=== PATIENT | female | born 1975 | race African-American/Black ===

== ENCOUNTER 2019-11-19 16:49 | Emergency (ER) | payer SELFPAY ==
--- NOTE | 2019-11-19 17:16 | ER ---
Nurse's Notes [facility] Name: Bala Aguilera Age: 43 yrs Sex: Female : 1975 Arrival Date: 11/19/2019 Time: 16:53 Bed 13 Private MD: Diagnosis: Person with feared health complaint in whom no diagnosis is made Presentation: 11/18 16:54 Chief complaint: EMS states: [facility] sent patient because she has a chest xray that ls4 cannot exclude TB, PT STATES THIS IS NOT NEW AND SHE HAS ALREADY GONE THROUGH ALL OF THE STEPS TO BE CLEARED YEARS AGO. Coronavirus screen: Proceed with normal triage. Patient denies a cough. Patient denies shortness of breath or difficulty breathing. Patient denies measured and/or subjective temperature greater than 100.4F prior to today's visit. Patient denies travel on a cruise ship or to a country the [facility] currently lists as an affected area. Patient denies contact with known and/or suspected case of COVID-19. Ebola Screen: No symptoms or risks identified at this time. Risk Assessment: Do you want to hurt yourself or someone else? Patient reports no desire to harm self or others. Onset of symptoms is unknown. 16:54 Method Of Arrival: EMS: [facility] ls4 16:54 Acuity: MINNIE 4 ls4 16:54 Initial Sepsis Screen: Does the patient meet any 2 criteria? No. Patient's initial ls4 sepsis screen is negative. Does the patient have a suspected source of infection? No. Patient's initial sepsis screen is negative. 16:55 Care prior to arrival: None. Activity prior to arrival: None. ls4 Triage Assessment: 16:55 General: Appears in no apparent distress. Behavior is calm, cooperative. Neuro: No ls4 deficits noted. Cardiovascular: Denies chest pain. Respiratory: Airway via trache Respiratory effort is even, unlabored, Respiratory pattern is regular, Ventilator assessment: Breath sounds are clear Breath sounds are diminished bilaterally. Denies shortness of breath labored breathing, air hunger. GI: No signs and/or symptoms were reported involving the gastrointestinal system. : No signs and/or symptoms were reported regarding the genitourinary system. Derm: Reports PRESSURE ULCER TO SACRUM. Musculoskeletal: Circulation, motion, and sensation intact. Capillary refill < 3 seconds, Range of motion: limited in all extremities. 16:55 Pain: Complains of pain in buttocks Pain currently is 5 out of 10 on a pain scale. ls4 Quality of pain is described as aching, Pain began PRESSURE ULCER. 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 - Social history:: Smoking status: Patient denies any tobacco usage or history of. Screenin:55 Abuse screen: Denies threats or abuse. Denies injuries from another. ls4 16:55 Nutritional screening: No deficits noted. Tuberculosis screening: No symptoms or risk ls4 factors identified. Fall Risk None identified. Assessment: 17:55 Reassessment: Pt. tolerated PO Challenge well. rb1 18:06 Reassessment: Patient and/or family updated on plan of care and expected duration. Pain ls4 level reassessed. Patient is alert, oriented x 3, equal unlabored respirations, skin warm/dry/pink. CALLED [facility] FROM PERSONAL PHONE AFTER SEVERAL ATTEMPTS FROM DESK PHONE. SPOKE TO GALLO. REPORT GIVEN TO GALLO, QUESTIONS ANSWERED. GALLO MADE AWARE THAT. 07 02:19 Reassessment: ATTEMPTED TO CALL [facility] FROM HOSPITAL PHONE, NO ANSWER. CALLED FROM [facility] PERSONAL PHONE WITH NO SUCCESS. UNABLE TO CONFIRM WITH [place] REGARDING TRANSPORT FOR PT. Vital Signs: 11/18 16:55 BP 101 / 64; Pulse 78; Resp 24; Temp 98.0(O); Pulse Ox 96% on R/A; Weight 170.1 kg; ls4 Height 5 ft. 9 in. (175.26 cm); Pain 3/10; 18:00 BP 96 / 54; Pulse 88; Resp 22; Pulse Ox 97% on R/A; Pain 3/10; ls4 19:32 BP 98 / 57; Pulse 84; Resp 20; Pulse Ox 97% on R/A; Pain 0/10; ls4 16:55 Body Mass Index 55.38 (170.10 kg, 175.26 cm) ls4 ED Course: 16:53 Patient arrived in ED. ls4 16:55 No apparent distress. ls4 16:55 Patient has correct armband on for positive identification. Bed in low position. Call ls4 light in reach. Side rails up X 1. shelter monitor on. Pulse ox on. NIBP on. Warm blanket given. Verbal reassurance given. Diet: Patient given juice. Tolerated well. 16:55 No provider procedures requiring assistance completed. Patient did not have IV access ls4 during this emergency room visit. Patient maintains SpO2 saturation greater than 95% on room air. 16:59 Triage completed. ls4 17:00 Lorna Monet [facility]-C [facility]. snw 17:00 Derrick Vieira MD is Attending Physician. snw 17:49 Steph Araujo, DARA is Primary Nurse. ls4 20:43 Arm band placed on right wrist. ls4 Administered Medications: 17:50 Drug: [place] 5 mg-325 mg 1 tabs Route: PO; rb1 18:20 Follow up: Response: No adverse reaction; Marked relief of symptoms ls4 Outcome: 17:15 Discharge ordered by MD. snw 20:08 Patient left the ED. ls4 20:08 Discharged to [facility]. Report called to ZITA PATEL. ls4 11/19 02:21 Condition: stable ls4 Discharge instructions given to EMS. Signatures: Lorna Monet FNP-C HORSE GROOMER-Csnw Charley Spence, RN RN rb1 Steph Araujo RN RN ls4 Corrections: (The following items were deleted from the chart) 11/18 20:47 20:43 Immunization history: Adult Immunizations up to date, Last tetanus immunization: ls4 up to date ls4 20:47 20:45 Social history: Smoking status: Patient denies any tobacco usage or history of. ls4 ls4 21:16 20:08 Reassessment: ls4 ls4 11/19 02:15 0707 18:02 General: Appears in no apparent distress. Behavior is calm, cooperative, ls4ls4 11/19 02:15 0707 18:02 Pain: Pain: ls4 ls4 11/19 02:18 02:17 BP 98 / 57; Pulse 84bpm; Resp 20bpm; Pulse Ox 97% RA; Pain 0/10; ls4 ls4 02:19 0707 20:06 Reassessment: Patient and/or family updated on plan of care and expected ls4 duration. Pain level reassessed. Patient is alert, oriented x 3, equal unlabored respirations, skin warm/dry/pink. CALLED [facility] FROM PERSONAL PHONE AFTER SEVERAL ATTEMPTS FROM DESK PHONE. SPOKE TO GALLO. REPORT GIVEN TO GALLO, QUESTIONS ANSWERED. GALLO MADE AWARE THAT ls4
--- NOTE | 2019-11-19 17:16 | EDPHYS ---
Physician Documentation [facility] Name: Bala Aguilera Age: 43 yrs Sex: Female : 1975 Arrival Date: 11/19/2019 Time: 16:53 Bed 13 Private MD: ED Physician Derrick Vieira HPI: 11/18 17:12 This 43 yrs old Female presents to ER via EMS with complaints of Medical Clearance. snw 17:12 The patient or guardian reports Pt has hx of TB, treated, recheck negative. NH wants snw clearance. Chest x-ray done [facility] shows pulmonary edema, Pt with hx of sleep apnea requiring tracheostomy and CHF, COPD. Onset: The symptoms/episode began/occurred gradually. Associated signs and symptoms: The patient has no apparent associated signs or symptoms. Severity of symptoms: At their worst the symptoms were very mild. The patient has experienced similar episodes in the past. It is unknown whether or not the patient has recently seen a physician. pt is currently without complaint. 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 - Social history:: Smoking status: Patient denies any tobacco usage or history of. ROS: 17:17 Constitutional: Negative for fever, chills, and weight loss, Eyes: Negative for injury, snw pain, redness, and discharge, ENT: Negative for injury, pain, and discharge, Neck: Negative for injury, pain, and swelling, Cardiovascular: Negative for chest pain, palpitations, and edema, Respiratory: Negative for shortness of breath, cough, wheezing, and pleuritic chest pain, Abdomen/GI: Negative for abdominal pain, nausea, vomiting, diarrhea, and constipation. 17:17 : Negative for injury, bleeding, discharge, and swelling, MS/Extremity: Negative for injury and deformity, Skin: Negative for injury, rash, and discoloration, Neuro: Negative for headache, weakness, numbness, tingling, and seizure. 17:17 Back: Positive for decreased range of motion, pain at rest, pain with movement, pressure sore to buttock. Exam: 17:15 Head/Face: Normocephalic, atraumatic. Eyes: Pupils equal round and reactive to light, snw extra-ocular motions intact. Lids and lashes normal. Conjunctiva and sclera are non-icteric and not injected. Cornea within normal limits. Periorbital areas with no swelling, redness, or edema. ENT: Nares patent. No nasal discharge, no septal abnormalities noted. Tympanic membranes are normal and external auditory canals are clear. Oropharynx with no redness, swelling, or masses, exudates, or evidence of obstruction, uvula midline. Mucous membranes moist. Neck: Trachea midline, no thyromegaly or masses palpated, and no cervical lymphadenopathy. Supple, full range of motion without nuchal rigidity, or vertebral point tenderness. No Meningismus. + tracheostomy Chest/axilla: Normal chest wall appearance and motion. Nontender with no deformity. No lesions are appreciated. Cardiovascular: Regular rate and rhythm with a normal S1 and S2. No gallops, murmurs, or rubs. Normal PMI, no JVD. No pulse deficits. Respiratory: Lungs have equal breath sounds bilaterally, clear to auscultation and percussion. No rales, rhonchi or wheezes noted. No increased work of breathing, no retractions or nasal flaring. Abdomen/GI: Soft, non-tender, with normal bowel sounds. No distension or tympany. No guarding or rebound. No evidence of tenderness throughout. Back: No spinal tenderness. No costovertebral tenderness. Full range of motion. MS/ Extremity: Pulses equal, no cyanosis. Neurovascular intact. Full, normal range of motion. Neuro: Awake and alert, GCS 15, oriented to person, place, time, and situation. Cranial nerves II-XII grossly intact. Motor strength 5/5 in all extremities. Sensory grossly intact. Cerebellar exam normal. Psych: Awake, alert, with orientation to person, place and time. Behavior, mood, and affect are within normal limits. 17:15 Constitutional: The patient appears alert, awake, obese. 17:15 Skin: Appearance: normal except for affected area, left hand peeling and tender, pressure sore to buttock per pt report. Vital Signs: 16:55 BP 101 / 64; Pulse 78; Resp 24; Temp 98.0(O); Pulse Ox 96% on R/A; Weight 170.1 kg; ls4 Height 5 ft. 9 in. (175.26 cm); Pain 3/10; 18:00 BP 96 / 54; Pulse 88; Resp 22; Pulse Ox 97% on R/A; Pain 3/10; ls4 19:32 BP 98 / 57; Pulse 84; Resp 20; Pulse Ox 97% on R/A; Pain 0/10; ls4 16:55 Body Mass Index 55.38 (170.10 kg, 175.26 cm) ls4 MDM: 17:15 Patient medically screened. snw 17:17 Data reviewed: vital signs, nurses notes. Data interpreted:. Counseling: I had a snw detailed discussion with the patient and/or guardian regarding: the historical points, exam findings, and any diagnostic results supporting the discharge/admit diagnosis, the need for outpatient follow up, to return to the emergency department if symptoms worsen or persist or if there are any questions or concerns that arise at home. 11/18 17:15 Order name: PO challenge; Complete Time: 17:49 snw Administered Medications: 17:50 Drug: [place] 5 mg-325 mg 1 tabs Route: PO; rb1 18:20 Follow up: Response: No adverse reaction; Marked relief of symptoms ls4 Disposition: 11/19/19 17:15 Discharged to Home. Impression: Person with feared health complaint in whom no diagnosis is made. - Condition is Stable. - Medication Reconciliation Form, Thank You Letter, Antibiotic Education, Prescription Opioid Use form. - Follow up: Emergency Department; When: As needed; Reason: Worsening of condition. Follow up: Private Physician; When: As needed; Reason: Recheck today's complaints, Continuance of care, Re-evaluation by your physician. Addendum: 11/21/2019 21:22 Co-signature as Attending Physician, Derrick Vieira MD Did not see or evaluate patient. p s1 I was available in the ED for consultation. Signature for administrative purposes. . Signatures: Lorna Monet, EMY-C IT LEAD-Csnw Charley Spence, RN RN rb1 Derrick Vieira MD MD ps1 Steph Araujo RN RN ls4 Corrections: (The following items were deleted from the chart) 11/18 19:09 17:15 11/19/2019 17:15 Discharged to Home. Impression: Person with feared health ls4 complaint in whom no diagnosis is made. Condition is Stable. Forms are Medication Reconciliation Form, Thank You Letter, Antibiotic Education, Prescription Opioid Use. Follow up: Emergency Department; When: As needed; Reason: Worsening of condition. Follow up: Private Physician; When: As needed; Reason: Recheck today's complaints, Continuance of care, Re-evaluation by your physician. snw 20:08 19:09 11/19/2019 17:15 Discharged to Home. Impression: Person with feared health ls4 complaint in whom no diagnosis is made. Condition is Stable. Forms are Medication Reconciliation Form, Thank You Letter, Antibiotic Education, Prescription Opioid Use. Follow up: Emergency Department; When: As needed; Reason: Worsening of condition. Follow up: Private Physician; When: As needed; Reason: Recheck today's complaints, Continuance of care, Re-evaluation by your physician. ls4 20:47 20:43 Immunization history: Adult Immunizations up to date, Last tetanus immunization: ls4 up to date ls4 20:47 20:45 Social history: Smoking status: Patient denies any tobacco usage or history of. ls4 ls4
[2019-11-19] MEDS ORDERED: HYDROCODONE/APAP 5/325 MG TAB ONE (17:58)
== END 2019-11-19 20:08 | disposition home or self-care (01) ==
LOC: ER 16:49
DX: Z71.1 Person with feared health complaint in whom no diagnosis is made (principal)
CPT/HCPCS: 99284

== ENCOUNTER 2019-11-19 21:04 | Emergency (ER) | payer SELFPAY ==
--- NOTE | 2019-11-19 22:06 | RAD REPORT ---
EXAM DESCRIPTION: Zeinab Single View11/19/2019 9:55 pm CLINICAL HISTORY: Rule out TB COMPARISON: none FINDINGS: If the film is labeled correctly the patient has dextrocardia. The heart is mildly to moderately enlarged. The upper lobe vessels are prominent indicative of pulmonary venous hypertension. Left hilum is prominent which probably is secondary to confluence of pulmonary vessels. Lymphadenopat hy can also have this appearance. There is no radiographic evidence of active tuberculosis. Endotracheal tube in good position
--- NOTE | 2019-11-19 22:10 | ER ---
Nurse's Notes [facility] Name: Bala Aguilera Age: 43 yrs Sex: Female : 1975 Arrival Date: 11/19/2019 Time: 21:05 Bed 19 Private MD: Diagnosis: Encounter for general adult medical examination;Encounter for general adult medical examination without abnormal findings Presentation: 11/18 21:07 Chief complaint: Patient states: patient brought back by EMS after being discharge. rv Coronavirus screen: Proceed with normal triage. 21:07 Method Of Arrival: EMS: [facility] rv 21:09 Ebola Screen: No symptoms or risks identified at this time. rv 21:11 Note [facility] administration reports that they are unable to take this patient back into sg their facility without having documentation that this patient does not have an active TB infection. 21:51 Initial Sepsis Screen: Does the patient meet any 2 criteria? No. Patient's initial rv sepsis screen is negative. Does the patient have a suspected source of infection? No. Patient's initial sepsis screen is negative. Risk Assessment: Do you want to hurt yourself or someone else? Patient reports no desire to harm self or others. Onset of symptoms is unknown. 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 - Social history:: Smoking status: Patient denies any tobacco usage or history of. Screenin:50 Abuse screen: Denies threats or abuse. Denies injuries from another. Nutritional rv screening: No deficits noted. Tuberculosis screening: No symptoms or risk factors identified. Fall Risk No fall in past 12 months (0 pts). Secondary diagnosis (15 points) impaired mobility, IV access (20 points). Ambulatory Aid- None/Bed Rest/Nurse Assist (0 pts). Gait- Impaired (20 pts.). Mental Status- Overestimates/Forgets Limitations (15 pts.). Total Sanches Fall Scale indicates Low Risk Score (25-44 pts). Fall prevention measures have been instituted. Side Rails Up X 2 Placed close to Nursing Station Frequent Obs/Assesments occuring As available Patient and Family Educated on Fall Prevention Program and strategies. Assessment: 21:51 General: Appears uncomfortable, Behavior is calm, cooperative. Pain: Complains of pain rv in buttocks. Neuro: Level of Consciousness is awake, alert, obeys commands, Oriented to person, place, time, situation. Cardiovascular: Patient's skin is warm and dry. Respiratory: Trachea midline Respiratory effort is even, unlabored, Breath sounds are clear bilaterally. Derm: Skin is intact. 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 AWAITING AMBULANCE. 22:30 Reassessment: Spoke with Obstetrics/Gynecology Nurse at [facility], Theodora Lucas and sg spoke with her about the Xray results. Patient has been cleared to send back to [facility]. [facility] contacted for transfer. Vital Signs: 21:45 BP 111 / 70; Pulse 88; Resp 19; Temp 99.1; Pulse Ox 97% on R/A; rv 23:07 BP 118 / 76; Pulse 86; Resp 18; Temp 98.7; Pulse Ox 97% on R/A; rv ED Course: 21:05 Patient arrived in ED. sg 21:06 Iglesia Zafar RN is Primary Nurse. rv 21:22 Elton Camarena MD is Attending Physician. tw4 21:50 Arm band placed on Patient placed in the treatment room, on a stretcher, Patient rv notified of wait time. 21:51 Triage completed. rv 21:52 Patient has correct armband on for positive identification. equity sales assistant on. Pulse rv ox on. NIBP on. 21:57 CXR XRAY In Process Unspecified. EDMS 22:18 No provider procedures requiring assistance completed. Patient did not have IV access rv during this emergency room visit. Administered Medications: No medications were administered Outcome: 22:09 Discharge ordered by . tw4 23:08 Discharged to home via ambulance. rv 23:08 Condition: good 23:08 Discharge instructions given to patient, EMS, Instructed on discharge instructions, follow up and referral plans. Demonstrated understanding of instructions, follow-up care. 23:08 Patient left the ED. rv Signatures: Dispatcher [employer] EDMS Ky Sigala RN RN Elton Ren MD MD tw4 Andrade, Iglesia, RN RN rv
--- NOTE | 2019-11-19 22:10 | EDPHYS ---
Physician Documentation [facility] Name: Bala Aguilera Age: 43 yrs Sex: Female : 1975 Arrival Date: 11/19/2019 Time: 21:05 Bed 19 Private MD: ED Physician Elton Camarena HPI: 11/18 22:03 This 43 yrs old Black Female presents to ER via EMS with complaints of Medical tw4 Clearance. 22:03 Pt seen here earlier for complaint of possible TB. Pt was evaluated and discharged when tw4 [facility],they refused to readmit the patient. NH stated they needed documentation of a normal CXR. Pt currently has no complaints. The patient has been recently seen at the [facility] Emergency Department, today. 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 - Social history:: Smoking status: Patient denies any tobacco usage or history of. ROS: 22:03 Constitutional: Negative for fever, chills, and weight loss, Eyes: Negative for injury, tw4 pain, redness, and discharge, Cardiovascular: Negative for chest pain, palpitations, and edema, Respiratory: Negative for shortness of breath, cough, wheezing, and pleuritic chest pain, Abdomen/GI: Negative for abdominal pain, nausea, vomiting, diarrhea, and constipation, MS/Extremity: Negative for injury and deformity, Skin: Negative for injury, rash, and discoloration, Neuro: Negative for headache, weakness, numbness, tingling, and seizure. 22:03 Back: Positive for pain at rest, Negative for injury or acute deformity, decreased range of motion. Exam: 22:03 Constitutional: This is a well developed, well nourished patient who is awake, alert, tw4 and in no acute distress. Head/Face: Normocephalic, atraumatic. Chest/axilla: Normal chest wall appearance and motion. Nontender with no deformity. No lesions are appreciated. Cardiovascular: Regular rate and rhythm with a normal S1 and S2. No gallops, murmurs, or rubs. Normal PMI, no JVD. No pulse deficits. Respiratory: Lungs have equal breath sounds bilaterally, clear to auscultation and percussion. No rales, rhonchi or wheezes noted. No increased work of breathing, no retractions or nasal flaring. Abdomen/GI: Soft, non-tender, with normal bowel sounds. No distension or tympany. No guarding or rebound. No evidence of tenderness throughout. Back: No spinal tenderness. No costovertebral tenderness. Full range of motion. MS/ Extremity: Pulses equal, no cyanosis. Neurovascular intact. Full, normal range of motion. Neuro: Awake and alert, GCS 15, oriented to person, place, time, and situation. Cranial nerves II-XII grossly intact. Motor strength 5/5 in all extremities. Sensory grossly intact. Cerebellar exam normal. Normal gait. Vital Signs: 21:45 BP 111 / 70; Pulse 88; Resp 19; Temp 99.1; Pulse Ox 97% on R/A; rv 23:07 BP 118 / 76; Pulse 86; Resp 18; Temp 98.7; Pulse Ox 97% on R/A; rv MDM: 21:22 Patient medically screened. tw4 22:03 Data reviewed: vital signs, nurses notes, radiologic studies, plain films. Data tw4 interpreted: Pulse oximetry: Interpretation: borderline. Plan: O2 by NC applied. Test interpretation: by ED physician or midlevel provider: plain radiologic studies. Counseling: I had a detailed discussion with the patient and/or guardian regarding: the historical points, exam findings, and any diagnostic results supporting the discharge/admit diagnosis. Special discussion: I discussed with the patient/guardian in detail that at this point there is no indication for admission to the hospital. It is understood, however, that if the symptoms persist or worsen the patient needs to return immediately for re-evaluation. ED course: CXR does not show any evidence of TB or other acute changes. Cardiomegaly is present on this CXR. Tracheostomy in place. 11/18 21:23 Order name: CXR XRAY; Complete Time: 22:10 tw4 11/18 22:11 Interpretation: No acute disease. tw4 Administered Medications: No medications were administered Disposition: 11/19/19 22:09 Discharged to Home. Impression: Encounter for general adult medical examination, Encounter for general adult medical examination without abnormal findings. - Condition is Stable. - Discharge Instructions: Medical Screening Exam. - Medication Reconciliation Form, Thank You Letter, Antibiotic Education, Prescription Opioid Use, SBAR form form. - Follow up: Private Physician; When: Upon discharge from the Emergency Department; Reason: Recheck today's complaints, Continuance of care, Re-evaluation by your physician. - Problem is new. - Symptoms are unchanged. Signatures: Dispatcher [employer] EDElton Stiles MD MD tw4 Iglesia Zafar RN RN rv Corrections: (The following items were deleted from the chart) 23:08 22:09 11/19/2019 22:09 Discharged to Home. Impression: Encounter for general adult rv medical examination; Encounter for general adult medical examination without abnormal findings. Condition is Stable. Forms are Medication Reconciliation Form, Thank You Letter, Antibiotic Education, Prescription Opioid Use. Follow up: Private Physician; When: Upon discharge from the Emergency Department; Reason: Recheck today's complaints, Continuance of care, Re-evaluation by your physician. Problem is new. Symptoms are unchanged. tw4
[2019-11-19 23:14] VITALS: O2SAT 97
[2019-11-19 23:15] VITALS: BP 118/76; TEMP 98.7
--- OUTSIDE RECORDS SUMMARY | 2019-11-20 02:41 | XMS REPORT | Continuity of Care Document ---
:1975 Author Organization [facility] t Address [address] [place] [address] Care Team Providers Name Role Phone Ana Maria Bravo MD Attending Clinician Archie HARRIS, G Attending Clinician Pauline HARRIS Attending Clinician Salvador HARRIS, J Attending Clinician Eren HARRIS Attending Clinician Yvonne HARRIS Attending Clinician Mary Blevins MD Attending Clinician Luna Red MD Attending Clinician Christiano Attending Clinician Lila Bailey Attending Clinician Archie HARRIS, G Admitting Clinician Problems This patient has no known problems. Allergies, Adverse Reactions, Alerts This patient has no known allergies or adverse reactions. Medications This patient has no known medications. Procedures This patient has no known procedures. Encounters Start End Encounter Admission Attending Care Care Encounter Source Date/Time Date/Time Type Type Clinicians Facility Department ID 2019-09-20 2019-11-15 [facility] Ana Maria Bravo [id number] 22:02:42 12:10:00 Encounter AlmanzaNando miller Shiraz [id number] [facility] [id number] Jeovany Franco [id number] [facility] 0[address] Jason Victor J Carrete, Alma Erickson Lindsay K 2019-11-06 2019-11-06 Transition Ryanne Alvarado [id number] 00:00:00 00:00:00 of Care Jo Sae [id number] Pe[place] [id number] 2018-12-11 2018-12-11 Patient Ryanne Bailey [id number] 00:00:00 00:00:00 Outreach Chandler Quevedo [id number] Pe[place] [id number] Results This patient has no known results.
--- OUTSIDE RECORDS SUMMARY | 2019-11-20 02:42 | XMS REPORT | Summary of Care ---
:1975 Author Organization [facility] Address [address] [place] [id number] Care Team Providers Name Role Phone [facility] Provider [phone] Reason for Visit Reason Comments Transition Of Care Encounter Details Date Type Department Care Team Description 11/06/2019 Transition of Care [facility] Danny Alvarado Transition Of Care [facility]- [address] [place] [id number] Allergies No Known Allergiesdocumented as of this encounter (statuses as of 11/06/2019) Medications Medication Sig Dispensed Refills Start Date End Date Status aspirin 81 mg Take 1 Tab by 30 Tab 5 02/25/2014 S uspended chewable tablet mouth daily. Additional information ferrous sulfate 325 mg Take 325 mg by mouth 3 0 Suspended (65 mg iron) tablet (three) times daily with meals. docusate 100 mg capsule Take 1 capsule by mouth 30 capsule 0 0 05/31/2016 Suspended daily. Additional information multivitamin tablet Take 1 tablet by mouth daily. 60 tablet 2 05/31/2016 Suspended Additional information enalapril 2.5 mg tablet Take 1 tablet by mouth at 90 tablet 3 05/05/2018 Suspended bedtime. Additional information furosemide 20 mg tablet Take 3 tablets by mouth 90 tablet 3 Suspended every morning and evening. Additional information documented as of this encounter (statuses as of 11/06/2019) Active Problems Problem Noted Date Tachycardia 10/27/2019 Anxiety 10/27/2019 Pulmonary hypertension 10/27/2019 Pickwickian syndrome 10/27/2019 Restrictive airway disease 10/27/2019 Prolonged Q-T interval on ECG 10/27/2019 Cholecystitis 10/09/2019 Hypercapnic respiratory failure 09/21/2019 Acute on chronic respiratory failure with hypercapnia 09/20/2019 Overview: Added automatically from request for chloe hugo [id number] Respiratory failure with hypoxia and hypercapnia 10/05 Metabolic encephalopathy 04/29/2018 Acute respiratory failure with hypercapnia 04/29/2018 Symptomatic anemia 04/28/2018 Cholelithiasis 04/28/2018 Lower abdominal pain 04/28/2018 Acute on chronic diastolic CHF (congestive heart failu re) 04/28/2018 Morbid obesity 05/29/2016 Ventral hernia 05/29/2016 Calculus of gallbladder 10/14/2015 Choledocholithiasis 09/06/2015 Menorrhagia 03/19/2014 Essential hypertension 03/19/2014 Anemia 03/19/2014 documented as of this encounter (statuses as of 11/06/2019) Resolved Problems Problem Noted Date Resolved Date Morbid obesity with body mass index of 50 or higher 05/29/19 17 09/21/2019 Obesity (BMI 54) 10/14/2015 09/21/2019 documented as of this encounter (statuses as of 11/06/2019) Immunizations Name Administration Dates Next Due Influenza Virus Vaccine Quad IM 3+ YRS 03/12/2014 documented as of this encounter Social History Tobacco Use Types Packs/Day Years Used Date Current Some Day Smoker Cigarettes 0.5 22 Star owen: 05/15/1998 Smokeless Tobacco: Never Used Alcohol Use Drinks/Week oz/Week Comments No 0 Standard drinks or equivalent 0.0 occasionally Sex Assigned at Date Recorded Not on file Job Start Date Occupation Industry Not on file Not on file Not on file Travel History Travel Start Travel End No recent travel history available. documented as of this encounter Last Filed Vital Signs Not on filedocumented in this encounter Plan of Treatment Health Maintenance Due Date Last Done Comments PNEUMOCOCCAL 0-64 YEARS COMBINED SERIES (1 of 1 - 11/24/1983 PPSV23) DTaP,Tdap,and Td Vaccines (1 - Tdap) 1988 Depression Screening 1989 PAP SMEAR 03/02/2013 03/02/2010 Breast Cancer Screening (MAMMOGRAM) 2017 INFLUENZA VACCINE (Season Ended) 2020 03/12/2014 documented as of this encounter Implants Implanted Type Area Pharmacy Picking Technician Device Shelf Model / Identifier Expiration Serial / Date Lot Mesh Proceed [id number]) Oval Ethicon #[id number] - S0 MESH N/A: A bdomen Ethicon 10/12/2017 PCDG1 / Implanted: Qty: 1 on 05/29/2016 by Geraldine Landis MD at [facility] 0 / [id number] documented as of this encounter Results Not on filedocumented in this encounter Insurance Payer Benefit Plan / Subscriber ID Effective Phone Address T ype Group Dates MEDICAID MEDICAID PENDING 2019-[address] [place] [address] documented as of this encounter
--- OUTSIDE RECORDS SUMMARY | 2019-11-20 02:42 | XMS REPORT | Continuity of Care Document ---
:1975 Author Organization [facility] Address [address] [place] [address] Phone Care Team Providers Name Role Phone Colinbyron PAC Unavailable Unavailable Allergies, Adverse Reactions, Alerts Substance Reaction Status Criticality No Known Allergies Active No Informatio n Medications Medication Instructions Dosage Effective Dates Status Comment s (start - stop) ProAir HFA 90 inhale 2 puff by - Active [P at Resp = 40 mcg/actuation inhalation route pct;] aerosol inhaler every 4 - 6 hours as needed metoprolol take 0.5 Tablet by 12.5 MG - Active [Pa t Resp = 40 tartrate 25 mg oral route 2 times pc t;] tablet every day furosemide 20 mg TAKE 3 TABLET BY 60 MG - Active [Pat Resp = 40 tablet ORAL ROUTE 2 TIMES pct;] EVERY DAY Combivent Respimat inhale 1 puff by 1 puff - Active [Pat Resp = 40 20 mcg-100 inhalation route 4 pct;] mcg/actuation times every day solution for inhalation benazepril 5 mg TAKE 1 TABLET BY - Active [Pat Resp = 40 tablet ORAL ROUTE EVERY DAY pct; ] Problems Condition Type Effective Dates Clinical Status Comments (start - stop) Chronic diastolic Problem (finding) - Active heart failure Sleep apnea Problem (finding) - Active Procedures Procedure Date No Information Results Test Name Date and Time Measure Units Reference Range Abnormal Flag St atus Comments No Information Advance Directives Directive Yes / No Effective Date File Name No Information Encounters Encounter Practice Location Reason(s) Diagnoses Date Provider Provide rs Description For Visit Copied on Encounter [facility] No Information [facility] [place]. Provider: Wellness, Health & [address] Seamus Carrasco, [address] [place] [address], [place]amus [place], [address], [place] [id number], [place], [place], [address], tel:[phone] [place] [address]909 . [place], [place], tel:[phone]. [id number] tel:[phone] [facility] Chronic diastolic Jul-2 [facility] (congestive) heart Angus. Prov ider: Wellness, Health & failurePulmonary [address] hypertension Seamus Carrasco , [address] [place] NOSObstructive [place] [address], sleep apneaMorbid [facility], Seamus Dia [place], (severe) obesity [address], [place] [id number], due to excess [facility] calories [place], [place], [address], tel:[phone] [place] [id number] . [place], tel:[phone]. [id number] tel:[phone] [facility] TC Major depressive [facility] disorder, [facility]. Provider: Wellness, Health & recurrent, [address] Wellness mildAnxiety Seamus Jaime K, [address], [place] disorder, [place] [address], unspecified [address], Seamus Dia MD, [address], [place] [id number], [place], [place], [address], tel:[phone] [place] [id number] . [place], [place], tel:[phone]. [id number] tel:[phone] [facility] Body mass index Blade- [facility] (BMI) 70 or 201 Angus. Provider: Wellness, Health & greater, [address] Wellness adultChronic Seamus Davidson, [address] [place] diastolic [place] [address], (congestive) heart [address], [place] t [place], failureOther iron [address], [place] [id number], deficiency [facility] anemiasObstructive [place], [place], [place] [address], tel:+ [phone] [place] [id number] apneaPulmonary . [place], [place], hypertension tel:+ [phone] . NOSDepressive [id number] tel:[phone] [facility] Chronic diastolic May- [facility] (congestive) heart Jazmin. Pro vider: Wellness, Health & failure [address] Seamus Davidson, [address], [place] [address], ExpSeamus cuevas MD, [address], [place] [id number], [place], [place], [address], tel:+ [phone] [place] [address] . [place], tel:[phone]. [id number] tel:[phone] [facility] Chronic diastolic September- [facility] (congestive) heart Angus. Prov ider: Wellness, Health & failureObstructive 9 [address] sleep Seamus Davidson, [address] [place] apneaHepatomegaly [place] [address], NOSAnemiaBody mass [place], Phillip Dia MD, index (BMI) 70 or [address], [place] [id number], greater, adult [place], [place], [address], tel:+ [phone] [place] [id number] . [place], [place], tel:+ [phone]. [id number] tel:[phone] Family History Family Member Type Diagnosis Age At Onset Mother Problem (finding) Stroke Maternal grandmother Problem (finding) Cancer, gastric Mother Problem (finding) Congestive heart failure Mother Problem (finding) Coronary artery disease Immunizations Vaccine Date Status Comments No Information Payers Payer name Insurance type Covered constitution party ID Authorization(s ) No Information Social History Type Description Quantity Date Captured Comments Sex Female Smoking Status No Information Vital Signs Date / Height Weight BMI Pulse Blood Temperature Respiratory Body Head BMI Pulse Inhaled Time: Rate Pressure Rate Surface Circumference percenti le Ox Ox Area No Information Chief Complaint And Reason For Visit No Information Reason For Referral Reason For Referral No Information Plan Of Treatment Date Type Action Status Goal Dietary management education, gu idance, and counseling completed Goal Dietary management education, gu idance, and counseling completed Goal Lifestyle education regarding di et completed Referral Ordered: ordered Referrals: Behavioral Health. Ev aluate and treat Referral Ordered: ordered Referrals: [facility]. Evaluate an d treat Referral Ordered: ordered Referrals: Cardiology. Evaluate and treat Referral Ordered: ordered Referrals: Pulmonology. Evaluate and treat History Of Present Illness Encounter Date Complaint History Of Present I llness No Information Functional Status Date Functional Assessment No Information Medications Administered Medication Instructions Dosage Effective Dates (start - stop) Sta tus Comments No Information Instructions Date Instruction Additional Informati on ER precautions givenLow sodium dietShe R elated to Chronic diastolic needs to follow up for labs, but unable (congestive) heart failure to, due to Covid-19 emergencyTake daily weights if possibleCall if symptoms changeSchedule appointment as soon as appointments are available. Continue BP diary Dietary management education, guidance, Related to Morbid (severe) obesity and counseling due to excess calori es Self-Management Goal was discussed Discharge Hb/Hct 7.8/35.1 Related to Oth er iron deficiency anemias Refer to counseling Related to Depressiv e disorder Patient to reapply to CIHCPRefer to Rela owen to Chronic diastolic [facility] CHPLow sodium dietCMP today (conges tive) heart failure Dietary management education, guidance, Related to Body mass index (BMI) and counseling 70 or greater, adult Restart Furosemide 20mg 3 tabs po twice Related to Chronic diastolic dailyRestart EMERSON inhibitor: Benazepril (congestive) heart failure 5mg 1 tab dailyRefer to Cardiology Urged compliance with CPAPRefer to Relat ed to Obstructive sleep apnea pulmonology Will repeat CBCWill determine how much R elated to Anemia iron supplementation is needed or if transfusion needed Giving encouragement to exercise Related to Body mass index (BMI) 70 or greater, adult Lifestyle education regarding diet Relat ed to Body mass index (BMI) 70 or greater, adult Assessments Type Assessment Date No Information Goals Health Concern Goal Type Priority Status Date No Information Medical Equipment Description Device Broad Run Device Identifier Effective Jin es (start - stop) Status No Information Mental Status Date Cognitive Assessment No Information Health Concerns Observation Date No Information Concern Status Date No Information Physical Examination Exam Findings Details No Information
--- OUTSIDE RECORDS SUMMARY | 2019-11-20 03:03 | XMS REPORT | Summary of Care ---
:1975 Author Organization [facility] Address [address] [place] [id number] Care Team Providers Name Role Phone [facility] Primary Care Provider [phone] Reason for Referral (Routine) Status Reason Specialty Diagnoses / Referred By Referred To Procedures Contact Contact Pending Review Diagnoses Acute on chronic respiratory failure with hypoxia and hypercapnia Gillian Red [facility] Procedures Discharge Follow-up: PCP [facility]; 3 Months MD Luna on, [id number], [place] [id number] [place], [place] Phone: [phone] Phone: (Routine) Status Reason Specialty Diagnoses / Referred By Referred To Procedures Contact Contact New Request IM-GASTROENTEROLO Diagnoses Acute on chronic respiratory failure with hypoxia and hypercapnia Teofilo G[facility] Procedures Discharge Follow-Up: Specialty Service IM-GASTROENTEROLOGY; 3 Months Gillian Carrasco MD [address] [place] [address] (Routine) Status Reason Specialty Diagnoses / Referred By Referred To Procedures Contact Contact New Request OB-GYNECOLOGY Diagnoses Acute on chronic respiratory failure with hypoxia and [facility]capnia [facility], Procedures Discharge Follow-Up: Specialty Service OB-GYNECOLOGY; 3 Months Gillian Carrasco MD [address] [place] [address] (Routine) Status Reason Specialty Diagnoses / Referred By Referred To Procedures Contact Contact New Request Diagnostic Diagnoses SOB (shortness of breath) Alma Blevins Radiology Procedures MOD BARIUM SWALLOW, (FRAN Hernandez MD [address] [place] [address] (Routine) Status Reason Specialty Diagnoses / Referred By Referred To Procedures Contact Contact Closed Case Management Procedures Alma Blevins, CONSULT/[place] [address] (Routine) Status Reason Specialty Diagnoses / Referred By Referred To Procedures Contact Contact Pending Review Case Management Procedures Alma Blevins Vicki A, CONSULT/REFERRAL MD DARA HernandezPATROL COMMANDER[address] [place] [address] Phone: Radiology Services (Routine) Status Reason Specialty Diagnoses / Referred By Referred To Procedures Contact Contact New Request Diagnostic Diagnoses SOB (shortness of breath) Alma Blevins Radiology Procedures XR CHEST 1 KODI Hernandez MD [address] [place] [address] Radiology Services (Routine) Status Reason Specialty Diagnoses / Referred By Referred To Procedures Contact Contact New Request Diagnostic Diagnoses SOB (shortness of breath) Al[facility] B[facility]ins Radiology Procedures XR KNEE 3 VW DONAVAN Hernandez MD [address] [place] [address] (Routine) Status Reason Specialty Diagnoses / Referred By Referred To Procedures Contact Contact New Request Diagnostic Diagnoses SOB (shortness of breath) Alma Blevins Radiology Procedures FL BARIUM SWALLOW ESOPHAGUS MD Mary [address] [place] [address] MRI/CAT Scan (Routine) Status Reason Specialty Diagnoses / Referred By Referred To Procedures Contact Contact New Request Diagnostic Diagnoses SOB (shortness of breath) Alma Blevins Radiology Procedures CT CHEST PULMONARY ANGIOGRAM MD Mary [address] [place] [address] (Routine) Status Reason Specialty Diagnoses / Referred By Referred To Procedures Contact Contact New Request Diagnostic Diagnoses SOB (shortness of breath) Alma Blevins Radiology Procedures MOD BARIUM SWALLOW, (MARGE) MD Mary [address] [place] [address] Radiology Services (STAT) Status Reason Specialty Diagnoses / Referred By Referred To Procedures Contact Contact New Request Diagnostic Diagnoses Hypoxia Carrete, Yael, Radiology Procedures XR CHEST 1 VW [address] [place] [address] Radiology Services (Routine) Status Reason Specialty Diagnoses / Referred By Referred To Procedures Contact Contact New Request Diagnostic Diagnoses SOB (shortness of breath) Eren, Radiology Procedures Abdominal 1 View - To confirm Dobhoff / Small-bore (non-styleted) enteral feeding tube placement. MD Valentin [address] [place] [address] Radiology Services (Routine) Status Reason Specialty Diagnoses / Referred By Referred To Procedures Contact Contact New Request Diagnostic Diagnoses Acute respiratory failure with hypercapnia Eren, Radiology Procedures XR KUB MD Valentin [address] [address] Radiology Services (Routine) Status Reason Specialty Diagnoses / Referred By Referred To Procedures Contact Contact New Request Diagnostic Diagnoses Acute on chronic respiratory failure with hypercapnia Eren, Radiology Procedures XR CHEST 1 VW MD Valentin 301 [place] [id number] Radiology Services (JEFF) Status Reason Specialty Diagnoses / Referred By Referred To Procedures Contact Contact New Request Diagnostic Diagnoses SOB (shortness of breath) Pauline, Radiology Procedures XR CHEST 1 VW MD Mustapha [address] [place] [address] Radiology Services (STAT) Status Reason Specialty Diagnoses / Referred By Referred To Procedures Contact Contact New Request Diagnostic Diagnoses SOB (shortness of breath) Pauline, Radiology Procedures XR KUB MD Mustapha [address] [place] [address] Radiology Services (Routine) Status Reason Specialty Diagnoses / Referred By Referred To Procedures Contact Contact New Request Diagnostic Diagnoses Acute respiratory failure with hypercapnia Pauline, Radiology Procedures NM HEPATOBILIARY MD Mustapha [address] [place] [address] Radiology Services (STAT) Status Reason Specialty Diagnoses / Referred By Referred To Procedures Contact Contact New Request Diagnostic Diagnoses SOB (shortness of breath) Franco, Radiology Procedures XR CHEST 1 VW Jeovany Zaidi Jr., MD [address] [place] [address] Radiology Services (JEFF) Status Reason Specialty Diagnoses / Referred By Referred To Procedures Contact Contact New Request Diagnostic Diagnoses SOB (shortness of breath) Salvador, Radiology Procedures US ABDOMEN LIMITED Jeovany Zaidi Jr., MD [address] [place] [address] Radiology Services (JEFF) Status Reason Specialty Diagnoses / Referred By Referred To Procedures Contact Contact New Request Diagnostic Diagnoses SOB (shortness of breath) Hypoxia Acute on chronic congestive heart failure, unspecified heart failure type Respiratory failure, unspecified chronicity, unspecified whether with hypoxia or hypercapnia Respiratory acidosis Main Samuel, Radiology Bilateral leg ed valeria Acute respiratory failure with hypercapnia Lower abdominal pain Acute on chronic respiratory failure with hypercapnia Choledocholithiasis Morbid obesity with BMI of 70 and over, adult Symptomatic anemia Acute on chronic diastolic CHF (congestive heart failure) Metabolic encephalopathy [address] [facility] Procedures Chest 1 [place] [address] Radiology Services (JEFF) Status Reason Specialty Diagnoses / Referred By Referred To Procedures Contact Contact New Request Diagnostic Diagnoses SOB (shortness of breath) Franco, Radiology Procedures XR VELMA Zaidi Jr., MD [address] [place] [address] Radiology Services (Routine) Status Reason Specialty Diagnoses / Referred By Referred To Procedures Contact Contact New Request Diagnostic Diagnoses SOB (shortness of breath) Franco, Radiology Procedures XR VELMA Zaidi Jr., MD [address] [place] [address] Radiology Services (JEFF) Status Reason Specialty Diagnoses / Referred By Referred To Procedures Contact Contact New Request Diagnostic Diagnoses Lower abdominal pain Franco, Radiology Procedures XR VELMA Zaidi Jr., MD [address] [place] [address] (Routine) Status Reason Specialty Diagnoses / Referred By Referred To Procedures Contact Contact New Request Procedures Jeovany Franco Jr., MD DUPLEX UPPER BY 301 [facility] [place] [address] Radiology Services (JEFF) Status Reason Specialty Diagnoses / Referred By Referred To Procedures Contact Contact New Request Diagnostic Diagnoses Acute respiratory failure with hypercapnia Franco, Radiology Procedures XR CHEST 1 KODI Zaidi Jr., MD [address] [place] [address] Radiology Services (JEFF) Status Reason Specialty Diagnoses / Referred By Referred To Procedures Contact Contact New Request Diagnostic Diagnoses Acute respiratory failure with hypercapnia Pauline, Radiology Procedures XR CHEST 1 KODI Luciano MD [address] [place] [address] Radiology Services (STAT) Status Reason Specialty Diagnoses / Referred By Referred To Procedures Contact Contact New Request Diagnostic Diagnoses SOB (shortness of breath) Pauline, Radiology Procedures XR CHEST 1 VW MD Mustapha [address] [place] [address] Radiology Services (STAT) Status Reason Specialty Diagnoses / Referred By Referred To Procedures Contact Contact New Request Diagnostic Diagnoses SOB (shortness of breath) Pauline, Radiology Procedures XR CHEST 1 VW MD Mustapha [address] [place] [address] Radiology Services (JEFF) Status Reason Specialty Diagnoses / Referred By Referred To Procedures Contact Contact New Request Diagnostic Diagnoses SOB (shortness of breath) Archie, Radiology Procedures XR CHEST 1 Nando Tian MD [address] [place] [address] (Routine) Status Reason Specialty Diagnoses / Referred By Referred To Procedures Contact Contact New Request Vascular Surgery Procedures Almanza, BILATERAL VENOUS Nando Tian MD DUPLEX LOWER 301 [facility] EXTREMITY BY [facility] [place] [address] Radiology Services (STAT) Status Reason Specialty Diagnoses / Referred By Referred To Procedures Contact Contact New Request Diagnostic Diagnoses SOB (shortness of breath) Archie, Radiology Procedures XR CHEST 1 Nando Tian MD [address] [place] [address] Radiology Services (Routine) Status Reason Specialty Diagnoses / Referred By Referred To Procedures Contact Contact New Request Diagnostic Diagnoses SOB (shortness of breath) Acute on chronic congestive heart failure, unspecified heart failure type Respiratory failure, unspecified chronicity, unspecified whether with hypoxia or hypercapnia Almanza, Radiology Procedures Abdominal 1 View - To confirm nasogastric tube placement. Nando Tian MD [address] [place] [address] Radiology Services (STAT) Status Reason Specialty Diagnoses / Referred By Referred To Procedures Contact Contact New Request Diagnostic Diagnoses SOB (shortness of breath) Lawrence, Radiology Procedures XR CHEST 1 VW Ana Maria Cornejo MD 301 [facility] [id number] [place] [address] Reason for Visit Reason Comments Shortness of Breath Auth/Cert Status Reason Specialty Diagnoses / Referred By Referred To Procedures Contact Contact Emergency Medicine [facility] [address] [place] [phone] Fax: Encounter Details Date Type Department Care Team Description 09/20/2019 - Hospital Encounter Medicine (NAWAF 10B) Ana Maria Bravo MD [address] [id number] Acute on chronic [facility]/15/2019 2 [facility] [address] [address] respiratory failure [place], [place] Mustapha Carpenter MD [address] [place], [place] [address] with hypercapnia [address] Jeovany Franco Jr., MD [address] [address] [phone] Valentin Jason MD 301 [facility] [id number] [place], [place] [id number] Yael Russell MD [address] [place] [address] Alma Blevins MD 301 [facility] [id number] [place], [place] [phone] Gillian Red MD 301 [facility] [id number] [place], [place] [address] Allergies No Known Allergiesdocumented as of this encounter (statuses as of 11/15/2019) Medications Medication Sig Dispensed Refills Start Date End Date Status multivitamin Take 1 tablet 60 tablet 2 05/31/2016 Ac tive tablet by mouth daily. acetaminophen-cod Take 1 tablet 180 tablet 0 11/14/2019 Active eine 300-30 mg by mouth every tablet 4 (four) hours as needed for Pain (scale 4-6) or Pain (scale 7-10). bacitracin-polymy Apply to 0 11/14/2019 A ctive marj affected b/nystatin/zinc area(s) as oxide ointment needed (Wound 1:1:1 care). (COMPOUNDED) bumetanide 2 mg 1 tablet every 0 11/14/2019 Active tablet morning and evening. clonazePAM 0.5 mg Take 1 tablet 30 tablet 0 11/15/2019 Active tablet by mouth daily. ipratropium-albut Inhale 3 mL 0 11/14/2019 Active sanford 0.5 mg-3 every 6 (six) mg(2.5 mg base)/3 hours. mL nebulizer solution Magnesium Oxide Take 800 mg by 0 11/15/2019 Active 420 mg Tab mouth daily. metoprolol Take 0.5 0 11/14/2019 Active tartrate 25 mg tablets by tablet mouth 2 (two) times daily. pantoprazole 40 Take 1 tablet 0 11/14/2019 Active mg EC tablet by mouth 2 (two) times daily. ramelteon 8 mg Take 1 tablet 0 11/14/2019 Active tablet by mouth at bedtime. sennosides-docusa Take 1 tablet 0 11/14/2019 Active te sodium 8.6-50 through mg per tablet enteral tube 2 (two) times daily. sodium chloride Inhale 4 mL 4 mL 0 11/14/2019 A ctive 7% nebulizer every 6 (six) solution hours. warfarin 2.5 mg Take 5 tablets 0 11/14/2019 Active tablet by mouth every evening. aspirin 81 mg Take 1 Tab by 30 Tab 5 02/25/2014 D iscontinued chewable tablet mouth daily. 0 gabapentin Take 300 mg by 0 Disc ontinued (NEURONTIN) 300 mouth 3 0 (Con dition no mg capsule (three) times longe r warrants) daily. ferrous sulfate Take 325 mg by 0 Discontinued 325 mg (65 mg mouth 3 0 iron) tablet (three) times daily with meals. traMADOL 50 mg Take 1 tablet 45 tablet 0 05/31/2016 Discontinued tablet by mouth every 0 (Cond ition no 6 (six) hours. longe r warrants) docusate 100 mg Take 1 capsule 30 capsule 0 05/31/2016 02 Discontinued capsule by mouth 0 daily. enalapril 2.5 mg Take 1 tablet 90 tablet 3 05/05/2018 11/14/19 2 Discontinued tablet by mouth at 0 bedtime. furosemide 20 mg Take 3 tablets 90 tablet 3 05/05/2018 02 Discontinued tablet by mouth every 0 morning and evening. albuterol 90 Inhale 2 Puffs 8.5 g 3 05/05/2018 D iscontinued mcg/actuation every 6 (six) 0 inhaler hours as needed for Wheezing or Shortness of Breath. albuterol-ipratro Inhale 1 Puff 4 g 8 05/05/2018 02 Discontinued pium 20-100 4 (four) times 0 mcg/actuation daily. 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 Prolonged Q-T interval on ECG 10/27/2019 Cholecystitis 10/09/2019 Hypercapnic respiratory failure 09/21/2019 Acute on chronic respiratory failure with hypercapnia 09/20/2019 Overview: Added automatically from request for chloe hugo [id number] Respiratory failure with hypoxia and hypercapnia 10/05 Metabolic encephalopathy 04/29/2018 Acute respiratory failure with hypercapnia 04/29/2018 Symptomatic anemia 04/28/2018 Cholelithiasis 04/28/2018 Lower abdominal pain 04/28/2018 Acute on chronic diastolic CHF (congestive heart failu re) 04/28/2018 Morbid obesity 05/29/2016 Ventral hernia 05/29/2016 Calculus of gallbladder 10/14/2015 Choledocholithiasis 09/06/2015 Menorrhagia 03/19/2014 Essential hypertension 03/19/2014 Anemia 03/19/2014 documented as of this encounter (statuses as of 11/15/2019) Resolved Problems Problem Noted Date Resolved Date Morbid obesity with body mass index of 50 or higher 05/29/19 17 09/21/2019 Obesity (BMI 54) 10/14/2015 09/21/2019 documented as of this encounter (statuses as of 11/15/2019) Immunizations Name Administration Dates Next Due Influenza [...] Travel End No recent travel history available. COVID-19 Exposure Response Date Recorded In the last month, have you been in contact with No / Unsure 09/20/2019 10:01 PM CDT someone who was confirmed or suspected to have Coronavirus / COVID-19? documented as of this encounter Last Filed Vital Signs Vital Sign Reading Time Taken Comments Blood Pressure 124/74 11/15/2019 8:10 AM CDT Pulse 94 11/15/2019 11:40 AM CDT Temperature 37 C (98.6 F) 11/15/2019 8:10 AM CDT Respiratory Rate 18 11/15/2019 11:40 AM CDT Oxygen Saturation 93% 11/15/2019 11:40 AM CDT Inhaled Oxygen Concentration - - Weight 199.4 kg (439 lb 9.6 oz) 11/08/2019 12:34 PM CDT Height 175.3 cm (5' 9") 11/08/2019 12:34 PM CDT Body Mass Index 64.92 11/08/2019 12:34 PM CDT documented in this encounter Discharge Instructions AttachmentsThe following attachments cannot be sent through Care Everywhere. Warfarin tablets (South African)Warfarin, What to Know When Taking (South African)Blood Thinners (Anticoagulants), Using (South African) [facility] A Patient's Guide to Using Warfarin (Coumadin) (South African)Embolism, Pulmonary (South African)Stroke, Risk Factors for (South African)Stroke, Symptoms (South African)Metoprolol tablets (South African)Care, Tracheostomy (South African)Caring for Your Tracheostomy Tube and Stoma, Discharge Instructions (South African)Tracheostomy Care (South African)Tracheostomy Tube, Adjusting to Your (South African)Tracheostomy Tube, Your: Learning How to Communicate (South African) Tracheostomy Tube, Your, Answers to Common Questions About (South African)Tracheostomy Tube, Your: Tips for Eating (South African)International Normalized Ratio (South African) documented in this encounter Progress Notes Emily Parsons PTA - 11/15/2019 12:50 PM CDTPhysical Therapy Progress Note: Discharge Recommendations: Patient would benefit from continued physical therapy services to address: decline in bed mobility decline in transfers decline in gait and/or balance decreased strength decreased range of motion decreased endurance Challenges to Home Transition: increased risk of falls decreased caregiver availability decreased safety awareness Environmental barriers Equipment recommendations: Bariatricwheelchair, hospital bed and mechanical lift PAIN: -Pain Location: L knee -Pain rating before treatment: 0, does not rate, After treatment: does not rate -Pain Management: Nursing Notified PRECAUTIONS: Weight Bearing Precaution:WBAT General Precautions:PPE used:Gloves and Surgical mask, General, Fall, oxygen:Trach collar Bracing/Cast present or required:N/A S: Patient agreeable to working with PT. O: Patient met Semi reclined in bed. Patient seen for the following: Bed mobility: Rolling: Maximal assist cued patient on body mechanics Transfers: dependent transfer from bed to chair via Vanessa lift Therapeutic exercise: patient educated in Energy conservation, Fall prevention, General strengthening, Positioning, Relaxation/breathing techniques and Safety awareness., instructed patient in the following: ankle pumps,quad sets, glut sets, heel slides, patient/caregiver verbalizes understanding of instructions. After session, patient sitting on [facility] with Vanessa lift sling under and attached to lift and call bellprovided. A: Patient tolerated session fair. Patient progressing toward goals . P: PT will - progress mobility. Total Timed Tx Codes in Minutes: 45 Min Total Treatment Time in Minutes: 45 Min Emily Parsons PTA Pager #: [phone] Supervising PT Beatrice Bansal Bar Chan [facility] - 11/15/2019 6:21 AM CDTPharmacy Note for Warfarin Monitoring Pharmacy to monitor warfarin dosing for patient Vinnie Aguilera, [id number]. Indication: bilateral pulmonary emboli (CTA of the chest on 10/29/19) Goal INR: 2-3 Warfarin dosage prior to admission: none; warfarin initiated this hospitalization on 10/31/19 Most recent INR: 2.7 this morning Current warfarin dosage: 12.5 mg daily at 1700 Date INR Warfarin dose received 11/02/19 1.0 7.5 mg 11/03/19 1.0 10 mg (7.5 mg + 2.5 mg) 11/04/19 1.0 10 mg 11/05/19 1.3 10 mg 11/06/19 1.4 12.5 mg (10 mg + 2.5 mg) 11/07/19 1.7 10 mg 11/08/19 1.7 12.5 mg 11/09/19 1.8 12.5 mg 11/10/19 1.9 12.5 mg 11/11/19 2.0 12.5 mg 11/12/19 1.8 15 mg (12.5 mg + 2.5 mg) 11/13/19 2.0 15 mg (12.5 mg + 2.5 mg) 11/14/19 2.5 12.5 mg 11/15/19 2.7 Assessment and Recommendations: 1. Ms. Aguilera's INR increased from 2.0 two days ago to 2.5 yesterday, but her INR increased less today to 2.7 after having received a total of 15 mg of warfarin each day on 11/12/19 and 11/13/19. Therefore, I would recommend continuing warfarin 12.5 mg daily at 1700 as currently ordered for today, 11/15/19 . 2. If Ms. Aguilera is discharged today, I concur with discharging her on warfarin 12.5 mg daily as is currently prescribed. I will continue to follow the patient while she remains hospitalized at [facility]. Page me with any questions. Bar Marquez (Eddie), Pharm.D., [facility] Pager: [phone] signed by Bar Marquez [facility] at 11/15/2019 6:23 AM Danielle Santillan RN - 11/14/2019 3:55 PM JOSE EDUARDOTCM received phone call from [facility] [phone]- at 1546 stating that equipmenthas not arrived for patient and we will have to deffer discharge for tomorrow 11/14. CM reached out tonurse- Shegory- regarding status. CM rescheduled ambulance for 1100 11/14. Danielle Hanks (Allie) RN-BSN Revenue Accountant [facility] Care Management (not for patient use) Office: [phone] [email or web address] Verenice Barakat, OCCUP THER - 11/14/2019 11:55 AM CDT Physical Therapy Progress Note: Discharge Recommendations: Patient would benefit from continued physical therapy services to address: decline in bed mobility decline in transfers decline in gait and/or balance decreased strength decreased range of motion decreased endurance Challenges to Home Transition: increased risk of falls decreased caregiver availability decreased safety awareness Environmental barriers Equipment recommendations: Bariatric wheelchair, hospital bed and mechanical lift PAIN: -Pain Location: L knee -Pain rating before treatment: does not rate, After treatment: does not rate -Pain Management: Nursing Notified and Repositioning Provided PRECAUTIONS: Weight Bearing Precaution: WBAT General Precautions: PPE used:Gloves and Surgical mask, General, Fall, IV x 1, oxygen: Trach collar Bracing/Cast present or required:N/A S: Patient agreeable to working with PT. Pt reports she needs to use the BSC. O: Patient met Semi reclined in bed. Patient seen for the following: Bed mobility: Reclined to sitting: SBA/Setup Sitting balance Fair+ Scooting to edge of bed: SBA/Setup Repositioned patient to head of bed: Dependent, with use of vanessa sling analyzed pt to utilize bed rails to assist with righting trunk to midline Transfers: Sit to stand: Maximal assist, x 2 using Bariatric RW however patient unable to achieve full erectstance adjusted bed height for ease of standing Sit to stand: Min A x 2 using Bariatric RW Stand to sit: Minimal assist using Bariatric RW Stand pivot transfer: CGA Vanessa lift transfer from recliner to bed: Dependent x 2 Static/dynamic standing balance: Fair Verbal cueing provided for correct hand placement and correct use of AD facilitated assistance to B hips inhibited L knee flexion due to LLE weakness Incorporated pre-gait Patient reports she would rather return to bed due to difficulty with adjusting position and being uncomfortable in recliner Pre-Gait: Weight shifting Forward/backward small steps Facilitated L knee extension to prevent L knee buckling Therapeutic exercise: patient educated in Adaptive equipment , Compensatory techniques/adaptive strategies, Energy conservation, Fall prevention, General strengthening, Positioning, Relaxation/breathing techniques and Safety awareness., instructed patient in the following: ankle pumps, quad sets, glut sets, heel slides,hip abduction/adduction, hip internal/external rotation, straight leg raises, long arc quads, seatedmarching educated pt on the importance of performing BLE exercises incorporated assistance as needed After session, patient Semi reclined in bed and call fields provided. A: Patient tolerated session well. Patient progressing toward goals and exhibits good participation throughout session. P: PT will - progress functional mobility. Total Timed Tx Codes in Minutes: 76 Min Total Treatment Time in Minutes: 76 Min Verenice Barakat PTA Pager # [phone] Supervising PT Pilo Fung Radha Gabriel LMSW - 11/14/2019 11:38 AM CDTCM Pharmaceutical Sales Representative Note Pharmaceutical Sales Representative contacted [facility] (P) [phone] to request status of quote request. Managerinformed patient accepted and will provide manager food safety ELISHA quote via email. CC notified. Radha Stapleton LMSW ACM Pharmaceutical Sales Representative, Care Management O [phone] Sonia [email or web address] F [phone] Thania Sidhu OTA - 11/14/2019 10:03 AM CDTOCCUPATIONAL THERAPY NOTE: Discharge Recommendations: Therapy Needs and Potential:- Patient would benefit from continued skilled occupational therapy services to address:Decline in basic activities of daily living, Decline in instrumental activities of daily living, Decreased strength, Decreased range of motion, Decreased endurance and Caregiver training - Patient demonstrates good potential to improve and meet therapy goals with further skilled occupational therapy services. - Patient appears motivated to improve their B/IADLs and return to their previous level of function. Challenges to Home Transition:- Requires physical assistance for BADLS - Requires physical assistance for IADLS - Increased risk of falls - Environmental barriers Equipment Recommendations:bariatric BSC, WC, Hospital Bed, and Vanessa Lift Precautions: WB: NA General: PPE Utilized: Gloves and Surgical mask, Fall, Morbid obesity and aerosol Bracing: N/A S: Patient agreeable to participate in occupational therapy. PAIN Patient had reports of pain saad knees, but did not rate. O: Patient found semireclining in bed. Patient seen this date for the following: ADL Training SBA for recline to sit using bed rails. increased time needed and cues for improved body mechanics Grooming: Minimal assist UB Dressing: Minimal assist with increased time LB Dressing: Dependent with poor effort Toilet Transfer: CGA. Simulated from edge of bed to bedside recliner using [employer] RW for support Patient educated about fall prevention and safety awareness. GOLDBERG observed and analyzed patient's body mechanics thru out session, especially during transitional movements and standing pivot and offered recommendations to improve techniques to reduce patient's fall risk and increase patient's overall safety and independence during ADLs. Static standing tolerance approx 6-7 minutes with [employer] RW Therapeutic Exercise/Procedure Patient seen for Towel/dowel and General strengthening : Patient performed Shoulder flexion/extension, Shoulder abduction/adduction, Shoulder internal rotation/external rotation, Elbow flexion/extension and Wrist flexion/extension, Patient completed 2 sets of 12 reps, Patient required tactile and/or verbal cueing to perform exercises with correct technique Patient/caregiver returns demonstration x 12 repetitions as follows: Tactile and verbal cues provided for correct technique. Neuromuscular Re-Education Patient sustains dynamic sitting balance x 15 minutes with fluctuating levels of SBA/Setup. Patient performs the following sitting balance activities: Facilitated trunk leaning in all planes to target postural control. Patient left semireclining in bed with call fields in reach. Vanessa lift transfer from bedside chair tobed. A: Patient exhibited Good participation in therapy and responded well to treatment this session. Patient is progressing toward goal(s) 1, 2, 4, 6 and 7. Pain, Poor endurance and morbid obesity remain(s) a limiting factor. P: Daily living activities and Therapeutic exercises to maximize patient's safety and independence with BADLs. ASHLYN Bautista Pager [phone] Supervising OTR: Charlotte Kim Total Timed Treatment Codes: 76 Min Total Treatment Time: 76 Min Bar Chan [facility] - 11/14/2019 7:55 AM CDTPharmacy Note for Warfarin Monitoring Pharmacy to monitor warfarin dosing for patient Vinnie Aguilera, [id number]. Indication: bilateral pulmonary emboli (CTA of the chest on 10/29/19) Goal INR: 2-3 Warfarin dosage prior to admission: none; warfarin initiated this hospitalization on 10/31/19 Most recent INR: 2.5 this morning Current warfarin dosage: 12.5 mg daily at 1700 Date INR Warfarin dose received 11/01/19 1.0 5 mg 11/02/19 1.0 7.5 mg 11/03/19 1.0 10 mg (7.5 mg + 2.5 mg) 11/04/19 1.0 10 mg 11/05/19 1.3 10 mg 11/06/19 1.4 12.5 mg (10 mg + 2.5 mg) 11/07/19 1.7 10 mg 11/08/19 1.7 12.5 mg 11/09/19 1.8 12.5 mg 11/10/19 1.9 12.5 mg 11/11/19 2.0 12.5 mg 11/12/19 1.8 15 mg (12.5 mg + 2.5 mg) 11/13/19 2.0 15 mg (12.5 mg + 2.5 mg) 11/14/19 2.5 Bridging anticoagulation: continuous infusion of heparin (restarted 11/12/19 due to INR of 1.8 on 11/12/19) Assessment and Recommendations: 1. Ms. Aguilera's INR increased from 2.0 yesterday to 2.5 today after receiving a total of 15 mg of warfarin each day the past two days. Therefore, I would recommend continuing warfarin 12.5 mg daily [id number] as currently ordered for today, 11/14/19. 2. Ms. Aguilera's INR has been 2.0 or greater the past two days and is 2.5 today. Therefore, I would recommend discontinuing the continuous infusion of heparin as soon as possible. I will continue to follow the patient. Page me with any questions. Bar "Félix" Jimmy Pharm.D., [facility] Pager: [phone] signed by Bar Marquez [facility] at 11/14/2019 7:57 AM Lisa Florez MD - 11/14/2019 6:28 AM CDT PGY-1 [facility] Team Progress Note Date of Service: 11/14/2019 06:28 Date of Admission: 09/20/2019 Chief Complaint: dyspnea 24-HOUR EVENTS: No acute events overnight. SUBJECTIVE: Patient seen and examined at bedside. Patient reports anxiety overnight, with nervousness and sweats. She also reports her trach collar is too tight and is bothering her. Otherwise, no acute complaints. ROS: negative for cp, sob. Positive for headache, tingling/numbness on left hand and left leg. PHYSICAL EXAM: Vitals: 11/14/19 0033 11/14/19 0034 11/14/19 0045 11/14/19 0408 BP: 124/73 138/79 BP Location: Right leg Patient Position: Sitting Supine Pulse: 97 97 98 99 Resp: Temp: 37.1 C (98.8 F) 35.6 C (96.1 F) TempSrc: Oral Oral SpO2: 93% 93% 94% 99% Weight: Height: Gen: alert and oriented x 4; no apparent distress Pulm: CTA b/l; tracheostomy in place with minimal secretions; no swelling, bleeding/drainage, or erythema around trach Cardio: RRR, S1, S2 normal, no murmurs Extremities: mild BLE edema LABS/IMAGING - reviewed, pertinent results as below: INR 2.0 > 2.5 PTT 78 ASSESSMENT/PLAN: Vinnie Aguilera is a 43 year old female who was admitted to the hospital with: Bilateral PE Calcified nodules in R atrium x2 Patient on warfarin bridge, at target INR of 2-3, pharmacy following. Consider outpatient hypercoagulability work-up given patient's family history. - warfarin 12.5mg QD - will d/c heparin drip - following pharm recs on warfarin dosing - INR daily Acute on chronic hypercapnic and hypoxic respiratory failure 2/2 acute HFpEF exacerbation and untreated ETIENNE/OHS, s/p tracheostomy placement Morbid obesity PFTs w/ restrictive pattern HFpEF HTN HLD Prolonged QTc - continue bumex, metoprolol - EKG QD - wean O2 as tolerated - pulmonary clearance: hypersal Q6H, duonebs Q6H, vest therapy TID, suctioning PRN - RT providing trach education and oxygen wean Anxiety Insomnia THC use disorder - clonazepam 0.5mg QD - ramelteon 8mg QHS Sacral pressure ulcers - MVI - antibiotic ointment DUKE GERD Menorrhagia Patient reports intermittent vaginal bleeding, in small amounts. Her Hb is at baseline, consistentlyin the 9s. Nuclear Instructor is following. As per their recs, patient bleeding is expected due to heparin drip andis not at risk for acute blood loss due to mild intermittent bleeding. No intervention will be done at this time. - Nuclear Instructor recs appreciated - f/u coding specialist clinic for Depo shot in 3 months until IUD placement, Pap smear Discharge planning needs: - casebook for EGD - protonix BID Disposition Anticipated Discharge Date : 1-2 days Barriers to Discharge: Awaiting placement to SNF Lisa Gonzalez M.D. Department of Internal Medicine PGY-1, [facility] Team Doctor's Number: [id number] Pager: [phone] END OF DAILY PROGRESS NOTE Hospital Course: Vinnie Aguilera is a 43 y/o female with PMH significant for morbid obesity, ETIENNE/OHS (noncompliants with BiPAP), severe pHTN, PFTs w/ restrictive pattern (2013), chronic hypoxic respiratory failure(3-4L intermittent home O2), HFpEF, HTN, DUKE, menorrhagia, and tobacco and THC use, who was admittedto the MICU for acute on chronic hypoxic and hypercapnic respiratory failure requiring intubation. In the MICU, she was aggressively diuresed for her acute on chronic HFpEF and completed a course of empiric antibiotics (vanc/meropenem, de- escalated to Unasyn) for aspiration PNA. Despite these interventions, she failed SBT x2 and required tracheostomy placement by ENT on 10/04/19. GI was consulted forpersistent fevers and RUQ u/s with possible dilation of common bile duct. GI thought patient's fevers were less likely from biliary source given patient's normal LFTs and HIDA scan was negative for acute cholecystitis/biliary obstruction. ID was consulted for sputum cultures positive for Citrobacter ko seri. ID suspected patient's fevers were 2/2 hypersensitivity reaction 2/2 beta lactams, so antibiotics were discontinued and patient's fevers resolved. Patient's tracheostomy was downsized on 10/22/19and she was transferred to the floor once she was tolerating trach trials. Upon transfer to the floor, patient was persistently tachycardic so CT PE was performed and showed bilateral PEs and RA masses(later characterized as an Eustachian valve on SHAD), and she was subsequently started on heparin drip. Patient was bridged from heparin to warfarin. She is now on warfarin 12.5 mg qd and within INR target goal. She is pending dispo placement prior to discharge. Associated attestation - Gillian Red MD - 11/14/2019 10:02 PM CDTI personally examined the patient on 11/14/[address] Gonzalez's resident note with the following addition(s): patient with significant anxiety, will add paroxetine for her anxiety and repeat EKG in a few days . I actively participated in the decision-making process. Please see the resident's note for additional details. Gillian Red MD 11/14/2019 10:02 PM Lisa Gonzalez MD - 11/13/2019 7:59 AM CDT PGY-1 [facility] Team Progress Note Date of Service: 11/13/2019 07:59 Date of Admission: 09/20/2019 Chief Complaint: dyspnea 24-HOUR EVENTS: No acute events overnight. SUBJECTIVE: Patient seen and examined at bedside. Pt complains of some SOB overnight and a headache that startedat 3 am, mildly improved with Tylenol. As per RT, she had moved her trach collar and had a plugged. She was satting in the 80s, and after suction she's satting back in the 90s. ROS + for headache, pruritis, - for cp, fever, chills, n/v/d PHYSICAL EXAM: Vitals: 11/12/19 2320 11/13/19 0006 11/13/19 0312 11/13/19 0731 BP: 105/70 138/82 BP Location: Right arm Right leg Patient Position: Pulse: 99 95 96 106 Resp: 18 18 18 Temp: 36.3 C (97.3 F) 36.7 C (98 F) TempSrc: Oral Oral SpO2: 95% 96% 97% 90% Weight: Height: Gen: alert and oriented x 4; no apparent distress, receiving breathing treatments Pulm: CTA b/l; tracheostomy in place with minimal secretions; no swelling, bleeding/drainage, or erythema around trach Cardio: RRR, S1, S2 normal, no murmurs Extremities: mild BLE edema LABS/IMAGING - reviewed, pertinent results as below: INR 1.8 > 2.0 today PTT 65 ASSESSMENT/PLAN: Vinnie Aguilera is a 43 year old female who was admitted to the hospital with: Bilateral PE Calcified nodules in R atrium x2 Patient on warfarin bridge, at target INR of 2-3, pharmacy following. Consider outpatient hypercoagulability work-up given patient's family history. - warfarin 12.5mg QD + 2.5 mg one time dose today - started on heparin drip - following pharm recs on warfarin dosing - INR daily Acute on chronic hypercapnic and hypoxic respiratory failure 2/2 acute HFpEF exacerbation and untreated ETIENNE/OHS, s/p tracheostomy placement Morbid obesity PFTs w/ restrictive pattern HFpEF HTN HLD Prolonged QTc - continue bumex, metoprolol - EKG QD - wean O2 as tolerated - pulmonary clearance: hypersal Q6H, duonebs Q6H, vest therapy TID, suctioning PRN - RT providing trach education and oxygen wean Anxiety Insomnia THC use disorder - clonazepam 0.5mg QD - ramelteon 8mg QHS Sacral pressure ulcers - MVI - antibiotic ointment DUKE GERD Menorrhagia Discharge planning needs: - casebook for EGD - coding specialist clinic f/u for Depo shot [id number] until IUD placement, Pap smear - protonix BID Disposition Anticipated Discharge Date : 1-2 days Barriers to Discharge: Awaiting placement to [facility] Lisa Gonzalez M.D. Department of Internal Medicine PGY-1, Adebayo Team Doctor's Number: [id number] Pager: [phone] END OF DAILY PROGRESS NOTE Hospital Course: Vinnie Aguilera is a 43 y/o female with PMH significant for morbid obesity, ETIENNE/OHS (noncompliants with BiPAP), severe pHTN, PFTs w/ restrictive pattern (2013), chronic hypoxic respiratory failure(3-4L intermittent home O2), HFpEF, HTN, DUKE, menorrhagia, and tobacco and THC use, who was admittedto the MICU for acute on chronic hypoxic and hypercapnic respiratory failure requiring intubation. In the MICU, she was aggressively diuresed for her acute on chronic HFpEF and completed a course of empiric antibiotics (vanc/meropenem, de- escalated to Unasyn) for aspiration PNA. Despite these interventions, she failed SBT x2 and required tracheostomy placement by ENT on 10/04/19. GI was consulted forpersistent fevers and RUQ u/s with possible dilation of common bile duct. GI thought patient's fevers were less likely from biliary source given patient's normal LFTs and HIDA scan was negative for acute cholecystitis/biliary obstruction. ID was consulted for sputum cultures positive for Citrobacter ko seri. ID suspected patient's fevers were 2/2 hypersensitivity reaction 2/2 beta lactams, so antibiotics were discontinued and patient's fevers resolved. Patient's tracheostomy was downsized on 10/22/19and she was transferred to the floor once she was tolerating trach trials. Upon transfer to the floor, patient was persistently tachycardic so CT PE was performed and showed bilateral PEs and RA masses(later characterized as an Eustachian valve on SHAD), and she was subsequently started on heparin drip. Patient was bridged from heparin to warfarin. She is now on warfarin 12.5 mg qd and within INR target goal. She is pending dispo placement prior to discharge. Associated attestation - Gillian Red MD - 11/14/2019 6:39 AM CDTI personally examined the patient on 11/13/[address] gonzalez's resident note with the following addition(s): patient reports persistent vaginal bleeding today, will have machine shop helper reevaluate her. I actively participated in the decision-making process. Please see the resident's note for additional details. Gillian Red MD 11/14/2019 6:39 AM Bar Marquez, [facility] - 11/13/2019 5:43 AM CDTPharmacy Note for Warfarin Monitoring Pharmacy to monitor warfarin dosing for patient Vinnie Aguilera, [id number]. Indication: bilateral pulmonary emboli (CTA of the chest on 10/29/19) Goal INR: 2-3 Warfarin dosage prior to admission: none; warfarin initiated this hospitalization on 10/31/19 Most recent INR: 2.0 this morning Current warfarin dosage: 12.5 mg daily at 1700 Date INR Warfarin dose received 10/31/19 1.0 5 mg 11/01/19 1.0 5 mg 11/02/19 1.0 7.5 mg 11/03/19 1.0 10 mg (7.5 mg + 2.5 mg) 11/04/19 1.0 10 mg 11/05/19 1.3 10 mg 11/06/19 1.4 12.5 mg (10 mg + 2.5 mg) 11/07/19 1.7 10 mg 11/08/19 1.7 12.5 mg 11/09/19 1.8 12.5 mg 11/10/19 1.9 12.5 mg 11/11/19 2.0 12.5 mg 11/12/19 1.8 15 mg (12.5 mg + 2.5 mg) 11/13/19 2.0 Bridging anticoagulation: continuous infusion of heparin (restarted 11/12/19 due to INR of 1.8 on 11/12/19) Assessment and Recommendations: 1. Ms. Aguilera's INR increased from 1.8 yesterday to 2.0 today after receiving an extra 2.5-mg dose of warfarin yesterday. Her INR had decreased from 2.0 two days ago on 11/11/19 to 1.8 yesterday after her heparin drip was discontinued on 11/11/19. Therefore, I would recommend entering an order for warfarin 2.5 mg ONCE at 1700 today, 11/13/19, in addition to the already scheduled 12.5-mg dose of warfarin for today, for a total of 15 mg of warfarin at 1700 today, 11/13/19, to increase the likelihood Ms. Aguilera's INR remains 2.0 or greater when the heparin drip is discontinued this time. 2. Please continue to check Ms. Aguilera's INR daily. I will continue to follow the patient. Page me with any questions. Bar Marquez (Eddie), Pharm.D., [facility] Pager: [phone] signed by Bar Marquez [facility] at 11/13/2019 5:46 AM Danielle Santillan RN - 11/12/2019 10:30 AM CDTCM sent out mass referral for [facility] for the following- ? [facility] ? [place] ? [place] ? [facility] ? [place] [facility] [place] ? [facility] ? [facility] ? [place] ? [place] ? [place] [facility] [address] ? [place] ? [facility] ? [place] [place] ? [facility] [place] ? [place] ? [address]- denied ? [facility]- denied ? [facility]- admissions on hold ? [facility]- reviewing o Update 11/11 1045- requested covid testing Danielle Hanks (Allie) RN-BSN Revenue Accountant [facility] Care Management (not for patient use) Office: [phone] [email or web address] Beatrice Newman PT - 11/12/2019 8:26 AM CDTPhysical Therapy Note: PT adding new goals: 4. Pt will be modified independent with wheelchair mobility and management. Beatrice Bansal, PT, DPT Pager [phone] Lisa Gonzalez MD - 11/12/2019 7:10 AM CDT PGY-1 Adebayo Team Progress Note Date of Service: 11/12/2019 07:10 Date of Admission: 09/20/2019 Chief Complaint: dyspnea 24-HOUR EVENTS: No acute events overnight. SUBJECTIVE: Patient seen and examined at bedside. She has no complaints and states she is feeling well and "ready to get started" in regards to walking and managing her trach. She denies any SOB, chest pain, fevers, chills, n/v/d. ROS as above. PHYSICAL EXAM: Vitals: 11/11/19 2337 11/11/19 2340 11/11/19 2350 11/12/19 0402 BP: 121/87 114/78 BP Location: Left arm Patient Position: Sitting Sitting Pulse: 97 93 97 96 Resp: Temp: 37.1 C (98.8 F) 37.2 C (98.9 F) TempSrc: Oral Oral SpO2: 92% 91% 94% 96% Weight: Height: General: alert and oriented x 4; no apparent distress Lungs: clear to auscultation bilaterally; tracheostomy in place with minimal secretions; no swelling, bleeding/drainage, or erythema around trach Cardio: S1, S2 normal; no murmurs, rubs or gallops, regular rate and rhythm Abdomen: soft; non-tender; non-distended; normoactive bowel sounds Extremities: minimal BLE edema LABS/IMAGING - reviewed, pertinent results as below: INR 1.8 ASSESSMENT/PLAN: Vinnie Aguilera is a 43 year old female who was admitted to the hospital with: Bilateral PE Calcified nodules in R atrium x2 Patient on warfarin bridge, at target INR of 2-3, pharmacy following. Consider outpatient hypercoagulability work-up given patient's family history. - warfarin 12.5mg QD + 2.5 mg one time dose today - following pharm recs on warfarin dosing - INR daily Acute on chronic hypercapnic and hypoxic respiratory failure 2/2 acute HFpEF exacerbation and untreated ETIENNE/OHS, s/p tracheostomy placement Morbid obesity PFTs w/ restrictive pattern HFpEF HTN HLD Prolonged QTc - continue bumex, metoprolol - EKG QD - wean O2 as tolerated - pulmonary clearance: hypersal Q6H, duonebs Q6H, vest therapy TID, suctioning PRN - RT providing trach education and oxygen wean Anxiety Insomnia THC use disorder - clonazepam 0.5mg QD - ramelteon 8mg QHS Sacral pressure ulcers - MVI - antibiotic ointment DUKE GERD Menorrhagia Discharge planning needs: - casebook for EGD - coding specialist clinic f/u for Depo shot [id number] until IUD placement, Pap smear - protonix BID Disposition Anticipated Discharge Date : 1-2 days Barriers to Discharge: Awaiting placement to SNF Lisa Gonzalez M.D. Department of Internal Medicine PGY-1, [facility] Team Doctor's Number: [id number] Pager: [phone] END OF DAILY PROGRESS NOTE Hospital Course: Vinnie Aguilera is a 43 y/o female with PMH significant for morbid obesity, ETIENNE/OHS (noncompliants with BiPAP), severe pHTN, PFTs w/ restrictive pattern (2013), chronic hypoxic respiratory failure(3-4L intermittent home O2), HFpEF, HTN, DUKE, menorrhagia, and tobacco and THC use, who was admittedto the MICU for acute on chronic hypoxic and hypercapnic respiratory failure requiring intubation. In the MICU, she was aggressively diuresed for her acute on chronic HFpEF and completed a course of empiric antibiotics (vanc/meropenem, de- escalated to Unasyn) for aspiration PNA. Despite these interventions, she failed SBT x2 and required tracheostomy placement by ENT on 10/04/19. GI was consulted forpersistent fevers and RUQ u/s with possible dilation of common bile duct. GI thought patient's fevers were less likely from biliary source given patient's normal LFTs and HIDA scan was negative for acute cholecystitis/biliary obstruction. ID was consulted for sputum cultures positive for Citrobacter ko seri. ID suspected patient's fevers were 2/2 hypersensitivity reaction 2/2 beta lactams, so antibiotics were discontinued and patient's fevers resolved. Patient's tracheostomy was downsized on 10/22/19and she was transferred to the floor once she was tolerating trach trials. Upon transfer to the floor, patient was persistently tachycardic so CT PE was performed and showed bilateral PEs and RA masses(later characterized as an Eustachian valve on SHAD), and she was subsequently started on heparin drip. Patient was bridged from heparin to warfarin. She is now on warfarin 12.5 mg qd and within INR target goal. She is pending dispo placement prior to discharge. Associated attestation - Gillian Red MD - 11/12/2019 8:27 PM CDTI personally examined the patient on 11/12/[address] Gonzalez's resident note with the following addition(s): working on [facility] for SNF, will need to update pictures of her wounds . I actively participated in the decision-making process. Please see the resident's note for additional details. Gillian Red MD 11/12/2019 8:27 PM Bar Marquez [facility] - 11/12/2019 6:02 AM CDTPharmacy Note for Warfarin Monitoring Pharmacy to monitor warfarin dosing for patient Vinnie Aguilera, [id number]. Indication: bilateral pulmonary emboli (CTA of the chest on 10/29/19) Goal INR: 2-3 Warfarin dosage prior to admission: none; warfarin initiated this hospitalization on 10/31/19 Most recent INR: 1.8 this morning Current warfarin dosage: 12.5 mg daily at 1700 Date INR Warfarin dose received 10/31/19 1.0 5 mg 11/01/19 1.0 5 mg 11/02/19 1.0 7.5 mg 11/03/19 1.0 10 mg (7.5 mg + 2.5 mg) 11/04/19 1.0 10 mg 11/05/19 1.3 10 mg 11/06/19 1.4 12.5 mg (10 mg + 2.5 mg) 11/07/19 1.7 10 mg 11/08/19 1.7 12.5 mg 11/09/19 1.8 12.5 mg 11/10/19 1.9 12.5 mg 11/11/19 2.0 12.5 mg 11/12/19 1.8 Assessment and Recommendations: 1. After Ms. Aguilera's INR had steadily increased daily for the past several days, her INR decreased from 2.0 yesterday to 1.8 today. Therefore, I would recommend entering an order for warfarin 2.5 mg ONCE at 1700 today, 11/12/19, in addition to the already scheduled 12.5-mg dose of warfarin for today,for a total of 15 mg of warfarin at 1700 today, 11/12/19. 2. Ms. Aguilera's bilateral pulmonary emboli were diagnosed two weeks ago. Now that her INR is 1.8 today, I would consider restarting a continuous infusion of heparin. If heparin is restarted today, I would recommend an initial infusion rate of 2300 units/hour since Ms. Aguilera's aPTT was consistently in the therapeutic range on 2300 units of heparin per hour previously. I will continue to follow the patient. Page me with any questions. Bar Marquez (Eddie), Pharm.D., [facility] Pager: [phone] signed by Bar Marquez [facility] at 11/12/2019 6:04 AM Danielle Santillan RN - 11/11/2019 4:50 PM CDTCM was contacted by Dr. Red regarding discharge plans for patient. Dr. Red was wanting LOAfor SNF placement since patient is requiring a large amount of help with transferring and now patient is concerned with lack of support at home. 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 ISABEL submitted ELISHA to management and ELISHA SNF referrals sent to the following- Melissa Carmichael ([address] [place] [id number], , ) - reviewing [facility]- no [facility]- no response [facility] no response [facility] ([address], [place] [address] ) - admissions on [facility] ([address] [place] [address], , F: [phone]) reviewing Danielle Sparks (Allie)ger, RN-BSN Revenue Accountant [facility] Care Management (not for patient use) Office: [phone] [email or web address] Verenice Barakat PTA - 11/11/2019 10:39 AM CDT Physical Therapy Progress Note: Discharge Recommendations: Patient would benefit from continued physical therapy services to address: decline in bed mobility decline in transfers decline in gait and/or balance decreased strength decreased range of motion decreased endurance Challenges to Home Transition: increased risk of falls decreased caregiver availability decreased safety awareness Environmental barriers Equipment recommendations: Bariatric wheelchair, hospital bed and mechanical lift PAIN: denies pain PRECAUTIONS: Weight Bearing Precaution: WBAT General Precautions: PPE used:Gloves and Surgical mask, General, Fall, IV x 1, oxygen: Trach collar Bracing/Cast present or required:N/A S: Patient agreeable to working with PT. Pt reports she needs to use the [facility]. O: Patient met Semi reclined in bed. Patient seen for the following: Bed mobility: Rolling: Maximal assist, with use of bed rails facilitated flexing opposite knee to assist with rolling Transfers: vanessa lift transfer bed <-> BSC x 2 person assist incorporated B hip flexion to assist with securing leg pieces onto lift Therapeutic exercise: patient educated in Adaptive equipment , Compensatory techniques/adaptive strategies, Energy conservation, Fall prevention, General strengthening, Positioning, Relaxation/breathing techniques and Safety awareness., instructed patient in the following: ankle pumps, quad sets, glut sets, heel slides,hip abduction/adduction, hip internal/external rotation, straight leg raises educated pt on the importance of performing BLE exercises After session, patient Semi reclined in bed and call fields provided. A: Patient tolerated session fair. Patient progressing toward goals slowly. P: PT will - progress functional mobility. Total Timed Tx Codes in Minutes: 69 Min Total Treatment Time in Minutes: 69 Min Verenice Barakat PTA Pager # [phone] Supervising PT Beatrice Bansal Thania Sidhu OTA - 11/11/2019 10:07 AM CDTOCCUPATIONAL THERAPY NOTE: Discharge Recommendations: Therapy Needs and Potential:- Patient would benefit from continued skilled occupational therapy services to address:Decline in basic activities of daily living, Decline in instrumental activities of daily living, Decreased strength, Decreased range of motion, Decreased endurance and Caregiver training - Patient demonstrates good potential to improve and meet therapy goals with further skilled occupational therapy services. - Patient appears motivated to improve their B/IADLs and return to their previous level of function. Challenges to Home Transition:- Requires physical assistance for BADLS - Requires physical assistance for IADLS - Increased risk of falls - Environmental barriers Equipment Recommendations:bariatric BSC, WC, Hospital Bed, and Vanessa Lift Precautions: WB: NA General: PPE Utilized: Gloves and Surgical mask, Fall, Morbid obesity and aerosol trach Bracing: N/A S: Patient agreeable to participate in occupational therapy. patient stated that she needed to sit on BSC for BM. PAIN Patient denied pain this session. O: Patient found semireclining in bed. Patient seen this date for the following: ADL Training Patient is maximal assist for all transitional movements due to her size. Patient is able to rollfrom side to side, however, max assist to roll torso due to obesity Grooming: SBA/Setup UB Dressing: Moderate assist sohail to morbid obesity and difficulty maneuvering in bed Toilet Transfer: Dependent using vanessa lift Toileting Hygiene: Dependent. Patient educated about fall prevention and safety awareness. GOLDBERG observed and analyzed patient's body mechanics thru out session, especially during transitional movements and ADL mobility and offered recommendations to improve techniques to reduce patient's fall risk and increase patient's overall safety during ADLs. Therapeutic Exercise/Procedure Patient seen for Towel/dowel: Patient performed Shoulder flexion/extension, Shoulder abduction/adduction, Elbow flexion/extension and Wrist flexion/extension, Patient completed 2 sets of 10 reps, Patient required tactile and/or verbal cueing to perform exercises with correct technique Patient/caregiver returns demonstration x 10 repetitions as follows: Tactile and verbal cues provided for correct technique. Neuromuscular Re-Education Patient sustains dynamic sitting balance x 15 minutes with fluctuating levels of CGA. Patient performs the following sitting balance activities: Facilitated trunk leaning in all planes to target postural control. To assist with toilet hygiene Patient left semireclining in bed with call fields in reach. all needs met and resting comfortably. A: Patient exhibited Fair participation in therapy and responded well to treatment this session. Patient is progressing toward goal(s) 1, 2, 4, 5, 6 and 7. Poor endurance, Poor motivation and morbid obesity remain(s) a limiting factor. P: Daily living activities, Therapeutic exercises and Neuromuscular Re-Education to maximize patient's safety and independence with BADLs. ASHLYN Bautista Pager [phone] Supervising OTR: Charlotte Kim Total Timed Treatment Codes: 69 Min Total Treatment Time: 69 Min Lisa Florez MD - 11/11/2019 7:07 AM CDT PGY-1 A[facility] Team Progress Note Date of Service: 11/11/2019 07:07 Date of Admission: 09/20/2019 Chief Complaint: dyspnea 24-HOUR EVENTS: No acute events overnight. SUBJECTIVE: Patient seen and examined at bedside. This morning, patient states she had some shortness of breath around 3 am, but resolved with O2 treatments. She complaints of numbness/tingling of her left index and middle fingers, which she attributes to her carpal tunnel. Otherwise, ROS was negative and patienthas no complaints. PHYSICAL EXAM: Vitals: 11/10/19 2358 11/10/19 2359 11/11/19 0009 11/11/19 0400 BP: 122/71 BP Location: Patient Position: Pulse: 97 92 90 89 Resp: 18 18 18 18 Temp: 37 C (98.6 F) TempSrc: Oral SpO2: 99% 99% 97% 98% Weight: Height: General: alert and oriented x 4; no apparent distress Lungs: clear to auscultation bilaterally; tracheostomy in place with minimal secretions; no swelling, bleeding/drainage, or erythema around tracheosotmy Cardio: S1, S2 normal; no murmurs, rubs or gallops, regular rate and rhythm Abdomen: soft; non-tender; non-distended; normoactive bowel sounds Extremities: no BLE edema LABS/IMAGING - reviewed, pertinent results as below: INR 2.0 ASSESSMENT/PLAN: Vinnie Aguilera is a 43 year old female who was admitted to the hospital with: Bilateral PE Calcified nodules in R atrium x2 Patient on warfarin bridge, at target INR of 2-3, pharmacy following. Consider outpatient hypercoagulability work-up given patient's family history. - warfarin 12.5mg QD - INR daily Acute on chronic hypercapnic and hypoxic respiratory failure 2/2 acute HFpEF exacerbation and untreated ETIENNE/OHS, s/p tracheostomy placement Morbid obesity PFTs w/ restrictive pattern HFpEF HTN HLD Prolonged QTc - continue bumex, metoprolol - EKG QD - wean O2 as tolerated - pulmonary clearance: hypersal Q6H, duonebs Q6H, vest therapy TID, suctioning PRN - spoke with RT, they will provide trach suction education and will begin to wean trach O2 requirements Anxiety Insomnia THC use disorder - clonazepam 0.5mg QD (will attempt to wean off) - ramelteon 8mg QHS Sacral pressure ulcers - MVI - antibiotic ointment DUKE GERD Menorrhagia Discharge planning needs: - casebook for EGD - coding specialist clinic f/u for Depo shot [id number] until IUD placement, Pap smear - protonix BID Disposition Anticipated Discharge Date : 1-2 days Barriers to Discharge: patient placement Lisa Gonzalez M.D. Department of Internal Medicine PGY-1, [facility]o Team Doctor's Number: [id number] Pager: [phone] END OF DAILY PROGRESS NOTE Hospital Course: Vinnie Aguilera is a 43 y/o female with PMH significant for morbid obesity, ETIENNE/OHS (noncompliants with BiPAP), severe pHTN, PFTs w/ restrictive pattern (2013), chronic hypoxic respiratory failure(3-4L intermittent home O2), HFpEF, HTN, DUKE, menorrhagia, and tobacco and THC use, who was admittedto the MICU for acute on chronic hypoxic and hypercapnic respiratory failure requiring intubation. In the MICU, she was aggressively diuresed for her acute on chronic HFpEF and completed a course of empiric antibiotics (vanc/meropenem, de- escalated to Unasyn) for aspiration PNA. Despite these interventions, she failed SBT x2 and required tracheostomy placement by ENT on 10/04/19. GI was consulted forpersistent fevers and RUQ u/s with possible dilation of common bile duct. GI thought patient's fevers were less likely from biliary source given patient's normal LFTs and HIDA scan was negative for acute cholecystitis/biliary obstruction. ID was consulted for sputum cultures positive for Citrobacter ko seri. ID suspected patient's fevers were 2/2 hypersensitivity reaction 2/2 beta lactams, so antibiotics were discontinued and patient's fevers resolved. Patient's tracheostomy was downsized on 10/22/19and she was transferred to the floor once she was tolerating trach trials. Upon transfer to the floor, patient was persistently tachycardic so CT PE was performed and showed bilateral PEs and RA masses(later characterized as an Eustachian valve on SHAD), and she was subsequently started on heparin drip. Patient was bridged from heparin to warfarin. She is now on warfarin 12.5 mg qd and within INR target goal. She is pending dispo placement prior to discharge. Associated attestation - Gillian Red MD - 11/11/2019 4:03 PM CDTI personally examined the patient on 11/11/[address] Gonzalez's resident note with the following addition(s): working with CM on safe discharge plan . I actively participated in the decision-making process. Please see the resident's note for additional details. Gillian Red MD 11/11/2019 4:03 PM Bar Marquez RPH - 11/11/2019 6:47 AM CDTPharmacy Note for Warfarin Monitoring Pharmacy to monitor warfarin dosing for patient Vinnie Green Baugh, [id number]. Indication: bilateral pulmonary emboli (CTA of the chest on 10/29/19) Goal INR: 2-3 Warfarin dosage prior to admission: none; warfarin initiated this hospitalization on 10/31/19 Most recent INR: 2.0 this morning Current warfarin dosage: 12.5 mg daily at 1700 Date INR Warfarin dose received 10/31/19 1.0 5 mg 11/01/19 1.0 5 mg 11/02/19 1.0 7.5 mg 11/03/19 1.0 10 mg (7.5 mg + 2.5 mg) 11/04/19 1.0 10 mg 11/05/19 1.3 10 mg 11/06/19 1.4 12.5 mg (10 mg + 2.5 mg) 11/07/19 1.7 10 mg 11/08/19 1.7 12.5 mg 11/09/19 1.8 12.5 mg 11/10/19 1.9 12.5 mg 11/11/19 2.0 Bridging anticoagulation: continuous infusion of heparin (initiated on 10/29/19) Assessment and Recommendations: 1. Ms. Aguilera's INR was 1.9 yesterday and is 2.0 today. I would recommend continuing warfarin 12.5 mg daily at 1700 as currently ordered for today, 11/11/19. 2. Please continue to check Ms. Aguilera's INR daily. I will continue to follow the patient. Page me with any questions. Bar Marquez (Eddie), Pharm.D., [facility] Pager: [phone] signed by Bar Marquez [facility] at 11/11/2019 6:48 AM JOSE EDUARDOTBrenda Romero DO - 11/10/2019 8:06 AM CDT PGY-1 [facility] Team Progress Note Date of Service: 11/10/2019 08:07 Date of Admission: 09/20/2019 Chief Complaint: dyspnea 24-HOUR EVENTS: No acute events overnight. SUBJECTIVE: Patient resting comfortably in bed, was able to get out of bed and into the recliner for a few hoursyesterday, denies any acute symptoms. PHYSICAL EXAM: Vitals: 11/09/196 11/10/19 0052 11/10/19 0112 11/10/19 0739 BP: (!) 149/83 (!) 142/74 (!) 140/89 BP Location: Right leg Right leg Patient Position: Sitting Pulse: 78 104 Resp: 18 18 20 18 Temp: 37 C (98.6 F) 37 C (98.6 F) 36.7 C (98.1 F) TempSrc: Oral Oral Skin SpO2: 95% 97% Weight: Height: General: alert and oriented x 4 (person, place, date/time and situation); no apparent distress Lungs: clear to auscultation bilaterally; tracheostomy in place with minimal secretions; no swelling, bleeding/drainage, or erythema around tracheosotmy Cardio: S1, S2 normal; no murmurs, rubs or gallops, regular rate and rhythm Abdomen: soft; non-tender; non-distended; normoactive bowel sounds Extremities: no BLE edema LABS/IMAGING - reviewed, pertinent results as below: INR 1.9 ASSESSMENT/PLAN: Vinnie Aguilera is a 43 year old female who was admitted to the hospital with: Bilateral PE Calcified nodules in R atrium x2 Bridging from heparin gtt to warfarin, with goal INR 2-3, pharmacy following. Consider outpatient hypercoagulability work-up given patient's family history. - heparin gtt - warfarin 12.5mg QD Acute on chronic hypercapnic and hypoxic respiratory failure 2/2 acute HFpEF exacerbation and untreated ETIENNE/OHS, s/p tracheostomy placement Morbid obesity PFTs w/ restrictive pattern HFpEF HTN HLD Prolonged QTc - continue bumex, metoprolol - EKG QD - wean O2 as tolerated - pulmonary clearance: hypersal Q6H, duonebs Q6H, vest therapy TID, suctioning PRN - RT to provide education on tracheostomy care Anxiety Insomnia THC use disorder - clonazepam 0.5mg BID - ramelteon 8mg QHS Sacral pressure ulcers - MVI - antibiotic ointment DUKE GERD Menorrhagia Discharge planning needs: - casebook for EGD - coding specialist clinic f/u for Depo shot [id number] until IUD placement, Pap smear - protonix BID Disposition Anticipated Discharge Date : 2-3 days Barriers to Discharge: therapeutic INR levels, patient placement Brenda Romero DO Internal Medicine, PGY1 [facility] Team Pager# [phone] END OF DAILY PROGRESS NOTE Hospital Course: Vinnie Aguilera is a 43 y/o female with PMH significant for morbid obesity, ETIENNE/OHS (noncompliants with BiPAP), severe pHTN, PFTs w/ restrictive pattern (2013), chronic hypoxic respiratory failure(3-4L intermittent home O2), HFpEF, HTN, DUKE, menorrhagia, and tobacco and THC use, who was admittedto the MICU for acute on chronic hypoxic and hypercapnic respiratory failure requiring intubation. In the MICU, she was aggressively diuresed for her acute on chronic HFpEF and completed a course of empiric antibiotics (vanc/meropenem, de- escalated to Unasyn) for aspiration PNA. Despite these interventions, she failed SBT x2 and required tracheostomy placement by ENT on 10/04/19. GI was consulted forpersistent fevers and RUQ u/s with possible dilation of common bile duct. GI thought patient's fevers were less likely from biliary source given patient's normal LFTs and HIDA scan was negative for acute cholecystitis/biliary obstruction. ID was consulted for sputum cultures positive for Citrobacter ko seri. ID suspected patient's fevers were 2/2 hypersensitivity reaction 2/2 beta lactams, so antibiotics were discontinued and patient's fevers resolved. Patient's tracheostomy was downsized on 10/22/19and she was transferred to the floor once she was tolerating trach trials. Upon transfer to the floor, patient was persistently tachycardic so CT PE was performed and showed bilateral PEs and RA masses(later characterized as an Eustachian valve on SHAD), and she was subsequently started on heparin drip. Patient was bridged from heparin to warfarin. Associated attestation - Gillian Red MD - 11/11/2019 9:22 AM CDTI personally examined the patient on 11/10/[address] Romero's resident note with the following addition(s): I will d/w case management today about discharge plans. I actively participated in the decision-making process. Please see the resident's note for additional details. Gillian Red MD 11/11/2019 9:22 AM Bar Marquez RPH - 11/10/2019 7:37 AM CDTPharmacy Note for Warfarin Monitoring Pharmacy to monitor warfarin dosing for patient Vinnie Aguilera, [id number]. Indication: bilateral pulmonary emboli (CTA of the chest on 10/29/19) Goal INR: 2-3 Warfarin dosage prior to admission: none; warfarin initiated this hospitalization on 10/31/19 Most recent INR: 1.9 this morning Current warfarin dosage: 12.5 mg daily at 1700 Date INR Warfarin dose received 10/31/19 1.0 5 mg 11/01/19 1.0 5 mg 11/02/19 1.0 7.5 mg 11/03/19 1.0 10 mg (7.5 mg + 2.5 mg) 11/04/19 1.0 10 mg 11/05/19 1.3 10 mg 11/06/19 1.4 12.5 mg (10 mg + 2.5 mg) 11/07/19 1.7 10 mg 11/08/19 1.7 12.5 mg 11/09/19 1.8 12.5 mg 11/10/19 1.9 Bridging anticoagulation: continuous infusion of heparin (initiated on 10/29/19) Assessment and Recommendations: 1. Ms. Aguilera's INR increased from 1.8 yesterday to 1.9 today after receiving warfarin 12.5 mg dailythe past two days. Therefore, I would recommend continuing warfarin 12.5 mg daily at 1700 as currently ordered for today, 11/10/19. 2. Please continue to check Ms. Aguilera's INR daily. I will continue to follow the patient. Page me with any questions. Bar Marquez (Eddie), Pharm.D., [facility] Pager: [phone] signed by Bar Marquez [facility] at 11/10/2019 7:38 AM Flakito Stahl MD - 11/09/2019 8:23 AM CDT Adebayo Team Progress Note Date of Service: 11/09/2019 08:23 Date of Admission: 09/20/2019 Chief Complaint: dyspnea 24-HOUR EVENTS: - no acute events overnight SUBJECTIVE: Still complains of the abundance of secretions as well as back pain. PHYSICAL EXAM: Vitals: 11/09/19 0402 11/09/19 0701 11/09/19 0709 11/09/19 0727 BP: (!) 145/70 129/71 BP Location: Right leg Patient Position: Supine Pulse: 79 79 79 103 Resp: 18 16 16 18 Temp: 37 C (98.6 F) 36.3 C (97.4 F) TempSrc: Oral Oral SpO2: 98% 98% 97% 90% Weight: Height: General: alert and oriented x 4 (person, place, date/time and situation); no significant distress Lungs: upper airway transmitted sounds over anterior lung hirsch, tracheostomy in place with secretions out of trach. Cardio: S1, S2 normal; no murmurs, rubs or gallops, regular rate and rhythm Abdomen: soft; non-tender; obese; normoactive bowel sounds Extremities: no clubbing, cyanosis, or edema. LABS/IMAGING - reviewed, pertinent results as below: lNR 1.8 ASSESSMENT/PLAN Vinnie Aguilera is a 43 year old female who was admitted to the hospital with: Bilateral pulmonary emboli Calcified nodules in R atrium x2 CT PE significant for bilateral pulmonary emboli and possible thrombi in right ventricle, patient started on heparin drip and bridging to warfarin. TTE showed 2 mobile masses that appeared calcified. Masses further characterized by SHAD to be Eustachian valves. - On heparin drip, coumadin started with goal 2-3 - EKG QAM - Consider hypercoagulability panel OP given + FHx Chest Pain, resolved Has no further episodes of chest pain. Troponin negative, EKG remain unchanged. - Heparin Drip and Coumadin 12.5 HTN Anxiety Insomnia - Clonazepam to 0.5 BID - continue with Ramelteon - Metoprolol 12.5mg bid Sacral pressure ulcers POA Sedentary patient 2/2 morbid obesity. Wound care following. - Polymixin zinc compound DUKE GERD Menoorrhagia Normal barium swallow, GI signed off, to follow-up in GI clinic in 4-6 weeks and needs casebook request for endoscopy. Consulted Nuclear Instructor to assist with Metrorrhagia. Will need f/u OP with IUD, Pap smear. - PPI BID - Progesterone depot given. Acute on Chronic Hypercapnic Hypoxic Respiratory Failure 2/2 Acute HFpEF Exacerbation and Untreated ETIENNE/OHS s/p tracheostomy (10/03)- on 3-4L O2 at home Toxic Metabolic Encephalopathy 2/2 Profound Hypercapnia Severe Pulmonary HTN Pickwickian Syndrome Morbid Obesity PFTs w/ Restrictive Pattern, not COPD (2013) - Suction Q4H and PRN, PCT TID - c/w Hypersal TID - c/w Duonebs Q6h - c/w mucomyst - Regular diet with thin liquids Anxiety Insomnia THC Use Disorder Tobacco Use Disorder - d/c paxil - klonipin 0.5 mg BID - avoid antipsychotics as patient does have prolonged QTc - PT/OT Acute on Chronic Diastolic HF HLD Prolonged QTc - c/w Bumex PO mg Q12 H - Strict I/O - avoid QTc prolonging agents - c/w ASA daily Morbid Obesity Hirsutism Pressure Ulcers, POA - SSI Q6H - Wound care notified Disposition Anticipated Discharge Date : 7+ days Barriers to Discharge: patient placement Flakito Gallo MD PGY-1 Neurology Pager number [phone] END OF DAILY PROGRESS NOTE Hospital Course: Vinnie Aguilera is a 43 year old morbidly obese female withOSA (noncompliant with BiPAP), severe pHTN,PFTs w/restrictive pattern (2013),chronic hypoxicrespiratory failure(on home3-4L O2 intermittently),Pickwickian syndrome, HTN, CHFpEF (TTE 09/23/19), chronic DUKE, menorrhagia, and tobacco/THC use disorderwho presented with acute on chronic hypercapnic and hypoxic RF. ABGs were significant for increasing acidosis which improved once intubated in the MICU. DVT ruled out on doppler and patient had intermediate wells score, thus CT PE not obtained. Patient was diuresed aggressively in the setting of acute on chronic HFpEF. Fevers developed 36-48 hours after intubation and patient was initially started on vanc + merrem for aspiration PNA, which was then de-escalated to Unasyn. Infectious workup negative and procal WNL. CBT trial failed twice. As patient could not be weaned off vent despite aggressive diuresis and completion of abx, tracheostomy tube was placed by ENT on 10/04/19. Fevers persisted, so GI was consulted as RUQ US demonstrated possible dilation of CBD. GI suggested fever less likely related to biliary source given normal LFTs. HIDA also negative for acute cholecystit is/biliary obstruction. Patient continued to spike fevers, sputum grew citrobacter koseri and ID wasconsulted. ID suspect fevers 2/2 hypersensitivity reaction likely to beta lactams. Abx discontinued and patient remained afebrile thereafter. Patient weaned off pressors and currently on minimal sedation. Tolerating trach trials throughout the day/night and saturating well. Family care conference held, plans to d/c home with 24/ care from family members vs lyudmila placement. Patient then tolerated downsizing of trach to 6-0 shiley On TTF, patient was constantly tachycardic and anxious. CT PE showed b/l PEs, so was started on heparin drip with Coumadin bridging. Of note, The CT also showed RA masses that were later characterized as a Eustachian valve. GI consulted for severe GERD on MBS, recommended outpatient endoscopy in 4-6 weeks from discharge asbarium swallow study was normal. Consulted Nuclear Instructor for Menorrhagia, Progesterone depot given. F/u OP Placement and funding remain a barrier to discharge Associated attestation - Gillian Red MD - 11/11/2019 9:19 AM CDTI personally examined the patient on 11/09/[address] Gallo's resident note with the following addition(s): will work on d/c planning this week . I actively participated in the decision-making process. Please see the resident's note for additional details. Gillian Red MD 11/11/2019 9:19 AM Bar Marquez RP - 11/09/2019 6:32 AM CDTPharmacy Note for Warfarin Monitoring Pharmacy to monitor warfarin dosing for patient Vinnie Green Willy, [id number]. Indication: bilateral pulmonary emboli (CTA of the chest on 10/29/19) Goal INR: 2-3 Warfarin dosage prior to admission: none; warfarin initiated this hospitalization on 10/31/19 Most recent INR: 1.8 this morning Current warfarin dosage: 12.5 mg daily at 1700 Date INR Warfarin dose received 10/31/19 1.0 5 mg 11/01/19 1.0 5 mg 11/02/19 1.0 7.5 mg 11/03/19 1.0 10 mg (7.5 mg + 2.5 mg) 11/04/19 1.0 10 mg 11/05/19 1.3 10 mg 11/06/19 1.4 12.5 mg (10 mg + 2.5 mg) 11/07/19 1.7 10 mg 11/08/19 1.7 12.5 mg 11/09/19 1.8 Bridging anticoagulation: continuous infusion of heparin (initiated on 10/29/19) Assessment and Recommendations: 1. Ms. Aguilera's INR increased slightly from 1.7 yesterday to 1.8 today. However, since her warfarindosage was just increased yesterday, I would recommend continuing warfarin 12.5 mg daily at 1700 as currently ordered for today, 11/09/19. 2. Please continue to check Ms. Aguilera's INR daily. I will continue to follow the patient this weekend. Page me with any questions. Bar Marquez (Eddie), Pharm.D., [facility] Pager: [phone] signed by Bar Marquez RPH at 11/09/2019 6:34 AM Thania Bautista OTA - 11/08/2019 3:31 PM CDTOCCUPATIONAL THERAPY NOTE: Discharge Recommendations: Therapy Needs and Potential:- Patient would benefit from continued skilled occupational therapy services to address:Decline in basic activities of daily living, Decline in instrumental activities of daily living, Decreased strength, Decreased range of motion, Decreased endurance and Caregiver training - Patient demonstrates good potential to improve and meet therapy goals with further skilled occupational therapy services. - Patient appears motivated to improve their B/IADLs and return to their previous level of function. Challenges to Home Transition:- Requires physical assistance for BADLS - Requires physical assistance for IADLS - Increased risk of falls - Environmental barriers Equipment Recommendations:bariatric BSC, WC, Hospital Bed, and Vanessa Lift Precautions: WB: NA General: PPE Utilized: Gloves and Surgical mask, Fall, Morbid obesity and aerosol trach Bracing: N/A S: Patient agreeable to participate in occupational therapy. However, patient did state that she just returned from having a procedure done PAIN Patient denied pain, just reported weakness and fatigue. O: Patient found semireclining in bed. Patient seen this date for the following: ADL Training Patient demo'es decreased motivation to strive for independence with BADLs. Grooming: SBA/Setup with full set up UB Dressing: Moderate assist. Patient has difficulty moving UB to complete thorough UB dressing due to morbid obesity. Patient educated about fall prevention and safety awareness. GOLDBERG observed and analyzed patient's body mechanics thru out session, especially during transitional movements and offered recommendations to improve techniques to reduce patient's fall risk and increase patient's overall safety and independence during ADLs. Therapeutic Exercise/Procedure Patient seen for Towel/dowel and General strengthening : Patient performed Shoulder flexion/extension, Shoulder abduction/adduction, Elbow flexion/extension and Wrist flexion/extension, Patient completed 3 sets of 10 reps, Patient required tactile and/or verbal cueing to perform exercises with correct technique Patient/caregiver returns demonstration x 10 repetitions as follows: Tactile and verbal cues provided for correct technique. Patient left semireclining in bed with call fields in reach. resting comfortably with all needs met. A: Patient exhibited Fair participation in therapy and responded fairly to treatment this session. Patient is progressing toward goal(s) 2, 4, 6 and 7. Poor endurance, Poor motivation and morbid obesity remain(s) a limiting factor. P: Daily living activities and Therapeutic exercises to maximize patient's safety and independence with BADLs. ASHLYN Bautista Pager [phone] Supervising OTR: Charlotte Kim Total Timed Treatment Codes: 45 Min Total Treatment Time: 45 Min Flakito Stahl MD - 11/08/2019 1:34 PM CDT Adebayo Team Progress Note Date of Service: 11/08/2019 13:34 Date of Admission: 09/20/2019 Chief Complaint: dyspnea 24-HOUR EVENTS: - no acute events overnight SUBJECTIVE: Endorsed some improvement in Anxiety after dose adjustment. Worried about wound care. PHYSICAL EXAM: Vitals: 11/08/19 1144 11/08/19 1154 11/08/19 1155 11/08/19 1234 BP: BP Location: Patient Position: Pulse: 85 85 86 Resp: 16 16 16 Temp: TempSrc: SpO2: 98% 98% 98% Weight: 199.4 kg (439 lb 9.6 oz) Height: 1.753 m (5' 9") General: alert and oriented x 4 (person, place, date/time and situation); no significant distress Lungs: upper airway transmitted sounds over anterior lung hirsch, tracheostomy in place Cardio: S1, S2 normal; no murmurs, rubs or gallops, regular rate and rhythm Abdomen: soft; non-tender; obese; normoactive bowel sounds Extremities: no clubbing, cyanosis, or edema. LABS/IMAGING - reviewed, pertinent results as below: lNR 1.7 ASSESSMENT/PLAN Vinnie Aguilera is a 43 year old female who was admitted to the hospital with: Bilateral pulmonary emboli Calcified nodules in R atrium x2 CT PE significant for bilateral pulmonary emboli and possible thrombi in right ventricle, patient started on heparin drip and bridging to warfarin. TTE showed 2 mobile masses that appeared calcified. No intervention needed at this time as patient is already receiving anticoagulation. Cards asked to evaluate patient again given new findings. - SHAD to further characterize RA masses - Cards recs after SHAD - On heparin drip, coumadin started with goal 2-3 - EKG QAM - Consider hypercoagulability panel OP given + FHx Chest Pain, resolved Has no further episodes of chest pain. Troponin negative, EKG remain unchanged. - Heparin Drip and Coumadin 12.5 HTN Anxiety Insomnia - Clonazepam to 0.5 BID - continue with Ramelteon - Metoprolol 12.5mg bid DUKE GERD Menoorrhagia Normal barium swallow, GI signed off, to follow-up in GI clinic in 4-6 weeks and needs casebook request for endoscopy. Consulted Nuclear Instructor to assist with Metrorrhagia. Will need f/u OP with IUD, Pap smear. - PPI BID - Progesterone depot given. Acute on Chronic Hypercapnic Hypoxic Respiratory Failure 2/2 Acute HFpEF Exacerbation and Untreated ETIENNE/OHS s/p tracheostomy (10/03)- on 3-4L O2 at home Toxic Metabolic Encephalopathy 2/2 Profound Hypercapnia Severe Pulmonary HTN Pickwickian Syndrome Morbid Obesity PFTs w/ Restrictive Pattern, not COPD (2013) - Suction Q4H and PRN, PCT TID - c/w Hypersal TID - c/w Duonebs Q6h - c/w mucomyst - f/u speech recs: remain NPO with NGT,free H2O protocol PRN for QOL - Regular diet with thin liquids Anxiety Insomnia THC Use Disorder Tobacco Use Disorder - d/c paxil - klonipin 0.5 mg BID - avoid antipsychotics as patient does have prolonged QTc - PT/OT Acute on Chronic Diastolic HF HLD Prolonged QTc - c/w Bumex PO mg Q12 H - Strict I/O - avoid QTc prolonging agents - c/w ASA daily Morbid Obesity Hirsutism Pressure Ulcers, POA - SSI Q6H - Wound care notified Disposition Anticipated Discharge Date : 7+ days Barriers to Discharge: patient placement Flakito Gallo MD PGY-1 Neurology Pager number [phone] END OF DAILY PROGRESS NOTE Hospital Course: Vinnie Aguilera is a 43 year old morbidly obese female withOSA (noncompliant with BiPAP), severe pHTN,PFTs w/restrictive pattern (2013),chronic hypoxicrespiratory failure(on home3-4L O2 intermittently),Pickwickian syndrome, HTN, CHFpEF (TTE 09/23/19), chronic DUKE, menorrhagia, and tobacco/THC use disorderwho presented with acute on chronic hypercapnic and hypoxic RF. ABGs were significant for increasing acidosis which improved once intubated in the MICU. DVT ruled out on doppler and patient had intermediate wells score, thus CT PE not obtained. Patient was diuresed aggressively in the setting of acute on chronic HFpEF. Fevers developed 36-48 hours after intubation and patient was initially started on vanc + merrem for aspiration PNA, which was then de-escalated to Unasyn. Infectious workup negative and procal WNL. CBT trial failed twice. As patient could not be weaned off vent despite aggressive diuresis and completion of abx, tracheostomy tube was placed by ENT on 10/04/19. Fevers persisted, so GI was consulted as RUQ US demonstrated possible dilation of CBD. GI suggested fever less likely related to biliary source given normal LFTs. HIDA also negative for acute cholecystit is/biliary obstruction. Patient continued to spike fevers, sputum grew citrobacter koseri and ID wasconsulted. ID suspect fevers 2/2 hypersensitivity reaction likely to beta lactams. Abx discontinued and patient remained afebrile thereafter. Patient weaned off pressors and currently on minimal sedation. Tolerating trach trials throughout the day/night and saturating well. Family care conference held, plans to d/c home with 24/7 care from family members vs lyudmila placement. Patient then tolerated downsizing of trach to 6-0 shiley. Had severe anxiety on TTF, likely related to trach collar and Precedex Withdrawal. Improved on Clonazepam and will add Ramelteon. Added Metoprolol. D/c pepcid and addedpantoprazole. Remains in sinus tachy, CTPE showed scattered b/l PEs and possible RA thrombus seen onTTE, cards re engaged to assist with that. Started on heparin drip and coumadin for INR of 2-3. SHAD ordered to further characterize RA masses, with cards following. GI consulted for severe GERD on MBS, recommended outpatient endoscopy in 4-6 weeks from discharge asbarium swallow study was normal. Consulted Nuclear Instructor for Menorrhagia, Progesterone depot given. F/u OP Placement and funding remain a barrier to discharge Associated attestation - Alma Blevins MD - 11/08/2019 8:25 PM CDTI personally examined the patient on 11/08/[address] Gallo's resident note as written. Patient feeling better with slight increase in clonazepam. Unable to use SSRI given prolonged QTc. SHAD today without RA mass, rather prominent eustachian valve. Needs assistance OOB to chair. Continue with wound care and PT/OT. I actively participated in the decision-making process. Please see the resident's note for additional details. Kira June, ERIKA - 11/08/2019 10:[address] [facility] LANGUAGE PATHOLOGY Daily Progress Note - 11/08/2019 [id number] Vinnie Aguilera : 1975 Age: [age] year old Sex: female SUBJECTIVE: Patient asleep upon arrival, roused to verbal stimuli. Agreeable to therapy. Pt reports adequate toleration of advanced po diet. SITE PROJECT MANAGER provided 2 rounds of tracheal suctioning with return of moderate amount of secretions. OBJECTIVE: Vinnie Aguilera was seen for 1 SITE PROJECT MANAGER treatment session/s on this date. Treatment was provided due to dysphagia and dysphonia. Patientis a 43 year old female admittedfor management of acute on chronic hypercapnic and hypoxic respiratory failure. PMH significant forOSA, severe pHTN, PFTs w/ restrictive pattern (2013), chronic hypoxic RD (on 3-4L O2 intermittently), Pickwickian syndrome, HTN, CHFpEF, chronic Fe deficiency anemia, menorrhagia, tobacco abuse disorder, THC use disorder, and morbid obesity. Patient urgently intubated on 09/21/19 and unable to wean from vent despite aggressive diuresis and completion of antibiotics. ENT placed 8-0 XL Shiley on 10/04/19.Downsized to a 6-0 cufflessShiley on 10/22/19. MBS (11/07/19) Impressions: mild oropharyngeal dysphagia - overall safe/functional swallow; flash penetration with thin and nectar thick liquid; trace pharyngeal residue; esophageal retention MBS (10/28/19) Impressions: moderate-severe pharyngeal dysphagia; silent aspiration of thin liquid (PAS 8); intermittent flash penetration of nectar thick liquid; mild-moderate pharyngeal residue; significant esophageal retention with retrograde flow through the PES into the pharynx FEES (10/22/19) Impressions: severe pharyngeal dysphagia; intermittently silent aspiration of secretions, ice chips, and nectar thick liquids (PAS 7-8); deep penetration (PAS 5) and possible aspiration of puree (PAS 5, ?7-8); mild- moderate diffuse pharyngeal residue; suspected reflux Progress on short term goals was as follows: Swallowing: - Patient will tolerate the safest, least restricted po diet texture without overt s/sx of aspiration or other negative effects on medical condition: Patient observed with po trials of thin liquids via cup/straw and chewable solids. Observed with adequate acceptance/containment and timely A-P oral bolus transport subjectively. No overt s/sx of aspiration across consistencies. WBC is WNL. Temp (24hrs), Av.8 C (98.3 F), Min:36.4 C (97.6 F), Max:37.1 C (98.7 F). (goal met) ASSESSMENT: Vinnie Aguilera has met the above goal, continuing to present with mild oropharyngeal dysphagiathough with overall safe swallow function per most recent MBS on 11/06 during which no aspiration visualized. No overt s/sx of aspiration observed during today's session and patient reports adequate toleration of advanced diet. Although patient without current chest imaging, she is otherwise w/o signs of developing respiratory-related infection (i.e. WBC stable, afebrile). Based on these observations,patient appears safe to continue current po diet with adherence to universal swallow precautions. She continues to tolerate speaking valve without significant changes in baseline monitors or complaintsor s/sx of distress, discomfort, or dyspnea. No further acute SITE PROJECT MANAGER services appear indicated at this time. PLAN: 1. Recommend patient continue a regular-textured diet with thin liquids and swallow precautions: sitfully upright/chair, small single sips/bites, alternate sips/bites and remain upright for 30 minutesafter meals 2. Recommend elevated head of bed and frequent, thorough oral hygiene care. 3. No further acute SITE PROJECT MANAGER services indicated at this time, so service is signing off. Please re-consult if indicated. Thank you. Kira June M.S. [facility]-SITE PROJECT MANAGER Speech-Language Pathologist Office: [phone] Pager: [phone] signed by Kira June SLP at 11/08/2019 11:02 AM Sabina Franco LMSW - 11/08/2019 10:26 AM CDTSocial Worker Note SHEET SEWER met with patient this morning to provide an update. Sabina Kaplan LMSW Automobile Racer Care Management-Sheet Metal Apprentice (Not for Patient use) Oracio Toribio MBBS - 11/08/2019 8:30 AM CDT Brief ER Cardiology Note 11/08/2019 08:30 1:06 AM HPI: Vinnie Aguilera is a 43 year old female with PMHx of ETIENNE not on CPAP, severe pulmonary HTNby RHC, COPD, Pickwickian syndrome, morbidly obesity, HTN, HFpEF who presents with SOB. Etiologies of Hypoxic Respiratory failure was thought to be 2/2 HFpEF, ETIENNE, PE and she is s/p tracheostomy. She was found to have bilateral PE and Echo showed 2 calcified masses in the Right atrium. She was startedon coumadin by the primary team. Echo showed possible mobile echogenic mass (2.8cm x1.9cm) in rightatrium, which is slightly increased in size compared with the previous study. They recommended SHAD and or cardiac MRI Physical Examination: Temp: [36.6 C (97.8 F)-37.1 C (98.7 F)] Pulse: [86-96] Resp: [16-20] BP: (130-141)/(61-76) MAP (mmHg): [79-98] Intake/Output Summary (Last 24 hours) at 11/08/2019 0830 Last data filed at 11/08/2019 0400 Gross per 24 hour Intake 522 ml Output 2000 ml Net -1478 ml Cardio: right JVD, RRR, no murmurs appreciated Lungs: fine crackles diffusely, minimal air entry Extremities: BLE edema TTE: 10/05/2018 normal EF, normal diastolic, normal wall motion, normal RV Cardiac Cath: 02/26/2014 RHC severe pulmonary HTN Assessment/Plan: Vinnie Aguilera is a 43 year old female admitted with: 1. Bilateral PE 2. Mobile masses in the RA 3. Severe pulmonary HTN 4. ETIENNE not on CPAP 5. HTN 6. Acute on chronic microcytic anemia, in the past was diagnosed with iron deficiency Recommendations: Patient is currently on heparin gtt and coumadin for PE Recommend SHAD for further characterization of the RA masses. Difficult to ascertain the characterization of the mass due to limited resolution of echo. Further recommendations will be made after SHAD Currently patient is on Bumex tablet 2 mg bid for HFpEF Associated attestation - Candido Carbone MD - 11/08/2019 6:51 PM CDTI personally examined the patient on 11/08/[address] Narayanan's note as written. I actively participated in the decision-making process. Bar Marquez RPH - 11/08/2019 5:52 AM CDTPharmacy Note for Warfarin Monitoring Pharmacy to monitor warfarin dosing for patient Vinnie Aguilera, [id number]. Indications: bilateral pulmonary emboli and possible right ventricular thrombi (CTA of the chest on 10/29/19); possible right atrial thrombi (TTE on 11/01/19) Goal INR: 2-3 Warfarin dosage prior to admission: none; warfarin initiated this hospitalization on 10/31/19 Most recent INR: 1.7 this morning Current warfarin dosage: 10 mg daily at 1700 Date INR Warfarin dose received 10/31/19 1.0 5 mg 11/01/19 1.0 5 mg 11/02/19 1.0 7.5 mg 11/03/19 1.0 10 mg (7.5 mg + 2.5 mg) 11/04/19 1.0 10 mg 11/05/19 1.3 10 mg 11/06/19 1.4 12.5 mg (10 mg + 2.5 mg) 11/07/19 1.7 10 mg 11/08/19 1.7 Bridging anticoagulation: continuous infusion of heparin (initiated on 10/29/19) Assessment and Recommendations: 1. Ms. Aguilera's INR increased from 1.4 two days ago on 11/06/19 to 1.7 yesterday after receiving a total of 12.5 mg of warfarin two days ago, but her INR remains 1.7 today after receiving 10 mg of warfarin yesterday. Therefore, I would recommend changing warfarin from 10 mg daily at 1700 as currently ordered to 12.5 mg daily at 1700 beginning today, 11/08/19. 2. Please continue to check Ms. Aguilera's INR daily. I will continue to follow the patient this weekend. Page me with any questions. Bar Marquez (Eddie), Pharm.D., [facility] Pager: [phone] signed by Bar Marquez [facility] at 11/08/2019 5:54 AM Jazmin Nguyen PTA - 11/07/2019 5:03 PM CDTPTA Progress Note: Patient seen for skilled services this date. Detailed note to follow within 24 hours. Therapy Needs and Potential: Patient would benefit from continued physical therapy services to address: decline in bed mobility decline in transfers decline in gait and/or balance decreased strength decreased range of motion decreased endurance Challenges to Home Transition: increased risk of falls decreased caregiver availability decreased safety awareness Environmental barriers Equipment recommendations: Bariatric wheelchair, hospital bed and mechanical lift Jazmin Mir PTA Pager # [phone] Supervising PT Beatrice Bansal Jazmin Nguyen PTA - 11/07/2019 5:03 PM CDT Physical Therapy Progress Note: Discharge Recommendations: Therapy Needs and Potential: Patient would benefit from continued physical therapy services to address: decline in bed mobility decline in transfers decline in gait and/or balance decreased strength decreased range of motion decreased endurance Challenges to Home Transition: increased risk of falls decreased caregiver availability decreased safety awareness Equipment recommendations: Bariatric wheelchair, hospital bed and mechanical lift PAIN: -Pain Location: L knee -Pain rating before treatment: 0, After treatment: 5 -Pain Management: Nursing Notified PRECAUTIONS: Weight Bearing Precaution:WBAT General Precautions:PPE used:Gloves and Surgical mask, General, Fall, oxygen:Trach collar Bracing/Cast present or required:N/A S: Patient agreeable to working with PT. O: Patient met semi reclined on stretcher. Patient seen for the following: Bed mobility: Rolling: Maximal assist x 2 cued patient on body mechanics Transfers: Dependent stretcher to bed transfer towards L side dependent transfer from bed to chair to bed via Vanessa lift Attempted Sit <-> stand from/onto bariatric recliner: Maximal Assist X 2 persons and using grab bars in restroom Verbal cueing provided for correct hand placement and use of AD Patient unable to clear buttocks off chair Neuromuscular re-education: Incorporated isometric BUE and BLE contractions while attempting to clear buttocks from seat X 10reps with 5 second holds each X 2 trials patient able to return demo correctly and slowly present improved dynamic movements with repetition and verbal assurance Therapeutic exercise: patient educated in Energy conservation, Fall prevention, General strengthening, Positioning, Relaxation/breathing techniques and Safety awareness., instructed patient in the following: ankle pumps,quad sets, glut sets, heel slides, patient/caregiver verbalizes understanding of instructions. After session, patient Semi reclined in bed and call fields provided. A: Patient tolerated session fair. Unable to progress towards goals due to deconditioning and patient's body habitus. Patient will continue to benefit from skilled services to address decline in Bed mobility, decline in tranfers, decline in gait and overall deconditioning. P: PT will - progress mobility. Total Timed Tx Codes in Minutes: 85 Min Total Treatment Time in Minutes: 85 Min Jazmin Mir PTA Pager # [phone] Supervising PT Beatrice Bansal Kira June, ERIKA - 11/07/2019 3:20 PM CDT Modified Barium Swallow Speech-Language Pathology Services Vinnie Aguilera : 1975 Age: [age] year old Sex: female SANTAMARIA: 11/07/2019 Time In/Out: [id number] Referring Physician: Felicity Date of Referral: 11/07/19 Medical Diagnosis: oropharyngeal dysphagia; feeding difficulty Reason for Referral: r/o aspiration; objectively re-evaluate the oropharyngeal swallow with imaging SUBJECTIVE: Patient alert/awake upon arrival with speaking valve donned. Agreeable to study with SITE PROJECT MANAGER. OBJECTIVE: Vinnie Aguilera was seen for modified barium swallow study (MBS). Patientis a 43 year old female admittedfor management of acute on chronic hypercapnic and hypoxic respiratory failure. PMH significant forOSA, severe pHTN, PFTs w/ restrictive pattern (2013), chronic hypoxic RD (on3-4L O2 intermittently), Pickwickian syndrome, HTN, CHFpEF, chronic Fe deficiency anemia, menorrhagia, tobacco abuse disorder, THC use disorder, and morbid obesity. Patient urgently intubated on 09/21/19and unable to wean from vent despite aggressive diuresis and completion of antibiotics. ENT placed 8-0 XL Shiley on 10/04/19.Downsized to a 6-0 cuffless Shiley on 10/22/19. Pertinent Imaging: Abdominal 1 View - To Confirm Dobhoff / Small-bore (non-styleted) Enteral Feeding Tube Placement. Result Date: 10/19/2019 FINDINGS/IMPRESSION: The Dobbhoff tube terminates below the diaphragm in the distal stomach/first portion of the duodenum. The visualized bowel gas pattern is normal. Bilateral basilar consolidative opacities, right greater than left. Cardiomegaly. Preliminary Report Dictated by Resident: Seferino Mayo I, Marjan Ly MD., have reviewed this study and agree with the above report. Fl Barium Swallow Esophagus Result Date: 10/30/2019 Normal barium swallow. Preliminary Report Dictated by Resident: Bolivar Colunga I reviewed this study and agree. Franklyn Abad MD., have reviewed this study and agree with the above report. Nm Hepatobiliary Result Date: 10/10/2019 No evidence for acute cholecystitis or biliary obstruction. Suspected diverticulum at the second portion of the duodenum. Preliminary Report Dictated by Resident: Lele Lawton I, Karl Wan MD., have reviewed this study and agree with the above report. Xr Chest 1 Vw Result Date: 10/24/2019 Findings and Impression: Patient rotation exaggerates cardiomediastinal silhouette. Heart remains markedly enlarged. There is persistent interstitial abnormality consistent with edema. Tracheostomy appliance projects over the upper left chest (not over the midline-probably related to patient rotation). Central airways are not well seen. Recommend repeating the radiograph into AP to better characterize position of the tracheostomy appliance. No acute osseous abnormality. Widening of the acromiohumeral interval on the right, similar prior. Dictating tube courses along the midline into the left upperquadrant and out of [id number]. Xr Chest 1 Vw Result Date: 10/17/2019 FINDINGS/IMPRESSION: A tracheostomy tube terminates 3.1 cm above the nelson. The nasogastric tube terminates outside the field of view. The lungs are underexpanded and there is marked central vascular congestion. Mild interstitial edema is also noted. There is retrocardiac opacification which may be a combination of atelectasis and pleural fluid however underexpansion the lungs and overlying soft tissue limits evaluation. Underlying infection is not excluded.. Bilateral small pleural effusions are seen. No pneumothorax is seen. The heart is moderately enlarged. A left-sided 6th rib fracture is noted with osseous remodeling. Preliminary Report Dictated by Resident: Margaux Golden I, Jose Clements MD., have reviewed this study and agree with the above report. Mod Barium Swallow, (cookPollGround) Result Date: 10/29/2019 Aspiration of thin liquids with reflux and minimal residual in the piriform sinuses. Please refer tothe speech pathologist's report for further details. Preliminary Report Dictated by Resident: Bolivar Colunga I reviewed this study and agree. I, Franklyn Lozano MD., have reviewed this study and agree with the above report. Xr Kub Result Date: 10/18/2019 Impression: The NG tube tip and sidehole are in the stomach. Enlarged liver. Xr Kub Result Date: 10/09/2019 1. Enteric tube terminates in the distal stomach. Ct Chest Pulmonary Angiogram Result Date: 10/29/2019 1. Bilateral pulmonary emboli in the distal subsegmental lower lobes as described above with straightening of the interventricular septum suggestive of right heart strain. 2. Severe cardiomegaly withimage findings consistent with mild pulmonary edema and congestive heart failure. 3. Pulmonary trunk dilation, consistent with pulmonary artery hypertension. 4. Right atrial and right ventricular enlargement with straightening of the interventricular septum suggestive of right heart strain. Heterogeneous appearance of the right atrium. The areas of low attenuation are concerning for additional filling defects within the right atrium versus suboptimal opacification of the chamber, including right atrial appendage. A few suspicious areas of thrombi are also present in the dilated right ventricle. The above findings were communicated to and acknowledged by Dr. Gallo with the [facility] team at 15:47 on 10/29/2019. Consider echocardiography or repeat more optimal CTA for evaluation of the right atrium and right ventricle for presence of thrombi. Preliminary Report Dictated by Resident: Matilda Brower I, Marjan Ly MD., have reviewed this study and agree with the above report. Xr Knee 3 Vw Left Result Date: 10/31/2019 No acute osseous abnormality. Mild to moderate knee osteoarthrosis. Preliminary Report Dictated by Resident: Neto Lee I, Elodia Aden MD., have reviewed this study and agree with the above report. Previous SITE PROJECT MANAGER Services/Swallow History: Patient has been seen for dysphagia management since 10/17 with completion of FEES on 10/21 and MBS on 10/27 (both detailed below). Therapeutic intervention with swallow exercises initiated. Patient has also been seen for speaking valve which she is now independent with. MBS (10/28/19) Impressions: moderate-severe pharyngeal dysphagia; silent aspiration of thin liquid (PAS 8); intermittent flash penetration of nectar thick liquid; mild-moderate pharyngeal residue; significant esophageal retention with retrograde flow through the PES into the pharynx FEES (10/22/19) Impressions:severe pharyngeal dysphagia; intermittently silent aspiration ofsecretions,ice chips, and nectar thick liquids (PAS 7-8); deep penetration(PAS 5)and possible aspiration of puree (PAS 5, ?7-8); mild- moderate diffuse pharyngeal residue; suspected reflux Past Medical History: Diagnosis Date Anemia CHF (congestive heart failure) Diastolic heart failure ( EF = 50-55%, NYHA Class III, Stage C HTN (hypertension) Menorrhagia ETIENNE (obstructive sleep apnea) not on CPAP Past Surgical History: Procedure Laterality Date LYMPH NODE BIOPSY 2013 RIGHT HEART CATHETERIZATION 2013 TRACHEOSTOMY N/A 10/04/2019 Surgeon: Main Samuel MD; [facility] VENTRAL HERNIORRHAPHY N/A 05/29/2016 Surgeon: Geraldine Landis; Location: [facility] General Behavior: Alert and Cooperative Hearing: Within Functional Limits for speech Oral Mechanism: Structure: dentate, some missing teeth and dry oral mucosa Function: no facial droop/weakness, no subjective trismus, symmetric labial spread and pucker, lingual protrusion midline with equal lateralization,unable to visualizepalatal retraction, + dysphonia(tracheostomy), no dysarthria Respiratory Status: aerosolized trach collar: 10L/min, 30% FiO2 Orientation/Cognition: - Patient oriented to: person, place, time and situation - Response type: verbal - If verbal, describe speech: clear - Follows 1-step commands: Yes EVALUATION: Patient presented with barium in thin liquids, nectar-thick liquids, puree and chewable solid consistencies viewed under fluoroscopy in the lateral plane with Dr. Jordan from radiology. COMPONENTS AND SCORES ORAL IMPAIRMENT Component 1-Lip Closure: 0= No labial escape Component 2-Tongue Control During Bolus Hold: 0= Cohesive bolus between tongue to palatal seal Component 3-Bolus Preparation/Mastication: 0= Timely & efficient chewing and mashing Component 4-Bolus Transport/Lingual Motion: 0= Brisk tongue action Component 5-Oral Residue: 0= Complete oral clearance Component 6-Initiation of Pharyngeal Swallow: 1= Bolus head in valleculae, 2= Bolus head at posterior laryngeal surface of epiglottis, and 3= Bolus head in pyriforms PHARYNGEAL IMPAIRMENT Component 7-Soft Palate Elevation: 0= No bolus between soft palate (SP)/pharyngeal wall (PW) Component 8-Laryngeal Elevation: 0= Complete superior movement of thyroid cartilage with complete approximation of arytenoids to epiglottic petiole Component 9-Anterior Hyoid Excursion: 1= Partial anterior movement Component 10-Epiglottic Movement: 0= Complete inversion Component 11-Laryngeal Vestibular Closure-Height Swallow: 0=Complete; no air/contrast in laryngeal vestibule Component 12-Pharyngeal Stripping Wave: 0= Present - complete Component 13-Pharyngeal Contraction (A/P view only): NA Component 14-Pharyngoesophageal Segment Openin= Complete distension and complete duration; no obstruction of flow Component 15-Tongue Base (TB) Retraction: 1= Trace column of contrast or air between TB and PW Component 16-Pharyngeal Residue: 1= Trace residue within or on pharyngeal structures and LOCATION B:Valleculae ESOPHAGEAL IMPAIRMENT Component 17-Esophageal Clearance Upright Position: 1= Esophageal retention PENETRATION/ASPIRATION thin liquid: Penetration occurred: intermittent, flash and during the swallow. Aspiration did notoccur: N/A PAS: 2-enters the airway, remains above vocal folds and is ejected nectar thick liquid: Penetration occurred: intermittent and flash. Aspiration did not occur: N/APAS: 2-enters the airway, remains above vocal folds and is ejected puree: Penetration did not occur: N/A. Aspiration did not occur: N/A PAS: 1- material does not enter airway chewable solids: Penetration did not occur: N/A. Aspiration did not occur: N/A PAS: 1-material does not enter airway Penetration/Aspiration Scale Legend: 1-material does not enter airway 2-enters the airway, remains above vocal folds and is ejected 3-enters the airway, remains above vocal cords and is not ejected 4-enters the airway, contacts the vocal folds and is ejected 5-enters the airway, contacts the vocal folds and is not ejected 6-enters the airway, passes below the vocal folds and is ejected into the larynx or out of the airway 7-enters the airway, passes below the vocal folds and is not ejected from the trachea despite effort 8-enters the airway, passes below the vocal folds and no effort is made to eject FACILITATIVE TECHNIQUES ATTEMPTED: bolus modification and mode of presentation Due to technical error, no images saved to PACS. However, radiologist and SITE PROJECT MANAGER in agreement with findings. Patient/Family Education: Discussed findings of evaluation, recommendations and SITE PROJECT MANAGER plan of care. Patient/Family Goal: safe po intake ASSESSMENT: Vinnie Aguilera presents with very mild oropharyngeal dysphagia with mild impairments in airwayprotection s/p tracheostomy, though swallow is safe and functional overall. Of note, patient with speaking valve in place for today's study. Oral phase largely intact with no anterior spillage or oral residue observed. Swallow initiation observed to vary between the posterior surface of the epiglottisand the pyriforms with thin and nectar thick liquids which resulted in intermittent flash penetration (PAS 2). No other penetration/aspiration observed. She was noted with trace pharyngeal residue in the vallecula d/t mildly reduced BOT retraction, though this did not negatively impact airway protection. Patient demonstrates improvement in esophageal reflux as no retrograde flow observed in limited lateral view, though some esophageal retention appreciated below the level of the PES. Overall, patient demonstrates significant improvement in swallow function. She may still benefit from further esophageal work-up with EGD and/or manometry, though agree with GI for completion in OP setting as indicated. Based on these findings, patient is safe for advancement of diet with continued adherence to universal swallow precautions. Recommend at least one follow-up session with SITE PROJECT MANAGER to assessdiet toleration and provide additional recommendations as indicated. Impressions: mild oropharyngeal dysphagia - overall safe/functional swallow; flash penetration with thin and nectar thick liquid; trace pharyngeal residue; esophageal retention Prognosis is favorable for safe po intake and meeting nutrition/hydration needs by mouth with adherence to swallow precautions due to above findings. PLAN: 1. Recommend patient advance a regular-textured diet with thin liquids and swallow precautions: sit fully upright/chair, small single sips/bites, alternate sips/bites and remain upright for 30 minutes after meals 2. Recommend elevated head of bed and frequent, thorough oral hygiene care. 3. Recommend SITE PROJECT MANAGER therapy 2-5x/wk for 15-45 min/session to address the following goals: Swallowing: - Patient will tolerate the safest, least restricted po diet texture without overt s/sx of aspiration or other negative effects on medical condition: 4. Patient could benefit from further esophageal work-up with EGD and/or manometry per GI discretion. Kira June M.S. [facility]-SITE PROJECT MANAGER Speech-Language Pathologist Office: [phone] Pager: [phone] Sabina Kaplan, CARLITOS - 11/07/2019 3:06 PM CDT Sheet Metal Apprentice Note Received Quote from Ariana as follows: Tanks - $20/Purchase per Tank - Liter flow on the order is 12LPM meaning one Tank will only last her46 minutes and pt will need plenty of Tanks Regulator (Required for Tanks, only one is needed) - $30 Purchase Home Concentrator - $300/Monthly Rental (this is for 2 concentrators since that is what she would need for her liter flow) Delivery Fee - $75 Pending update from team on ability to wean patient. Patient currently at 10L. Per CC note the following agencies provided the following information: -[facility]- can only supply up to 10L- sent request again to provide quote for 10L -[facility]- can only supply up to 6L -[facility]- no 02 -[facility]- no ELISHA, need card on file - [facility]- do not supply the needed L of oxygen -[facility]- do not supply 02 Below is previous quotes received by ICU CC for HH and DME: [facility] denied [facility] denied [facility] STAFF RELIEF 125 for RN, 150 for PT/OT [facility] 149 for all therapies but can negociate ABSOLUTE KHEIR $95 per nursing visit and then $100 for each PT and OT visit SIGMA No Response [facility]: Purchase Only HD DAC $225 HD RW $225 24" WC $495 26" WC $799 Seat Belt $15 Suction Machine $490 Bariatric HB $2550 Rental Only Bariatric HB $599 1st month $299 2nd month A credit card on file is required Patient exceeds the weight capacity for our manual vanessa lift, we do not do any type of trach collarequipment or supplies If any questions please follow up with our office [phone] [facility] 24 inch Bariatric wheelchair with elevate leg rest : $375 Bariatric Hospital bed: $1600 Bariatric Electric Vanessa Lift: $2000 ( it only comes in electric ) Bariatric Commode: $125 Bariatric Walker with wheels: $125 We will need 3 to 5 business days to have everything available for delivery. Unfortunately, we cannot help this patient with any respiratory or trach needs. [employer]: Wheelchair accessories included in barber for WC Wheelchair 799 (rental barber?) WC elevated leg rest 99$ Hospital Bed 2199 plus 399 delivery fee [facility] Medical Supply Purchase only No Hospital Beds Available Bipap - Starting at $1299 Auto PAP - Starting at $799 Bariatric Wheelchair - 599$ Heavy Duty Vanessa Lift and Swing, up to 600 lbs - $6995 Drop Arm Commode - 399$ Suction Machine - 449$ [employer] Trilogy rental 900 per month with 2 months upfront [employer] Trilogy denied as rental is 1200 per month [facility] New Purchase 1200 Bipap Patient to go for MBS today and will need to follow up with the results. As of 11/04 therapy continues to recommend a wheelchair, bariatric [facility] hospital bed, and mechanical lift. SHEET SEWER placed call to Shira with [employer] to get an update on IHC application and medicaid applications. SHEET SEWER left a requesting call back. Sabina Kaplan LMSW Automobile Racer Care Management-Sheet Metal Apprentice (Not for Patient use) Flakito Stahl MD - 11/07/2019 1:35 PM CDT A[facility] Team Progress Note Date of Service: 11/07/2019 13:35 Date of Admission: 09/20/2019 Chief Complaint: dyspnea 24-HOUR EVENTS: - no acute events overnight SUBJECTIVE: Patient in low spirit this AM. Complains of increased anxiety. PHYSICAL EXAM: Vitals: 11/07/19 1244 11/07/19 1254 11/07/19 1255 11/07/19 1304 BP: BP Location: Patient Position: Pulse: 92 92 92 93 Resp: 16 16 16 16 Temp: TempSrc: SpO2: 93% 94% 94% 95% Weight: Height: General: alert and oriented x 4 (person, place, date/time and situation); no significant distress Lungs: upper airway transmitted sounds over anterior lung hirsch, tracheostomy in place Cardio: S1, S2 normal; no murmurs, rubs or gallops, regular rate and rhythm Abdomen: soft; non-tender; obese; normoactive bowel sounds Extremities: no clubbing, cyanosis, or edema. LABS/IMAGING - reviewed, pertinent results as below: lNR 1.7 ASSESSMENT/PLAN Vinnie Aguilera is a 43 year old female who was admitted to the hospital with: Bilateral pulmonary emboli Calcified nodules in R atrium x2 CT PE significant for bilateral pulmonary emboli and possible thrombi in right ventricle, patient started on heparin drip and bridging to warfarin. TTE showed 2 mobile masses that appeared calcified. No intervention needed at this time as patient is already receiving anticoagulation. Cards asked to evaluate patient again given new findings. - Follow up on cards recs - On heparin drip, coumadin started with goal 2-3 - EKG QAM - Per GI, no inpatient scope - Consider hypercoagulability panel OP given + FHx Chest Pain, resolved Has no further episodes of chest pain. Troponin negative, EKG remain unchanged. - Heparin Drip and Coumadin 10 HTN Anxiety Insomnia - Will titrate back up the Clonazepam to 0.5 BID - continue with Ramelteon - Metoprolol 12.5mg bid DUKE GERD Menoorrhagia Normal barium swallow, GI signed off, to follow-up in GI clinic in 4-6 weeks and needs casebook request for endoscopy. Consulted Nuclear Instructor to assist with Metrorrhagia. Will need f/u OP with IUD, Pap smear. - PPI BID - Progesterone depot given. Acute on Chronic Hypercapnic Hypoxic Respiratory Failure 2/2 Acute HFpEF Exacerbation and Untreated ETIENNE/OHS s/p tracheostomy (10/03)- on 3-4L O2 at home Toxic Metabolic Encephalopathy 2/2 Profound Hypercapnia Severe Pulmonary HTN Pickwickian Syndrome Morbid Obesity PFTs w/ Restrictive Pattern, not COPD (2013) - Suction Q4H and PRN, PCT TID - c/w Hypersal TID - c/w Duonebs Q6h - c/w mucomyst - f/u speech recs: remain NPO with NGT,free H2O protocol PRN for QOL - Advanced diet to regular with nectars. Repeat MBS today to reevaluate Anxiety Insomnia THC Use Disorder Tobacco Use Disorder - d/c paxil - klonipin 0.5 mg BID - avoid antipsychotics as patient does have prolonged QTc - PT/OT Acute on Chronic Diastolic HF HLD Prolonged QTc - c/w Bumex PO mg Q12 H - Strict I/O - avoid QTc prolonging agents - c/w ASA daily Morbid Obesity Hirsutism Pressure Ulcers, POA - SSI Q6H - Wound care notified Disposition Anticipated Discharge Date : 7+ days Barriers to Discharge: patient placement Flakito Gallo MD PGY-1 Neurology Pager number [phone] END OF DAILY PROGRESS NOTE Hospital Course: Vinnie Aguilera is a 43 year old morbidly obese female withOSA (noncompliant with BiPAP), severe pHTN,PFTs w/restrictive pattern (2013),chronic hypoxicrespiratory failure(on home3-4L O2 intermittently),Pickwickian syndrome, HTN, CHFpEF (TTE 09/23/19), chronic DUKE, menorrhagia, and tobacco/THC use disorderwho presented with acute on chronic hypercapnic and hypoxic RF. ABGs were significant for increasing acidosis which improved once intubated in the MICU. DVT ruled out on doppler and patient had intermediate wells score, thus CT PE not obtained. Patient was diuresed aggressively in the setting of acute on chronic HFpEF. Fevers developed 36-48 hours after intubation and patient was initially started on vanc + merrem for aspiration PNA, which was then de-escalated to Unasyn. Infectious workup negative and procal WNL. CBT trial failed twice. As patient could not be weaned off vent despite aggressive diuresis and completion of abx, tracheostomy tube was placed by ENT on 10/04/19. Fevers persisted, so GI was consulted as RUQ US demonstrated possible dilation of CBD. GI suggested fever less likely related to biliary source given normal LFTs. HIDA also negative for acute cholecystit is/biliary obstruction. Patient continued to spike fevers, sputum grew citrobacter koseri and ID wasconsulted. ID suspect fevers 2/2 hypersensitivity reaction likely to beta lactams. Abx discontinued and patient remained afebrile thereafter. Patient weaned off pressors and currently on minimal sedation. Tolerating trach trials throughout the day/night and saturating well. Family care conference held, plans to d/c home with 24/7 care from family members vs lyudmila placement. Patient then tolerated downsizing of trach to 6-0 shiley. Had severe anxiety on TTF, likely related to trach collar and Precedex Withdrawal. Improved on Clonazepam and will add Ramelteon. Added Metoprolol. D/c pepcid and addedpantoprazole. Remains in sinus tachy, CTPE showed scattered b/l PEs and possible RA thrombus seen onTTE, cards re engaged to assist with that. Started on heparin drip and coumadin for INR of 2-3. GI consulted for severe GERD on MBS, recommended outpatient endoscopy in 4-6 weeks from discharge asbarium swallow study was normal. Consulted Nuclear Instructor for Menorrhagia, Progesterone depot given. F/u OP Placement and funding remain a barrier to discharge Associated attestation - Alma Blevins MD - 11/07/2019 10:10 PM CDTI personally examined the patient on 11/07/[address] Gallo's resident note with the following addition(s): patient with depression/anxiety and unable to use SSRI therapy given prolonged QTc interval (was >500 ms and when stopped along with tramadol had decreased below 500 ms). For now will continue with BZD therapy. Focused echo with possible large mobile echogenic mass, at 2.8cm x1.9 cm in size that warrants further evaluation. Will reconsult with cardiology, who was previouslyinvolved in her care earlier in her hospitalization. Continue with UFH and VKA for PE. I actively participated in the decision-making process. Please see the resident's note for additional details. Kira June SLP - 11/07/2019 12:17 PM CDTSpeech-Language Pathology 11/07/2019 MBS scheduled for 1400. Patient must transport via stretcher for completion of study. RN notified. Will f/u with patient in radiology for completion of study. Kira June M.S. [facility]-SITE PROJECT MANAGER Speech-Language Pathologist Office: [phone] Pager: [phone] Bar Chan [facility] - 11/07/2019 11:09 AM CDTPharmacy Note for Warfarin Monitoring Pharmacy to monitor warfarin dosing for patient Vinnie Aguilera, [id number]. Indications: bilateral pulmonary emboli and possible right ventricular thrombi (CTA of the chest on 10/29/19); possible right atrial thrombi (TTE on 11/01/19) Goal INR: 2-3 Warfarin dosage prior to admission: none; warfarin initiated this hospitalization on 10/31/19 Most recent INR: 1.7 this morning Current warfarin dosage: 10 mg daily at 1700 Date INR Warfarin dose received 10/31/19 1.0 5 mg 11/01/19 1.0 5 mg 11/02/19 1.0 7.5 mg 11/03/19 1.0 10 mg (7.5 mg + 2.5 mg) 11/04/19 1.0 10 mg 11/05/19 1.3 10 mg 11/06/19 1.4 12.5 mg (10 mg + 2.5 mg) 11/07/19 1.7 Bridging anticoagulation: continuous infusion of heparin (initiated on 10/29/19) Assessment and Recommendations: 1. Ms. Aguilera's INR increased from 1.4 yesterday to 1.7 today after receiving an extra 2.5-mg dose of warfarin yesterday. Therefore, I would recommend continuing warfarin 10 mg daily at 1700 as currently ordered for today, 11/07/19. 2. Please continue to check Ms. Aguilera's INR daily. I will continue to follow the patient. Page me with any questions. Bar Marquez (Eddie) Pharm.D., [facility] Pager: [phone] signed by Bar Marquez [facility] at 11/07/2019 11:11 AM Danielle Santillan RN - 11/06/2019 4:37 PM CDTCM reached out to the following companies for ELISHA for humidified oxygen via trach collar @11LPM -[facility]- can only supply up to 10L -[facility]- can only supply up to 6L -[facility]- no 02 -[employer]- no ELISHA, need card on file - [facility]- do not supply the needed L of oxygen -[facility]- do not supply 02 -[facility]- sent ref, awaiting Danielle Vargasie" DARA Hanks-BSN Revenue Accountant [facility] Care Management (not for patient use) Office: [phone] [email or web address] Dustin Tyler Roberts, - 11/06/2019 7:44 AM CDT Adebayo Team Progress Note Date of Service: 11/06/2019 07:44 Date of Admission: 09/20/2019 Chief Complaint: dyspnea 24-HOUR EVENTS: - no acute events overnight SUBJECTIVE: Patient reports having a panic attack last night around 0400, felt that her trach was choking her. Otherwise has no new complaints. PHYSICAL EXAM: Vitals: 11/06/19 0432 11/06/19 0715 11/06/19 0725 11/06/19 0726 BP: BP Location: Patient Position: Pulse: 80 103 103 106 Resp: 18 16 16 16 Temp: TempSrc: SpO2: 98% 98% 98% 99% Weight: Height: General: alert and oriented x 4 (person, place, date/time and situation); no significant distress Lungs: upper airway transmitted sounds over anterior lung hirsch, tracheostomy in place Cardio: S1, S2 normal; no murmurs, rubs or gallops, regular rate and rhythm Abdomen: soft; non-tender; obese; normoactive bowel sounds Extremities: no clubbing, cyanosis, or edema. LABS/IMAGING - reviewed, pertinent results as below: lNR 1.4 ASSESSMENT/PLAN Vinnie Aguilera is a 43 year old female who was admitted to the hospital with: Bilateral pulmonary emboli Calcified nodules in R atrium x2 CT PE significant for bilateral pulmonary emboli and possible thrombi in right ventricle, patient started on heparin drip and bridging to warfarin. TTE showed 2 mobile masses that appeared calcified. No intervention needed at this time as patient is already receiving anticoagulation. - On heparin drip, coumadin started with goal 2-3 - EKG QAM - Per GI, no inpatient scope - Consider hypercoagulability panel OP given + FHx Chest Pain, resolved Has no further episodes of chest pain. Troponin negative, EKG remain unchanged. - Heparin Drip and Coumadin bumped to 10 + 2.5mg today HTN Anxiety Insomnia - continue with Clonazepam and Ramelteon - Metoprolol 12.5mg bid DUKE GERD Menoorrhagia Normal barium swallow, GI signed off, to follow-up in GI clinic in 4-6 weeks and needs casebook request for endoscopy. Consulted Nuclear Instructor to assist with Metrorrhagia. Will need f/u OP with IUD, Pap smear. - PPI BID - Progesterone depot given. Acute on Chronic Hypercapnic Hypoxic Respiratory Failure 2/2 Acute HFpEF Exacerbation and Untreated ETIENNE/OHS s/p tracheostomy (10/03)- on 3-4L O2 at home Toxic Metabolic Encephalopathy 2/2 Profound Hypercapnia Severe Pulmonary HTN Pickwickian Syndrome Morbid Obesity PFTs w/ Restrictive Pattern, not COPD (2013) - Suction Q4H and PRN, PCT TID - c/w Hypersal TID - c/w Duonebs Q6h - c/w mucomyst - f/u speech recs: remain NPO with NGT,free H2O protocol PRN for QOL - Mechanical soft diet with swallow precautions Anxiety Insomnia THC Use Disorder Tobacco Use Disorder - d/c paxil - klonipin 0.5 mg BID - avoid antipsychotics as patient does have prolonged QTc - PT/OT Acute on Chronic Diastolic HF HLD Prolonged QTc - c/w Bumex PO mg Q12 H - Strict I/O - avoid QTc prolonging agents - c/w ASA daily Morbid Obesity Hirsutism Pressure Ulcers, POA - SSI Q6H - Wound care notified Disposition Anticipated Discharge Date : 7+ days Barriers to Discharge: patient placement Tyler Marquez, DO PGY-2 [facility] [phone] ID #[id number] END OF DAILY PROGRESS NOTE Hospital Course: Vinnie Aguilera is a 43 year old morbidly obese female withOSA (noncompliant with BiPAP), severe pHTN,PFTs w/restrictive pattern (2013),chronic hypoxicrespiratory failure(on home3-4L O2 intermittently),Pickwickian syndrome, HTN, CHFpEF (TTE 09/23/19), chronic DUKE, menorrhagia, and tobacco/THC use disorderwho presented with acute on chronic hypercapnic and hypoxic RF. ABGs were significant for increasing acidosis which improved once intubated in the MICU. DVT ruled out on doppler and patient had intermediate wells score, thus CT PE not obtained. Patient was diuresed aggressively in the setting of acute on chronic HFpEF. Fevers developed 36-48 hours after intubation and patient was initially started on vanc + merrem for aspiration PNA, which was then de-escalated to Unasyn. Infectious workup negative and procal WNL. CBT trial failed twice. As patient could not be weaned off vent despite aggressive diuresis and completion of abx, tracheostomy tube was placed by ENT on 10/04/19. Fevers persisted, so GI was consulted as RUQ US demonstrated possible dilation of CBD. GI suggested fever less likely related to biliary source given normal LFTs. HIDA also negative for acute cholecystit is/biliary obstruction. Patient continued to spike fevers, sputum grew citrobacter koseri and ID wasconsulted. ID suspect fevers 2/2 hypersensitivity reaction likely to beta lactams. Abx discontinued and patient remained afebrile thereafter. Patient weaned off pressors and currently on minimal sedation. Tolerating trach trials throughout the day/night and saturating well. Family care conference held, plans to d/c home with 24/7 care from family members vs lyudmila placement. Patient then tolerated downsizing of trach to 6-0 shiley. Had severe anxiety on TTF, likely related to trach collar and Precedex Withdrawal. Improved on Clonazepam and will add Ramelteon. Added Metoprolol. D/c pepcid and addedpantoprazole. Remains in sinus tachy, CTPE showed scattered b/l PEs and possible RA thrombus. Started on heparin drip and will initiate coumadin for INR of 2-3. GI consulted for severe GERD on MBS, recommended outpatient endoscopy in 4-6 weeks from discharge asbarium swallow study was normal. Consulted Nuclear Instructor for Menorrhagia, Progesterone depot given. F/u OP Placement and funding remain a barrier to discharge Associated attestation - Alma Blevins MD - 11/06/2019 1:43 PM CDTI personally examined the patient on 11/06/[address] Marquez's resident note with the following addition(s): persistent stage II pressure ulcers, grossly unchanged from picture noted in mediadated 10/10/19. Will discuss with wound care nurse to re-evaluate. Additionally, TTE commented on at least tow mobile masses in the right atrium. Cardiology had previously seen the patient earlier inhospitalization - will ask them to re-evaluate and discuss further evaluation (SHAD if indicated) andtreatment discussion. Continue with UFH and VKA - not yet at therapeutic range. I actively participated in the decision- making process. Please see the resident's note for additional details. Bar Marquez, [facility] - 11/06/2019 6:02 AM CDTPharmacy Note for Warfarin Monitoring Pharmacy to monitor warfarin dosing for patient Vinnie Aguilera, [id number]. Indications: bilateral pulmonary emboli and possible right ventricular thrombi (CTA of the chest on 10/29/19); possible right atrial thrombi (TTE on 11/01/19) Goal INR: 2-3 Warfarin dosage prior to admission: none; warfarin initiated this hospitalization on 10/31/19 Most recent INR: 1.4 this morning Current warfarin dosage: 10 mg daily at 1700 Date INR Warfarin dose received 10/31/19 1.0 5 mg 11/01/19 1.0 5 mg 11/02/19 1.0 7.5 mg 11/03/19 1.0 10 mg (7.5 mg + 2.5 mg) 11/04/19 1.0 10 mg 11/05/19 1.3 10 mg 11/06/19 1.4 Bridging anticoagulation: continuous infusion of heparin (initiated on 10/29/19) Assessment and Recommendations: 1. Ms. Crespos INR only increased from 1.3 yesterday to 1.4 today despite receiving 10 mg of warfarin each day the past three days. Ms. Crespos hemoglobin is stable at 9.6 today. Therefore, I would recommend entering an order for warfarin 2.5 mg ONCE at 1700 today, 11/06/19, in addition to the alread y scheduled 10-mg dose of warfarin for today, for a total of 12.5 mg of warfarin at 1700 today, 11/06/19. 2. Please continue to check Ms. Aguilera's INR daily. I will continue to follow the patient. Page me with any questions. Bar Reese" Jimmy, Pharm.D., [facility] Pager: [phone] signed by Bar Marquez [facility] at 11/06/2019 6:04 AM Kira Jaimes, SITE PROJECT MANAGER - 11/05/2019 4:42 PM CDPEUNC [facility] Daily Progress Note - 11/05/2019 [id number] Vinnie Aguilera : 1975 Age: [age] year old Sex: female SUBJECTIVE: Patient alert/awake, agreeable to participate. She reports that has been thickening her liquids though she does not enjoy it. Per MD, patient requesting to eat chips. Patient reports she was able to tolerate regular-textured solids (i.e. [employer]) that her family brought her. OBJECTIVE: Vinnie Aguilera was seen for 1 SITE PROJECT MANAGER treatment session/s on this date. Treatment was provided due to dysphagia and dysphonia. Patientis a 43 year old female admittedfor management of acute on chronic hypercapnic and hypoxic respiratory failure. PMH significant forOSA, severe pHTN, PFTs w/ restrictive pattern (2013), chronic hypoxic RD (on 3-4L O2 intermittently), Pickwickian syndrome, HTN, CHFpEF, chronic Fe deficiency anemia, menorrhagia, tobacco abuse disorder, THC use disorder, and morbid obesity. Patient urgently intubated on 09/21/19 and unable to wean from vent despite aggressive diuresis and completion of antibiotics. ENT placed 8-0 XL Shiley on 10/04/19.Downsized to a 6-0 cufflessShiley on 10/22/19. MBS (10/28/19) Impressions: moderate-severe pharyngeal dysphagia; silent aspiration of thin liquid (PAS 8); intermittent flash penetration of nectar thick liquid; mild-moderate pharyngeal residue; significant esophageal retention with retrograde flow through the PES into the pharynx FEES (10/22/19) Impressions: severe pharyngeal dysphagia; intermittently silent aspiration of secretions, ice chips, and nectar thick liquids (PAS 7-8); deep penetration (PAS 5) and possible aspiration of puree (PAS 5, ?7-8); mild- moderate diffuse pharyngeal residue; suspected reflux Progress on short term goals was as follows: Swallowing: - Patient will tolerate the safest, least restricted po diet texture without overt s/sx of aspiration or other negative effects on medical condition: Patient accepted sips of nectar-thick water and bites of regular solids with no coughing/choking, throat clearing, or overt change (i.e wet/gurgled) in vocal quality observed. Most recent CXR on 10/31 showed "no focal infiltration to suggest pneumonia". Temp (24hrs), Av.7 C (98 F), Min:35.8 C (96.5 F), Max:37.2 C (98.9 F). No current WBC. (progressing, continue goal) - Patient will demonstrate adherence to swallowing precautions while eating a meal/snack with minimal cues 80% of the time: (goal met 11/01/19) - Patient will complete base of tongue, strap muscle, and airway protection exercises with minimal cues 80% of the time: Patient completed base of tongue, strap muscle, and airway protection exercises accurately with min-mod cues, 5x each. She was instructed to complete exercises 3x per day, 10x each and verbalized understanding (progressing, continue goal) Voice: - Patient will tolerate speaking valve placement and achieve functional voicing without significant change in baseline monitors for 30+ minutes: (goal met 11/04/19) - Patient will independently place and remove speaking valve: (goal met 11/04/19) - Patient will independently state 3 safety precautions for use of the speaking valve: (goal met 11/04/19) ASSESSMENT: Vinnie Aguilera demonstrated progress on the above listed dysphagia goals, presenting with a moderate-severe pharyngeal dysphagia in the setting of compromised respiratory status s/p tracheostomy with impairments in both airway protection and pharyngeal efficiency. MBS on 10/27 showed silent aspiration of thin liquid and mild-moderate pharyngeal residue as well as significant reflux. Patient appears to be tolerating PO diet as recommended with no overt s/sx of aspiration observed this date, though aspiration cannot be confirmed nor ruled out at bedside. Most recent chest imaging showed no "infiltrate to suggest pneumonia" and patient is afebrile. Patient participated well with dysphagia exercises and is agreeable to recommended regimen. As patient tolerating po intake of regular-textured solids without observed/reported s/sx of aspiration, she appears grossly safe to advance diet with continued adherence to liquid modifications and swallow precautions. Patient continues to tolerate speaking valve without significant changes in baseline monitors or complaints or s/sx of distress, discomfort, or dyspnea. Patient would benefit from continued SITE PROJECT MANAGER services while in-house for management of dysphagia. PLAN: 1. Recommend patient advance to a regular-textured diet and continue with nectar-thick liquids and swallow precautions: sit fully upright/chair, small single sips/bites, alternate sips/bites, remain upright for 30 minutes after meals and swallow 2-3x per bite/sip - To thicken liquids, add 1 pk of ThickenUp Clear to every 4 oz of liquids. - Thickener will not come up on meal tray. Please order from [employer] if not stored in Hands on unit. - Note: pre-packaged tea from kitchen is a 6 oz cup and requires 1.5 pks of thickener. 2. Recommend elevated head of bed and frequent, thorough oral hygiene care due to risk for aspiration. 4. Recommend patient be closely monitored for s/sx of aspiration or signs of a developing respiratory infection (i.e. Throat clearing/coughing with po, wet/gurgled voice, fever spikes 30-60 mins after meals, increased chest congestion, leukocytosis, etc.). If observed or suspected, recommend patient be made NPO until re-assessed by SITE PROJECT MANAGER. 5. Recommend SITE PROJECT MANAGER therapy 2-5x/wk for 15-45 min/session to address the above goals and for repeat imaging to potentially upgrade patient to thin liquids in the coming days. If patient discharges to LTACit can also be completed there. Kira June M.S. [facility]-SITE PROJECT MANAGER Speech-Language Pathologist Office: [phone] Pager: [phone] Lili Conrad LBSW - 11/05/2019 4:19 PM CDTPatient Manager Monitoring Note: Assisted patient with completing the Casebook application. Emailed copy of application and some supporting documents to Casebook Coordinator on this day. Patient is aware of the remaining documents that are still needed by the Casebook Coordinator and how to get them to the CC. Will provide additional assistance as needed. Lili Smith M.Ed., [facility] Patient Manager Monitoring [facility] [phone] Emily Merrill PTA - 11/05/2019 2:53 PM CDTPhysical Therapy Progress Note: Discharge Recommendations: Therapy Needs and Potential: Patient would benefit from continued physical therapy services to address: decline in bed mobility decline in transfers decline in gait and/or balance decreased strength decreased range of motion decreased endurance Challenges to Home Transition: increased risk of falls decreased caregiver availability decreased safety awareness Equipment recommendations: wheelchair, hospital bed and mechanical lift PAIN: -Pain Location: L knee -Pain rating before treatment: 0, After treatment: 5 -Pain Management: Nursing Notified PRECAUTIONS: Weight Bearing Precaution:WBAT General Precautions:PPE used:Gloves and Surgical mask, General, Fall, oxygen:Trach collar Bracing/Cast present or required:N/A S: Patient agreeable to working with PT. O: Patient met Semi reclined in bed. Patient seen for the following: Bed mobility: Rolling: Maximal assist cued patient on body mechanics Transfers: dependent transfer from bed to chair via Vanessa lift Therapeutic exercise: patient educated in Energy conservation, Fall prevention, General strengthening, Positioning, Relaxation/breathing techniques and Safety awareness., instructed patient in the following: ankle pumps,quad sets, glut sets, heel slides, patient/caregiver verbalizes understanding of instructions. After session, patient Up in chair with Vanessa sling beneath and call fields provided. A: Patient tolerated session fair. Patient progressing toward goals . P: PT will - progress mobility. Total Timed Tx Codes in Minutes: 60 Min Total Treatment Time in Minutes: 60 Min Emily Parsons PTA Pager #: [phone] Supervising PT Beatrice Bansal Thania Bautista OTA - 11/05/2019 1:51 PM CDTOCCUPATIONAL THERAPY NOTE: Discharge Recommendations: Therapy Needs and Potential:- Patient would benefit from continued skilled occupational therapy services to address: Decline in basic activities of daily living, Decline in instrumental activities of daily living, Decreased strength, Decreased range of motion, Decreased endurance and Caregiver training - Patient demonstrates good potential to improve and meet therapy goals with further skilled occupational therapy services. - Patient appears motivated to improve their B/IADLs and return to their previous level of function. Challenges to Home Transition:- Requires physical assistance for BADLS - Requires physical assistance for IADLS - Increased risk of falls - Environmental barriers Equipment Recommendations:bariatric BSC, WC, Hospital Bed, and Vanessa Lift Precautions: WB: NA General: PPE Utilized: Gloves and Surgical mask, Fall, Morbid obesity and aerosol trach Bracing: N/A S: Patient agreeable to participate in occupational therapy. patient is awake and alert and eager toget out of bed into chair. Patient seen in conjunction with OCCUP THER due to the amount of assistance patient requires. PAIN Patient did not rate pain, however did state that her left knee hurts at times. O: Patient found semireclining in bed. pt requesting to get out of bed and into bedside chair. Patient seen this date for the following: ADL Training rolling L >< R mod-max assist to get vanessa sling placed under her for transfer Feeding: modified independent with all items within reach Grooming: SBA/Setup limited L shoulder flex UB Dressing: Maximal assist. Patient with decreased dynamic sitting balance Patient educated about the following adaptive equipment: hospital bed , Long handled red hat engineer, Mechanical lift. Patient stated that she needs to be up and walking before she can return home. Patient stated that she must be able to ambulate into and out of her bathroom. Patient educated about fall prevention and safety awareness. GOLDBERG observed and analyzed patient's body mechanics thru out session, especially during transitional movements and ADL mobility and offered recommendations to improve techniques to reduce patient's fall risk and increase patient's overall safety and independence during ADLs. Therapeutic Exercise/Procedure Patient seen for Towel/dowel and General strengthening : Patient performed Shoulder flexion/extension, Shoulder abduction/adduction, Elbow flexion/extension and Wrist flexion/extension, Patient completed 2 sets of 12 reps, Patient required tactile and/or verbal cueing to perform exercises with correct technique Patient/caregiver returns demonstration x 12 repetitions as follows: Tactile and verbal cues provided for correct technique. Patient left sitting upright in bedside chair with call fields in reach. resting comfortably with all needs met. A: Patient exhibited Fair participation in therapy and responded well to treatment this session. Patient is progressing toward goal(s) 2, 4, 6 and 7. Pain, Poor endurance and morbid obesity remain(s) alimiting factor. P: Daily living activities and Therapeutic exercises to maximize patient's safety and independence with BADLs. ASHLYN Bautitsa Pager [phone] Supervising OTR: Charlotte Kim Total Timed Treatment Codes: 60 Min Total Treatment Time: 60 Min Flakito Stahl MD - 11/05/2019 8:38 AM CDT PGY-1 [facility] Team Progress Note Date of Service: 11/05/2019 08:38 Date of Admission: 09/20/2019 Chief Complaint: dyspnea 24-HOUR EVENTS: NAEON SUBJECTIVE: No new complaints. In NAD. PHYSICAL EXAM: Vitals: 11/05/19 0045 11/05/19 0313 11/05/19 0718 11/05/19 0831 BP: 118/76 118/80 117/81 BP Location: Right arm Patient Position: Pulse: 92 87 88 91 Resp: 18 18 18 18 Temp: 36.9 C (98.4 F) 37.2 C (98.9 F) 36.4 C (97.6 F) TempSrc: Oral Oral Oral SpO2: 96% 91% 94% 91% Weight: Height: General: alert and oriented x 4 (person, place, date/time and situation); no significant distress Lungs: upper airway transmitted sounds over anterior lung hirsch, tracheostomy in place with white secretions Cardio: S1, S2 normal; no murmurs, rubs or gallops, regular rate and rhythm Abdomen: soft; non-tender; obese; normoactive bowel sounds Extremities: no clubbing, cyanosis, or edema. Left wrist ulceration noted LABS/IMAGING - reviewed, pertinent results as below: lNR 1.3 QRS: 498 ASSESSMENT/PLAN Vinnie Aguilera is a 43 year old female who was admitted to the hospital with: Bilateral pulmonary emboli Suspicious areas of thrombi in right ventricle CT PE significant for bilateral pulmonary emboli and possible thrombi in right ventricle, patient started on heparin drip yesterday, will eventually need bridge to warfarin. Obtaining TTE for further characterization of cardiac thrombi. - On heparin drip, coumadin started with goal 2-3 - EKG QAM - Per GI, no inpatient scope - Consider hypercoagulability panel OP given + FHx Chest Pain: Patient with possible RA thrombus, multiple PEs. Complained of chest discomfort, squeezing in nature. EKG with sinus rhythm, QRS 110ms. - F/u troponins - F/u TTE - Heparin Drip and Coumadin bumped to 10 HTN Anxiety Insomnia - continue with Clonazepam and Ramelteon - Metoprolol 25 DUKE GERD Menoorrhagia Normal barium swallow, GI signed off, to follow-up in GI clinic in 4-6 weeks and needs casebook request for endoscopy. Consulted Nuclear Instructor to assist with Metrorrhagia. Will need f/u OP with IUD, Pap smear. - PPI BID - Progesterone depot given. Acute on Chronic Hypercapnic Hypoxic Respiratory Failure 2/2 Acute HFpEF Exacerbation and Untreated ETIENNE/OHS s/p tracheostomy (10/03)- on 3-4L O2 at home Toxic Metabolic Encephalopathy 2/2 Profound Hypercapnia Severe Pulmonary HTN Pickwickian Syndrome Morbid Obesity PFTs w/ Restrictive Pattern, not COPD (2013) - Suction Q4H and PRN, PCT TID - c/w Hypersal TID - c/w Duonebs Q6h - c/w mucomyst - f/u speech recs: remain NPO with NGT,free H2O protocol PRN for QOL - Mechanical soft diet with swallow precautions Anxiety Insomnia THC Use Disorder Tobacco Use Disorder - d/c paxil - klonipin 0.5 mg BID - avoid antipsychotics as patient does have prolonged QTc - PT/OT Acute on Chronic Diastolic HF HLD Prolonged QTc - c/w Bumex PO mg Q12 H - Strict I/O - avoid QTc prolonging agents - c/w ASA daily Morbid Obesity Hirsutism Pressure Ulcers, POA - SSI Q6H - Wound care notified Disposition Anticipated Discharge Date : 7+ days Barriers to Discharge: patient placement Flakito Gallo MD PGY-1 Neurology Pager number [phone] END OF DAILY PROGRESS NOTE Hospital Course: Vinnie Aguilera is a 43 year old morbidly obese female withOSA (noncompliant with BiPAP), severe pHTN,PFTs w/restrictive pattern (2013),chronic hypoxicrespiratory failure(on home3-4L O2 intermittently),Pickwickian syndrome, HTN, CHFpEF (TTE 09/23/19), chronic DUKE, menorrhagia, and tobacco/THC use disorderwho presented with acute on chronic hypercapnic and hypoxic RF. ABGs were significant for increasing acidosis which improved once intubated in the MICU. DVT ruled out on doppler and patient had intermediate wells score, thus CT PE not obtained. Patient was diuresed aggressively in the setting of acute on chronic HFpEF. Fevers developed 36-48 hours after intubation and patient was initially started on vanc + merrem for aspiration PNA, which was then de-escalated to Unasyn. Infectious workup negative and procal WNL. CBT trial failed twice. As patient could not be weaned off vent despite aggressive diuresis and completion of abx, tracheostomy tube was placed by ENT on 10/04/19. Fevers persisted, so GI was consulted as RUQ US demonstrated possible dilation of CBD. GI suggested fever less likely related to biliary source given normal LFTs. HIDA also negative for acute cholecystit is/biliary obstruction. Patient continued to spike fevers, sputum grew citrobacter koseri and ID wasconsulted. ID suspect fevers 2/2 hypersensitivity reaction likely to beta lactams. Abx discontinued and patient remained afebrile thereafter. Patient weaned off pressors and currently on minimal sedation. Tolerating trach trials throughout the day/night and saturating well. Family care conference held, plans to d/c home with 24/7 care from family members vs lyudmila placement. Patient then tolerated downsizing of trach to 6-0 shiley. Had severe anxiety on TTF, likely related to trach collar and Precedex Withdrawal. Improved on Clonazepam and will add Ramelteon. Added Metoprolol. D/c pepcid and addedpantoprazole. Remains in sinus tachy, CTPE showed scattered b/l PEs and possible RA thrombus. Started on heparin drip and will initiate coumadin for INR of 2-3. GI consulted for severe GERD on MBS, recommended outpatient endoscopy in 4-6 weeks from discharge asbarium swallow study was normal. Consulted Nuclear Instructor for Menorrhagia, Progesterone depot given. F/u OP Placement and funding remain a barrier to discharge Associated attestation - Alma Blevins MD - 11/05/2019 1:51 PM CDTI personally examined the patient on 11/05/[address] Gallo's resident note with the following addition(s): continue with UFH gtt and VKA for new VTE while monitoring Hgb given menorrhagia. Will need to stay in the hospital until becomes therapeutic and will benefit from LTAC... Given unfunded status, will discuss future placement options with career services officer. I actively participated in the decision-making process. Please see the resident's note for additional details. Bar Marquez [facility] - 11/05/2019 6:20 AM CDTPharmacy Note for Warfarin Monitoring Pharmacy to monitor warfarin dosing for patient Vinnie Aguilera, [id number]. Indications: bilateral pulmonary emboli and possible right ventricular thrombi (CTA of the chest on 10/29/19) Goal INR: 2-3 Warfarin dosage prior to admission: none; warfarin initiated this hospitalization on 10/31/19 Most recent INR: 1.3 this morning Current warfarin dosage: 10 mg daily at 1700 Date INR Warfarin dose received 10/31/19 1.0 5 mg 11/01/19 1.0 5 mg 11/02/19 1.0 7.5 mg 11/03/19 1.0 10 mg (7.5 mg + 2.5 mg) 11/04/19 1.0 10 mg 11/05/19 1.3 Bridging anticoagulation: continuous infusion of heparin (initiated on 10/29/19) Assessment and Recommendations: 1. Ms. Aguilera's INR increased from 1.0 yesterday to 1.3 today, an appropriate increase in INR from one day to the next after receiving 10 mg of warfarin each day the past two days. Therefore, I would recommend continuing warfarin 10 mg daily at 1700 as currently ordered for today, 11/05/19. 2. Please continue to check Ms. Aguilera's INR daily. I will continue to follow the patient. Page me with any questions. Bar Marquez (Eddie), Pharm.D., [facility] Pager: [phone] signed by Bar Marquez RPH at 11/05/2019 6:22 AM Veronika Almanza, SITE PROJECT MANAGER - 11/04/2019 1:[address] [facility] LANGUAGE PATHOLOGY Daily Progress Note - 11/04/2019 [id number] Vinnie Aguilera : 1975 Age: [age] year old Sex: female SUBJECTIVE: Patient alert/awake, agreeable to participate. She reports that has been thickening her liquids though she does not enjoy it. OBJECTIVE: Vinnie Aguilera was seen for 1 SITE PROJECT MANAGER treatment session/s on this date. Treatment was provided due to dysphagia and dysphonia. Patientis a 43 year old female admittedfor management of acute on chronic hypercapnic and hypoxic respiratory failure. PMH significant forOSA, severe pHTN, PFTs w/ restrictive pattern (2013), chronic hypoxic RD (on 3-4L O2 intermittently), Pickwickian syndrome, HTN, CHFpEF, chronic Fe deficiency anemia, menorrhagia, tobacco abuse disorder, THC use disorder, and morbid obesity. Patient urgently intubated on 09/21/19 and unable to wean from vent despite aggressive diuresis and completion of antibiotics. ENT placed 8-0 XL Shiley on 10/04/19.Downsized to a 6-0 cufflessShiley on 10/22/19. MBS (10/28/19) Impressions: moderate-severe pharyngeal dysphagia; silent aspiration of thin liquid (PAS 8); intermittent flash penetration of nectar thick liquid; mild-moderate pharyngeal residue; significant esophageal retention with retrograde flow through the PES into the pharynx FEES (10/22/19) Impressions: severe pharyngeal dysphagia; intermittently silent aspiration of secretions, ice chips, and nectar thick liquids (PAS 7-8); deep penetration (PAS 5) and possible aspiration of puree (PAS 5, ?7-8); mild- moderate diffuse pharyngeal residue; suspected reflux Progress on short term goals was as follows: Swallowing: - Patient will tolerate the safest, least restricted po diet texture without overt s/sx of aspiration or other negative effects on medical condition: Patient accepted sips of nectar-thick water and bites of soft solids with no coughing/choking, throat clearing, or overt change (i.e wet/gurgled) in vocal quality observed. Most recent CXR on 10/31 showed "no focal infiltration to suggest pneumonia". Temp (48hrs), Av.9 C (98.4 F), Min:36.6 C (97.9 F), Max:37.1 C (98.7 F). - Leukocytosis (progressing, continue goal) - Patient will demonstrate adherence to swallowing precautions while eating a meal/snack with minimal cues 80% of the time: (goal met 11/01/19) - Patient will complete base of tongue, strap muscle, and airway protection exercises with minimal cues 80% of the time: Patient completed base of tongue, strap muscle, and airway protection exercises accurately with min-mod cues, 5x each. She was instructed to complete exercises 3x per day, 10x each and verbalized understanding (progressing, continue goal) Voice: - Patient will tolerate speaking valve placement and achieve functional voicing without significant change in baseline monitors for 30+ minutes: Patient tolerated speaking valve for entire session without change in baseline monitors or complaints or s/sx of distress, discomfort, or dyspnea. She was able to achieve clearer and stronger phonation with speaking valve (goal re-initiated today and met) - Patient will independently place and remove speaking valve: Patient placed and removed speaking valve without apparent difficulty though required verbal reminder/min cue to use two hands (goal re-initiated today and met) - Patient will independently state 3 safety precautions for use of the speaking valve: (goal met 11/01/19) ASSESSMENT: Vinnie Aguilera demonstrated progress on the above listed dysphagia goals, presenting with a moderate-severe pharyngeal dysphagia in the setting of compromised respiratory status s/p tracheostomy with impairments in both airway protection and pharyngeal efficiency. MBS on 10/27 showed silent aspiration of thin liquid and mild-moderate pharyngeal residue as well as significant reflux. Patient appears to be tolerating PO diet as recommended with no overt s/sx of aspiration observed this date, though aspiration cannot be confirmed nor ruled out at bedside. Most recent chest imaging showed no "infiltrate to suggest pneumonia" and patient is afebrile with no leukocytosis. Patient participated well with dysphagia exercises and is agreeable to recommended regimen. Patient met the above listed voice goals, presenting with dysphonia in the setting of recent tracheostomy. Patient tolerated speaking valve without significant changes in baseline monitors or complaints or s/sx of distress, discomfort, or dyspnea. She was able to don/doff speaking valve and demonstrates good understanding of all recommended precautions. Patient would benefit from continued SITE PROJECT MANAGER services while in-house for management of dysphagia. PLAN: 1. Recommend patient continue a mechanical soft-textured diet with nectar-thick liquids and swallow precautions: sit fully upright/chair, small single sips/bites, alternate sips/bites, remain upright for 30 minutes after meals and swallow 2-3x per bite/sip - To thicken liquids, add 1 pk of ThickenUp Clear to every 4 oz of liquids. - Thickener will not come up on meal tray. Please order from [employer] if not stored in [employer] on unit. - Note: pre-packaged tea from kitchen is a 6 oz cup and requires 1.5 pks of thickener. 2. Recommend elevated head of bed and frequent, thorough oral hygiene care due to risk for aspiration. 4. Recommend patient be closely monitored for s/sx of aspiration or signs of a developing respiratory infection (i.e. Throat clearing/coughing with po, wet/gurgled voice, fever spikes 30-60 mins after meals, increased chest congestion, leukocytosis, etc.). If observed or suspected, recommend patient be made NPO until re-assessed by SITE PROJECT MANAGER. 5. Recommend SITE PROJECT MANAGER therapy 2-5x/wk for 15-45 min/session to address the above goals and for repeat imaging to potentially upgrade patient to thin liquids next week. If patient discharges to LTAC it can also be completed there. Veronika Huber MS, [facility]-SITE PROJECT MANAGER Speech Language Pathology Pager: [phone] Office Number: [phone] signed by Veronika Huber, SITE PROJECT MANAGER at 11/04/2019 2:04 PM Flakito Stahl MD - 11/04/2019 8:25 AM CDT PGY-1 Adebayo Team Progress Note Date of Service: 11/04/2019 08:25 Date of Admission: 09/20/2019 Chief Complaint: dyspnea 24-HOUR EVENTS: NAEON SUBJECTIVE: Complained of heavy periods with cramping. Otherwise, no acute issues PHYSICAL EXAM: Vitals: 11/04/19 0424 11/04/19 0628 11/04/19 0638 11/04/19 0818 BP: 126/79 123/81 BP Location: Left arm Patient Position: Sitting Sitting Pulse: 88 90 97 83 Resp: 19 22 20 20 Temp: 37.1 C (98.7 F) 36.6 C (97.9 F) TempSrc: Oral Oral SpO2: 96% 94% 96% 99% Weight: Height: General: alert and oriented x 4 (person, place, date/time and situation); no significant distress Lungs: upper airway transmitted sounds over anterior lung hirsch, tracheostomy in place with white secretions Cardio: S1, S2 normal; no murmurs, rubs or gallops, regular rate and rhythm Abdomen: soft; non-tender; obese; normoactive bowel sounds Extremities: no clubbing, cyanosis, or edema. Left wrist ulceration noted LABS/IMAGING - reviewed, pertinent results as below: Mag 1.6, repleted Troponin negative lNR 1 TTE: A two-dimensional transthoracic echocardiogram with M-mode and Doppler was performed. The study was technically limited. Limited image quality. Left ventricular systolic function is normal. Ejection Fraction = 55-60%.Dilated RV. Flattened septum is consistent with RV pressure/volume overload. Right ventricular systolic pressure is elevated at >60mmHg.There is severe pulmonary hypertension. ASSESSMENT/PLAN Vinnie Aguilera is a 43 year old female who was admitted to the hospital with: Bilateral pulmonary emboli Suspicious areas of thrombi in right ventricle CT PE significant for bilateral pulmonary emboli and possible thrombi in right ventricle, patient started on heparin drip yesterday, will eventually need bridge to warfarin. Obtaining TTE for further characterization of cardiac thrombi, may need SHAD. - heparin gtt - EKG QAM - Per GI, no inpatient scope - On heparin drip, coumadin started with goal 2-3 - Consider hypercoagulability panel OP given + FHx Chest Pain: Patient with possible RA thrombus, multiple PEs. Complained of chest discomfort, squeezing in nature. EKG with sinus rhythm, QRS 110ms. - F/u troponins - F/u TTE - Heparin Drip and Coumadin bumped to 10 HTN Anxiety Insomnia - continue with Clonazepam and Ramelteon - Metoprolol 25 - d/c fluoxetine DUKE GERD Normal barium swallow, GI signed off, to follow-up in GI clinic in 4-6 weeks and needs casebook request for endoscopy. - PPI BID Acute on Chronic Hypercapnic Hypoxic Respiratory Failure 2/2 Acute HFpEF Exacerbation and Untreated ETIENNE/OHS s/p tracheostomy (10/03)- on 3-4L O2 at home Toxic Metabolic Encephalopathy 2/2 Profound Hypercapnia Severe Pulmonary HTN Pickwickian Syndrome Morbid Obesity PFTs w/ Restrictive Pattern, not COPD (2013) - Suction Q4H and PRN, PCT TID - c/w Hypersal TID - c/w Duonebs Q6h - c/w mucomyst - f/u speech recs: remain NPO with NGT,free H2O protocol PRN for QOL - Mechanical soft diet with swallow precautions Anxiety Insomnia THC Use Disorder Tobacco Use Disorder - d/c paxil - klonipin 0.5 mg BID - avoid antipsychotics as patient does have prolonged QTc - PT/OT Acute on Chronic Diastolic HF HLD Prolonged QTc - c/w Bumex PO mg Q12 H - Strict I/O - avoid QTc prolonging agents - c/w ASA daily Morbid Obesity Hirsutism Pressure Ulcers, POA - SSI Q6H - Wound care notified Disposition Anticipated Discharge Date : 7+ days Barriers to Discharge: patient placement Flakito Gallo MD PGY-1 Neurology Pager number [phone] END OF DAILY PROGRESS NOTE Hospital Course: Vinnie Aguilera is a 43 year old morbidly obese female withOSA (noncompliant with BiPAP), severe pHTN,PFTs w/restrictive pattern (2013),chronic hypoxicrespiratory failure(on home3-4L O2 intermittently),Pickwickian syndrome, HTN, CHFpEF (TTE 09/23/19), chronic DUKE, menorrhagia, and tobacco/THC use disorderwho presented with acute on chronic hypercapnic and hypoxic RF. ABGs were significant for increasing acidosis which improved once intubated in the MICU. DVT ruled out on doppler and patient had intermediate wells score, thus CT PE not obtained. Patient was diuresed aggressively in the setting of acute on chronic HFpEF. Fevers developed 36-48 hours after intubation and patient was initially started on vanc + merrem for aspiration PNA, which was then de-escalated to Unasyn. Infectious workup negative and procal WNL. CBT trial failed twice. As patient could not be weaned off vent despite aggressive diuresis and completion of abx, tracheostomy tube was placed by ENT on 10/04/19. Fevers persisted, so GI was consulted as RUQ US demonstrated possible dilation of CBD. GI suggested fever less likely related to biliary source given normal LFTs. HIDA also negative for acute cholecystit is/biliary obstruction. Patient continued to spike fevers, sputum grew citrobacter koseri and ID wasconsulted. ID suspect fevers 2/2 hypersensitivity reaction likely to beta lactams. Abx discontinued and patient remained afebrile thereafter. Patient weaned off pressors and currently on minimal sedation. Tolerating trach trials throughout the day/night and saturating well. Family care conference held, plans to d/c home with 24/7 care from family members vs lyudmila placement. Patient then tolerated downsizing of trach to 6-0 shiley. Had severe anxiety on TTF, likely related to trach collar and Precedex Withdrawal. Improved on Clonazepam and will add Ramelteon. Added Metoprolol. D/c pepcid and addedpantoprazole. Remains in sinus tachy, CTPE showed scattered b/l PEs and possible RA thrombus. Started on heparin drip and will initiate coumadin for INR of 2-3. GI consulted for severe GERD on MBS, recommended outpatient endoscopy in 4-6 weeks from discharge asbarium swallow study was normal. Placement and funding remain a barrier to discharge Associated attestation - Alma Blevins MD - 11/04/2019 3:02 PM CDTI personally examined the patient on 11/04/[address] Gallo's resident note with the following addition(s): patient with a new problem of menorrhagia requiring blood transfusions in the past. She reports she was offered a hysterectomy by gynecology for treatment. Further complicates thisis her need for AC given acute PE. Will continue with UFH and warfarin, monitor h/h, and consult gynecology to assess and help treat menorrhagia in the setting of thrombosis. I actively participated in the decision-making process. Please see the resident's note for additional details. Bar Marquez RP - 11/04/2019 7:27 AM CDTPharmacy Note for Warfarin Monitoring Pharmacy to monitor warfarin dosing for patient Vinnie Aguilera, [id number]. Indications: bilateral pulmonary emboli and possible right ventricular thrombi (CTA of the chest on 10/29/19) Goal INR: 2-3 Warfarin dosage prior to admission: none; warfarin initiated this hospitalization on 10/31/19 Most recent INR: 1.0 this morning Current warfarin dosage: 7.5 mg daily at 1700 Date INR Warfarin dose received 10/31/19 1.0 5 mg 11/01/19 1.0 5 mg 11/02/19 1.0 7.5 mg 11/03/19 1.0 10 mg (7.5 mg + 2.5 mg) 11/04/19 1.0 Bridging anticoagulation: continuous infusion of heparin (initiated on 10/29/19) Assessment and Recommendations: 1. Ms. Aguilera's INR remains 1.0 today despite receiving an extra 2.5 mg of warfarin yesterday. Therefore, I would recommend increasing warfarin from 7.5 mg daily at 1700 as currently ordered to 10 mg daily at 1700 beginning today, 11/04/19. 2. Please continue to check Ms. Aguilera's INR daily. I will continue to follow the patient. Page me with any questions. Bar Marquez (Eddie), Pharm.D., [facility] Pager: [phone] signed by Bar Marquez [facility] at 11/04/2019 7:29 AM Flakito Stahl MD - 11/03/2019 8:19 AM CDT PGY-1 Adebayo Team Progress Note Date of Service: 11/03/2019 08:19 Date of Admission: 09/20/2019 Chief Complaint: dyspnea 24-HOUR EVENTS: NAEON SUBJECTIVE: Beverly well, had a BM yesterday. Improved breathing. Had some headache that responded to T3s PHYSICAL EXAM: Vitals: 11/03/19 0445 11/03/19 0635 11/03/19 0645 11/03/19 0710 BP: 116/71 122/75 BP Location: Right arm Right arm Patient Position: Sitting Sitting Pulse: 97 100 103 93 Resp: Temp: 37.1 C (98.7 F) 36.8 C (98.2 F) TempSrc: Oral Oral SpO2: 96% 98% 96% 92% Weight: Height: General: alert and oriented x 4 (person, place, date/time and situation); no significant distress Lungs: upper airway transmitted sounds over anterior lung hirsch, tracheostomy in place with white secretions Cardio: S1, S2 normal; no murmurs, rubs or gallops, regular rate and rhythm Abdomen: soft; non-tender; obese; normoactive bowel sounds Extremities: no clubbing, cyanosis, or edema. Left wrist ulceration noted LABS/IMAGING - reviewed, pertinent results as below: Mag 1.6, repleted Troponin negative lNR 1 TTE: A two-dimensional transthoracic echocardiogram with M-mode and Doppler was performed. The study was technically limited. Limited image quality. Left ventricular systolic function is normal. Ejection Fraction = 55-60%.Dilated RV. Flattened septum is consistent with RV pressure/volume overload. Right ventricular systolic pressure is elevated at >60mmHg.There is severe pulmonary hypertension. ASSESSMENT/PLAN Vinnie Aguilera is a 43 year old female who was admitted to the hospital with: Bilateral pulmonary emboli Suspicious areas of thrombi in right ventricle CT PE significant for bilateral pulmonary emboli and possible thrombi in right ventricle, patient started on heparin drip yesterday, will eventually need bridge to warfarin. Obtaining TTE for further characterization of cardiac thrombi, may need SHAD. - TTE pending - heparin gtt - EKG QAM - Per GI, no inpatient scope, will consider starting coumadin - Consider hypercoagulability panel given + FHx Chest Pain: Patient with possible RA thrombus, multiple PEs. Complained of chest discomfort, squeezing in nature. EKG with sinus rhythm, QRS 110ms. - F/u troponins - F/u TTE - Heparin Drip and Coumadin bumped to 7.5 HTN Anxiety Insomnia - continue with Clonazepam and Ramelteon - Metoprolol 25 - d/c fluoxetine DUKE GERD Normal barium swallow, GI signed off, to follow-up in GI clinic in 4-6 weeks and needs casebook request for endoscopy. - PPI BID Acute on Chronic Hypercapnic Hypoxic Respiratory Failure 2/2 Acute HFpEF Exacerbation and Untreated ETIENNE/OHS s/p tracheostomy (10/03)- on 3-4L O2 at home Toxic Metabolic Encephalopathy 2/2 Profound Hypercapnia Severe Pulmonary HTN Pickwickian Syndrome Morbid Obesity PFTs w/ Restrictive Pattern, not COPD (2013) - Suction Q4H and PRN, PCT TID - c/w Hypersal TID - c/w Duonebs Q6h - c/w mucomyst - f/u speech recs: remain NPO with NGT,free H2O protocol PRN for QOL - Mechanical soft diet with swallow precautions Anxiety Insomnia THC Use Disorder Tobacco Use Disorder - d/c paxil - klonipin 0.5 mg BID - avoid antipsychotics as patient does have prolonged QTc - PT/OT Acute on Chronic Diastolic HF HLD Prolonged QTc - c/w Bumex PO mg Q12 H - Strict I/O - avoid QTc prolonging agents - c/w ASA daily Morbid Obesity Hirsutism Pressure Ulcers, POA - SSI Q6H - Wound care notified Disposition Anticipated Discharge Date : 7+ days Barriers to Discharge: patient placement Flakito Gallo MD PGY-1 Neurology Pager number [phone] END OF DAILY PROGRESS NOTE Hospital Course: Vinnie Aguilera is a 43 year old morbidly obese female withOSA (noncompliant with BiPAP), severe pHTN,PFTs w/restrictive pattern (2013),chronic hypoxicrespiratory failure(on home3-4L O2 intermittently),Pickwickian syndrome, HTN, CHFpEF (TTE 09/23/19), chronic DUKE, menorrhagia, and tobacco/THC use disorderwho presented with acute on chronic hypercapnic and hypoxic RF. ABGs were significant for increasing acidosis which improved once intubated in the MICU. DVT ruled out on doppler and patient had intermediate wells score, thus CT PE not obtained. Patient was diuresed aggressively in the setting of acute on chronic HFpEF. Fevers developed 36-48 hours after intubation and patient was initially started on vanc + merrem for aspiration PNA, which was then de-escalated to Unasyn. Infectious workup negative and procal WNL. CBT trial failed twice. As patient could not be weaned off vent despite aggressive diuresis and completion of abx, tracheostomy tube was placed by ENT on 10/04/19. Fevers persisted, so GI was consulted as RUQ US demonstrated possible dilation of CBD. GI suggested fever less likely related to biliary source given normal LFTs. HIDA also negative for acute cholecystit is/biliary obstruction. Patient continued to spike fevers, sputum grew citrobacter koseri and ID wasconsulted. ID suspect fevers 2/2 hypersensitivity reaction likely to beta lactams. Abx discontinued and patient remained afebrile thereafter. Patient weaned off pressors and currently on minimal sedation. Tolerating trach trials throughout the day/night and saturating well. Family care conference held, plans to d/c home with / care from family members vs lyudmila placement. Patient then tolerated downsizing of trach to 6-0 shiley. Had severe anxiety on TTF, likely related to trach collar and Precedex Withdrawal. Improved on Clonazepam and will add Ramelteon. Added Metoprolol. D/c pepcid and addedpantoprazole. Remains in sinus tachy, CTPE showed scattered b/l PEs and possible RA thrombus. Started on heparin drip and will initiate coumadin for INR of 2-3. GI consulted for severe GERD on MBS, recommended outpatient endoscopy in 4-6 weeks from discharge asbarium swallow study was normal. Placement and funding remain a barrier to discharge Associated attestation - Alma Blevins MD - 11/03/2019 3:20 PM CDTI personally examined the patient on 11/03/[address] Gallo's resident note as written. I actively participated in the decision-making process. Please see the resident's note for additional details.Bar Marquez [facility] - 11/03/2019 7:13 AM CDTPharmacy Note for Warfarin Monitoring Pharmacy to monitor warfarin dosing for patient Vinnie Fontenottrey Aguilera, [id number]. Indications: bilateral pulmonary emboli and possible right ventricular thrombi (CTA of the chest on 10/29/19) Goal INR: 2-3 Warfarin dosage prior to admission: none; warfarin initiated this hospitalization on 10/31/19 Most recent INR: 1.0 this morning Current warfarin dosage: 7.5 mg daily at 1700 Date INR Warfarin dose received 10/31/19 1.0 5 mg 11/01/19 1.0 5 mg 11/02/19 1.0 7.5 mg 11/03/19 1.0 Bridging anticoagulation: continuous infusion of heparin (initiated on 10/29/19) Assessment and Recommendations: 1. Ms. Crespos INR remains 1.0 today after receiving warfarin for the past three days. Although Ms. Crespos warfarin dosage was just increased to 7.5 mg daily yesterday, I would recommend entering [facility] for warfarin 2.5 mg ONCE at 1700 today, 11/03/19, in addition to the already scheduled 7.5-mg dose of warfarin for today, for a total of 10 mg of warfarin at 1700 today, 11/03/19. 2. Please continue to check Ms. Santana INR daily. I will continue to follow the patient. Page me with any questions. Bar Marquez (Eddie), Pharm.D., [facility] Pager: [phone] signed by Bar Marquez [facility] at 11/03/2019 7:15 AM Flakito Stahl MD - 11/02/2019 8:28 AM CDT PGY-1 Adebayo Team Progress Note Date of Service: 11/02/2019 08:28 Date of Admission: 09/20/2019 Chief Complaint: dyspnea 24-HOUR EVENTS: NAEON SUBJECTIVE: Feels well. Looks more alert. Denies any major issue PHYSICAL EXAM: Vitals: 11/02/19 0256 11/02/19 0653 11/02/19 0710 11/02/19 0747 BP: 116/81 131/86 BP Location: Right arm Patient Position: Supine Pulse: 89 95 96 106 Resp: Temp: 37.1 C (98.8 F) 36.6 C (97.8 F) TempSrc: Oral Oral SpO2: 96% 96% 98% 93% Weight: Height: General: alert and oriented x 4 (person, place, date/time and situation); no significant distress Lungs: upper airway transmitted sounds over anterior lung hirsch, tracheostomy in place with white secretions Cardio: S1, S2 normal; no murmurs, rubs or gallops, regular rate and rhythm Abdomen: soft; non-tender; obese; normoactive bowel sounds Extremities: no clubbing, cyanosis, or edema. Left wrist ulceration noted LABS/IMAGING - reviewed, pertinent results as below: Mag 1.6, repleted Troponin negative lNR 1 TTE: A two-dimensional transthoracic echocardiogram with M-mode and Doppler was performed. The study was technically limited. Limited image quality. Left ventricular systolic function is normal. Ejection Fraction = 55-60%.Dilated RV. Flattened septum is consistent with RV pressure/volume overload. Right ventricular systolic pressure is elevated at >60mmHg.There is severe pulmonary hypertension. ASSESSMENT/PLAN Vinnie Aguilera is a 43 year old female who was admitted to the hospital with: Bilateral pulmonary emboli Suspicious areas of thrombi in right ventricle CT PE significant for bilateral pulmonary emboli and possible thrombi in right ventricle, patient started on heparin drip yesterday, will eventually need bridge to warfarin. Obtaining TTE for further characterization of cardiac thrombi, may need SHAD. - TTE pending - heparin gtt - EKG QAM - Per GI, no inpatient scope, will consider starting coumadin - Consider hypercoagulability panel given + FHx Chest Pain: Patient with possible RA thrombus, multiple PEs. Complained of chest discomfort, squeezing in nature. EKG with sinus rhythm, QRS 110ms. - F/u troponins - F/u TTE - Heparin Drip and Coumadin bumped to 7.5 HTN Anxiety Insomnia - continue with Clonazepam and Ramelteon - Metoprolol 25 - d/c fluoxetine DUKE GERD Normal barium swallow, GI signed off, to follow-up in GI clinic in 4-6 weeks and needs casebook request for endoscopy. - PPI BID Acute on Chronic Hypercapnic Hypoxic Respiratory Failure 2/2 Acute HFpEF Exacerbation and Untreated ETIENNE/OHS s/p tracheostomy (10/03)- on 3-4L O2 at home Toxic Metabolic Encephalopathy 2/2 Profound Hypercapnia Severe Pulmonary HTN Pickwickian Syndrome Morbid Obesity PFTs w/ Restrictive Pattern, not COPD (2013) - Suction Q4H and PRN, PCT TID - c/w Hypersal TID - c/w Duonebs Q6h - c/w mucomyst - f/u speech recs: remain NPO with NGT,free H2O protocol PRN for QOL - Mechanical soft diet with swallow precautions Anxiety Insomnia THC Use Disorder Tobacco Use Disorder - d/c paxil - klonipin 0.5 mg BID - avoid antipsychotics as patient does have prolonged QTc - PT/OT Acute on Chronic Diastolic HF HLD Prolonged QTc - c/w Bumex PO mg Q12 H - Strict I/O - avoid QTc prolonging agents - c/w ASA daily Morbid Obesity Hirsutism Pressure Ulcers, POA - SSI Q6H - Wound care notified Disposition Anticipated Discharge Date : 7+ days Barriers to Discharge: patient placement Flakito Gallo MD PGY-1 Neurology Pager number [phone] END OF DAILY PROGRESS NOTE Hospital Course: Vinnie Aguilera is a 43 year old morbidly obese female withOSA (noncompliant with BiPAP), severe pHTN,PFTs w/restrictive pattern (2013),chronic hypoxicrespiratory failure(on home3-4L O2 intermittently),Pickwickian syndrome, HTN, CHFpEF (TTE 09/23/19), chronic DUKE, menorrhagia, and tobacco/THC use disorderwho presented with acute on chronic hypercapnic and hypoxic RF. ABGs were significant for increasing acidosis which improved once intubated in the MICU. DVT ruled out on doppler and patient had intermediate wells score, thus CT PE not obtained. Patient was diuresed aggressively in the setting of acute on chronic HFpEF. Fevers developed 36-48 hours after intubation and patient was initially started on vanc + merrem for aspiration PNA, which was then de-escalated to Unasyn. Infectious workup negative and procal WNL. CBT trial failed twice. As patient could not be weaned off vent despite aggressive diuresis and completion of abx, tracheostomy tube was placed by ENT on 10/04/19. Fevers persisted, so GI was consulted as RUQ US demonstrated possible dilation of CBD. GI suggested fever less likely related to biliary source given normal LFTs. HIDA also negative for acute cholecystit is/biliary obstruction. Patient continued to spike fevers, sputum grew citrobacter koseri and ID wasconsulted. ID suspect fevers 2/2 hypersensitivity reaction likely to beta lactams. Abx discontinued and patient remained afebrile thereafter. Patient weaned off pressors and currently on minimal sedation. Tolerating trach trials throughout the day/night and saturating well. Family care conference held, plans to d/c home with 24/7 care from family members vs lyudmila placement. Patient then tolerated downsizing of trach to 6-0 shiley. Had severe anxiety on TTF, likely related to trach collar and Precedex Withdrawal. Improved on Clonazepam and will add Ramelteon. Added Metoprolol. D/c pepcid and addedpantoprazole. Remains in sinus tachy, CTPE showed scattered b/l PEs and possible RA thrombus. Started on heparin drip and will initiate coumadin for INR of 2-3. GI consulted for severe GERD on MBS, recommended outpatient endoscopy in 4-6 weeks from discharge asbarium swallow study was normal. Placement and funding remain a barrier to discharge Associated attestation - Alma Blevins MD - 11/03/2019 3:20 PM CDTI personally examined the patient on 11/02/[address] Gallo's resident note as written. I actively participated in the decision-making process. Please see the resident's note for additional details.Bar Marquez [facility] - 11/02/2019 5:12 AM CDTPharmacy Note for Warfarin Monitoring Pharmacy to monitor warfarin dosing for patient Vinnie Aguilera, [id number]. Indications: bilateral pulmonary emboli and possible right ventricular thrombi (CTA of the chest on 10/29/19) Goal INR: 2-3 Warfarin dosage prior to admission: none; warfarin initiated this hospitalization on 10/31/19 Most recent INR: 1.0 this morning Current warfarin dosage: 5 mg daily at 1700 Date INR Warfarin dose received 10/31/19 1.0 5 mg 11/01/19 1.0 5 mg 11/02/19 1.0 Bridging anticoagulation: continuous infusion of heparin (initiated on 10/29/19) Assessment and Recommendations: 1. Ms. Aguilera's INR remains 1.0 today after receiving warfarin 5 mg daily the past two days. Therefore, I would recommend increasing warfarin from 5 mg daily at 1700 as currently ordered to 7.5 mg daily at 1700 beginning today, 11/02/19. 2. Please continue to check Ms. Aguilera's INR daily. I will continue to follow the patient this weekend. Page me with any questions. Bar Marquez Pharm.D. (Eddie), [facility] Pager: [phone] signed by Bar Marquez RPH at 11/02/2019 5:14 AM Bar Chan RPH - 11/01/2019 5:25 PM CDTPharmacy Note for Warfarin Monitoring Pharmacy to monitor warfarin dosing for patient Vinnie Aguilera, [id number]. Indications: bilateral pulmonary emboli and possible right ventricular thrombi (CTA of the chest on 10/29/19) Goal INR: 2-3 Warfarin dosage prior to admission: none; warfarin initiated this hospitalization on 10/31/19 Most recent INR: 1.0 this morning Current warfarin dosage: 5 mg daily at 1700 Date INR Warfarin dose received 10/31/19 1.0 5 mg 11/01/19 1.0 Bridging anticoagulation: continuous infusion of heparin (initiated on 10/29/19) Assessment and Plan: 1. Ms. Aguilera's baseline INR is 1.0, and she received her first dose of warfarin yesterday, 10/31/19. I concur with continuing warfarin 5 mg daily at 1700 as currently ordered for today, 11/01/19. 2. Please continue to check Ms. Aguilera's INR daily. I will continue to follow the patient this weekend. Page me with any questions. Bar Marquez Pharm.D. (Eddie), [facility] Pager: [phone] Jazmin Nguyen PTA - 11/01/2019 3:58 PM CDT Physical Therapy Progress Note: Discharge Recommendations: Therapy Needs and Potential: Patient would benefit from continued physical therapy services to address: decline in bed mobility decline in transfers decline in gait and/or balance decreased strength decreased range of motion decreased endurance Challenges to Home Transition: increased risk of falls decreased caregiver availability decreased safety awareness Equipment recommendations: wheelchair, hospital bed and mechanical lift PAIN: -Pain Location: buttocks -Pain rating before treatment: does not rate, After treatment: does not rate -Pain Management: Nursing Notified, Repositioning Provided and Patient denies need for pain meds PRECAUTIONS: Weight Bearing Precaution:WBAT General Precautions:PPE used:Gloves and Surgical mask, General, Fall, oxygen:Trach collar Bracing/Cast present or required:N/A S: Patient agreeable to working with PT. RN entering stating patient is to be moved to 1021 soon for ceiling vanessa lift use. O: Patient met Semi reclined in bed. Patient seen for the following: Bed mobility: Rolling: moderate assist for turning towards L side and Maximal Assist for turning to R side Reclined to sitting: Moderate Assist X 2 persons for trunk righting and L hip management Sitting balance Good Scooting to edge of bed: Maximal Assist progressing to Moderate assist Sit to supine: Maximal assist X 2 Repositioned patient to head of bed: Dependent assessed patient for dizziness, patient denies modeled proper scooting technique prior to transfer attempts Transfers: Lateral scooting transfer: unable to complete fully towards R side from bed to bariatric WC due to patient's fear of falling and not trusting her BLE's despite encouragement and education from therapist Dependent bed <-> BWC via free standing vanessa lift X 2 trials and X 2 persons Verbal cueing provided for correct hand placement and correct use of AD implemented mannual lowering technique as vanessa lift once again malfunctioned while tranfering patient Wheelchair: patient able to propel standard wheelchair x 60 feet X 2 trials on level surface with BLE's and Min <-> Moderate Assist provided patient with comprehensive wheelchair parts/mgmt training via verbal/visual demo prior to use stressing the importance of compliance to help reduce risk of LOB, fall, or injury patient initially presenting B heel digs vs reciprocal maneuver Cues for reciprocal motion provided for increased BLE strength and increased fluidity in movement patient intermittently returning demo correctly and able to verbalize understanding Patient requires multiple rest breaks throughout task Therapeutic exercise: patient educated in Compensatory techniques/adaptive strategies, Deep breathing, Fall prevention,General strengthening, Positioning, Relaxation/breathing techniques and Safety awareness., instructed patient in the following: ankle pumps, quad sets, glut sets, long arc quads, seated marching, patient/caregiver instructed to perform HEP 4 times per day, 50 repetitions., patient/caregiver verbalizesunderstanding of instructions. analyzed patient's ROM when performing tasks with cues for increased isometric contraction at endrange provided After session, patient Semi reclined in bed and call fields provided. A: Patient tolerated session fairly well however fatigues quickly. Patient progressing toward goals #1, #2. P: PT will - progress functional mobility per POC. Total Timed Tx Codes in Minutes: 74 Min Total Treatment Time in Minutes: 74 Min Jazmin Mir PTA Pager # [phone] Supervising PT Beatrice Bansal Danielle Santillan RN - 11/01/2019 2:18 PM CDTCM called [facility] Patient Placement regarding placement. Dr. Cates said 5 SNF's have denied referral but there are 2 SNF's pending placement. Danielle Hanks RN (Allie)-BSN Revenue Accountant [facility] Care Management (not for patient use) Office: [phone] [email or web address] Romi Carlos SLP - 11/01/2019 12:23 PM CDTSPEUNC [facility] Daily Progress Note - 11/01/2019 [id number] Vinnie Aguilera : 1975 Age: [age] year old Sex: female SUBJECTIVE: Patient alert/awake upon arrival, agreeable to working with SITE PROJECT MANAGER. Patient states that she has not been doing dysphagia exercises and has been using 1/2 thickener to no thickener OBJECTIVE: Vinnie Aguilera was seen for 1 SITE PROJECT MANAGER treatment session/s on this date. Treatment was provided due to dysphagia and dysphonia. Patientis a 43 year old female admittedfor management of acute on chronic hypercapnic and hypoxic respiratory failure. PMH significant forOSA, severe pHTN, PFTs w/ restrictive pattern (2013), chronic hypoxic RD (on 3-4L O2 intermittently), Pickwickian syndrome, HTN, CHFpEF, chronic Fe deficiency anemia, menorrhagia, tobacco abuse disorder, THC use disorder, and morbid obesity. Patient urgently intubated on 09/21/19 and unable to wean from vent despite aggressive diuresis and completion of antibiotics. ENT placed 8-0 XL Shiley on 10/04/19.Downsized to a 6-0 cufflessShiley on 10/22/19. MBS (10/28/19) Impressions: moderate-severe pharyngeal dysphagia; silent aspiration of thin liquid (PAS 8); intermittent flash penetration of nectar thick liquid; mild-moderate pharyngeal residue; significant esophageal retention with retrograde flow through the PES into the pharynx FEES (10/22/19) Impressions: severe pharyngeal dysphagia; intermittently silent aspiration of secretions, ice chips, and nectar thick liquids (PAS 7-8); deep penetration (PAS 5) and possible aspiration of puree (PAS 5, ?7-8); mild- moderate diffuse pharyngeal residue; suspected reflux Progress on short term goals was as follows: Swallowing: - Patient will tolerate the safest, least restricted po diet texture without overt s/sx of aspiration or other negative effects on medical condition: Patient observed with trials of nectar thick liquid. . She demonstrated an adequate oral phase subjectively and no overt s/sx of aspiration observed. Pt without signs of developing respiratory infection:Chest Xray 11/01/2019 show the lungs poorly expanded with vascular crowding but no focal infiltratesto suggest pneumonia. Patient re-educated on swallow results with silent aspiration of thin liquids. (continue goal) - Patient will demonstrate adherence to swallowing precautions while eating a meal/snack with minimal cues 80% of the time: Reviewed swallow precautions with patient, specifically swallowing several times per bite/sips. Patient verbalized understanding and able to demonstrate independently. (goal met) - Patient will complete base of tongue, strap muscle, and airway protection exercises with minimal cues 80% of the time: Patient states she is aware of her exercises and defers doing them with family in the room. (continue goal) Voice: - Patient will tolerate speaking valve placement and achieve functional voicing without significant change in baseline monitors for 30+ minutes. Patient reports she has been wearing the speaking valve as needed to communicate with family/staff and during po intake. Pt independently placed PMV. Patient tolerated speaking valve for entire sessionwithout change in baseline monitors or complaints or s/sx of distress, discomfort, or dyspnea. She was able to achieve clearer and stronger phonation with speaking valve. -goal Met. - Patient will independently place and remove speaking valve. Patient placed and removed PMV using both hands independently. (goal met) - Patient will independently state 3 safety precautions for use of the speaking valve. Patient independently recalled that speaking valve is not to be worn when asleep, should be word when eating/drinking, and able to describe when suctioning is indicated with speaking valve use. Reviewed other precautions including removing at any sign of respiratory distress, and cleaning 1x/day. (goal met) ASSESSMENT: Vinnie Aguilera continues to present with a moderate-severe pharyngeal dysphagia in the settingof compromised respiratory status s/p tracheostomy with impairments in both airway protection and pharyngeal efficiency. MBS on 10/27 showed silent aspiration of thin liquid and mild-moderate pharyngealresidue as well as significant reflux. No overt s/sx of aspiration observed this date, though aspiration cannot be confirmed nor ruled out at bedside. CT xray on this date shows vascular crowding but no concerns for pneumonia. Patient re-educated on the importance of completing dysphagia exercises to improve swallow function - patient verbalized understanding. Based on todays assessment, she appears safe to continue po diet with strict adherence to texture modifications and swallow precautions. She could benefit from monitoring for overt s/sx of aspiration or worsened respiratory status. During today's session, patient demonstrated toleration of speaking valve without significant changes in baseline monitors or complaints or s/sx of distress, discomfort, or dyspnea. Patient was able todone/doff speaking valve and demonstrate understanding of speaking valve precautions independently. SITE PROJECT MANAGER will continue to follow while in-house for dysphagia. PLAN: 1. Recommend patient continue a mechanical soft-textured diet with nectar-thick liquids and swallow precautions: sit fully upright/chair, small single sips/bites, alternate sips/bites, remain upright for 30 minutes after meals and swallow 2-3x per bite/sip - To thicken liquids, add 1 pk of ThickenUp Clear to every 4 oz of liquids. - Thickener will not come up on meal tray. Please order from materials management if not stored in Hands on unit. - Note: pre-packaged tea from kitchen is a 6 oz cup and requires 1.5 pks of thickener. 2. Recommend elevated head of bed and frequent, thorough oral hygiene care due to risk for aspiration. 4. Recommend patient be closely monitored for s/sx of aspiration or signs of a developing respiratory infection (i.e. Throat clearing/coughing with po, wet/gurgled voice, fever spikes 30-60 mins after meals, increased chest congestion, leukocytosis, etc.). If observed or suspected, recommend patient be made NPO until re-assessed by SITE PROJECT MANAGER. 5. Recommend SITE PROJECT MANAGER therapy 2-5x/wk for 15-45 min/session to address the above goals and for repeat imaging to potentially upgrade patient to thin liquids next week. If patient discharges to LTAC it can also be completed there. Romi Coffey M.S., [facility]-SITE PROJECT MANAGER Speech Language Pathologist Pager: [phone] Office:[phone] Flakito Stahl MD - 11/01/2019 8:30 AM CDT PGY-1 Adebayo Team Progress Note Date of Service: 11/01/2019 08:30 Date of Admission: 09/20/2019 Chief Complaint: dyspnea 24-HOUR EVENTS: Had some chest pain around 5 AM. SUBJECTIVE: Complained of squeezing type chest discomfort around 5 AM. EKG unremarkable. PHYSICAL EXAM: Vitals: 11/01/19 0122 11/01/19 0135 11/01/19 0400 11/01/19 0658 BP: 120/79 BP Location: Right arm Patient Position: Supine Pulse: 84 84 89 88 Resp: 16 18 16 Temp: 36.7 C (98 F) TempSrc: Oral SpO2: 96% 97% 98% 97% Weight: Height: General: alert and oriented x 4 (person, place, date/time and situation); no significant distress Lungs: upper airway transmitted sounds over anterior lung hirsch, tracheostomy in place with white secretions Cardio: S1, S2 normal; no murmurs, rubs or gallops, regular rate and rhythm Abdomen: soft; non-tender; obese; normoactive bowel sounds Extremities: no clubbing, cyanosis, or edema LABS/IMAGING - reviewed, pertinent results as below: Reviewed ASSESSMENT/PLAN Vinnie Aguilera is a 43 year old female who was admitted to the hospital with: Bilateral pulmonary emboli Suspicious areas of thrombi in right ventricle CT PE significant for bilateral pulmonary emboli and possible thrombi in right ventricle, patient started on heparin drip yesterday, will eventually need bridge to warfarin. Obtaining TTE for further characterization of cardiac thrombi, may need SHAD. - TTE pending - heparin gtt - EKG QAM - Per GI, no inpatient scope, will consider starting coumadin - Consider hypercoagulability panel given + FHx Chest Pain: Patient with possible RA thrombus, multiple PEs. Complained of chest discomfort, squeezing in nature. EKG with sinus rhythm, QRS 110ms. - F/u troponins - F/u TTE HTN Anxiety Insomnia - continue with Clonazepam and Ramelteon - Metoprolol 25 DUKE GERD Normal barium swallow, GI signed off, to follow-up in GI clinic in 4-6 weeks and needs casebook request for endoscopy. - PPI BID - Follow up on AUGUSTO, SCL 70 Acute on Chronic Hypercapnic Hypoxic Respiratory Failure 2/2 Acute HFpEF Exacerbation and Untreated ETIENNE/OHS s/p tracheostomy (10/03)- on 3-4L O2 at home Toxic Metabolic Encephalopathy 2/2 Profound Hypercapnia Severe Pulmonary HTN Pickwickian Syndrome Morbid Obesity PFTs w/ Restrictive Pattern, not COPD (2013) - Suction Q4H and PRN, PCT TID - c/w Hypersal TID - c/w Duonebs Q6h - c/w mucomyst - f/u speech recs: remain NPO with NGT,free H2O protocol PRN for QOL - Mechanical soft diet with swallow precautions Anxiety Insomnia THC Use Disorder Tobacco Use Disorder - d/c paxil - increased fluoxetine to 20 mg QD, klonipin 0.5 mg TID - avoid antipsychotics as patient does have prolonged QTc - PT/OT Acute on Chronic Diastolic HF HLD Prolonged QTc - c/w Bumex PO mg Q12 H - Strict I/O - avoid QTc prolonging agents - c/w ASA daily Morbid Obesity Hirsutism - SSI Q6H Disposition Anticipated Discharge Date : 7+ days Barriers to Discharge: patient placement Flakito Gallo MD PGY-1 Neurology Pager number [phone] END OF DAILY PROGRESS NOTE Hospital Course: Vinnie Aguilera is a 43 year old morbidly obese female withOSA (noncompliant with BiPAP), severe pHTN,PFTs w/restrictive pattern (2013),chronic hypoxicrespiratory failure(on home3-4L O2 intermittently),Pickwickian syndrome, HTN, CHFpEF (TTE 09/23/19), chronic DUKE, menorrhagia, and tobacco/THC use disorderwho presented with acute on chronic hypercapnic and hypoxic RF. ABGs were significant for increasing acidosis which improved once intubated in the MICU. DVT ruled out on doppler and patient had intermediate wells score, thus CT PE not obtained. Patient was diuresed aggressively in the setting of acute on chronic HFpEF. Fevers developed 36-48 hours after intubation and patient was initially started on vanc + merrem for aspiration PNA, which was then de-escalated to Unasyn. Infectious workup negative and procal WNL. CBT trial failed twice. As patient could not be weaned off vent despite aggressive diuresis and completion of abx, tracheostomy tube was placed by ENT on 10/04/19. Fevers persisted, so GI was consulted as RUQ US demonstrated possible dilation of CBD. GI suggested fever less likely related to biliary source given normal LFTs. HIDA also negative for acute cholecystit is/biliary obstruction. Patient continued to spike fevers, sputum grew citrobacter koseri and ID wasconsulted. ID suspect fevers 2/2 hypersensitivity reaction likely to beta lactams. Abx discontinued and patient remained afebrile thereafter. Patient weaned off pressors and currently on minimal sedation. Tolerating trach trials throughout the day/night and saturating well. Family care conference held, plans to d/c home with 24/7 care from family members vs lyudmila placement. Patient then tolerated downsizing of trach to 6-0 shiley. Had severe anxiety on TTF, likely related to trach collar and Precedex Withdrawal. Improved on Clonazepam and will add Ramelteon. Added Metoprolol. D/c pepcid and addedpantoprazole. Remains in sinus tachy, CTPE showed scattered b/l PEs and possible RA thrombus. Started on heparin drip and will initiate coumadin for INR of 2-3. GI consulted for severe GERD on MBS, recommended outpatient endoscopy in 4-6 weeks from discharge asbarium swallow study was normal. Placement and funding remain a barrier to discharge Associated attestation - Alma Blevins MD - 11/01/2019 2:23 PM CDTI personally examined the patient on 11/01/[address] Gallo's resident note with the following addition(s): isolated episode of chest pain that resolved associated with normal troponin andECG with prolonged QTc. Will d/c tramadol and prozac as both of these medications may be contributing. Continue with heparin gtt for PE, awaiting TTE, check electrolytes . I actively participated inthe decision-making process. Please see the resident's note for additional details. Jazmin Mir, OCCUP THER - 10/31/2019 5:18 PM CDT Physical Therapy Progress Note: Discharge Recommendations: Therapy Needs and Potential: Patient would benefit from continued physical therapy services to address: decline in bed mobility decline in transfers decline in gait and/or balance decreased strength decreased range of motion decreased endurance Challenges to Home Transition: increased risk of falls decreased caregiver availability decreased safety awareness Equipment recommendations: wheelchair, hospital bed and mechanical lift PAIN: -Pain Location: L knee and sacral wounds -Pain rating before treatment: 0, After treatment: 5 -Pain Management: Nursing Notified Precautions: Weight Bearing Precaution:WBAT General Precautions:PPE used:Gloves and Surgical mask, General, Fall, oxygen:Trach collar Bracing/Cast present or required:N/A S: Patient agreeable to working with PT. Patient voicing frustration over not being able to walk and move around. Patient reports therapists are the only ones getting her out of bed via free standinghoyer lift. O: Patient met semi reclined in bed with 2 blankets under her and purewick collection container overflowing with puddle of urine noted on the floor. Patient now in bariatric bed with OHT which limits vanessa capability especially if she is moved to room with a proper ceiling unit as the free standing lifts have begun to malfunction when used during session. Patient seen for the following: Bed mobility: Rolling: Moderate Assist for trunk management and Maximal Assist for hip/BLE management Repositioned patient to head of bed: Dependent cued patient on proper rolling technique Transfers: dependent bed to bariatric WC then back to bed as vanessa lift began to malfunction Therapeutic exercise: patient educated in Compensatory techniques/adaptive strategies, Edema management, Fall prevention, General strengthening, Positioning, Relaxation/breathing techniques and Safety awareness., instructed patient in the following: ankle pumps, quad sets, glut sets, heel slides, hip abduction/adduction, hip internal/external rotation, straight leg raises, one leg bridging Right, patient/caregiver instructed to perform HEP 4 times per day, 20 repetitions., patient/caregiver demonstrates understanding of instructions. After session, patient Semi reclined in bed and call fields provided. A: Patient tolerated session fair. Unable to progress patient's mobility this date as she is NOT in the proper room with a ceiling vanessa lift. Patient unable to stand from EOB due to safety concerns vs standing from bariatric WC and or Bariatric recliner. P: PT will - attempt to progress functional mobility IF patient is moved to proper room with ceilinghoyer lift and OHT is removed from bed. Total Timed Tx Codes in Minutes: 68 Min Total Treatment Time in Minutes: 68 Min Jazmin Mir PTA Pager # [phone] Supervising PT Beatrice Bansal Kira June SITE PROJECT MANAGER - 10/31/2019 2:33 PM [facility] Daily Progress Note - 10/31/2019 [id number] Vinnie Aguilera : 1975 Age: [age] year old Sex: female SUBJECTIVE: Patient alert/awake upon arrival, agreeable to working with SITE PROJECT MANAGER. Patient states that she has not been doing dysphagia exercises and wants to get off thickened liquids. OBJECTIVE: Vinnie Aguilera was seen for 1 SITE PROJECT MANAGER treatment session/s on this date. Treatment was provided due to dysphagia and dysphonia. Patientis a 43 year old female admittedfor management of acute on chronic hypercapnic and hypoxic respiratory failure. PMH significant forOSA, severe pHTN, PFTs w/ restrictive pattern (2013), chronic hypoxic RD (on 3-4L O2 intermittently), Pickwickian syndrome, HTN, CHFpEF, chronic Fe deficiency anemia, menorrhagia, tobacco abuse disorder, THC use disorder, and morbid obesity. Patient urgently intubated on 09/21/19 and unable to wean from vent despite aggressive diuresis and completion of antibiotics. ENT placed 8-0 XL Shiley on 10/04/19.Downsized to a 6-0 cufflessShiley on 10/22/19. MBS (10/28/19) Impressions: moderate-severe pharyngeal dysphagia; silent aspiration of thin liquid (PAS 8); intermittent flash penetration of nectar thick liquid; mild-moderate pharyngeal residue; significant esophageal retention with retrograde flow through the PES into the pharynx FEES (10/22/19) Impressions: severe pharyngeal dysphagia; intermittently silent aspiration of secretions, ice chips, and nectar thick liquids (PAS 7-8); deep penetration (PAS 5) and possible aspiration of puree (PAS 5, ?7-8); mild- moderate diffuse pharyngeal residue; suspected reflux Progress on short term goals was as follows: Swallowing: - Patient will tolerate the safest, least restricted po diet texture without overt s/sx of aspiration or other negative effects on medical condition: Patient observed with trials of nectar thick liquid and chewable solids. She demonstrated an adequate oral phase subjectively and no overt s/sx of aspiration observed. Pt without signs of developing respiratory infection: afebrile Temp (48hrs), Av.8 C (98.2 F), Min:36.2 C (97.1 F), Max:37.2 C (99 F); no leukocytosis. CT chest showed groundglass opacities greatest in the RLL. (continuegoal) - Patient will demonstrate adherence to swallowing precautions while eating a meal/snack with minimal cues 80% of the time: Reviewed swallow precautions with patient, specifically swallowing several times per bite/sips. Patient verbalized understanding and able to demonstrate independently. (goal met) - Patient will complete base of tongue, strap muscle, and airway protection exercises with minimal cues 80% of the time: Discussed with patient the importance of continuing to complete swallowing exercises. Patient verbalized understanding and demonstrated how to complete each exercise. Introduced airway protection exercise of pitch glides and provided model. Patient demonstrated completion of pitch glide independently. Reviewed recommended exercise regimen of 10 reps per exercise 3x/day. (continue goal) Voice: - Patient will tolerate speaking valve placement and achieve functional voicing without significant change in baseline monitors for 30+ minutes. Patient reports she has been wearing the speaking valve as needed to communicate with family/staff and during po intake. PMV placed. Patient tolerated speaking valve for entire session without change in baseline monitors or complaints or s/sx of distress, discomfort, or dyspnea. She was able to achieve clearer and stronger phonation with speaking valve, though her vocal quality was noted to be mildlyhoarse/breathy. (progressing, continue goal) - Patient will independently place and remove speaking valve. Patient placed and removed PMV using both hands independently. (goal met) - Patient will independently state 3 safety precautions for use of the speaking valve. Patient independently recalled that speaking valve is not to be worn when asleep, should be word when eating/drinking, and able to describe when suctioning is indicated with speaking valve use. Reviewed other precautions including removing at any sign of respiratory distress, and cleaning 1x/day. (goal met) ASSESSMENT: Vinnie Aguilera continues to present with a moderate-severe pharyngeal dysphagia in the settingof compromised respiratory status s/p tracheostomy with impairments in both airway protection and pharyngeal efficiency. MBS on 10/27 showed silent aspiration of thin liquid and mild-moderate pharyngealresidue as well as significant reflux. No overt s/sx of aspiration observed this date, though aspiration cannot be confirmed nor ruled out at bedside. CT chest on 10/27 did show groundglass opacities greatest in the RLL which is possibly concerning for aspiration-related infection. However, she is otherwise without symptoms of infection (i.e. no leukocytosis, afebrile). Discussed importance of completing dysphagia exercises to improve swallow function - patient verbalized understanding. Based on these observations, she appears safe to continue po diet with strict adherence to texture modifications and swallow precautions. She could benefit from monitoring for overt s/sx of aspiration or worsened res piratory status. During today's session, patient demonstrated toleration of speaking valve without significant changes in baseline monitors or complaints or s/sx of distress, discomfort, or dyspnea. Patient was able todone/doff speaking valve and demonstrate understanding of speaking valve precautions independently. SITE PROJECT MANAGER will continue to follow while in-house for dysphagia and dysphonia. PLAN: 1. Recommend patient continue a mechanical soft-textured diet with nectar-thick liquids and swallow precautions: sit fully upright/chair, small single sips/bites, alternate sips/bites, remain upright for 30 minutes after meals and swallow 2-3x per bite/sip - To thicken liquids, add 1 pk of ThickenUp Clear to every 4 oz of liquids. - Thickener will not come up on meal tray. Please order from materials management if not stored in [employer] on unit. - Note: pre-packaged tea from kitchen is a 6 oz cup and requires 1.5 pks of thickener. 2. Recommend continued investigation/management of esophageal dysphagia/reflux per GI. 3. Recommend elevated head of bed and frequent, thorough oral hygiene care due to risk for aspiration. 4. Recommend patient be closely monitored for s/sx of aspiration or signs of a developing respiratory infection (i.e. Throat clearing/coughing with po, wet/gurgled voice, fever spikes 30-60 mins after meals, increased chest congestion, leukocytosis, etc.). If observed or suspected, recommend patient be made NPO until re-assessed by SITE PROJECT MANAGER. 5. Recommend SITE PROJECT MANAGER therapy 2-5x/wk for 15-45 min/session to address the above goals. Kira June M.S. [facility]-SITE PROJECT MANAGER Speech-Language Pathologist Office: [phone] Pager: [phone]' arialuisa Olea RD - 10/31/2019 12:58 PM CDT Medical Nutrition Therapy- Progress Note: Malnutrition Assessment: Nutritional Diagnosis: None SGA Rating: Well-Nourished, Normal History of Present Illness Patient admitted due to dyspnea and acute on chronic hypercapnic and hypoxic respiratory failure dueto HF exacerbation. Patient intubated upon arrival. Shortly after intubation and sedation with propofol, patient became hypotensive requiring peripheral levophed to maintain MAP >60. Patient is also11 pack per year smoker also with marijuana use. Patient also with uncompensated respiratory acidosis, severe pulmonary hypertension, and toxic metabolic encephalopathy. NG tube placed 09/20/19. Patient also with iron deficiency. Patient also with chronic volume overload and aspiration pneumonia. Patient with toxic metabolic encephalopathy due to profound hypercapnia. Patient now with trach and no longer requiring vent. Patient now moved to the floor and no oral diet. GI and Nutrition Related Findings: Symptoms: N/A Difficulty: N/A GI tract alteration: N/A Alternative means of nutrition: N/A General: N/A Lab and Medical Test Results: NA Date Value 10/31/2019 134 mmol/L (L) 03/19/2014 138 MMOL/L K Date Value 10/31/2019 4.0 mmol/L 03/19/2014 4.2 MMOL/L CALCIUM Date Value 10/31/2019 8.9 mg/dL 03/19/2014 9.2 MG/DL GLUCOSE Date Value 10/31/2019 101 mg/dL 03/19/2014 88 MG/DL Weight History: Wt Readings from Last 20 Encounters: 10/15/19 199.4 kg (439 lb 9.6 oz) 10/06/18 225.4 kg (496 lb 14.7 oz) 05/01/18 218 kg (480 lb 9.6 oz) 06/14/16 183.7 kg (405 lb) 05/29/16 186 kg (410 lb) 10/14/15 165.9 kg (365 lb 11.2 oz) 09/07/15 165.6 kg (365 lb) 03/19/14 173.3 kg (382 lb) 03/12/14 172.8 kg (380 lb 14.4 oz) Inflammatory Markers: N/A Current Dietary Order(s): Beneprotein - Amount: Other-See Comments (3 packets); Administration Instructions: Bolus, dissolve in 50 mL water and administer via feeding or gastric tube Jevity 1.2 Cassandra (1.2 kcal/mL, protein 18.5% of kcal) Cardiac (2 gm Sodium, Low Fat, Low Cholesterol) Diet; Texture: Mechanical Soft.; Thickened Liquids Modifiers: [place] (Please send thickener to floor) Nutrition & Diet History: RD attempted to speak with patient 2x today in room but patient was being seen by PT. Per nursing flowsheet, unable to fully assess adequacy of patient's energy intake at meals. Per nurse, patient is eating well at meals with no issues. RD will sign off on the patient at this time. Please do not hesitate to consult for additional needs. Thank you. Estimated Daily Nutritional Needs: MSJ (w/o activity factor): 2723 kcal/day = 14 kcal/kg MSJ x 1.2: 3268 kcal/day = 16 kcal/kg Protein: 21% of kcal need/day = >165 g/day = 0.7 g/kg current wt = >2.5 g/kg IBW Fluid: <2000 mL/day or per MD; adjust per acute needs (heart failure) Nutrition Diagnosis: Inadequate oral intake related to recent intubation as evidenced by need for TF.-resolved Obesity related to excess energy intake as evidenced by BMI 64.89 kg/m2. Nutrition Plan of Care: Intervention(s): 1. Continue with current diet, Cardiac-Mechanical Soft with Thickened Liquids 2. If patient with poor po intake at meals, recommend ensure enlive TID 3. Please allow snacks between meals as needed Goal(s): 1. Patient will be able to meet 100% of nutrient needs via meals/snacks/supplements. 2. Patient will be able to eat >50-75% of all meals. D/C Planning: Continue with current recommendations. Nutrition Monitoring and Evaluation: A registered dietitian will f/u as indicated to report nutrition related information and to revise the recommended nutrition intervention(s); please call with questions or concerns, thank-you. Marialuisa Olea MS, RD, LD Clinical Dietitian RD Office: [phone] Flakito Gallo MD - 10/31/2019 7:38 AM CDT PGY-1 [facility] Team Progress Note Date of Service: 10/31/2019 07:38 Date of Admission: 09/20/2019 Chief Complaint: dyspnea 24-HOUR EVENTS: No acute events overnight SUBJECTIVE: Complained of knee pain. Breathing remains the same. Denies chest pain, worsening dyspnea. PHYSICAL EXAM: Vitals: 10/30/19 2351 10/31/19 0001 10/31/19 0046 10/31/19 0442 BP: 108/71 118/77 BP Location: Right arm Patient Position: Sitting Sitting Pulse: 88 88 90 93 Resp: Temp: 37 C (98.6 F) 36.9 C (98.5 F) TempSrc: Oral Oral SpO2: 95% 100% 94% 98% Weight: General: alert and oriented x 4 (person, place, date/time and situation); no significant distress Lungs: upper airway transmitted sounds over anterior lung hirsch, tracheostomy in place with white secretions Cardio: S1, S2 normal; no murmurs, rubs or gallops, regular rate and rhythm Abdomen: soft; non-tender; obese; normoactive bowel sounds Extremities: no clubbing, cyanosis, or edema LABS/IMAGING - reviewed, pertinent results as below: Reviewed ASSESSMENT/PLAN Vinnie Aguilera is a 43 year old female who was admitted to the hospital with: Bilateral pulmonary emboli Suspicious areas of thrombi in right ventricle CT PE significant for bilateral pulmonary emboli and possible thrombi in right ventricle, patient started on heparin drip yesterday, will eventually need bridge to warfarin. Obtaining TTE for further characterization of cardiac thrombi, may need SHAD. - TTE pending - heparin gtt - EKG QAM - Per GI, no inpatient scope, will consider starting coumadin - Consider hypercoagulability panel given + FHx HTN Anxiety Insomnia - continue with Clonazepam and Ramelteon - Metoprolol 25 DUKE GERD Normal barium swallow, GI signed off, to follow-up in GI clinic in 4-6 weeks and needs casebook request for endoscopy. - PPI BID - Follow up on AUGUSTO, SCL 70 Acute on Chronic Hypercapnic Hypoxic Respiratory Failure 2/2 Acute HFpEF Exacerbation and Untreated ETIENNE/OHS s/p tracheostomy (10/03)- on 3-4L O2 at home Toxic Metabolic Encephalopathy 2/2 Profound Hypercapnia Severe Pulmonary HTN Pickwickian Syndrome Morbid Obesity PFTs w/ Restrictive Pattern, not COPD (2013) - Suction Q4H and PRN, PCT TID - c/w Hypersal TID - c/w Duonebs Q6h - c/w mucomyst - f/u speech recs: remain NPO with NGT,free H2O protocol PRN for QOL - Mechanical soft diet with swallow precautions Anxiety Insomnia THC Use Disorder Tobacco Use Disorder - d/c paxil - increased fluoxetine to 20 mg QD, klonipin 0.5 mg TID - avoid antipsychotics as patient does have prolonged QTc - PT/OT Acute on Chronic Diastolic HF HLD Prolonged QTc - c/w Bumex PO mg Q12 H - Strict I/O - avoid QTc prolonging agents - c/w ASA daily Morbid Obesity Hirsutism - SSI Q6H Disposition Anticipated Discharge Date : 7+ days Barriers to Discharge: patient placement Flakito Gallo MD PGY-1 Neurology Pager number [phone] END OF DAILY PROGRESS NOTE Hospital Course: Vinnie Aguilera is a 43 year old morbidly obese female withOSA (noncompliant with BiPAP), severe pHTN,PFTs w/restrictive pattern (2013),chronic hypoxicrespiratory failure(on home3-4L O2 intermittently),Pickwickian syndrome, HTN, CHFpEF (TTE 09/23/19), chronic DUKE, menorrhagia, and tobacco/THC use disorderwho presented with acute on chronic hypercapnic and hypoxic RF. ABGs were significant for increasing acidosis which improved once intubated in the MICU. DVT ruled out on doppler and patient had intermediate wells score, thus CT PE not obtained. Patient was diuresed aggressively in the setting of acute on chronic HFpEF. Fevers developed 36-48 hours after intubation and patient was initially started on vanc + merrem for aspiration PNA, which was then de-escalated to Unasyn. Infectious workup negative and procal WNL. CBT trial failed twice. As patient could not be weaned off vent despite aggressive diuresis and completion of abx, tracheostomy tube was placed by ENT on 10/04/19. Fevers persisted, so GI was consulted as RUQ US demonstrated possible dilation of CBD. GI suggested fever less likely related to biliary source given normal LFTs. HIDA also negative for acute cholecystit is/biliary obstruction. Patient continued to spike fevers, sputum grew citrobacter koseri and ID wasconsulted. ID suspect fevers 2/2 hypersensitivity reaction likely to beta lactams. Abx discontinued and patient remained afebrile thereafter. Patient weaned off pressors and currently on minimal sedation. Tolerating trach trials throughout the day/night and saturating well. Family care conference held, plans to d/c home with 24/7 care from family members vs lyudmila placement. Patient then tolerated downsizing of trach to 6-0 shiley. Had severe anxiety on TTF, likely related to trach collar and Precedex Withdrawal. Improved on Clonazepam and will add Ramelteon. Added Metoprolol. D/c pepcid and addedpantoprazole. Remains in sinus tachy, CTPE showed scattered b/l PEs and possible RA thrombus. Started on heparin drip and will initiate coumadin for INR of 2-3. GI consulted for severe GERD on MBS, recommended outpatient endoscopy in 4-6 weeks from discharge asbarium swallow study was normal. Placement and funding remain a barrier to discharge Associated attestation - Alma Blevins MD - 11/01/2019 2:24 PM CDTI personally examined the patient on 10/31/[address] Gallo's resident note as written. I actively participated in the decision-making process. Please see the resident's note for additional details. Brenda Romero DO - 10/30/2019 5:16 PM CDT PGY-1 [facility] Team Progress Note Date of Service: 10/30/2019 17:16 Date of Admission: 09/20/2019 Chief Complaint: dyspnea 24-HOUR EVENTS: No acute events overnight SUBJECTIVE: Patient resting comfortably, continues to tolerate PO intake, has multiple questions about dischargeplanning. PHYSICAL EXAM: Vitals: 10/30/19 1202 10/30/19 1220 10/30/19 1222 10/30/19 1516 BP: 116/81 117/85 BP Location: Right arm Right arm Patient Position: Supine Sitting Pulse: 87 98 Resp: 18 Temp: 36.7 C (98.1 F) 36.7 C (98 F) TempSrc: Oral Oral SpO2: 90% 95% 95% 93% Weight: General: alert and oriented x 4 (person, place, date/time and situation); no significant distress Lungs: upper airway transmitted sounds over anterior lung hirsch, tracheostomy in place with white secretions Cardio: S1, S2 normal; no murmurs, rubs or gallops, regular rate and rhythm Abdomen: soft; non-tender; obese; normoactive bowel sounds Extremities: no clubbing, cyanosis, or edema LABS/IMAGING - reviewed, pertinent results as below: CT PE: 1. Bilateral pulmonary emboli in the distal subsegmental lower lobes as described above with straightening of the interventricular septum suggestive of right heart strain. 2. Severe cardiomegaly with image findings consistent with mild pulmonary edema and congestive heart failure. 3. Pulmonary trunk dilation, consistent with pulmonary artery hypertension. 4. Right atrial and right ventricular enlargement with straightening of the interventricular septum suggestive of right heart strain. Heterogeneous appearance of the right atrium. The areas of low attenuation are concerning for additional filling defects within the right atrium versus suboptimal opacification of the chamber, including right atrial appendage. A few suspicious areas of thrombi are also present in the dilated right ventricle. The above findings were communicated to and acknowledged by Dr. Gallo with the [facility] team at 15:47 on 10/29/2019. Consider echocardiography or repeat more optimal CTA for evaluation of the right atrium and right ventricle for presence of thrombi. Barium swallow: normal ASSESSMENT/PLAN Vinnie Aguilera is a 43 year old female who was admitted to the hospital with: Bilateral pulmonary emboli Suspicious areas of thrombi in right ventricle CT PE significant for bilateral pulmonary emboli and possible thrombi in right ventricle, patient started on heparin drip yesterday, will eventually need bridge to warfarin. Obtaining TTE for further characterization of cardiac thrombi, may need SHAD. - TTE - heparin gtt - EKG QAM HTN Anxiety Insomnia - continue with Clonazepam and Ramelteon - Metoprolol 25 DUKE GERD Normal barium swallow, GI signed off, to follow-up in GI clinic in 4-6 weeks and needs casebook request for endoscopy. - PPI BID - Follow up on AUGUSTO, SCL 70 Acute on Chronic Hypercapnic Hypoxic Respiratory Failure 2/2 Acute HFpEF Exacerbation and Untreated ETIENNE/OHS s/p tracheostomy (10/03)- on 3-4L O2 at home Toxic Metabolic Encephalopathy 2/2 Profound Hypercapnia Severe Pulmonary HTN Pickwickian Syndrome Morbid Obesity PFTs w/ Restrictive Pattern, not COPD (2013) - Suction Q4H and PRN, PCT TID - c/w Hypersal TID - c/w Duonebs Q6h - c/w mucomyst - f/u speech recs: remain NPO with NGT,free H2O protocol PRN for QOL - Mechanical soft diet with swallow precautions Anxiety Insomnia THC Use Disorder Tobacco Use Disorder - d/c paxil - increased fluoxetine to 20 mg QD, klonipin 0.5 mg TID - avoid antipsychotics as patient does have prolonged QTc - PT/OT Acute on Chronic Diastolic HF HLD Prolonged QTc - c/w Bumex PO mg Q12 H - Strict I/O - avoid QTc prolonging agents - c/w ASA daily Morbid Obesity Hirsutism - SSI Q6H Disposition Anticipated Discharge Date : 7+ days Barriers to Discharge: patient placement Brenda Romero, Internal Medicine, PGY1 [facility] Team Pager# [phone] END OF DAILY PROGRESS NOTE Hospital Course: Vinnie Aguilera is a 43 year old morbidly obese female withOSA (noncompliant with BiPAP), severe pHTN,PFTs w/restrictive pattern (2013),chronic hypoxicrespiratory failure(on home3-4L O2 intermittently),Pickwickian syndrome, HTN, CHFpEF (TTE 09/23/19), chronic DUKE, menorrhagia, and tobacco/THC use disorderwho presented with acute on chronic hypercapnic and hypoxic RF. ABGs were significant for increasing acidosis which improved once intubated in the MICU. DVT ruled out on doppler and patient had intermediate wells score, thus CT PE not obtained. Patient was diuresed aggressively in the setting of acute on chronic HFpEF. Fevers developed 36-48 hours after intubation and patient was initially started on vanc + merrem for aspiration PNA, which was then de-escalated to Unasyn. Infectious workup negative and procal WNL. CBT trial failed twice. As patient could not be weaned off vent despite aggressive diuresis and completion of abx, tracheostomy tube was placed by ENT on 10/04/19. Fevers persisted, so GI was consulted as RUQ US demonstrated possible dilation of CBD. GI suggested fever less likely related to biliary source given normal LFTs. HIDA also negative for acute cholecystit is/biliary obstruction. Patient continued to spike fevers, sputum grew citrobacter koseri and ID wasconsulted. ID suspect fevers 2/2 hypersensitivity reaction likely to beta lactams. Abx discontinued and patient remained afebrile thereafter. Patient weaned off pressors and currently on minimal sedation. Tolerating trach trials throughout the day/night and saturating well. Family care conference held, plans to d/c home with 24/7 care from family members vs lyudmila placement. Patient then tolerated downsizing of trach to 6-0 shiley. Had severe anxiety on TTF, likely related to trach collar and Precedex Withdrawal. Improved on Clonazepam and will add Ramelteon. Added Metoprolol. D/c pepcid and addedpantoprazole. Remains in sinus tachy, will add CTPE. GI consulted for severe GERD on MBS, recommended outpatient endoscopy in 4-6 weeks from discharge as barium swallow study was normal. Placement and funding remain a barrier to discharge Associated attestation - Alma Blevins MD - 10/30/2019 7:40 PM CDTI personally examined the patient on 10/30/[address] Romero's resident note as written.Further history obtained by patient reveals hypercoaguable disorder in family members, with brother having multiple DVTs and protein C deficiency. Continue with heparin gtt for now and anticipate initiation of warfarin soon for INR goal 2-3 once ensure no procedures are needed. I actively participated in the decision-making process. Please see the resident's note for additional details. Danielle Hanks RN - 10/30/2019 3:59 PM CDTCare Management Continued Stay Assessment LOS Day: 39 Estimated /Planned Discharge Date: Re-eden Fiore female 43 year old Date CM/SW last Face to Face completed with patient/family: 10/29 Funding source: Payor: MEDICAID PENDING / Plan: MEDICAID PENDING / Product Type: Pending / PCP:[facility] Patient/Family/MPOA/Caregiver Engaged with Transitional Care Plan: yes Patient/Family/MPOA/Caregiver concurs with proposed discharge plan: yes Name, Relationship to Patient and contact number of individual acting on behalf of the patient: patient Cousin NADIYA AGUILERA [phone] Chief Complaint/Admitting Dx:RESP FAILURE Hospital Problems: Acute on chronic respiratory failure with hypercapnia Essential hypertension Morbid obesity Hypercapnic respiratory failure Cholecystitis Tachycardia Anxiety Pulmonary hypertension Pickwickian syndrome Restrictive airway disease Prolonged Q-T interval on ECG Summary of hospital course: Vinnie Aguilera is a 43 year old morbidly obese female withOSA (noncompliant with BiPAP), severe pHTN,PFTs w/restrictive pattern (2013),chronic hypoxicrespiratory failure(on home3-4L O2 intermittently),Pickwickian syndrome, HTN, CHFpEF (TTE 09/23/19), chronic DUKE, menorrhagia, and tobacco/THC use disorderwho presented with acute on chronic hypercapnic and hypoxic RF. ABGs were significant for increasing acidosis which improved once intubated in the MICU. DVT ruled out on doppler and patient had intermediate wells score, thus CT PE not obtained. Patient was diuresed aggressively in the setting of acute on chronic HFpEF. Fevers developed 36-48 hours after intubation and patient was initially started on vanc + merrem for aspiration PNA, which was then de-escalated to Unasyn. Infectious workup negative and procal WNL. CBT trial failed twice. As patientcould not be weaned off vent despite aggressive diuresis and completion of abx, tracheostomy tube was placed by ENT on 10/04/19. Fevers persisted, so GI was consulted as RUQ US demonstrated possible dilation of CBD. GI suggested fever less likely related to biliary source given normal LFTs. HIDA also negative for acute cholecystitis/biliary obstruction. Patient continued to spike fevers, sputum grew citrobacter koseri and ID was consulted. ID suspect fevers 2/2 hypersensitivity reaction likely to beta lactams. Abx discontinued and patient remained afebrile thereafter. Patient weaned off pressors andcurrently on minimal sedation. Tolerating trach trials throughout the day/night and saturating well.Family care conference held, plans to d/c home with 24/7 care from family members vs lyudmila placement. Patient then tolerated downsizing of trach to 6-0 shiley. Had severe anxiety on TTF, likely related to trach collar and Precedex Withdrawal. Improved on Clonazepam and will add Ramelteon. Added Metoprolol. D/c pepcid and added pantoprazole. Remains in sinus tachy, will add CTPE. GI consulted for severe GERD on MBS Placement and funding remain a barrier to discharge CM/SW Interventions/Resources provided: [facility]ISSES, Initial DC planning. Per spouse She reported patient resides in the home with spouse, cousin, mother and brother. 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 Pt received a paycheck in the month of September. Pt uses o2 concentrator with baseline of 3-4 liters. Prior to admission patient was independent. Pt does not have a PCP and uses local ER for medical care. Per spouse, patient only takes a diuretic which is affordable. Spouse requested SW to call back a later time as she was heading into work.Referred to [facility] and [facility] resources were provided and rx coupon card. 09/26 -spouse, Ac Garcia at [phone] patient will have 05/12 when ready to discharge home 10/02 - discussed home discharge until SSDI/LTC/Medicaid funding could get approved, discussed followup with Patient matters to get funding application started 10/07 - [facility] pending weaning vent for patient to be able to sign for SSDI application(to see if patient would be eligible) as well as [facility] Indigent Application 10/13 - confirmed previous home oxygen set up was a purchase from [facility], SW spoke with PM following up unfunded assistance 10/16 - family meeting with CM/SW, patient, spouse, and md in patient room, agreed to plan of recoveryas much as possible to go home with family support, may need lyudmila for DME/HH pending amount of recovery 10/21 - patient request Cousin Nadiya become her contact and mouths to me that she does not have a spouse as well as doesn't want Ac to be her emergency contact, changed in demographics 10/24- CM assisted in completing screening for medicaid/ssdi, referral to [facility] patient placement made 10/29- CM updated from [facility] patient placement on 2 possible SNF's, awaiting update. CM/SW Interventions/Resources still needed: safe discharge placement Anticipated Discharge Destination: [facility] ([facility]NF) If DC to home, who will support patient: patient states brother would help and cousin Nadiya. Patientis dependent on ambulation and can not currently tolerate standing up. Anticipated DME needs: - Suction Q4H and PRN - c/w Hypersal TID - c/w Duonebs Q6h - c/w mucomyst - plans to downsize trach to 6-0uncuffed shiley -f/uspeechrecs:remain NPO with NGT pending completion of FEES when trach downsized, free [id number] PRN for QOL - c/w Bumex IV 2 mg Q12 H PT/OT to rehabilitate patient to baseline as much as possible Referrals sent: yes If no, why/when will referral be sent:: Has patient been accepted: pending Revised plan if not accepted: seek different placement avenues, see if possible for patient to rehabilitate enough for a safe discharge home. What is the clinical care happening right now that must be done in the hospital and only the hospital: current PE- TTE and repeat echo. If positive then SHAD the following day. Warfarin medical management. Danielle Hanks RN (Allie)-BSN Revenue Accountant [facility] Care Management (not for patient use) Office: [phone] [email or web address] Kam Hodgson MD - 10/30/2019 1:20 PM CDTBrief GI Note: Patient seen and examined, tolerated breakfast well. Barium esophagram normal. Patient can follow upin GI clinic to assess reflux symptoms determine timing/indication of endoscopy. -BID PPI -Elevation of head of bed during meals and 2 hours after -Small frequent meals, low residue diet -GI clinic follow up 4-6 weeks after discharge (Bipin) submit casebook GI to sign off at this time. Please call fellow concrete floor installer with questions or concerns Kam Voss MD PGY 4 Gastroenterology [id number] Danielle Hanks RN - 10/30/2019 10:43 AM CDTCM spoke to [facility]- Dr. Cates ph ([phone]) fx ([phone]) regarding update on search for placement. Dr. Cates stated that 2 SNF's have denied referral but she has 2 SNF's that may be able to take in patient. Both SNFs are reviewing case. ([facility]). ISABEL updated Dr. Cates that patient could DC 10/31 if facility could take on medical management of warfarin. If not, patient to DC next week. Dr. Cates requested updated clinicals to be sent, CM sent clinicals shortly after phone call. Dr cates to update later today. Danielle Hanks RN (Allie)-BSN Revenue Accountant [facility] Care Management (not for patient use) Office: [phone] [email or web address] Kam Hodgson MD - 10/29/2019 6:56 PM CDT Gastroenterology Progress Note Date of Service: 10/29/2019 18:56 Chief Complaint: shortness of breath 24-HOUR EVENTS/SUBJECTIVE: Called back to evaluate due to concern from primary team for esophageal dysphagia. Patient has been tolerating oral feeds since cleared by speech yesterday. She did have sensation of food taking awhileto get past level of trach and occasionally coughs when swallowing but otherwise no issues. No chest pain, she did have heartburn and bloating sensation with tube feeds which she does not have currently. No emesis. No prior history of dysphagia. No melena or hematochezia. PHYSICAL EXAM: Vitals: 10/29/19 0803 10/29/19 1142 10/29/19 1158 10/29/19 1709 BP: 113/80 130/85 128/85 BP Location: Left arm Right arm Right arm Patient Position: Supine Supine Supine Pulse: 102 104 101 100 Resp: 19 18 18 18 Temp: 36.8 C (98.3 F) 35.9 C (96.7 F) 36.2 C (97.1 F) TempSrc: Oral Oral Oral SpO2: 96% 93% 95% 95% Weight: Intake/Output Summary (Last 24 hours) at 10/29/2019 1856 Last data filed at 10/29/2019 0657 Gross per 24 hour Intake Output 1000 ml Net -1000 ml General: comfortable appearing, alert and responding to questions appropriately, coughing frequently HEENT: MMM Cardio: regular rate Resp: tachypneic GI: obese abdomen, soft, non-tender, non-distended Extremities: warm extremities LABS/IMAGING - reviewed ASSESSMENT/PLAN Vinnie Aguilera is a 43 year old female with PMH ETIENNE, severe pHTN, PFTs w/restrictive pattern (2013), chronic hypoxic RF (on 3-4L O2 intermittently), Pickwickian syndrome, HTN, CHFpEF (TTE 09/2018), admitted for hypoxic respiratory failure s/p prolonged intubation with trach for whom GI consulted for: GERD Oropharyngeal dysphagia Patient with evidence of oropharyngeal dysphagia on MBS and on history. No suggestion of esophageal dysphagia. Patient does have some GERD symptoms which are reasonably controlled with BID PPI. Can perform reasonable risk stratification for obstructing lesions, evaluate for esophageal dysmotility with barium esophagram. No indication for inpatient endoscopy at this time. -Barium Esophagram -Continue BID PPI -Small frequent meals, low residue diet when initiating solids. Patient seen and examined with Dr. He. GI to continue to follow. Please call fellow concrete floor installer with questions or concerns Kam Voss MD PGY 4 Gastroenterology [id number] Associated attestation - Carson He MD - 10/29/2019 10:30 PM CDTI examined the patient on 10/29/2019 and actively participated in the decision- making process. I agree with Dr. Voss's note as written. Please see the note for further details. Emily Parsons, VIRGINIE - 10/29/2019 3:09 PM CDTPhysical Therapy Progress Note: Discharge Recommendations: Therapy Needs and Potential: Patient would benefit from continued physical therapy services to address: decline in bed mobility decline in transfers decline in gait and/or balance decreased strength decreased range of motion decreased endurance Challenges to Home Transition: increased risk of falls decreased caregiver availability decreased safety awareness Equipment recommendations: wheelchair, hospital bed and mechanical lift PAIN: -Pain Location: L knee -Pain rating before treatment: 0, After treatment: 5 -Pain Management: Nursing Notified PRECAUTIONS: Weight Bearing Precaution:WBAT General Precautions:PPE used:Gloves and Surgical mask, General, Fall, oxygen:Trach collar Bracing/Cast present or required:N/A S: Patient agreeable to working with PT. O: Patient met Semi reclined in bed. Patient seen for the following: Bed mobility: Rolling: Maximal assist x 2 cued patient on body mechanics Transfers: dependent transfer from bed to chair to bed via Vanessa lift Sit <-> stand from/onto bariatric recliner: Maximal Assist X 4 persons and using Bariatric RW Verbal cueing provided for correct hand placement and use of AD Patient unable to clear buttock off chair Therapeutic exercise: patient educated in Energy conservation, Fall prevention, General strengthening, Positioning, Relaxation/breathing techniques and Safety awareness., instructed patient in the following: ankle pumps,quad sets, glut sets, heel slides, patient/caregiver verbalizes understanding of instructions. After session, patient Semi reclined in bed and call fields provided. A: Patient tolerated session fair. Patient progressing toward goals . P: PT will - progress mobility. Total Timed Tx Codes in Minutes: 58 Min Total Treatment Time in Minutes: 58 Min Emily Parsons PTA Pager #: [phone] Supervising PT Beatrice Bansal Kira June, SITE PROJECT MANAGER - 10/29/2019 2:09 PM [facility] LANG[facility] Daily Progress Note - 10/29/2019 [id number] Vinnie Aguilera : 1975 Age: [age] year old Sex: female SUBJECTIVE: Patient alert/awake upon arrival, agreeable to working with SITE PROJECT MANAGER. She reports feeling anxious about her situation but wants to try and improve. OBJECTIVE: Vinnie Aguilera was seen for 1 SITE PROJECT MANAGER treatment session/s on this date. Treatment was provided due to dysphagia and dysphonia. Patientis a 43 year old female admittedfor management of acute on chronic hypercapnic and hypoxic respiratory failure. PMH significant forOSA, severe pHTN, PFTs w/ restrictive pattern (2013), chronic hypoxic RD (on 3-4L O2 intermittently), Pickwickian syndrome, HTN, CHFpEF, chronic Fe deficiency anemia, menorrhagia, tobacco abuse disorder, THC use disorder, and morbid obesity. Patient urgently intubated on 09/21/19 and unable to wean from vent despite aggressive diuresis and completion of antibiotics. ENT placed 8-0 XL Shiley on 10/04/19.Downsized to a 6-0 cufflessShiley on 10/22/19. MBS (10/28/19) Impressions: moderate-severe pharyngeal dysphagia; silent aspiration of thin liquid (PAS 8); intermittent flash penetration of nectar thick liquid; mild-moderate pharyngeal residue; significant esophageal retention with retrograde flow through the PES into the pharynx FEES (10/22/19) Impressions: severe pharyngeal dysphagia; intermittently silent aspiration of secretions, ice chips, and nectar thick liquids (PAS 7-8); deep penetration (PAS 5) and possible aspiration of puree (PAS 5, ?7-8); mild- moderate diffuse pharyngeal residue; suspected reflux Progress on short term goals was as follows: Swallowing: - Patient will tolerate the safest, least restricted po diet texture without overt s/sx of aspiration or other negative effects on medical condition: Patient observed with trials of nectar thick liquid and chewable solids. She demonstrated an adequate oral phase subjectively and no overt s/sx of aspiration observed. Pt without signs of developing respiratory infection: afebrile since initiating po diet Temp (24hrs), Av.4 C (97.6 F), Min:35.9 C (96.7 F), Max:36.8 C (98.3 F), no leukocytosis. No current chest imaging. (continue goal) - Patient will demonstrate adherence to swallowing precautions while eating a meal/snack with minimal cues 80% of the time: Reviewed swallow precautions with patient, specifically swallowing several times per bite/sips. Patient verbalized understanding and able to demonstrate independently. (progressing, continue goal) - Patient will complete base of tongue, strap muscle, and airway protection exercises with minimal cues 80% of the time: Goal not directly addressed this date. Discussed with patient the importance of continuing to complete swallowing exercises. Patient verbalized understanding and recalled how to complete each exercise.(continue goal) Voice: - Patient will tolerate speaking valve placement and achieve functional voicing without significant change in baseline monitors for 30+ minutes. Patient reports she has been wearing the speaking valve as needed to communicate with family/staff. PMV placed. Patient tolerated speaking valve for entire session without change in baseline monitors or complaints or s/sx of distress, discomfort, or dyspnea. She was able to achieve clearer and stronger phonation with speaking valve, though her vocal quality was noted to be mildly hoarse/breathy. (progressing, continue goal) - Patient will independently place and remove speaking valve. After brief review of how to utilize both hands to don/doff PMV, patient able to place and remove PMV independently. Will continue goal to ensure generalization. (progressing, continue goal) - Patient will independently state 3 safety precautions for use of the speaking valve. Patient recalled that speaking valve is not to be worn when asleep and that she should be suctioned prior to donning PMV as needed. Reviewed other precautions including removing at any sign of respiratory distress, cleaning 1x/day, and wearing the speaking valve during po intake. Patient verbalized understanding and able to teach back 3/3 precautions. (progressing, continue goal) ASSESSMENT: Vinnie Aguilera continues to present with a moderate-severe pharyngeal dysphagia in the settingof compromised respiratory status s/p tracheostomy with impairments in both airway protection and pharyngeal efficiency. MBS on 10/27 showed silent aspiration of thin liquid and mild-moderate pharyngealresidue as well as significant reflux. Patient appears to be tolerating a po diet without observed/reported s/sx of aspiration or signs of developing respiratory infection (i.e. WBC stable, afebril since initiating po), though aspiration cannot be ruled out nor confirmed at the bedside. Education provided re: use and importance of swallow precautions. Based on these observations, she appears safe to continue po diet with strict adherence to texture modifications and swallow precautions. During today's session, patient demonstrated toleration of speaking valve without significant changes in baseline monitors or complaints or s/sx of distress, discomfort, or dyspnea. Patient was able todone/doff speaking valve with verbal and visual cues and she demonstrated improved understanding of s peaking valve precautions. Will continue to address these in therapy. Will continue to follow whilein-house for dysphagia and dysphonia. PLAN: 1. Recommend patient continue a mechanical soft-textured diet with nectar-thick liquids and swallow precautions: sit fully upright/chair, small single sips/bites, alternate sips/bites, remain upright for 30 minutes after meals and swallow 2-3x per bite/sip - To thicken liquids, add 1 pk of ThickenUp Clear to every 4 oz of liquids. - Thickener will not come up on meal tray. Please order from materials management if not stored in [employer] on unit. - Note: pre-packaged tea from kitchen is a 6 oz cup and requires 1.5 pks of thickener. 2. Recommend further esophageal work-up with barium swallow/esophagram and possibly GI consult for further evaluation with EGD/manometry. 3. Recommend elevated head of bed and frequent, thorough oral hygiene care due to risk for aspiration. 4. Recommend patient be closely monitored for s/sx of aspiration or signs of a developing respiratory infection (i.e. Throat clearing/coughing with po, wet/gurgled voice, fever spikes 30-60 mins after meals, increased chest congestion, leukocytosis, etc.). If observed or suspected, recommend patient be made NPO until re-assessed by SITE PROJECT MANAGER. 5. Recommend SITE PROJECT MANAGER therapy 2-5x/wk for 15-45 min/session to address the above goals. Kira June M.S. [facility]-SITE PROJECT MANAGER Speech-Language Pathologist Office: [phone] Pager: [phone]' Charlotte Burton, OT - 10/29/2019 1:15 PM CDTI was present and participated throughout the session and agree with the documentation as written bythe student therapist on the encounter dated 10/29/2019. Halima Kim,OTR [phone] OCCUPATIONAL THERAPY NOTE: Discharge Recommendations: Therapy Needs and Potential:- Patient would benefit from continued skilled occupational therapy services to address: Decline in basic activities of daily living, Decline in instrumental activities of daily living, Decreased strength, Decreased range of motion, Decreased endurance and Caregiver training - Patient demonstrates good potential to improve and meet therapy goals with further skilled occupational therapy services. - Patient appears motivated to improve their B/IADLs and return to their previous level of function. Challenges to Home Transition:- Requires physical assistance for BADLS - Requires physical assistance for IADLS - Increased risk of falls - Environmental barriers Equipment Recommendations:bariatric BSC, WC, Hospital Bed, and Vanessa Lift Precautions: Weight bearing status: WBAT SAAD LE General: PPE Utilized: Gloves and Surgical mask, Fall, Morbid Obesity and Aerosol Trach Bracing: N/A S: Patient agreeable to participate in occupational therapy. Patient wanted to get out of bed today. PAIN Pre-treatment: 0/10 pain. Post-treatment: 5/10 pain at Left knee. Repositioning Provided. O: Patient found semireclining in bed. Patient seen this date for the following: Performed treatment session with Emily Parsons PT and Tammy, Infection Control Rn ADL Training HOB lowered; Patient in supine Rolled with MAX A x2 with draw sheet from right -> left to place vanessa sling under. Patient required Max A on both sides to maintain position. Dependent transfer to bariatric bedside chair with use of vanessa lift. Patient sat upright on bariatric bedside chair to increase postural control. ? Patient sustains static sitting balance x 10 minutes with fluctuating levels of Modified independent in recliner. Grooming: Maximal assist. Patient required assistance to use suction on trach to get saliva and film from opening. Patient performed sit to stand transfer x 1 with Max A x4 and bariatric rollingwalker with a sheet used to facilitate a sling under her glutes to assist with sit to stand. ? First attempt was unable due to inability to sustain weight through bilateral LE. Patient educated on body mechanics and techniques to facilitate LE muscles to perform stand. Patient reported pain on R knee that was too great to attempt another trial of sit to stand. Patient verbally educated to perform chest expansion with use of green theraband throughout the day to increase her UE strength to assistance with future sit to stand transfer to incorporate her UE to push off solid surface. Dependent transfer back to bed due to having to go take a CT scan. Feeding: Setup/SBA while semireclining Patient left semireclining in bed with call fields in reach. Nursing present. A: Patient exhibited Fair+ participation in therapy and responded well to treatment this session. Pain, Poor endurance and Persistent weakness remain(s) a limiting factor. Patient continues to presentwith Decreased independence with ADL, Impaired postural control, Decreased functional ROM and Decreased strength/endurance for functional activity and will benefit from continued OT services to addressabove areas and improve functional status. P: Functional motor treatment, Patient/Caregivier Education, Equipment recommendations, Daily livingactivities, Therapeutic exercises and Neuromuscular Re-Education CHET Hernandez Total Timed Treatment Codes: 60 Min Total Treatment Time: 60 Min Flakito Stahl MD - 10/29/2019 11:46 AM CDT PGY-1 Adebayo Team Progress Note Date of Service: 10/29/2019 11:46 Date of Admission: 09/20/2019 Chief Complaint: dyspnea 24-HOUR EVENTS: - Passed swallow eval SUBJECTIVE: Tolerated feeds, would like to work more with PT. PHYSICAL EXAM: Vitals: 10/29/19 0704 10/29/19 0712 10/29/19 0803 10/29/19 1142 BP: 113/80 130/85 BP Location: Left arm Right arm Patient Position: Supine Supine Pulse: 103 105 102 104 Resp: Temp: 36.8 C (98.3 F) 35.9 C (96.7 F) TempSrc: Oral Oral SpO2: 95% 97% 96% 93% Weight: General: alert and oriented x 4 (person, place, date/time and situation); no significant distress Lungs: upper airway transmitted sounds over anterior lung hirsch, tracheostomy in place with white secretions Cardio: S1, S2 normal; no murmurs, rubs or gallops, regular rate and rhythm Abdomen: soft; non-tender; obese; normoactive bowel sounds Extremities: no clubbing, cyanosis, or edema LABS/IMAGING - reviewed, pertinent results as below: Reviewed BMP NA Date Value 10/29/2019 133 mmol/L (L) 03/19/2014 138 MMOL/L K Date Value 10/29/2019 3.9 mmol/L 03/19/2014 4.2 MMOL/L CALCIUM Date Value 10/29/2019 8.9 mg/dL 03/19/2014 9.2 MG/DL CL Date Value 10/29/2019 86 mmol/L (L) 03/19/2014 106 MMOL/L BUN Date Value 10/29/2019 19 mg/dL 03/19/2014 21 MG/DL CREATININE Date Value 10/29/2019 0.47 mg/dL (L) 03/19/2014 1.25 MG/DL (H) GLUCOSE Date Value 10/29/2019 106 mg/dL 03/19/2014 88 MG/DL CO2 TOTAL Date Value 10/29/2019 40 mmol/L (H) 03/19/2014 25 MMOL/L Repeat EKG: QTc 449, HR 104 ASSESSMENT/PLAN Vinnie Aguilera is a 43 year old female who was admitted to the hospital with: Tachycardia HTN Anxiety Improving anxiety, will wean Clonazepam as tolerated. Patient is moderate risk,will obtain CTPE. - continue with Clonazepam and Ramelteon - Monitor respiratory status - QAM EKG to monitor QTc - CT PE to rule out PE - Metoprolol 25 DUKE GERD MBS showed significant reflux, and patient has a Hx of DUKE. Consulted to GI to evaluate esophagitis. - GI consulted, appreciate recs - barium swallow ordered - Follow up on AUGUSTO, SCL 70 Acute on Chronic Hypercapnic Hypoxic Respiratory Failure 2/2 Acute HFpEF Exacerbation and Untreated ETIENNE/OHS s/p tracheostomy (10/03)- on 3-4L O2 at home Toxic Metabolic Encephalopathy 2/2 Profound Hypercapnia Severe Pulmonary HTN Pickwickian Syndrome Morbid Obesity PFTs w/ Restrictive Pattern, not COPD (2013) - Suction Q4H and PRN, PCT TID - c/w Hypersal TID - c/w Duonebs Q6h - c/w mucomyst - f/u speech recs: remain NPO with NGT,free H2O protocol PRN for QOL - Mechanical soft diet with swallow precautions Anxiety Insomnia THC Use Disorder Tobacco Use Disorder - d/c paxil - increased fluoxetine to 20 mg QD, klonipin 0.5 mg TID - avoid antipsychotics as patient does have prolonged QTc - PT/OT Acute on Chronic Diastolic HF HTN HLD Prolonged QTc - c/w Bumex PO mg Q12 H - Strict I/O - avoid QTc prolonging agents - c/w ASA daily Morbid Obesity Hirsutism - SSI Q6H Disposition Anticipated Discharge Date : 7+ days Barriers to Discharge: patient placement Flakito Gallo MD PGY-1 Neurology Pager number [phone] END OF DAILY PROGRESS NOTE Hospital Course: Vinnie Aguilera is a 43 year old morbidly obese female withOSA (noncompliant with BiPAP), severe pHTN,PFTs w/restrictive pattern (2013),chronic hypoxicrespiratory failure(on home3-4L O2 intermittently),Pickwickian syndrome, HTN, CHFpEF (TTE 09/23/19), chronic DUKE, menorrhagia, and tobacco/THC use disorderwho presented with acute on chronic hypercapnic and hypoxic RF. ABGs were significant for increasing acidosis which improved once intubated in the MICU. DVT ruled out on doppler and patient had intermediate wells score, thus CT PE not obtained. Patient was diuresed aggressively in the setting of acute on chronic HFpEF. Fevers developed 36-48 hours after intubation and patient was initially started on vanc + merrem for aspiration PNA, which was then de-escalated to Unasyn. Infectious workup negative and procal WNL. CBT trial failed twice. As patient could not be weaned off vent despite aggressive diuresis and completion of abx, tracheostomy tube was placed by ENT on 10/04/19. Fevers persisted, so GI was consulted as RUQ US demonstrated possible dilation of CBD. GI suggested fever less likely related to biliary source given normal LFTs. HIDA also negative for acute cholecystit is/biliary obstruction. Patient continued to spike fevers, sputum grew citrobacter koseri and ID wasconsulted. ID suspect fevers 2/2 hypersensitivity reaction likely to beta lactams. Abx discontinued and patient remained afebrile thereafter. Patient weaned off pressors and currently on minimal sedation. Tolerating trach trials throughout the day/night and saturating well. Family care conference held, plans to d/c home with 24/7 care from family members vs lyudmila placement. Patient then tolerated downsizing of trach to 6-0 shiley. Had severe anxiety on TTF, likely related to trach collar and Precedex Withdrawal. Improved on Clonazepam and will add Ramelteon. Added Metoprolol. D/c pepcid and addedpantoprazole. Remains in sinus tachy, will add CTPE. GI consulted for severe GERD on MBS Placement and funding remain a barrier to discharge Associated attestation - Alma Blevins MD - 10/29/2019 3:26 PM CDTI personally examined the patient on 10/29/[address] Gallo's resident note as written. I actively participated in the decision-making process. Please see the resident's note for additional details. Alma Blevins MD 10/29/2019 3:26 PM Kira Juen, SITE PROJECT MANAGER - 10/28/2019 4:49 PM CDT Modified Barium Swallow Speech-Language Pathology Services Vinnie Aguilera : 1975 Age: [age] year old Sex: female SANTAMARIA: 10/28/2019 Time In/Out: [id number] Referring Physician: Jimmy Date of Referral: 10/28/19 Medical Diagnosis: oropharyngeal dysphagia; feeding difficulty Reason for Referral: r/o aspiration; objectively evaluate the oropharyngeal swallow with imaging SUBJECTIVE: Patient alert/awake upon arrival and agreeable to study with SITE PROJECT MANAGER. OBJECTIVE: Vinnie Aguilera was seen for modified barium swallow study (MBS). Patientis a 43 year old female admittedfor management of acute on chronic hypercapnic and hypoxic respiratory failure. PMH significant forOSA, severe pHTN, PFTs w/ restrictive pattern (2013), chronic hypoxic RD (on3-4L O2 intermittently), Pickwickian syndrome, HTN, CHFpEF, chronic Fe deficiency anemia, menorrhagia, tobacco abuse disorder, THC use disorder, and morbid obesity. Patient urgently intubated on 09/21/19and unable to wean from vent despite aggressive diuresis and completion of antibiotics. ENT placed 8-0 XL Shiley on 10/04/19.Downsized to a 6-0 cuffless Shiley on 10/22/19. FEES (10/22/19) Impressions:severe pharyngeal dysphagia; intermittently silent aspiration ofsecretions,ice chips, and nectar thick liquids (PAS 7-8); deep penetration(PAS 5)and possible aspiration of puree (PAS 5, ?7-8); mild- moderate diffuse pharyngeal residue; suspected reflux Pertinent Imaging: Abdominal 1 View - To Confirm Dobhoff / Small-bore (non-styleted) Enteral Feeding Tube Placement. Result Date: 10/19/2019 FINDINGS/IMPRESSION: The Dobbhoff tube terminates below the diaphragm in the distal stomach/first portion of the duodenum. The visualized bowel gas pattern is normal. Bilateral basilar consolidative opacities, right greater than left. Cardiomegaly. Preliminary Report Dictated by Resident: Seferino Mayo I, Marjan Ly MD., have reviewed this study and agree with the above report. Nm Hepatobiliary Result Date: 10/10/2019 No evidence for acute cholecystitis or biliary obstruction. Suspected diverticulum at the second portion of the duodenum. Preliminary Report Dictated by Resident: Lele Lawton I, Karl Wan MD., have reviewed this study and agree with the above report. Xr Chest 1 Vw Result Date: 10/24/2019 Findings and Impression: Patient rotation exaggerates cardiomediastinal silhouette. Heart remains markedly enlarged. There is persistent interstitial abnormality consistent with edema. Tracheostomy appliance projects over the upper left chest (not over the midline-probably related to patient rotation). Central airways are not well seen. Recommend repeating the radiograph into AP to better characterize position of the tracheostomy appliance. No acute osseous abnormality. Widening of the acromiohumeral interval on the right, similar prior. Dictating tube courses along the midline into the left upperquadrant and out of [id number]. Xr Chest 1 Vw Result Date: 10/17/2019 FINDINGS/IMPRESSION: A tracheostomy tube terminates 3.1 cm above the nelson. The nasogastric tube terminates outside the field of view. The lungs are underexpanded and there is marked central vascular congestion. Mild interstitial edema is also noted. There is retrocardiac opacification which may be a combination of atelectasis and pleural fluid however underexpansion the lungs and overlying soft tissue limits evaluation. Underlying infection is not excluded.. Bilateral small pleural effusions are seen. No pneumothorax is seen. The heart is moderately enlarged. A left-sided 6th rib fracture is noted with osseous remodeling. Preliminary Report Dictated by Resident: Margaux Golden I, Jose Clements MD., have reviewed this study and agree with the above report. Xr Chest 1 Vw Result Date: 10/07/2019 Moderate pulmonary edema with small bilateral pleural effusions. Given the patient's history of fever, an underlying infectious process is not excluded. Chest 1 View Result Date: 10/04/2019 Interval worsening of diffuse bilateral reticulonodular and confluent opacities suggesting pulmonaryalveolar and interstitial edema, infection/aspiration is also possible. Bilateral pleural effusions.Preliminary Report Dictated by Resident: Marija Lopes I, Marjan Ly MD., have reviewed this study and agree with the above report. Xr Chest 1 Vw Result Date: 09/30/2019 Mild interval improvement in pulmonary interstitial edema. Stable cardiomegaly. Preliminary Report Dictated by Resident: Marija Lopes I, Kalyani Brown MD., have reviewed this study and agree with the above report. Us Abdomen Limited Result Date: 10/06/2019 Hydropic gallbladder with cholelithiasis and without pericholecystic fluid, wall thickening, or sonographic Infante's sign which makes acute cholecystitis less likely. Additionally, the common bile duct is dilated measuring up to 8 mm in diameter, which raises concern for choledocholithiasis. An MRI of the abdomen with MRCP would be useful for further evaluation. Additionally, the aforementioned MRI of the abdomen could also provide further evaluation for potential acute cholecystitis. If clinical concern for acute cholecystitis is of immediate clinical concern, a HIDA scan would provide a more specific examination for acute cholecystitis. Preliminary Report Dictated by Resident: Ortiz Ramirez I,Sky Jacobs MD., have reviewed this study and agree with the above report. Xr Kub Result Date: 10/18/2019 Impression: The NG tube tip and sidehole are in the stomach. Enlarged liver. Xr Kub Result Date: 10/09/2019 1. Enteric tube terminates in the distal stomach. Xr Kub Result Date: 10/02/2019 Enteric tube with tip in the gastric body. Preliminary Report Dictated by Resident: Blue Machado I,Karl Wan MD., have reviewed this study and agree with the above report. Xr Kub Result Date: 10/02/2019 The NG tube is likely within the proximal stomach and its sidehole at the level of GE junction. Further advancement is recommended. Preliminary Report Dictated by Resident: Neto Lee I, Jose Clements MD., have reviewed this study and agree with the above report. Previous SITE PROJECT MANAGER Services/Swallow History: Patient seen for FEES on 10/22/19 which revealed severe pharyngeal dysphagia c/b aspiration of secretions, ice chips, nectar thick liquids as well as deep penetration and possible aspiration of puree. She was also noted with suspected reflux at that time. Patient has since been seen for dysphagia therapy with initiation of swallowing exercises. Past Medical History: Diagnosis Date Anemia CHF (congestive heart failure) Diastolic heart failure ( EF = 50-55%, NYHA Class III, Stage C HTN (hypertension) Menorrhagia ETIENNE (obstructive sleep apnea) not on CPAP Past Surgical History: Procedure Laterality Date LYMPH NODE BIOPSY 2013 RIGHT HEART CATHETERIZATION 2013 TRACHEOSTOMY N/A 10/04/2019 Surgeon: Main Samuel MD; Location: [facility] VENTRAL HERNIORRHAPHY N/A 05/29/2016 Surgeon: Geraldine Landis; Location: [facility] General Behavior: Alert and Cooperative Hearing: Within Functional Limits for speech Oral Mechanism: Structure: dentate, some missing teeth and dry oral mucosa Function: no facial droop/weakness, no subjective trismus, symmetric labial spread and pucker, lingual protrusion midline with equal lateralization,unable to visualizepalatal retraction, + dysphonia(tracheostomy), no dysarthria Respiratory Status: aerosolized trach collar: 8L/min, 30% FiO2 Orientation/Cognition: - Patient oriented to: person, place, time and situation - Response type: verbal - If verbal, describe speech: clear (with PMV) - Follows 1-step commands: Yes EVALUATION: Patient presented with barium in thin liquids, nectar-thick liquids, puree and chewable solid consistencies viewed under fluoroscopy in the lateral plane with Dr. Colunga from radiology. COMPONENTS AND SCORES ORAL IMPAIRMENT Component 1-Lip Closure: 0= No labial escape Component 2-Tongue Control During Bolus Hold: 0= Cohesive bolus between tongue to palatal seal Component 3-Bolus Preparation/Mastication: 0= Timely & efficient chewing and mashing Component 4-Bolus Transport/Lingual Motion: 0= Brisk tongue action Component 5-Oral Residue: 0= Complete oral clearance Component 6-Initiation of Pharyngeal Swallow: 1= Bolus head in valleculae and 3= Bolus head in pyriforms PHARYNGEAL IMPAIRMENT Component 7-Soft Palate Elevation: 0= No bolus between soft palate (SP)/pharyngeal wall (PW) Component 8-Laryngeal Elevation: 1= Partial superior movement of thyroid cartilage/partial approximation of arytenoids to epiglottic petiole Component 9-Anterior Hyoid Excursion: 1= Partial anterior movement Component 10-Epiglottic Movement: 1= Partial inversion Component 11-Laryngeal Vestibular Closure-Height Swallow: 1= Incomplete; narrow column air/contrast in laryngeal vestibule Component 12-Pharyngeal Stripping Wave: 0= Present - complete Component 13-Pharyngeal Contraction (A/P view only): NA Component 14-Pharyngoesophageal Segment Openin= Partial distension/partial duration;partial obstruction of flow Component 15-Tongue Base (TB) Retraction: 0= No contrast between TB and posterior pharyngeal wall (PW) Component 16-Pharyngeal Residue: 2= Collection of residue within or on pharyngeal structures and LOCATION E: Pyriform Sinuses/Atop the PES ESOPHAGEAL IMPAIRMENT Component 17-Esophageal Clearance Upright Position: 3= Esophageal retention with retrograde flow through PES PENETRATION/ASPIRATION thin liquid: Penetration occurred: after the swallow. Aspiration occurred: after the swallow PAS: 8-enters the airway, passes below the vocal folds and no effort is made to eject nectar thick liquid: Penetration occurred: intermittent, flash, during the swallow and trace amount. Aspiration did not occur: N/A PAS: 2-enters the airway, remains above vocal folds and is ejected puree: Penetration did not occur: N/A. Aspiration did not occur: N/A PAS: 1- material does not enter airway chewable solids: Penetration did not occur: N/A. Aspiration did not occur: N/A PAS: 1-material does not enter airway Penetration/Aspiration Scale Legend: 1-material does not enter airway 2-enters the airway, remains above vocal folds and is ejected 3-enters the airway, remains above vocal cords and is not ejected 4-enters the airway, contacts the vocal folds and is ejected 5-enters the airway, contacts the vocal folds and is not ejected 6-enters the airway, passes below the vocal folds and is ejected into the larynx or out of the airway 7-enters the airway, passes below the vocal folds and is not ejected from the trachea despite effort 8-enters the airway, passes below the vocal folds and no effort is made to eject FACILITATIVE TECHNIQUES ATTEMPTED: bolus modification, supraglottic swallow, mode of presentation, effortful swallow, and chin tuck Images/loops available for review in PACS. Patient/Family Education: Reviewed MBS loops/images. Discussed findings of evaluation, recommendations and SITE PROJECT MANAGER plan of care. Patient/Family Goal: safe po intake ASSESSMENT: Vinnie Aguilera presents with improved swallow function, though still with moderate-severe oropharyngeal dysphagia in the setting of compromised respiratory status s/p tracheostomy with impairments in both airway protection and pharyngeal efficiency. Of note, patient with speaking valve in place for today's study. Patient's oral phase largely intact with no anterior spillage or oral residue observed. Swallow initiation appreciated at the level of the pyriforms with thin liquid and the level of the vallecula with other trialed consistencies. She was observed with poor hyolaryngeal excursion with subsequently reduced distention and duration of PES opening which resulted in residue in the pyriforms/atop the PES. Due to combination of these impairments and suspected posterior glottic gap, patient observed with silent aspiration of thin liquid along the posterior surface of the trachea (PAS 8; even with small/tsp size bolus). The tight breath hold in a supragaglottic strategy did not prevent the bolus from entering the airway during the swallow, however an immediate throat clear/re-swallow didhelp reduce though not completely eliminate aspiration. She demonstrated improved airway protection with nectar thick liquids, though she still had intermittent flash penetration with large/sequential sips dt incomplete laryngeal vestibular closure during the swallow (PAS 2). Patient observed with significant esophageal retention with retrograde flow through the PES with all tested consistencies, requiring multiple swallows and additional time to clear majority of material. The etiology of the patient's dysphagia is likely multifactorial. One component is her inadequate airway protection secondary to incomplete glottic closure s/p tracheostomy and prolonged intubation. However, another major component appears to be pressure issues stemming from esophageal dysfunction which is likely exacerbating her oropharyngeal deficits. While she continues to be at risk for aspiration, she is safe to initiate a po diet with strict adherence to texture modifications and swallow precautions. Recommend further esophageal work-up with esophagram/barium swallow and possibly GI consult for further evaluation with EGD/manometry. She could benefit from continued SITE PROJECT MANAGER services while in-house for dysphagia management. Impressions: moderate-severe pharyngeal dysphagia; silent aspiration of thin liquid (PAS 8); intermittent flash penetration of nectar thick liquid; mild- moderate pharyngeal residue; significant esophageal retention with retrograde flow through the PES into the pharynx Prognosis is fair for safe po intake with adherence to texture modifications and adherence to swallow precautions due to above findings. PLAN: 1. Recommend patient initiate a mechanical soft-textured diet with nectar-thick liquids and swallow precautions: sit fully upright/chair, small single sips/bites, alternate sips/bites, remain upright for 30 minutes after meals and swallow 2-3x per bite/sip 2. Recommend further esophageal work-up with barium swallow/esophagram and possibly GI consult for further evaluation with EGD/manometry. 3. Recommend elevated head of bed and frequent, thorough oral hygiene care due to risk for aspiration. 4. Recommend patient be closely monitored for s/sx of aspiration or signs of a developing respiratory infection (i.e. Throat clearing/coughing with po, wet/gurgled voice, fever spikes 30-60 mins after meals, increased chest congestion, leukocytosis, etc.). If observed or suspected, recommend patient be made NPO until re-assessed by SITE PROJECT MANAGER. 2. Recommend SITE PROJECT MANAGER therapy 2-5x/wk for 15-45 min/session to address the following goals: Swallowing: - Patient will tolerate the safest, least restricted po diet texture without overt s/sx of aspiration or other negative effects on medical condition: - Patient will demonstrate adherence to swallowing precautions while eating a meal/snack with minimal cues 80% of the time: - Patient will complete base of tongue, strap muscle, and airway protection exercises with minimal cues 80% of the time: Kira June M.S. [facility]-SITE PROJECT MANAGER Speech-Language Pathologist Office: [phone] Pager: [phone] Kira June SLP - 10/28/2019 12:37 PM CDTSpeech-Language Pathology 10/28/2019 Per discussion with patient and team, MBS may be difficult to complete d/t body habitus and machine limitations. However, completion of MBS is ideal given limited visualization into airway with FEES and possible/suspected esophageal component. Therefore, will attempt to complete MBS which is currentlyscheduled this date at 1515. Discussed with RN that [facility] will need [facility] to [facility]. If unable to complete MBS, recommend team place order for FEES (newspeech consult with "FEES" in comments) that would likely be completed tomorrow AM. Thanks. Kira June M.S. [facility]-SITE PROJECT MANAGER Speech-Language Pathologist Office: [phone] Pager: [phone] Flakito Gallo MD - 10/28/2019 6:59 AM CDT PGY-1 Adeb[facility] Team Progress Note Date of Service: 10/28/2019 06:59 Date of Admission: 09/20/2019 Chief Complaint: dyspnea 24-HOUR EVENTS: - NAEON SUBJECTIVE: Anxious about swallow study. In NAD. PHYSICAL EXAM: Vitals: 10/27/19 2358 10/28/19 0013 10/28/19 0350 10/28/19 0654 BP: 110/73 BP Location: Right arm Pulse: 94 89 89 98 Resp: Temp: 36.9 C (98.5 F) TempSrc: Oral SpO2: 95% 96% 98% 98% Weight: General: alert and oriented x 4 (person, place, date/time and situation); no significant distress Lungs: upper airway transmitted sounds over anterior lung hirsch, tracheostomy in place with white secretions Cardio: S1, S2 normal; no murmurs, rubs or gallops, regular rate and rhythm Abdomen: soft; non-tender; obese; normoactive bowel sounds Extremities: no clubbing, cyanosis, or edema LABS/IMAGING - reviewed, pertinent results as below: Reviewed BMP NA Date Value 10/27/2019 137 mmol/L 03/19/2014 138 MMOL/L K Date Value 10/27/2019 3.8 mmol/L 03/19/2014 4.2 MMOL/L CALCIUM Date Value 10/27/2019 8.7 mg/dL 03/19/2014 9.2 MG/DL CL Date Value 10/27/2019 91 mmol/L (L) 03/19/2014 106 MMOL/L BUN Date Value 10/27/2019 15 mg/dL 03/19/2014 21 MG/DL CREATININE Date Value 10/27/2019 0.42 mg/dL (L) 03/19/2014 1.25 MG/DL (H) GLUCOSE Date Value 10/27/2019 115 mg/dL (H) 03/19/2014 88 MG/DL CO2 TOTAL Date Value 10/27/2019 39 mmol/L (H) 03/19/2014 25 MMOL/L Repeat EKG: QTc 449, HR 104 ASSESSMENT/PLAN Vinnie Aguilera is a 43 year old female who was admitted to the hospital with: Tachycardia HTN Patient noted to have tachycardia and hypertension since transfer out of the ICU, etiology unclear because her medication regimen had not changed during the transfer, maybe 2/2 anxiety most likely due to trach placement and Precedex withdrawal. Currently on Clonazepam 1 TID and ramelteon 8 qhs. - continue with Clonazepam and Ramelteon - Monitor respiratory status - Repeat EKG - D/c pepcid for QTc prolongation - Added Metoprolol 25 Acute on Chronic Hypercapnic Hypoxic Respiratory Failure 2/2 Acute HFpEF Exacerbation and Untreated ETIENNE/OHS s/p tracheostomy (10/03)- on 3-4L O2 at home Toxic Metabolic Encephalopathy 2/2 Profound Hypercapnia Severe Pulmonary HTN Pickwickian Syndrome Morbid Obesity PFTs w/ Restrictive Pattern, not COPD (2013) - Suction Q4H and PRN - c/w Hypersal TID - c/w Duonebs Q6h - c/w mucomyst - f/u speech recs: remain NPO with NGT,free H2O protocol PRN for QOL - MBS Monday, if unable to to obtain, FEES tomorrow Anxiety Insomnia THC Use Disorder Tobacco Use Disorder - d/c paxil - increased fluoxetine to 20 mg QD, klonipin 1.5mg TID - avoid antipsychotics as patient does have prolonged QTc - PT/OT Acute on Chronic Diastolic HF HTN HLD Prolonged QTc - c/w Bumex IV 2 mg Q12 H - Strict I/O - avoid QTc prolonging agents - c/w ASA daily Morbid Obesity Hirsutism - SSI Q6H Disposition Anticipated Discharge Date : 3-4 days Barriers to Discharge: patient placement Flakito Gallo MD PGY-1 Neurology Pager number [phone] END OF DAILY PROGRESS NOTE Hospital Course: Vinnie Aguilera is a 43 year old morbidly obese female withOSA (noncompliant with BiPAP), severe pHTN,PFTs w/restrictive pattern (2013),chronic hypoxicrespiratory failure(on home3-4L O2 intermittently),Pickwickian syndrome, HTN, CHFpEF (TTE 09/23/19), chronic DUKE, menorrhagia, and tobacco/THC use disorderwho presented with acute on chronic hypercapnic and hypoxic RF. ABGs were significant for increasing acidosis which improved once intubated in the MICU. DVT ruled out on doppler and patient had intermediate wells score, thus CT PE not obtained. Patient was diuresed aggressively in the setting of acute on chronic HFpEF. Fevers developed 36-48 hours after intubation and patient was initially started on vanc + merrem for aspiration PNA, which was then de-escalated to Unasyn. Infectious workup negative and procal WNL. CBT trial failed twice. As patient could not be weaned off vent despite aggressive diuresis and completion of abx, tracheostomy tube was placed by ENT on 10/04/19. Fevers persisted, so GI was consulted as RUQ US demonstrated possible dilation of CBD. GI suggested fever less likely related to biliary source given normal LFTs. HIDA also negative for acute cholecystit is/biliary obstruction. Patient continued to spike fevers, sputum grew citrobacter koseri and ID wasconsulted. ID suspect fevers 2/2 hypersensitivity reaction likely to beta lactams. Abx discontinued and patient remained afebrile thereafter. Patient weaned off pressors and currently on minimal sedation. Tolerating trach trials throughout the day/night and saturating well. Family care conference held, plans to d/c home with 24/ care from family members vs lyudmila placement. Patient then tolerated downsizing of trach to 6-0 shiley. Had severe anxiety on TTF, likely related to trach collar and Precedex Withdrawal. Improved on Clonazepam and will add Ramelteon. Added Metoprolol 12.5. D/c pepcid and added pantoprazole. Placement and funding remain a barrier to discharge Associated attestation - Alma Blevins MD - 10/28/2019 3:53 PM CDTI personally examined the patient on 10/28/[address] Gallo's resident note with the following addition(s): Patient moderate risk for PE in light of tachycardia and immobilization given recent illness and morbid obesity. Although she has been maintained on pharmacologic DVT prophylaxis,the efficacy given her obesity Body mass index is 64.92 kg/m is likely impaired. Furthermore, hersevere pulmonary HTN is new on TTE from last year evaluation. She has other explanations for her symptoms including untreated ETIENNE and has had negative doppler for DVT, but no formal evaluation for PE, which may be prudent given her prolonged hospitalization and current cardiopulmonary symptoms. Plan today is to assess dysphagia today. After procedure, will slowly decrease BZD from tid to bid. Check anti-Xa levels in ensure adequate pharmacologic DVT proph and if low will increase LMWH to biddosing. Will evaluate for PE given indications as discussed above. I actively participated in the decision-making process. Please see the resident's note for additional details. Alma Blevins MD 10/28/2019 3:02 PM Flakito Gallo MD - 10/27/2019 7:21 AM CDT PGY-1 [facility] Team Progress Note Date of Service: 10/27/2019 07:21 Date of Admission: 09/20/2019 Chief Complaint: dyspnea 24-HOUR EVENTS: - NAEON SUBJECTIVE: Patient complains of thirst. Denies any chest pain, worsening dyspnea. Also complains of leakage of tracheostomy secretions PHYSICAL EXAM: Vitals: 10/26/19 2358 10/27/19 0008 10/27/19 0201 10/27/19 0350 BP: (!) 136/92 137/89 BP Location: Right arm Right arm Pulse: 99 101 103 78 Resp: 18 20 22 18 Temp: 37 C (98.6 F) 37 C (98.6 F) TempSrc: Oral Oral SpO2: 97% 98% 93% 98% Weight: General: alert and oriented x 4 (person, place, date/time and situation); no significant distress Lungs: upper airway transmitted sounds over anterior lung hirsch, tracheostomy in place with white secretions Cardio: S1, S2 normal; no murmurs, rubs or gallops, regular rate and rhythm Abdomen: soft; non-tender; obese; normoactive bowel sounds Extremities: no clubbing, cyanosis, or edema LABS/IMAGING - reviewed, pertinent results as below: Reviewed BMP NA Date Value 10/27/2019 137 mmol/L 03/19/2014 138 MMOL/L K Date Value 10/27/2019 3.8 mmol/L 03/19/2014 4.2 MMOL/L CALCIUM Date Value 10/27/2019 8.7 mg/dL 03/19/2014 9.2 MG/DL CL Date Value 10/27/2019 91 mmol/L (L) 03/19/2014 106 MMOL/L BUN Date Value 10/27/2019 15 mg/dL 03/19/2014 21 MG/DL CREATININE Date Value 10/27/2019 0.42 mg/dL (L) 03/19/2014 1.25 MG/DL (H) GLUCOSE Date Value 10/27/2019 115 mg/dL (H) 03/19/2014 88 MG/DL CO2 TOTAL Date Value 10/27/2019 39 mmol/L (H) 03/19/2014 25 MMOL/L Repeat EKG: QTc 449, HR 104 ASSESSMENT/PLAN Vinnie Aguilera is a 43 year old female who was admitted to the hospital with: Tachycardia HTN Patient noted to have tachycardia and hypertension since transfer out of the ICU, etiology unclear because her medication regimen had not changed during the transfer, maybe 2/2 anxiety most likely due to trach placement and Precedex withdrawal. Currently on Clonazepam 1 TID and ramelteon 8 qhs. - continue with Clonazepam and Ramelteon - Monitor respiratory status - Repeat EKG - D/c pepcid for QTc prolongation - Start Metoprolol 12.5 Acute on Chronic Hypercapnic Hypoxic Respiratory Failure 2/2 Acute HFpEF Exacerbation and Untreated ETIENNE/OHS s/p tracheostomy (10/03)- on 3-4L O2 at home Toxic Metabolic Encephalopathy 2/2 Profound Hypercapnia Severe Pulmonary HTN Pickwickian Syndrome Morbid Obesity PFTs w/ Restrictive Pattern, not COPD (2013) - Suction Q4H and PRN - c/w Hypersal TID - c/w Duonebs Q6h - c/w mucomyst - f/u speech recs: remain NPO with NGT,free H2O protocol PRN for QOL - MBS Monday Anxiety Insomnia THC Use Disorder Tobacco Use Disorder - d/c paxil - start fluoxetine 10mg QD, klonipin 1.5mg TID - avoid antipsychotics as patient does have prolonged QTc - PT/OT Acute on Chronic Diastolic HF HTN HLD Prolonged QTc - c/w Bumex IV 2 mg Q12 H - Strict I/O - avoid QTc prolonging agents - c/w ASA daily Morbid Obesity Hirsutism - SSI Q6H Disposition Anticipated Discharge Date : 3-4 days Barriers to Discharge: patient placement Flakito Gallo MD PGY-1 Neurology Pager number [phone] END OF DAILY PROGRESS NOTE Hospital Course: Vinnie Aguilera is a 43 year old morbidly obese female withOSA (noncompliant with BiPAP), severe pHTN,PFTs w/restrictive pattern (2013),chronic hypoxicrespiratory failure(on home3-4L O2 intermittently),Pickwickian syndrome, HTN, CHFpEF (TTE 09/23/19), chronic DUKE, menorrhagia, and tobacco/THC use disorderwho presented with acute on chronic hypercapnic and hypoxic RF. ABGs were significant for increasing acidosis which improved once intubated in the MICU. DVT ruled out on doppler and patient had intermediate wells score, thus CT PE not obtained. Patient was diuresed aggressively in the setting of acute on chronic HFpEF. Fevers developed 36-48 hours after intubation and patient was initially started on vanc + merrem for aspiration PNA, which was then de-escalated to Unasyn. Infectious workup negative and procal WNL. CBT trial failed twice. As patient could not be weaned off vent despite aggressive diuresis and completion of abx, tracheostomy tube was placed by ENT on 10/04/19. Fevers persisted, so GI was consulted as RUQ US demonstrated possible dilation of CBD. GI suggested fever less likely related to biliary source given normal LFTs. HIDA also negative for acute cholecystit is/biliary obstruction. Patient continued to spike fevers, sputum grew citrobacter koseri and ID wasconsulted. ID suspect fevers 2/2 hypersensitivity reaction likely to beta lactams. Abx discontinued and patient remained afebrile thereafter. Patient weaned off pressors and currently on minimal sedation. Tolerating trach trials throughout the day/night and saturating well. Family care conference held, plans to d/c home with 24/7 care from family members vs lyudmila placement. Patient then tolerated downsizing of trach to 6-0 shiley. Had severe anxiety on TTF, likely related to trach collar and Precedex Withdrawal. Improved on Clonazepam and will add Ramelteon. Added Metoprolol 12.5. D/c pepcid and added pantoprazole. Placement and funding remain a barrier to discharge Associated attestation - Alma Blevins MD - 10/28/2019 6:39 AM CDTI personally examined the patient on 10/27/[address] Gallo's resident note with the following addition(s): patient's blood pressure under better control with addition of metoprolol and will increase to 25 mg bid. Additionally, she reports significant depression and anxiety. Started on prozac 10 mg and given improvement in QTc will increase to 20 mg daily. Plan for MBS tomorrow. I actively participated in the decision-making process. Please see the resident's note for additional details. Rachel Friedman - 10/26/2019 10:00 AM CDTThis patient was in the hospital during an [facility] EMR downtime on October 26, 2019. Documentation pertaining to this encounter may be located with the associated scanned documents. Flakito Stahl MD - 10/26/2019 8:58 AM CDT PGY-1 [facility] Team Progress Note Date of Service: 10/26/2019 08:58 Date of Admission: 09/20/2019 Chief Complaint: dyspnea 24-HOUR EVENTS: - NAEON SUBJECTIVE: Less anxious today. In NAD. Would like to start eating food. PHYSICAL EXAM: Vitals: 10/26/19 0325 10/26/19 0735 10/26/19 0749 10/26/19 0811 BP: (!) 143/76 123/78 BP Location: Right arm Patient Position: Pulse: 113 105 100 105 Resp: 20 18 20 21 Temp: 37 C (98.6 F) 36.6 C (97.9 F) TempSrc: Oral Oral SpO2: 98% 93% 95% 97% Weight: General: alert and oriented x 4 (person, place, date/time and situation); no significant distress Lungs: clear to auscultation to anterior hirsch bilaterally, tracheostomy in place with copious non-bloody white secretions Cardio: S1, S2 normal; no murmurs, rubs or gallops, regular rate and rhythm Abdomen: soft; non-tender; obese; normoactive bowel sounds Extremities: no clubbing, cyanosis, or edema LABS/IMAGING - reviewed, pertinent results as below: ASSESSMENT/PLAN Vinnie Aguilera is a 43 year old female who was admitted to the hospital with: Tachycardia HTN Patient noted to have tachycardia and hypertension since transfer out of the ICU, etiology unclear because her medication regimen had not changed during the transfer, maybe 2/2 anxiety most likely due to trach placement and Precedex withdrawal. Currently on Clonazepam 1 TID and ramelteon 8 qhs. - continue with Clonazepam and Ramelteon - Monitor respiratory status - Repeat EKG - D/c pepcid for QTc prolongation - Start Metoprolol 12.5 Acute on Chronic Hypercapnic Hypoxic Respiratory Failure 2/2 Acute HFpEF Exacerbation and Untreated ETIENNE/OHS s/p tracheostomy (10/03)- on 3-4L O2 at home Toxic Metabolic Encephalopathy 2/2 Profound Hypercapnia Severe Pulmonary HTN Pickwickian Syndrome Morbid Obesity PFTs w/ Restrictive Pattern, not COPD (2013) - Suction Q4H and PRN - c/w Hypersal TID - c/w Duonebs Q6h - c/w mucomyst - f/u speech recs: remain NPO with NGT,free H2O protocol PRN for QOL - MBS Monday Anxiety Insomnia THC Use Disorder Tobacco Use Disorder - d/c paxil - start fluoxetine 10mg QD, klonipin 1.5mg TID - avoid antipsychotics as patient does have prolonged QTc - PT/OT Acute on Chronic Diastolic HF HTN HLD Prolonged QTc - c/w Bumex IV 2 mg Q12 H - Strict I/O - avoid QTc prolonging agents - c/w ASA daily Morbid Obesity Hirsutism - SSI Q6H Disposition Anticipated Discharge Date : 3-4 days Barriers to Discharge: patient placement Flakito Gallo MD PGY-1 Neurology Pager number [phone] END OF DAILY PROGRESS NOTE Hospital Course: Vinnie Aguilera is a 43 year old morbidly obese female withOSA (noncompliant with BiPAP), severe pHTN,PFTs w/restrictive pattern (2013),chronic hypoxicrespiratory failure(on home3-4L O2 intermittently),Pickwickian syndrome, HTN, CHFpEF (TTE 09/23/19), chronic DUKE, menorrhagia, and tobacco/THC use disorderwho presented with acute on chronic hypercapnic and hypoxic RF. ABGs were significant for increasing acidosis which improved once intubated in the MICU. DVT ruled out on doppler and patient had intermediate wells score, thus CT PE not obtained. Patient was diuresed aggressively in the setting of acute on chronic HFpEF. Fevers developed 36-48 hours after intubation and patient was initially started on vanc + merrem for aspiration PNA, which was then de-escalated to Unasyn. Infectious workup negative and procal WNL. CBT trial failed twice. As patient could not be weaned off vent despite aggressive diuresis and completion of abx, tracheostomy tube was placed by ENT on 10/04/19. Fevers persisted, so GI was consulted as RUQ US demonstrated possible dilation of CBD. GI suggested fever less likely related to biliary source given normal LFTs. HIDA also negative for acute cholecystit is/biliary obstruction. Patient continued to spike fevers, sputum grew citrobacter koseri and ID wasconsulted. ID suspect fevers 2/2 hypersensitivity reaction likely to beta lactams. Abx discontinued and patient remained afebrile thereafter. Patient weaned off pressors and currently on minimal sedation. Tolerating trach trials throughout the day/night and saturating well. Family care conference held, plans to d/c home with 24/7 care from family members vs lyudmila placement. Patient then tolerated downsizing of trach to 6-0 shiley. Had severe anxiety on TTF, likely related to trach collar and Precedex Withdrawal. Improved on Clonazepam and will add Ramelteon. Added Metoprolol 12.5. D/c pepcid and added pantoprazole. Placement and funding remain a barrier to discharge Associated attestation - Alma Blevins MD - 10/27/2019 7:48 AM CDTI personally examined the patient on 10/26/[address] Gallo's resident note as written. I actively participated in the decision-making process. Please see the resident's note for additional details. Jazmin Mir, OCCUP THER - 10/25/2019 5:08 PM CDT Physical Therapy Progress Note: Discharge Recommendations: Therapy Needs and Potential: Patient would benefit from continued physical therapy services to address: decline in bed mobility decline in transfers decline in gait and/or balance decreased strength decreased range of motion decreased endurance Challenges to Home Transition: increased risk of falls decreased caregiver availability decreased safety awareness Equipment recommendations: wheelchair, hospital bed and mechanical lift PAIN: -Pain Location: sacrum -Pain rating before treatment: does not rate, After treatment: does not rate -Pain Management: Nursing Notified, Repositioning Provided and Patient denies need for pain meds PRECAUTIONS: Weight Bearing Precaution:WBAT General Precautions:PPE used:Gloves and Surgical mask, General, Fall, NG tube, oxygen:Trach collar Bracing/Cast present or required:N/A S: Patient agreeable to working with PT. Patient continues to report not being able to sleep at night. O:Patient met slouched in bed with no sheets in between her buttocks and mattress upon arrival yet again with all sheets bunched up around her torso and no purewick in place. Bariatric chair present upon arrival. Patient seen for the following: Bed mobility: Rolling: Max A X 2 L <-> R Repositioned patient to head of bed: Dependent Cues for proper rolling technique provided throughout Transfers: dependent bed to recliner transfer via free standing vanessa lift performed X 4 persons for patientsafety Sit <-> stand from/onto bariatric recliner: Maximal Assist X 4 persons and using Bariatric RW Patient able to transition into fully erect posture upon second attempt facilitated BLE extension via maximal assist from therapist with hands placed at quads Patient able to tolerate static standing X ~15-18 seconds before needing to sit back down due to fatigue and instability Verbal cueing provided for correct hand placement and use of AD assessed patient to be able to tolerate unsupported trunk sitting while in bariatric recliner [id number] minutes with Mod I Therapeutic exercise: patient educated in Compensatory techniques/adaptive strategies, Deep breathing, Energy conservation, Fall prevention, General strengthening and Safety awareness., instructed patient in the following: ankle pumps, quad sets, glut sets, long arc quads, seated marching, patient/caregiver instructed to perform HEP 4 times per day, 2 X 10 repetitions., patient/caregiver demonstrates understanding of instructions. implemented AAROM when needed After session, patient up in bariatric recliner with vanessa sling still in place and call fields provided. A: Patient tolerated session well. Patient progressing toward goals #2. P: PT will - progress functional mobility per POC. Total Timed Tx Codes in Minutes: 70 Min Total Treatment Time in Minutes: 70 Min Jazmin Mir PTA Pager # [phone] Supervising PT Beatrice Bansal Jazmin Nguyen PTA - 10/25/2019 5:07 PM CDTPTA Progress Note: Patient seen for skilled services this date. Detailed note to follow within 24 hours. Therapy Needs and Potential: Patient would benefit from continued physical therapy services to address:decline in bed mobility decline in transfers decline in gait and/or balance decreased strength decreased range of motion decreased endurance Challenges to Home Transition: increased risk of falls decreased caregiver availability decreased safety awareness Equipment recommendations: wheelchair, hospital bed and mechanical lift Jazmin Mir PTA Pager # [phone] Supervising PT Beatrice Bansal Flakito Stahl MD - 10/25/2019 2:51 PM CDT PGY-1 [facility] Team Progress Note Date of Service: 10/25/2019 14:51 Date of Admission: 09/20/2019 Chief Complaint: dyspnea 24-HOUR EVENTS: - NAEON SUBJECTIVE: Appeared less anxious today, still endorses some anxiety. Main complaint today was acid reflux aftertube feeds PHYSICAL EXAM: Vitals: 10/25/19 1131 10/25/19 1157 10/25/19 1207 10/25/19 1300 BP: (!) 132/93 BP Location: Patient Position: Pulse: 131 134 133 Resp: 22 22 22 Temp: 36.1 C (97 F) TempSrc: Tympanic SpO2: 92% 91% 93% Weight: General: alert and oriented x 4 (person, place, date/time and situation); no significant distress Lungs: clear to auscultation to anterior hirsch bilaterally, tracheostomy in place with copious non-bloody white secretions Cardio: S1, S2 normal; no murmurs, rubs or gallops, regular rate and rhythm Abdomen: soft; non-tender; obese; normoactive bowel sounds Extremities: no clubbing, cyanosis, or edema LABS/IMAGING - reviewed, pertinent results as below: ASSESSMENT/PLAN Vinnie Aguilera is a 43 year old female who was admitted to the hospital with: Tachycardia HTN Patient noted to have tachycardia and hypertension since transfer out of the ICU, etiology unclear because her medication regimen had not changed during the transfer, maybe 2/2 anxiety most likely due to trach placement and Precedex withdrawal. Currently on Clonazepam 1 TID and ramelteon 8 qhs. - continue with Clonazepam and Ramelteon - Monitor respiratory status Acute on Chronic Hypercapnic Hypoxic Respiratory Failure 2/2 Acute HFpEF Exacerbation and Untreated ETIENNE/OHS s/p tracheostomy (10/03)- on 3-4L O2 at home Toxic Metabolic Encephalopathy 2/2 Profound Hypercapnia Severe Pulmonary HTN Pickwickian Syndrome Morbid Obesity PFTs w/ Restrictive Pattern, not COPD (2013) - Suction Q4H and PRN - c/w Hypersal TID - c/w Duonebs Q6h - c/w mucomyst - f/u speech recs: remain NPO with NGT,free H2O protocol PRN for QOL - MBS Monday Anxiety Insomnia THC Use Disorder Tobacco Use Disorder - d/c paxil - start fluoxetine 10mg QD, klonipin 1.5mg TID - avoid antipsychotics as patient does have prolonged QTc - PT/OT Acute on Chronic Diastolic HF HTN HLD Prolonged QTc - c/w Bumex IV 2 mg Q12 H - Strict I/O - avoid QTc prolonging agents - c/w ASA daily Morbid Obesity Hirsutism - SSI Q6H Disposition Anticipated Discharge Date : 3-4 days Barriers to Discharge: patient placement Flakito Gallo MD PGY-1 Neurology Pager number [phone] END OF DAILY PROGRESS NOTE Hospital Course: Vinnie Aguilera is a 43 year old morbidly obese female withOSA (noncompliant with BiPAP), severe pHTN,PFTs w/restrictive pattern (2013),chronic hypoxicrespiratory failure(on home3-4L O2 intermittently),Pickwickian syndrome, HTN, CHFpEF (TTE 09/23/19), chronic DUKE, menorrhagia, and tobacco/THC use disorderwho presented with acute on chronic hypercapnic and hypoxic RF. ABGs were significant for increasing acidosis which improved once intubated in the MICU. DVT ruled out on doppler and patient had intermediate wells score, thus CT PE not obtained. Patient was diuresed aggressively in the setting of acute on chronic HFpEF. Fevers developed 36-48 hours after intubation and patient was initially started on vanc + merrem for aspiration PNA, which was then de-escalated to Unasyn. Infectious workup negative and procal WNL. CBT trial failed twice. As patient could not be weaned off vent despite aggressive diuresis and completion of abx, tracheostomy tube was placed by ENT on 10/04/19. Fevers persisted, so GI was consulted as RUQ US demonstrated possible dilation of CBD. GI suggested fever less likely related to biliary source given normal LFTs. HIDA also negative for acute cholecystit is/biliary obstruction. Patient continued to spike fevers, sputum grew citrobacter koseri and ID wasconsulted. ID suspect fevers 2/2 hypersensitivity reaction likely to beta lactams. Abx discontinued and patient remained afebrile thereafter. Patient weaned off pressors and currently on minimal sedation. Tolerating trach trials throughout the day/night and saturating well. Family care conference held, plans to d/c home with 24/7 care from family members vs lyudmila placement. Patient then tolerated downsizing of trach to 6-0 shiley. Had severe anxiety on TTF, likely related to trach collar and Precedex Withdrawal. Improved on Clonazepam and will add Ramelteon. Placement and funding remain a barrierto discharge Associated attestation - Yael Russell MD - 10/25/2019 7:14 PM CDTI personally examined the patient on 10/25/[address] Gallo's resident note as written. I actively participated in the decision-making process. Please see the resident's note for additional details. Yael Russell MD Hydrology Technician Department of Internal Medicine O: C: F: Charlotte Kim, OT - 10/25/2019 1:55 PM CDTI was present and participated throughout the session and agree with the documentation as written bythe student therapist on the encounter dated 10/25/2019. Halima Kim,OTR [phone] OCCUPATIONAL THERAPY NOTE: Discharge Recommendations: Therapy Needs and Potential:- Patient would benefit from continued skilled occupational therapy services to address: Decline in basic activities of daily living, Decline in instrumental activities of daily living, Decreased strength, Decreased range of motion, Decreased endurance and Decreased postural control - Patient demonstrates good potential to improve and meet therapy goals with further skilled occupational therapy services. - Patient appears motivated to improve their B/IADLs and return to their previous level of function. Challenges to Home Transition:- Requires physical assistance for BADLS - Requires physical assistance for IADLS - Decreased safety awareness/judgement - Increased risk of falls - Environmental barriers Equipment Recommendations:bariatric BSC, WC, Hospital bed, and Vanessa lift Precautions: Weight bearing status: WBAT SAAD LE General: PPE Utilized: Gloves and Surgical mask, Fall,aerosolTrach andmorbid obesity Bracing: N/A S: Patient agreeable to participate in occupational therapy. Patient mentioned she was nervous on standing; however, thankful to be in the bariatric bedside chair today. PAIN Pre-treatment: 7/10 pain at buttocks. Post-treatment: 7/10 pain at buttocks. Repositioning Provided with [employer] in bariatric bedside chair. O: Patient found semireclining in bed. Vital signs stable . Patient seen this date for the following: Performed treatment with PT: Jazmin Mir and Tech: Juan J Alvarado ADL Training/Neuromuscular Re-education HOB lowered; Patient in supine Rolled with MAX A x2 with draw sheet from right -> left to place vanessa sling under. Patient required Max A on both sides to maintain position. Dependent transfer to bariatric bedside chair with use of vanessa lift. Patient sat upright on bariatric bedside chair to increase postural control. Patient sustains static sitting balance x 25-30 minutes with fluctuating levels of Modified independent in recliner but not against the back of chair. Grooming: Maximal assist. Patient required assistance to use suction on trach to get saliva and film from opening. Patient performed sit to stand transfer x2 with Max A x4 and bariatric rollingwalker with a sheetused to facilitate a sling under her glutes to assist with sit to stand. First attempt was unable due to inability to sustain weight through bilateral LE Second attempt patient able to stand >15 seconds with Max A x4 and facilitation at quads. Patient educated on body mechanics and techniques to facilitate LE muscles to perform stand. Patient verbally educated to perform AROM shoulder flexion throughout weekend while seated upright in bedside chair. Patient left reclining in bedside chair with call fields in reach. Vital signs stable and nursing notified.Nursing instructed to use Vanessa for back to bed. Sling positioned under patient. A: Patient exhibited Good participation in therapy and responded well to treatment this session. Patient is progressing toward goal(s) 6 and 7. Poor endurance remain(s) a limiting factor. Patient continues to present with Decreased independence with ADL, Impaired postural control, Decreased functional ROM, Decreased strength/endurance for functional activity and Impaired safety awareness and will benefit from continued OT services to address above areas and improve functional status. P: Functional motor treatment, Patient/Caregivier Education, Equipment recommendations, Daily livingactivities, Therapeutic exercises and Neuromuscular Re-Education Continue OOB ADL activity. Kendy Vicente OTS Total Timed Treatment Codes: 70 Min Total Treatment Time: 70 Min Danielle Santillan RN - 10/25/2019 12:34 PM CDTCM contacted CARLITOSHeidi PikeShira about current screening for medicaid. CM left voicemail stating patient is able to talk with speaking valve now and to complete screening in house. CM forwarded clinical information to [facility] for possible medicaid pending bed upon completion of screening. Patient states she has $0/monthly income and is open to placement if we are able to find somewhere for her to go. UPDATE- CM was on speaker phone with Vera and patient to complete screening. Danielle Hanks RN (Allie)-BSN Revenue Accountant [facility] Care Management (not for patient use) Office: [phone] [email or web address] Cristobal Smith RN - 10/25/2019 11:56 AM CDT [facility] denied [facility] denied [facility] STAFF RELIEF 125 for RN, 150 for PT/OT [facility] 149 for all therapies but can negociate ABSOLUTE KHEIR $95 per nursing visit and then $100 for each PT and OT visit SIGMA No Response [facility]: Purchase Only HD DAC $225 HD RW $225 24" WC $495 26" WC $799 Seat Belt $15 Suction Machine $490 Bariatric HB $2550 Rental Only Bariatric HB $599 1st month $299 2nd month A credit card on file is required Patient exceeds the weight capacity for our manual vanessa lift, we do not do any type of trach collarequipment or supplies If any questions please follow up with our office [phone] [employer] 24 inch Bariatric wheelchair with elevate leg rest : $375 Bariatric Hospital bed: $1600 Bariatric Electric Vanessa Lift: $2000 ( it only comes in electric ) Bariatric Commode: $125 Bariatric Walker with wheels: $125 We will need 3 to 5 business days to have everything available for delivery. Unfortunately, we cannot help this patient with any respiratory or trach needs. [employer]: Wheelchair accessories included in barber for WC Wheelchair 799 (rental barber?) WC elevated leg rest 99$ Hospital Bed 2199 plus 399 delivery fee Medical [employer] [facility] Medical Supply Purchase only No Hospital Beds Available Bipap - Starting at $1299 Auto PAP - Starting at $799 Bariatric Wheelchair - 599$ Heavy Duty Vanessa Lift and Swing, up to 600 lbs - $6995 Drop Arm Commode - 399$ Suction Machine - 449$ [employer] Tr[employer] rental 900 per month with 2 months upfront [employer] Tr[employer] denied as rental is 1200 per month [employer] Purchase 1200 Bipap Charlotte Burton OT - 10/25/2019 10:52 AM CDT10/25/2019 1052 OCCUPATIONAL THERAPY NOTE: Attempted to see patient in AM for OOB training however bariatric recliner not found in room after being ordered yesterday afternoon and after requesting one the previous date when patient transitionedfrom ICU to general floor. Per OCCUP THER note, she called again this am for appropriate bariatric recliner. Patient can NOT be placed in current recliner due to weight limit and due to significant weakness.In addition standing not feasible from bariatric bed height, without platform under her feet. Therapist plan to Vanessa patient to bariatric chair, then stand/attempt stand from chair to BSC to increase safety of all involved due to patient's morbid obesity and weakness. Will check back later for OT as time permits. Halima Kim, OTR [phone] signed by Charlotte Kim OT at 10/25/2019 10:58 AM Jazmin Nguyen PTA - 10/25/2019 10:07 AM CDTPTA NOTE: Attempted to see patient in AM for OOB training however bariatric recliner not found in room after being ordered yesterday afternoon. Patient can NOT be placed in current recliner due to weight limit. Therapist called for bariatric recliner at 10:07 am this date and told one would be paged out. Will check back later for PT as time permits. Will notify Supervising PT with patient current status. Jazmin Mir PTA Pager#: [phone] Supervising PT Beatrice Bansal Elise Campos, SITE PROJECT MANAGER - 10/25/2019 9:30 AM CDTSPEECH LANGUAGE PATHOLOGY Daily Progress Note - 10/23/2019 [id number] Vinnie Aguilera : 1975 Age: [age] year old Sex: female SUBJECTIVE: RN reports patient has been tolerating placement of PMSV for brief amounts of time (~3-5 min). MDs in patient room upon SITE PROJECT MANAGER arrival, patient observed to be wearing PMSV. Patient alert/awake upon arrival, agreeable to working with SITE PROJECT MANAGER. She reports she is eager to eat. OBJECTIVE: Vinnie Aguilera was seen for 1 SITE PROJECT MANAGER treatment session/s on this date. Treatment was provided due to dysphagia and dysphonia. Patientis a 43 year old female admittedfor management of acute on chronic hypercapnic and hypoxic respiratory failure. PMH significant forOSA, severe pHTN, PFTs w/ restrictive pattern (2013), chronic hypoxic RD (on 3-4L O2 intermittently), Pickwickian syndrome, HTN, CHFpEF, chronic Fe deficiency anemia, menorrhagia, tobacco abuse disorder, THC use disorder, and morbid obesity. Patient urgently intubated on 09/21/19 and unable to wean from vent despite aggressive diuresis and completion of antibiotics. ENT placed 8-0 XL Shiley on 10/04/19.Downsized to a 6-0 cufflessShiley on 10/22/19. FEES (10/22/19) Impressions: severe pharyngeal dysphagia; intermittently silent aspiration of secretions, ice chips, and nectar thick liquids (PAS 7-8); deep penetration (PAS 5) and possible aspiration of puree (PAS 5, ?7-8); mild- moderate diffuse pharyngeal residue; suspected reflux Progress on short term goals was as follows: Swallowing: - Patient will verbalize importance of and demonstrate compliance to strict oral hygiene care with minimal cues: Discussed importance of stringent oral hygiene care in an effort to reduce the risk of incurring aspiration-related infection. Pt verbalized understanding, stated no one has assisted w/ oral care yet this AM. SITE PROJECT MANAGER provided patient with a toothbrush, toothpaste and mouthwash. Pt was able to complete oral hygiene care with min supports. (progressing, continue goal) - Patient will complete base of tongue, strap muscle, and airway protection exercises with minimal cues 80% of the time: Pt independently recalled the Kelly and supraglottic swallow exercises introduced/taught during previous SITE PROJECT MANAGER session. SITE PROJECT MANAGER reviewed effortful swallow. Pt independently completed 10 reps of each exercise.SITE PROJECT MANAGER continued to encourage patient to complete 10 reps of these exercises at least 4x/day. Patient v erbalized understanding of information and motivation to complete these independently as she wishes to eat. (progressing, continue goal) - Patient will tolerate therapeutic po trials of ice chips using swallow precautions with SITE PROJECT MANAGER in therapy only without negative effects on medical condition. After oral hygiene care and with speaking valve donned, patient presented with ~10 ice chips to consume in conjunction with dysphagia exercises. No overt throat clearing or coughing exhibited; patient's vocal quality noted to be intermittently wet at baseline so difficulty to assess. WBC WNL. Pt afebrile Temp (72hrs), Av.6 C (97.9 F), Min:36 C (96.8 F), Max:37.2 C (98.9 F). (continuegoal) Voice: - Patient will tolerate speaking valve placement and achieve functional voicing without significant change in baseline monitors for 30+ minutes. Pt wearing PMSV upon clinician arrival. O2 90. Wet/gurgled vocal quality. SITE PROJECT MANAGER doffed PMSV and instructed patient to try to expectorate secretions. Patient was able to produce productive coughs, expectorating copious thick yellow tinged secretions through trach which were suctioned w/ Ernstkauer by SITE PROJECT MANAGER. PMSV donned. Pt tolerated speaking valve for ~15 minutes. O2 sats 95-96 throughout wear. Patient without or s/sx of distress, discomfort, or dyspnea while wearing PMSV. She continues to achieve clearer and stronger phonation with speaking valve, though her vocal quality was noted to be mildly hoarse/breathy and intermittently wet. Deep tracheal suctioning provided after PMSV doffed, w/ return of minimal secretions. (progressing, continue goal) - Patient will independently place and remove speaking valve: Goal not directly addressed this date.(continue goal) - Patient will independently state 3 safety precautions for use of the speaking valve. Patient recalled that speaking valve is not to be worn when asleep. Reviewed other precautions including removing at any sign of respiratory distress, suctioning before PMV placement, cleaning 3x/day, and how to place/remove valve. Patient verbalized understanding and able to teach back 3/4 precautions. (progressing, continue goal) ASSESSMENT: Vinnie Aguilera continues to present with a severe pharyngeal dysphagia as a result of general deconditioning and compromised respiratory status s/p tracheostomy in the setting of prolonged hospitalization with impairments in both airway protection and pharyngeal efficiency. FEES on 10/21 showed aspiration of secretions, ice chips, and nectar thick liquids. Patient has exhibited good participationin dysphagia therapy with demonstration and report of adequate carryover w/ recommendations re: therapeutic exercises. Patient remains at high risk for aspiration at this time. Recommend she remain NPOwith continued use of short-term DINA (DHT in place). Will plan to continue dysphagia therapy with con sideration of repeat instrumental assessment early next week (Monday, Monday). Patient continues totolerate placement of speaking valve w/o significant changes in baseline monitors or complaints or s/sx of distress, discomfort, or dyspnea. However, patient will require at least intermittent supervision d/t her copious secretions which was discussed with RN. She was noted to be able to expectorate/manage these realtively better this date w/o need for deep tracheal suctioning. Plan to continue education re: speaking valve precautions and how to place/remove PMV in therapy. Will continue to follow while in-house. PLAN: 1. Recommend patient remain NPO and continue with alternative means of nutrition/hydration (DHT in place). 2. Recommend elevated head of bed and frequent, thorough oral hygiene care due to high risk for aspiration and likelihood that patient is aspirating her secretions. 3. Recommend patient wear speaking valvewith at least intermittent supervisionto achieve voicingwith the following precautions: - Suctioning must be completed prior to PMV placement - Remove at any sign of respiratory distress or discomfort - Do not wear when sleeping - Clean 2x/day with warm water and hand soap or more with increased secretions - Secure trach baseplate with one hand while donning/doffing the speaking valve with the other hand 4. Recommend SITE PROJECT MANAGER therapy 2-5x/wk for 15-45 min/session while in-house to address the above goals. 5. Patient will eventually benefit from a repeat instrumental swallow study as clinically indicated. Elise Byers M.S. [facility]-SITE PROJECT MANAGER Speech Language Pathologist Pager #: [phone] Office #: [phone] Veronika Almanza SLP - 10/24/2019 2:40 PM CDTSpeech-Language Pathology 10/24/2019 1440 SITE PROJECT MANAGER attempted to see patient for dysphagia/dysphonia treatment this afternoon however patient just beginning session with PT/OT at the time. Will return to see patient later today or tomorrow as time permits. Veronika Huber MS, [facility]-SITE PROJECT MANAGER Speech Language Pathology Pager: [phone] Office Number: [phone] signed by Veronika Huber SLP at 10/24/2019 2:50 PM Brenda Wong DO - 10/24/2019 2:39 PM CDT PGY-1 [facility] Team Progress Note Date of Service: 10/24/2019 14:39 Date of Admission: 09/20/2019 Chief Complaint: dyspnea 24-HOUR EVENTS: - transferred from MICU to [facility] Team SUBJECTIVE: Patient is very anxious, states she has not been able to sleep in several days. She also describes significant pain in her buttocks from her positioning in bed. PHYSICAL EXAM: Vitals: 10/24/19 1247 10/24/19 1253 10/24/19 1357 10/24/19 1415 BP: (!) 144/99 BP Location: Right arm Patient Position: Supine Pulse: 120 118 118 122 Resp: 18 20 20 Temp: 36 C (96.8 F) TempSrc: Oral SpO2: (!) 85% 90% 90% 93% Weight: General: alert and oriented x 4 (person, place, date/time and situation); no significant distress Lungs: clear to auscultation bilaterally, tracheostomy in place with copious non-bloody secretions Cardio: S1, S2 normal; no murmurs, rubs or gallops, regular rate and rhythm Abdomen: soft; non-tender; obese; normoactive bowel sounds Extremities: no clubbing, cyanosis, or edema LABS/IMAGING - reviewed, pertinent results as below: ASSESSMENT/PLAN Vinnie Aguilera is a 43 year old female who was admitted to the hospital with: Tachycardia HTN Patient noted to have tachycardia and hypertension since transfer out of the ICU, etiology unclear because her medication regimen had not changed during the transfer, maybe 2/2 anxiety as patient is expressing desire to go back to the ICU because she was more comfortable there. - EKG - telemetry x24hr Acute on Chronic Hypercapnic Hypoxic Respiratory Failure 2/2 Acute HFpEF Exacerbation and Untreated ETIENNE/OHS s/p tracheostomy (10/03)- on 3-4L O2 at home Toxic Metabolic Encephalopathy 2/2 Profound Hypercapnia Severe Pulmonary HTN Pickwickian Syndrome Morbid Obesity PFTs w/ Restrictive Pattern, not COPD (2013) - Suction Q4H and PRN - c/w Hypersal TID - c/w Duonebs Q6h - c/w mucomyst - f/u speech recs: remain NPO with NGT,free H2O protocol PRN for QOL Anxiety Insomnia THC Use Disorder Tobacco Use Disorder - d/c paxil - start fluoxetine 10mg QD, klonipin 1.5mg TID - avoid antipsychotics as patient does have prolonged QTc - PT/OT Acute on Chronic Diastolic HF HTN HLD Prolonged QTc - c/w Bumex IV 2 mg Q12 H - Strict I/O - avoid QTc prolonging agents - c/w ASA daily Morbid Obesity Hirsutism - SSI Q6H Disposition Anticipated Discharge Date : 3-4 days Barriers to Discharge: patient placement Brenda Romero DO Internal Medicine, PGY1 [facility] Team Pager# [phone] END OF DAILY PROGRESS NOTE Hospital Course: Vinnie Aguilera is a 43 year old morbidly obese female withOSA (noncompliant with BiPAP), severe pHTN,PFTs w/restrictive pattern (2013),chronic hypoxicrespiratory failure(on home3-4L O2 intermittently),Pickwickian syndrome, HTN, CHFpEF (TTE 09/23/19), chronic DUKE, menorrhagia, and tobacco/THC use disorderwho presented with acute on chronic hypercapnic and hypoxic RF. ABGs were significant for increasing acidosis which improved once intubated in the MICU. DVT ruled out on doppler and patient had intermediate wells score, thus CT PE not obtained. Patient was diuresed aggressively in the setting of acute on chronic HFpEF. Fevers developed 36-48 hours after intubation and patient was initially started on vanc + merrem for aspiration PNA, which was then de-escalated to Unasyn. Infectious workup negative and procal WNL. CBT trial failed twice. As patient could not be weaned off vent despite aggressive diuresis and completion of abx, tracheostomy tube was placed by ENT on 10/04/19. Fevers persisted, so GI was consulted as RUQ US demonstrated possible dilation of CBD. GI suggested fever less likely related to biliary source given normal LFTs. HIDA also negative for acute cholecystit is/biliary obstruction. Patient continued to spike fevers, sputum grew citrobacter koseri and ID wasconsulted. ID suspect fevers 2/2 hypersensitivity reaction likely to beta lactams. Abx discontinued and patient remained afebrile thereafter. Patient weaned off pressors and currently on minimal sedation. Tolerating trach trials throughout the day/night and saturating well. Family care conference held, plans to d/c home with 24/7 care from family members vs lyudmila placement. Patient then tolerated downsizing of trach to 6-0 shiley. Associated attestation - Yael Russell MD - 10/25/2019 12:32 AM CDTI personally examined the patient on 10/24/[address] Romero's resident note with the following addition(s): Pt with primary complaint of anxiety since transfer to the floor. Noted to be uncomfortable, with tachycardia and hypertension. This may related be withdrawal from sedation since patient was on Precedex for a prolonged period of time. Will treat with benzodiazepines and wean as pierre erated. I actively participated in the decision-making process. Please see the resident's note foradditional details. Yael Russell MD Hydrology Technician Department of Internal Medicine O: C: F: Marialuisa Olea RD - 10/24/2019 2:37 PM CDT Medical Nutrition Therapy- Progress Note: Malnutrition Assessment: Nutritional Diagnosis: None SGA Rating: Well-Nourished, Normal History of Present Illness Patient admitted due to dyspnea and acute on chronic hypercapnic and hypoxic respiratory failure dueto HF exacerbation. Patient intubated upon arrival. Shortly after intubation and sedation with propofol, patient became hypotensive requiring peripheral levophed to maintain MAP >60. Patient is also11 pack per year smoker also with marijuana use. Patient also with uncompensated respiratory acidosis, severe pulmonary hypertension, and toxic metabolic encephalopathy. NG tube placed 09/20/19. Patient also with iron deficiency. Patient also with chronic volume overload and aspiration pneumonia. Patient with toxic metabolic encephalopathy due to profound hypercapnia. Patient now with trach and no longer requiring vent. Patient now moved to the floor. GI and Nutrition Related Findings: Symptoms: N/A Difficulty: N/A GI tract alteration: N/A Alternative means of nutrition: DHT General: N/A Lab and Medical Test Results: NA Date Value 10/23/2019 134 mmol/L (L) 03/19/2014 138 MMOL/L K Date Value 10/23/2019 4.1 mmol/L 03/19/2014 4.2 MMOL/L CALCIUM Date Value 10/23/2019 8.8 mg/dL 03/19/2014 9.2 MG/DL GLUCOSE Date Value 10/23/2019 123 mg/dL (H) 03/19/2014 88 MG/DL Weight History: Wt Readings from Last 20 Encounters: 10/15/19 199.4 kg (439 lb 9.6 oz) 10/06/18 225.4 kg (496 lb 14.7 oz) 05/01/18 218 kg (480 lb 9.6 oz) 06/14/16 183.7 kg (405 lb) 05/29/16 186 kg (410 lb) 10/14/15 165.9 kg (365 lb 11.2 oz) 09/07/15 165.6 kg (365 lb) 03/19/14 173.3 kg (382 lb) 03/12/14 172.8 kg (380 lb 14.4 oz) Inflammatory Markers: Increased Heart Rate, Hyperglycemia Current Dietary Order(s): NPO Except Meds Diet. Nurse to ask primary team when feeding may resume. Beneprotein - Amount: Other-See Comments (3 packets); Administration Instructions: Bolus, dissolve in 50 mL water and administer via feeding or gastric tube Jevity 1.2 Cassandra (1.2 kcal/mL, protein 18.5% of kcal) EMR documented food allergies/intolerance/cultural preferences: will confirm at later visit Nutrition & Diet History: Spoke with patient's nurse today. Per nurse, patient with no complaints of diarrhea and tolerating TF well with no issues. Patient's tube feed was advanced to goal today with no issues as well. RN did note that she recently stopped patient's feeds to give her a chance to lay down for a little while. RN reports that patient with no bowel movement today but had one yesterday. Continue with current bowel regimen including miralax and senokot. RD will continue to follow. Estimated Daily Nutritional Needs: MSJ (w/o activity factor): 2723 kcal/day = 14 kcal/kg MSJ x 1.2: 3268 kcal/day = 16 kcal/kg Protein: 21% of kcal need/day = >165 g/day = 0.7 g/kg current wt = >2.5 g/kg IBW Fluid: <2000 mL/day or per MD; adjust per acute needs (heart failure) Nutrition Diagnosis: Inadequate oral intake related to recent intubation as evidenced by need for TF.-resolving Nutrition Plan of Care: Intervention(s): 1. Continue TF with Jevity 1.2at 90ml/hr goal rate x 24 hours- 2160ml total volume -TF will provide 2592kcal, 120gm protein, 1743ml free water -TF+ Beneprotein will provide 2817 kcal, 174 gm protein 2. Recommend a minimum of 30 ml water flush every 4 hours to help prevent tube occlusions -no additional flushes needed, TF meets needs 3. Add 3 packets beneprotein TID to help meet protein needs -50 ml flush before and after (900 ml fluid total) -54 gm protein + 225 kcal 4. Continue with current bowel regimen-adjust as needed Goal(s): 1. Patient will be able to meet 100% of protein, calorie, and fluid needs via TF. D/C Planning: Continue with current recommendations. Nutrition Monitoring and Evaluation: A registered dietitian will f/u as indicated to report nutrition related information and to revise the recommended nutrition intervention(s); please call with questions or concerns, thank-you. Marialuisa Olea MS, RD, LD Clinical Dietitian RD Office: [phone] Jazmin Mir PTA - 10/24/2019 2:10 PM CDT Physical Therapy Progress Note: Discharge Recommendations: Therapy Needs and Potential: Patient would benefit from continued physical therapy services to address:decline in bed mobility decline in transfers decline in gait and/or balance decreased strength decreased range of motion decreased endurance Challenges to Home Transition: increased risk of falls decreased caregiver availability decreased safety awareness Equipment recommendations: wheelchair, hospital bed and mechanical lift PAIN: -Pain Location: sacrum -Pain rating before treatment: does not rate, After treatment: does not rate -Pain Management: Nursing Notified, Repositioning Provided and Patient denies need for pain meds PRECAUTIONS: Weight Bearing Precaution:WBAT General Precautions:PPE used:Gloves and Surgical mask, General, Fall, NG tube, oxygen:Trach collar Bracing/Cast present or required:N/A S: Patient agreeable to working with PT. Patient slightly more agitated and frustrated today voicing increased want to get into the recliner and out of the bed however unable to transfer as bariatric recliner not available at this time. Patient reports not being able to sleep for 2 days now and is asking for increased medication to allow her to rest. RN notified. O: Patient met slouched in bed with no sheets in between her buttocks and mattress upon arrival withall sheets and soiled vanessa sling bunched up around her torso. Patient seen for the following: Bed mobility: Rolling: L <-> R with Maximal Assist towards each side Reclined to sitting: Maximal Assist X 2 for trunk and BLE management Scooting to edge of bed: Maximal Assist X 2-3 due to lack of draw sheet Sit to supine: Maximal Assist X 3 persons for trunk and BLE management for safety Repositioned patient to head of bed: Dependent assessed patient for dizziness, patient denies introduced 4" box for BLE positioning as well as to promote increased anterior trunk lean as patient presents with increased tendency for posterior and R lateral trunk lean Cued patient on obtaining and maintaining midline throughout task Patient able to tolerate sitting EOB for >30 minutes total with fluctuating assistance levels from CGA <-> Supervision Analyzed patient's sitting balance to also fluctuate from fair- <-> fair+ with decreased posture noted as fatigue increases Transfers: attempted sit -> stand from elevated bed with 4" box under patien'ts feet using of bariatric RW with Max A X 4 persons however patient only able to clear buttocks partially X 2 instances Static/dynamic standing balance: unable at this time Verbal cueing provided for correct hand placement and correct use of AD implemented forward and slightly upward gaze when attempting to stand to increase line of sight and buttocks clearance cued patient on paced, deep breathing as her O2 saturation began to decrease down to 90% upon exertion with slow rebound to 92% with rest Therapeutic exercise: patient educated in Compensatory techniques/adaptive strategies, Deep breathing, Fall prevention,General strengthening, Positioning and Safety awareness., instructed patient in the following: anklepumps, quad sets, glut sets, long arc quads, patient/caregiver instructed to perform HEP 4 times per day, 10-15 repetitions., patient/caregiver verbalizes understanding of instructions. upgraded reps from 10 to 15 for increased strength and mobility After session, patient Supine, with O2 saturation steadily reading 88%. RN notified of O2 saturation and alejandra contact RT and call fields provided. A: Patient tolerated session fairly well. Patient progressing toward goals #1, #2, however is unableto come into complete standing position due to decreased BLE strength. P: PT will attempt to transfer via vanessa lift to bariatric recliner for patient comfort if available. Total Timed Tx Codes in Minutes: 86 Min Total Treatment Time in Minutes: 86 Min Jazmin Mir PTA Pager # [phone] Supervising PT Beatrice Bansal Charlotte Burton, OT - 10/24/2019 2:10 PM CDTI was present and participated throughout the session and agree with the documentation as written bythe student therapist on the encounter dated 10/24/2019. Halima Kim,OTR [phone] OCCUPATIONAL THERAPY NOTE: Discharge Recommendations: Therapy Needs and Potential:- Patient would benefit from continued skilled occupational therapy services to address: Decline in basic activities of daily living, Decline in instrumental activities of daily living, Decreased strength, Decreased range of motion and Decreased endurance - Patient demonstrates good potential to improve and meet therapy goals with further skilled occupational therapy services. - Patient appears motivated to improve their B/IADLs and return to their previous level of function. Challenges to Home Transition:- Requires physical assistance for BADLS - Requires physical assistance for IADLS - Increased risk of falls - Environmental barriers Equipment Recommendations:bariatric BSC, WC, Hospital bed, and Vanessa lift Precautions: Weight bearing status: WBAT SAAD LE General: PPE Utilized: Gloves and Surgical mask and Fall, aerosolTrach andmorbid obesity Bracing: N/A S: Patient agreeable to participate in occupational therapy. Patient requested to sit in bedside chair; however, a bariatric chair was not available in room. OT ordered bariatric BSC, bedside chair andGeomat. PAIN Patient denies any pain this date. O: Patient found semireclining in bed. Nursing present and Vital signs stable . Patient seen this date for the following: Saw patient in conjunction with PT - Refer to Jazmin Mir PT progress note ADL Training/Neuromuscular Re-education HOB elevated; Supine to sit: Max x 2-3; Scoot to EOB: Max x2 Performed ADL activity at EOB Grooming: SBA/Setup. Patient performed fash washing and brushing teeth while seated EOB. Patient attempted transfer from sit to stand x 5 with bariatric RW and Max x 4. Foot plate placedto have elevated surface due to bed height. Patient educated on hand placement and body mechanics before transfer Patient unable to sustain weight through Bilateral LE. Patient required rest breaks in between each trial from sit to stand. Patient Transferred EOB to supine Max x4 Patient dependent x 4 with bed mobility and scooting up with bed in reverse trendelenburg. Nursing notified on position and vitals at end of session. Patient left semireclining in bed with call fields in reach. Vital signs stable and Nursing notified.. A: Patient exhibited Good participation in therapy and responded well to treatment this session. Poor endurance and Persistent weakness remain(s) a limiting factor. Patient continues to present with Decreased independence with ADL, Impaired postural control, Decreased functional ROM and Decreased stre ngth/endurance for functional activity and will benefit from continued OT services to address above areas and improve functional status. P: Functional motor treatment, Patient/Caregivier Education, Equipment recommendations, Daily livingactivities, Therapeutic exercises and Neuromuscular Re-Education CHET Hernandez Total Timed Treatment Codes: 86 Min Total Treatment Time: 86 Min Eric Conner MD - 10/23/2019 8:27 PM CDT LAURIE TEAM PGY-3 Progress/acceptance Note Date of Service: 10/23/2019 20:27 Chief Complaint: : Acute on Chronic Hypercapnic Hypoxic Respiratory Failure 2/2 Untreated ETIENNE/OHS and Acute on Chronic HFpEF 24-HOUR EVENTS: Transferred form ICU SUBJECTIVE: Patient reports that she has anxiety and that the ng feeling is making her sick. PHYSICAL EXAM: Temp: [36.5 C (97.7 F)-36.9 C (98.4 F)] Heart Rate (monitor): [67-117] Pulse: [59-119] Resp: [8-22] BP: (116-159)/(69-100) MAP (mmHg): [82-120] Intake/Output Summary (Last 24 hours) at 10/23/20192026 Last data filed at 10/23/2019 0800 Gross per 24 hour Intake 70 ml Output 1650 ml Net -1580 ml General: no apparent distress HEENT: trach and NGT on place, sweaty Lungs: distant breath sounds Cardio: rrr Abdomen: obese Extremities: no clubbing, cyanosis, or edema; LABS/IMAGING - reviewed, pertinent results as below: Recent Labs 10/12/19 0508 10/13/19 0211 10/14/19 0539 10/18/19 0537 10/20/19 0608 WBC 5.15 5.32 5.85 5.49 5.52 HGB 7.3* 7.6* 7.9* 8.1* 8.6* HCT 29.4* 30.5* 31.3* 31.7* 32.5* MCV 85.5 85.2 86.7 90.8 87.4 PLT 319 317 322 248 238 Recent Labs 10/14/19 0539 10/15/19 0526 10/18/19 0800 10/21/19 0530 10/23/19 0518 NA 146* 144 144 138 134* K 3.9 3.7 3.2* 4.3 4.1 CA 9.1 8.9 6.8* 8.9 8.8 CL 109* 105 112* 100 94* BUN 23 22 21 19 14 CREAT 0.72 0.63 0.33* 0.45* 0.37* GLU 135* 160* 115* 135* 123* TCO2 34* 32* 31 36* 38* MG 2.0 1.9 1.7 2.1 1.7 Recent Labs 09/30/19 0317 10/06/19 0349 10/08/19 0507 10/09/19 0400 10/10/19 0223 ALB 3.1* 3.0* 3.0* 3.0* 2.8* TPRO 7.5 7.2 7.5 7.5 7.2 BILIT 1.0 0.8 0.8 0.8 0.9 BILIUNCON 0.6 0.2 0.2 0.4 0.2 BILICONJ 0.0 0.0 0.0 0.0 0.0 ALT 11 12 14 16 14 AST 51* 72* 59* 49* 43* ALKPHOS 46 51 49 53 51 Recent Labs 09/20/19 2222 PTINR 1.3 PTPAT 14.3* APTTPAT 27 ASSESSMENT/PLAN Vinnie Aguilera is a 43 year old female admitted to the hospital with: Acute on Chronic Hypercapnic Hypoxic Respiratory Failure 2/2 Acute HFpEF Exacerbation and Untreated ETIENNE/OHS s/p tracheostomy (10/03)- on 3-4L O2 at home Severe Pulmonary HTN Pickwickian Syndrome Morbid Obesity PFTs w/ Restrictive Pattern, not COPD (2013) Tobacco Use Disorder Pt completed abx course for aspiration PNA. Was unable to be weaned off vent and had tracheostomy byENT on 10/04/19. Patient has been tolerating trach trials throughout the day with success. Family/Social work/manager supportbiofuels product manager 10/17/19 to discuss plans of care. Goal to find charitable funding and accepting facility or to stabilize patient enough to go home with community support. - c/w trach - ABG PRN - Suction Q4H and PRN - c/w Hypersal TID - c/w Duonebs Q6h - c/w mucomyst - Trach downsized to 6-0 uncuffed shiley - f/u speech recs: remain NPO with NGT, free H2O protocol PRN for QOL Toxic Metabolic Encephalopathy 2/2 Profound Hypercapnia THC Use Disorder Anxiety Patient obtunded upon arrival to MICU 2/2 Mikey >160 and was intubated. Originally required increased sedation for agitation, now on minimal sedation. Her mentation has improved and she is now alert and responds by mouthing, writing, and use of letter board. - avoid sedating medications - avoid antipsychotics as patient does have prolonged QTc - c/w paxil 20mg, - PT/OT Acute on Chronic Diastolic HF HTN HLD Prolonged QTc Difficult to quantify diffuse LE edema up to thighs b/l. TTE 09/23/19 EF 55-60%, RVSP significantly elevated and RV moderately dilated. Did not comment on diastolic function, study was technically difficult. MAPs >60 off pressors. Has net negative of 13L and lost ~50 lbs since admission. - c/w Bumex IV 2 mg Q12 H - Strict I/O - avoid QTc prolonging agents - c/w ASA daily Elevated AST Hepatic steatosis Constipation - resolved RUQ U/S demonstrating possible dilation of CBD. GI consulted; suggest fevers are less likely from biliary source given normal LFTs, limit PPI use as known association with drug fever, and HIDA scan negative for acute cholecystitis/biliary obstruction. - bowel regimen with miralax and senokot Uncompensated Respiratory Acidosis- resolved JOSELUIS and Hypernatremia 2/2 Diuresis - resolved Hypokalemia - resolved - Monitor BMP qMWF - Replete electrolytes as needed - c/w Bumex as above Aspiration Pneumonia s/p Abx Initially on vanc/freida and later de-escalated to unasyn, completed course of abx on 10/01. CXR s/p trach with interval worsening of b/l opacities concerning for interstitial edema vs infection/aspiration. Sputum culture grew citrobacter koseri. ID consulted; suggest no active infection and fevers likely 2/2 drug reaction. Antibiotics d/c'd and patient remains afebrile. - Monitor fevers - If patient has significant fever (>103F), repeat blood cx x2, UA/Ucx, sputum cx Morbid Obesity Hirsutism Stable. Latest Hgb A1c 5.3. - SSI Q6H PAIN: Controlled Tylenol Prophylaxis: DVT- heparin Stress Ulcer: pantoprazole Code Status: addressed: full Disposition Anticipated Discharge Date : +2 Barriers to Discharge: social work to find funding for patient to go to a facility or to go home with community support Eric Barakat MD, PhD PGY-3 Internal Medicine Doctor# [id number] Page: [phone] END OF DAILY PROGRESS NOTE HOSPITAL COURSE Vinnie Aguilera is a 43 year old morbidly obese female withOSA (noncompliant with BiPAP), severe pHTN,PFTs w/restrictive pattern (2013),chronic hypoxic respiratory failure (on home 3-4L O2 in termittently),Pickwickian syndrome, HTN, CHFpEF (TTE 09/23/19), chronic DUKE, menorrhagia, and tobacco/THC use disorderwho presented with acute on chronic hypercapnic and hypoxic RF. ABGs were significant for increasing acidosis which improved once intubated in the MICU. DVT ruled out on doppler andpatient had intermediate wells score, thus CT PE not obtained. Patient was diuresed aggressively in the setting of acute on chronic HFpEF. Fevers developed 36-48 hours after intubation and patient was initially started on vanc + merrem for aspiration PNA, which was then de-escalated to Unasyn. Infectious workup negative and procal WNL. CBT trial failed twice. As patient could not be weaned off vent despite aggressive diuresis and completion of abx, tracheostomy tube was placed by ENT on 10/04/19. Fevers persisted, so GI was consulted as RUQ US demonstrated possible dilation of CBD. GI suggested fever less likely related to biliary source given normal LFTs. HIDA also negative for acute cholecystitis/ biliary obstruction. Patient continued to spike fevers, sputum grew citrobacter koseri and ID was consulted. ID suspect fevers 2/2 hypersensitivity reaction likely to beta lactams. Abx discontinued andpatient remained afebrile thereafter. Patient weaned off pressors and currently on minimal sedation. Tolerating trach trials throughout the day/night and saturating well. Family care conference held, plans to d/c home with 24/7 care from family members vs lyudmila placement. Patient then tolerated downsizing of trach to 6-0 shiley. Per Speech patient to remain NPO, continue feeds to DHT, and continue SITE PROJECT MANAGER therapy. Patient stable for TTF. CURRENT MEDICATIONS - reviewed. Current Facility-Administered Medications Medication Dose Route Frequency Last Rate Last Dose LORazepam (ATIVAN) 2 mg/mL concentrated solution 0.25 mg 0.25 mg Enteral Q6HPRN melatonin (MELATIN) tablet 9 mg 9 mg Oral QHS [START ON 10/24/2019] paroxetine (PAXIL) 10 mg/5 mL suspension 20 mg 20 mg Enteral DAILY acetylcysteine (MUCOMYST) 200 mg/mL (20 %) solution 800 mg 4 mL Endotracheal Tube TID 800 mg at 10/23/19 1201 sodium chloride 7% (HYPER-OREN) nebulizer solution 4 mL 4 mL Inhalation Q6H 4 mL at 10/23/192025 zinc oxide 20 % ointment Topical PRN traMADol (ULTRAM) tablet 50 mg 50 mg Oral Q8HPRN 50 mg at 10/23/19 1226 famotidine (PEPCID) 40 mg/5 mL (8 mg/mL) suspension 40 mg 40 mg Enteral Q24H 40 mg at 10/23/19 0729 acetaminophen (TYLENOL) 160 mg/5 mL liquid 650 mg 650 mg Enteral Q6HPRN 650 mg at 10/23/19 0201 bumetanide (BUMEX) injection 2 mg 2 mg Slow IV Push Q12H 2 mg at 10/23/19 0729 enoxaparin (LOVENOX) injection 40 mg 40 mg Subcutaneous Q24H 40 mg at 10/23/19 0729 Polyethylene Glycol 3350 (MIRALAX) powder 17 g 17 g Enteral BID Stopped at 10/21/19 0800 sennosides-docusate sodium (SENOKOT S) 8.6-50 mg per tablet 1 tablet 1 tablet Enteral BID Stopped at 10/21/19 0800 ipratropium-albuterol (DUONEB) 0.5 mg-3 mg(2.5 mg base)/3 mL nebulizer solution 3 mL 3 mL Inhalation Q6H 3 mL at 10/23/192015 aspirin chewable tablet 81 mg 81 mg Oral DAILY 81 mg at 10/23/19 0729 dextrose 10% (D10W) bolus infusion 100 mL 100 mL IV Infusion PRN - SEE INSTRUCTIONS 100 mL at09/21/19 1100 glucagon (GLUCAGEN DIAGNOSTIC KIT) injection 1 mg 1 mg Intramuscular PRN Sliding Scale Insulin - Aspart (NOVOLOG) + Fsbg Testing Subcutaneous Q6H Stopped at Jazmin Mir, OCCUP THER - 10/23/2019 5:04 PM CDT Physical Therapy Progress Note: Discharge Recommendations: Therapy Needs and Potential: Patient would benefit from continued physical therapy services to address: decline in bed mobility decline in transfers decline in gait and/or balance decreased strength decreased range of motion decreased endurance Challenges to Home Transition: increased risk of falls decreased caregiver availability decreased safety awareness Equipment recommendations: wheelchair, hospital bed and mechanical lift PAIN: denies pain PRECAUTIONS: Weight Bearing Precaution: WBAT General Precautions: PPE used:Gloves and Surgical mask, General, Fall, NG tube, oxygen: Trach collar Bracing/Cast present or required:N/A S: Patient agreeable to working with PT. Patient voicing frustration over being "so tired" after EOB activity. O: Patient met Semi reclined in bed. Patient seen in conjunction with Halima Kim OT due to medical complexity. Patient seen for the following: Patient's Vitals during session as follows: Semi reclined prior to session: BP: 139/91 mmHg (105), HR: 98 bpm, O2: 92% Sitting EOB: BP: 136/92 mmHg (104), HR: 105 bpm, O2: 93% Sitting EOB after 18 minutes: 135/94 mmHg (103), HR: 120 bpm, O2: 89% Semi reclined after 26 minutes at EOB: 129/70 mmHg (90), HR: 111 bpm, O2: 90% Bed mobility: Rolling: L <-> R with Maximal Assist towards each side Reclined to sitting: Maximal Assist X 2 for trunk and BLE management Scooting to edge of bed: Maximal Assist X 2 via draw sheet Sit to supine: Maximal Assist X 3 persons for trunk and BLE management for safety Repositioned patient to head of bed: Dependent assessed patient for dizziness, patient denies incorporated lateral trunk leans towards both L and R side with increased assistance required forreturning to midline when leaning towards L side vs R introduced bariatric step stool for BLE positioning as well as to promote increased anterior trunk lean as patient presents with increased tendency for posterior and R lateral trunk lean Cued patient on obtaining and maintaining midline throughout task Patient able to tolerate sitting EOB X 26 minutes with fluctuating assistance levels from Moderate Assist <-> SBA Analyzed patient's sitting balance to also fluctuate from fair- <-> fair+ with decreased posture noted as fatigue increases Therapeutic exercise: patient educated in Compensatory techniques/adaptive strategies, Deep breathing, Energy conservation, Fall prevention, General strengthening, Joint protection, Positioning, Relaxation/breathing techniques and Safety awareness., instructed patient in the following: ankle pumps, glut sets, long arc quads, seated marching, patient/caregiver instructed to perform HEP 4 times per day, 10 repetitions., patient/caregiver demonstrates understanding of instructions. implemented AAROM for LLE during L hip flexion After session, patient supine with bed transitioned into semi chair position and call fields provided. A: Patient tolerated session fairly well . Patient progressing toward goals #1, #2. P: PT will - progress functional mobility per POC. Total Timed Tx Codes in Minutes: 54 Min Total Treatment Time in Minutes: 54 Min Jazmin Mir PTA Pager # [phone] Supervising PT Beatrice Bansal Kira June, SITE PROJECT MANAGER - 10/23/2019 4:44 PM [facility] Daily Progress Note - 10/23/2019 [id number] Vinnie Aguilera : 1975 Age: [age] year old Sex: female SUBJECTIVE: Patient alert/awake upon arrival, agreeable to working with SITE PROJECT MANAGER. She reports feeling anxious about her situation but wants to try and improve. OBJECTIVE: Vinnie Aguilera was seen for 1 SITE PROJECT MANAGER treatment session/s on this date. Treatment was provided due to dysphagia and dysphonia. Patientis a 43 year old female admittedfor management of acute on chronic hypercapnic and hypoxic respiratory failure. PMH significant forOSA, severe pHTN, PFTs w/ restrictive pattern (2013), chronic hypoxic RD (on 3-4L O2 intermittently), Pickwickian syndrome, HTN, CHFpEF, chronic Fe deficiency anemia, menorrhagia, tobacco abuse disorder, THC use disorder, and morbid obesity. Patient urgently intubated on 09/21/19 and unable to wean from vent despite aggressive diuresis and completion of antibiotics. ENT placed 8-0 XL Shiley on 10/04/19.Downsized to a 6-0 cufflessShiley on 10/22/19. FEES (10/22/19) Impressions: severe pharyngeal dysphagia; intermittently silent aspiration of secretions, ice chips, and nectar thick liquids (PAS 7-8); deep penetration (PAS 5) and possible aspiration of puree (PAS 5, ?7-8); mild- moderate diffuse pharyngeal residue; suspected reflux Progress on short term goals was as follows: Swallowing: - Patient will verbalize importance of and demonstrate compliance to strict oral hygiene care with minimal cues: Discussed importance of stringent oral hygiene care in the prevention of incurring aspiration-related infection. Reviewed FEES revealed aspiration of secretions. SITE PROJECT MANAGER provided oral hygiene care and provided instructions for patient to follow when completing independently. (progressing, continue goal) - Patient will complete base of tongue, strap muscle, and airway protection exercises with minimal cues 80% of the time: Introduced Kelly, effortful swallow, supraglottic, and Jose Alberto exercises to patient this date and handout provided. SITE PROJECT MANAGER description and model for each exercise. Pt observed to read over each exercise and able to complete x10 of each with min verbal cues (i.e. guided feedback to improve accuracy). She required additional visual and tactile cues during the Jose Alberto to achieve accurate hand placement. SITE PROJECT MANAGER encouraged patient to complete 5-10 reps of these exercises 3/day. Patient verbalized understanding of information. (progressing, continue goal) - Patient will tolerate therapeutic po trials of ice chips using swallow precautions with SITE PROJECT MANAGER in therapy only without negative effects on medical condition. After oral hygiene care and with speaking valve donned, patient presented with a total of 8 ice chips to consume in conjunction with dysphagia exercises. Patient's vocal quality noted to be wet at baseline and remained wet across trials. She also was observed with intermittent coughing. (continue goal) Voice: - Patient will tolerate speaking valve placement and achieve functional voicing without significant change in baseline monitors for 30+ minutes. Patient/RN reports she has been wearing the speaking valve as needed to communicate with family/staff. SITE PROJECT MANAGER provided 3 rounds of tracheal suctioning with return of copious secretions. PMV placed. Patient tolerated speaking valve for ~10 minutes before coughing off PMV. Speaking valve replaced which shetolerated for an additional 20 minutes. Patient without significant changes in baseline monitors or complaints or s/sx of distress, discomfort, or dyspnea while wearing PMV. She was able to achieve clearer and stronger phonation with speaking valve, though her vocal quality was noted to be mildly hoarse/breathy and intermittently wet. (progressing, continue goal) - Patient will independently place and remove speaking valve. Patient declined d/t feeling upper extremity weakness after working with PT. (continue goal) - Patient will independently state 3 safety precautions for use of the speaking valve. Patient recalled that speaking valve is not to be worn when asleep. Reviewed other precautions including removing at any sign of respiratory distress, suctioning before PMV placement, cleaning 3x/day, and how to place/remove valve. Patient verbalized understanding and able to teach back 3/4 precautions. (progressing, continue goal) ASSESSMENT: Vinnie Aguilera continues to present with a severe pharyngeal dysphagia as a result of general deconditioning and compromised respiratory status s/p tracheostomy in the setting of prolonged hospitalization with impairments in both airway protection and pharyngeal efficiency. FEES on 10/21 showed aspiration of secretions, ice chips, and nectar thick liquids. Dysphagia therapy initiated this date and patient completed swallowing exercises with SITE PROJECT MANAGER. Education provided re: importance of oral hygiene and recommended exercise regimen. Patient remains at high risk for aspiration at this time. Recommendshe remain NPO with continued use of short-term DINA (DHT in place). Will plan to continue swallow therapy with consideration of appropriate timing for repeat instrumental assessment. During today's session, patient demonstrated toleration of speaking valve without significant changes in baseline monitors or complaints or s/sx of distress, discomfort, or dyspnea. However, patient will require at least intermittent supervision d/t her copious secretions which was discussed with RN. Plan to continue education re: speaking valve precautions and how to place/remove PMV in therapy. Will continue to follow while in-house. PLAN: 1. Recommend patient remain NPO and continue with alternative means of nutrition/hydration (DHT in place). 2. Recommend elevated head of bed and frequent, thorough oral hygiene care due to high risk for aspiration and likelihood that patient is aspirating her secretions. 3. Recommend patient wear speaking valvewith at least intermittent supervisionto achieve voicingwith the following precautions: - Suctioning must be completed prior to PMV placement - Remove at any sign of respiratory distress or discomfort - Do not wear when sleeping - Clean 2x/day with warm water and hand soap or more with increased secretions - Secure trach baseplate with one hand while donning/doffing the speaking valve with the other hand 4. Recommend SITE PROJECT MANAGER therapy 2-5x/wk for 15-45 min/session while in-house to address the above goals. 5. Patient will eventually benefit from a repeat instrumental swallow study as clinically indicated. Kira June M.S. [facility]-SITE PROJECT MANAGER Speech-Language Pathologist Office: [phone] Pager: [phone]' Reshma Banda MD - 10/23/2019 2:03 PM CDT Brief MICU Note Date: 10/23/2019 14:04 ICU day: 32 Intubation Day: s/p trach 10/04/19 Code Status: Full HOSPITAL COURSE: Vinnie Aguilera is a 43 year old morbidly obese female withOSA (noncompliant with BiPAP), severe pHTN,PFTs w/restrictive pattern (2013),chronic hypoxic respiratory failure (on home 3-4L O2 in termittently),Pickwickian syndrome, HTN, CHFpEF (TTE 09/23/19), chronic DUKE, menorrhagia, and tobacco/THC use disorderwho presented with acute on chronic hypercapnic and hypoxic RF. ABGs were significant for increasing acidosis which improved once intubated in the MICU. DVT ruled out on doppler andpatient had intermediate wells score, thus CT PE not obtained. Patient was diuresed aggressively in the setting of acute on chronic HFpEF. Fevers developed 36-48 hours after intubation and patient was initially started on vanc + merrem for aspiration PNA, which was then de-escalated to Unasyn. Infectious workup negative and procal WNL. CBT trial failed twice. As patient could not be weaned off vent despite aggressive diuresis and completion of abx, tracheostomy tube was placed by ENT on 10/04/19. Fevers persisted, so GI was consulted as RUQ US demonstrated possible dilation of CBD. GI suggested fever less likely related to biliary source given normal LFTs. HIDA also negative for acute cholecystitis/ biliary obstruction. Patient continued to spike fevers, sputum grew citrobacter koseri and ID was consulted. ID suspect fevers 2/2 hypersensitivity reaction likely to beta lactams. Abx discontinued andpatient remained afebrile thereafter. Patient weaned off pressors and currently on minimal sedation. Tolerating trach trials throughout the day/night and saturating well. Family care conference held, plans to d/c home with 24/7 care from family members vs lyudmila placement. Patient then tolerated downsizing of trach to 6-0 shiley. Per Speech patient to remain NPO, continue feeds to DHT, and continue SITE PROJECT MANAGER therapy. Patient stable for TTF. Plan for next 12 hours (should include: anticipated events, complications to watch for, pending labs/radiology/consults): - increased paxil if needed - social work to find funding for patient to go to a facility or to go home with community support - remain NPO with NGT and continued SITE PROJECT MANAGER therapy - avoid QT prolonging agents - c/w Bumex Reshma Menjivar MD Internal Medicine, PGY1 Charlotte Burton, OT - 10/23/2019 1:30 PM CDTI was present and participated throughout the session and agree with the documentation as written bythe student therapist on the encounter dated 10/23/2019. Halima Kim,OTR [phone] OCCUPATIONAL THERAPY NOTE: Discharge Recommendations: Therapy Needs and Potential:- Patient would benefit from continued skilled occupational therapy services to address: Decline in basic activities of daily living, Decline in instrumental activities of daily living, Decreased strength, Decreased range of motion, Decreased endurance and Caregiver training - Patient demonstrates good potential to improve and meet therapy goals with further skilled occupational therapy services. - Patient appears motivated to improve their B/IADLs and return to their previous level of function. Challenges to Home Transition:- Requires physical assistance for BADLS - Requires physical assistance for IADLS - Increased risk of falls Equipment Recommendations:bariatric BSC, WC, Hospital bed, and Vanessa lift Precautions: Weight bearing status: WBAT SAAD LE General: PPE Utilized: Gloves and Surgical mask and Fall, aerosolTrach and morbid obesity Bracing: N/A S: Patient agreeable to participate in occupational therapy. Patient now with speaking valve which she tolerated during session. Patient wants to get stronger and walk. PAIN Pre-treatment: 0/10 pain Post-treatment: 0/10 pain. Repositioning Provided. O: Patient found semireclining in bed. Nursing present and Vital signs stable . Patient seen this date for the following: Seen patient in conjunction with PT; refer to Jazmin Mir PT note for vitals and further details on mobility ADL Training/Neuromuscular Re-education/Therapeutic Exercise Grooming: SBA/Setup. Patient performed face washing while semi-reclining in bed. Patient able to use suction for trach with HOB elevated. ADL mobility Supine > Sit: Max A x2 with draw sheet; Scoot to EOB: Max A x2 with draw sheet; Sat EOB for 26minutes with SBA; EOB to Supine: Max A x 2 with draw sheet; Dependent transfer to HOB x 2 Patient while seated EOB for 26 minutes performed AROM and strengthening exercises. Performed 5 reps bilaterally shoulder horizontal abduction; required proximal stability on L UE to reach actively Patient performed Weightbearing on bilateral forearms to increase postural control. Patient left in semichair position in bed with call fields in reach. Vital signs stable and Nursing notified on positioning. . A: Patient exhibited Good participation in therapy and responded well to treatment this session. Patient is progressing toward goal(s) 6 and 7. Poor endurance, Persistent weakness and decreased strength and ROM remain(s) a limiting factor. Patient continues to present with Decreased independence with ADL, Impaired postural control, Decreased functional ROM and Decreased strength/endurance for functional activity and will benefit from continued OT services to address above areas and improve functional status. P: Functional motor treatment, Patient/Caregivier Education, Equipment recommendations, Daily livingactivities, Therapeutic exercises and Neuromuscular Re-Education Patient being moved to another floor; attempt OOB in bedside chair activity with her if stable. CHET Hernandez Total Timed Treatment Codes: 53 Min Total Treatment Time: 53 Min EDUARDOTWPamela pantoja LBSW - 10/23/2019 1:01 PM CDTCare Management Handoff Note 5-2-1 Interventions: Disease specific education;Intensive medication reconciliation/management;Teachback;Clear discharge plan;Home visit/home health referral 5-2-1 Providers: Physician;Manager Logistic/Sheet Metal Apprentice;Nurse 5-2-1 Patient Capacity Improvements: Avoidance of adverse events/readmission;Referral to Care Transition Team;Transportation arrangements Discharge Plan for ongoing care and services: Durable Medical Equipment;Home Health (HH) see auth cert notes for [facility] quotes Is this a new referral: Yes Patient Choice completed for referred services: ([facility]) DME referral sent to: Other DME location: Durable Medical Equipment: Bedside Commode;Gel Overlay;Hospital Bed;Vanessa Lift;Oxygen Concentrator;Portable Oxygen;Rolling Walker;[employer] Electric Hospital Bed;Sunction Machine;Trach Care Supplies;Vent;Wheelchair(see auth cert notes for DME lyud[facility]ila quotes) Will also need PAP for Jevity it patient is not cleared by ST. DME status: DME follow up needed: pending further PT/OT/ST eval Home Health referral sent to: (see auth cert for [facility]udmila quotes) Will need PT/OT/ST and nurse visit Planned Discharge location(s): Home Health location: (see auth cert for [facility] quotes) Patient choice completed for referred services: ([facility]udmila) Status of Referrals: N/A Psych placement? No Vendor/Facility liaison name and phone number: N/A MoT Status: N/A DC Packet on patient's chart? N/A Discussed with patient/patients family involved in decision making: Yes Nadiya [phone]. Email [email or web address] Patient or family caregiver understands, and agrees with discharge plan. Primary Family/Support Person Name and Phone Number: Nadiya [phone]. Email [email or web address] Community resources/referrals made or provided to patient: Yes Resources/Referrals: [facility] Resources Fact Sheets;CHP;[facility];Patient Assistance Program Patient Matters Has patient been referred to [facility] (Patient Matters)? Yes. Name and number of [facility] contact: Halima Cid Active APS/CPS case? No CHP referral sent? Yes. Name and phone number of P staff member notified of patient's needs: n/a Referral has been made, however no assignment at this time as patient has been critical care level of care. Transportation: Ambulance Transportation (person/company) Name and Phone Number: [facility] request completed for patient? No Does this patient need an OOHDNR for transport? No Mental Status: Alert & Oriented to Person,Place & Time Living Arrangement: Home Other living arrangement: Address of living arrangement: [address] [place] [address] [address] [address], [place] [address] Funding Resources: Self Pay Nursing informed of discharge plan: (tbd) Name of RN informed: Expected discharge date: 10/26/2019 Time: BPCI Patient? No Are there any (or potential) AHD (avoidable hospital days)? Yes. Are there pending procedures/scans that need to be monitored for possible AHDs? (no) Last date that a deep dive for AHDs was completed: 10/22/19 LOS note Has a PA referral been completed for this patient? yes - yes patient is unfunded and complicated medical course Additional Information: may also need Bipap lyudmila item CM/SW Name & Contact number: BUTCH Grace Ph. [phone] Maximino Hinton DO - 10/23/2019 6:21 AM CDT MICU Progress/Transfer Note Date of Service: 10/23/2019 06:34 Reason for ICU admission: Acute on Chronic Hypercapnic Hypoxic Respiratory Failure 2/2 Untreated ETIENNE/OHS and Acute on Chronic HFpEF ICU Day: 32 Intubation Day: s/p trach 10/04/19 Code Status: Full Last 24 hour events (major events): - Tolerating downsized trach without any issues - NAEO - Remains NPO Subjective: Patient states that she is ready to go home. Complains of dry mouth, but otherwise denies any needs at this time. Ventilator Bundle: Respiratory support: trach collar Sedation/Analgesia: Precedex Stress ulcer prophylaxis: H2 cynthia DVT prophylaxis: lovenox Nutrition: Enteral Rate: 10-60 ml/hr. Lines (with dates): L Arm PIV 10/15/19 L Arm PIV 10/23/19 Gleason: N/A Intake/Output: Intake/Output Summary (Last 24 hours) at 10/23/2019 0634 Last data filed at 10/23/2019 0100 Gross per 24 hour Intake 676 ml Output 3750 ml Net -3074 ml Physical Exam: Temp: [36.2 C (97.2 F)-36.8 C (98.2 F)] Heart Rate (monitor): [61-86] Pulse: [59-85] Resp: [10-24] BP: (105-146)/(69-131) MAP (mmHg): [82-137] Constitutional: No acute distress. Able to mouth words, nod to questions, write responses. HEENT: Trach and NGT in place with bridle Resp: Distant breath sounds. Good air movement. Cardio: RRR, No murmurs. GI: Morbidly obese. Non-distended. Soft. MSK: sacral sores as seen on media tab Ext: Difficult to quantify diffuse LE edema up to thighs b/l. Psych: anxious Labs (pertinent only)/Imaging: Reviewed Assessment/Plan: Vinnie Aguilera is a 43 year old female admitted with Acute on Chronic hypercapnic hypoxic respiratory failure 2/2 acute HFpEF exacerbation and untreated ETIENNE/OHS. Neuro Toxic Metabolic Encephalopathy 2/2 Profound Hypercapnia THC Use Disorder Anxiety Patient obtunded upon arrival to MICU 2/2 Mikey >160 and was intubated. Originally required increased sedation for agitation, now on minimal sedation. Her mentation has improved and she is now alert and responds by mouthing, writing, and use of letter board. - avoid sedating medications - avoid antipsychotics as patient does have prolonged QTc - c/w paxil 10mg, consider increasing as needed - PT/OT Resp Acute on Chronic Hypercapnic Hypoxic Respiratory Failure 2/2 Acute HFpEF Exacerbation and Untreated ETIENNE/OHS s/p tracheostomy (10/03) - on 3-4L O2 at home Severe Pulmonary HTN Pickwickian Syndrome Morbid Obesity PFTs w/ Restrictive Pattern, not COPD (2013) Tobacco Use Disorder Pt completed abx course for aspiration PNA. Was unable to be weaned off vent and had tracheostomy byENT on 10/04/19. Patient has been tolerating trach trials throughout the day with success. Family/Social work/manager supportbiofuels product manager 10/17/19 to discuss plans of care. Goal to find charitable funding and accepting facility or to stabilize patient enough to go home with community support. - c/w trach - ABG PRN - Suction Q4H and PRN - c/w Hypersal TID - c/w Duonebs Q6h - c/w mucomyst - Trach downsized to 6-0 uncuffed shiley - f/u speech recs: remain NPO with NGT, free H2O protocol PRN for QOL Cardiovascular Acute on Chronic Diastolic HF HTN HLD Prolonged QTc Difficult to quantify diffuse LE edema up to thighs b/l. TTE 09/23/19 EF 55-60%, RVSP significantly elevated and RV moderately dilated. Did not comment on diastolic function, study was technically difficult. MAPs >60 off pressors. Has net negative of 13L and lost ~50 lbs since admission. - c/w Bumex IV 2 mg Q12 H - Strict I/O - avoid QTc prolonging agents - c/w ASA daily GI Elevated AST Hepatic steatosis Constipation - resolved RUQ U/S demonstrating possible dilation of CBD. GI consulted; suggest fevers are less likely from biliary source given normal LFTs, limit PPI use as known association with drug fever, and HIDA scan negative for acute cholecystitis/biliary obstruction. - bowel regimen with miralax and senokot Renal Uncompensated Respiratory Acidosis - resolved JOSELUIS and Hypernatremia 2/2 Diuresis - resolved Hypokalemia - resolved - Monitor BMP qMWF - Replete electrolytes as needed - c/w Bumex as above ID Aspiration Pneumonia s/p Abx Initially on vanc/freida and later de-escalated to unasyn, completed course of abx on 10/01. CXR s/p trach with interval worsening of b/l opacities concerning for interstitial edema vs infection/aspiration. Sputum culture grew citrobacter koseri. ID consulted; suggest no active infection and fevers likely 2/2 drug reaction. Antibiotics d/c'd and patient remains afebrile. - Monitor fevers - If patient has significant fever (>103F), repeat blood cx x2, UA/Ucx, sputum cx Endo Morbid Obesity Hirsutism Stable. Latest Hgb A1c 5.3. - SSI Q6H Dispo: TBD Prognosis: Guarded Maximino Lucas DO PGY2 - Internal Medicine Doctor's #: [id number] Pager: [phone] HOSPITAL COURSE: Vinnie Aguilera is a 43 year old morbidly obese female withOSA (noncompliant with BiPAP), severe pHTN,PFTs w/restrictive pattern (2013),chronic hypoxic RF (on 3-4L O2 intermittently),Pickwickian syndrome, HTN, CHFpEF (TTE 09/23/19), chronicFe deficiency anemia, menorrhagia, and tobacco/THC use disorderwho presented with acute on chronic hypercapnic and hypoxic RF. ABGs were significant for increasing acidosis which improved once intubated in the MICU. DVT ruled out on doppler and patient had intermediate wells score, thus CT PE not obtained. Patient was diuresed aggressively in the s etting of acute on chronic HFpEF. Fevers developed 36-48 hours after intubation and patient was initially started on vanc + merrem for aspiration PNA, which was then de-escalated to Unasyn. Infectious workup negative and procal WNL. CBT trial failed twice. As patient could not be weaned off vent despite aggressive diuresis and completion of abx, tracheostomy tube was placed by ENT on 10/04/19. Fevers persisted, so GI was consulted as RUQ US demonstrated possible dilation of CBD. GI suggested fever less likely related to biliary source given normal LFTs. HIDA also negative for acute cholecystitis/biliary obstruction. Patient continued to spike fevers, sputum grew citrobacter koseri and ID was consulted. ID suspect fevers 2/2 hypersensitivity reaction likely to beta lactams. Abx discontinued and patient remained afebrile thereafter. Patient weaned off pressors and currently on minimal sedation. Tolerating trach trials throughout the day/night and saturating well. Family care conference held, plansto d/c home with 24/7 care from family members vs lyudmila placement. Patient then tolerated downsizing of trach to 6-0 shiley. Per Speech patient to remain NPO and continue with DHT in place. Patient stable for TTF. Associated attestation - Jeovany Franco Jr., MD - 10/23/2019 1:40 PM CDTI personally examined the patient on 10/[address] Lucas's resident note as written . I actively participated in the decision-making process. Please see the resident's note for additional details. Nicolas Song MD - 10/22/2019 6:52 PM CDTBrief MICU Note Date: 10/22/2019 18:53 ICU day: 28 Intubation Day: Tracheostomy on 10/03. Intubated 09/20. Code Status: Full code 12 Hour Events (should include: major events throughout the day, patient status, significant labs, radiology, consult updates): - Downsized to 6-0 uncuffed by ENT today. - FEES done, not cleared for PO intake - keep NPO. - Speech reccs: patient can wear speaking valve with intermittent supervision. - Feeds re-started. Plan for next 12 hours (should include: anticipated events, complications to watch for, pending labs/radiology/consults): - Continue monitoring respiratory status on new tube. If does well, then possible transfer to floor tomorrow. - Maintain net neutral fluids or slightly negative. - Continue working with speech. Nicolas Song MD Kira Jaimes, ERIKA - 10/22/2019 4:23 PM CDTSPEECH LANGUAGE PATHOLOGY Daily Progress Note - 10/22/2019 [id number] Vinnie Aguilera : 1975 Age: [age] year old Sex: female SUBJECTIVE: Patient awake/alert upon arrival and agreeable to speaking valve trials. RN/RT report patient still with copious secretions since trach downsize. OBJECTIVE: Vinnie Aguilera was seen for 1 SITE PROJECT MANAGER treatment session/s on this date. Treatment was provided due to dysphonia. Patient is a 43 year old female admittedfor management of acute on chronic hypercapnic and hypoxic respiratory failure. PMH significant forOSA, severe pHTN, PFTs w/ restrictive pattern (2013), chronic hypoxic RD (on 3-4L O2 intermittently), Pickwickian syndrome, HTN, CHFpEF, chronicFe deficiency anemia, menorrhagia, tobacco abuse disorder, THC use disorder, and morbid obesity. Patient urgently intubated on 09/21/19 and unable to wean from vent despite aggressive diuresis and completion of antibiotics. ENT placed 8-0 XL Shiley on 10/04/19.Downsized to a 6-0 cuffless Shiley on 10/22/19. Tracheostomy: Make: Shiley Size: 6-0 Cuff: cuffless trach Date Placed: initial 10/04/19; downsized 10/22/19 Service: ENT Secretions: Is patient able to manage oral secretions? No Amount of tracheal secretions: Copius Ventilator/Trach Collar Status: Date vent initiated: 09/21/19 Date D/C: Initiated trach collar trials on 10/11; tolerating trach collar during the day time Vent Setting: ATC FiO2: 30%; 10 L/min Progress on short term goals was as follows: Voice: - Patient will achieve functional voicing via finger occlusion 80% of the time with min cues: Patient able to achieve functional voicing on 5/5 finger occlusion trials. Vocal quality noted to bemildly hoarse/breathy. Passy-Ev Speaking Valve Evaluation Test for Cuff Deflation: N/A - cuffless trach Test for Upper Airway Patency: passed Vocal Quality: mildly breathy/hoarse with PMV Oxygen Saturation: Baseline 93, At 1 min 92, At 10 min 91, At 20 min 90 Pulse: Baseline 66, At 1 min 71, At 10 min 70, At 20 min 72 Respiratory Rate: Baseline 19, At 1 min 19, At 10 min 17, At 20 min 19 Subjective Impressions: Pt tolerated placement well with no changes or baseline monitors or complaints or s/sx of distress, discomfort, or dyspnea. Patient able to achieve stronger and clearer phonation with speaking valve, though vocal quality noted to be mildly breathy/hoarse. ASSESSMENT: Vinnie Aguilera demonstrated progress on the above goals. She continues to present with dysphonia s/p recent tracheostomy placement d/t continued need for vent. However, patient tolerated speakingvalve placement well today without significant changes in baseline monitors, complaints or s/sx of distress, discomfort, or dyspnea. Patient achieved stronger and more clear phonation with PMV in placeand demonstrated ability to don/doff with min assist. Recommend patient wear speaking valve with at least intermittent supervision d/t her copious secretions requiring frequent suctioning. Pt would benefit from continued SITE PROJECT MANAGER services while in-house for ongoing dysphonia management. PLAN: 1. Recommend patient remain NPO pending completion of FEES. 2. Recommend patient wear speaking valve with at least intermittent supervision to achieve voicing with the following precautions: - Suctioning must be completed prior to PMV placement - Remove at any sign of respiratory distress or discomfort - Do not wear when sleeping - Clean 2x/day with warm water and hand soap or more with increased secretions - Secure trach baseplate with one hand while donning/doffing the speaking valve with the other hand 3. Recommend elevated head of bed and frequent, thorough oral hygiene care due to high risk for aspiration. 4. Recommend speech therapy 2-5x/week for 15-45 minutes/session while in-house to address the following goals: - Patient will tolerate speaking valve placement and achieve functional voicing without significant change in baseline monitors for 30+ minutes. - Patient will independently place and remove speaking valve. - Patient will independently state 3 safety precautions for use of the speaking valve. Kira June M.S. [facility]-SITE PROJECT MANAGER Speech-Language Pathologist Office: [phone] Pager: [phone] Laith Delgado MD - 10/22/2019 10:37 AM CDTENT Short Note Patient has been on trach collar for 72hours and MICU team requesting change and downsize to 6-0. Patient was layed flat and neck extended. 8-0 PXLT cuffed removed. 6-0 PXLT cuffless placed easily intotracheastoma. Stay suture removed. Patient tolerated procedure well. - continue daily change of inner cannula - suctioning PRN, more is better - SITE PROJECT MANAGER eval for initation of diet - have extra 6-0 cuffed and cuffless proximal XLT trachs at bedside - patient will need to go home with trach supplies and suction machine - FOLLOW-UP with Dr. Samuel 2-3 weeks after discharge Laith Delgado MD Otolaryngology--Head and Neck Surgery Associated attestation - Main Samuel MD - 11/05/2019 2:48 PM CDTI actively participated in the decision making process. I have reviewed the above note and have made changes where applicable. Main Samuel MD Otolaryngology Charlotte Kim, OT - 10/22/2019 10:30 AM CDTOCCUPATIONAL THERAPY NOTE: Discharge Recommendations: Therapy Needs and Potential:- Patient would benefit from continued skilled occupational therapy services to address: Decline in basic activities of daily living, Decline in instrumental activities of daily living, Decreased strength and Decreased endurance - Patient demonstrates good potential to improve and meet therapy goals with further skilled occupational therapy services. - Patient appears motivated to improve their B/IADLs and return to their previous level of function. - Patient exhibits limited activity tolerance. - Patient able to follow commands: 1-step Yes, Multi-step Yes, Inconsistencies No Challenges to Home Transition:- Requires physical assistance for BADLS - Requires physical assistance for IADLS - No caregiver support - Limited caregiver availability - Increased risk of falls Equipment Recommendations: bariatric BSC, WC, Hospital bed, and Vanessa lift Precautions: Weight bearing status: WBAT SAAD LE, SAAD UE General: PPE Utilized: Gloves and Surgical mask, Fall, aerosolTrach and morbid obesity Bracing: N/A S: Patient agreeable to participate in occupational therapy. Patient frustrated and wants to be ableto walk. Education provided on LB strengthening required to walk and patient encouraged to perform bed level exercises as instructed by PT. PAIN Pre-treatment: 0/10 pain . Post-treatment: 0/10 pain at NA. Repositioning Provided. O: Patient found semireclining in bed. Vital signs stable . Patient seen this date for the following: ADL Training Grooming: Patient washed her face and wiped her nose with set up. Therapeutic Exercise/Procedure Educated Patient about Towel/dowel for SAAD UE: as tolerated. Patient/caregiver instructed to perform HEP 1-3 times per day, 10 repetitions. Neuromuscular Re-Education bed positioned in chair position for exercise. Vitals remained stable Patient left in semichair position in bed with call fields in reach. Vital signs stable . A: Patient exhibited Good participation in therapy and responded well to treatment this session. Patient is progressing toward goal(s) 6 and 7. Poor endurance and Persistent weakness remain(s) a limiting factor. Patient continues to present with Decreased independence with ADL, Impaired postural control, Decreased functional ROM and Decreased strength/endurance for functional activity and will benefit from continued OT services to address above areas and improve functional status. P: Functional motor treatment, Patient/Caregivier Education, Equipment recommendations, Daily livingactivities and Therapeutic exercises DElise Kim,OTR [phone] Total Timed Treatment Codes: 19 Min Total Treatment Time: 19 Min rCistobal Smith RN - 10/22/2019 10:13 AM CDTCare Management Note 10/22/19 10:13 AM Patient requested Cousin Nadiya [phone] become her contact and mouths to me that she does not havea spouse as well as doesn't want Ac to be her emergency contact, changed in demographics. 1:07 PM Followed up with patient regarding Ac no longer being primary contact. for over a yearper Nadiya. Per patient, Ac is not her spouse and does not live with the patient. Not recently Ac and the patient were split up before this admission happened. Patient will not be relying on Ac for care. Was informed to use Nadiya as a primary contact and has a brother who could stay with her except the times he goes to dialysis. I as if this person would be able to clean her or help her move which she had stated no. Called Nadiya [phone]. Email [email or web address] She states Brother Donovan Aguilera [phone] is weak somedays. F dialysis patient Cousin Jean and his have a phone that has been off for a while. Mother also lives there and everyone has been taking care of her for years. The concern will be how functional the patient will be to determine DME needs as the family does not have disposable income at this time. The family has extensive experience caring for their bed bound mother. CHEVY Astorga, RN Revenue Accountant [email or web address] O:[phone] F:[phone] ristobal Quintanilla RN - 10/22/2019 10:06 AM CDTCare Management Continued Stay Assessment LOS Day: Estimated /Planned Discharge Date: reeval 10/29/19 MICU female 43 year old Date CM/SW last Face to Face completed with patient/family: 10/22/19 Funding source: Payor: MEDICAID PENDING / Plan: MEDICAID PENDING / Product Type: Pending / Insurance DC planner internship: patient PCP:[facility] Patient/Family/MPOA/Caregiver Engaged with Transitional Care Plan: yes Patient/Family/MPOA/Caregiver concurs with proposed discharge plan: yes Name, Relationship to Patient and contact number of individual acting on behalf of the patient: patient Cousin NADIYA AGUILERA [phone] Chief Complaint/Admitting Dx:RESP FAILURE Hospital Problems: Acute on chronic respiratory failure with hypercapnia Hypercapnic respiratory failure Cholecystitis Summary of hospital course: Vinnie Aguilera is a 43 year old morbidly obese female withOSA (noncompliant with BiPAP), severe pHTN,PFTs w/restrictive pattern (2013),chronic hypoxic RF (on 3-4L O2 intermittently),Pickwickian syndrome, HTN, CHFpEF (TTE 09/23/19), chronicFe deficiency anemia, menorrhagia, and tobacco/THC use disorderwho presented with acute on chronic hypercapnic and hypoxic RF. ABGs were significant for increasing acidosis which improved once intubated in the MICU. DVT ruled out on doppler and patient had intermediate wells score, thus CT PE not obtained. Patient was diuresed aggressively in the s etting of acute on chronic HFpEF. Fevers developed 36-48 hours after intubation and patient was initially started on vanc + merrem for aspiration PNA, which was then de-escalated to Unasyn. Infectious workup negative and procal WNL. CBT trial failed twice. As patient could not be weaned off vent despite aggressive diuresis and completion of abx, tracheostomy tube was placed by ENT on 10/04/19. Fevers persisted, so GI was consulted as RUQ US demonstrated possible dilation of CBD. GI suggested fever less likely related to biliary source given normal LFTs. HIDA also negative for acute cholecystitis/biliary obstruction. Patient continued to spike fevers, sputum grew citrobacter koseri and ID was consulted. ID suspect fevers 2/2 hypersensitivity reaction likely to beta lactams. Abx discontinued and patient remained afebrile thereafter. Patient weaned off pressors and currently on minimal sedation. Tolerating trach trials throughout the day/night and saturating well. Family care conference held, plansto d/c home with 24/7 care from family members vs lyudmila placement. Pending downsizing of trach with ENT and swallow study per speech path. Last 24 hour events (major events): - Tolerating trach trials throughout the day/night and saturating well - Stable overnight; no agitation - Worked well with PT - ENT recs against smaller cuffed; plans for uncuffed 6-0 shiley exchange CM/SW Interventions/Resources provided: SFA, Initial DC planning. Per spouse She reported patient resides in the home with spouse, cousin,mother and brother. 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 Pt received a paycheck in the month of September. Pt uses o2 concentrator with baseline of 3-4 liters. Prior to admission patient was independent. Pt does not have a PCP and uses local ER for medical care. Per spouse, patient only takes a diuretic which is affordable. Spouse requested SW to call back a later time as she was heading into work.Referred to [facility] and Patient matters.[facility] resources were provided and rx coupon card. 09/26 - spouse, cA Garcia at [phone] confirms patient will have 24/7 when ready to discharge home 10/02 - discussed home discharge until SSDI/LTC/Medicaid funding could get approved, discussed followup with Patient matters to get funding application started 10/07 - Patient Matters pending weaning vent for patient to be able to sign for SSDI application(to see if patient would be eligible) as well as [facility] Indigent Application 10/13 - confirmed previous home oxygen set up was a purchase from [facility], SW spoke with PM following up unfunded assistance 10/16 - family meeting with CM/SW, patient, spouse, and md in patient room, agreed to plan of recoveryas much as possible to go home with family support, may need lyudmila for DME/HH pending amount of recovery 10/21 - patient request Cousin Nadiya become her contact and mouths to me that she does not have a spouse as well as doesn't want Ac to be her emergency contact, changed in demographcs ISABEL/LOUISE Interventions/Resources still needed: DME/HH quotes in incomplete documentation pending progression of recovery for home set up, possible PAP for feeds if long tern nutrition is required Anticipated Discharge Destination: Home If DC to home, who will support patient: lots of family and friends according to patient and will have plenty of support Anticipated DME needs: Pending progression of recovery Referrals sent: yes If no, why/when will referral be sent:: Has patient been accepted: no Revised plan if not accepted: pending progression of recovery What is the clinical care happening right now that must be done in the hospital and only the hospital: - Suction Q4H and PRN - c/w Hypersal TID - c/w Duonebs Q6h - c/w mucomyst - plans to downsize trach to 6-0 uncuffed shiley - f/u speech recs: remain NPO with NGT pending completion of FEES when trach downsized, free H2O protocol PRN for QOL - c/w Bumex IV 2 mg Q12 H PT/OT to rehabilitate patient to baseline as much as possible CHEVY Astorga, RN Revenue Accountant [email or web address] O:[phone] F:[phone] Fany Toussaint MD - 10/22/2019 2:14 AM CDT MICU Progress Note Date of Service: 10/22/2019 03:53 Reason for ICU admission: Acute on Chronic Hypercapnic Hypoxic Respiratory Failure 2/2 Untreated ETIENNE/OHS and Acute on Chronic HFpEF ICU Day: 31 Intubation Day: s/p trach 10/04/19 Code Status: Full Last 24 hour events (major events): - Tolerating trach trials throughout the day/night and saturating well - Stable overnight; no agitation - Worked well with PT - ENT recs against smaller cuffed; plans for uncuffed 6-0 shiley exchange Subjective: Asking when she can go home and when she'll be able to talk. Denies any pain. Ventilator Bundle: Respiratory support: trach collar Sedation/Analgesia: Precedex Stress ulcer prophylaxis: H2 cynthia DVT prophylaxis: lovenox Nutrition: Enteral Rate: 10-60 ml/hr. Lines (with dates): L arm PIV 10/15/19 Gleason: N/A Intake/Output: Intake/Output Summary (Last 24 hours) at 10/22/2019 0353 Last data filed at 10/22/2019 0155 Gross per 24 hour Intake 4254 ml Output 3500 ml Net 754 ml Physical Exam: Temp: [35.7 C (96.3 F)-36.9 C (98.5 F)] Heart Rate (monitor): [53-68] Pulse: [54-68] Resp: [8-26] BP: (91-145)/(57-100) MAP (mmHg): [68-115] Constitutional: No acute distress. Able to mouth words, nod to questions, write responses. HEENT: Trach and NGT in place with bridle Resp: Distant breath sounds. Good air movement. Cardio: RRR, No murmurs. GI: Morbidly obese. Non-distended. Soft. MSK: sacral sores as seen on media tab Ext: Difficult to quantify diffuse LE edema up to thighs b/l. Psych: anxious Labs (pertinent only)/Imaging: Recent Labs 10/12/19 0508 10/13/19 0211 10/14/19 0539 10/18/19 0537 10/20/19 0608 WBC 5.15 5.32 5.85 5.49 5.52 HGB 7.3* 7.6* 7.9* 8.1* 8.6* HCT 29.4* 30.5* 31.3* 31.7* 32.5* MCV 85.5 85.2 86.7 90.8 87.4 PLT 319 317 322 248 238 Recent Labs 10/13/19 0211 10/14/19 0539 10/15/19 0526 10/18/19 0800 10/21/19 0530 NA 145 146* 144 144 138 K 3.6 3.9 3.7 3.2* 4.3 CA 9.1 9.1 8.9 6.8* 8.9 CL 109* 109* 105 112* 100 BUN 24* 23 22 21 19 CREAT 0.61 0.72 0.63 0.33* 0.45* GLU 135* 135* 160* 115* 135* TCO2 31 34* 32* 31 36* Recent Labs 09/30/19 0317 10/06/19 0349 10/08/19 0507 10/09/19 0400 10/10/19 0223 ALB 3.1* 3.0* 3.0* 3.0* 2.8* TPRO 7.5 7.2 7.5 7.5 7.2 BILIT 1.0 0.8 0.8 0.8 0.9 BILIUNCON 0.6 0.2 0.2 0.4 0.2 BILICONJ 0.0 0.0 0.0 0.0 0.0 ALT 11 12 14 16 14 AST 51* 72* 59* 49* 43* ALKPHOS 46 51 49 53 51 Assessment/Plan: Vinnie Aguilera is a 43 year old female admitted with Acute on Chronic hypercapnic hypoxic respiratory failure 2/2 acute HFpEF exacerbation and untreated ETIENNE/OHS. Neuro Toxic Metabolic Encephalopathy 2/2 Profound Hypercapnia THC Use Disorder Anxiety Patient obtunded upon arrival to MICU 2/2 Mikey >160 and was intubated. Originally required increased sedation for agitation, now on minimal sedation. Her mentation has improved and she is now alert and responds by mouthing, writing, and use of letter board. - avoid sedating medications - avoid antipsychotics as patient does have prolonged QTc - c/w paxil 10mg, consider increasing as needed - PT/OT Resp Acute on Chronic Hypercapnic Hypoxic Respiratory Failure 2/2 Acute HFpEF Exacerbation and Untreated ETIENNE/OHS s/p tracheostomy (10/03) - on 3-4L O2 at home Severe Pulmonary HTN Pickwickian Syndrome Morbid Obesity PFTs w/ Restrictive Pattern, not COPD (2013) Tobacco Use Disorder Pt completed abx course for aspiration PNA. Was unable to be weaned off vent and had tracheostomy byENT on 10/04/19. Patient has been tolerating trach trials throughout the day with success. Family/Social work/manager supportbiofuels product manager 10/17/19 to discuss plans of care. Goal to find charitable funding and accepting facility or to stabilize patient enough to go home with community support. - c/w trach - ABG PRN - Suction Q4H and PRN - c/w Hypersal TID - c/w Duonebs Q6h - c/w mucomyst - plans to downsize trach to 6-0 uncuffed shiley - f/u speech recs: remain NPO with NGT pending completion of FEES when trach downsized, free H2O protocol PRN for QOL Cardiovascular Acute on Chronic Diastolic HF HTN HLD Prolonged QTc Difficult to quantify diffuse LE edema up to thighs b/l. TTE 09/23/19 EF 55-60%, RVSP significantly elevated and RV moderately dilated. Did not comment on diastolic function, study was technically difficult. MAPs >60 off pressors. Has net negative of 13L and lost ~50 lbs since admission. - c/w Bumex IV 2 mg Q12 H - Strict I/O - avoid QTc prolonging agents - c/w ASA daily GI Elevated AST Hepatic steatosis Constipation - resolved RUQ U/S demonstrating possible dilation of CBD. GI consulted; suggest fevers are less likely from biliary source given normal LFTs, limit PPI use as known association with drug fever, and HIDA scan negative for acute cholecystitis/biliary obstruction. - bowel regimen with miralax and senokot Renal Uncompensated Respiratory Acidosis - resolved JOSELUIS and Hypernatremia 2/2 Diuresis - resolved Hypokalemia - resolved - Monitor BMP qMWF - Replete electrolytes as needed - c/w Bumex as above ID Aspiration Pneumonia s/p Abx Initially on vanc/freida and later de-escalated to unasyn, completed course of abx on 10/01. CXR s/p trach with interval worsening of b/l opacities concerning for interstitial edema vs infection/aspiration. Sputum culture grew citrobacter koseri. ID consulted; suggest no active infection and fevers likely 2/2 drug reaction. Antibiotics d/c'd and patient remains afebrile. - Monitor fevers - If patient has significant fever (>103F), repeat blood cx x2, UA/Ucx, sputum cx Endo Morbid Obesity Hirsutism Stable. Latest Hgb A1c 5.3. - SSI Q6H Dispo: TBD Prognosis: Guarded Fany Diaz MD Dept [facility] PGY1 HOSPITAL COURSE: Vinnie Aguilera is a 43 year old morbidly obese female withOSA (noncompliant with BiPAP), severe pHTN,PFTs w/restrictive pattern (2013),chronic hypoxic RF (on 3-4L O2 intermittently),Pickwickian syndrome, HTN, CHFpEF (TTE 09/23/19), chronicFe deficiency anemia, menorrhagia, and tobacco/THC use disorderwho presented with acute on chronic hypercapnic and hypoxic RF. ABGs were significant for increasing acidosis which improved once intubated in the MICU. DVT ruled out on doppler and patient had intermediate wells score, thus CT PE not obtained. Patient was diuresed aggressively in the s etting of acute on chronic HFpEF. Fevers developed 36-48 hours after intubation and patient was initially started on vanc + merrem for aspiration PNA, which was then de-escalated to Unasyn. Infectious workup negative and procal WNL. CBT trial failed twice. As patient could not be weaned off vent despite aggressive diuresis and completion of abx, tracheostomy tube was placed by ENT on 10/04/19. Fevers persisted, so GI was consulted as RUQ US demonstrated possible dilation of CBD. GI suggested fever less likely related to biliary source given normal LFTs. HIDA also negative for acute cholecystitis/biliary obstruction. Patient continued to spike fevers, sputum grew citrobacter koseri and ID was consulted. ID suspect fevers 2/2 hypersensitivity reaction likely to beta lactams. Abx discontinued and patient remained afebrile thereafter. Patient weaned off pressors and currently on minimal sedation. Tolerating trach trials throughout the day/night and saturating well. Family care conference held, plansto d/c home with 24/7 care from family members vs lyudmila placement. Pending downsizing of trach with ENT and swallow study per speech path. Associated attestation - Jeovany Franco Jr., MD - 10/22/2019 11:53 AM CDTI personally examined the patient on 10/[address] Diaz's resident note as written . I actively participated in the decision-making process. Please see the resident's note for additional details. Patient downsized to noncuffed tube. Speech to reevaluate. Nicolas Song MD - 10/21/2019 7:42 PM CDTBrief MICU Note Date: 10/21/2019 19:42 ICU day: 28 Intubation Day: Tracheostomy on 10/03. Intubated 09/20. Code Status: Full code 12 Hour Events (should include: major events throughout the day, patient status, significant labs, radiology, consult updates): - Tolerating trach collar well today. - Held down-sizing ENT tube for 1 more day, worked with PT today while on trach collar, did well. - Added mucomyst to help clear secretions. Plan for next 12 hours (should include: anticipated events, complications to watch for, pending labs/radiology/consults): - Maintain on trach collar tonight as well if tolerated. Can replace on vent if fatigued. - ENT to down size trach to uncuffed 6-0 shiley tomorrow. - Speech: FEES after trach is downsized. Continue NPO. Not safe for speaking valve on trach. - Maintain net neutral fluids or slightly negative. Nicolas Song MD be, Davonte T, PT - 10/21/2019 4:09 PM CDT Physical Therapy Progress Note: Discharge Recommendations: Therapy Needs and Potential: Patient would benefit from continued physical therapy services to address: decline in bed mobility decline in transfers decline in gait and/or balance decreased strength decreased range of motion decreased endurance Challenges to Home Transition: increased risk of falls decreased caregiver availability decreased safety awareness Equipment recommendations: wheelchair, hospital bed and mechanical lift PAIN: -Pain Description: constant -Pain Location: abdomen -Pain rating before treatment: 9, After treatment: 9 -Pain Management: Nursing Notified PRECAUTIONS: Weight Bearing Precaution: WBAT General Precautions: PPE used:Gloves and Surgical mask, General, Fall, Gleason catheter, NG tube, Hemovac, oxygen: Trach collar Bracing/Cast present or required:N/A S: Patient agreeable to working with PT. O: Patient met Semi reclined in bed. Patient seen for the following: Therapeutic exercise: instructed patient in the following: active plantar flexion/ dorsiflexion 10x, AAROM knee flex/ ext 10x, hip abd/ add 10x with verbal cues After session, patient Semi reclined in bed and call fields provided. Patient's vitals at the end of session HR; 69 bpm, Spo2: 97% on trach collar, RR: 22 bpm, BP; 104/80. RN notified A: Patient tolerated session well. Patient progressing toward goals #1. P: PT will - progress with therapy to increase strength, endurance and balance . Total Timed Tx Codes in Minutes: 8 Min Total Treatment Time in Minutes: 8 Min Davonte Nash PT, DPT Pager Number: [phone] - 10/21/2019 12:58 PM CDTNutrition Brief Note: RD was contacted by [employer] last week to provide discharge tube feed recommendations that were more cost effective for patient due to patient needing lyudmila to help meet medical needs upon d/c. RDprovided two discharge recommendation options that are cheaper including TwoCal or Jevity 1.2. Per MD order, patient was switched to TwoCal HN on 10/16. Today, RD office was called and spoke to other RD concerning patient's complaints of diarrhea. Okay to trial Jevity 1.2 formula to see if patient has better tolerance though increased goal rate. TwoCal HN is the only formula that provides 2 kcal/ml so other formulas will provide a higher goal rate. The goal is to refrain from using hydrolyzed formulasto help reduce formula cost. Please continue with recommendations below. 1. TF with Jevity 1.2 at 90 ml/hr goal rate x 24 hours- 2160 ml total volume -TF will provide 2592 kcal, 120 gm protein, 1743 ml free water -TF+ Beneprotein will provide 2817 kcal, 174 gm protein 2. Recommend a minimum of 30 ml water flush every 4 hours to help prevent tube occlusions -no additional flushes needed, TF meets needs 3. Add 3 packets beneprotein TID to help meet protein needs -50 ml flush before and after (900 ml fluid total) -54 gm protein + 225 kcal Goal(s): 1. Patient will be able to meet 100% of protein, calorie, and fluid needs via TF. D/C Planning: Continue with current recommendations. Nutrition Monitoring and Evaluation: A registered dietitian will f/u as indicated to report nutrition related information and to revise the recommended nutrition intervention(s); please call with questions or concerns, thank-you. Marialuisa Olea MS, RD, LD Clinical Dietitian RD Office: [id number] signed by Marialuisa Olea RD at 10/21/2019 1:04 PM Kira Jaimes, ERIKA - 10/21/2019 11:[address] [facility] LANGUAGE PATHOLOGY Daily Progress Note - 10/21/2019 [id number] Vinnie Aguilera : 1975 Age: [age] year old Sex: female SUBJECTIVE: Patient alert/awwake and agreeable to working with SITE PROJECT MANAGER. Patient requesting to have small amounts of juice (i.e. via sponge). RN reports patient has tolerated ATC and cuff deflation for several days. RTreports that patient continues to have copious secretions and could benefit from additional time to ensure she is stable off the vent prior to downsize to cuffless trach. OBJECTIVE: Vinnie Aguilera was seen for 1 SITE PROJECT MANAGER treatment session/s on this date. Treatment was provided due to dysphonia. Patient is a 43 year old female admitted for management of acute on chronic hypercapnic and hypoxic respiratory failure. PMH significant for ETIENNE, severe pHTN, PFTs w/ restrictive pattern (2013), chronic hypoxic RD (on 3-4L O2 intermittently), Pickwickian syndrome, HTN, CHFpEF, chronic Fe deficiency anemia, menorrhagia, tobacco abuse disorder, THC use disorder, and morbid obesity. Patient urgently intubated on 09/21/19 and unable to wean from vent despite aggressive diuresis and completion of antibiotics. ENT placed 8-0 XL Shiley on 10/04/19. Tracheostomy: Make: Shiley Size: [id number] Cuff: Deflated since 10/17 Date Placed: 10/04/19 Service: ENT Secretions: Is patient able to manage oral secretions? No Amount of tracheal secretions: Copius Ventilator/Trach Collar Status: Date vent initiated: 09/21/19 Date D/C: Initiated trach collar trials on 10/11; tolerating since 10/17 Vent Setting: ATC FiO2: 40%; 8 L/min Progress on short term goals was as follows: Voice: - Patient will achieve functional voicing via finger occlusion 80% of the time with min cues: Patient Cuff deflated upon arrival. Three rounds of tracheal suctioning provided by SITE PROJECT MANAGER with return of moderate amount of secretions. Patient unable to phonate on finger occlusion and noted with breath stacking. Therefore, PMV not placed. (continue goal) ASSESSMENT: Vinnie Aguilera demonstrated minimal progress on her dysphonia goals. Patient with cuff deflated upon arrival which she has reportedly tolerated since initial evaluation on 10/17. She continues to have difficulty managing her secretions requiring frequent tracheal suctioning. Upon finger occlusion,patient unable to achieve phonation and noted with breath stacking. This may indicate poor/reduced upper airway patency likely due to combination of trach size, excess material from the cuff (even whendeflated), and possibly her amount of secretions. Swallowing was not formally assessed today though patient observed with several sips of thin liquid and no overt s/sx of aspiration observed. However, aspiration cannot be confirmed nor ruled out at the bedside and patient is at an increased risk for silent aspiration d/t tracheostomy placement. Therefore, an objective assessment of swallow function (i.e. FEES) is indicated to r/o aspiration, further assess swallowing physiology and determine safety for PO intake. Ideally, patient would be tolerating speaking valve after trach downsize prior to completion of FEES. Discussed results/recommendations with patient, team, and ENT - all in agreement. Patient would benefit from continued SITE PROJECT MANAGER services while in-house. PLAN: 1. Recommend patient remain NPO with replacement of short-term alternative means of nutrition/hydration (i.e. NGT/DHT) pending completion of instrumental swallow study (FEES), ideally to be completed once she is tolerating speaking valve. 2. Patient is not safe for PMV. Do not place speaking valve on trach. 3. Recommend elevated head of bed and frequent, thorough oral hygiene care. 4. Recommend free water protocol (small amounts of unthickened water/ice chips only) PRN for QOL, despite aspiration risks, with strict adherence to the following precaution: Oral hygiene/care must be completed prior to water/ice intake. 5. Recommend speech therapy 2-5x/week for 15-45 minutes/session while in-house to address above goals. Kira June M.S. [facility] [employer] Speech-Language Pathologist Office: [phone] Pager: [phone] Laith Delgado MD - 10/21/2019 8:37 AM CDT ENT Progress Note 10/21/2019 08:38 CC: chronic respiratory failure 24 hr events: NAEO, VSS, trach collar for 48 hours O: Intake/Output Summary (Last 24 hours) at 10/21/2019 0838 Last data filed at 10/21/2019 0800 Gross per 24 hour Intake 5558 ml Output 1800 ml Net 3758 ml BP 121/74 | Pulse 59 | Temp 36.8 C (98.2 F) | Resp 21 | Wt 199.4 kg (439 lb 9.6 oz) | SpO2 99% | BMI 64.92 kg/m Physical Exam HEENT: 8-0 cuffed proximal XLT in situ with soft collar A/P Vinnie Aguilera is a 43 year old female sp tracheaotomy on 10/04/19 for chronic ventilator requirement. ENT contacted for first trach change. Will wait on medicine call to confirm they think the patient is ready for change to cuffless. ENT would recommend against changing to smaller cuffed. Laith Delgado MD Otolaryngology--Head and Neck Surgery Associated attestation - Main Samuel MD - 11/05/2019 2:47 PM CDTI actively participated in the decision making process. I have reviewed the above note and have made changes where applicable. Main Samuel MD Otolaryngology Fany Diaz MD - 10/21/2019 3:40 AM CDT MICU Progress Note Date of Service: 10/21/2019 03:40 Reason for ICU admission: Acute on Chronic Hypercapnic Hypoxic Respiratory Failure 2/2 Untreated ETIENNE/OHS and Acute on Chronic HFpEF ICU Day: 30 Intubation Day: s/p trach 10/04/19 Code Status: Full Last 24 hour events (major events): - Tolerating trach trials throughout the day/night and saturating well - Stable overnight; no agitation Subjective: Trach in place. Worried about her upcoming procedure. Denies any pain. Ventilator Bundle: Respiratory support: trach collar Sedation/Analgesia: Precedex Stress ulcer prophylaxis: H2 cynthia DVT prophylaxis: lovenox Nutrition: Enteral Rate: 10-60 ml/hr. Lines (with dates): L arm PIV 10/15/19 Gleason: N/A Intake/Output: Intake/Output Summary (Last 24 hours) at 10/21/2019339 Last data filed at 10/20/20191999 Gross per 24 hour Intake 3826 ml Output 1500 ml Net 2326 ml Physical Exam: Temp: [34.9 C (94.8 F)-36.9 C (98.4 F)] Heart Rate (monitor): [54-69] Pulse: [54-71] Resp: [13-30] BP: (112-145)/(68-91) MAP (mmHg): [82-106] Constitutional: No acute distress. Able to mouth words, nod to questions, write responses. HEENT: Trach and NGT in place with bridle Resp: Distant breath sounds. Good air movement. Cardio: RRR, No murmurs. GI: Morbidly obese. Non-distended. Soft. MSK: sacral sores as seen on media tab Ext: Difficult to quantify diffuse LE edema up to thighs b/l. Psych: anxious Labs (pertinent only)/Imaging: Recent Labs 10/12/19 0508 10/13/1921010/14/19 0539 10/18/19 0537 10/20/19 0608 WBC 5.15 5.32 5.85 5.49 5.52 HGB 7.3* 7.6* 7.9* 8.1* 8.6* HCT 29.4* 30.5* 31.3* 31.7* 32.5* MCV 85.5 85.2 86.7 90.8 87.4 PLT 319 317 322 248 238 Recent Labs 10/12/19 0508 10/13/19 0211 10/14/19 0539 10/15/19 0526 10/18/19 0800 NA 146* 145 146* 144 144 K 3.5 3.6 3.9 3.7 3.2* CA 9.1 9.1 9.1 8.9 6.8* CL 110* 109* 109* 105 112* BUN 32* 24* 23 22 21 CREAT 0.68 0.61 0.72 0.63 0.33* GLU 102 135* 135* 160* 115* TCO2 30 31 34* 32* 31 Recent Labs 09/30/19 0317 10/06/19 0349 10/08/19 0507 10/09/19 0400 10/10/19 0223 ALB 3.1* 3.0* 3.0* 3.0* 2.8* TPRO 7.5 7.2 7.5 7.5 7.2 BILIT 1.0 0.8 0.8 0.8 0.9 BILIUNCON 0.6 0.2 0.2 0.4 0.2 BILICONJ 0.0 0.0 0.0 0.0 0.0 ALT 11 12 14 16 14 AST 51* 72* 59* 49* 43* ALKPHOS 46 51 49 53 51 Assessment/Plan: Vinnie Aguilera is a 43 year old female admitted with Acute on Chronic hypercapnic hypoxic respiratory failure 2/2 acute HFpEF exacerbation and untreated ETIENNE/OHS. Neuro Toxic Metabolic Encephalopathy 2/2 Profound Hypercapnia THC Use Disorder Anxiety Patient obtunded upon arrival to MICU 2/2 Mikey >160 and was intubated. Originally required increased sedation for agitation, now on minimal sedation. Her mentation has improved and she is now alert and responds by mouthing, writing, and use of letter board. - avoid sedating medications - avoid antipsychotics as patient does have prolonged QTc - c/w paxil 10mg - PT/OT Resp Acute on Chronic Hypercapnic Hypoxic Respiratory Failure 2/2 Acute HFpEF Exacerbation and Untreated ETIENNE/OHS s/p tracheostomy (10/03) - on 3-4L O2 at home Severe Pulmonary HTN Pickwickian Syndrome Morbid Obesity PFTs w/ Restrictive Pattern, not COPD (2013) Tobacco Use Disorder Pt completed abx course for aspiration PNA. Was unable to be weaned off vent and had tracheostomy byENT on 10/04/19. Patient has been tolerating trach trials throughout the day with success. Family/Social work/manager supportbiofuels product manager 10/17/19 to discuss plans of care. Goal to find charitable funding and accepting facility or to stabilize patient enough to go home with community support. - c/w trach - ABG PRN - Suction Q4H and PRN - c/w Hypersal TID - c/w Duonebs Q6h - plans to downsize trach to 6.0 - speech eval: little leak around deflated cuff, so no speaking valve; Ice chips OK per verbal report, Fiber optic swallow study recommended Cardiovascular Acute on Chronic Diastolic HF HTN HLD Prolonged QTc Difficult to quantify diffuse LE edema up to thighs b/l. TTE 09/23/19 EF 55-60%, RVSP significantly elevated and RV moderately dilated. Did not comment on diastolic function, study was technically difficult. MAPs >60 off pressors. Has net negative of 16L and lost ~50 lbs since admission. - c/w Bumex IV 2 mg Q12 H - Strict I/O - avoid QTc prolonging agents - c/w ASA daily GI Elevated AST Hepatic steatosis Constipation - resolved RUQ U/S demonstrating possible dilation of CBD. GI consulted; suggest fevers are less likely from biliary source given normal LFTs, limit PPI use as known association with drug fever, and HIDA scan negative for acute cholecystitis/biliary obstruction. - bowel regimen with miralax and senokot Renal Uncompensated Respiratory Acidosis - resolved JOSELUIS and Hypernatremia 2/2 Diuresis - resolved Hypokalemia - Monitor BMP qMWF - Replete electrolytes as needed - c/w Bumex as above ID Aspiration Pneumonia s/p Abx Initially on vanc/freida and later de-escalated to unasyn, completed course of abx on 10/01. CXR s/p trach with interval worsening of b/l opacities concerning for interstitial edema vs infection/aspiration. Sputum culture grew citrobacter koseri. ID consulted; suggest no active infection and fevers likely 2/2 drug reaction. Antibiotics d/c'd and patient remains afebrile for over 72H. - Monitor fevers - If patient has significant fever (>103F), repeat blood cx x2, UA/Ucx, sputum cx Endo Morbid Obesity Hirsutism Stable. Latest Hgb A1c 5.3. - SSI Q6H Dispo: TBD Prognosis: Guarded Fany Diaz MD Dept [facility] PGY1 HOSPITAL COURSE: Vinnie Aguilera is a 43 year old morbidly obese female withOSA (noncompliant with BiPAP), severe pHTN,PFTs w/restrictive pattern (2013),chronic hypoxic RF (on 3-4L O2 intermittently),Pickwickian syndrome, HTN, CHFpEF (TTE 09/23/19), chronicFe deficiency anemia, menorrhagia, and tobacco/THC use disorderwho presented with acute on chronic hypercapnic and hypoxic RF. ABGs were significant for increasing acidosis which improved once intubation in the MICU. DVT ruled out on doppler and patient had intermediate wells score, thus CT PE not obtained. Patient was diuresed aggressively in the setting of acute on chronic HFpEF. Fevers developed 36-48 hours after intubation and patient was initially started on vanc + merrem due to concern for aspiration PNA, which was then de-escalated to Unasyn. Infectious workup negative and procal WNL. CBT trial failed twice. As patient could not be weaned off vent despite aggressive diuresis and completion of abx, tracheostomy tube was placed by ENT on 10/04/19. Fevers persisted, so GI was consulted as RUQ US demonstrated possible dilation of CBD. GI suggested fever less likely related to biliary source given normal LFTs. HIDA also negative for acute ch olecystitis/biliary obstruction. Patient continued to spike fevers, sputum grew citrobacter koseri and ID was consulted. ID suspect fevers 2/2 hypersensitivity reaction likely to beta lactams. Abx discontinued and patient remained afebrile thereafter. Patient weaned off pressors and currently on minimal sedation. Tolerating trach trials throughout the day/night and saturating well. Family care conference held, plans to d/c home with 24/7 care from family members vs lyudmila placement. Pending downsizing of trach and swallow study per speech path. Associated attestation - Jeovany Franco Jr., MD - 10/21/2019 1:01 PM CDTI personally examined the patient on 10/[address] Diaz's resident note as written . I actively participated in the decision-making process. Please see the resident's note for additional details. Hold off downsizing tracheostomy for one more day, still a bit marginal with moderate to heavy secretions. Will change to uncuffed tube tomorrow if possible. Nicolas Song MD - 10/20/2019 10:02 AM CDTBrief MICU Note Date: 10/20/2019 10:02 ICU day: 28 Intubation Day: Tracheostomy on 10/03. Intubated 09/20. Code Status: Full code 12 Hour Events (should include: major events throughout the day, patient status, significant labs, radiology, consult updates): - Tolerating trach collar well since 10/19/19 AM. - NG tube replaced with bridle, feeds re-started. Family update: updated spouse. Plan for next 12 hours (should include: anticipated events, complications to watch for, pending labs/radiology/consults): - Maintain on trach collar tonight as well if tolerated. Can replace on vent if fatigued. - ENT to down size trach to cuffed 6-0 shiley tomorrow. - Speech: FEES Monday after trach is downsized. - Maintain net neutral fluids or slightly negative. Nicolas Sogn MD Fany Toussaint MD - 10/20/2019 4:29 AM CDT MICU Progress Note Date of Service: 10/20/2019 04:30 Reason for ICU admission: Acute on Chronic Hypercapnic Hypoxic Respiratory Failure 2/2 Untreated ETIENNE/OHS and Acute on Chronic HFpEF ICU Day: 29 Intubation Day: s/p trach 10/04/19 Code Status: Full Last 24 hour events (major events): - Tolerating trach collar throughout the day and night - NGT dislodged x2 , replaced with bridle and cleared for use - Stable overnight; no agitation Subjective: Trach in place. Asking for a lemon to suck on. Denies any pain. Ventilator Bundle: Respiratory support: trach collar Sedation/Analgesia: Precedex Stress ulcer prophylaxis: H2 cynthia DVT prophylaxis: lovenox Nutrition: Enteral Rate: 10-60 ml/hr. Lines (with dates): L arm PIV 10/15/19 Gleason: namitajosephck 10/14/19 Intake/Output: Intake/Output Summary (Last 24 hours) at 10/20/2019 0430 Last data filed at 10/20/2019 0200 Gross per 24 hour Intake 2432 ml Output 2800 ml Net -368 ml Physical Exam: Temp: [35.9 C (96.6 F)-36.4 C (97.5 F)] Heart Rate (monitor): [57-75] Pulse: [56-75] Resp: [16-37] BP: (78-142)/(50-97) MAP (mmHg): [59-108] Constitutional: No acute distress. Able to mouth words, nod to questions, write responses. HEENT: Trach and NGT in place with bridle Resp: Distant breath sounds. Good air movement. Cardio: RRR, No murmurs. GI: Morbidly obese. Non-distended. Soft. MSK: sacral sores as seen on media tab Ext: Difficult to quantify diffuse LE edema up to thighs b/l. Labs (pertinent only)/Imaging: Recent Labs 10/11/19 0509 10/12/19 0508 10/13/19 0211 10/14/19 0539 10/18/19 0537 WBC 4.40 5.15 5.32 5.85 5.49 HGB 7.9* 7.3* 7.6* 7.9* 8.1* HCT 31.0* 29.4* 30.5* 31.3* 31.7* MCV 85.6 85.5 85.2 86.7 90.8 PLT 351 319 317 322 248 Recent Labs 10/12/19 0508 10/13/19 02110/14/19 0539 10/15/19 0526 10/18/19 0800 NA 146* 145 146* 144 144 K 3.5 3.6 3.9 3.7 3.2* CA 9.1 9.1 9.1 8.9 6.8* CL 110* 109* 109* 105 112* BUN 32* 24* 23 22 21 CREAT 0.68 0.61 0.72 0.63 0.33* GLU 102 135* 135* 160* 115* TCO2 30 31 34* 32* 31 Recent Labs 09/30/19 0317 10/06/19 0349 10/08/19 0507 10/09/19 0400 10/10/19 0223 ALB 3.1* 3.0* 3.0* 3.0* 2.8* TPRO 7.5 7.2 7.5 7.5 7.2 BILIT 1.0 0.8 0.8 0.8 0.9 BILIUNCON 0.6 0.2 0.2 0.4 0.2 BILICONJ 0.0 0.0 0.0 0.0 0.0 ALT 11 12 14 16 14 AST 51* 72* 59* 49* 43* ALKPHOS 46 51 49 53 51 Assessment/Plan: Vinnie Aguilera is a 43 year old female admitted with Acute on Chronic hypercapnic hypoxic respiratory failure 2/2 acute HFpEF exacerbation and untreated ETIENNE/OHS. Neuro Toxic Metabolic Encephalopathy 2/2 Profound Hypercapnia THC Use Disorder Anxiety Patient obtunded upon arrival to MICU 2/2 Mikey >160 and was intubated. Originally required increased sedation for agitation, now on minimal sedation. Her mentation has improved and she is now alert and responds by mouthing, writing, and use of letter board. - avoid sedating medications - avoid antipsychotics as patient does have prolonged QTc - c/w paxil 10mg - PT/OT Resp Acute on Chronic Hypercapnic Hypoxic Respiratory Failure 2/2 Acute HFpEF Exacerbation and Untreated ETIENNE/OHS s/p tracheostomy (10/03) - on 3-4L O2 at home Severe Pulmonary HTN Pickwickian Syndrome Morbid Obesity PFTs w/ Restrictive Pattern, not COPD (2013) Tobacco Use Disorder Pt completed abx course for aspiration PNA. Was unable to be weaned off vent and had tracheostomy byENT on 10/04/19. Patient has been tolerating trach trials throughout the day with success. Family/Social work/manager supportbiofuels product manager 10/17/19 to discuss plans of care. Goal to find charitable funding and accepting facility or to stabilize patient enough to go home with community support. - c/w trach - ABG in AM - Suction Q4H and PRN - c/w Hypersal TID - c/w Duonebs Q6h - plans to downsize trach to 6.0 on Monday (10/21/19) - Speech eval: little leak around deflated cuff, so no speaking valve; Ice chips OK per verbal report, Fiber optic swallow study recommended (Monday after trach is downsized) Cardiovascular Acute on Chronic Diastolic HF HTN HLD Prolonged QTc Difficult to quantify diffuse LE edema up to thighs b/l. TTE 09/23/19 EF 55-60%, RVSP significantly elevated and RV moderately dilated. Did not comment on diastolic function, study was technically difficult. MAPs >60 off pressors. Has net negative of 16L and lost ~50 lbs since admission. - c/w Bumex IV 2 mg Q12 H - Strict I/O - avoid QTc prolonging agents - c/w ASA daily GI Elevated AST Hepatic steatosis Constipation - resolved RUQ U/S demonstrating possible dilation of CBD. GI consulted; suggest fevers are less likely from biliary source given normal LFTs, limit PPI use as known association with drug fever, and HIDA scan negative for acute cholecystitis/biliary obstruction. - bowel regimen with miralax and senokot (patient refusing) Renal Uncompensated Respiratory Acidosis - resolved JOSELUIS and Hypernatremia 2/2 Diuresis - Resolved Hypokalemia - Monitor BMP qMWF - Replete electrolytes as needed - c/w Bumex as above ID Aspiration Pneumonia s/p Abx Initially on vanc/freida and later de-escalated to unasyn, completed course of abx on 10/01. CXR s/p trach with interval worsening of b/l opacities concerning for interstitial edema vs infection/aspiration. Sputum culture grew citrobacter koseri. ID consulted; suggest no active infection and fevers likely 2/2 drug reaction. Antibiotics d/c'd and patient remains afebrile for over 72H. - Monitor fevers - If patient has significant fever (>103F), repeat blood cx x2, UA/Ucx, sputum cx Endo Morbid Obesity Hirsutism Stable. Latest Hgb A1c 5.3. - SSI Q6H Dispo: TBD Prognosis: Guarded HOSPITAL COURSE: Vinnie Aguilera is a 43 year old morbidly obese female withOSA (noncompliant with BiPAP), severe pHTN,PFTs w/restrictive pattern (2013),chronic hypoxic RF (on 3-4L O2 intermittently),Pickwickian syndrome, HTN, CHFpEF (TTE 09/23/19), chronicFe deficiency anemia, menorrhagia, and tobacco/THC use disorderwho presented with acute on chronic hypercapnic and hypoxic RF. ABGs were significant for increasing acidosis which improved once intubation in the MICU. DVT ruled out on doppler and patient had intermediate wells score, thus CT PE not obtained. Patient was diuresed aggressively in the setting of acute on chronic HFpEF. Fevers developed 36-48 hours after intubation and patient was initially started on vanc + merrem due to concern for aspiration PNA, which was then de-escalated to Unasyn. Infectious workup negative and procal WNL. CBT trial failed twice. As patient could not be weaned off vent despite aggressive diuresis and completion of abx, tracheostomy tube was placed by ENT on 10/04/19. Fevers persisted, so GI was consulted as RUQ US demonstrated possible dilation of CBD. GI suggested fever less likely related to biliary source given normal LFTs. HIDA also negative for acute ch olecystitis/biliary obstruction. Patient continued to spike fevers, sputum grew citrobacter koseri and ID was consulted. ID suspect fevers 2/2 hypersensitivity reaction likely to beta lactams. Abx discontinued and patient remained afebrile thereafter. Patient weaned off pressors and currently on minimal sedation. Tolerating trach trials throughout the day/night and saturating well. Family care conference held, plans to d/c home with 24/7 care from family members vs lyudmila placement. Pending downsizing of trach and swallow study per speech path. Fany Diaz MD Dept Fam Med [id number] signed by Valentin Jason MD at 10/20/2019 8:27 AM CDT Associated attestation - Valentin Jason MD - 10/20/2019 8:27 AM CDTI personally examined the patient on 10/20/[address] Diaz's resident note as written. I actively participated in the decision-making process. Please see the resident's note for additional details. Remains on T-collar . Continue T collar Down size trach in am and speech eval. Continue PT/OT. Issues: Morbid obesity ETIENNE/OHS Jazmin Mir, OCCUP THER - 10/19/2019 4:05 PM CDTPTA NOTE: Attempted to see patient in PM however patient currently being cleaned up by staff. Will check back later for PT as time permits. Will notify Supervising PT with patient current status. Jazmin Mir PTA Pager#: [phone] Supervising PT Nicci Lucas Dwaine Bethea MD - 10/19/2019 6:16 AM CDTBrifarideh MICU Note Date: 10/19/2019 06:16 Code Status: CPR ICU day: 28 Intubation Day: Tracheostomy on 10/03. Intubated 09/20. Vinnie Aguilera is a 43 year old female with PMH of morbid obesity [facility] on Chronic Hypercapnic Hypoxic Respiratory Failure 2/2 Untreated ETIENNE/OHS and Acute on Chronic HFpEF 12 Hour Events: - Tolerated trach trial yesterday and all night. Doing well, saturating well. - Speech eval yesterday: Very little leak around deflated cuff, so no speaking valve; Ice chips OK per verbal report, Fiber optic swallow study recommended. - Started on SSRI -Nurses having difficulty with pur wick urinary catheter due to body habitus. Temp: [36.1 C (97 F)-37.2 C (99 F)] Heart Rate (monitor): [58-75] Pulse: [57-74] Resp: [19-27] BP: (80-144)/(67-128) MAP (mmHg): [71-134] VSSAF I/O 2500/ 800 + some urine not measured Plan for the Next 12 Hours: - Respiratory Support: - Trach collar again today and tonight. Can replace vent if fatigued. - Downsize trach to 6.0 on Monday - GI: -FEES (fiber optic swallow study) Monday or after trach is downsized. -Replace maty with bridle, Continue NGT feeds. Refusing bowel regimen -Continue to consider necessity of Gleason catheter to prevent skin breakdown - Sedation: Precedex (increase PRN). Avoid QT prolonging agents and narcotics/benzos - Abx: none; continue to monitor for fevers - Continue to maintain net neutral fluids or slightly negative. Dwaine Holden MD Medical ICU Service PGY1, Dept of Anesthesiology Fany Toussaint MD - 10/19/2019 3:28 AM CDT MICU Progress Note Date of Service: 10/19/2019 03:28 Reason for ICU admission: Acute on Chronic Hypercapnic Hypoxic Respiratory Failure 2/2 Untreated ETIENNE/OHS and Acute on Chronic HFpEF ICU Day: 28 Intubation Day: s/p trach 10/04/19 Code Status: Full Last 24 hour events (major events): - Tolerating trach collar throughout the day and last night - NGT dislodged, replaced and cleared for use - Stable overnight; no agitation - Started on paxil 10mg Subjective: Trach in place. Patient arousable and responsive. Asking about her care plan. Denies pain. Ventilator Bundle: Respiratory support: trach collar Sedation/Analgesia + RASS: Precedex Stress ulcer prophylaxis: H2 cynthia DVT prophylaxis: lovenox Nutrition: Enteral Rate: 10-60 ml/hr. Lines (with dates): L arm PIV 10/15/19 Gleason: purewick 10/14/19 Intake/Output: Intake/Output Summary (Last 24 hours) at 10/19/2019 0328 Last data filed at 10/19/2019 0100 Gross per 24 hour Intake 3051.3 ml Output 1250 ml Net 1801.3 ml Physical Exam: Temp: [36.1 C (97 F)-37.6 C (99.7 F)] Heart Rate (monitor): [58-75] Pulse: [57-74] Resp: [18-27] BP: (80-144)/(67-128) MAP (mmHg): [71-134] Constitutional: Arousable. Able to mouth words, nod to questions, write responses. HEENT: Trach and NGT in place Resp: Coarse breath sounds. Good air movement. Cardio: RRR, No murmurs. GI: Morbidly obese. Non-distended. Soft. MSK: sacral sores as seen on media tab Ext: Difficult to quantify diffuse LE edema up to thighs b/l. Labs (pertinent only)/Imaging: Recent Labs 10/11/19 0509 10/12/19 0508 10/13/19 0211 10/14/19 0539 10/18/19 0537 WBC 4.40 5.15 5.32 5.85 5.49 HGB 7.9* 7.3* 7.6* 7.9* 8.1* HCT 31.0* 29.4* 30.5* 31.3* 31.7* MCV 85.6 85.5 85.2 86.7 90.8 PLT 351 319 317 322 248 Recent Labs 10/12/19 0508 10/13/19 0211 10/14/19 0539 10/15/19 0526 10/18/19 0800 NA 146* 145 146* 144 144 K 3.5 3.6 3.9 3.7 3.2* CA 9.1 9.1 9.1 8.9 6.8* CL 110* 109* 109* 105 112* BUN 32* 24* 23 22 21 CREAT 0.68 0.61 0.72 0.63 0.33* GLU 102 135* 135* 160* 115* TCO2 30 31 34* 32* 31 Recent Labs 09/30/19 0317 10/06/19 0349 10/08/19 0507 10/09/19 0400 10/10/19 0223 ALB 3.1* 3.0* 3.0* 3.0* 2.8* TPRO 7.5 7.2 7.5 7.5 7.2 BILIT 1.0 0.8 0.8 0.8 0.9 BILIUNCON 0.6 0.2 0.2 0.4 0.2 BILICONJ 0.0 0.0 0.0 0.0 0.0 ALT 11 12 14 16 14 AST 51* 72* 59* 49* 43* ALKPHOS 46 51 49 53 51 Assessment/Plan: Vinnie Aguilera is a 43 year old female admitted with Acute on Chronic hypercapnic hypoxic respiratory failure 2/2 acute HFpEF exacerbation and untreated ETIENNE/OHS. Neuro Toxic Metabolic Encephalopathy 2/2 Profound Hypercapnia THC Use Disorder Anxiety Patient obtunded upon arrival to MICU 2/2 Mikey >160 and was intubated. Originally required increased sedation for agitation, now on minimal sedation. Her mentation has improved and she is now alert and responds by mouthing, writing, and use of letter board. - avoid sedating medications - avoid antipsychotics as patient does have prolonged QTc - started on paxil 10mg - PT/OT Resp Acute on Chronic Hypercapnic Hypoxic Respiratory Failure 2/2 Acute HFpEF Exacerbation and Untreated ETIENNE/OHS s/p tracheostomy (10/03) - on 3-4L O2 at home Severe Pulmonary HTN Pickwickian Syndrome Morbid Obesity PFTs w/ Restrictive Pattern, not COPD (2013) Tobacco Use Disorder Pt completed abx course for aspiration PNA. Was unable to be weaned off vent and had tracheostomy byENT on 10/04/19. Patient has been tolerating trach trials throughout the day with success. Family/Social work/manager supportbiofuels product manager 10/17/19 to discuss plans of care. Goal to find charitable funding and accepting facility or to stabilize patient enough to go home with community support. - c/w daily trach trials - ABG PRN - Suction Q4H and PRN - C/W Hypersal TID - c/w Duonebs Q6h Cardiovascular Acute on Chronic Diastolic HF HTN HLD Prolonged QTc 3+ pitting edema up to mid-thighs. TTE 09/23/19 EF 55-60%, RVSP significantly elevated and RV moderately dilated. Did not comment on diastolic function, study was technically difficult. MAPs >60 off pressors. Has net negative of 18L and lost ~50 lbs since admission. - Bumex IV 2 mg Q12 H - Strict I/O - avoid QTc prolonging agents - c/w ASA daily GI Elevated AST Hepatic steatosis Constipation - resolved RUQ U/S demonstrating possible dilation of CBD. GI consulted; suggest fevers are less likely from biliary source given normal LFTs, limit PPI use as known association with drug fever, and HIDA scan negative for acute cholecystitis/biliary obstruction. - bowel regimen with miralax and senokot (patient refusing) - Speech recs: maintain NGT until swallow study (likely Monday), hold on speaking valve for now Renal Uncompensated Respiratory Acidosis - resolved JOSELUIS and Hypernatremia 2/2 Diuresis - Resolved Hypokalemia - Replete electrolytes as needed - Monitor BMP - c/w Bumex as above ID Aspiration Pneumonia s/p Abx Initially on vanc/freida and later de-escalated to unasyn, has completed course of abx on 10/01. CXR s/p trach with interval worsening of b/l opacities concerning for interstitial edema vs infection/aspiration. Sputum culture grew citrobacter koseri. ID consulted; suggest no active infection and fevers likely 2/2 drug reaction. Antibiotics d/c'd and patient remains afebrile for over 72H. - Monitor fevers - If patient has significant fever (>103F), repeat blood cx x2, UA/Ucx, sputum cx Endo Morbid Obesity Hirsutism Stable. Latest Hgb A1c 5.3. - SSI Q6H Dispo: TBD Prognosis: Guarded HOSPITAL COURSE: Vinnie Aguilera is a 43 year old female withOSA, severe pHTN,PFTs w/restrictive pattern (2013),chronic hypoxic RF (on 3-4L O2 intermittently),Pickwickian syndrome, HTN, CHFpEF (TTE 09/23/19), chronicFe Deficiency Anemia, menorrhagia, tobacco use disorder, THC use disorder,and morbid obesitywho presents from the ER for management of acute on chronic hypercapnic and hypoxic RF. ABGs were significant for increasing acidosis which improved with intubation once on MICU floor. DVT ruled out on doppler, thus CT PE not obtained as well as intermediate wells score. Diuresing aggressively in the setting of acute on chronic HFpEF. Continuation of adjustment of vent settings while intubated.Fever of 100.6 36-48 hours after intubation (had vomiting after intubation). Patient was initially on Vanc + Merrem due to concern for aspiration PNA, which was then de-escalated to Unasyn. Infectious w orkup negative and procal WNL. CBT trial failed twice. As patient could not be weaned off vent despite aggressive diuresis and completion of abx, tracheostomy tube was placed by ENT on 10/03. Patient continued to spike fevers, sputum grew citrobacter koseri and ID was consulted. ID suspect fevers 2/2 hypersensitivity reaction likely to beta lactams. Abx discontinued and patient remained afebrile. GI consulted, suggest fever less likely related to biliary source given normal LFTs. HIDA negative for acute cholecystitis/biliary obstruction. Fevers have resolved. Patient weaned off pressors and on minimal sedation. Tolerating daily trach trials. Fany Diaz MD Dept Fam Med PGY1 Associated attestation - Valentin Jason MD - 10/19/2019 8:47 AM CDTI personally examined the patient on 10/19/[address] Diaz's resident note as written. I actively participated in the decision-making process. Please see the resident's note for additional details. Remains on T-collar for 24 hrs. Continue T collar Plan to change to 6.0 trach on Monday. Dobhoff with bridle. Issues: Morbid obesity ETIENNE/OHS Patricia Duque - 10/18/2019 3:00 PM Chantelapllaquita visited with the patient on rounds. Empathic and reflective listening, support, and prayer were provided. The patient said that she was frustrated, and she was tearful. She asked for prayer, and we prayed together. She was thankful for the visit. Will continue to follow as time allows. Chaplain Davina Duque, [facility] Department of Pastoral Care Office: [phone] Jazmin Nguyen PTA - 10/18/2019 2:06 PM CDTPTA NOTE: Attempted to see patient in PM. Attempts made to wake patient both verbally and with tactile stimulation however patient unable to rouse. RN notified and states patient was given pain medication earlier and is most likely the culprit. Patient was noted to withdraw from noxious stimuli however did not open eyes. Will check back later for PT as time permits. Will notify Supervising PT with patient current status. Jazmin Mir PTA Pager#: [phone] Supervising PT Beatrice Bansal Dwaine Bethea MD - 10/18/2019 7:26 AM CDT Brief MICU Note Date: 10/18/2019 07:26 Code Status: CPR ICU day: Intubation Day: Tracheostomy on 10/03. Intubated 09/20. Vinnie Aguilera is a 43 year old female with PMH of morbid obesity [facility]: [facility] on Chronic Hypercapnic Hypoxic Respiratory Failure 2/2 Untreated ETIENNE/OHS and Acute on Chronic HFpEF 12 Hour Events: - Tolerated trach trial twice yesterday without issue, was on vent O/N. Trach again this morning. Doing well, saturating well. - Family/Social work/manager supportbiofuels product manager yesterday to discuss plan of care. [facility] or to stabilize patient enough to go home with community support. -Tmax 37.6 Temp: [35.3 C (95.5 F)-37.6 C (99.7 F)] Heart Rate (monitor): [66-86] Pulse: [62-169] Resp: [13-29] BP: (107-141)/(66-88) MAP (mmHg): [77-104] VSS I/O neutral K Date Value 10/18/2019 3.2 mmol/L (L) 03/19/2014 4.2 MMOL/L Otherwise labs unremarkable Plan for the Next 12 Hours: - Respiratory Support: Trach trial again today and tonight. Can replace vent if fatigued. - ABG in AM - Sedation: Precedex (increase PRN). Avoid QT prolonging agents and narcotics/benzos - GI: Continue NGT feeds. Refusing bowel regimen - KUB to confirm replaced NGT - Speech path: Ice chips OK, Fiber optic swallow study Monday. - Abx: none; continue to monitor for fevers - Continue to maintain net neutral fluids or slightly negative. - 40mEq K IV once Dwaine Holden MD Medical ICU Service PGY1, Dept of Anesthesiology Fany Toussaint MD - 10/18/2019 12:23 AM CDT MICU Progress Note Date of Service: 10/18/2019 05:41 Reason for ICU admission: Acute on Chronic Hypercapnic Hypoxic Respiratory Failure 2/2 Untreated ETIENNE/OHS and Acute on Chronic HFpEF ICU Day: 27 Intubation Day: 27 Code Status: Full Last 24 hour events (major events): - Tolerating trach trials throughout the day, on minimal vent settings overnight - Stable overnight; no agitation reported - TF updated per dietitian recommendations Subjective: Trach in place. Patient arousable and responsive. Able to mouth words, nod to questions, write responses. Asking for water. Ventilator Bundle: Respiratory support: vent FiO2 40 RR 8 Vt 450 PEEP 5 Sedation/Analgesia + RASS: Precedex Stress ulcer prophylaxis: H2 cynthia DVT prophylaxis: lovenox Nutrition: Enteral Rate: 10-60 ml/hr. Lines (with dates): L arm PIV 10/15/19 Gleason: purewick 10/14/19 Intake/Output: Intake/Output Summary (Last 24 hours) at 10/18/2019 0541 Last data filed at 10/17/2019 2000 Gross per 24 hour Intake 1469 ml Output 2000 ml Net -531 ml Physical Exam: Temp: [35.3 C (95.5 F)-37.9 C (100.2 F)] Heart Rate (monitor): [66-86] Pulse: [62-169] Resp: [13-29] BP: (107-141)/(66-87) MAP (mmHg): [77-100] Constitutional: Arousable and responsive. HEENT: Trach and NGT in place Resp: Coarse breath sounds. Good air movement. Cardio: RRR, No murmurs. GI: Morbidly obese. Non-distended. Soft. MSK: sacral sores as seen on media tab Ext: Difficult to quantify diffuse LE edema up to thighs b/l. Labs (pertinent only)/Imaging: Recent Labs 10/10/19 02210/11/19 05010/12/19 05010/13/191 10/14/19 0539 WBC 4.91 4.40 5.15 5.32 5.85 HGB 7.3* 7.9* 7.3* 7.6* 7.9* HCT 29.7* 31.0* 29.4* 30.5* 31.3* MCV 85.8 85.6 85.5 85.2 86.7 PLT 334 351 319 317 322 Recent Labs 10/11/19 05010/12/19 0508 10/13/19 02110/14/19 0539 10/15/19 0526 NA 147* 146* 145 146* 144 K 4.0 3.5 3.6 3.9 3.7 CA 9.3 9.1 9.1 9.1 8.9 CL 110* 110* 109* 109* 105 BUN 40* 32* 24* 23 22 CREAT 0.86 0.68 0.61 0.72 0.63 GLU 100 102 135* 135* 160* TCO2 29 30 31 34* 32* Recent Labs 09/30/19 0317 10/06/19 0349 10/08/19 0507 10/09/19 0400 10/10/19 0223 ALB 3.1* 3.0* 3.0* 3.0* 2.8* TPRO 7.5 7.2 7.5 7.5 7.2 BILIT 1.0 0.8 0.8 0.8 0.9 BILIUNCON 0.6 0.2 0.2 0.4 0.2 BILICONJ 0.0 0.0 0.0 0.0 0.0 ALT 11 12 14 16 14 AST 51* 72* 59* 49* 43* ALKPHOS 46 51 49 53 51 Assessment/Plan: Vinnie Aguilera is a 43 year old female admitted with Acute on Chronic hypercapnic hypoxic respiratory failure 2/2 acute HFpEF exacerbation and untreated ETIENNE/OHS. Neuro Toxic Metabolic Encephalopathy 2/2 Profound Hypercapnia THC Use Disorder Patient obtunded upon arrival to MICU 2/2 Mikey >160 and was intubated. Originally required increased sedation for agitation, now on minimal sedation. Her mentation has improved and she is now alert and responds by mouthing, writing, and use of letter board. - avoid sedating medications - avoid antipsychotics as patient does have prolonged QTc Resp Acute on Chronic Hypercapnic Hypoxic Respiratory Failure 2/2 Acute HFpEF Exacerbation and Untreated ETIENNE/OHS s/p tracheostomy (10/03) - on 3-4L O2 at home Severe Pulmonary HTN Pickwickian Syndrome Morbid Obesity PFTs w/ Restrictive Pattern, not COPD (2013) Tobacco Use Disorder Pt completed abx course for aspiration PNA. Was unable to be weaned off vent and had tracheostomy byENT on 10/03. Has been undergoing SBT with success. - daily SBTs - consider CPAP in PM per RT recs - Suction Q4H and PRN - C/W Hypersal TID - c/w Duonebs Q6h Cardiovascular Acute on Chronic Diastolic HF HTN HLD Prolonged QTc 3+ pitting edema up to mid-thighs. TTE 09/23/19 EF 55-60%, RVSP significantly elevated and RV moderately dilated. Did not comment on diastolic function, study was technically difficult. MAPs >60 off pressors. Has net negative of 18L and lost ~50 lbs since admission. - Bumex IV 2 mg Q12 H - Strict I/O - BMP QD and Mg daily; keep K>4, Mg>2 - avoid QTc prolonging agents - c/w ASA daily GI Elevated AST Hepatic steatosis Constipation - resolved RUQ U/S demonstrating possible dilation of CBD. GI consulted; suggest fevers are less likely from biliary source given normal LFTs, limit PPI use as known association with drug fever, and HIDA scan forfurther evaluation or repeat CTAP if still concerned for biliary pathology. HIDA negative for acute c holecystitis/biliary obstruction. - bowel regimen with miralax and senokot (patient refusing) Renal Uncompensated Respiratory Acidosis - resolved JOSELUIS and Hypernatremia 2/2 Diuresis - Resolved Hypokalemia - Replete electrolytes as needed - Monitor BMP - c/w Bumex stated above. ID Aspiration Pneumonia s/p Abx FUO Initially on vanc/freida and later de-escalated to unasyn, has completed course of abx on 10/01. CXR s/p trach with interval worsening of b/l opacities concerning for interstitial edema vs infection/aspiration. Sputum culture grew citrobacter koseri. ID consulted; suggest no active infection and fevers likely 2/2 drug reaction. Antibiotics d/c'd and patient remains afebrile for over 72H. - Monitor fevers - If patient has significant fever (>103F), repeat blood cx x2, UA/Ucx, sputum cx Endo Morbid Obesity Hirsutism Stable. Latest Hgb A1c 5.3. - SSI Q6H Dispo: pending trach trials/placement Prognosis: Guarded HOSPITAL COURSE: Vinnie Aguilera is a 43 year old female withOSA, severe pHTN,PFTs w/restrictive pattern (2013),chronic hypoxic RF (on 3-4L O2 intermittently),Pickwickian syndrome, HTN, CHFpEF (TTE 09/23/19), chronicFe Deficiency Anemia, menorrhagia, tobacco use disorder, THC use disorder,and morbid obesitywho presents from the ER for management of acute on chronic hypercapnic and hypoxic RF. ABGs were significant for increasing acidosis which improved with intubation once on MICU floor. DVT ruled out on doppler, thus CT PE not obtained as well as intermediate wells score. Diuresing aggressively in the setting of acute on chronic HFpEF. Continuation of adjustment of vent settingswhile intubated. Fever of 100.6 36-48 hours after intubation (had vomiting after intubation). Patient was initially on Vanc + Merrem due to concern for aspiration PNA, which was then de-escalated to Unasyn. Infectious workup negative and procal WNL. CBT trial failed twice. As patient could not be weaned off vent despite aggressive diuresis and completion of abx, tracheostomy tube was placed by ENT on10/03. Patient continued to spike fevers, sputum grew citrobacter koseri and ID was consulted. ID suspect fevers 2/2 hypersensitivity reaction likely to beta lactams. Abx discontinued and patient remained afebrile. GI consulted, suggest fever less likely related to biliary source given normal LFTs. HIDA negative for acute cholecystitis/biliary obstruction. Fevers have resolved. Patient weaned off pressors and on minimal sedation. Tolerating daily trach trials. Fany Diaz MD Dept Fam Med PGY1 Associated attestation - Valentin Jason MD - 10/18/2019 8:51 AM CDTI personally examined the patient on 10/18/[address] Diaz's resident note as written. I actively participated in the decision-making process. Please see the resident's note for additional details. S/p trach remain on vent. Continue with T collar as tolerated. Issues: Morbid obesity ETIENNE/OHS Marialuisa Olea, RD - 10/17/2019 4:24 PM CDTNutrition Brief Note: Nutrition & Diet History: Please see possible d/c TF recommendations below. Estimated Daily Nutritional Needs: [place] (Ve-9.1, Tmax-38): 3031 kcal/day =15 kcal/day MSJ (w/o activity factor): 2739 kcal/day = 14 kcal/kg MSJ x 1.2: 3287 kcal/day = 16 kcal/kg 11-14 kcal/kg current weight = 9619-6736 kcal/day Protein: 22% of kcal need/day = >165 g/day = 0.7 g/kg current wt = >2.5 g/kg IBW Fluid: <2000 mL/day or per MD; adjust per acute needs (heart failure) Nutrition Diagnosis: Inadequate oral intake related to recent intubation as evidenced by need for TF.-resolving Nutrition Plan of Care: Intervention(s): Option 1: 1.Consider TF with TwoCal HN at 55 ml/hr goal rate x 24 hours- 1320 ml total volume -TF will provide 2640 kcal, 110 gm protein, 924 ml free water -TF + Beneprotein will provide 2865 kcal + 164 gm protein 2. Recommend a minimum of 30 ml water flush every 4 hours to help prevent tube occlusions -If no IVF, recommend 135 ml water flush every 4 hours to help meet fluid needs (Tf+flush will provide 1818 ml fluid) 3. Add 3 packets beneprotein TID to help meet protein needs -50 ml flush before and after (900 ml fluid total) -54 gm protein + 225 kcal Option 2: 1. Consider TF with Jevity 1.2 at 90 ml/hr goal rate x 24 hours- 2160 ml total volume -TF will provide 2592 kcal, 120 gm protein, 1743 ml free water -TF+ Beneprotein will provide 2817 kcal, 174 gm protein 2. Recommend a minimum of 30 ml water flush every 4 hours to help prevent tube occlusions -no additional flushes needed, TF meets needs 3. Add 3 packets beneprotein TID to help meet protein needs -50 ml flush before and after (900 ml fluid total) -54 gm protein + 225 kcal Goal(s): 1. Patient will be able to meet 100% of protein, calorie, and fluid needs via TF. D/C Planning: Continue with current recommendations. Nutrition Monitoring and Evaluation: A registered dietitian will f/u as indicated to report nutrition related information and to revise the recommended nutrition intervention(s); please call with questions or concerns, thank-you. Marialuisa Olea, MS, RD, LD Clinical Dietitian RD Office: [phone] signed by Marialuisa Oela RD at 10/17/2019 4:41 PM Pamela Becerra LBSW - 10/17/2019 3:55 PM CDTFAMILY CARE CONFERENCE Disciplines represented: SW, CM, Primary Team, CM Leadership, SW Leadership, spouse Ginny Garcia Diagnosis: RESP FAILURE Topics Discussed: Discussed patient's current status as to medical events occurred to date. Pending Consults: continued respiratory care, PT, OT, ST, Dietitian, Familial Concerns: Family concerned for lack of resources due to pending financial funding. Family reported they do have some financial support they are looking into from extended family and oriental orthodox. Discussed CM/SW are reviewing lyudmila resources for assistance in d/c planning. Spouse reported she is working with [employer] for [facility] and Medicaid as well as [facility]. Spouse was encouraged to look into [facility] as she is currently working timers inspector and plans to work general manager land department upon patient's d/c. Spouse reported she is able to provide care due to her medical background. Spouse reported they have the room for DME in the home and live in a downstairs apt. Barriers to discharge: Pt continues to require respiratory support for vent wean to arosol trach collar. Discharge Plan: Pt plans to d/c to home with 05/12 care of spouse, cousins, sister, brother vs lyudmila placement. BUCTH Grace Sheet Metal Apprentice/Care Management Office [phone] Cristobal Smith, RN - 10/17/2019 2:38 PM CDTCare Management Note 10/17/19 3:14 PM See auth cert for referrals CHEVY Astorga, RN Revenue Accountant [email or web address] O:[phone] F:[phone] Varsha Rock - 10/17/2019 11:30 AM CDTThe medical assembly responded to a call for pastoral support from the patient's nurse. The patient was unable to verbalize but communicated in writing and non-verbals. The patient is Pentecostal and her jose is important to her. The patient wept as she conveyed her feelings with her current medical condition. The patient was receptive to prayer, Scripture and song. The medical assembly provided words of comfort andencouragement. The medical assembly will attempt to follow up with the patient during the next rounds on the unit. Varsha Barber M.Div., [facility] Pharmaceutical Sales Representative, [facility] [phone] signed by Varsha Barber at 10/17/2019 5:05 PM CDT Jazmin Mir, OCCUP THER - 10/17/2019 10:23 AM CDT Physical Therapy Progress Note: Discharge Recommendations: Therapy Needs and Potential: Patient would benefit from continued physical therapy services to address: decline in bed mobility decline in transfers decline in gait and/or balance decreased strength decreased endurance, Patient demonstrates good potential to improve and meet therapy goals with further physical therapy services., Patient appears motivated to improve their functional mobility andreturn to their previous level of function. and Patient exhibits limited activity tolerance. Challenges to Home Transition: increased risk of falls decreased caregiver availability decreased safety awareness Equipment recommendations: wheelchair, hospital bed and mechanical lift PAIN: -Pain Location: diffuse/generalized with increased LLE pain -Pain Management: Nursing Notified, Repositioning Provided and Patient denies need for pain meds PRECAUTIONS: Weight Bearing Precaution: NA General Precautions: PPE used:Gloves and Surgical mask, General, Fall Bracing/Cast present or required:N/A S: Patient agreeable to working with PT. O: Patient met Semi reclined in bed. Patient very fatigued throughout session and requires multisensory cues to remain awake and on task. Patient fidgeting and attempting multiple times to reposition herself in bed. Patient seen for the following: Bed mobility: Repositioned patient to head of bed: Dependent semi reclined to long sitting X 3 instances: SBA assessed patient for dizziness and patient confirms cued patient on focused breathing as well as performing long sitting slowly so as to decrease dizziness Patient transitioned into chair position over time with increased dizziness reported however BP/HR remains WNL Therapeutic exercise: patient educated in Compensatory techniques/adaptive strategies, Deep breathing, General strengthening, Positioning and Relaxation/breathing techniques., instructed patient in the following: ankle pumps, toe flexion/extension, quad sets, glut sets, heel slides, hip abduction/adduction, hip internal/external rotation, short arc quads, patient/caregiver instructed to perform HEP 4 times per day, 10 repetitions., patient/caregiver nodds "yes" in understanding understanding of instructions. implemented BLE heel cord stretches 3 X 30 seconds holds each After session, patient semi reclined in bed as patient unable to tolerate chair position towards endof session due to dizziness and call fields provided. A: Patient tolerated session fair. Patient with slight increase in chair position tolerance however continues to report dizziness with increased trunk incline and increased LLE movement. P: PT will most likely - attempt bariatric tilt table to increase patient's upright tolerance in preparation for EOB sitting. Total Timed Tx Codes in Minutes: 40 Min Total Treatment Time in Minutes: 40 Min Jazmin Mir PTA Pager # [phone] Supervising PT Beatrice Bansal rinyWPamela pantoja LBSW - 10/17/2019 10:04 AM CDTSocial Work Note 10/17/2019 10:04 AM SW left message with [employer], Ms. Cid requesting a call back in response to voice mail received. SW called and left message for Rosiwilfrdeo Garcia at [phone] in attempts to coordinate a family meeting to discuss d/c planning. SW awaiting call back. Update 12:11pm SW spoke with spouse, Ginny Garcia [phone] regarding establishing a family meeting for d/c planning. Spouse in agreement for meeting this date at 3pm. Primary team in agreement for attendance. Ptaware of meeting. Pt requesting d/c planning to sister Reji in [place]. Update 1:44pm SW contacted [employer] regarding family visit this date and opportunity for Patient Mat[employer] tovisit for additional information needed to complete funding application. BUTCH Grace Sheet Metal Apprentice/Care Management Office [phone] Dwaine Bethea MD - 10/17/2019 7:18 AM CDTBrief MICU Note Date: 10/17/2019 07:18 Code Status: CPR ICU day: Intubation Day: Tracheostomy on 10/03. Intubated 09/20. Vinnie Aguilera is a 43 year old female with PMH of morbid obesity who [facility]: Acute on Chronic Hypercapnic Hypoxic Respiratory Failure 2/2 Untreated ETIENNE/OHS and Acute on Chronic HFpEF 12 Hour Events: - Weaned sedation, tolerated trach trial all day yesterday without issue, was on vent O/N. - Agitation O/N again - Continued airway secretions Temp: [37 C (98.6 F)-38 C (100.4 F)] Heart Rate (monitor): [65-96] Pulse: [64-105] Resp: [14-33] BP: (106-135)/(67-84) MAP (mmHg): [78-99] VSS CXR non diagnostic I:[id number]/O:[id number]/Net:-[id number] Plan for the Next 12 Hours: - Respiratory Support: Trach trial again today. Possibly vent or CPAP overnight - Sedation: Precedex (increase PRN). Avoid QT prolonging agents and narcotics/benzos - GI: Continue NGT feeds. Refusing bowel regimen - Abx: none; continue to monitor for fevers - Continue to maintain net neutral fluids or slightly negative. Dwaine Holden MD Medical ICU Service PGY1, Dept of Anesthesiology Fany Toussaint MD - 10/17/2019 12:03 AM CDT MICU Progress Note Date of Service: 10/17/2019 02:27 Reason for ICU admission: Acute on Chronic Hypercapnic Hypoxic Respiratory Failure 2/2 Untreated ETIENNE/OHS and Acute on Chronic HFpEF ICU Day: 26 Intubation Day: 26 Code Status: Full Last 24 hour events (major events): - Tolerating daily 3 hr trach trials - Agitation overnight Subjective: Trach in place. Patient arousable and responsive. Able to mouth words, nod to questions, write responses. Patient reports pain in L knee. Ventilator Bundle: Respiratory support: vent FiO2 50 RR 16 Vt 450 PEEP 7 Sedation/Analgesia + RASS:Precedex Stress ulcer prophylaxis: H2 cynthia DVT prophylaxis: heparin Nutrition: Enteral Rate: 10-60 ml/hr. Lines (with dates): L arm PIV 10/15/19 Gleason: purewick 10/14/19 Intake/Output: Intake/Output Summary (Last 24 hours) at 10/17/2019 0227 Last data filed at 10/17/2019 0000 Gross per 24 hour Intake 2752.5 ml Output 3900 ml Net -1147.5 ml Physical Exam: Temp: [36.8 C (98.2 F)-37.6 C (99.7 F)] Heart Rate (monitor): [59-96] Pulse: [59-105] Resp: [10-33] BP: (109-148)/(67-93) MAP (mmHg): [79-109] POCT Blood Glucose (manual): [141 mg/dL] Constitutional: Arousable and responsive. HEENT: Trach and NGT in place Resp: Coarse breath sounds. Good air movement. Cardio: RRR, No murmurs. GI: Morbidly obese. Non-distended. Soft. MSK: sacral sores as seen on media tab Ext: Difficult to quantify diffuse LE edema up to thighs b/l. Labs (pertinent only)/Imaging: Recent Labs 10/10/19 02210/11/19 0509 10/12/19 0508 10/13/19 0211 10/14/19 0539 WBC 4.91 4.40 5.15 5.32 5.85 HGB 7.3* 7.9* 7.3* 7.6* 7.9* HCT 29.7* 31.0* 29.4* 30.5* 31.3* MCV 85.8 85.6 85.5 85.2 86.7 PLT 334 351 319 317 322 Recent Labs 10/11/19 05010/12/19 0508 10/13/19 0211 10/14/19 0539 10/15/19 0526 NA 147* 146* 145 146* 144 K 4.0 3.5 3.6 3.9 3.7 CA 9.3 9.1 9.1 9.1 8.9 CL 110* 110* 109* 109* 105 BUN 40* 32* 24* 23 22 CREAT 0.86 0.68 0.61 0.72 0.63 GLU 100 102 135* 135* 160* TCO2 29 30 31 34* 32* Recent Labs 09/30/19 0317 10/06/19 0349 10/08/19 0507 10/09/19 0400 10/10/19 0223 ALB 3.1* 3.0* 3.0* 3.0* 2.8* TPRO 7.5 7.2 7.5 7.5 7.2 BILIT 1.0 0.8 0.8 0.8 0.9 BILIUNCON 0.6 0.2 0.2 0.4 0.2 BILICONJ 0.0 0.0 0.0 0.0 0.0 ALT 11 12 14 16 14 AST 51* 72* 59* 49* 43* ALKPHOS 46 51 49 53 51 Assessment/Plan: Vinnie Aguilera is a 43 year old female admitted with Acute on Chronic hypercapnic hypoxic respiratory failure 2/2 acute HFpEF exacerbation and untreated ETIENNE/OHS. Neuro Toxic Metabolic Encephalopathy 2/2 Profound Hypercapnia THC Use Disorder Patient obtunded upon arrival to MICU 2/2 Mikey >160 and was intubated. Originally required increased sedation for agitation, now on minimal sedation. Her mentation is improving slowly day by day. - avoid sedating medications - avoid antipsychotics as patient does have prolonged QTc Resp Acute on Chronic Hypercapnic Hypoxic Respiratory Failure 2/2 Acute HFpEF Exacerbation and Untreated ETIENNE/OHS s/p tracheostomy (10/03) - on 3-4L O2 at home Severe Pulmonary HTN Pickwickian Syndrome Morbid Obesity PFTs w/ Restrictive Pattern, not COPD (2013) Tobacco Use Disorder Pt completed abx course for aspiration PNA. Was unable to be weaned off vent and had tracheostomy byENT on 10/03. Has been undergoing SBT with success. - daily SBTs - consider CPAP in PM - Suction Q4H and PRN - C/W Hypersal TID - c/w Duonebs Q6h Cardiovascular Acute on Chronic Diastolic HF HTN HLD Prolonged QTc 3+ pitting edema up to mid-thighs. TTE 09/23/19 EF 55-60%, RVSP significantly elevated and RV moderately dilated. Did not comment on diastolic function, study was technically difficult. MAPs >60 off pressors. Has net negative of 16L and lost ~50 lbs since admission. - Bumex IV 2 mg Q12 H - Strict I/O - BMP QD and Mg daily; keep K>4, Mg>2 - avoid QTc prolonging agents - c/w ASA daily GI Elevated AST Hepatic steatosis Constipation - resolved RUQ U/S demonstrating possible dilation of CBD. GI consulted; suggest fevers are less likely from biliary source given normal LFTs, limit PPI use as known association with drug fever, and HIDA scan forfurther evaluation or repeat CTAP if still concerned for biliary pathology. HIDA negative for acute c holecystitis/biliary obstruction. - bowel regimen with miralax and senokot (patient refusing) Renal Uncompensated Respiratory Acidosis - resolved JOSELUIS and Hypernatremia 2/2 Diuresis - Resolved Hypokalemia - Replete electrolytes as needed - Monitor BMP - c/w Bumex stated above. ID Aspiration Pneumonia s/p Abx FUO -resolved Initially on vanc/freida and later de-escalated to unasyn, has completed course of abx on 10/01. CXR s/p trach with interval worsening of b/l opacities concerning for interstitial edema vs infection/aspiration. Sputum culture grew citrobacter koseri. ID consulted; suggest no active infection and fevers likely 2/2 drug reaction. Antibiotics d/c'd and patient remains afebrile for over 72H. - Monitor fevers - If patient has significant fever (>103F), repeat blood cx x2, UA/Ucx, sputum cx Endo Morbid Obesity Hirsutism Stable. Latest Hgb A1c 5.3. - SSI Q6H Dispo: TBD Prognosis: Guarded HOSPITAL COURSE: Vinnie Aguilera is a 43 year old female withOSA, severe pHTN,PFTs w/restrictive pattern (2013),chronic hypoxic RF (on 3-4L O2 intermittently),Pickwickian syndrome, HTN, CHFpEF (TTE 09/23/19), chronicFe Deficiency Anemia, menorrhagia, tobacco use disorder, THC use disorder,and morbid obesitywho presents from the ER for management of acute on chronic hypercapnic and hypoxic RF. ABGs were significant for increasing acidosis which improved with intubation once on MICU floor. DVT ruled out on doppler, thus CT PE not obtained as well as intermediate wells score. Diuresing aggressively in the setting of acute on chronic HFpEF. Continuation of adjustment of vent settingswhile intubated. Fever of 100.6 36-48 hours after intubation (had vomiting after intubation). Patient was initially on Vanc + Merrem due to concern for aspiration PNA, which was then de-escalated to Unasyn. Infectious workup negative and procal WNL. CBT trial failed twice. As patient could not be weaned off vent despite aggressive diuresis and completion of abx, tracheostomy tube was placed by ENT on10/03. Patient continued to spike fevers, sputum grew citrobacter koseri and ID was consulted. ID suspect fevers 2/2 hypersensitivity reaction likely to beta lactams. Abx discontinued and patient remained afebrile. GI consulted, suggest fever less likely related to biliary source given normal LFTs. HIDA negative for acute cholecystitis/biliary obstruction. Fevers have resolved. Patient weaned off pressors and on minimal sedation. Will continue daily SBT, today day 4 of 3-hour trach challenge. Fany Diaz MD Dept Fam Med PGY1 Associated attestation - Valentin Jason MD - 10/17/2019 8:51 AM CDTI personally examined the patient on 10/17/[address] Diaz's resident note as written. I actively participated in the decision-making process. Please see the resident's note for additional details. S/p trach remain on vent. Tolerated T collar collar during daytime. Continue with T collar as tolerated. LTAC placement if possible. Issues: Morbid obesity ETIENNE/OHS Pamela Swanson LBSW - 10/16/2019 11:43 AM CDTSocial Work Note 10/16/2019 11:43 AM SW met with patient. Pt is awake, alert, and attempting to communicate by mouthing words, writing, and using the alphabet board. Pt requested SW to contact sister Mandy. Pt provided number, however nota working number. SW provided support. Pt express non verbals of frustration over her medical conditi on and when she will be able to transition out of ICU. BUTCH [employer] Apprentice/Care Management Office [phone] Dwaine Bethea MD - 10/16/2019 9:59 AM CDTBrief MICU Note Date: 10/16/2019 09:59 Code Status: CPR ICU day: 25 Intubation Day: Tracheostomy on 10/03. Intubated 09/20. Vinnie Aguilera is a 43 year old female with PMH of morbid obesity who was admitted to the MICUwith: Acute on Chronic Hypercapnic Hypoxic Respiratory Failure 2/2 Untreated ETIENNE/OHS and Acute on Chronic HFpEF 12 Hour Events: - Weaned sedation, tolerated trach trial for 3-3.5 hours BID yesterday. - Agitation O/N Temp: [35.2 C (95.4 F)-37 C (98.6 F)] Heart Rate (monitor): [59-92] Pulse: [59-94] Resp: [10-35] BP: (110-153)/(64-102) MAP (mmHg): [79-116] POCT Blood Glucose (manual): [141 mg/dL-144 mg/dL] Family Update: - Discussed condition with her significant other. Plan for the Next 12 Hours: - Respiratory Support: Trach trial again this afternoon. PRVC: RR 16, VT 450, PEEP 7, FiO2 50%, saturating 98% - Sedation: Precedex (increase PRN). Avoid QT prolonging agents and narcotics/benzos - GI: Continue NGT feeds - Abx: none; continue to monitor for fevers - Pressors: none - Continue to maintain net neutral fluids or slightly negative. Dwaine Holden MD Medical ICU Service PGY1, Dept of Anesthesiology Zuly Leyva MD - 10/16/2019 8:24 AM CDT MICU Progress Note Date of Service: 10/16/2019 08:24 Reason for ICU admission: Acute on chronic hypercapnic hypoxic respiratory failure 2/2 ICU Day: 23 Intubation Day: 23 Code Status: Full Last 24 hour events (major events): - was on trach collar all night and tolerated it well Subjective: Pt has trach. Wants to drink water Ventilator Bundle: Sedation/Analgesia + RASS:Precedex Stress ulcer prophylaxis: H2 cynthia DVT prophylaxis: heparin Nutrition: Enteral Rate: 10-60 ml/hr. Lines (with dates): L arm PIV 10/09/19 L arm PIV 10/12/19 Gleason: purewick 10/12/19 Intake/Output: Intake/Output Summary (Last 24 hours) at 10/16/2019 0824 Last data filed at 10/16/2019 0600 Gross per 24 hour Intake 2073 ml Output 3350 ml Net -1277 ml Physical Exam: Temp: [35.2 C (95.4 F)-37 C (98.6 F)] Heart Rate (monitor): [59-92] Pulse: [59-94] Resp: [10-35] BP: (110-153)/(64-102) MAP (mmHg): [79-116] POCT Blood Glucose (manual): [141 mg/dL-144 mg/dL] Constitutional: Arousable. HEENT: Trach and NGT in place Resp: Coarse breath sounds. Good air movement. Cardio: RRR, No murmurs. GI: Severely obese. Non-distended. Soft. MSK: sacral sores as seen on media tab Ext: Difficult to quantify diffuse LE edema up to thighs b/l. Improved from before. Labs (pertinent only)/Imaging: Results for VINNIE AGUILERA ( ) as of 10/14/2019 03:01 Ref. Range 10/13/2019 12:58 PH ART Latest Ref Range: 7.35 - 7.45 7.42 PCO2 ART Latest Ref Range: 35 - 45 mmHg 47 (H) PO2 ART Latest Ref Range: 80 - 100 mmHg 96 HCO3 ART Latest Ref Range: 22 - 26 mEq/L 30 (H) ARTERIAL BE Latest Ref Range: -3.0 - 3.0 mEq/L 4.6 (H) Assessment/Plan: Vinnie Aguilera is a 43 year old female admitted with Acute on Chronic hypercapnic hypoxic respiratory failure 2/2 acute HFpEF exacerbation and untreated ETIENNE/OHS. Neuro Toxic Metabolic Encephalopathy 2/2 Profound Hypercapnia THC Use Disorder Patient obtunded upon arrival to MICU 2/2 Mikey >160 and was intubated. Originally required increased sedation for agitation, now on minimal sedation. Her mentation is improving slowly day by day. - avoid sedating medications - avoid antipsychotics as patient does have prolonged QTc Resp Acute on Chronic Hypercapnic Hypoxic Respiratory Failure 2/2 Acute HFpEF Exacerbation and Untreated ETIENNE/OHS s/p tracheostomy (10/03) - on 3-4L O2 at home Severe Pulmonary HTN Pickwickian Syndrome Morbid Obesity PFTs w/ Restrictive Pattern, not COPD (2013) Tobacco Use Disorder Pt completed abx course for aspiration PNA. Was unable to be weaned off and had tracheostomy done byENT on 10/03. Has been undergoing SBT with success. Will continue to do it BID today - Suction Q4H and PRN - C/W Hypersal TID - c/w Duonebs Q6h Cardiovascular Acute on Chronic Diastolic HF HTN | HLD Prolonged QTc 3+ pitting edema up to mid-thighs on presentation. TTE 09/23/19 EF 55-60%, RVSP significantly elevated and RV moderately dilated. Did not comment on diastolic function, study was technically difficult. MAPs >60 off pressors. Has net negative of 16L and lost ~50 lbs since admission. - Bumex IV 2 mg Q12 H - Strict I/O - BMP QD and Mg daily; keep K>4, Mg>2 - avoid QTc prolonging agents - c/w ASA daily GI Elevated AST Hepatic steatosis Constipation - resolved RUQ U/S demonstrating possible dilation of CBD. GI consulted; suggest fevers are less likely from biliary source given normal LFTs, limit PPI use as known association with drug fever, and HIDA scan forfurther evaluation or repeat CTAP if still concerned for biliary pathology. HIDA negative for acute c holecystitis/biliary obstruction. Do not suspect GI cause of infection at this time. - bowel regimen with miralax and senokot Renal Uncompensated Respiratory Acidosis - resolved JOSELUIS and Hypernatremia 2/2 Diuresis - Resolved Hypokalemia - Replete electrolytes as needed - Monitor BMP - c/w Bumex stated above. ID Aspiration Pneumonia s/p Abx FUO Initially on vanc/freida and later de-escalated to unasyn, has completed course of abx on 10/01. CXR s/p trach with interval worsening of b/l opacities concerning for interstitial edema vs infection/aspiration. Sputum culture grew citrobacter koseri. ID consulted; suggest no active infection and fevers likely 2/2 drug reaction, recommend d/c unasyn and no further abx therapy. Patient remains afebrile for over 72H. - Monitor fevers - If patient has significant fever (>103F), repeat blood cx x2, UA/Ucx, sputum cx Endo Morbid Obesity Hirsutism Stable. Latest Hgb A1c 5.3. - SSI Q6H Dispo: TBD Prognosis: Guarded HOSPITAL COURSE: Vinnie Aguilera is a 43 year old female withOSA, severe pHTN,PFTs w/restrictive pattern (2013),chronic hypoxic RF (on 3-4L O2 intermittently),Pickwickian syndrome, HTN, CHFpEF (TTE 09/23/19), chronicFe Deficiency Anemia, menorrhagia, tobacco use disorder, THC use disorder,and morbid obesitywho presents from the ER for management of acute on chronic hypercapnic and hypoxic RF. ABGs were significant for increasing acidosis which improved with intubation once on MICU floor. DVT ruled out on doppler, thus CT PE not obtained as well as intermediate wells score. Diuresing aggressively in the setting of acute on chronic HFpEF. Continuation of adjustment of vent settingswhile intubated. Fever of 100.6 36-48 hours after intubation (had vomiting after intubation). Patient was initially on Vanc + Merrem due to concern for aspiration PNA, which was then de-escalated to Unasyn. Infectious workup negative and procal WNL. CBT trial failed twice. As patient could not be weaned off vent despite aggressive diuresis and completion of abx, tracheostomy tube was placed by ENT on10/03. Patient continued to spike fevers, sputum grew citrobacter koseri and ID was consulted. ID suspect fevers 2/2 hypersensitivity reaction likely to beta lactams. Abx discontinued and patient remained afebrile. GI consulted, suggest fever less likely related to biliary source given normal LFTs. HIDA negative for acute cholecystitis/biliary obstruction. Fevers have resolved. Patient weaned off pressors and on minimal sedation. Will continue daily SBT, today day 3 of 3-hour trach challenge. Zuly Carbone MD Internal medicine PGY - 3 Pager #: [phone] Associated attestation - Valentin Jason MD - 10/16/2019 10:49 AM CDTI personally examined the patient on 10/16/[address] Carbone's resident note as written .I actively participated in the decision-making process. Please see the resident's note for additional details. S/p trach remain on vent. Tolerated 6.5 hr of T collar collar yesterday. Extend T-collar as tolerated. Issues: Morbid obesity ETIENNE/OHS Marialuisa Olea, RD - 10/15/2019 12:45 PM CDT Medical Nutrition Therapy- Progress Note: Malnutrition Assessment: Nutritional Diagnosis: None SGA Rating: Well-Nourished, Normal History of Present Illness Patient admitted due to dyspnea and acute on chronic hypercapnic and hypoxic respiratory failure dueto HF exacerbation. Patient intubated upon arrival. Shortly after intubation and sedation with propofol, patient became hypotensive requiring peripheral levophed to maintain MAP >60. Patient is also11 pack per year smoker also with marijuana use. Patient also with uncompensated respiratory acidosis, severe pulmonary hypertension, and toxic metabolic encephalopathy. NG tube placed 09/20/19. Patient also with iron deficiency. Patient also with chronic volume overload and aspiration pneumonia. Patient with toxic metabolic encephalopathy due to profound hypercapnia. Patient now with trach but remainson vent as well. GI and Nutrition Related Findings: Symptoms: N/A Difficulty: N/A GI tract alteration: N/A Alternative means of nutrition: DHT General: Edema Lab and Medical Test Results: NA Date Value 10/15/2019 144 mmol/L 03/19/2014 138 MMOL/L K Date Value 10/15/2019 3.7 mmol/L 03/19/2014 4.2 MMOL/L CALCIUM Date Value 10/15/2019 8.9 mg/dL 03/19/2014 9.2 MG/DL GLUCOSE Date Value 10/15/2019 160 mg/dL (H) 03/19/2014 88 MG/DL Ref. Range 09/20/2019 22:22 IRON Latest Ref Range: 50 - 160 ug/dL 37 (L) Ref. Range 10/15/2019 11:57 POCT GLU Latest Ref Range: 70 - 110 mg/dL 155 (H) Weight History: Wt Readings from Last 20 Encounters: 10/15/19 201 kg (443 lb 2 oz) 10/06/18 225.4 kg (496 lb 14.7 oz) 05/01/18 218 kg (480 lb 9.6 oz) 06/14/16 183.7 kg (405 lb) 05/29/16 186 kg (410 lb) 10/14/15 165.9 kg (365 lb 11.2 oz) 09/07/15 165.6 kg (365 lb) 03/19/14 173.3 kg (382 lb) 03/12/14 172.8 kg (380 lb 14.4 oz) 12% weight loss in 1 year- 36 lbs Inflammatory Markers: Increased Respiratory Rate, Increased Heart Rate, Hyperglycemia Current Dietary Order(s): NPO Except Meds Diet. Nurse to ask primary team when feeding may resume. Jevity 1.2 Cassandra (1.2 kcal/mL, protein 18.5% of kcal) EMR documented food allergies/intolerance/cultural preferences: will confirm at later visit Nutrition & Diet History: Per nursing flowsheet, Patient restarted on feeds as of . Patient was on Pivot 1.5 but was switched to Jevity 1.2 after running out of pivot 1.5. Per RD conversation with materials management, Pivot1.5 is currently in stock. Spoke with patient's nurse today. Per nurse, patient currently receiving Jevity 1.2 at 60 Ml/hr providing 1728 kcal/day and 80 gm protein which does not meet the patient's needs. (see below). RD has provided multiple different tube feed recommendations below depending on formula availability. RD will continue to follow. Estimated Daily Nutritional Needs: [place] (Ve-8.51, Tmax-37.6): 2961kcal/day =15 kcal/day MSJ (w/o activity factor): 2739 kcal/day = 14 kcal/kg MSJ x 1.2: 3287 kcal/day = 16 kcal/kg Protein: 21% of kcal need/day = >165 g/day = 0.7 g/kg current wt = >2.5 g/kg IBW Fluid: <2000 mL/day or per MD; adjust per acute needs (heart failure) Nutrition Diagnosis: Inadequate oral intake related to recent intubation as evidenced by need for TF.-resolving Nutrition Plan of Care: Intervention(s): 1. Recommend TF with Pivot 1.5 at 75 ml/hr goal rate Provides 2700 kcal, 169 gm protein, 1366 ml free water 2. Recommend minimum of 30 ml water flush every 4 hours to help prevent tube occlusions -If no IVF, recommend 90 ml water flush every 4 hours to help meet fluid needs (TF+ Flush provides 1906 ml fluid) 3. Monitor glucose and electrolytes while on TF 4. Keep head of bed elevated 30-45 degrees for patient at risk for aspiration 5. Advance diet per MD/SITE PROJECT MANAGER 6. Continue with protonix 8. If out of Pivot 1.5 formula, then may consider continuous feeds with Vital 1.5 formula: 75 ml/hr goal rate Add 3 packets beneprotein TID No flush needed, TF meets fluid needs 9. If out of Vital 1.5 formula, then may consider continuous feeds with Jevity 1.2 formula: 95 ml/hr goal rate Add 3 packets beneprotein TID No flush needed, TF meets fluid needs Goal(s): 1. Patient will be able to meet 100% of protein, calorie, and fluid needs via TF. D/C Planning: Continue with current recommendations. Nutrition Monitoring and Evaluation: A registered dietitian will f/u as indicated to report nutrition related information and to revise the recommended nutrition intervention(s); please call with questions or concerns, thank-you. Marialuisa Olea MS, RD, LD Clinical Dietitian RD Office: [phone] Dwaine Holden MD - 10/15/2019 10:49 AM CDTBdouglas MICU Note Date: 10/15/2019 10:49 Code Status: CPR ICU day: 24 Intubation Day: Tracheostomy on 10/03. Intubated 09/20. Vinnie Aguilera is a 43 year old female with PMH of morbid obesity [facility]: [facility] on Chronic Hypercapnic Hypoxic Respiratory Failure 2/2 Untreated ETIENNE/OHS and Acute on Chronic HFpEF 12 Hour Events: - Weaned sedation, tolerated trach trial for 2 hours BID yesterday, 3.5 hours so far today. - Net neutral I/O Temp: [35.7 C (96.3 F)-37.8 C (100 F)] Heart Rate (monitor): [76-104] Pulse: [75-104] Resp: [12-28] BP: (91-136)/(54-85) MAP (mmHg): [72-98] Family Update: - Discussed condition with her significant other. Plan for the Next 12 Hours: - Respiratory Support: Trach trial again this afternoon. PRVC: RR 16, VT 450, PEEP 7, FiO2 50%, saturating 98% - Sedation: Precedex (increase PRN). Avoid QT prolonging agents and narcotics/benzos - GI: Continue Jevity supplement - Bringing dietary back on board for updated recommendations. - Abx: none; continue to monitor for fevers - Pressors: none - Continue to maintain net neutral fluids or slightly negative. - PT/ OT Dwaine Holden MD Medical ICU Service PGY1, Dept of Anesthesiology Zuly Leyva MD - 10/15/2019 5:28 AM CDT MICU Progress Note Date of Service: 10/15/2019 05:28 Reason for ICU admission: Acute on chronic hypercapnic hypoxic respiratory failure 06/16 ICU Day: 23 Intubation Day: Code Status: Full Last 24 hour events (major events): - tolerated 2 hours of trach collar Subjective: Pt has trach. Wants to be able to leave hospital. Ventilator Bundle: Sedation/Analgesia + RASS: Precedex, Fentanyl, Versed. RASS -2 Stress ulcer prophylaxis: H2 cynthia DVT prophylaxis: heparin Nutrition: Enteral Rate: 10-60 ml/hr. Lines (with dates): L arm PIV 10/09/19 L arm PIV 10/12/19 Gleason: purewick 10/12/19 Intake/Output: Intake/Output Summary (Last 24 hours) at 10/15/2019 0528 Last data filed at 10/15/2019 0400 Gross per 24 hour Intake 1454.9 ml Output 2810 ml Net -1355.1 ml Physical Exam: Temp: [35.7 C (96.3 F)-38.3 C (100.9 F)] Heart Rate (monitor): [76-104] Pulse: [75-104] Resp: [11-28] BP: (91-136)/(54-85) MAP (mmHg): [72-98] Constitutional: Arousable. HEENT: Trach and NGT in place Resp: Coarse breath sounds. Good air movement. Cardio: RRR, No murmurs. GI: Severely obese. Non-distended. Soft. MSK: sacral sores as seen on media tab Ext: Difficult to quantify diffuse LE edema up to thighs b/l. Improved from before. Labs (pertinent only)/Imaging: Results for VINNIE AGUILERA ( ) as of 10/14/2019 03:01 Ref. Range 10/13/2019 12:58 PH ART Latest Ref Range: 7.35 - 7.45 7.42 PCO2 ART Latest Ref Range: 35 - 45 mmHg 47 (H) PO2 ART Latest Ref Range: 80 - 100 mmHg 96 HCO3 ART Latest Ref Range: 22 - 26 mEq/L 30 (H) ARTERIAL BE Latest Ref Range: -3.0 - 3.0 mEq/L 4.6 (H) Assessment/Plan: Vinnie Aguilera is a 43 year old female admitted with Acute on Chronic hypercapnic hypoxic respiratory failure 2/2 acute HFpEF exacerbation and untreated ETIENNE/OHS. Neuro Toxic Metabolic Encephalopathy 2/2 Profound Hypercapnia THC Use Disorder Patient obtunded upon arrival to MICU 2/2 Mikey >160 and was intubated. Originally required increased sedation for agitation, now on minimal sedation. Her mentation is improving slowly day by day. - avoid sedating medications - avoid antipsychotics as patient does have prolonged QTc Resp Acute on Chronic Hypercapnic Hypoxic Respiratory Failure 2/2 Acute HFpEF Exacerbation and Untreated ETIENNE/OHS s/p tracheostomy (10/03) - on 3-4L O2 at home Severe Pulmonary HTN Pickwickian Syndrome Morbid Obesity PFTs w/ Restrictive Pattern, not COPD (2013) Tobacco Use Disorder Pt completed abx course for aspiration PNA. Was unable to be weaned off and had tracheostomy done byENT on 10/03. Has been undergoing SBT with success. Will continue to do it BID today - Suction Q4H and PRN - C/W Hypersal TID - c/w Duonebs Q6h Cardiovascular Acute on Chronic Diastolic HF HTN | HLD Prolonged QTc 3+ pitting edema up to mid-thighs on presentation. TTE 09/23/19 EF 55-60%, RVSP significantly elevated and RV moderately dilated. Did not comment on diastolic function, study was technically difficult. MAPs >60 off pressors. Has net negative of 16L and lost ~50 lbs since admission. - Bumex IV 2 mg Q12 H - Strict I/O - BMP QD and Mg daily; keep K>4, Mg>2 - avoid QTc prolonging agents - c/w ASA daily GI Elevated AST Hepatic steatosis Constipation - resolved RUQ U/S demonstrating possible dilation of CBD. GI consulted; suggest fevers are less likely from biliary source given normal LFTs, limit PPI use as known association with drug fever, and HIDA scan forfurther evaluation or repeat CTAP if still concerned for biliary pathology. HIDA negative for acute c holecystitis/biliary obstruction. Do not suspect GI cause of infection at this time. - bowel regimen with miralax and senokot Renal Uncompensated Respiratory Acidosis - resolved JOSELUIS and Hypernatremia 2/2 Diuresis - Resolved Hypokalemia - Replete electrolytes as needed - Monitor BMP - c/w Bumex stated above. ID Aspiration Pneumonia s/p Abx FUO Initially on vanc/freida and later de-escalated to unasyn, has completed course of abx on 10/01. CXR s/p trach with interval worsening of b/l opacities concerning for interstitial edema vs infection/aspiration. Sputum culture grew citrobacter koseri. ID consulted; suggest no active infection and fevers likely 2/2 drug reaction, recommend d/c unasyn and no further abx therapy. Patient remains afebrile for over 72H. - Monitor fevers - If patient has significant fever (>103F), repeat blood cx x2, UA/Ucx, sputum cx Endo Morbid Obesity Hirsutism Stable. Latest Hgb A1c 5.3. - SSI Q6H Dispo: TBD Prognosis: Guarded HOSPITAL COURSE: Vinnie Aguilera is a 43 year old female withOSA, severe pHTN,PFTs w/restrictive pattern (2013),chronic hypoxic RF (on 3-4L O2 intermittently),Pickwickian syndrome, HTN, CHFpEF (TTE 09/23/19), chronicFe Deficiency Anemia, menorrhagia, tobacco use disorder, THC use disorder,and morbid obesitywho presents from the ER for management of acute on chronic hypercapnic and hypoxic RF. ABGs were significant for increasing acidosis which improved with intubation once on MICU floor. DVT ruled out on doppler, thus CT PE not obtained as well as intermediate wells score. Diuresing aggressively in the setting of acute on chronic HFpEF. Continuation of adjustment of vent settingswhile intubated. Fever of 100.6 36-48 hours after intubation (had vomiting after intubation). Patient was initially on Vanc + Merrem due to concern for aspiration PNA, which was then de-escalated to Unasyn. Infectious workup negative and procal WNL. CBT trial failed twice. As patient could not be weaned off vent despite aggressive diuresis and completion of abx, tracheostomy tube was placed by ENT on10/03. Patient continued to spike fevers, sputum grew citrobacter koseri and ID was consulted. ID suspect fevers 2/2 hypersensitivity reaction likely to beta lactams. Abx discontinued and patient remained afebrile. GI consulted, suggest fever less likely related to biliary source given normal LFTs. HIDA negative for acute cholecystitis/biliary obstruction. Fevers have resolved. Patient weaned off pressors and on minimal sedation. Will continue daily SBT, today day 3 of 3-hour trach challenge. Zuly Carbone MD Internal medicine PGY - 3 Pager #: [phone] Associated attestation - Valentin Jason MD - 10/15/2019 8:45 AM CDTI personally examined the patient on 10/15/[address] Carbone's resident note as written .I actively participated in the decision-making process. Please see the resident's note for additional details. S/p trach remain on vent. Tolerated T collar collar twice X 2 hrs. Extend T-collar as tolerated. Issues: Morbid obesity ETIENNE/OHS Pamela Swanson LBSW - 10/14/2019 1:46 PM CDTSocial Work Note 10/14/2019 1:46 PM SW spoke with Patient Matters regarding status of Medicaid Pending. Patient Matters will continue tofollow s/p extubation and determine which form to submit with SSA pending medical status. SW encouraged primary team to talk with spouse regarding prepararing spouse for patient's functionalstatus upon d/c and patient's pending needs. Pt does not have funding and will likely d/c to home with family support vs ability to find a [place]SA Medicaid Pending facility. BUTCH [employer] Apprentice/Care Management Office [phone] Liz Azevedo MD - 10/14/2019 1:43 PM CDTBrief Note: Updated patient's spouse, Ac Garcia, at [phone]. Liz Krueger MD PGY-2, [facility] Team Doctor's Number: [id number] hCristobal beauchamp RN - 10/14/2019 1:07 PM CDTCare Management Continued Stay Assessment LOS Day: 23 Estimated /Planned Discharge Date: reeval 10/21/19 MICU female 43 year old Date CM/SW last Face to Face completed with patient/family: Funding source: Payor: MEDICAID PENDING / Plan: MEDICAID PENDING / Product Type: Pending / Insurance DC planner internship: spouseAc at [phone] [facility] Patient/Family/MPOA/Caregiver Engaged with Transitional Care Plan: yes Patient/Family/MPOA/Caregiver concurs with proposed discharge plan: yes Name, Relationship to Patient and contact number of individual acting on behalf of the patient: spouse, Ac Garcia at [phone] Chief Complaint/Admitting Dx:RESP FAILURE Hospital Problems: Acute on chronic respiratory failure with hypercapnia Hypercapnic respiratory failure Cholecystitis Summary of hospital course: Vinnie Aguilera is a 43 year old female withOSA, severe pHTN,PFTs w/restrictive pattern (2013),chronic hypoxic RF (on 3-4L O2 intermittently),Pickwickian syndrome, HTN, CHFpEF (TTE 09/23/19), chronicFe Deficiency Anemia, menorrhagia, tobacco use disorder, THC use disorder,and morbid obesitywho presents from the ER for management of acute on chronic hypercapnic and hypoxic RF. ABGs were significant for increasing acidosis which improved with intubation once on MICU floor. DVT ruled out on doppler, thus CT PE not obtained as well as intermediate wells score. Diuresing aggressively in the setting of acute on chronic HFpEF. Continuation of adjustment of vent settings while intubated.Fever of 100.6 36-48 hours after intubation (had vomiting after intubation). Patient was initially on Vanc + Merrem due to concern for aspiration PNA, which was then de-escalated to Unasyn. Infectious w orkup negative and procal WNL. CBT trial failed twice. As patient could not be weaned off vent despite aggressive diuresis and completion of abx, tracheostomy tube was placed by ENT on 10/03. Patient continued to spike fevers, sputum grew citrobacter koseri and ID was consulted. ID suspect fevers 2/2 hypersensitivity reaction likely to beta lactams. Abx discontinued and patient remained afebrile. GI consulted, suggest fever less likely related to biliary source given normal LFTs. HIDA negative for acute cholecystitis/biliary obstruction. Fevers have resolved. Patient weaned off pressors and on minimal sedation. Will continue daily SBT, today day 3 of 3-hour trach challenge. CM/SW Interventions/Resources provided: ULISSES, Initial DC planning. Per spouse She reported patient resides in the home with spouse, cousin, mother and brother. 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 Pt received a paycheck in the month of September. Pt uses o2 concentrator with baseline of 3-4 liters. Prior toadmission patient was independent. Pt does not have a PCP and uses local ER for medical care. Per spouse, patient only takes a diuretic which is affordable. Spouse requested SW to call back a later time as she was heading into work.Referred to P and Patient matters. [facility] resources were provided and rx coupon card. 09/26 - spouseAccker at [phone] confirms patient will have 24/7 when ready to discharge home 10/02 - discussed home discharge until SSDI/LTC/Medicaid funding could get approved, discussed followup with Patient matters to get funding application started 10/07 - Patient Matters pending weaning vent for patient to be able to sign for SSDI application(to see if patient would be eligible) as well as [facility] Indigent Application 10/13 - confirmed previous home oxygen set up was a purchase from [facility] CM/SW Interventions/Resources still needed: F/u when patient is weaned from vent to determine lyudmila needed for home Anticipated Discharge Destination: Home If DC to home, who will support patient: spouseAc at [phone] Anticipated DME needs: Pending progression of care Referrals sent: no If no, why/when will referral be sent:: pending progression of care Has patient been accepted: not applicable Revised plan if not accepted: What is the clinical care happening right now that must be done in the hospital and only the hospital: No insurance, so must complete trach/vent weaning before safe to discharge home Currently has only tolerated 3 out of 24 hours on trach collar CHEVY Astorga, RN Revenue Accountant [email or web address] O:[phone] F:[phone] Dwaine Bethea MD - 10/14/2019 11:09 AM CDTBrifarideh MICU Note Date: 10/14/2019 11:09 Code Status: CPR ICU day: Intubation Day: Tracheostomy on 10/03. Intubated 09/20. Vinnie Aguilera is a 43 year old female with PMH of morbid obesity who was admitted to the [facility] Acute on Chronic Hypercapnic Hypoxic Respiratory Failure 2/2 Untreated ETIENNE/OHS and Acute on Chronic HFpEF 12 Hour Events: - Weaned sedation - Tolerated trach trial for 3 hours yesterday, 2 hours this morning. Temp: [34.8 C (94.6 F)-38.3 C (100.9 F)] Heart Rate (monitor): [82-121] Pulse: [78-124] Resp: [9-27] BP: (99-134)/(56-84) MAP (mmHg): [68-96] Family Update: - Discussed condition with her significant other, reiterated Ms. Aguilera's need for significant assistance after discharge and importance of working with care management. Plan for the Next 12 Hours: - Respiratory Support: 2 Hour trach trial BID starting today. - PRVC: RR 16, VT 420, PEEP 7, FiO2 40%, saturating 98% - Pressors: none - Sedation: Precedex. D/c fentanyl, versed, Klonapin to facilitate SBT. - Abx: none; continue to monitor for fevers - GI: Started Jevity supplement Dwaine Holden MD Medical ICU Service PGY1, Dept of Anesthesiology be, Davonte T, PT - 10/14/2019 10:50 AM CDT10/14/2019 10:50 AM Physical therapy note: Physical therapy consult received and chart received however patient is intubated via trac collar and Precedex at this time. Per RN patient is not awake and not following commands at this time and requesting PT to hold at this time. Will follow up when medically appropriate for therapy services. Thank you. Davonte Nash PT, DPT Pager Number: [phone] Charlotte Burton OT - 10/14/2019 9:21 AM CDT10/14/2019 0921 OCCUPATIONAL THERAPY NOTE: Occupational therapy consult received and chart received however patient is intubated via trac collar and Precedex at this time. Per RN patient is not awake and not following commands at this time and requesting OT to hold at this time. Will follow up when medically appropriate for therapy services. Thank you. Halima Kim, OTR [phone] signed by Charlotte Kim OT at 10/14/2019 1:34 PM Precious Birch DO - 10/14/2019 2:51 AM CDT MICU Progress Note Date of Service: 10/14/2019 02:51 Reason for ICU admission: Acute on chronic hypercapnic hypoxic respiratory failure 06/16 ICU Day: 23 Intubation Day: 23 Code Status: Full Last 24 hour events (major events): - Tolerated ~ 3 hours of trach trial yesterday. Will try again this morning. - Patient had increased agitation last night. Subjective: Pt is intubated Ventilator Bundle: Sedation/Analgesia + RASS: Precedex, Fentanyl, Versed. RASS -2 Stress ulcer prophylaxis: H2 cynthia DVT prophylaxis: heparin Nutrition: Enteral Rate: 10-60 ml/hr. Lines (with dates): L arm PIV 10/09/19 L arm PIV 10/12/19 Gleason: purewick 10/12/19 Intake/Output: Intake/Output Summary (Last 24 hours) at 10/14/2019 0251 Last data filed at 10/14/2019 0000 Gross per 24 hour Intake 2854.55 ml Output 2300 ml Net 554.55 ml Physical Exam: Temp: [34.8 C (94.6 F)-37.6 C (99.7 F)] Heart Rate (monitor): [82-121] Pulse: [82-124] Resp: [8-34] BP: (99-142)/(56-92) MAP (mmHg): [68-106] Constitutional: Arousable. HEENT: Trach and NGT in place Resp: Coarse breath sounds. Good air movement. Cardio: RRR, No murmurs. GI: Severely obese. Non-distended. Soft. MSK: sacral sores as seen on media tab Ext: Difficult to quantify diffuse LE edema up to thighs b/l. Improved from before. Labs (pertinent only)/Imaging: Results for VINNIE AGUILERA ( ) as of 10/14/2019 03:01 Ref. Range 10/13/2019 12:58 PH ART Latest Ref Range: 7.35 - 7.45 7.42 PCO2 ART Latest Ref Range: 35 - 45 mmHg 47 (H) PO2 ART Latest Ref Range: 80 - 100 mmHg 96 HCO3 ART Latest Ref Range: 22 - 26 mEq/L 30 (H) ARTERIAL BE Latest Ref Range: -3.0 - 3.0 mEq/L 4.6 (H) Assessment/Plan: Vinnie Aguilera is a 43 year old female admitted with Acute on Chronic hypercapnic hypoxic respiratory failure 2/2 acute HFpEF exacerbation and untreated ETIENNE/OHS. Neuro Toxic Metabolic Encephalopathy 2/2 Profound Hypercapnia THC Use Disorder Patient obtunded upon arrival to MICU 2/2 Mikey >160 and was intubated. Originally required increased sedation for agitation, now on minimal sedation. Her mentation is improving slowly day by day. - Continue to wean sedation as tolerated. - fentanyl/versed pushes for overt agitiation - avoid antipsychotics as patient does have prolonged QTc Resp Acute on Chronic Hypercapnic Hypoxic Respiratory Failure 2/2 Acute HFpEF Exacerbation and Untreated ETIENNE/OHS s/p tracheostomy (10/03) - on 3-4L O2 at home Severe Pulmonary HTN Pickwickian Syndrome Morbid Obesity PFTs w/ Restrictive Pattern, not COPD (2013) Tobacco Use Disorder Pt completed abx course for aspiration PNA. Her Vent requirements have fluctuated but overall improved with PEEP of 7 and FiO2 50 currently saturating 92-99%. Was unable to be weaned off and had tracheostomy done by ENT on 10/03. Has been undergoing SBT for past 2 days successfully for 3 hours and planto do it again today. - Continue to wean sedation and cent as tolerated - Suction Q4H and PRN - C/W Hypersal TID - c/w Duonebs Q6h Cardiovascular Acute on Chronic Diastolic HF HTN | HLD Prolonged QTc 3+ pitting edema up to mid-thighs on presentation. TTE 09/23/19 EF 55-60%, RVSP significantly elevated and RV moderately dilated. Did not comment on diastolic function, study was technically difficult. MAPs >60 off pressors. Has net negative of 16L and lost ~50 lbs since admission. - Bumex IV 2 mg Q12 H - Strict I/O - BMP QD and Mg daily; keep K>4, Mg>2 - avoid QTc prolonging agents - c/w ASA daily GI Elevated AST Hepatic steatosis Constipation - resolved RUQ U/S demonstrating possible dilation of CBD. GI consulted; suggest fevers are less likely from biliary source given normal LFTs, limit PPI use as known association with drug fever, and HIDA scan forfurther evaluation or repeat CTAP if still concerned for biliary pathology. HIDA negative for acute c holecystitis/biliary obstruction. Do not suspect GI cause of infection at this time. - bowel regimen with miralax and senokot Renal Uncompensated Respiratory Acidosis - resolved JOSELUIS and Hypernatremia 2/2 Diuresis - Resolved Hypokalemia Cr now WNL. Na corrected appropriately. Hypokalemia 2/2 Loop diuretic use. Diuresing adequately, -1.1 L in last 24H with total output of 2.3L. - Replete electrolytes as needed - Monitor BMP - c/w Bumex stated above. ID Aspiration Pneumonia s/p Abx FUO Initially on vanc/freida and later de-escalated to unasyn, has completed course of abx on 10/01. CXR s/p trach with interval worsening of b/l opacities concerning for interstitial edema vs infection/aspiration. Sputum culture grew citrobacter koseri. ID consulted; suggest no active infection and fevers likely 2/2 drug reaction, recommend d/c unasyn and no further abx therapy. Patient remains afebrile for over 72H. - Monitor fevers - If patient has significant fever (>103F), repeat blood cx x2, UA/Ucx, sputum cx Endo Morbid Obesity Hirsutism Stable. Latest Hgb A1c 5.3. - SSI Q6H Dispo: TBD Prognosis: Guarded HOSPITAL COURSE: Vinnie Aguilera is a 43 year old female withOSA, severe pHTN,PFTs w/restrictive pattern (2013),chronic hypoxic RF (on 3-4L O2 intermittently),Pickwickian syndrome, HTN, CHFpEF (TTE 09/23/19), chronicFe Deficiency Anemia, menorrhagia, tobacco use disorder, THC use disorder,and morbid obesitywho presents from the ER for management of acute on chronic hypercapnic and hypoxic RF. ABGs were significant for increasing acidosis which improved with intubation once on MICU floor. DVT ruled out on doppler, thus CT PE not obtained as well as intermediate wells score. Diuresing aggressively in the setting of acute on chronic HFpEF. Continuation of adjustment of vent settingswhile intubated. Fever of 100.6 36-48 hours after intubation (had vomiting after intubation). Patient was initially on Vanc + Merrem due to concern for aspiration PNA, which was then de-escalated to Unasyn. Infectious workup negative and procal WNL. CBT trial failed twice. As patient could not be weaned off vent despite aggressive diuresis and completion of abx, tracheostomy tube was placed by ENT on10/03. Patient continued to spike fevers, sputum grew citrobacter koseri and ID was consulted. ID suspect fevers 2/2 hypersensitivity reaction likely to beta lactams. Abx discontinued and patient remained afebrile. GI consulted, suggest fever less likely related to biliary source given normal LFTs. HIDA negative for acute cholecystitis/biliary obstruction. Fevers have resolved. Patient weaned off pressors and on minimal sedation. Will continue daily SBT, today day 3 of 3-hour trach challenge. Precious Paz DO Internal Medicine, PGY-1 [facility] Team Pager# [phone] Associated attestation - Valentin Jason MD - 10/14/2019 9:19 AM CDTI personally examined the patient on 10/14/[address] Paz's resident note as written. I actively participated in the decision-making process. Please see the resident's note for additional details. S/p trach remain on vent. Plan to do trach collar twice daily 2 hrs. Issues: Morbid obesity ETIENNE/OHS Tim Waters MD - 10/13/2019 6:56 AM CDTBrief MICU Note Date: 10/13/2019 06:57 Code Status: CPR ICU day: Intubation Day: Tracheostomy on 10/03 Vinnie Aguilera is a 43 year old female who was admitted to the MICU with Acute on Chronic Hypercapnic Hypoxic Respiratory Failure 2/2 Untreated ETIENNE/OHS and Acute on Chronic HFpEF 12 Hour Events (includes major events throughout the day, patient status, significant labs, radiology, consult updates): - Tolerated 3 hours of trach trial yesterday; will try again today - Increased agitation overnight Temp: [36.5 C (97.7 F)-37.9 C (100.2 F)] Heart Rate (monitor): [80-126] Pulse: [79-126] Resp: [0-27] BP: (110-152)/(61-119) MAP (mmHg): [75-124] Family Update: Called and update family Plan for the Next 12 Hours (includes anticipated events, complications to watch for, pending labs/radiology/consults): - PT/OT - Daily trach trial, avoid sedatives Tim Waters MD Internal Medicine, PGY-1 Pager#[phone] Fany Diaz MD - 10/13/2019 12:17 AM CDT MICU Progress Note Date of Service: 10/13/2019 04:33 Reason for ICU admission: Acute on Chronic Hypercapnic Hypoxic Respiratory Failure 2/2 Untreated ETIENNE/OHS and Acute on Chronic HFpEF ICU Day: Intubation Day: 22 Code Status: Full Last 24 hour events (major events): - Tolerated 3 hours of trach trial yesterday; will try again today - Increased agitation overnight Subjective: Trach in place. Arrousable. Denies pain. Ventilator Bundle: Respiratory Support: Vent FiO2 50 RR 16 PEEP 5 Sedation/Analgesia: precedex, fentanyl, versed Stress ulcer prophylaxis: famotidine DVT prophylaxis: lovenox Insulin drip: no Nutrition: pivot via NGT Lines (with dates): L arm PIV 10/09/19 L arm PIV 10/12/19 Gleason: purewick 10/12/19 Intake/Output: Intake/Output Summary (Last 24 hours) at 10/13/2019 0433 Last data filed at 10/13/2019 0000 Gross per 24 hour Intake 3734.5 ml Output 2900 ml Net 834.5 ml Physical Exam: Temp: [36.5 C (97.7 F)-37.9 C (100.2 F)] Heart Rate (monitor): [80-126] Pulse: [79-126] Resp: [0-27] BP: (110-152)/(61-119) MAP (mmHg): [75-124] Constitutional: arrousable HEENT: NCAT, trach and NGT in place Resp: course breath sounds Cardio: RRR, no murmurs GI: obese, soft, non-distended MSK: sacral sores as seen on media tab Extremities: trace edema, wrinkling of skin of BLE present Labs (pertinent only)/Imaging: Recent Labs 10/09/19 0400 10/10/193 10/11/19 0509 10/12/19 0508 10/13/19 0211 WBC 7.68 4.91 4.40 5.15 5.32 HGB 7.8* 7.3* 7.9* 7.3* 7.6* HCT 31.2* 29.7* 31.0* 29.4* 30.5* MCV 83.4 85.8 85.6 85.5 85.2 PLT 429* 334 351 319 317 Recent Labs 10/09/19 0400 10/10/19 0223 10/11/19 0509 10/12/19 0508 10/13/19 021 NA 145 145 147* 146* 145 K 3.3* 3.4* 4.0 3.5 3.6 CA 8.9 8.7 9.3 9.1 9.1 CL 106 108 110* 110* 109* BUN 40* 41* 40* 32* 24* CREAT 0.89 0.77 0.86 0.68 0.61 GLU 117* 112* 100 102 135* TCO2 31 29 29 30 31 MG 1.8 2.0 2.2 1.9 1.8 Assessment/Plan: Vinnie Aguilera is a 43 year old female admitted to the MICU with acute on chronic hypercapnic & hypoxic respiratory failure secondary to acute HFpEF exacerbation and untreated ETIENNE/OHS Neuro Toxic Metabolic Encephalopathy 2/2 Profound Hypercapnia THC Use Disorder Patient obtunded upon arrival to MICU 2/2 Mikey >160 and was intubated. Originally required increased sedation for agitation, now on minimal sedation. - wean sedation as tolerated - fentanyl/versed pushes for overt agitiation - avoid antipsychotics as patient does have prolonged QTc Respiratory Acute on Chronic Hypercapnic Hypoxic Respiratory Failure 2/2 Acute HFpEF Exacerbation and Untreated ETIENNE/OHS s/p tracheostomy (10/03) - on 3-4L O2 at home Severe Pulmonary HTN Pickwickian Syndrome Morbid Obesity PFTs w/ Restrictive Pattern, not COPD (2013) Tobacco Use Disorder Unable to wean off vent despite aggressive diuresis and completion of abx for aspiration PNA. CBT trial failed twice. Underwent tracheostomy by ENT on 10/03 as patient continued to require prolonged ventilatory support. - hold/decrease sedation for daily trach trials - wean vent as tolerated - suction Q4H and PRN - notify ENT if concerns with trach - c/w hypersal TID - c/w duonebs Q6H Cardiovascular Acute on Chronic Diastolic HF HTN | HLD Prolonged QTc TTE 09/23/19 EF 55-60%, RVSP significantly elevated and RV moderately dilated. Did not comment on diastolic function, study was technically difficult. MAPs >60 off pressors. - strict I/Os - BMP Q12H and Mg daily; keep K>4, Mg>2 - avoid QTc prolonging agents - c/w ASA daily - bumex IV 2 mg Q12H GI/Nutrition Elevated AST Hepatic steatosis Constipation - resolved RUQ U/S demonstrating possible dilation of CBD. GI consulted; suggest fevers are less likely from biliary source given normal LFTs, limit PPI use as known association with drug fever, and HIDA scan forfurther evaluation or repeat CTAP if still concerned for biliary pathology. HIDA negative for acute c holecystitis/biliary obstruction. - bowel regimen with miralax and senokot Renal/Electrolytes/Fluids Uncompensated Respiratory Acidosis - resolved JOSELUIS and Hypernatremia 2/2 Diuresis Hypokalemia Cr and Na improving. Previously on free water boluses to correct free water deficit, then diuretics reintroduced. - Replete electrolytes as needed - Monitor BMP - c/w bumex ID Aspiration Pneumonia s/p Abx FUO Initially on vanc/freida and later de-escalated to unasyn, has completed course of abx on 10/01. CXR s/p trach with interval worsening of b/l opacities concerning for interstitial edema vs infection/aspiration. Sputum culture grew citrobacter koseri. ID consulted; suggest no active infection and fevers likely 2/2 drug reaction, recommend d/c unasyn and no further abx therapy. Patient remains afebrile. - Monitor fevers - If patient has significant fever (>103F), repeat blood cx x2, UA/Ucx, sputum cx Hematology Elevated D-Dimer Iron Deficiency Anemia Menorrhagia S/p iron infusion and 1 u pRBCs. Hgb remaining stable. - CBC daily, transfuse to maintain Hgb >7 - start PO iron supplementation once more euvolemic Endo Morbid Obesity Hirsutism Stable. Latest Hgb A1c 5.3. - SSI Q6H Dispo: MICU Prognosis: Guarded Code Status: FULL (discussed with Spouse Ac Garcia via phone [phone]) Fany Diaz MD Dept of [facility] COURSE: Vinnie Aguilera is a 43 year old female with ETIENNE, severe pHTN, PFTs w/restrictive pattern (2013), chronic hypoxic RF (on 3-4L O2 intermittently), Pickwickian syndrome, HTN, CHFpEF (TTE 09/23/19), chronic Fe Deficiency Anemia, menorrhagia, tobacco use disorder, THC use disorder, and morbid obesity who presents from the ER for management of acute on chronic hypercapnic and hypoxic RF. ABGs were significant for increasing acidosis which improved with intubation once on MICU floor. DVT ruled out on doppler, thus CT PE not obtained as well as intermediate wells score. Diuresing aggressively in the setting of acute on chronic HFpEF. Continuation of adjustment of vent settings while intubated. Fever of 100.6 36-48 hours after intubation (had vomiting after intubation). Patient was initially on Vanc + Merrem due to concern for aspiration PNA, which was then de-escalated to Unasyn. Infectious workup negative and procal WNL. CBT trial failed twice. As patient could not be weaned off vent despite aggressive diuresis and completion of abx, tracheostomy tube was placed by ENT on 10/03. Patient continuedto spike fevers, sputum grew citrobacter koseri and ID was consulted. ID suspect fevers 2/2 hypersensitivity reaction likely to beta lactams. Abx discontinued and patient remained afebrile. GI consulted, suggest fever less likely related to biliary source given normal LFTs. HIDA negative for acute cholecystitis/biliary obstruction. Patient weaned off pressors and on minimal sedation. Will attempt daily breathing/trach trials. Associated attestation - Mustapha Carpenter MD - 10/13/2019 8:18 AM CDTI personally examined the patient on 10/13/[address] Diaz's resident note as written . I actively participated in the decision-making process. Please see the resident's note for additional details. Estela Forde MD - 10/12/2019 1:31 PM CDTBrief MICU Note Date: 10/12/2019 ICU day: 21 day Intubation Day: 21 Code Status: CPR 12 Hour Events: - Was able to tolerate 3 hrs of trach trial this morning and was then put back on vent Plan for next 12 hours: - Daily trach trial - Avoid sedatives to keep patient awake for daily trach trials Estela Forde MD PGY-1 Internal Medicine [phone] Fany Toussaint MD - 10/12/2019 1:31 AM CDT MICU Progress Note Date of Service: 10/12/2019 04:29 Reason for ICU admission: Acute on Chronic Hypercapnic Hypoxic Respiratory Failure 2/2 Untreated ETIENNE/OHS and Acute on Chronic HFpEF ICU Day: 21 Intubation Day: 21 Code Status: Full Last 24 hour events (major events): - Tmax 38C 10/11/19 @ 1600 - Continue to wean sedation and vent settings - Awaiting SBT Subjective: Trach in place. Arrousable. Denies pain. Ventilator Bundle: Respiratory Support: Vent FiO2 50 RR 16 PEEP 5 Sedation/Analgesia: precedex, fentanyl, versed Stress ulcer prophylaxis: famotidine DVT prophylaxis: lovenox Insulin drip: no Nutrition: pivot via NGT Lines (with dates): L arm PIV 10/05/19 R arm PIV 10/05/19 L arm distal PIV 10/09/19 Gleason: 10/11/19 Intake/Output: Intake/Output Summary (Last 24 hours) at 10/12/2019 0429 Last data filed at 10/11/2019 2100 Gross per 24 hour Intake 921.4 ml Output 2250 ml Net -1328.6 ml Physical Exam: Temp: [36.8 C (98.2 F)-38 C (100.4 F)] Heart Rate (monitor): [69-114] Pulse: [69-130] Resp: [14-36] BP: (97-131)/(57-85) MAP (mmHg): [70-97] Constitutional: arrousable HEENT: NCAT, trach in place Resp: course breath sounds Cardio: RRR, no murmurs GI: obese, soft, non-distended MSK: sacral sores as seen on media tab Extremities: trace edema, wrinkling of skin of BLE present Labs (pertinent only)/Imaging: Recent Labs 10/07/19 0507 10/08/19 0507 10/09/19 0400 10/10/19 0223 10/11/19 0509 WBC 6.83 6.03 7.68 4.91 4.40 HGB 7.2* 7.4* 7.8* 7.3* 7.9* HCT 29.1* 29.5* 31.2* 29.7* 31.0* MCV 82.7 84.0 83.4 85.8 85.6 PLT 566* 500* 429* 334 351 Recent Labs 10/07/19 0507 10/08/19 0507 10/09/19 0400 10/10/19 0223 10/11/19 0509 NA 144 146* 145 145 147* K 3.8 3.5 3.3* 3.4* 4.0 CA 8.8 8.9 8.9 8.7 9.3 CL 105 105 106 108 110* BUN 36* 34* 40* 41* 40* CREAT 0.85 0.83 0.89 0.77 0.86 GLU 111* 105 117* 112* 100 TCO2 34* 34* 31 29 29 MG 2.2 1.9 1.8 2.0 2.2 Assessment/Plan: Vinnie Aguilera is a 43 year old female admitted to the MICU with acute on chronic hypercapnic & hypoxic respiratory failure secondary to acute HFpEF exacerbation and untreated ETIENNE/OHS Neuro Toxic Metabolic Encephalopathy 2/2 Profound Hypercapnia THC Use Disorder Patient obtunded upon arrival to MICU 2/2 Mikey >160 and was intubated. Originally required increased sedation for agitation, now on minimal sedation. - wean sedation as tolerated - fentanyl/versed pushes for overt agitiation - avoid antipsychotics as patient does have prolonged QTc Respiratory Acute on Chronic Hypercapnic Hypoxic Respiratory Failure 2/2 Acute HFpEF Exacerbation and Untreated ETIENNE/OHS s/p tracheostomy (10/03) - on 3-4L O2 at home Severe Pulmonary HTN Pickwickian Syndrome Morbid Obesity PFTs w/ Restrictive Pattern, not COPD (2013) Tobacco Use Disorder Unable to wean off vent despite aggressive diuresis and completion of abx for aspiration PNA. CBT trial failed twice. Underwent tracheostomy by ENT on 10/03 as patient continued to require prolonged ventilatory support. - hold/decrease sedation for daily breathing/trach trials - wean vent as tolerated - suction Q4H and PRN - notify ENT if concerns with trach - c/w hypersal TID - c/w duonebs Q6H Cardiovascular Acute on Chronic Diastolic HF HTN | HLD Prolonged QTc TTE 09/23/19 EF 55-60%, RVSP significantly elevated and RV moderately dilated. Did not comment on diastolic function, study was technically difficult. MAPs >60 off pressors. - strict I/Os - BMP Q12H and Mg daily; keep K>4, Mg>2 - avoid QTc prolonging agents - c/w ASA daily - bumex IV 2 mg Q12H GI/Nutrition Elevated AST Hepatic steatosis Constipation - resolved RUQ U/S demonstrating possible dilation of CBD. GI consulted; suggest fevers are less likely from biliary source given normal LFTs, limit PPI use as known association with drug fever, and HIDA scan forfurther evaluation or repeat CTAP if still concerned for biliary pathology. HIDA negative for acute c holecystitis/biliary obstruction. - bowel regimen with miralax and senokot Renal/Electrolytes/Fluids Uncompensated Respiratory Acidosis - resolved JOSELUIS and Hypernatremia 2/2 Diuresis Hypokalemia Cr and Na improving. Previously on free water boluses to correct free water deficit, then diuretics reintroduced. - Replete electrolytes as needed - Monitor BMP - c/w bumex ID Aspiration Pneumonia s/p Abx FUO Initially on vanc/freida and later de-escalated to unasyn, has completed course of abx on 10/01. CXR s/p trach with interval worsening of b/l opacities concerning for interstitial edema vs infection/aspiration. Sputum culture grew citrobacter koseri. ID consulted; suggest no active infection and fevers likely 2/2 drug reaction, recommend d/c unasyn and no further abx therapy. Patient remains afebrile. - Monitor fevers - If patient has significant fever (>103F), repeat blood cx x2, UA/Ucx, sputum cx Hematology Elevated D-Dimer Iron Deficiency Anemia Menorrhagia S/p iron infusion and 1 u pRBCs. Hgb remaining stable. - CBC daily, transfuse to maintain Hgb >7 - start PO iron supplementation once more euvolemic Endo Morbid Obesity Hirsutism Stable. Latest Hgb A1c 5.3. - SSI Q6H Dispo: MICU Prognosis: Guarded Code Status: FULL (discussed with Spouse Ac Garcia via phone [phone]) Fany Diaz MD Dept of [facility] COURSE: Vinnie Aguilera is a 43 year old female with ETIENNE, severe pHTN, PFTs w/restrictive pattern (2013), chronic hypoxic RF (on 3-4L O2 intermittently), Pickwickian syndrome, HTN, CHFpEF (TTE 09/23/19), chronic Fe Deficiency Anemia, menorrhagia, tobacco use disorder, THC use disorder, and morbid obesity who presents from the ER for management of acute on chronic hypercapnic and hypoxic RF. ABGs were significant for increasing acidosis which improved with intubation once on MICU floor. DVT ruled out on doppler, thus CT PE not obtained as well as intermediate wells score. Diuresing aggressively in the setting of acute on chronic HFpEF. Continuation of adjustment of vent settings while intubated. Fever of 100.6 36-48 hours after intubation (had vomiting after intubation). Patient was initially on Vanc + Merrem due to concern for aspiration PNA, which was then de-escalated to Unasyn. Infectious workup negative and procal WNL. CBT trial failed twice. As patient could not be weaned off vent despite aggressive diuresis and completion of abx, tracheostomy tube was placed by ENT on 10/03. Patient continuedto spike fevers, sputum grew citrobacter koseri and ID was consulted. ID suspect fevers 2/2 hypersensitivity reaction likely to beta lactams. Abx discontinued and patient remained afebrile. GI consulted, suggest fever less likely related to biliary source given normal LFTs. HIDA negative for acute cholecystitis/biliary obstruction. Patient weaned off pressors and on minimal sedation. Will attempt daily breathing/trach trials. Associated attestation - Mustapha Carpenter MD - 10/12/2019 8:45 AM CDTI personally examined the patient on 10/12/[address] Diaz's resident note as written . I actively participated in the decision-making process. Please see the resident's note for additional details. Estela Forde MD - 10/11/2019 3:21 PM CDTBrief MICU Note Date: 10/11/2019 ICU day: 20 day Intubation Day: Code Status: CPR 12 Hour Events: - Arrousable - On minimal sedation - PEEP decreased to 5 - Trickle feed initiated Plan for next 12 hours: - Holding sedation early childhood assistant or decreasing it significantly with the goal of daily breathing trials. If she passes them then we can proceed with daily trach trial. - Can give Fentanyl and Versed pushes if patient becomes overtly agitated Estela Forde MD PGY-1 Internal Medicine [phone] Fany Toussaint MD - 10/11/2019 12:09 AM CDT MICU Progress Note Date of Service: 10/11/2019 05:41 Reason for ICU admission: Acute on Chronic Hypercapnic Hypoxic Respiratory Failure 2/2 Untreated ETIENNE/OHS and Acute on Chronic HFpEF ICU Day: 20 Intubation Day: 20 Code Status: Full Last 24 hour events (major events): - remains afebrile - HIDA scan performed; negative for acute cholecystitis/biliary obstruction - propofol successfully weaned, continue to wean versed and fentanyl Subjective: Trach in place and sedated. Ventilator Bundle: Respiratory Support: Vent FiO2 50 CPAP 5 RR 16 PEEP/CPAP 8 Sedation/Analgesia: precedex, fentanyl, versed Stress ulcer prophylaxis: famotidine DVT prophylaxis: lovenox Insulin drip: no Nutrition: pivot via NGT Lines (with dates): L arm PIV 10/05/19 R arm PIV 10/05/19 L arm distal PIV 10/09/19 Gleason: 10/11/19 Intake/Output: Intake/Output Summary (Last 24 hours) at 10/11/2019 0541 Last data filed at 10/11/2019 0512 Gross per 24 hour Intake 1919.55 ml Output 900 ml Net 1019.55 ml Physical Exam: Temp: [35.3 C (95.5 F)-37.8 C (100 F)] Heart Rate (monitor): [63-79] Pulse: [62-123] Resp: [10-24] BP: (96-121)/(54-88) MAP (mmHg): [66-81] Constitutional: sedated HEENT: NCAT, trach in place Resp: course breath sounds Cardio: RRR, no murmurs GI: obese, soft, non-distended MSK: sacral sores as seen on media tab Extremities: trace edema, wrinkling of skin of BLE present Labs (pertinent only)/Imaging: Recent Labs 10/06/19 0349 10/07/19 0507 10/08/19 0507 10/09/19 0400 10/10/193 WBC 7.67 6.83 6.03 7.68 4.91 HGB 7.2* 7.2* 7.4* 7.8* 7.3* HCT 29.8* 29.1* 29.5* 31.2* 29.7* MCV 83.2 82.7 84.0 83.4 85.8 PLT 606* 566* 500* 429* 334 Recent Labs 10/05/19 0240 10/06/19 0349 10/07/19 0507 10/08/19 0507 10/09/190 10/10/19222 NA 146* -- 144 146* 145 145 K 3.8 -- 3.8 3.5 3.3* 3.4* CA 9.0 -- 8.8 8.9 8.9 8.7 CL 102 -- 105 105 106 108 BUN 52* -- 36* 34* 40* 41* CREAT 1.52* -- 0.85 0.83 0.89 0.77 GLU 100 -- 111* 105 117* 112* TCO2 36* -- 34* 34* 31 29 MG 2.4 2.5* 2.2 1.9 1.8 2.0 Assessment/Plan: Vinnie Aguilera is a 43 year old female admitted to the MICU with acute on chronic hypercapnic & hypoxic respiratory failure secondary to acute HFpEF exacerbation and untreated ETIENNE/OHS Neuro Toxic Metabolic Encephalopathy 2/2 Profound Hypercapnia THC Use Disorder Patient obtunded upon arrival to MICU 2/2 Mikey >160 and was intubated. Has required increased sedation for agitation. - Sedation/Analgesia: precedex, fentanyl, versed - wean sedation as tolerated - avoid antipsychotics as patient does have prolonged QTc Respiratory Acute on Chronic Hypercapnic Hypoxic Respiratory Failure 2/2 Acute HFpEF Exacerbation and Untreated ETIENNE/OHS s/p tracheostomy (10/03) - on 3-4L O2 at home Severe Pulmonary HTN Pickwickian Syndrome Morbid Obesity PFTs w/ Restrictive Pattern, not COPD (2013) Tobacco Use Disorder Unable to wean off vent despite aggressive diuresis and completion of abx for aspiration PNA. CBT trial failed twice. Underwent tracheostomy by ENT on 5/22 as patient continued to require prolonged ventilatory support. - wean vent as tolerated - suction Q4H and PRN - notify ENT if concerns with trach - c/w hypersal TID - c/w duonebs Q6H Cardiovascular Acute on Chronic Diastolic HF HTN | HLD Prolonged QTc TTE 09/23/19 EF 55-60%, RVSP significantly elevated and RV moderately dilated. Did not comment on diastolic function, study was technically difficult. MAPs >60 off pressors. - strict I/Os - BMP Q12H and Mg daily; keep K>4, Mg>2 - avoid QTc prolonging agents - c/w ASA daily - bumex IV 2 mg Q12H GI/Nutrition Elevated AST Hepatic steatosis Constipation - resolved RUQ U/S demonstrating possible dilation of CBD. GI consulted; suggest fevers are less likely from biliary source given normal LFTs, limit PPI use as known association with drug fever, and HIDA scan forfurther evaluation or repeat CTAP if still concerned for biliary pathology. HIDA negative for acute c holecystitis/biliary obstruction. - bowel regimen with miralax and senokot Renal/Electrolytes/Fluids Uncompensated Respiratory Acidosis - resolved JOSELUIS and Hypernatremia 2/2 Diuresis Hypokalemia Cr and Na improving. Previously on free water boluses to correct free water deficit, then diuretics reintroduced. - Replete electrolytes as needed - Monitor BMP - c/w bumex ID Aspiration Pneumonia s/p Abx FUO Initially on vanc/freida and later de-escalated to unasyn, has completed course of abx on 10/01. CXR s/p trach with interval worsening of b/l opacities concerning for interstitial edema vs infection/aspiration. Sputum culture grew citrobacter koseri. ID consulted; suggest no active infection and fevers likely 2/2 drug reaction, recommend d/c unasyn and no further abx therapy. Patient remains afebrile. - Monitor fevers - If patient has significant fever (>103F), repeat blood cx x2, UA/Ucx, sputum cx Hematology Elevated D-Dimer Iron Deficiency Anemia Menorrhagia S/p iron infusion and 1 u pRBCs. Hgb remaining stable. - CBC daily, transfuse to maintain Hgb >7 - start PO iron supplementation once more euvolemic Endo Morbid Obesity Hirsutism Stable. Latest Hgb A1c 5.3. - SSI Q6H Dispo: MICU Prognosis: Guarded Code Status: FULL (discussed with Spouse Ac Garcia via phone [phone]) Fany Diaz MD Dept of [facility] COURSE: Vinnie Aguilera is a 43 year old female with ETIENNE, severe pHTN, PFTs w/restrictive pattern (2013), chronic hypoxic RF (on 3-4L O2 intermittently), Pickwickian syndrome, HTN, CHFpEF (TTE 09/23/19), chronic Fe Deficiency Anemia, menorrhagia, tobacco use disorder, THC use disorder, and morbid obesity who presents from the ER for management of acute on chronic hypercapnic and hypoxic RF. ABGs were significant for increasing acidosis which improved with intubation once on MICU floor. DVT ruled out on doppler, thus CT PE not obtained as well as intermediate wells score. Diuresing aggressively in the setting of acute on chronic HFpEF. Continuation of adjustment of vent settings while intubated. Fever of 100.6 36-48 hours after intubation (had vomiting after intubation). Patient was initially on Vanc + Merrem due to concern for aspiration PNA, which was then de-escalated to Unasyn. Infectious workup negative and procal WNL. CBT trial failed twice. As patient could not be weaned off vent despite aggressive diuresis and completion of abx, tracheostomy tube was placed by ENT on 10/03. Patient continuedto spike fevers, sputum grew citrobacter koseri and ID was consulted. ID suspect fevers 2/2 hypersensitivity reaction likely to beta lactams. Abx discontinued and patient remained afebrile. GI consulted, suggest fever less likely related to biliary source given normal LFTs. HIDA negative for acute cholecystitis/biliary obstruction. Associated attestation - Mustapha Carpenter MD - 10/11/2019 9:08 AM CDTI personally examined the patient on 10/11/[address] Diaz's resident note as written . I actively participated in the decision-making process. Please see the resident's note for additional details. Estela Forde MD - 10/10/2019 3:01 PM CDTBrief MICU Note Date: 10/10/2019 ICU day: 19 day Intubation Day: 19 Code Status: CPR 12 Hour Events: - HIDA scan completed today - MAP > 60 - Could not decrease sedation requirement as HIDA scan was planned for the patient Plan for next 12 hours: - Wean off Versed and Fentanyl as tolerated, goal is for patient to be awake tomorrow morning duringrounds so her medical condition can be explained to her - Follow up HIDA scan result - If patient has profound febrile episode (>103 F), please collect Bcx, UA, Ucx, and sputum culture Estela Forde MD PGY-1 Internal Medicine [phone] EDUARDOTTats, Raul Morales MD - 10/10/2019 2:58 PM CDT INFECTIOUS DISEASES PROGRESS NOTE: Reason For Consult: Fever Subjective: - patient is s/p tracheostomy - afebrile - no Pressor requirement and non tachycardic - intubated and sedated Antibiotics: unasyn 10/04- 10/08 Objective: Vitals: 10/10/19 0800 10/10/19 1000 10/10/19 1108 10/10/19 1118 BP: 101/62 98/63 Pulse: 64 62 63 71 Resp: 19 16 11 12 Temp: 35.7 C (96.3 F) 36 C (96.8 F) TempSrc: Skin SpO2: 94% 97% 100% 99% Weight: General: morbidly obese female, s/p tracheostomy, ENT: tach site without active drainage, intermittent secretions noted Lungs: symmetric bs bilaterally, crackles + Cardio: non tachycardic, heart sound distant GI: ND bs present distant present, soft, Extremities: no edema Skin: no lesions or rash under pannus Neuro: intubated and sedated Labs: WBC x10^3 Date/Time Value Ref Range Status 03/11/2014 12:01 AM 3.7 (L) 4.3 - 11.1 /uL Final WBC Date/Time Value Ref Range Status 10/10/2019 02:23 AM 4.91 4.30 - 11.10 10*3/L Final THB ART Date/Time Value Ref Range Status 02/23/2014 01:15 AM 11.7 (L) 13.5 - 18.0 G/DL Final HGB Date/Time Value Ref Range Status 10/10/2019 02:23 AM 7.3 (L) 11.6 - 15.0 g/dL Final 03/11/2014 12:01 AM 10.2 (L) 11.6 - 15.0 G/DL Final PLT x10^3 Date/Time Value Ref Range Status 03/11/2014 12:01 AM 299 166 - 358 /uL Final PLT Date/Time Value Ref Range Status 10/10/2019 02:23 AM 334 166 - 358 10*3/L Final CREATININE Date/Time Value Ref Range Status 10/10/2019 02:23 AM 0.77 0.50 - 1.04 mg/dL Final 03/19/2014 04:25 PM 1.25 (H) 0.50 - 1.04 MG/DL Final GLUCOSE Date/Time Value Ref Range Status 10/10/2019 02:23 AM 112 (H) 70 - 110 mg/dL Final 03/19/2014 04:25 PM 88 70 - 110 MG/DL Final ALT(SGPT) Date/Time Value Ref Range Status 10/04/2018 04:52 PM 18 9 - 51 U/L Final 02/18/2014 04:21 PM 24 9 - 51 U/L Final ALTv Date/Time Value Ref Range Status 10/10/2019 02:23 AM 14 5 - 35 U/L Final AST(SGOT) Date/Time Value Ref Range Status 10/10/2019 02:23 AM 43 (H) 13 - 40 U/L Final 02/18/2014 04:21 PM 45 (H) 13 - 40 U/L Final Comment: Performed at [facility] [address] [place] [id number] Toll Free: [phone] CLIA No. [id number] ALK PHOS Date/Time Value Ref Range Status 10/10/2019 02:23 AM 51 34 - 122 U/L Final 02/18/2014 04:21 PM 87 34 - 122 U/L Final Microbiology: 10/05/2019 bcx ngtd ua and urine culture ngtd Trach culture citrobacter michel sensitive Radiology: 10/07/2019 CXR IMPRESSION Moderate pulmonary edema with small bilateral pleural effusions. Given the patient's history of fever, an underlying infectious process is not excluded. Assessment: 43 year old female with #fever- improved #relative eosinophilia #morbid obesity #acute on chronic respiratory failure - s/p trach 10/03 #citrobacter costive trach culture Patient has had plateaued fever curve since tracheostomy insertion 10/03 to 102 while on unasyn. Thecitrobacter from trach culture was sensitive to uansyn, unclear significance. Her infectious work up including blood culture and ua/ucx at time of fever were negative. She has had intermittent low grade eosinophilia while on abx. It s not likely that the citrobacter was causing intrapulmonary infection and fever at this time. Exam and chart review did not reveal indwelling source. Would suggest to stop unasyn and eliminate non essential meds continue to monitor fever curve. Other Hospital Problems: # hydropic gallbladder #diastolic dysfunction #severe pulmonary hypertension Recommendations: - doing well off antibiotics (afebrile; no eosinophilia) - if patient exhibit significant fever, please repeat blood cultures x2, CXR and UA and urine culture - Aggressive pulmonary toileting - Diuresis per primary team - ID will sign off The above patient was discussed with ID faculty. Case dicussed with Dr. Wolfe. Raul Cadet MD Internal Medicine, PGY3 Associated attestation - Chanel Wolfe MD - 10/12/2019 3:27 PM CDTI personally saw and evaluated the patient on this day and agree with the findings as documented by the housekeeping associate. We discussed the assessments and management plan and I agree with the housekeeping associate's documentation as written . Fany Diaz MD - 10/10/2019 2:52 AM CDT MICU Progress Note Date of Service: 10/10/2019 02:52 Reason for ICU admission: Acute on Chronic Hypercapnic Hypoxic Respiratory Failure 2/2 Untreated ETIENNE/OHS and Acute on Chronic HFpEF ICU Day: 18 Intubation Day: 18 Code Status: Full Last 24 hour events (major events): - afebrile overnight - antibiotics d/c'd per ID recs - propofol successfully weaned, unable to wean versed and fentanyl Subjective: Trach in place and sedated. Ventilator Bundle: Sedation/Analgesia + RASS: precedex Stress ulcer prophylaxis: famotidine DVT prophylaxis: lovenox Insulin drip: no Nutrition: pivot Lines (with dates): A-line right radial 09/21/19 Midline 10/01/19 NG tube 09/21/19 Intake/Output: Intake/Output Summary (Last 24 hours) at 10/10/2019251 Last data filed at 10/09/20191999 Gross per 24 hour Intake 1954.65 ml Output Net 1954.65 ml Physical Exam: Temp: [35.7 C (96.3 F)-38.1 C (100.6 F)] Heart Rate (monitor): [65-117] Pulse: [63-113] Resp: [9-26] BP: (93-118)/(44-87) MAP (mmHg): [59-98] Constitutional: sedated HEENT: NCAT, trach in place Resp: course breath sounds Cardio: RRR, no murmurs GI: obese, soft, non-distended MSK: sacral sores as seen on media tab Extremities: trace edema, wrinkling of skin of BLE present Labs (pertinent only)/Imaging: Recent Labs 10/04/19 0642 10/06/19 0349 10/07/19 0507 10/08/19 0507 10/09/19 0400 WBC 8.96 7.67 6.83 6.03 7.68 HGB 7.5* 7.2* 7.2* 7.4* 7.8* HCT 31.5* 29.8* 29.1* 29.5* 31.2* MCV 83.6 83.2 82.7 84.0 83.4 PLT 644* 606* 566* 500* 429* Recent Labs 10/04/19 0630 10/05/19 0240 10/06/19 0349 10/07/19 0507 10/08/19 0507 10/09/19 0400 NA 146* 146* -- 144 146* 145 K 4.4 3.8 -- 3.8 3.5 3.3* CA 9.0 9.0 -- 8.8 8.9 8.9 CL 102 102 -- 105 105 106 BUN 46* 52* -- 36* 34* 40* CREAT 1.27* 1.52* -- 0.85 0.83 0.89 GLU 101 100 -- 111* 105 117* TCO2 37* 36* -- 34* 34* 31 MG 2.5* 2.4 2.5* 2.2 1.9 1.8 Assessment/Plan: Vinnie Aguilera is a 43 year old female admitted to the MICU with acute on chronic hypercapnic & hypoxic respiratory failure secondary to acute HFpEF exacerbation and untreated ETIENNE/OHS Neuro Toxic Metabolic Encephalopathy 2/2 Profound Hypercapnia THC Use Disorder Patient obtunded upon arrival to MICU 2/2 Mikey >160 and was intubated. Has required increased sedation for agitation. - Sedation/Analgesia: propofol, precedex, fentanyl Respiratory Acute on Chronic Hypercapnic Hypoxic Respiratory Failure 2/2 Acute HFpEF Exacerbation and Untreated ETIENNE/OHS s/p tracheostomy (10/03) - on 3-4L O2 at home Severe Pulmonary HTN Pickwickian Syndrome Morbid Obesity PFTs w/ Restrictive Pattern, not COPD (2013) Tobacco Use Disorder Unable to wean off vent despite aggressive diuresis and completion of abx for aspiration PNA. Underwent tracheostomy by ENT on 10/03 as patient continued to require prolonged ventilatory support. - suction Q4H and PRN - notify ENT if concerns with trach - c/w hypersal TID - c/w duonebs Q6H Cardiovascular Acute on Chronic Diastolic HF HTN | HLD Prolonged QTc TTE 09/23/19 EF 55-60%, RVSP significantly elevated and RV moderately dilated. Did not comment on diastolic function, study was technically difficult. - strict I/Os - BMP Q12H and Mg daily; keep K>4, Mg>2 - avoid QTc prolonging agents - c/w ASA daily - bumex IV 2 mg Q12H GI/Nutrition Elevated AST Hepatic steatosis Constipation - resolved RUQ U/S demonstrating possible dilation of CBD and ordered HIDA. GI consulted; suggest fevers are less likely from biliary source given normal LFTs, limit PPI use as known association with drug fever, and HIDA scan for further evaluation or repeat CTAP if still concerned for biliary pathology. HIDA initially unable to be performed as patient could not tolerate laying flat. - Reattempt HIDA scan as patient is now able to lay flat for 2 hours - Consider CTAP if unable to perform HIDA - bowel regimen with miralax and senokot Renal/Electrolytes/Fluids Uncompensated Respiratory Acidosis - resolved JOSELUIS and Hypernatremia 2/2 Diuresis Hypokalemia Cr and Na improving. Previously on free water boluses to correct free water deficit, then diuretics reintroduced. - Replete electrolytes as needed - 300 cc free water boluses Q3H - Monitor BMP - Bumex reintroduced ID Aspiration Pneumonia s/p Abx FUO Initially on vanc/freida and later de-escalated to unasyn, has completed course of abx on 10/01. Patient continuing to spike fevers, CXR s/p trach with interval worsening of b/l opacities concerning for interstitial edema vs infection/aspiration. Sputum culture grew citrobacter koseri. ID consulted; suggest no active infection and fevers likely 2/2 drug reaction, recommend d/c unasyn and no further abx therapy. Afebrile overnight - Monitor fevers - Per ID recs: if patient exhibit significant fever, please repeat blood cultures x2, CXR and UA andurine culture Hematology Elevated D-Dimer Iron Deficiency Anemia Menorrhagia S/p iron infusion and 1 u pRBCs. Hgb remaining stable. - CBC daily, transfuse to maintain Hgb >7 - start PO iron supplementation once more euvolemic Endo Morbid Obesity Hirsutism Stable. Latest Hgb A1c 5.3. - SSI Q6H Dispo: MICU Prognosis: Guarded Code Status: FULL (discussed with Spouse Ac Garcia via phone [phone]) Fany Diaz MD Dept of [facility] COURSE: Vinnie Aguilera is a 43 year old female with ETIENNE, severe pHTN, PFTs w/restrictive pattern (2013), chronic hypoxic RF (on 3-4L O2 intermittently), Pickwickian syndrome, HTN, CHFpEF (TTE 09/23/19), chronic Fe Deficiency Anemia, menorrhagia, tobacco use disorder, THC use disorder, and morbid obesity who presents from the ER for management of acute on chronic hypercapnic and hypoxic RF. ABGs were significant for increasing acidosis which improved with intubation once on MICU floor. DVT ruled out on doppler, thus CT PE not obtained as well as intermediate wells score. Diuresing aggressively in the setting of acute on chronic HFpEF. Continuation of adjustment of vent settings while intubated. Fever of 100.6 36-48 hours after intubation (had vomiting after intubation). Patient was initially on Vanc + Merrem due to concern for aspiration PNA, which was then de-escalated to Unasyn. Infectious workup negative and procal WNL. CBT trial failed twice. As patient could not be weaned off vent despite aggressive diuresis and completion of abx, tracheostomy tube was placed by ENT on 10/03. Patient continuedto spike fevers, sputum grew citrobacter koseri and ID was consulted. ID suspect hypersensitivity reaction likely to beta lactams. GI consulted, suggest fever less likely related to biliary source given normal LFTs, recommend HIDA scan for further eval or contrast CTAP if still concerned for biliary source. Associated attestation - Mustapha Carpenter MD - 10/10/2019 9:03 AM CDTI personally examined the patient on 10/10/[address] Diaz's resident note as written . I actively participated in the decision-making process. Please see the resident's note for additional details. Sai Reddy MD - 10/09/2019 8:30 PM CDT INFECTIOUS DISEASES PROGRESS NOTE: Reason For Consult: Fever Subjective: - patient is s/p tracheostomy - fever to 102.2 then improved with Tylenol, last dose of unasyn at 6 am. - no Pressor requirement and non tachycardic - Respiratory status stable, still requiring 8 of PEEP, Fio2 has improved from 50 to 40 Antibiotics: unasyn 10/04- 10/08 Objective: Vitals: 10/09/19 1402 10/09/19 1600 10/09/19 1800 10/09/191999 BP: 98/50 93/44 101/52 Pulse: 71 71 70 80 Resp: 18 9 9 11 Temp: 38.1 C (100.6 F) 37.1 C (98.8 F) TempSrc: Skin Skin SpO2: 94% 95% 94% 99% Weight: General: morbidly obese female, s/p tracheostomy, intermittently grimaced. ENT: tach site without active drainage, intermittent secretions noted Lungs: symmetric bs bilaterally, crackles + Cardio: non tachycardic, heart sound distant GI: ND bs present distant present, soft, grimaced when checking pannus Extremities: edema in bilateral thighs Skin: no lesions or rash under pannus Neuro:sedated on precedex, intermittent grimace, but minimal spontaneous movements. Labs: WBC x10^3 Date/Time Value Ref Range Status 03/11/2014 12:01 AM 3.7 (L) 4.3 - 11.1 /uL Final WBC Date/Time Value Ref Range Status 10/09/2019 04:00 AM 7.68 4.30 - 11.10 10*3/L Final THB ART Date/Time Value Ref Range Status 02/23/2014 01:15 AM 11.7 (L) 13.5 - 18.0 G/DL Final HGB Date/Time Value Ref Range Status 10/09/2019 04:00 AM 7.8 (L) 11.6 - 15.0 g/dL Final 03/11/2014 12:01 AM 10.2 (L) 11.6 - 15.0 G/DL Final PLT x10^3 Date/Time Value Ref Range Status 03/11/2014 12:01 AM 299 166 - 358 /uL Final PLT Date/Time Value Ref Range Status 10/09/2019 04:00 AM 429 (H) 166 - 358 10*3/L Final CREATININE Date/Time Value Ref Range Status 10/09/2019 04:00 AM 0.89 0.50 - 1.04 mg/dL Final 03/19/2014 04:25 PM 1.25 (H) 0.50 - 1.04 MG/DL Final GLUCOSE Date/Time Value Ref Range Status 10/09/2019 04:00 AM 117 (H) 70 - 110 mg/dL Final 03/19/2014 04:25 PM 88 70 - 110 MG/DL Final ALT(SGPT) Date/Time Value Ref Range Status 10/04/2018 04:52 PM 18 9 - 51 U/L Final 02/18/2014 04:21 PM 24 9 - 51 U/L Final ALTv Date/Time Value Ref Range Status 10/09/2019 04:00 AM 16 5 - 35 U/L Final AST(SGOT) Date/Time Value Ref Range Status 10/09/2019 04:00 AM 49 (H) 13 - 40 U/L Final 02/18/2014 04:21 PM 45 (H) 13 - 40 U/L Final Comment: Performed at [facility] [address] [place] [id number] Toll Free: [phone] CLIA No. [id number] ALK PHOS Date/Time Value Ref Range Status 10/09/2019 04:00 AM 53 34 - 122 U/L Final 02/18/2014 04:21 PM 87 34 - 122 U/L Final Microbiology: 10/05/2019 bcx ngtd ua and urine culture ngtd Trach culture citrobacter michel sensitive Radiology: 10/07/2019 CXR IMPRESSION Moderate pulmonary edema with small bilateral pleural effusions. Given the patient's history of fever, an underlying infectious process is not excluded. Assessment: 43 year old female with #fever- improved #relative eosinophilia #morbid obesity #acute on chronic respiratory failure - s/p trach 10/03 #citrobacter costive trach culture Patient has had plateaued fever curve since tracheostomy insertion 10/03 to 102 while on unasyn. Thecitrobacter from trach culture was sensitive to uansyn, unclear significance. Her infectious work up including blood culture and ua/ucx at time of fever were negative. She has had intermittent low grade eosinophilia while on abx. It s not likely that the citrobacter was causing intrapulmonary infection and fever at this time. Exam and chart review did not reveal indwelling source. Would suggest to stop unasyn and eliminate non essential meds continue to monitor fever curve. Other Hospital Problems: # hydropic gallbladder #diastolic dysfunction #severe pulmonary hypertension Recommendations: - stop unasyn - if patient exhibit significant fever, please repeat blood cultures x2, CXR and UA and urine culture - Aggressive pulmonary toileting - Diuresis per primary team The above patient was discussed with ID faculty. Sai Reddy PGY5 Infectious Disease Fellow Contact info available in smartpage Associated attestation - Chanel Wolfe MD - 10/12/2019 3:25 PM CDTI personally saw and evaluated the patient on this day and agree with the findings as documented by the housekeeping associate. We discussed the assessments and management plan and I agree with the housekeeping associate's documentation as written . Estela Forde MD - 10/09/2019 5:16 PM CDTBrief MICU Note Date: 10/09/2019 ICU day: 18 day Intubation Day: 18 Code Status: CPR 12 Hour Events: - Unasyn stopped - Titrating vent setting as tolerated - Propofol has been stopped, have been unable to go down on Versed and Fentanyl Plan for next 12 hours: - Planning on HIDA scan tomorrow as patient is now able to lay flat for 2 hrs - Wean off Versed and Fentanyl as tolerated Estela Forde MD PGY-1 Internal Medicine [phone] errick Kirkpatrick PT - 10/09/2019 2:22 PM CDTPT Note: Pt s/p tracheostomy on 10/04/19 and remains intubated, sedated and not following commands. PT will sign-off at this time. Please consider re-consulting when medically appropriate and able to actively participate[place] [id number] Dept [address] [address] Fany Toussaint MD - 10/09/2019 5:10 AM CDT MICU Progress Note Date of Service: 10/09/2019 01:29 Reason for ICU admission: Acute on Chronic Hypercapnic Hypoxic Respiratory Failure 2/2 Untreated ETIENNE/OHS and Acute on Chronic HFpEF ICU Day: 17 Intubation Day: 17 Code Status: Full Last 24 hour events (major events): - continues to remain febrile - HIDA scan unable to be performed as patient cannot tolerate laying flat - sputum growing citrobacter koseri - ID consulted: fever and worsening eosinophilia suggestive of hypersensitivity reaction, likely beta lactams; rec d/c abx - attempting to wean propofol due to possible contribution to fevers - weaned PEEP from 10 - > 8 Subjective: Trach in place and sedated. Ventilator Bundle: Sedation/Analgesia + RASS: propofol, precedex Stress ulcer prophylaxis: famotidine DVT prophylaxis: lovenox Insulin drip: no Nutrition: pivot Lines (with dates): A-line right radial 09/21/19 Midline 10/01/19 NG tube 09/21/19 Intake/Output: Intake/Output Summary (Last 24 hours) at 10/08/20192011 Last data filed at 10/08/2019 1800 Gross per 24 hour Intake 2206.65 ml Output 1920 ml Net 286.65 ml Physical Exam: Temp: [38.2 C (100.8 F)-39 C (102.2 F)] Heart Rate (monitor): [68-80] Pulse: [68-79] Resp: [20-30] BP: (89-113)/(46-67) MAP (mmHg): [59-80] Constitutional: sedated HEENT: NCAT, trach in place Resp: course breath sounds Cardio: RRR, no murmurs GI: soft, non-distended MSK: unable to assess back for ulcers Extremities: trace edema, wrinkling of skin of BLE present Labs (pertinent only)/Imaging: Recent Labs 10/02/19 0355 10/04/19 0642 10/06/19 0349 10/07/19 0507 10/08/19 0507 WBC 9.16 8.96 7.67 6.83 6.03 HGB 7.2* 7.5* 7.2* 7.2* 7.4* HCT 31.4* 31.5* 29.8* 29.1* 29.5* MCV 81.8 83.6 83.2 82.7 84.0 PLT 415* 644* 606* 566* 500* Recent Labs 10/03/19 0307 10/04/19 0630 10/05/19 0240 10/06/19 0349 10/07/19 0507 10/08/19 0507 NA 148* 146* 146* -- 144 146* K 3.8 4.4 3.8 -- 3.8 3.5 CA 9.1 9.0 9.0 -- 8.8 8.9 CL 104 102 102 -- 105 105 BUN 41* 46* 52* -- 36* 34* CREAT 1.20* 1.27* 1.52* -- 0.85 0.83 GLU 92 101 100 -- 111* 105 TCO2 37* 37* 36* -- 34* 34* MG 2.6* 2.5* 2.4 2.5* 2.2 1.9 Assessment/Plan: Vinnie Aguilera is a 43 year old female admitted to the MICU with acute on chronic hypercapnic & hypoxic respiratory failure secondary to acute HFpEF exacerbation and untreated ETIENNE/OHS Neuro Toxic Metabolic Encephalopathy 2/2 Profound Hypercapnia THC Use Disorder Patient obtunded upon arrival to MICU 2/2 Mikey >160 and was intubated. Has required increased sedation for agitation. - Sedation/Analgesia: propofol, precedex Respiratory Acute on Chronic Hypercapnic Hypoxic Respiratory Failure 2/2 Acute HFpEF Exacerbation and Untreated ETIENNE/OHS s/p tracheostomy (10/03) - on 3-4L O2 at home Severe Pulmonary HTN Pickwickian Syndrome Morbid Obesity PFTs w/ Restrictive Pattern, not COPD (2013) Tobacco Use Disorder Unable to wean off vent despite aggressive diuresis and completion of abx for aspiration PNA. Underwent tracheostomy by ENT on 10/03 as patient continued to require prolonged ventilatory support. - suction Q4H and PRN - notify ENT if concerns with trach - c/w hypersal TID - c/w duonebs Q6H Cardiovascular Acute on Chronic Diastolic HF HTN | HLD Prolonged QTc TTE 09/23/19 EF 55-60%, RVSP significantly elevated and RV moderately dilated. Did not comment on diastolic function, study was technically difficult. - strict I/Os - BMP Q12H and Mg daily; keep K>4, Mg>2 - avoid QTc prolonging agents - c/w ASA daily - bumex IV 2 mg Q12H GI/Nutrition Elevated AST Hepatic steatosis Constipation - resolved RUQ U/S demonstrating possible dilation of CBD and ordered HIDA. GI consulted; suggest fevers are less likely from biliary source given normal LFTs, limit PPI use as known association with drug fever, and HIDA scan for further evaluation or repeat CTAP if still concerned for biliary pathology. HIDA unable to be performed as patient cannot tolerate laying flat. - Consider CTAP if unable to perform HIDA - bowel regimen with miralax and senokot - PPI switched to H2 cynthia Renal/Electrolytes/Fluids Uncompensated Respiratory Acidosis - resolved JOSELUIS and Hypernatremia 2/2 Diuresis Hypokalemia Cr and Na improving. Previously on free water boluses to correct free water deficit, then diuretics reintroduced. K low this AM. - K and Mg repleted IV - 300 cc free water boluses Q3H - Monitor BMP - Bumex reintroduced ID Aspiration Pneumonia s/p Abx FUO Initially on vanc/freida and later de-escalated to unasyn, has completed course of abx on 10/01. Patient continuing to spike fevers, CXR s/p trach with interval worsening of b/l opacities concerning for interstitial edema vs infection/aspiration. Sputum culture grew citrobacter koseri. ID consulted; suggest no active infection and fevers likely 2/2 drug reaction, recommend d/c unasyn and no further abx therapy. - consider D/C unasyn 1.5 g Q6H (10/04- ) - Monitor fevers Hematology Elevated D-Dimer Iron Deficiency Anemia Menorrhagia S/p iron infusion and 1 u pRBCs. Hgb remaining stable. - CBC daily, transfuse to maintain Hgb >7 - start PO iron supplementation once more euvolemic Endo Morbid Obesity Hirsutism No acute concerns, last A1c 5.3. - SSI Q6H Dispo: MICU Prognosis: Guarded Code Status: FULL (discussed with Spouse Ac Garcia via phone [phone]) Fany Diaz MD Dept of [facility] COURSE: Vinnie Aguilera is a 43 year old female with ETIENNE, severe pHTN, PFTs w/restrictive pattern (2013), chronic hypoxic RF (on 3-4L O2 intermittently), Pickwickian syndrome, HTN, CHFpEF (TTE 09/23/19), chronic Fe Deficiency Anemia, menorrhagia, tobacco use disorder, THC use disorder, and morbid obesity who presents from the ER for management of acute on chronic hypercapnic and hypoxic RF. ABGs were significant for increasing acidosis which improved with intubation once on MICU floor. DVT ruled out on doppler, thus CT PE not obtained as well as intermediate wells score. Diuresing aggressively in the setting of acute on chronic HFpEF. Continuation of adjustment of vent settings while intubated. Fever of 100.6 36-48 hours after intubation (had vomiting after intubation). Patient was initially on Vanc + Merrem due to concern for aspiration PNA, which was then de-escalated to Unasyn. Infectious workup negative and procal WNL. CBT trial failed twice. As patient could not be weaned off vent despite aggressive diuresis and completion of abx, tracheostomy tube was placed by ENT on 10/03. Patient continuedto spike fevers, sputum grew citrobacter koseri and ID was consulted. ID suspect hypersensitivity reaction likely to beta lactams. GI consulted, suggest fever less likely related to biliary source given normal LFTs, recommend HIDA scan for further eval or contrast CTAP if still concerned for biliary source. Associated attestation - Mustapha Carpenter MD - 10/09/2019 9:01 AM CDTI personally examined the patient on 10/09/[address] Diaz's resident note as written . I actively participated in the decision-making process. Please see the resident's note for additional details. Estela Forde MD - 10/08/2019 4:57 PM CDTBrief MICU Note Date: 10/08/2019 ICU day: 17 day Intubation Day: 17 Code Status: CPR 12 Hour Events: HIDA scan canceled due to patient not tolerating laying flat and Fentanyl drip affecting the HIDA scan result (can cause sphincter of Oddi contraction) MetaNeb and Hypersal frequency increased to TID ID consulted due to 1+ Citrobacter koseri in the sputum Per ID: No evidence of active infection. She has developed fever and worsening eosinophilia, suggestive of a hypersensitivity reaction, likely to beta lactams. PPI switched to H2-cynthia as PPI can cause drug fever Plan for next 12 hours: Wean off sedation and vent setting as tolerated Will discuss on rounds whether we need to continue on Unasyn Estela Forde MD PGY-1 Internal Medicine [phone] olfPamela LBSW - 10/08/2019 12:20 PM CDTSocial Work Note 10/08/2019 12:20 PM LOUISE contacted [employer] at [phone] and spoke with Ping. LOUISE informed Halima Cid awaiting patient to wean from vent for signature of [facility] Application and final records to review for SSI application. BUTCH Grace Sheet Metal Apprentice/Care Management Office [phone] EDUARDOTKlchidi, Kam Holt MD - 10/08/2019 11:12 AM CDT Department of Gastroenterology & Hepatology ProgressNote Requesting Physician: Dr. Forde Service: ICU Reason for Consultation: Patient with persistent fever despite multiple antibiotics regimen and negative cultures. US abdomen concerning for hydropic gallbladder with cholelithiasis with the common bile duct is dilated measuring up to 8 mm in diameter, which raises concern for choledocholithiasis. Please assist with further management and whether MRCP is warranted. Date of Service: 10/08/19 SUBJECTIVE/MAJOR EVENTS Patient sedated, per bedside nurse possibility of not fitting in nuclear medicine and she desats when laying lfat. Had light brown BM overnight PHYSICAL EXAM BP 100/52 | Pulse 76 | Temp 38.8 C (101.8 F) (Skin) | Resp 20 | Wt 209 kg (460 lb 12.2 oz) | SpO2 94% | BMI 68.04 kg/m General: Patient intubated and sedated. HEENT: trach in place Abdominal: obese abdomen, soft Cardiovascular: Regular rate and rhythm Respiratory: unlabored breathing LABORATORY THB ART (G/DL) Date Value 02/23/2014 11.7 (L) HGB Date Value 10/08/2019 7.4 g/dL (L) 10/07/2019 7.2 g/dL (L) 10/06/2019 7.2 g/dL (L) 03/11/2014 10.2 G/DL (L) 03/10/2014 10.0 G/DL (L) 03/09/2014 10.3 G/DL (L) PLT x10^3 (/uL) Date Value 03/11/2014 299 03/10/2014 307 03/09/2014 322 PLT (10*3/L) Date Value 10/08/2019 500 (H) 10/07/2019 566 (H) 10/06/2019 606 (H) PT INR (no units) Date Value 03/04/2014 0.9 02/18/2014 1.1 INR (no units) Date Value 09/20/2019 1.3 04/28/2018 1.1 09/07/2015 1.0 Hepatic Function Panel ALBUMIN Date Value 10/08/2019 3.0 g/dL (L) 02/18/2014 3.4 G/DL (L) T PROTEIN Date Value 10/08/2019 7.5 g/dL 02/18/2014 7.3 G/DL TOTAL BILI Date Value 10/08/2019 0.8 mg/dL 02/18/2014 0.7 MG/DL BILI UNCON (mg/dL) Date Value 10/08/2019 0.2 BILI CONJ (mg/dL) Date Value 10/08/2019 0.0 ALT(SGPT) (U/L) Date Value 10/04/2018 18 02/18/2014 24 ALTv (U/L) Date Value 10/08/2019 14 AST(SGOT) (U/L) Date Value 10/08/2019 59 (H) 02/18/2014 45 (H) ALK PHOS (U/L) Date Value 10/08/2019 49 02/18/2014 87 BMP NA Date Value 10/08/2019 146 mmol/L (H) 03/19/2014 138 MMOL/L K Date Value 10/08/2019 3.5 mmol/L 03/19/2014 4.2 MMOL/L CALCIUM Date Value 10/08/2019 8.9 mg/dL 03/19/2014 9.2 MG/DL CL Date Value 10/08/2019 105 mmol/L 03/19/2014 106 MMOL/L BUN Date Value 10/08/2019 34 mg/dL (H) 03/19/2014 21 MG/DL CREATININE Date Value 10/08/2019 0.83 mg/dL 03/19/2014 1.25 MG/DL (H) GLUCOSE Date Value 10/08/2019 105 mg/dL 03/19/2014 88 MG/DL CO2 TOTAL Date Value 10/08/2019 34 mmol/L (H) 03/19/2014 25 MMOL/L ASSESSMENT AND PLAN Vinnie Aguilera is a 43 year old female with PMH as listed above, GI consulted for: Fever Acute on Chronic Hypoxic Hypercapnic Respiratory Failure - Patient with a prolonged hospitalization due to respiratory failure requiring intubation for 17 days so far, with persistent fever. - Regarding persistent fever, biliary source of fever is unlikely given the normal liver chemistry. She has other sources of possible fever (Citrobacter in sputum, drug fever given eosinophilia, ?COVIDgiven CXR findings despite aggressive diuresis, others). . -Can limit PPI to daily or consider discontinuing and switching to H2 cynthia for ulcer ppx as has known association with drug fever - Recommend HIDA scan for further evaluation if possible, if not could consider contrasted CT A/P ifstill concerned for biliary pathology - Daily LFTs Patient was seen and discussed with Dr. Cifuentes. Please call with any questions. GI will sign off atthis time. Kam Voss MD PGY 4 Gastroenterology [id number] Associated attestation - Deepa Cifuentes MD - 10/08/2019 1:55 PM CDT I personally examined the patient on 10/08/[address] Voss's fellow note as written . I actively participated in the decision-making process. Please see the fellow's note for additional details. Deepa Cifuentes MD Hydrology Technician Division of Gastroenterology and Hepatology [facility] Laith Delgado MD - 10/08/2019 7:20 AM CDT ENT Progress Note 10/08/2019 07:20 CC: ventilator dependence, morbid obesity 24 hr events: NAEO, no issues with trach O: Intake/Output Summary (Last 24 hours) at 10/08/2019 0720 Last data filed at 10/08/2019 0600 Gross per 24 hour Intake 2445.7 ml Output 1870 ml Net 575.7 ml BP 97/53 | Pulse 78 | Temp 38.7 C (101.7 F) | Resp 20 | Wt 460 lb 12.2 oz (209 kg) | SpO2 95% | BMI 68.04 kg/m Physical Exam HEENT: 8-0 proximal XLT trach in good position with soft collar and suture, sutures removed this morning A/P Vinnie Aguilera is a 43 year old female with Pickwickian Syndrome, now s/p tracheotomy with on 10/04/19. Suture removed today. She has a 80XLTCP Shiley Tube in place. -Please keep the following at bedside at all times: spare 6-0 and 8-0 proximal XLT cuffed and uncuffed shiley trach tube, inner cannulas, soft suction tubing, soft trach collar, and obturator taped towall at bedside. -If patient leaves room for a test/procedure, bring the obturator with patient on the chart -Suction trach tube Q2h -Examine inner cannula daily - change Q48h -Trach care teaching for patient and family members daily - patient will need to DC home with suction machine, trach supplies all of which can be obtained through care management Laith Delgado MD Otolaryngology--Head and Neck Surgery Associated attestation - Main Samuel MD - 10/21/2019 2:24 PM CDTI have seen and examined the patient and actively participated in the decision making process. I have reviewed the above note and have made changes where applicable. Main Samuel MD Otolaryngology Main Taylor MD - 10/08/2019 12:16 AM CDT MICU Progress Note Date of Service: 10/08/2019 00:16 Reason for ICU admission: Acute on Chronic Hypercapnic Hypoxic Respiratory Failure 2/2 Untreated ETIENNE/OHS and Acute on Chronic HFpEF ICU Day: 16 Intubation Day: 16 Code Status: Full Last 24 hour events (major events): - continuing to remain febrile - GI consulted for possible dilation of CBD; recommending HIDA - sputum growing citrobacter koseri - attempting to wean propofol due to possible contribution to fevers - weaned PEEP from 10 - > 8 Subjective: Trach in place and sedated. Ventilator Bundle: Sedation/Analgesia + RASS: propofol, precedex Stress ulcer prophylaxis: PPI DVT prophylaxis: lovenox Insulin drip: no Nutrition: pivot Lines (with dates): A-line right radial 09/21/19 Midline 10/01/19 NG tube 09/21/19 Intake/Output: Intake/Output Summary (Last 24 hours) at 10/08/2019 0016 Last data filed at 10/07/2019 2300 Gross per 24 hour Intake 2653.85 ml Output 1800 ml Net 853.85 ml Physical Exam: Temp: [38.3 C (100.9 F)-39 C (102.2 F)] Heart Rate (monitor): [72-89] Pulse: [71-98] Resp: [18-22] BP: (98-117)/(46-69) MAP (mmHg): [63-83] Constitutional: sedated HEENT: NCAT, trach in place Resp: appears clear to auscultation, no crackles or wheezing appreciated Cardio: RRR, no murmurs GI: soft, non-distended MSK: unable to assess back for ulcers Extremities: trace edema, wrinkling of skin of BLE present Labs (pertinent only)/Imaging: Recent Labs 09/30/19 0317 10/02/19 0355 10/04/19 0642 10/06/19 0349 10/07/19 0507 WBC 9.74 9.16 8.96 7.67 6.83 HGB 7.1* 7.2* 7.5* 7.2* 7.2* HCT 30.6* 31.4* 31.5* 29.8* 29.1* MCV 79.3* 81.8 83.6 83.2 82.7 PLT 282 415* 644* 606* 566* Recent Labs 10/02/19 0355 10/03/19 0307 10/04/19 0630 10/05/19 0240 10/06/19 0349 10/07/19 0507 NA 149* 148* 146* 146* -- 144 K 3.7 3.8 4.4 3.8 -- 3.8 CA 9.1 9.1 9.0 9.0 -- 8.8 CL 107 104 102 102 -- 105 BUN 39* 41* 46* 52* -- 36* CREAT 1.17* 1.20* 1.27* 1.52* -- 0.85 GLU 100 92 101 100 -- 111* TCO2 39* 37* 37* 36* -- 34* MG 2.6* 2.6* 2.5* 2.4 2.5* 2.2 Assessment/Plan: Vinnie Aguilera is a 43 year old female admitted to the MICU with acute on chronic hypercapnic & hypoxic respiratory failure secondary to acute HFpEF exacerbation and untreated ETIENNE/OHS Neuro Toxic Metabolic Encephalopathy 2/2 Profound Hypercapnia THC Use Disorder Patient obtunded upon arrival to MICU 2/2 Mikey >160 and was intubated. Has required increased sedation for agitation. - Sedation/Analgesia: propofol, precedex Respiratory Acute on Chronic Hypercapnic Hypoxic Respiratory Failure 2/2 Acute HFpEF Exacerbation and Untreated ETIENNE/OHS s/p tracheostomy (10/03) - on 3-4L O2 at home Severe Pulmonary HTN Pickwickian Syndrome Morbid Obesity PFTs w/ Restrictive Pattern, not COPD (2013) Tobacco Use Disorder Unable to wean off vent despite aggressive diuresis and completion of abx for aspiration PNA. Underwent tracheostomy by ENT on 10/03 as patient continued to require prolonged ventilatory support. - suction Q4H and PRN - notify ENT if concerns with trach - c/w hypersal BID - c/w duonebs Q6H Cardiovascular Acute on Chronic Diastolic HF HTN | HLD Prolonged QTc TTE during this admission showed EF 55-60%, RVSP significantly elevated and RV moderately dilated. Did not comment on diastolic function, study was technically difficult. - strict I/Os - BMP Q12H and Mg daily; keep K>4, Mg>2 - avoid QTc prolonging agents - c/w ASA daily - bumex IV 2 mg Q12H GI/Nutrition Elevated AST Hepatic steatosis Constipation - resolved Had RUQ U/S demonstrating possible dilation of CBD and ordered HIDA. - bowel regimen with miralax and senokot - Consulted GI appreciate recommendations Renal/Electrolytes/Fluids Uncompensated Respiratory Acidosis - resolved JOSELUIS and Hypernatremia 2/2 Diuresis Cr and Na uptrended, likely associated with aggressive diuresis. Started free water boluses to correct free water deficit. Will hold diuretics for today as Cr continuing to uptrend with gentle diuresis. - 300 cc free water boluses Q3H - holding bumex as above ID Aspiration Pneumonia s/p Abx FUO Initially on vanc/freida and later de-escalated to unasyn, has completed course of abx on 10/01. Patient continuing to spike fevers for past 24 hours, CXR s/p trach with interval worsening of b/l opacities concerning for interstitial edema vs infection/aspiration. - start unasyn 1.5 g Q6H for suspected aspiration PNA (10/04- ) - michel-cultured, f/u results - Consider ID consult Hematology Elevated D-Dimer Iron Deficiency Anemia Menorrhagia S/p iron infusion and 1 u pRBCs. Hgb remaining stable. - CBC daily, transfuse to maintain Hgb >7 - start PO iron supplementation once more euvolemic Endo Morbid Obesity Hirsutism No acute concerns, last A1c 5.3. - SSI Q6H Dispo: MICU Prognosis: Guarded Code Status: FULL (discussed with Spouse Ac Garcia via phone [phone]) Bay Taylor M.D. Internal Medicine PGY-3 [facility]'s Team Doctor # [id number] Pager # [phone] HOSPITAL COURSE: Vinnie Aguilera is a 43 year old female with ETIENNE, severe pHTN, PFTs w/restrictive pattern (2013), chronic hypoxic RF (on 3-4L O2 intermittently), Pickwickian syndrome, HTN, CHFpEF (TTE 09/2018), chronic Fe Deficiency Anemia, menorrhagia, tobacco use disorder, THC use disorder, and morbid obesity who presents from the ER for management of acute on chronic hypercapnic and hypoxic RF. ABGs were significant for increasing acidosis which was improved with subsequent intubation once on MICU floor. DVTruled out on doppler, thus CT PE not obtained as well as intermediate wells score. Diuresing agressively in the setting of acute on chronic HFpEF. Continuation of adjustment of vent settings while intubated. Fever of 100.6 36-48 hours after intubation (had vomiting after intubation). Patient was initially on Vanc + Merrem due to concern for aspiration PNA, which was then de-escalated to Unasyn. Infectious workup negative and procal WNL. CBT trial failed twice. As patient could not be weaned off ventdespite aggressive diuresis and completion of abx, tracheostomy tube was placed by ENT on 10/03. Associated attestation - Mustapha Carpenter MD - 10/08/2019 9:32 AM CDTI personally examined the patient on 10/08/[address] Taylor's resident note as written .I actively participated in the decision-making process. Please see the resident's note for additional details. Estela Forde MD - 10/07/2019 3:11 PM CDTBrief MICU Note Date: 10/07/2019 ICU day: 16 day Intubation Day: 16 Code Status: CPR 12 Hour Events: GI consulted given findings of RUQ US HIDA scan ordered Sputum culture significant for 1+ citrobacter Koseri Patient continues to have febrile episodes Klonopin started for persistent agitation Holding off on tube feeds for now Plan for next 12 hours: Follow up HIDA scan result Unclear source of fever for now Estela Forde MD PGY-1 Internal Medicine [phone] - 10/07/2019 1:09 PM CDT Medical Nutrition Therapy- Progress Note: Malnutrition Assessment: Nutritional Diagnosis: None SGA Rating: Well-Nourished, Normal History of Present Illness Patient admitted due to dyspnea and acute on chronic hypercapnic and hypoxic respiratory failure dueto HF exacerbation. Patient intubated upon arrival. Shortly after intubation and sedation with propofol, patient became hypotensive requiring peripheral levophed to maintain MAP >60. Patient is also11 pack per year smoker also with marijuana use. Patient also with uncompensated respiratory acidosis, severe pulmonary hypertension, and toxic metabolic encephalopathy. NG tube placed 09/20/19. Patient also with iron deficiency. Patient also with chronic volume overload and aspiration pneumonia. Patient with toxic metabolic encephalopathy due to profound hypercapnia. Patient now with trach. GI and Nutrition Related Findings: Symptoms: N/A Difficulty: N/A GI tract alteration: N/A Alternative means of nutrition: DHT General: Edema- trace BLE Lab and Medical Test Results: NA Date Value 10/07/2019 144 mmol/L 03/19/2014 138 MMOL/L K Date Value 10/07/2019 3.8 mmol/L 03/19/2014 4.2 MMOL/L CALCIUM Date Value 10/07/2019 8.8 mg/dL 03/19/2014 9.2 MG/DL BUN Date Value 10/07/2019 36 mg/dL (H) 03/19/2014 21 MG/DL CREATININE Date Value 10/07/2019 0.85 mg/dL 03/19/2014 1.25 MG/DL (H) GLUCOSE Date Value 10/07/2019 111 mg/dL (H) 03/19/2014 88 MG/DL Ref. Range 09/20/2019 22:22 IRON Latest Ref Range: 50 - 160 ug/dL 37 (L) Weight History: Wt Readings from Last 20 Encounters: 10/06/19 209 kg (460 lb 12.2 oz) 10/06/18 225.4 kg (496 lb 14.7 oz) 05/01/18 218 kg (480 lb 9.6 oz) 06/14/16 183.7 kg (405 lb) 05/29/16 186 kg (410 lb) 10/14/15 165.9 kg (365 lb 11.2 oz) 09/07/15 165.6 kg (365 lb) 03/19/14 173.3 kg (382 lb) 03/12/14 172.8 kg (380 lb 14.4 oz) 12% weight loss in 1 year- 36 lbs Inflammatory Markers: Elevated Temp, Hyperglycemia Current Dietary Order(s): Pivot 1.5 (1.5 kcal/mL, 25% protein, + Arginine & [place]-3) NPO Except Meds Diet. Nurse to ask primary team when feeding may resume. EMR documented food allergies/intolerance/cultural preferences: will confirm at later visit Nutrition & Diet History: Spoke with patient's nurse today. Per nurse, patient's TF has been stopped since 10/02 due to ultrasound showing abdominal distension. Per nurse, they are still running tests to understand the cause of abdominal distension. Previously patient's feeds were held due to not having tubing for feeds. Per results review, patient's JOSELUIS has mostly resolved. Patient is currently on IV fluids ongoing for 4 days. Please see TF recommendations below for when Patient is able to restart feeds. Currently propofol is running at 25.2 ml/hr providing about 665 kcal per day.Will continue to follow. Estimated Daily Nutritional Needs: MSJ (w/o activity factor): 3125 kcal/day = 14 kcal/kg MSJ x 1.2: 3551 kcal/day = 16 kcal/kg Protein: 21% of kcal need/day = >165 g/day = 0.7 g/kg current wt = >2.5 g/kg IBW Fluid: <2000 mL/day or per MD; adjust per acute needs (heart failure) Nutrition Diagnosis: Inadequate oral intake related to recent intubation as evidenced by need for TF.-resolving Nutrition Plan of Care: Intervention(s): 1. Recommend TF with Pivot 1.5 at 75 ml/hr goal rate Provides 2700 kcal, 169 gm protein, 1366 ml free water TF + Propofol provides 3365 kcal per day 2. Recommend minimum of 30 ml water flush every 4 hours to help prevent tube occlusions -If no IVF, recommend 90 ml water flush every 4 hours to help meet fluid needs (TF+ Flush provides 1906 ml fluid) 3. Monitor glucose and electrolytes while on TF 4. Keep head of bed elevated 30-45 degrees for patient at risk for aspiration 5. Advance diet per MD/SITE PROJECT MANAGER 6. Continue with protonix Goal(s): 1. Patient will be able to meet 100% of protein, calorie, and fluid needs via TF. D/C Planning: Continue with current recommendations. Nutrition Monitoring and Evaluation: A registered dietitian will f/u as indicated to report nutrition related information and to revise the recommended nutrition intervention(s); please call with questions or concerns, thank-you. Marialuisa Olea, MS, RD, LD Clinical Dietitian RD Office: [phone] Pamela Swanson LBSW - 10/07/2019 11:17 AM CDTSocial Work Note 10/07/2019 11:17 AM LOUISE contacted [employer], left a message and requested a call back to verify status of funding application. () LOUISE called and spoke with spouse, Ginny Garcia at [phone]. She reported she is waiting for [employer] to contact her tomorrow and work on more funding applications. Spouse could not clarify which application but stated they are working on funding. SW to follow-up with [employer] next business day. BUTCH [employer] Apprentice/Care Management Office [phone] Main Giles MD - 10/07/2019 2:06 AM CDT MICU Progress Note Date of Service: 10/07/2019 02:06 Reason for ICU admission: Acute on Chronic Hypercapnic Hypoxic Respiratory Failure 2/2 Untreated ETIENNE/OHS and Acute on Chronic HFpEF ICU Day: 16 Intubation Day: 16 Code Status: Full Last 24 hour events (major events): - continuing to remain febrile for past 24 hours with Tmax 102.9 F - US demonstrating possible dilation of CBD, ordered MRCP - reactive thrombocytosis on CBC Subjective: Trach in place and sedated. Ventilator Bundle: Sedation/Analgesia + RASS: propofol, precedex Stress ulcer prophylaxis: PPI DVT prophylaxis: lovenox Insulin drip: no Nutrition: pivot Lines (with dates): A-line right radial 09/21/19 Midline 10/01/19 NG tube 09/21/19 Intake/Output: Intake/Output Summary (Last 24 hours) at 10/07/2019 0206 Last data filed at 10/06/2019 2200 Gross per 24 hour Intake 2583 ml Output 4200 ml Net -1617 ml Physical Exam: Temp: [38.1 C (100.6 F)-39.2 C (102.6 F)] Heart Rate (monitor): [87-112] Pulse: [87-112] Resp: [17-32] BP: (78-130)/(56-72) MAP (mmHg): [66-88] Constitutional: sedated HEENT: NCAT, trach in place Resp: appears clear to auscultation, no crackles or wheezing appreciated Cardio: RRR, no murmurs GI: soft, non-distended MSK: unable to assess back for ulcers Extremities: trace edema, wrinkling of skin of BLE present Labs (pertinent only)/Imaging: Recent Labs 09/29/19 0347 09/30/19 0317 10/02/19 0355 10/04/19 0642 10/06/19 0349 WBC 8.74 9.74 9.16 8.96 7.67 HGB 7.4* 7.1* 7.2* 7.5* 7.2* HCT 32.4* 30.6* 31.4* 31.5* 29.8* MCV 77.9* 79.3* 81.8 83.6 83.2 PLT 213 282 415* 644* 606* Recent Labs 10/01/19 1634 10/02/19 0355 10/03/19 0307 10/04/19 0630 10/05/19 0240 10/06/19 0349 NA 150* 149* 148* 146* 146* -- K 3.8 3.7 3.8 4.4 3.8 -- CA 9.0 9.1 9.1 9.0 9.0 -- CL 106 107 104 102 102 -- BUN 42* 39* 41* 46* 52* -- CREAT 1.22* 1.17* 1.20* 1.27* 1.52* -- GLU 104 100 92 101 100 -- TCO2 38* 39* 37* 37* 36* -- MG -- 2.6* 2.6* 2.5* 2.4 2.5* Assessment/Plan: Vinnie Aguilera is a 43 year old female admitted to the MICU with acute on chronic hypercapnic & hypoxic respiratory failure secondary to acute HFpEF exacerbation and untreated ETIENNE/OHS Neuro Toxic Metabolic Encephalopathy 2/2 Profound Hypercapnia THC Use Disorder Patient obtunded upon arrival to MICU 2/2 Mikey >160 and was intubated. Has required increased sedation for agitation. - Sedation/Analgesia: propofol, precedex Respiratory Acute on Chronic Hypercapnic Hypoxic Respiratory Failure 2/2 Acute HFpEF Exacerbation and Untreated ETIENNE/OHS s/p tracheostomy (10/03) - on 3-4L O2 at home Severe Pulmonary HTN Pickwickian Syndrome Morbid Obesity PFTs w/ Restrictive Pattern, not COPD (2013) Tobacco Use Disorder Unable to wean off vent despite aggressive diuresis and completion of abx for aspiration PNA. Underwent tracheostomy by ENT on 10/03 as patient continued to require prolonged ventilatory support. - suction Q4H and PRN - notify ENT if concerns with trach - c/w hypersal BID - c/w duonebs Q6H Cardiovascular Acute on Chronic Diastolic HF HTN | HLD Prolonged QTc TTE during this admission showed EF 55-60%, RVSP significantly elevated and RV moderately dilated. Did not comment on diastolic function, study was technically difficult. - strict I/Os - BMP Q12H and Mg daily; keep K>4, Mg>2 - avoid QTc prolonging agents - c/w ASA daily - may consider holding bumex IV 2 mg Q12H if Cr still elevated GI/Nutrition Elevated AST Hepatic steatosis Constipation - resolved Had RUQ U/S done in 08/2015 that showed hepatomegaly with diffuse hepatic steatosis. - bowel regimen with miralax and senokot Renal/Electrolytes/Fluids Uncompensated Respiratory Acidosis - resolved JOSELUIS and Hypernatremia 2/2 Diuresis Cr and Na uptrended, likely associated with aggressive diuresis. Started free water boluses to correct free water deficit. Will hold diuretics for today as Cr continuing to uptrend with gentle diuresis. - 300 cc free water boluses Q3H - holding bumex as above ID Aspiration Pneumonia s/p Abx Fevers Initially on vanc/freida and later de-escalated to unasyn, has completed course of abx on 10/01. Patient continuing to spike fevers for past 24 hours, CXR s/p trach with interval worsening of b/l opacities concerning for interstitial edema vs infection/aspiration. - start unasyn 1.5 g Q6H for suspected aspiration PNA (10/04- ) - michel-cultured, f/u results Hematology Elevated D-Dimer Iron Deficiency Anemia Menorrhagia S/p iron infusion and 1 u pRBCs. Hgb remaining stable. - CBC daily, transfuse to maintain Hgb >7 - start iron supplementation once more euvolemic Endo Morbid Obesity Hirsutism No acute concerns, last A1c 5.3. - SSI Q6H Dispo: MICU Prognosis: Guarded Code Status: FULL (discussed with Spouse Ac Garcia via phone [phone]) Bay Taylor M.D. Internal Medicine PGY-3 [facility] Team Doctor # [id number] Pager # [phone] HOSPITAL COURSE: Vinnie Aguilera is a 43 year old female with ETIENNE, severe pHTN, PFTs w/restrictive pattern (2013), chronic hypoxic RF (on 3-4L O2 intermittently), Pickwickian syndrome, HTN, CHFpEF (TTE 09/2018), chronic Fe Deficiency Anemia, menorrhagia, tobacco use disorder, THC use disorder, and morbid obesity who presents from the ER for management of acute on chronic hypercapnic and hypoxic RF. ABGs were significant for increasing acidosis which was improved with subsequent intubation once on MICU floor. DVTruled out on doppler, thus CT PE not obtained as well as intermediate wells score. Diuresing agressively in the setting of acute on chronic HFpEF. Continuation of adjustment of vent settings while intubated. Fever of 100.6 36-48 hours after intubation (had vomiting after intubation). Patient was initially on Vanc + Merrem due to concern for aspiration PNA, which was then de-escalated to Unasyn. Infectious workup negative and procal WNL. CBT trial failed twice. As patient could not be weaned off ventdespite aggressive diuresis and completion of abx, tracheostomy tube was placed by ENT on 10/03. Associated attestation - Mustapha Carpenter MD - 10/07/2019 9:44 AM CDTI personally examined the patient on 10/07/[address] Taylor's resident note as written .I actively participated in the decision-making process. Please see the resident's note for additional details. Precious Paz, - 10/06/2019 7:17 PM CDTBri MICU Note Date: 10/06/2019 19:17 Code Status: CPR ICU day: 16 Intubation Day: 16 12 Hour Events (includes major events throughout the day, patient status, significant labs, radiology, consult updates): - Continued fevers - RUQ US done - read pending - LFT's ordered. AST 72 Temp: [38.5 C (101.3 F)-39.4 C (102.9 F)] Heart Rate (monitor): [90-100] Pulse: [90-104] Resp: [19-25] BP: (78-132)/(55-72) MAP (mmHg): [66-88] Plan for the Next 12 Hours (includes anticipated events, complications to watch for, pending labs/radiology/consults): - Follow-up RUQ US final read. If no signs of infection, Will order CT abdomen w/wo contrast to lookfor any abscesses or other signs of infection. If negative, will consult ID. - Continue Unasyn. Precious Paz DO Internal Medicine, PGY-1 [facility] Pager# [phone] Liz Azevedo MD - 10/06/2019 1:42 AM CDT MICU Progress Note Date of Service: 10/06/2019 01:42 Reason for ICU admission: Acute on Chronic Hypercapnic Hypoxic Respiratory Failure 2/2 Untreated ETIENNE/OHS and Acute on Chronic HFpEF ICU Day: 16 Intubation Day: 16 Code Status: Full Last 24 hour events (major events): - continuing to remain febrile for past 24 hours with Tmax 102.6 F - michel-cultured and started on unasyn due to concern for aspiration PNA Subjective: Trach in place and sedated. Ventilator Bundle: Sedation/Analgesia + RASS: propofol, precedex Stress ulcer prophylaxis: PPI DVT prophylaxis: lovenox Insulin drip: no Nutrition: pivot Lines (with dates): A-line right radial 09/21/19 Midline 10/01/19 NG tube 09/21/19 Intake/Output: Intake/Output Summary (Last 24 hours) at 10/06/2019 0142 Last data filed at 10/05/2019 2245 Gross per 24 hour Intake 1879.5 ml Output 3400 ml Net -1520.5 ml Physical Exam: Temp: [38 C (100.4 F)-39.3 C (102.7 F)] Heart Rate (monitor): [90-104] Pulse: [90-107] Resp: [14-25] BP: (101-129)/(53-76) MAP (mmHg): [67-90] Constitutional: sedated HEENT: NCAT, trach in place Resp: appears clear to auscultation, no crackles or wheezing appreciated Cardio: RRR, no murmurs GI: soft, non-distended MSK: unable to assess back for ulcers Extremities: trace edema, wrinkling of skin of BLE present Labs (pertinent only)/Imaging: Recent Labs 09/28/19 0248 09/29/19 0347 09/30/19 0317 10/02/19 0355 10/04/19 0642 WBC 8.52 8.74 9.74 9.16 8.96 HGB 7.1* 7.4* 7.1* 7.2* 7.5* HCT 30.7* 32.4* 30.6* 31.4* 31.5* MCV 77.3* 77.9* 79.3* 81.8 83.6 PLT 186 213 282 415* 644* Recent Labs 10/01/19 0518 10/01/19 1634 10/02/19 0355 10/03/19 0307 10/04/19 0630 10/05/19 0240 NA 149* 150* 149* 148* 146* 146* K 3.4* 3.8 3.7 3.8 4.4 3.8 CA 9.0 9.0 9.1 9.1 9.0 9.0 CL 103 106 107 104 102 102 BUN 44* 42* 39* 41* 46* 52* CREAT 1.33* 1.22* 1.17* 1.20* 1.27* 1.52* GLU 101 104 100 92 101 100 TCO2 38* 38* 39* 37* 37* 36* MG 2.5* -- 2.6* 2.6* 2.5* 2.4 Assessment/Plan: Vinnie Aguilera is a 43 year old female admitted to the MICU with acute on chronic hypercapnic & hypoxic respiratory failure secondary to acute HFpEF exacerbation and untreated ETIENNE/OHS Neuro Toxic Metabolic Encephalopathy 2/2 Profound Hypercapnia THC Use Disorder Patient obtunded upon arrival to MICU 2/2 Mikey >160 and was intubated. Has required increased sedation for agitation. - Sedation/Analgesia: propofol, precedex Respiratory Acute on Chronic Hypercapnic Hypoxic Respiratory Failure 2/2 Acute HFpEF Exacerbation and Untreated ETIENNE/OHS s/p tracheostomy (10/03) - on 3-4L O2 at home Severe Pulmonary HTN Pickwickian Syndrome Morbid Obesity PFTs w/ Restrictive Pattern, not COPD (2013) Tobacco Use Disorder Unable to wean off vent despite aggressive diuresis and completion of abx for aspiration PNA. Underwent tracheostomy by ENT on 10/03 as patient continued to require prolonged ventilatory support. - suction Q4H and PRN - notify ENT if concerns with trach - c/w hypersal BID - c/w duonebs Q6H Cardiovascular Acute on Chronic Diastolic HF HTN | HLD Prolonged QTc TTE during this admission showed EF 55-60%, RVSP significantly elevated and RV moderately dilated. Did not comment on diastolic function, study was technically difficult. - strict I/Os - BMP Q12H and Mg daily; keep K>4, Mg>2 - avoid QTc prolonging agents - c/w ASA daily - may consider holding bumex IV 2 mg Q12H if Cr still elevated GI/Nutrition Elevated AST Hepatic steatosis Constipation - resolved Had RUQ U/S done in 08/2015 that showed hepatomegaly with diffuse hepatic steatosis. - bowel regimen with miralax and senokot Renal/Electrolytes/Fluids Uncompensated Respiratory Acidosis - resolved JOSELUIS and Hypernatremia 2/2 Diuresis Cr and Na uptrended, likely associated with aggressive diuresis. Started free water boluses to correct free water deficit. Will hold diuretics for today as Cr continuing to uptrend with gentle diuresis. - 300 cc free water boluses Q3H - holding bumex as above ID Aspiration Pneumonia s/p Abx Fevers Initially on vanc/freida and later de-escalated to unasyn, has completed course of abx on 10/01. Patient continuing to spike fevers for past 24 hours, CXR s/p trach with interval worsening of b/l opacities concerning for interstitial edema vs infection/aspiration. - start unasyn 1.5 g Q6H for suspected aspiration PNA (10/04- ) - michel-cultured, f/u results Hematology Elevated D-Dimer Iron Deficiency Anemia Menorrhagia S/p iron infusion and 1 u pRBCs. Hgb remaining stable. - CBC daily, transfuse to maintain Hgb >7 - start iron supplementation once more euvolemic Endo Morbid Obesity Hirsutism No acute concerns, last A1c 5.3. - SSI Q6H Dispo: MICU Prognosis: Guarded Code Status: FULL (discussed with Spouse Ac Garcia via phone [phone]) Liz Krueger MD PGY-2, [facility] Team Doctor's Number: [id number] HOSPITAL COURSE: Vinnie Aguilera is a 43 year old female with ETIENNE, severe pHTN, PFTs w/restrictive pattern (2013), chronic hypoxic RF (on 3-4L O2 intermittently), Pickwickian syndrome, HTN, CHFpEF (TTE 09/2018), chronic Fe Deficiency Anemia, menorrhagia, tobacco use disorder, THC use disorder, and morbid obesity who presents from the ER for management of acute on chronic hypercapnic and hypoxic RF. ABGs were significant for increasing acidosis which was improved with subsequent intubation once on MICU floor. DVTruled out on doppler, thus CT PE not obtained as well as intermediate wells score. Diuresing agressively in the setting of acute on chronic HFpEF. Continuation of adjustment of vent settings while intubated. Fever of 100.6 36-48 hours after intubation (had vomiting after intubation). Patient was initially on Vanc + Merrem due to concern for aspiration PNA, which was then de-escalated to Unasyn. Infectious workup negative and procal WNL. CBT trial failed twice. As patient could not be weaned off ventdespite aggressive diuresis and completion of abx, tracheostomy tube was placed by ENT on 10/03. Associated attestation - Jeovany Franoc Jr., MD - 10/06/2019 12:30 PM CDTI personally examined the patient on 10/[address] Krueger's resident note as written . I actively participated in the decision-making process. Please see the resident's note for additional details. Precious Paz DO - 10/05/2019 5:27 PM CDTBrief MICU Note Date: 10/05/2019 17:27 Code Status: CPR ICU day: 15 Intubation Day: 15 12 Hour Events (includes major events throughout the day, patient status, significant labs, radiology, consult updates): - Thyroid studies came back unremarkable - T max 102.6 - FiO2 weaned down to 40% - PEEP weaned down to 10 Temp: [37.9 C (100.2 F)-39.2 C (102.6 F)] Heart Rate (monitor): [87-104] Pulse: [87-107] Resp: [14-23] BP: (101-129)/(53-76) MAP (mmHg): [67-90] Plan for the Next 12 Hours (includes anticipated events, complications to watch for, pending labs/radiology/consults): - Continue to look for signs of infection. Look thoroughly for any sings of cellulitis, rash, or ulcers. - If fever curve goes up, obtain cultures and start broad-spectrum antibiotics. - Continue to monitor respiratory status. Precious Paz DO Internal Medicine, PGY-1 [place] Team Pager# [phone] EDUARDOTOumar Reddy MD - 10/05/2019 11:02 AM CDTENT Progress Note 10/05/2019 Cc: tracheotomy 24 Hr Events: - OR for tracheotomy, without complication - No acute events overnight - No desaturations overnight Objective: BP 101/58 | Pulse 93 | Temp 39.2 C (102.6 F) (Tympanic) | Resp 20 | Wt 219 kg (482 lb 12.9 oz) | SpO2 98% | BMI 71.30 kg/m Gen: Sedated HEENT: tracheotomy in good placement, held firmly in place by sutures and fresh trach tie. Anabell flap suture in place and taped to chest - Betadine pants removed from trach today Pulm: sedated, on ventilator, equal chest expansion Cardio: palpable pulse Assessment: Vinnie Aguilera is a 43 year old female with Pickwickian Syndrome, now s/p tracheotomy with on 10/04/19. Betadine pants removed today. She has a 80XLTCP Shiley Tube in place. Plan: Continue Fresh Trach Precautions - continue routine tracheostomy care; this includes, but is not limited to: * minimum 2-person team for moving patient, taking care to keeping head and neck relatively still during movement as sudden changes in neck extension/flexion can cause accidental displacement or decannulation of tracheotomy tube * HOB at 30 degrees * regularly taking out the inner canula and cleaning it at least once-daily * perform regular dressing changes around the tracheostomy to prevent maceration/breakdown of the skin secondary to exposure to secretions * regularly suctioning as needed * keeping air humidified * keeping vigilant regarding the pt's head and tracheostomy tube positioning; avoidance and early intervention is vital to prevent pressure necrosis * KEEP THE OBTURATOR WITH PT in case of accidental dislodgement of the tracheostomy so as to facilitate reinsertion * Keep spare same size trach at bedside AND one size below (Shiley 6-0 Cuffed Trach) Rest of care per primary team Oumar Reddy MD Otolaryngology - Head and Neck Surgery Resident Physician PGY 2 [phone] Associated attestation - Margaret Bautista MD - 10/05/2019 8:[address] discussion with Dr. Reddy and Dr. Baltazar, I examined this patient. I agree with resident's note as written. Margaret Bautista MD Hydrology Technician, Head & Neck Oncologic, Skull Base and Microvascular Reconstructive Surgery Department of Otolaryngology - Head & Neck Surgery [facility] Pager: Jazmin Mir PTA - 10/05/2019 7:02 AM CDTPTA NOTE: Per EPIC chart review this AM, patient remains intubated and sedated post trach placement. Supervising PT notified and PT to hold until patient is medically cleared for activity and can actively participate in functional training. Thank you. Jazmin Mir PTA Supervising PT Nicci Lance Liz Azevedo MD - 10/05/2019 1:06 AM CDT MICU Progress Note Date of Service: 10/05/2019 01:06 Reason for ICU admission: Acute on Chronic Hypercapnic Hypoxic Respiratory Failure 2/2 Untreated ETIENNE/OHS and Acute on Chronic HFpEF ICU Day: 15 Intubation Day: 15 Code Status: Full Last 24 hour events (major events): - trach placed by ENT Subjective: Intubated and sedated, appears comfortable. Ventilator Bundle: Sedation/Analgesia + RASS: propofol, precedex Stress ulcer prophylaxis: PPI DVT prophylaxis: lovenox Insulin drip: no Nutrition: pivot Lines (with dates): A-line right radial 09/21/19 Midline 10/01/19 NG tube 09/21/19 Intake/Output: Intake/Output Summary (Last 24 hours) at 10/05/2019 0106 Last data filed at 10/04/2019 2300 Gross per 24 hour Intake 1387.5 ml Output 1100 ml Net 287.5 ml Physical Exam: Temp: [37.2 C (98.9 F)-37.9 C (100.2 F)] Heart Rate (monitor): [77-90] Pulse: [77-93] Resp: [10-59] BP: (104-127)/(48-78) MAP (mmHg): [68-88] Constitutional: intubated and sedated HEENT: NCAT, trach in place with no active bleeding from site Resp: CTAB, no crackles or wheezing appreciated Cardio: RRR, no murmurs GI: soft, non-distended Extremities: trace edema, wrinkling of BLE skin present Labs (pertinent only)/Imaging: Recent Labs 09/28/19 0248 09/29/19 0347 09/30/19 0317 10/02/19 0355 10/04/19 0642 WBC 8.52 8.74 9.74 9.16 8.96 HGB 7.1* 7.4* 7.1* 7.2* 7.5* HCT 30.7* 32.4* 30.6* 31.4* 31.5* MCV 77.3* 77.9* 79.3* 81.8 83.6 PLT 186 213 282 415* 644* Recent Labs 09/30/19 0317 10/01/19 0518 10/01/19 1634 10/02/19 0355 10/03/19 0307 10/04/19 0630 NA 145 < > 149* 150* 149* 148* 146* K 4.1 < > 3.4* 3.8 3.7 3.8 4.4 CA 9.0 < > 9.0 9.0 9.1 9.1 9.0 CL 102 < > 103 106 107 104 102 BUN 41* < > 44* 42* 39* 41* 46* CREAT 1.12* < > 1.33* 1.22* 1.17* 1.20* 1.27* GLU 104 < > 101 104 100 92 101 TCO2 34* < > 38* 38* 39* 37* 37* MG 2.3 -- 2.5* -- 2.6* 2.6* 2.5* < > = values in this interval not displayed. Assessment/Plan: Vinnie Aguilera is a 43 year old female admitted to the MICU with acute on chronic hypercapnic & hypoxic respiratory failure secondary to acute HFpEF exacerbation and untreated ETIENNE/OHS Neuro Toxic Metabolic Encephalopathy 2/2 Profound Hypercapnia THC Use Disorder Patient obtunded upon arrival to MICU 2/2 Mikey >160 and was intubated. Has required increased sedation for agitation. - Sedation/Analgesia: propofol, precedex Respiratory Acute on Chronic Hypercapnic Hypoxic Respiratory Failure 2/2 Acute HFpEF Exacerbation and Untreated ETIENNE/OHS s/p tracheostomy (10/03) - on 3-4L O2 at home Aspiration Pneumonia s/p Abx Severe Pulmonary HTN Pickwickian Syndrome Morbid Obesity PFTs w/ Restrictive Pattern, not COPD (2013) Tobacco Use Disorder Unable to wean off vent despite aggressive diuresis and completion of abx for aspiration PNA. Underwent tracheostomy by ENT on 10/03 as patient continued to require prolonged ventilatory support. - suction Q4H and PRN - notify ENT if concerns with trach - c/w hypersal BID - c/w duonebs Q6H Cardiovascular Acute on Chronic Diastolic HF HTN | HLD Prolonged QTc TTE during this admission showed EF 55-60%, RVSP significantly elevated and RV moderately dilated. Did not comment on diastolic function, study was technically difficult. - strict I/Os - BMP and Mg daily; keep K>4, Mg>2 - avoid QTc prolonging agents - c/w ASA daily - hold bumex IV 2 mg Q12H for today - d/c metolazone 2.5 mg daily GI/Nutrition Elevated AST Hepatic steatosis Constipation - resolved Had RUQ U/S done in 08/2015 that showed hepatomegaly with diffuse hepatic steatosis. - bowel regimen with miralax and senokot Renal/Electrolytes/Fluids Uncompensated Respiratory Acidosis - resolved JOSELUIS and Hypernatremia 2/2 Diuresis Cr and Na uptrended, likely associated with aggressive diuresis. Started free water boluses to correct free water deficit. Will hold diuretics for today as Cr continuing to uptrend with gentle diuresis. - 300 cc free water boluses Q3H - holding bumex as above ID Initially on vanc/freida and later de-escalated to unasyn, has completed course of abx. Hematology Elevated D-Dimer Iron Deficiency Anemia Menorrhagia S/p iron infusion and 1 u pRBCs. Hgb remaining stable. - CBC daily, transfuse to maintain Hgb >7 - start iron supplementation once more euvolemic Endo Morbid Obesity Hirsutism No acute concerns, last A1c 5.3. - SSI Q6H Dispo: MICU Prognosis: Guarded Code Status: FULL (discussed with Spouse Ac Garcia via phone [phone]) Liz Krueger MD PGY-2, [facility] Team Doctor's Number: [id number] HOSPITAL COURSE: Vinnie Aguilera is a 43 year old female with ETIENNE, severe pHTN, PFTs w/restrictive pattern (2013), chronic hypoxic RF (on 3-4L O2 intermittently), Pickwickian syndrome, HTN, CHFpEF (TTE 09/2018), chronic Fe Deficiency Anemia, menorrhagia, tobacco use disorder, THC use disorder, and morbid obesity who presents from the ER for management of acute on chronic hypercapnic and hypoxic RF. ABGs were significant for increasing acidosis which was improved with subsequent intubation once on MICU floor. DVTruled out on doppler, thus CT PE not obtained as well as intermediate wells score. Diuresing agressively in the setting of acute on chronic HFpEF. Continuation of adjustment of vent settings while intubated. Fever of 100.6 36-48 hours after intubation (had vomiting after intubation). Patient was initially on Vanc + Merrem due to concern for aspiration PNA, which was then de-escalated to Unasyn. Infectious workup negative and procal WNL. CBT trial failed twice. As patient could not be weaned off ventdespite aggressive diuresis and completion of abx, tracheostomy tube was placed by ENT on 10/03. Associated attestation - Jeovany Franco Jr., MD - 10/05/2019 12:07 PM CDTI personally examined the patient on 10/[address] Krueger's resident note as written . I actively participated in the decision-making process. Please see the resident's note for additional details. Arpita Patel MD - 10/04/2019 3:47 PM CDTBrief MICU Note Date: 10/04/2019 17:24 ICU day: 14 Intubation Day: 14 Code Status: Full Code 12 Hour Events (should include: major events throughout the day, patient status, significant labs, radiology, consult updates): - Tracheostomy placed by ENT - Continued on Bumex 2 mg BID and metolazone 2.5 mmg PO QD - Vent requirements increased s/p trach Plan for next 12 hours (should include: anticipated events, complications to watch for, pending labs/radiology/consults): - Resume Lovenox in am - Monitor Na and Cr closely - Continue gentle diuresis - Monitor for bleeding s/p trach - Continue PT daily Arpita Patel MD Department Of Family Medicine, PGY-1 Derrick Clemons PT - 10/04/2019 3:02 PM CDTPT Note: Pt s/p tracheostomy today. Patient currently ventilated and sedated, not following commands. Will hold therapy and continue to follow, resuming LE strengthening with mobility training when medically appropriate and able to actively participate. [place] [id number] Pg [phone] Dept [id number] rTim molina MD - 10/04/2019 1:58 PM CDTENT BRIEF UPDATE Vinnie Aguilera is a 43 year old female with Pickwickian syndrome, morbid obesity, ETIENNE, pulmonary HTN, and chronic hypoxic respiratory failure with prolonged need for mechanical ventilation. She is now s/p tracheostomy ([place] 10/04/19) with a Shiley 80XLTDP in place. Secured with silk suture andsoft collar. Stay suture taped to neck - CXR ordered - Regular trach care by nursing - Suction Q4h and PRN - Change inner cannula daily and PRN - Do not remove betadine soaked gauze - Do not remove stay suture - Do not remove trach sutures - Remainder of care per primary team - Please page concrete floor installer ENT resident for questions or concerns Omkar Baltazar MD [facility] Estela Forde MD - 10/04/2019 12:12 AM CDT MICU Progress Note Date of Service: 10/04/2019 00:11 Reason for ICU admission: Acute Hypercapnic Hypoxic Respiratory Failure ICU Day: 12 Intubation Day: 12 Code Status: Full Last 24 hour events (major events): - Weaned off Versed and Fentanyl - ENT consulted for trach placement Subjective: Remains intubated. Not agitated Ventilator Bundle: Sedation/Analgesia + RASS: propofol, fentanyl, Versed 1-10 mg/hr, RASS 0 to -1 Stress ulcer prophylaxis: PPI enteral DVT prophylaxis: heparin Insulin drip: no Nutrition: Holding tube feed past midnight in preparation for trach tomorrow Lines (with dates): A-line right radial 09/21/19 Midline 10/01/19 NG tube 09/21/19 Intake/Output: Intake/Output Summary (Last 24 hours) at 10/04/2019 0011 Last data filed at 10/03/2019 1600 Gross per 24 hour Intake 1979.75 ml Output 2300 ml Net -320.25 ml Physical Exam: Temp: [36.4 C (97.5 F)-38.1 C (100.6 F)] Heart Rate (monitor): [73-93] Pulse: [73-93] Resp: [20-34] BP: (107-127)/(44-56) MAP (mmHg): [62-73] Constitutional: Intubated and sedated HEENT: PERRL Resp: CTA bilaterally on anterior lung hirsch Cardio: RRR with no audible murmur GI: Remains soft to palpation Labs (pertinent only)/Imaging: Recent Labs 09/27/19 0313 09/28/19 0248 09/29/19 0347 [id number] WBC 11.15* 8.52 8.74 9.74 9.16 HGB 7.4* 7.1* 7.4* 7.1* 7.2* HCT 33.0* 30.7* 32.4* 30.6* 31.4* MCV 77.3* 77.3* 77.9* 79.3* 81.8 PLT 177 186 213 282 415* Recent Labs 09/29/19 0347 09/30/1931609/30/19221410/01/1951710/01/19 1634 10/02/1935410/03/19 0307 NA 146* < > 145 147* 149* 150* 149* 148* K 4.0 < > 4.1 3.7 3.4* 3.8 3.7 3.8 CA 9.3 < > 9.0 8.9 9.0 9.0 9.1 9.1 CL 100 < > 102 103 103 106 107 104 BUN 35* < > 41* 45* 44* 42* 39* 41* CREAT 1.17* < > 1.12* 1.30* 1.33* 1.22* 1.17* 1.20* GLU 103 < > 104 105 101 104 100 92 TCO2 37* < > 34* 40* 38* 38* 39* 37* MG 2.1 -- 2.3 -- 2.5* -- 2.6* 2.6* < > = values in this interval not displayed. Recent Labs 10/04/18 16509/20/19222109/30/19316 ALB 3.1* 3.7 3.1* TPRO 6.6 7.8 7.5 BILIT 0.5 0.6 1.0 BILIUNCON 0.2 -- 0.6 BILICONJ 0.0 -- 0.0 ALT 18 19 11 AST 28 45* 51* ALKPHOS 44 60 46 Recent Labs 09/20/192221 PTINR 1.3 PTPAT 14.3* APTTPAT 27 Assessment/Plan: Vinnie Aguilera is a 43 year old female admitted to the MICU with acute on chronic hypercapnic & hypoxic respiratory failure secondary to acute HFpEF exacerbation and untreated ETIENNE/OHS Neuro Toxic Metabolic Encephalopathy 2/2 Profound Hypercapnia THC Use Disorder Patient obtunded upon arrival to MICU 2/2 Mikey >160. - Sedation/Analgesia: On Versed and Fentanyl, and propofol. Respiratory Acute on Chronic Hypercapnic, Hypoxic Respiratory Failure, on 3-4L O2 at home Aspiration Pneumonia Severe Pulmonary HTN Untreated ETIENNE Pickwickian Syndrome Morbid Obesity PFTs w/restrictive pattern, not COPD (2013) Tobacco Use Disorder THC Use Disorder Weaning FiO2 as tolerated. On vent - ABG PRN - Suction PRN - Hypersal and Duonebs - c/w Duoneb q6h - As patient remains vent dependant, ENT will place a trach in the OR today Cardiovascular Acute on Chronic Diastolic HF HTN | HLD Prolonged QTc - K>4, Mg>2 - Avoid QTc prolonging agents - Strict I/O - c/w ASA GI/Nutrition Elevated AST - Stress ulcer prophylaxis: PPI - Nutrition: on Pivot 1.5 tube feed - Feeds stopped in preparation for trach placement in OR today Renal/Electrolytes/Fluids Uncompensated Respiratory Acidosis - Resolved Hypernatremia - On 300 cc Q3H free water boluses - Minimizing 0.9% NaCl base solutions - c/w Bumex and Metolazone - Strict I/Os - ABG PRN - BMP QD ID - Vancomycin and Meropenem were de escalated to Unasyn and she completed all antibiotics - Urine culture negative, blood culture (-) x72 hrs, sputum culture unremarkable - Procal wnl Hematology Elevated D-Dimer Iron Deficiency Anemia Menorrhagia - Transfuse to maintain Hgb >7 - Iron supplementation once more euvolemic Endo Morbid Obesity Hirsutism Assessment: No acute concerns Plan: - A1C 5.3 - Aspart SSI q6h Dispo: MICU Prognosis: Guarded Code Status: FULL, discussed with Spouse Ac Garcia via phone [phone] Estela Forde MD PGY-1 Internal Medicine [phone] HOSPITAL COURSE: Vinnie Aguilera is a 43 year old female with ETIENNE, severe pHTN, PFTs w/restrictive pattern (2014), chronic hypoxic RF (on 3-4L O2 intermittently), Pickwickian syndrome, HTN, CHFpEF (TTE 09/2018), chronic Fe Deficiency Anemia, menorrhagia, tobacco use disorder, THC use disorder, and morbid obesity who presents from the ER for management of acute on chronic hypercapnic and hypoxic RF. ABGs were significant for increasing acidosis which was improved with subsequent intubation once on MICU floor. DVTruled out on doppler, thus CT PE not obtained as well as intermediate wells score. Diuresing agressively in the setting of acute on chronic HFpEF. Continuation of adjustment of vent settings while intubated. Fever of 100.6 36-48 hours after intubation (had vomiting after intubation). Patient was initially on Vanc + Merrem, which has de escalated to Unasyn. CBT trial failed twice. Patient now off Levophed, with good UOP, and stable vent settings. As patient could be weaned off vent, ENT will be placing a tracheotomy tube. Associated attestation - Jeovany Franco Jr., MD - 10/04/2019 1:23 PM CDTI personally examined the patient on 10/[address] Forde's resident note as written . Iactively participated in the decision-making process. Please see the resident's note for additionaldetails. Pamela Swanson LBSW - 10/03/2019 4:51 PM CDTSocial Work Note 10/03/2019 4:51 PM SW spoke with Ac Garcia at [phone] regarding plan of care and d/c planning needs. Discussedwith Ac patient will need [facility] Medicaid/SSI pending facility for trach care s/p d/c and/or d/c planning to home with /7 family care. Discussed facility that accepts may not be ideal in l ocation. Discussed not all facilities accept trach care. Ac interested in patient admitting to [facility], [address] [facility] [facility] , [place] [address], fax [phone] she works in [place]. Discussed patient may need to d/c to home with Ac nassar until funding is approved. Ac stated she is a CIVIL STRUCTURAL DESIGNER and would quit her job to care for her and be her provider. LOUISE dicussed it is importantance of her following-up with Ms. Cid in [employer] as patient would need Medicaid forTemwilfredo to become her provider. SW inquired if spouse has had discussions with [employer]. She reported she has been in contact. LOUISE provided Ac with D. A summer number to further follow-up for county and state and federal funding opportunities. LOUISE contacted [employer] and spoke with Ms. Cid regarding plan of care and greater need for assistance in funding. SW updated Leadership on plan of care and reached out to physician advisor. SW to continue to follow for d/c planning coordination. BUTCH Grace Sheet Metal Apprentice/Care Management Office [phone] [address]uisa Olea, RD - 10/03/2019 12:55 PM CDT Medical Nutrition Therapy- Progress Note: Malnutrition Assessment: Nutritional Diagnosis: None SGA Rating: Well-Nourished, Normal History of Present Illness Patient admitted due to dyspnea and acute on chronic hypercapnic and hypoxic respiratory failure dueto HF exacerbation. Patient intubated upon arrival. Shortly after intubation and sedation with propofol, patient became hypotensive requiring peripheral levophed to maintain MAP >60. Patient is also11 pack per year smoker also with marijuana use. Patient also with uncompensated respiratory acidosis, severe pulmonary hypertension, and toxic metabolic encephalopathy. NG tube placed 09/20/19. Patient also with iron deficiency. Patient also with chronic volume overload and aspiration pneumonia. Patient with toxic metabolic encephalopathy due to profound hypercapnia. GI and Nutrition Related Findings: Symptoms: N/A Difficulty: N/A GI tract alteration: N/A Alternative means of nutrition: DHT General: Edema- 1-2+ BLE pitting edema Lab and Medical Test Results: NA Date Value 10/03/2019 148 mmol/L (H) 03/19/2014 138 MMOL/L K Date Value 10/03/2019 3.8 mmol/L 03/19/2014 4.2 MMOL/L CALCIUM Date Value 10/03/2019 9.1 mg/dL 03/19/2014 9.2 MG/DL BUN Date Value 10/03/2019 41 mg/dL (H) 03/19/2014 21 MG/DL CREATININE Date Value 10/03/2019 1.20 mg/dL (H) 03/19/2014 1.25 MG/DL (H) GLUCOSE Date Value 10/03/2019 92 mg/dL 03/19/2014 88 MG/DL Ref. Range 09/20/2019 22:22 IRON Latest Ref Range: 50 - 160 ug/dL 37 (L) Weight History: Wt Readings from Last 20 Encounters: 09/28/19 219 kg (482 lb 12.9 oz) 10/06/18 225.4 kg (496 lb 14.7 oz) 05/01/18 218 kg (480 lb 9.6 oz) 06/14/16 183.7 kg (405 lb) 05/29/16 186 kg (410 lb) 10/14/15 165.9 kg (365 lb 11.2 oz) 09/07/15 165.6 kg (365 lb) 03/19/14 173.3 kg (382 lb) 03/12/14 172.8 kg (380 lb 14.4 oz) 1% weight loss in 1 year- 5 lbs Inflammatory Markers: Elevated Temp, Increased HR Current Dietary Order(s): NPO Except Meds Diet. Pivot 1.5 (1.5 kcal/mL, 25% protein, + Arginine & [place]-3) EMR documented food allergies/intolerance/cultural preferences: unable to confirm currently Nutrition & Diet History: Spoke with patient's nurse today. Per nurse, patient was not on TF today due to being out of tubing for feeds. Nurse reports she has been giving patient 300 cc fluid bolus every 3 hours to maintain hydration and about 40 cc of formula at a time. Per results review, patient with elevated Mg, Cr, Na, BUN due to JOSELUIS. Recommending switching to Nepro formula (provides lower amounts of electrolytes) untilAKI resolves then may switch back to pivot 1.5 formula. Current propofol rate provides 694 kcal/day.Please see TF recommendations below that include calories from current propofol rate and recommendations without for if patient is taken off propofol and JOSELUIS still has not resolved. Will continue to follow. Estimated Daily Nutritional Needs: Calories (Ve-8.22, Tmax-37.7): 3142 kcal/day = 14 kcal/kg current wt MSJ (w/o activity factor): 3125 kcal/day = 14 kcal/kg MSJ x 1.2: 3551 kcal/day = 16 kcal/kg Protein: 21% of kcal need/day = >165 g/day = 0.7 g/kg current wt = >2.5 g/kg IBW Fluid: <2000 mL/day or per MD; adjust per acute needs (heart failure) Nutrition Diagnosis: Inadequate oral intake related to recent intubation as evidenced by need for TF.-resolving Nutrition Plan of Care: Intervention(s): 1. Due to patient with JOSELUIS, elevated Na+, elevated Mg: Recommend switching to Nepro formula until JOSELUIS resolves: With Propofol (rate: 26.28 ml/hr): TF with Nepro at 50 ml/hr x 24 hours- 1200 ml total volume TF+ Propofol+ Beneprotein provides 3154 kcal, 169 gm protein, 2072 ml free water Recommend adding 4 packets beneprotein TID- provides 72 gm protein, 300 kcal, 1200 ml free water bolus Without Propofol: TF with Nepro at 70 ml/hr goal rate x 24 hrs- 1680 ml total volume -TF will provide 3024 kcal, 136 gm protein, 1221 ml free water -TF + Beneprotein will provide 3033 kcal, 180 gm protein, 1821 ml fluid Recommend adding 2 packets beneprotein TID- provides 36 gm protein, 150 kcal, ml fluid (50 ml flush before and after each packet) 2. Consider a minimum of 30 ml water flush every 4 hours to help prevent tube occlusions -not necessary to meet fluid needs due to patient with fluid needs meet via TF + beneprotein flush 3. Monitor glucose and electrolytes while on TF 4. Keep head of bed elevated 30-45 degrees for patient at risk for aspiration 5. Advance diet per MD/SITE PROJECT MANAGER 6. Recommend adding regimen to help with nausea/vomiting as needed 7. Consider iron supplementation -patient with iron deficiency Goal(s): 1. Patient will be able to meet 100% of protein, calorie, and fluid needs via TF. D/C Planning: Continue with current recommendations. Nutrition Monitoring and Evaluation: A registered dietitian will f/u as indicated to report nutrition related information and to revise the recommended nutrition intervention(s); please call with questions or concerns, thank-you. Marialuisa Olea MS, RD, LD Clinical Dietitian RD Office: [id number] Julian Vickers MD - 10/03/2019 10:26 AM CDTBrief MICU Note Date: 10/03/2019 10:26 ICU day: 14 Intubation Day: 14 Code Status: Full Code 12 Hour Events (should include: major events throughout the day, patient status, significant labs, radiology, consult updates): - Weaned off Versed and Fentanyl, Precedex dosed to ideal body weight and tolerated - ENT consulted for tracheostomy evaluation - Continued on Bumex 2 mg BID and metolazone 2.5 mmg PO QD Family update: - Spouse updated over phone Plan for next 12 hours (should include: anticipated events, complications to watch for, pending labs/radiology/consults): - Wean vent as tolerated - Stop tube feeds at midnight for tracheostomy in OR tomorrow - Hold AM dose of Lovenox Julian Vickers MD Internal Medicine, PGY-3 Doctor # [id number] Pager # [phone] Jazmin Mir PTA - 10/03/2019 9:32 AM CDTPTA NOTE: Attempted to see patient in AM however per RN patient is currently not following commands and is continuing to desat while on current vent settings (MD aware). Supervising PT notified of patient's current status. PT to hold at this time and will continue to monitor patient's status per EPIC and POCR in hopes to resume functional mobility training if/when patient's status permits. Thank you. Jazmin Mir PTA Supervising PT Som Gastelum Estela Fine MD - 10/03/2019 1:00 AM CDT MICU Progress Note Date of Service: 10/03/2019 01:00 Reason for ICU admission: Acute Hypercapnic Hypoxic Respiratory Failure ICU Day: 11 Intubation Day: 11 Code Status: Full Last 24 hour events (major events): - Bumex and metolazone resumed - Off abx - NGT cleared for use, however, hospital out of feeds. - Free water boluses through the NGT Subjective: Remains intubated. Not agitated Ventilator Bundle: Sedation/Analgesia + RASS: propofol, fentanyl, Versed 1-10 mg/hr, RASS 0 to -1 Stress ulcer prophylaxis: PPI enteral DVT prophylaxis: heparin Insulin drip: no Nutrition: Tube feeds started Lines (with dates): A-line right radial 09/21/19 Midline 10/01/19 NG tube 09/21/19 Intake/Output: Intake/Output Summary (Last 24 hours) at 10/03/2019 0100 Last data filed at 10/03/2019 0000 Gross per 24 hour Intake 2277.6 ml Output 1875 ml Net 402.6 ml Physical Exam: Temp: [36.4 C (97.5 F)-38.3 C (100.9 F)] Heart Rate (monitor): [77-113] Pulse: [75-123] Resp: [16-23] BP: (97-156)/(48-96) Arterial Line BP: (84-120)/(38-61) MAP (mmHg): [62-111] MAP: [51 mmHg-78 mmHg] Constitutional: Intubated and in no acute distress HEENT: PERRL Resp: CTA bilaterally on anterior lung hirsch Cardio: RRR with no audible murmur GI: Soft to palpation Labs (pertinent only)/Imaging: Recent Labs 09/27/19 0313 09/28/19 0248 09/29/19 0347 09/30/19 0317 10/02/19 0355 WBC 11.15* 8.52 8.74 9.74 9.16 HGB 7.4* 7.1* 7.4* 7.1* 7.2* HCT 33.0* 30.7* 32.4* 30.6* 31.4* MCV 77.3* 77.3* 77.9* 79.3* 81.8 PLT 177 186 213 282 415* Recent Labs 09/28/19 0248 09/29/19 0347 09/30/19 0317 09/30/19 2215 10/01/19 0518 10/01/19 1634 10/02/19 0355 NA 144 < > 146* < > 145 147* 149* 150* 149* K 3.7 < > 4.0 < > 4.1 3.7 3.4* 3.8 3.7 CA 8.9 < > 9.3 < > 9.0 8.9 9.0 9.0 9.1 CL 100 < > 100 < > 102 103 103 106 107 BUN 31* < > 35* < > 41* 45* 44* 42* 39* CREAT 0.96 < > 1.17* < > 1.12* 1.30* 1.33* 1.22* 1.17* GLU 104 < > 103 < > 104 105 101 104 100 TCO2 39* < > 37* < > 34* 40* 38* 38* 39* MG 2.0 -- 2.1 -- 2.3 -- 2.5* -- 2.6* < > = values in this interval not displayed. Recent Labs 10/04/18 1652 09/20/192 09/30/197 ALB 3.1* 3.7 3.1* TPRO 6.6 7.8 7.5 BILIT 0.5 0.6 1.0 BILIUNCON 0.2 -- 0.6 BILICONJ 0.0 -- 0.0 ALT 18 19 11 AST 28 45* 51* ALKPHOS 44 60 46 Recent Labs 09/20/192221 PTINR 1.3 PTPAT 14.3* APTTPAT 27 Assessment/Plan: Vinnie Aguilera is a 43 year old female admitted to the MICU with acute on chronic hypercapnic & hypoxic respiratory failure secondary to acute HFpEF exacerbation and untreated ETIENNE/OHS Neuro Toxic Metabolic Encephalopathy 2/2 Profound Hypercapnia THC Use Disorder Patient obtunded upon arrival to MICU 2/2 Mikey >160. Patient follows commands. - Sedation/Analgesia: On Versed and Fentanyl, and propofol. Respiratory Acute on Chronic Hypercapnic, Hypoxic Respiratory Failure, on 3-4L O2 at home Aspiration Pneumonia Severe Pulmonary HTN Untreated ETIENNE Pickwickian Syndrome Morbid Obesity PFTs w/restrictive pattern, not COPD (2013) Tobacco Use Disorder THC Use Disorder Weaning FiO2 as tolerated. On vent - ABG PRN - Suction PRN - Hypersal and Duonebs - c/w Duoneb q6h - c/w pulmonary toilet, will attempt to wean vent Cardiovascular Acute on Chronic Diastolic HF HTN | HLD Prolonged QTc - K>4, Mg>2 - Avoid QTc prolonging agents - Strict I/O - c/w ASA GI/Nutrition Elevated AST Patient w/elevated AST but otherwise LFTs wnl. No h/o EtOH use. Patient had an episode of emesis. Nothing on NG suction. Will hold tube feeds for now. - Stress ulcer prophylaxis: PPI - Nutrition: on Pivot 1.5 tube feed (unable to resume at this time given hospital is out of feeds) - c/w trickle feed Renal/Electrolytes/Fluids Uncompensated Respiratory Acidosis - Resolved Hypernatremia - On 300 cc Q3H free water boluses - Minimizing 0.9% NaCl base solutions - Bumex and Metolazone resumed - Strict I/Os - ABG PRN - BMP QD ID No focal consolidation, skin rash. Had hypotension after propofol was given, however will obtain pancultures. Continues to have fevers with Tmax 101.8. Will broaden antibiotics, repeat cultures, and continue to monitor for signs of infection. - Continue Vancomycin and Meropenem were de escalated to Unasyn - Urine culture negative, blood culture (-) x72 hrs, sputum culture unremarkable - Procal wnl Hematology Elevated D-Dimer Iron Deficiency Anemia Menorrhagia Patient w/known menorrhagia and severe Fe Deficiency 1 year OCCUP THER. Unsure if taking PO Fe. Hgb 6.9 on admit, will f/u and transfuse if <7. Venous doppler did not show bilateral DVT - Transfuse to maintain Hgb >7 - Iron supplementation once more euvolemic Endo Morbid Obesity Hirsutism Assessment: No acute concerns Plan: - A1C 5.3 - Aspart SSI q6h Dispo: MICU Prognosis: Guarded Code Status: FULL, discussed with Spouse Ac Garcia via phone [phone] Estela Forde MD PGY-1 Internal Medicine [phone] HOSPITAL COURSE: Vinnie Aguilera is a 43 year old female with ETIENNE, severe pHTN, PFTs w/restrictive pattern (2013), chronic hypoxic RF (on 3-4L O2 intermittently), Pickwickian syndrome, HTN, CHFpEF (TTE 09/2018), chronic Fe Deficiency Anemia, menorrhagia, tobacco use disorder, THC use disorder, and morbid obesity who presents from the ER for management of acute on chronic hypercapnic and hypoxic RF. ABGs were significant for increasing acidosis which was improved with subsequent intubation once on MICU floor. DVTruled out on doppler, thus CT PE not obtained as well as intermediate wells score. Diuresing agressively in the setting of acute on chronic HFpEF. Continuation of adjustment of vent settings while intubated. Fever of 100.6 36-48 hours after intubation (had vomiting after intubation). Patient was initially on Vanc + Merrem, which has de escalated to Unasyn. CBT trial failed twice. Patient now off Levophed, with good UOP, and stable vent settings. Associated attestation - Jeovany Franco Jr., MD - 10/03/2019 11:46 AM CDTI personally examined the patient on 10/[address] Forde's resident note as written . Iactively participated in the decision-making process. Please see the resident's note for additionaldetails. Leonardo Bautista RN - 10/02/2019 5:01 PM CDTCare Management Continued Stay Assessment LOS Day: 11 Estimated /Planned Discharge Date: 10/09/19 MICU female 43 year old Date CM/SW last Face to Face completed with patient/family: 09/24 Funding source: Payor: MEDICAID PENDING / Plan: MEDICAID PENDING / Product Type: Pending / Insurance DC planner internship: [place] PCP:[facility] Patient/Family/MPOA/Caregiver Engaged with Transitional Care Plan: yes Patient/Family/MPOA/Caregiver concurs with proposed discharge plan: yes Name, Relationship to Patient and contact number of individual acting on behalf of the patient: spouse Ac Garcia [phone] Chief Complaint/Admitting Dx:RESP FAILURE Hospital Problems: Hypercapnic respiratory failure Summary of hospital course: Vinnie Aguilera is a 43 year old female withOSA, severe pHTN,PFTs w/restrictive pattern (2013),chronic hypoxic RF (on 3-4L O2 intermittently),Pickwickian syndrome, HTN, CHFpEF (TTE 09/2018), chronicFe Deficiency Anemia, menorrhagia, tobacco use disorder, THC use disorder,and morbid obesitywho presents from the ER for management of acute on chronic hypercapnic and hypoxic RF. ABGs were significant for increasing acidosis which was improved with subsequentintubation once on MICU floor. DVT ruled out on doppler, thus CT PE not obtained as well as intermediate wells score. Diuresing agressively in the setting of acute on chronic HFpEF. Continuation of adjustment of vent settings while intubated. Fever of 100.6 36- 48 hours after intubation (had vomiting after intubation). Patient was initially on Vanc + Merrem, which has de escalated to Unasyn. CBT trialfailed twice. Patient now off Levophed, with good UOP, and stable vent settings. CM/SW Interventions/Resources provided: SFA, Initial DC planning. Per spouse She reported patient resides in the home with spouse, cousin, mother and brother. 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 Pt received a paycheck in the month of September. Pt uses o2 concentrator with baseline of 3-4 liters. Prior to admission patient was independent. Pt does not have a PCP and uses local ER for medical care. Per spouse, patient only takes a diuretic which is affordable. Spouse requested SW to call back a later time as she was heading into work. Referred to [facility] and Patient matters. County resources were provided and rx coupon card. CM/SW Interventions/Resources still needed: Will continue to monitor for DC planning. Anticipated Discharge Destination: Intermediate If DC to home, who will support patient: spouse, Ac Garcia, brother, and cousin. Anticipated DME needs: TBD. Pt owns a concentrator and has portable tanks. Pt uses [facility]. Referrals sent: not applicable If no, why/when will referral be sent:: patient is currently ventilated at this time Has patient been accepted: not applicable Revised plan if not accepted: D/c To home with family support What is the clinical care happening right now that must be done in the hospital and only the hospital: diurisis and weaning vent. CHEVY Pickett, RN Revenue Accountant [facility] Care Management [email or web address]) Main Taylor MD - 10/02/2019 3:01 PM CDTBrief MICU Note Date: 10/02/2019 15:01 ICU day: 11 Intubation Day: 11 12 Hour Events: - t max of 38.1 - Resumed bumex with metolazone 2.5 - Na peaked at 150 - had midlines placed x 2 and pulled RIJ - stopped antibiotics - agitated overnight and started on propofol in addition to fent/versed Family Update: Updated spouse Plan for the Next 12 Hours: - continue to monitor i/os - f/up bmp - wean vent setting as tolerated Bay Taylor M.D. Internal Medicine PGY-3 [facility]'s Team Doctor # [id number] Pager # [phone] Estela Forde MD - 10/02/2019 1:40 AM CDT MICU Progress Note Date of Service: 10/02/2019 01:40 Reason for ICU admission: Acute Hypercapnic Hypoxic Respiratory Failure ICU Day: 10 Intubation Day: 10 Code Status: Full Last 24 hour events (major events): - Off and on febrile - Midline placed x2 and RIJ was pulled - Managing hypernatremia - Diuretics holiday - Free water boluses increased to 300 cc Q3H due to hypernatremia Subjective: Remains intubated Ventilator Bundle: Sedation/Analgesia + RASS: fentanyl, Versed 1-10 mg/hr, RASS 0 to -1 Stress ulcer prophylaxis: PPI enteral DVT prophylaxis: heparin Insulin drip: no Nutrition: Tube feeds started Lines (with dates): A-line right radial 09/21/19 Midline 10/01/19 NG tube 09/21/19 Intake/Output: Intake/Output Summary (Last 24 hours) at 10/02/2019 0140 Last data filed at 10/02/2019 0000 Gross per 24 hour Intake 1242.25 ml Output 1925 ml Net -682.75 ml Physical Exam: Temp: [37.6 C (99.7 F)-38.2 C (100.8 F)] Heart Rate (monitor): [88-103] Pulse: [88-104] Resp: [20-38] BP: (111-142)/(61-88) Arterial Line BP: (90-106)/(48-59) MAP (mmHg): [75-104] MAP: [62 mmHg-72 mmHg] Constitutional: Intubated, in no acute distress HEENT: PERRL Resp: CTA bilaterally on anterior lung hirsch Cardio: RRR with no audible murmur GI: Soft to palpation MSK: Trace to 1+ pitting edema Labs (pertinent only)/Imaging: Recent Labs 09/26/19 0343 09/27/19 0313 09/28/19 0248 09/29/19 0347 09/30/19 0317 WBC 8.30 11.15* 8.52 8.74 9.74 HGB 7.5* 7.4* 7.1* 7.4* 7.1* HCT 33.5* 33.0* 30.7* 32.4* 30.6* MCV 77.4* 77.3* 77.3* 77.9* 79.3* PLT 140* 177 186 213 282 Recent Labs 09/27/19 0313 09/28/19 0248 09/29/19 0347 09/29/19 1633 09/30/19 0317 09/30/19 2215 10/01/19 0518 10/01/19 1634 NA 145 < > 144 < > 146* 148* 145 147* 149* 150* K 3.5 < > 3.7 < > 4.0 4.1 4.1 3.7 3.4* 3.8 CA 8.9 < > 8.9 < > 9.3 9.3 9.0 8.9 9.0 9.0 CL 98 < > 100 < > 100 101 102 103 103 106 BUN 29* < > 31* < > 35* 39* 41* 45* 44* 42* CREAT 1.00 < > 0.96 < > 1.17* 1.26* 1.12* 1.30* 1.33* 1.22* GLU 122* < > 104 < > 103 105 104 105 101 104 TCO2 44* < > 39* < > 37* 40* 34* 40* 38* 38* MG 2.0 -- 2.0 -- 2.1 -- 2.3 -- 2.5* -- < > = values in this interval not displayed. Recent Labs 10/04/18 1652 09/20/19 2222 09/30/19 0317 ALB 3.1* 3.7 3.1* TPRO 6.6 7.8 7.5 BILIT 0.5 0.6 1.0 BILIUNCON 0.2 -- 0.6 BILICONJ 0.0 -- 0.0 ALT 18 19 11 AST 28 45* 51* ALKPHOS 44 60 46 Recent Labs 09/20/192221 PTINR 1.3 PTPAT 14.3* APTTPAT 27 Assessment/Plan: Vinnie Aguilera is a 43 year old female admitted to the MICU with acute on chronic hypercapnic & hypoxic respiratory failure secondary to acute HFpEF exacerbation and untreated ETIENNE/OHS Neuro Toxic Metabolic Encephalopathy 2/2 Profound Hypercapnia THC Use Disorder Patient obtunded upon arrival to MICU 2/2 Mikey >160. Patient follows commands. - Sedation/Analgesia: On Versed and Fentanyl. - Versed's base solution changed to D5W given worsening hypernatremia - Titrate to RAAS -2 - Agitated overnight with increase in sedation requirement Respiratory Acute on Chronic Hypercapnic, Hypoxic Respiratory Failure, on 3-4L O2 at home Aspiration Pneumonia Severe Pulmonary HTN Untreated ETIENNE Pickwickian Syndrome Morbid Obesity PFTs w/restrictive pattern, not COPD (2013) Tobacco Use Disorder THC Use Disorder Weaning FiO2 as tolerated. On vent - ABG PRN - Suction PRN - Hypersal and Duonebs - c/w Duoneb q6h - c/w pulmonary toilet, will attempt to wean vent Cardiovascular Acute on Chronic Diastolic HF HTN | HLD Prolonged QTc - K>4, Mg>2 - Avoid QTc prolonging agents - Strict I/O - c/w ASA GI/Nutrition Elevated AST Patient w/elevated AST but otherwise LFTs wnl. No h/o EtOH use. Patient had an episode of emesis. Nothing on NG suction. Will hold tube feeds for now. - Stress ulcer prophylaxis: PPI - Nutrition: on Pivot 1.5 tube feed - c/w trickle feed Renal/Electrolytes/Fluids Uncompensated Respiratory Acidosis - Resolved Hypernatremia - Increase in free water boluses - Minimizing 0.9% NaCl base solutions - Will try to resume diuretics again tomorrow (for now she is on diuretics holiday) - Strict I/Os - ABG PRN - BMP QD ID No focal consolidation, skin rash. Had hypotension after propofol was given, however will obtain pancultures. Continues to have fevers with Tmax 101.8. Will broaden antibiotics, repeat cultures, and continue to monitor for signs of infection. - Continue Vancomycin and Meropenem were de escalated to Unasyn - Urine culture negative, blood culture (-) x72 hrs, sputum culture unremarkable - Procal wnl Hematology Elevated D-Dimer Iron Deficiency Anemia Menorrhagia Patient w/known menorrhagia and severe Fe Deficiency 1 year OCCUP THER. Unsure if taking PO Fe. Hgb 6.9 on admit, will f/u and transfuse if <7. Venous doppler did not show bilateral DVT - Transfuse to maintain Hgb >7 - Iron supplementation once more euvolemic Endo Morbid Obesity Hirsutism Assessment: No acute concerns Plan: - A1C 5.3 - Aspart SSI q6h Dispo: MICU Prognosis: Guarded Code Status: FULL, discussed with Spouse Ac Garcia via phone [phone] Estela Forde MD PGY-1 Internal Medicine [phone] HOSPITAL COURSE: Vinnie Aguilera is a 43 year old female with ETIENNE, severe pHTN, PFTs w/restrictive pattern (2013), chronic hypoxic RF (on 3-4L O2 intermittently), Pickwickian syndrome, HTN, CHFpEF (TTE 09/2018), chronic Fe Deficiency Anemia, menorrhagia, tobacco use disorder, THC use disorder, and morbid obesity who presents from the ER for management of acute on chronic hypercapnic and hypoxic RF. ABGs were significant for increasing acidosis which was improved with subsequent intubation once on MICU floor. DVTruled out on doppler, thus CT PE not obtained as well as intermediate wells score. Diuresing agressively in the setting of acute on chronic HFpEF. Continuation of adjustment of vent settings while intubated. Fever of 100.6 36-48 hours after intubation (had vomiting after intubation). Patient was initially on Vanc + Merrem, which has de escalated to Unasyn. CBT trial failed twice. Patient now off Levophed, with good UOP, and stable vent settings. Associated attestation - Jeovany Franco Jr., MD - 10/02/2019 11:39 AM CDTI personally examined the patient on 10/[address] Forde's resident note as written . Iactively participated in the decision-making process. Please see the resident's note for additionaldetails. Main Taylor MD - 10/01/2019 7:50 AM CDTBrief MICU Note Date: 10/01/2019 07:50 ICU day: 10 Intubation Day: 10 12 Hour Events: - t max of 38.5 - diuretic holiday; will resume bumex with metolazone 2.5 - 1 g of dextran - had midlines placed x 2 and pulled RIJ Family Update: Updated spouse Plan for the Next 12 Hours: - continue to monitor i/os - monitor creatinine - wean vent setting as tolerated Bay Taylor M.D. Internal Medicine PGY-3 [facility]'s Team Doctor # [id number] Pager # [phone] Estela Forde MD - 10/01/2019 12:38 AM CDT MICU Progress Note Date of Service: 10/01/2019 00:39 Reason for ICU admission: Acute Hypercapnic Hypoxic Respiratory Failure ICU Day: 10 Intubation Day: 10 Code Status: Full Last 24 hour events (major events): - Weaning vent setting as tolerated= - Bumex at 2 mg BID - De escalating abx to Unasyn - Repeat CXR demonstrating improved pulm edema Subjective: Remains intubated, appears comfortable on the bed Ventilator Bundle: Sedation/Analgesia + RASS: fentanyl, Versed 1-10 mg/hr, RASS 0 to -1 Stress ulcer prophylaxis: PPI enteral DVT prophylaxis: heparin Insulin drip: no Nutrition: Tube feeds started Lines (with dates): A-line right radial 09/21/19 Right IJ CVC Triple lumen 09/21/19 Gleason: Urethral Catheter single lumen 09/21/19 NG tube 09/21/19 Intake/Output: Intake/Output Summary (Last 24 hours) at 10/01/2019 0039 Last data filed at 10/01/2019 0000 Gross per 24 hour Intake 694.4 ml Output 1900 ml Net -1205.6 ml Physical Exam: Temp: [37.9 C (100.2 F)-38.6 C (101.5 F)] Heart Rate (monitor): [90-105] Pulse: [90-107] Resp: [20-41] BP: (102-117)/(55-69) Arterial Line BP: (81-112)/(36-88) MAP (mmHg): [67-84] MAP: [50 mmHg-94 mmHg] Constitutional: Intubated, intermittently awake HEENT: PERRL Resp: CTA clear on bilateral lung hirsch anteriorly Cardio: RRR with no audible murmur GI: Soft to palpation MSK: 1-2+ pitting edema bilaterally Labs (pertinent only)/Imaging: Recent Labs 09/26/19 0343 09/27/19 0313 09/28/19 0248 09/29/19 0347 09/30/19 0317 WBC 8.30 11.15* 8.52 8.74 9.74 HGB 7.5* 7.4* 7.1* 7.4* 7.1* HCT 33.5* 33.0* 30.7* 32.4* 30.6* MCV 77.4* 77.3* 77.3* 77.9* 79.3* PLT 140* 177 186 213 282 Recent Labs 09/26/19 1552 09/27/19 0313 09/28/19 0248 09/28/19 1427 09/29/19 0347 09/29/19 1633 09/30/19 0317 09/30/19 2215 NA 145 145 < > 144 147* 146* 148* 145 147* K 3.6 3.5 < > 3.7 4.2 4.0 4.1 4.1 3.7 CA 9.0 8.9 < > 8.9 9.2 9.3 9.3 9.0 8.9 CL 96* 98 < > 100 101 100 101 102 103 BUN 28* 29* < > 31* 34* 35* 39* 41* 45* CREAT 1.01 1.00 < > 0.96 1.06* 1.17* 1.26* 1.12* 1.30* GLU 118* 122* < > 104 105 103 105 104 105 TCO2 44* 44* < > 39* 38* 37* 40* 34* 40* MG 2.1 2.0 -- 2.0 -- 2.1 -- 2.3 -- < > = values in this interval not displayed. Recent Labs 10/04/18 1652 09/20/19222109/30/19316 ALB 3.1* 3.7 3.1* TPRO 6.6 7.8 7.5 BILIT 0.5 0.6 1.0 BILIUNCON 0.2 -- 0.6 BILICONJ 0.0 -- 0.0 ALT 18 19 11 AST 28 45* 51* ALKPHOS 44 60 46 Recent Labs 09/20/192221 PTINR 1.3 PTPAT 14.3* APTTPAT 27 Microbiology: Bcx 09/26/19: NG 72 Hours Assessment/Plan: Vinnie Aguilera is a 43 year old female admitted to the MICU with acute on chronic hypercapnic & hypoxic respiratory failure secondary to acute HFpEF exacerbation and untreated ETIENNE/OHS Neuro Toxic Metabolic Encephalopathy 2/2 Profound Hypercapnia THC Use Disorder Patient obtunded upon arrival to MICU 2/2 Mikey >160. Patient follows commands. - Sedation/Analgesia: On Versed and Fentanyl. - Titrate to RAAS -2 Respiratory Acute on Chronic Hypercapnic, Hypoxic Respiratory Failure, on 3-4L O2 at home Aspiration Pneumonia Severe Pulmonary HTN Untreated ETIENNE Pickwickian Syndrome Morbid Obesity PFTs w/restrictive pattern, not COPD (2013) Tobacco Use Disorder THC Use Disorder Weaning FiO2 as tolerated. On vent - ABG PRN - Suction PRN - Hypersal and Duonebs - c/w Duoneb q6h - c/w pulmonary toilet, will attempt to wean vent Cardiovascular Acute on Chronic Diastolic HF HTN | HLD Prolonged QTc - Bumex 2 mg BID - K>4, Mg>2 - Avoid QTc prolonging agents - Strict I/O - c/w ASA GI/Nutrition Elevated AST Patient w/elevated AST but otherwise LFTs wnl. No h/o EtOH use. Patient had an episode of emesis. Nothing on NG suction. Will hold tube feeds for now. - Stress ulcer prophylaxis: PPI - Nutrition: on Pivot 1.5 tube feed - c/w trickle feed Renal/Electrolytes/Fluids Uncompensated Respiratory Acidosis - Resolved Hypernatremia Free water deficit 800 mL for goal Na of 145. Tube feeds on hold due to episode of vomiting. Will give D5w and continue to follow BMP. - Strict I/Os - ABG PRN - BMP QD ID No focal consolidation, skin rash. Had hypotension after propofol was given, however will obtain pancultures. Continues to have fevers with Tmax 101.8. Will broaden antibiotics, repeat cultures, and continue to monitor for signs of infection. - Continue Vancomycin and Meropenem were de escalated to Unasyn - Urine culture negative, blood culture (-) x72 hrs, sputum culture unremarkable - Procal wnl Hematology Elevated D-Dimer Iron Deficiency Anemia Menorrhagia Patient w/known menorrhagia and severe Fe Deficiency 1 year OCCUP THER. Unsure if taking PO Fe. Hgb 6.9 on admit, will f/u and transfuse if <7. Venous doppler did not show bilateral DVT - Transfuse to maintain Hgb >7 - Iron supplementation once more euvolemic Endo Morbid Obesity Hirsutism Assessment: No acute concerns Plan: - A1C 5.3 - Aspart SSI q6h Dispo: MICU Prognosis: Guarded Code Status: FULL, discussed with Spouse Ac Garcia via phone [phone] Estela Forde MD PGY-1 Internal Medicine [phone] HOSPITAL COURSE: Vinnie Aguilera is a 43 year old female with ETIENNE, severe pHTN, PFTs w/restrictive pattern (2013), chronic hypoxic RF (on 3-4L O2 intermittently), Pickwickian syndrome, HTN, CHFpEF (TTE 09/2018), chronic Fe Deficiency Anemia, menorrhagia, tobacco use disorder, THC use disorder, and morbid obesity who presents from the ER for management of acute on chronic hypercapnic and hypoxic RF. ABGs were significant for increasing acidosis which was improved with subsequent intubation once on MICU floor. DVTruled out on doppler, thus CT PE not obtained as well as intermediate wells score. Diuresing agressively in the setting of acute on chronic HFpEF. Continuation of adjustment of vent settings while intubated. Fever of 100.6 36-48 hours after intubation (had vomiting after intubation). Patient was initially on Vanc + Merrem, which has de escalated to Unasyn. CBT trial failed twice. Patient now off Levophed, with good UOP, and decreasing vent settings. Associated attestation - Jeovany Franco Jr., MD - 10/01/2019 11:33 AM CDTI personally examined the patient on 09/[address] Forde's resident note as written . Iactively participated in the decision-making process. Please see the resident's note for additionaldetails. Main Taylor MD - 09/30/2019 3:57 PM CDTBrief MICU Note Date: 09/30/2019 15:57 ICU day: 10 Intubation Day: 10 12 Hour Events: - t max of 38.5 - decreased bumex to 2 mg BID - tolerated trickle feeds - deescalated abx to unasyn - repeat cxr demonstrating improved pulm edema Family Update: Updated spouse; spouse ok with trach if needed Plan for the Next 12 Hours: - continue to monitor i/os - f/up cultures - wean vent setting as tolerated - continue pulmonary toilet and O2 requirements; attempt to wean vent as tolerated; may need trach next week Bay Taylor M.D. Internal Medicine PGY-3 [facility]'s Team Doctor # [id number] Pager # [phone] Marialuisa Olea, RD - 09/30/2019 2:26 PM CDT Medical Nutrition Therapy- Progress Note: Malnutrition Assessment: Nutritional Diagnosis: None SGA Rating: Well-Nourished, Normal History of Present Illness Patient admitted due to dyspnea and acute on chronic hypercapnic and hypoxic respiratory failure dueto HF exacerbation. Patient intubated upon arrival. Shortly after intubation and sedation with propofol, patient became hypotensive requiring peripheral levophed to maintain MAP >60. Patient is also11 pack per year smoker also with marijuana use. Patient also with uncompensated respiratory acidosis, severe pulmonary hypertension, and toxic metabolic encephalopathy. NG tube placed 09/20/19. Patient also with iron deficiency. Patient also with chronic volume overload and aspiration pneumonia. Patient with toxic metabolic encephalopathy due to profound hypercapnia. GI and Nutrition Related Findings: Symptoms: N/A Difficulty: N/A GI tract alteration: N/A Alternative means of nutrition: DHT General: Edema- 1-2+ BLE pitting edema Lab and Medical Test Results: NA Date Value 09/30/2019 145 mmol/L 03/19/2014 138 MMOL/L K Date Value 09/30/2019 4.1 mmol/L 03/19/2014 4.2 MMOL/L CALCIUM Date Value 09/30/2019 9.0 mg/dL 03/19/2014 9.2 MG/DL BUN Date Value 09/30/2019 41 mg/dL (H) 03/19/2014 21 MG/DL CREATININE Date Value 09/30/2019 1.12 mg/dL (H) 03/19/2014 1.25 MG/DL (H) GLUCOSE Date Value 09/30/2019 104 mg/dL 03/19/2014 88 MG/DL Ref. Range 09/20/2019 22:22 IRON Latest Ref Range: 50 - 160 ug/dL 37 (L) Weight History: Wt Readings from Last 20 Encounters: 09/28/19 219 kg (482 lb 12.9 oz) 10/06/18 225.4 kg (496 lb 14.7 oz) 05/01/18 218 kg (480 lb 9.6 oz) 06/14/16 183.7 kg (405 lb) 05/29/16 186 kg (410 lb) 10/14/15 165.9 kg (365 lb 11.2 oz) 09/07/15 165.6 kg (365 lb) 03/19/14 173.3 kg (382 lb) 03/12/14 172.8 kg (380 lb 14.4 oz) 1% weight loss in 1 year- 5 lbs Inflammatory Markers: Elevated Temp, Increased HR Current Dietary Order(s): NPO Except Meds Diet. Pivot 1.5 (1.5 kcal/mL, 25% protein, + Arginine & [place]-3) EMR documented food allergies/intolerance/cultural preferences: unable to confirm currently Nutrition & Diet History: Per MD note, patient with episode of emesis and high residuals so NG tube was held. Trickle feeds are now started. Patient also with JOSELUIS per results showing elevated Cr and BUN levels. Electrolytes arecurrently normal. May consider adding nausea/vomiting medication to help limit emesis. Per nurse, patient started on protonix. Trickle feeds are currently running at 10 ml/hr per nurse. RD provided alternative TF recommendations below with lower goal rate as needed. RD will continue to follow. Estimated Daily Nutritional Needs: Calories (Ve-10.3, Tmax-38.1): 3272 kcal/day = 15 kcal/kg current wt = 50 kcal/kg IBW MSJ (w/o activity factor): 3125 kcal/day = 14 kcal/kg MSJ x 1.2: 3551 kcal/day = 16 kcal/kg Protein: 21% of kcal need/day = >165 g/day = 0.7 g/kg current wt = >2.5 g/kg IBW Fluid: <2000 mL/day or per MD; adjust per acute needs (heart failure) Nutrition Diagnosis: Inadequate oral intake related to recent intubation as evidenced by need for TF.-resolving Nutrition Plan of Care: Intervention(s): 1. Continue TF with Pivot 1.5 at 90 ml/hr goal rate x 24 hours- 2160 ml total volume -TF will provide 3240 kcal, 203 gm protein, 1639 ml free water 2. Recommend a minimum of 30 ml water flush every 4 hours to help prevent tube occlusions -If no IVF, recommend 45 ml water flush every hours to help meet fluid needs (Tf+flush will [id number] ml fluid)-adjust as needed 3. Monitor glucose and electrolytes while on TF 4. Keep head of bed elevated 30-45 degrees for patient at risk for aspiration 5. Advance diet per MD/SITE PROJECT MANAGER 6. Recommend adding regimen to help with nausea/vomiting 7. If emesis continues may consider switching to TwoCal HN Formula Goal Rate: 60 ml/hr Provides 2880 kcal, 120 gm protein, 1008 ml free water Add 3 packets Beneprotein TID- provides 54 gm protein, 225 kcal, ml fluid (50 ml before and after each packet) TF+ Beneprotein will provide 3105 kcal, 174 gm protein, 1908 ml fluid 7. Consider iron supplementation -patient with iron deficiency Goal(s): 1. Patient will be able to meet 100% of protein, calorie, and fluid needs via TF. D/C Planning: Continue with current recommendations. Nutrition Monitoring and Evaluation: A registered dietitian will f/u as indicated to report nutrition related information and to revise the recommended nutrition intervention(s); please call with questions or concerns, thank-you. Marialuisa Olea MS, RD, LD Clinical Dietitian RD Office: [phone] Estela Forde MD - 09/30/2019 12:13 AM CDT MICU Progress Note Date of Service: 09/30/2019 00:18 Reason for ICU admission: Acute Hypercapnic Hypoxic Respiratory Failure ICU Day: 9 Intubation Day: 9 Code Status: Full Last 24 hour events (major events): - Weaning vent setting as tolerated, weaned PEEP to 12 - Trickle feed started - Net negative 16L since admission, Aldactone added Subjective: Remains intubated, appears comfortable on the bed Ventilator Bundle: Sedation/Analgesia + RASS: fentanyl, Versed 1-10 mg/hr, RASS 0 to -1 Stress ulcer prophylaxis: PPI enteral DVT prophylaxis: heparin Insulin drip: no Nutrition: Tube feeds started Lines (with dates): A-line right radial 09/21/19 Right IJ CVC Triple lumen 09/21/19 Gleason: Urethral Catheter single lumen 09/21/19 NG tube 09/21/19 Intake/Output: Intake/Output Summary (Last 24 hours) at 09/30/2019 0018 Last data filed at 09/30/2019 0000 Gross per 24 hour Intake 2107.85 ml Output 2675 ml Net -567.15 ml Physical Exam: Temp: [37.1 C (98.8 F)-37.8 C (100 F)] Heart Rate (monitor): [96-113] Pulse: [94-113] Resp: [19-26] Arterial Line BP: (101-130)/(59-78) MAP: [75 mmHg-93 mmHg] Constitutional: Intubated, appears comfortable HEENT: PERRL Resp: CTA on frontal chest hirsch Cardio: RRR with no audible murmur GI: Soft and non-tender to palpation MSK: 1-2+ pitting edema bilaterally Integ: no rashes Labs (pertinent only)/Imaging: Recent Labs 09/25/1931709/26/1934209/27/1931209/28/19 0248 09/29/19 0347 WBC 7.76 8.30 11.15* 8.52 8.74 HGB 7.4* 7.5* 7.4* 7.1* 7.4* HCT 33.0* 33.5* 33.0* 30.7* 32.4* MCV 76.4* 77.4* 77.3* 77.3* 77.9* PLT 123* 140* 177 186 213 Recent Labs 09/26/19 0343 09/26/19 1552 09/27/19 0313 09/27/19 1719 09/28/19 0248 09/28/19 1427 09/29/19 0347 09/29/19 1633 NA 145 145 145 146* 144 147* 146* 148* K 3.8 3.6 3.5 3.8 3.7 4.2 4.0 4.1 CA 8.7 9.0 8.9 8.8 8.9 9.2 9.3 9.3 CL 95* 96* 98 100 100 101 100 101 BUN 31* 28* 29* 30* 31* 34* 35* 39* CREAT 0.97 1.01 1.00 1.07* 0.96 1.06* 1.17* 1.26* GLU 130* 118* 122* 116* 104 105 103 105 TCO2 43* 44* 44* 42* 39* 38* 37* 40* MG 2.3 2.1 2.0 -- 2.0 -- 2.1 -- Recent Labs 10/04/18 1652 09/20/19 2222 ALB 3.1* 3.7 TPRO 6.6 7.8 BILIT 0.5 0.6 BILIUNCON 0.2 -- BILICONJ 0.0 -- ALT 18 19 AST 28 45* ALKPHOS 44 60 Recent Labs 09/20/19 2222 PTINR 1.3 PTPAT 14.3* APTTPAT 27 Microbiology: Bcx 09/26/19: NG 72 Hours Assessment/Plan: Vinnie Aguilera is a 43 year old female admitted to the MICU with acute on chronic hypercapnic & hypoxic respiratory failure secondary to acute HFpEF exacerbation and untreated ETIENNE/OHS Neuro Toxic Metabolic Encephalopathy 2/2 Profound Hypercapnia THC Use Disorder Patient obtunded upon arrival to MICU 2/2 Mikey >160. Patient follows commands. - Sedation/Analgesia: On Versed and Fentanyl. - Titrate to RAAS -2 Respiratory Acute on Chronic Hypercapnic, Hypoxic Respiratory Failure, on 3-4L O2 at home Aspiration Pneumonia Severe Pulmonary HTN Untreated ETIENNE Pickwickian Syndrome Morbid Obesity PFTs w/restrictive pattern, not COPD (2014) Tobacco Use Disorder THC Use Disorder Weaning FiO2 as tolerated. PEEP at 14. - ABG PRN - Suction PRN - Vent: PEEP 12, FiO2 40%, goal of PEEP of 8, FiO2 of 40 - Hypersal and Duonebs - c/w Duoneb q6h - c/w pulmonary toilet Cardiovascular Acute on Chronic Diastolic HF HTN | HLD Prolonged QTc Patient with net output of negative 16L since admission and -800 cc in past 24 hours. Creatinine is uptrending. Increase Bumex to 3 mg Q8H. - Switch Lasix to Bumex 3mg Q8H - K>4, Mg>2 - Avoid QTc prolonging agents - Strict I/O - c/w ASA GI/Nutrition Elevated AST Patient w/elevated AST but otherwise LFTs wnl. No h/o EtOH use. Patient had an episode of emesis. Nothing on NG suction. Will hold tube feeds for now. - Stress ulcer prophylaxis: PPI - Nutrition: on Pivot 1.5 tube feed - Trickle feed started Renal/Electrolytes/Fluids Uncompensated Respiratory Acidosis - Resolved Hypernatremia Free water deficit 800 mL for goal Na of 145. Tube feeds on hold due to episode of vomiting. Will give D5w and continue to follow BMP. - Strict I/Os - ABG PRN - BMP QD ID No focal consolidation, skin rash. Had hypotension after propofol was given, however will obtain pancultures. Continues to have fevers with Tmax 101.8. Will broaden antibiotics, repeat cultures, and continue to monitor for signs of infection. - Continue Vancomycin and Meropenem for now - Urine culture negative, blood culture (-) x72 hrs, sputum culture unremarkable - Procal wnl Hematology Elevated D-Dimer Iron Deficiency Anemia Menorrhagia Patient w/known menorrhagia and severe Fe Deficiency 1 year OCCUP THER. Unsure if taking PO Fe. Hgb 6.9 on admit, will f/u and transfuse if <7. Venous doppler did not show bilateral DVT - Transfuse to maintain Hgb >7 - Iron supplementation once more euvolemic Endo Morbid Obesity Hirsutism Assessment: No acute concerns Plan: - A1C 5.3 - Aspart SSI q6h Dispo: MICU Prognosis: Guarded Code Status: FULL, discussed with Spouse Ac Garcia via phone [phone] Estela Forde MD PGY-1 Internal Medicine [phone] HOSPITAL COURSE: Vinnie Aguilera is a 43 year old female with ETIENNE, severe pHTN, PFTs w/restrictive pattern (2013), chronic hypoxic RF (on 3-4L O2 intermittently), Pickwickian syndrome, HTN, CHFpEF (TTE 09/2018), chronic Fe Deficiency Anemia, menorrhagia, tobacco use disorder, THC use disorder, and morbid obesity who presents from the ER for management of acute on chronic hypercapnic and hypoxic RF. ABGs were significant for increasing acidosis which was improved with subsequent intubation once on MICU floor. DVTruled out on doppler, thus CT PE not obtained as well as intermediate wells score. Diuresing agressively in the setting of acute on chronic HFpEF. Continuation of adjustment of vent settings while intubated. Fever of 100.6 36-48 hours after intubation (had vomiting after intubation), started Unasyn for aspiration pneumonia which she finished. CBT trial failed twice. Patient now off Levophed, with good UOP, and decreasing vent settings. Associated attestation - Jeovany Franco Jr., MD - 09/30/2019 11:46 AM CDTI personally examined the patient on 09/[address] Cloud's resident note as written . I actively participated in the decision-making process. Please see the resident's note for additional details. Patient with morbid obesity and chronic volume overload, now complicated by aspiration pneumonia. Cultures negative for resistant organisms, will deescalate and continue diuresis as tolerated. Main Taylor MD - 09/29/2019 7:31 PM CDTBrief MICU Note Date: 09/29/2019 19:31 ICU day: 9 Intubation Day: 9 12 Hour Events: - afebrile over past 48 hrs - net neg 16 L over admission, added aldactone 25 mg; creatine trending up - started trickle feeds - weaned PEEP to 12; repeat ABG pO2 at 78 Family Update: Updated spouse Plan for the Next 12 Hours: - continue to monitor i/os - f/up cultures - wean vent setting as tolerated - continue pulmonary toilet and O2 requirements; attempt to wean vent as tolerated; may need trach next week Bay Taylor M.D. Internal Medicine PGY-3 [facility]'s Team Doctor # [id number] Pager # [phone] Estela Forde MD - 09/29/2019 12:03 AM CDT MICU Progress Note Date of Service: 09/29/2019 00:03 Reason for ICU admission: Acute Hypercapnic Hypoxic Respiratory Failure ICU Day: 9 Intubation Day: 9 Code Status: Full Last 24 hour events (major events): - Adequate UOP on Bumex - Off levophed - Continuing with pulmonary toilet - Adjusting vent setting as needed Subjective: Remains intubated, appears uncomfortable Ventilator Bundle: Sedation/Analgesia + RASS: fentanyl, Versed 1-10 mg/hr, RASS 0 to -1 Stress ulcer prophylaxis: PPI enteral DVT prophylaxis: heparin Insulin drip: no Nutrition: Tube feeds started Lines (with dates): A-line right radial 09/21/19 Right IJ CVC Triple lumen 09/21/19 Gleason: Urethral Catheter single lumen 09/21/19 NG tube 09/21/19 Intake/Output: Intake/Output Summary (Last 24 hours) at 09/29/2019 0003 Last data filed at 09/28/2019 2200 Gross per 24 hour Intake 2540 ml Output 2490 ml Net 50 ml Physical Exam: Temp: [36.5 C (97.7 F)-37.2 C (99 F)] Heart Rate (monitor): [90-101] Pulse: [89-108] Resp: [11-28] Arterial Line BP: (100-145)/(54-70) MAP: [68 mmHg-93 mmHg] Constitutional: Intubated, appears comfortable HEENT: PERRL Resp: Clear to auscultation on frontal chest hirsch Cardio: RRR with no audible murmur GI: soft; non-tender; non-distended; normoactive bowel sounds, large pannus with mid abdominal scar MSK: 2-3+ pitting edema on BLE Integ: no rashes Labs (pertinent only)/Imaging: Recent Labs 09/24/19 0334 09/25/19 0318 09/26/19 0343 09/27/19 0313 09/28/19 0248 WBC 7.45 7.76 8.30 11.15* 8.52 HGB 6.8* 7.4* 7.5* 7.4* 7.1* HCT 31.1* 33.0* 33.5* 33.0* 30.7* MCV 75.3* 76.4* 77.4* 77.3* 77.3* PLT 118* 123* 140* 177 186 Recent Labs 09/25/19 0318 09/26/19 0343 09/26/19 1552 09/27/19 0313 09/27/19 1719 09/28/19 0248 09/28/19 1427 NA 143 < > 145 145 145 146* 144 147* K 3.8 < > 3.8 3.6 3.5 3.8 3.7 4.2 CA 8.7 < > 8.7 9.0 8.9 8.8 8.9 9.2 CL 95* < > 95* 96* 98 100 100 101 BUN 26* < > 31* 28* 29* 30* 31* 34* CREAT 0.91 < > 0.97 1.01 1.00 1.07* 0.96 1.06* GLU 116* < > 130* 118* 122* 116* 104 105 TCO2 44* < > 43* 44* 44* 42* 39* 38* MG 2.2 -- 2.3 2.1 2.0 -- 2.0 -- < > = values in this interval not displayed. Recent Labs 10/04/18 1652 09/20/19 2222 ALB 3.1* 3.7 TPRO 6.6 7.8 BILIT 0.5 0.6 BILIUNCON 0.2 -- BILICONJ 0.0 -- ALT 18 19 AST 28 45* ALKPHOS 44 60 Recent Labs 09/20/19 2222 PTINR 1.3 PTPAT 14.3* APTTPAT 27 Microbiology: Bcx 09/26/19: NG 48 Hours Assessment/Plan: Vinnie Aguilera is a 43 year old female admitted to the MICU with acute on chronic hypercapnic & hypoxic respiratory failure secondary to acute HFpEF exacerbation and untreated ETIENNE/OHS Neuro Toxic Metabolic Encephalopathy 2/2 Profound Hypercapnia THC Use Disorder Patient obtunded upon arrival to MICU 2/2 Mikey >160. Patient follows commands. - Sedation/Analgesia: On Versed and Fentanyl. - Titrate to RAAS -2 Respiratory Acute on Chronic Hypercapnic, Hypoxic Respiratory Failure, on 3-4L O2 at home Aspiration Pneumonia Severe Pulmonary HTN Untreated ETIENNE Pickwickian Syndrome Morbid Obesity PFTs w/restrictive pattern, not COPD (2014) Tobacco Use Disorder THC Use Disorder Weaning FiO2 as tolerated. PEEP at 14. - ABG PRN - Suction PRN - Vent: PEEP 14, FiO2 40%, goal of PEEP of 8, FiO2 of 40 - Hypersal and Duonebs - c/w Duoneb q6h - c/w pulmonary toilet Cardiovascular Acute on Chronic Diastolic HF HTN | HLD Prolonged QTc Patient with net output of negative 15L since admission and -1.8 L in past 24 hours. Creatinine is stable. Increase Bumex to 3 mg Q8H. K was 3.6 and was repleted with IV K. - Switch Lasix to Bumex 3mg Q8H - K>4, Mg>2 - Avoid QTc prolonging agents - Strict I/O - c/w ASA GI/Nutrition Elevated AST Patient w/elevated AST but otherwise LFTs wnl. No h/o EtOH use. Patient had an episode of emesis. Nothing on NG suction. Will hold tube feeds for now. - Stress ulcer prophylaxis: PPI - Nutrition: on Pivot 1.5 tube feed Renal/Electrolytes/Fluids Uncompensated Respiratory Acidosis - Resolved Hypernatremia Free water deficit 800 mL for goal Na of 145. Tube feeds on hold due to episode of vomiting. Will give D5w and continue to follow BMP. - Strict I/Os - ABG PRN - BMP QD ID No focal consolidation, skin rash. Had hypotension after propofol was given, however will obtain pancultures. Continues to have fevers with Tmax 101.8. Will broaden antibiotics, repeat cultures, and continue to monitor for signs of infection. - Continue Vancomycin and Meropenem for now - Urine culture negative, blood culture (-) x48 hrs, sputum culture unremarkable - Procal wnl Hematology Elevated D-Dimer Iron Deficiency Anemia Menorrhagia Patient w/known menorrhagia and severe Fe Deficiency 1 year OCCUP THER. Unsure if taking PO Fe. Hgb 6.9 on admit, will f/u and transfuse if <7. Venous doppler did not show bilateral DVT - Transfuse to maintain Hgb >7 - Iron supplementation once more euvolemic Endo Morbid Obesity Hirsutism Assessment: No acute concerns Plan: - A1C 5.3 - Aspart SSI q6h Dispo: MICU Prognosis: Guarded Code Status: FULL, discussed with Spouse Ac Garcia via phone [phone] Estela Forde MD PGY-1 Internal Medicine [phone] HOSPITAL COURSE: Vinnie Aguilera is a 43 year old female with ETIENNE, severe pHTN, PFTs w/restrictive pattern (2013), chronic hypoxic RF (on 3-4L O2 intermittently), Pickwickian syndrome, HTN, CHFpEF (TTE 09/2018), chronic Fe Deficiency Anemia, menorrhagia, tobacco use disorder, THC use disorder, and morbid obesity who presents from the ER for management of acute on chronic hypercapnic and hypoxic RF. ABGs were significant for increasing acidosis which was improved with subsequent intubation once on MICU floor. DVTruled out on doppler, thus CT PE not obtained as well as intermediate wells score. Diuresing agressively in the setting of acute on chronic HFpEF. Continuation of adjustment of vent settings while intubated. Fever of 100.6 36-48 hours after intubation (had vomiting after intubation), started Unasyn for aspiration pneumonia which she finished. CBT trial failed twice. Patient now off Levophed, with good UOP, and decreasing vent settings. Associated attestation - Mustapha Carpenter MD - 09/29/2019 8:37 AM CDTI personally examined the patient on 09/29/[address] Forde's resident note as written . I actively participated in the decision-making process. Please see the resident's note for additional details. Main Taylor MD - 09/28/2019 2:06 PM CDTBrief MICU Note Date: 09/28/2019 14:06 ICU day: 8 Intubation Day: 8 12 Hour Events: - afebrile over past 24 hrs - good uop with bumex at 3 mg q8h - off norepi - cultures negative to date Family Update: Updated spouse Plan for the Next 12 Hours: - continue to monitor i/os - f/up cultures - wean vent setting as tolerated - continue pulmonary toilet and O2 requirements; attempt to wean vent as tolerated; may need trach next week Bay Taylor M.D. Internal Medicine PGY-3 [facility]'s Team Doctor # [id number] Pager # [phone] Precious Paz, DO - 09/28/2019 2:45 AM CDT MICU Progress Note Date of Service: 09/28/2019 02:45 Reason for ICU admission: Acute Hypercapnic Hypoxic Respiratory Failure ICU Day: 8 Intubation Day: 8 Code Status: Full Last 24 hour events (major events): - Afebrile overnight - Bumex increased to 3 mg Q8H - Weaning down Levophed as tolerated - patient rolled and had significant hypoxia, titrated vent back up to PEEP 14/FIO2 of 100% - cultures negative to date Subjective: Intubated Ventilator Bundle: Sedation/Analgesia + RASS: fentanyl, Versed 1-10 mg/hr, RASS 0 to -1 Stress ulcer prophylaxis: PPI enteral DVT prophylaxis: heparin Insulin drip: no Nutrition: Tube feeds started Lines (with dates): Left antecubital PIV 09/20/19 Left PIV 09/21/19 Right IJ CVC Triple lumen 09/21/19 Gleason: Urethral Catheter single lumen 09/20/19 NG tube 09/20/19 Intake/Output: Intake/Output Summary (Last 24 hours) at 09/28/2019 0245 Last data filed at 09/28/2019 0200 Gross per 24 hour Intake 2917.65 ml Output 3600 ml Net -682.35 ml Physical Exam: Temp: [36.5 C (97.7 F)-38.5 C (101.3 F)] Heart Rate (monitor): [83-101] Pulse: [82-103] Resp: [20-27] Arterial Line BP: (89-150)/(44-78) MAP: [60 mmHg-99 mmHg] Constitutional: Intubated HEENT: normocephalic atraumatic, pupils equal, round, reactive to light Resp: clear to auscultation bilaterally, large body habitus Cardio: S1, S2 normal; no murmurs, rubs or gallops, regular rate and rhythm GI: soft; non-tender; non-distended; normoactive bowel sounds, large pannus with mid abdominal scar MSK: 3+ pitting edema Integ: no rashes Neuro: sedated Psych: sedated Labs (pertinent only)/Imaging: Results for VINNIE AGUILERA ( ) as of 09/21/2019 22:47 09/20/2019 23:15 09/21/2019 02:25 09/21/2019 04:52 09/21/2019 09:28 09/21/2019 15:00 PH ART 7.34 (L) 6.96 (LL) 7.40 7.51 (H) 7.45 PCO2 ART 75 (H) >160 (H) 67 (H) 52 (H) 60 (H) PO2 ART 54 (L) 97 79 (L) 56 (L) 87 HCO3 ART 39 (H) 40 (H) 41 (H) 41 (H) 41 (H) Hgb 7.4 Microbiology: Bcx 09/22/19: NG 72 Hours Assessment/Plan: Vinnie Aguilera is a 43 year old female admitted to the MICU with acute on chronic hypercapnic & hypoxic respiratory failure secondary to acute HFpEF exacerbation and untreated ETIENNE/OHS Neuro Toxic Metabolic Encephalopathy 2/2 Profound Hypercapnia THC Use Disorder Patient obtunded upon arrival to MICU 2/2 Mikey >160. Patient follows commands. - Sedation/Analgesia: On Versed and Fentanyl. - Titrate to RAAS -2 Respiratory Acute on Chronic Hypercapnic, Hypoxic Respiratory Failure, on 3-4L O2 at home Aspiration Pneumonia Severe Pulmonary HTN Untreated ETIENNE Pickwickian Syndrome Morbid Obesity PFTs w/restrictive pattern, not COPD (2013) Tobacco Use Disorder THC Use Disorder Weaned FiO2 down to 45%. PEEP staying at 14. - ABG PRN - Suction PRN - Vent: PEEP 14, FiO2 40%, goal of PEEP of 8, FiO2 of 40 - Hypersal and Duonebs - c/w Duoneb q6h Cardiovascular Acute on Chronic Diastolic HF HTN | HLD Prolonged QTc Patient with net output of negative 15L since admission and -1.8 L in past 24 hours. Creatinine is stable. Increase Bumex to 3 mg Q8H. K was 3.6 and was repleted with IV K. - Switch Lasix to Bumex 2mg Q8H - K>4, Mg>2 - Avoid QTc prolonging agents - Strict I/O - Pressors (mcg/kg/min): Restarted Levophed. Map > 65 - c/w ASA GI/Nutrition Elevated AST Patient w/elevated AST but otherwise LFTs wnl. No h/o EtOH use. Patient had an episode of emesis. Nothing on NG suction. Will hold tube feeds for now. - Stress ulcer prophylaxis: PPI - Nutrition: Tube feeds on Hold Renal/Electrolytes/Fluids Uncompensated Respiratory Acidosis - Resolved Hypernatremia Free water deficit 800 mL for goal Na of 145. Tube feeds on hold due to episode of vomiting. Will give D5w and continue to follow BMP. - D5W 500 mL at 50ml/hr - Strict I/Os - ABG PRN - BMP QD ID No focal consolidation, skin rash. Had hypotension after propofol was given, however will obtain pancultures. Continues to have fevers with Tmax 101.8. Will broaden antibiotics, repeat cultures, and continue to monitor for signs of infection. - Antibiotic(s): Vancomycin/Meropenem - Continue Vancomycin and Meropenem - Repeat Urine Cultures, Sputum Cultures, Blood Cultures. - Procal wnl - MRSA/MSSA swab negative Hematology Elevated D-Dimer Iron Deficiency Anemia Menorrhagia Patient w/known menorrhagia and severe Fe Deficiency 1 year OCCUP THER. Unsure if taking PO Fe. Hgb 6.9 on admit, will f/u and transfuse if <7. Venous doppler did not show bilateral DVT - Transfuse to maintain Hgb >7 - Iron studies - Give IV Fe if deficient and infection r/o'ed - Iron supplementation once more euvolemic Endo Morbid Obesity Hirsutism Assessment: No acute concerns Plan: - A1C 5.3 - Aspart SSI q6h Other DVT prophylaxis: heparin Lines/Catheters: 20G L Antecubital PIV, 09/20/2019 L Anterior Arm PIV, 09/21/2019 L Radial A-Line, 09/21/2019 Gleason: 09/21/2019 Dispo: MICU Prognosis: Guarded Code Status: FULL, discussed with Spouse Ac Garcia via phone [phone] Precious Paz DO Internal Medicine, PGY-1 [facility] Team Pager# [phone] HOSPITAL COURSE: Vinnie Aguilera is a 43 year old female with ETIENNE, severe pHTN, PFTs w/restrictive pattern (2013), chronic hypoxic RF (on 3-4L O2 intermittently), Pickwickian syndrome, HTN, CHFpEF (TTE 09/2018), chronic Fe Deficiency Anemia, menorrhagia, tobacco use disorder, THC use disorder, and morbid obesity who presents from the ER for management of acute on chronic hypercapnic and hypoxic RF. ABGs were significant for increasing acidosis which was improved with subsequent intubation once on MICU floor. DVTruled out on doppler, thus CT PE not obtained as well as intermediate wells score. Diuresing agressively in the setting of acute on chronic HFpEF. Continuation of adjustment of vent settings while intubated. Fever of 100.6 36-48 hours after intubation (had vomiting after intubation), started Unasyn for aspiration pneumonia. CBT trial failed twice. Associated attestation - Mustapha Carpenter MD - 09/28/2019 8:53 AM CDTI personally examined the patient on 09/28/[address] Paz's resident note as written . I actively participated in the decision-making process. Please see the resident's note for additional details. Main Taylor MD - 09/27/2019 4:35 PM CDTBrief MICU Note Date: 09/27/2019 16:35 ICU day: 7 Intubation Day: 7 12 Hour Events: - continues to have low grade fevers on merrem/vanc - increased bumex to 3 mg q8h - weaning down levophed as tolerated - patient rolled and had significant hypoxia, titrated vent back up to PEEP 14/FIO2 of 100% - hypersal and duonebs started (patient with increased secretions) - cultures negative to date Family Update: Updated spouse Plan for the Next 12 Hours: - monitor for UOP - f/up cultures - continue pulmonary toilet and O2 requirements; attempt to wean vent as tolerated; may need trach next week Bay Taylor M.D. Internal Medicine PGY-3 [facility]'s Team Doctor # [id number] Pager # [phone] Pamela Swanson LBSW - 09/27/2019 10:26 AM CDTSocial Work Note 09/27/2019 10:26 AM SW attempted to contact spouse, Ac Garcia at [phone] in regards to follow-up from previous conversation in terms of support, and community resources for d/c planning. SW unable to leave message as "mailbox is full". SW to continue to attempt to make contact. Update 10:51 am SW spoke with Ginny. She reported patient will have 24/ care in the home with extended family members. 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 LOUISE introduced to Ginny that [employer] will call with additional information needed for [facility], state and federal funding. Ginny expressed appreciation for call and information. BUTCH Grace [employer] Apprentice/Care Management Office [phone] Precious Birch DO - 09/27/2019 3:30 AM CDT MICU Progress Note Date of Service: 09/27/2019 03:30 Reason for ICU admission: Acute Hypercapnic Hypoxic Respiratory Failure ICU Day: 7 Intubation Day: 7 Code Status: Full Last 24 hour events (major events): - low grade temps overnight with Tmax of 101.8 F this afternoon, abx broadened to freida/vanc - CXR done this AM continues to show signs of congestion, switched from lasix to bumex IV 2 mg Q8H - patient continued to have episodes of agitation, started on levophed to allow for uptitration of fentanyl/versed - repeat CXR showed ETT terminating above nelson at thoracic inlet, advanced additional 2 cm by RT - hypersal and duonebs started (patient with increased secretions) Subjective: Intubated Ventilator Bundle: Sedation/Analgesia + RASS: fentanyl, Versed 1-10 mg/hr, RASS 0 to -1 Stress ulcer prophylaxis: PPI enteral DVT prophylaxis: heparin Insulin drip: no Nutrition: Tube feeds started Lines (with dates): Left antecubital PIV 09/20/19 Left PIV 09/21/19 Right IJ CVC Triple lumen 09/21/19 Gleason: Urethral Catheter single lumen 09/20/19 NG tube 09/20/19 Intake/Output: Intake/Output Summary (Last 24 hours) at 09/27/2019 0330 Last data filed at 09/27/2019 0200 Gross per 24 hour Intake 2181.95 ml Output 3025 ml Net -843.05 ml Physical Exam: Temp: [37.8 C (100 F)-38.8 C (101.8 F)] Heart Rate (monitor): [86-107] Pulse: [86-106] Resp: [15-30] Arterial Line BP: (94-161)/(41-95) MAP: [57 mmHg-121 mmHg] POCT Blood Glucose (manual): [104 mg/dL] Constitutional: Intubated HEENT: normocephalic atraumatic, pupils equal, round, reactive to light Resp: clear to auscultation bilaterally, large body habitus Cardio: S1, S2 normal; no murmurs, rubs or gallops, regular rate and rhythm GI: soft; non-tender; non-distended; normoactive bowel sounds, large pannus with mid abdominal scar MSK: 3+ pitting edema Integ: no rashes Neuro: sedated Psych: sedated Labs (pertinent only)/Imaging: Results for VINNIE AGUILERA ( ) as of 09/21/2019 22:47 09/20/2019 23:15 09/21/2019 02:25 09/21/2019 04:52 09/21/2019 09:28 09/21/2019 15:00 PH ART 7.34 (L) 6.96 (LL) 7.40 7.51 (H) 7.45 PCO2 ART 75 (H) >160 (H) 67 (H) 52 (H) 60 (H) PO2 ART 54 (L) 97 79 (L) 56 (L) 87 HCO3 ART 39 (H) 40 (H) 41 (H) 41 (H) 41 (H) Hgb 7.4 CXR: IMPRESSION Moderate interval improvement in the aeration of the lungs especially on the right side in comparison to prior with improvement in the bilateral interstitial and airspace opacities. Microbiology: Bcx 09/22/19: NG 72 Hours Assessment/Plan: Vinnie Aguilera is a 43 year old female admitted to the MICU with acute on chronic hypercapnic & hypoxic respiratory failure secondary to acute HFpEF exacerbation and untreated ETIENNE/OHS Neuro Toxic Metabolic Encephalopathy 2/2 Profound Hypercapnia THC Use Disorder Patient obtunded upon arrival to MICU 2/2 Mikey >160. Patient follows commands. - Sedation/Analgesia: On Versed and Fentanyl. - Titrate to RAAS -2 Respiratory Acute on Chronic Hypercapnic, Hypoxic Respiratory Failure, on 3-4L O2 at home Aspiration Pneumonia Severe Pulmonary HTN Untreated ETIENNE Pickwickian Syndrome Morbid Obesity PFTs w/restrictive pattern, not COPD (2013) Tobacco Use Disorder THC Use Disorder Failure to wean PEEP or FiO2 down. Had to increase PEEP to 14 and FiO2 to 50 %. Did not do SBT today. - ABG PRN - Suction PRN - Vent: PEEP 14, FiO2 50%, goal of PEEP of 8, FiO2 of 40 - Hypersal and Duonebs - c/w Duoneb q6h Cardiovascular Acute on Chronic Diastolic HF HTN | HLD Prolonged QTc Patient with net output of negative 15L since admission and -1.2 L in past 24 hours. Creatinine is stable. CXR continues to show congestion with mild improvement. Will change Lasix to Bumex 2mg Q8. K was 3.6 and was repleted with IV K. - Switch Lasix to Bumex 2mg Q8H - K>4, Mg>2 - Avoid QTc prolonging agents - Strict I/O - Pressors (mcg/kg/min): Restarted Levophed. Map > 65 - c/w ASA GI/Nutrition Elevated AST Patient w/elevated AST but otherwise LFTs wnl. No h/o EtOH use. No acute concerns - Stress ulcer prophylaxis: PPI - Nutrition: Tube feeds started Renal/Electrolytes/Fluids Uncompensated Respiratory Acidosis - Resolved - Strict I/Os - ABG PRN - BMP QD ID No focal consolidation, skin rash. Had hypotension after propofol was given, however will obtain pancultures. Continues to have fevers with Tmax 101.8. Will broaden antibiotics, repeat cultures, and continue to monitor for signs of infection. - Antibiotic(s): Vancomycin/Meropenem - D/C Unasyn - Start Vancomycin and Meropenem - Repeat Urine Cultures, Sputum Cultures, Blood Cultures. - Procal wnl - MRSA/MSSA swab negative Hematology Elevated D-Dimer Iron Deficiency Anemia Menorrhagia Patient w/known menorrhagia and severe Fe Deficiency 1 year OCCUP THER. Unsure if taking PO Fe. Hgb 6.9 on admit, will f/u and transfuse if <7. Venous doppler did not show bilateral DVT - Transfuse to maintain Hgb >7 - Iron studies - Give IV Fe if deficient and infection r/o'ed - Iron supplementation once more euvolemic Endo Morbid Obesity Hirsutism Assessment: No acute concerns Plan: - A1C 5.3 - Aspart SSI q6h Other DVT prophylaxis: heparin Lines/Catheters: 20G L Antecubital PIV, 09/20/2019 L Anterior Arm PIV, 09/21/2019 L Radial A-Line, 09/21/2019 Gleason: 09/21/2019 Dispo: MICU Prognosis: Guarded Code Status: FULL, discussed with Spouse Ac Garcia via phone [phone] Precious Paz, DO Internal Medicine, PGY-1 [place] Team Pager# [phone] HOSPITAL COURSE: Vinnie Aguilera is a 43 year old female with ETIENNE, severe pHTN, PFTs w/restrictive pattern (2013), chronic hypoxic RF (on 3-4L O2 intermittently), Pickwickian syndrome, HTN, CHFpEF (TTE 09/2018), chronic Fe Deficiency Anemia, menorrhagia, tobacco use disorder, THC use disorder, and morbid obesity who presents from the ER for management of acute on chronic hypercapnic and hypoxic RF. ABGs were significant for increasing acidosis which was improved with subsequent intubation once on MICU floor. DVTruled out on doppler, thus CT PE not obtained as well as intermediate wells score. Diuresing agressively in the setting of acute on chronic HFpEF. Continuation of adjustment of vent settings while intubated. Fever of 100.6 36-48 hours after intubation (had vomiting after intubation), started Unasyn for aspiration pneumonia. CBT trial failed twice. Associated attestation - Mustapha Carpenter MD - 09/27/2019 8:22 AM CDTI personally examined the patient on 09/27/[address] Paz's resident note as written . I actively participated in the decision-making process. Please see the resident's note for additional details. Liz Krueger MD - 09/26/2019 5:37 PM CDTBrief MICU Note Date: 09/26/2019 17:37 ICU day: 6 Intubation Day: 6 12 Hour Events: - low grade temps overnight with Tmax of 100.8 F this morning, abx broadened to freida/vanc - CXR done this AM continues to show signs of congestion, switched from lasix to bumex IV 2 mg Q8H - patient continued to have episodes of agitation, started on levophed to allow for uptitration of fentanyl/versed - repeat CXR showed ETT terminating above nelson at thoracic inlet, advanced additional 2 cm by RT - hypersal and duonebs started (patient with increased secretions) - fever with temp of 101.4 this afternoon Family Update: Attempted to update spouse but she did not answer call. Updated patient's cousin, Nadiya Aguilera. Plan for the Next 12 Hours: - f/u repeat BCx, urine, and sputum cxs - continue aggressive diuresis, goal Na >150 or Cr >1.80 - continue pulmonary toilet Liz Krueger MD PGY-2, [facility] Team Doctor's Number: [id number] Marialuisa Stroud RD - 09/26/2019 1:39 PM CDT Medical Nutrition Therapy- Progress Note: Malnutrition Assessment: Nutritional Diagnosis: None SGA Rating: Well-Nourished, Normal History of Present Illness Patient admitted due to dyspnea and acute on chronic hypercapnic and hypoxic respiratory failure dueto HF exacerbation. Patient intubated upon arrival. Shortly after intubation and sedation with propofol, patient became hypotensive requiring peripheral levophed to maintain MAP >60. Patient is also11 pack per year smoker also with marijuana use. Patient also with uncompensated respiratory acidosis, severe pulmonary hypertension, and toxic metabolic encephalopathy. NG tube placed 09/20/19. Patient also with iron deficiency. GI and Nutrition Related Findings: Symptoms: N/A Difficulty: N/A GI tract alteration: N/A Alternative means of nutrition: DHT General: Edema- 3+ BLE pitting edema Lab and Medical Test Results: NA Date Value 09/26/2019 145 mmol/L 03/19/2014 138 MMOL/L K Date Value 09/26/2019 3.8 mmol/L 03/19/2014 4.2 MMOL/L CALCIUM Date Value 09/26/2019 8.7 mg/dL 03/19/2014 9.2 MG/DL BUN Date Value 09/26/2019 31 mg/dL (H) 03/19/2014 21 MG/DL CREATININE Date Value 09/26/2019 0.97 mg/dL 03/19/2014 1.25 MG/DL (H) GLUCOSE Date Value 09/26/2019 130 mg/dL (H) 03/19/2014 88 MG/DL Ref. Range 09/26/2019 03:43 HGB Latest Ref Range: 11.6 - 15.0 g/dL 7.5 (L) Ref. Range 09/26/2019 03:43 MCV Latest Ref Range: 80.6 - 95.5 fL 77.4 (L) Ref. Range 09/20/2019 22:22 IRON Latest Ref Range: 50 - 160 ug/dL 37 (L) Weight History: Wt Readings from Last 20 Encounters: 09/21/19 223 kg (491 lb 10 oz) 10/06/18 225.4 kg (496 lb 14.7 oz) 05/01/18 218 kg (480 lb 9.6 oz) 06/14/16 183.7 kg (405 lb) 05/29/16 186 kg (410 lb) 10/14/15 165.9 kg (365 lb 11.2 oz) 09/07/15 165.6 kg (365 lb) 03/19/14 173.3 kg (382 lb) 03/12/14 172.8 kg (380 lb 14.4 oz) 1% weight loss in 1 year- 5 lbs Inflammatory Markers: Elevated Temperature (>99.5F), Hyperglycemia and Increased HR (>90) Current Dietary Order(s): NPO Except Meds Diet. Pivot 1.5 (1.5 kcal/mL, 25% protein, + Arginine & [place]-3) EMR documented food allergies/intolerance/cultural preferences: unable to confirm currently Nutrition & Diet History: Spoke with patient's nurse today in room. Per nurse, patient's tube feed was paused overnight and during visit RN was actually about to restart feeds. RN reports planning to increase feeds slowly over time to make sure patient is tolerating adequately. Per RN, patient with no bowel movement within thelast 3 days. Recommend adding stool softener to help encourage bowel movement. RD will continue to follow. Estimated Daily Nutritional Needs: Calories (Ve-6.63, Tmax-38.2): 3214 kcal/day = 14 kcal/kg current wt = 48 kcal/kg IBW MSJ (w/o activity factor): 3125 kcal/day = 14 kcal/kg MSJ x 1.2: 3551 kcal/day = 16 kcal/kg Protein: 21% of kcal need/day = >165 g/day = 0.7 g/kg current wt = >2.5 g/kg IBW Fluid: <2000 mL/day or per MD; adjust per acute needs (heart failure) Nutrition Diagnosis: Inadequate oral intake related to recent intubation as evidenced by need for TF.-resolving Nutrition Plan of Care: Intervention(s): 1. Continue TF with Pivot 1.5 at 90 ml/hr goal rate x 24 hours- 2160 ml total volume -TF will provide 3240 kcal, 203 gm protein, 1639 ml free water 2. Recommend a minimum of 30 ml water flush every 4 hours to help prevent tube occlusions -If no IVF, recommend 45 ml water flush every hours to help meet fluid needs (Tf+flush will [id number] ml fluid)-adjust as needed 3. Monitor glucose and electrolytes while on TF 4. Keep head of bed elevated 30-45 degrees for patient at risk for aspiration 5. Advance diet per MD/SITE PROJECT MANAGER 6. Recommending adding stool softener No BM in 3 days per RN 7. Consider iron supplementation -patient with iron deficiency Goal(s): 1. Patient will be able to meet 100% of protein, calorie, and fluid needs via TF. D/C Planning: Continue with current recommendations. Nutrition Monitoring and Evaluation: A registered dietitian will f/u as indicated to report nutrition related information and to revise the recommended nutrition intervention(s); please call with questions or concerns, thank-you. Marialuisa Olea MS, RD, LD Clinical Dietitian RD Office: [phone] Precious Paz, - 09/26/2019 1:47 AM CDT MICU Progress Note Date of Service: 09/26/2019 01:47 Reason for ICU admission: Acute Hypercapnic Hypoxic Respiratory Failure ICU Day: 6 Intubation Day: 6 Code Status: Full Last 24 hour events (major events): - output 2.7 L yesterday, net negative 761 cc - low grade temp of 100.4 this morning but WBC WNL and BCx NGTD - remains on ventilator (FiO2 45, PEEP 10) - Cr remaining stable (0.94 -> 0.91) - Continues to have low-grade fevers with Tmax 100.6. Will continue Unasyn. Subjective: Intubated Ventilator Bundle: Sedation/Analgesia + RASS: fentanyl, Versed 1-10 mg/hr, RASS 0 to -1 Stress ulcer prophylaxis: PPI enteral DVT prophylaxis: heparin Insulin drip: no Nutrition: Tube feeds started Lines (with dates): Left antecubital PIV 09/20/19 Left PIV 09/21/19 Right IJ CVC Triple lumen 09/21/19 Gleason: Urethral Catheter single lumen 09/20/19 NG tube 09/20/19 Intake/Output: Intake/Output Summary (Last 24 hours) at 09/26/2019 0147 Last data filed at 09/26/2019 0000 Gross per 24 hour Intake 1016.6 ml Output 2710 ml Net -1693.4 ml Physical Exam: Temp: [37.9 C (100.2 F)-38.1 C (100.6 F)] Heart Rate (monitor): [97-111] Pulse: [97-111] Resp: [15-17] Arterial Line BP: (91-109)/(46-53) MAP: [59 mmHg-68 mmHg] Constitutional: Intubated HEENT: normocephalic atraumatic, pupils equal, round, reactive to light Resp: clear to auscultation bilaterally, large body habitus Cardio: S1, S2 normal; no murmurs, rubs or gallops, regular rate and rhythm GI: soft; non-tender; non-distended; normoactive bowel sounds, large pannus with mid abdominal scar MSK: 3+ pitting edema Integ: no rashes Neuro: sedated Psych: sedated Labs (pertinent only)/Imaging: Results for VINNIE AGUILERA ( ) as of 09/21/2019 22:47 09/20/2019 23:15 09/21/2019 02:25 09/21/2019 04:52 09/21/2019 09:28 09/21/2019 15:00 PH ART 7.34 (L) 6.96 (LL) 7.40 7.51 (H) 7.45 PCO2 ART 75 (H) >160 (H) 67 (H) 52 (H) 60 (H) PO2 ART 54 (L) 97 79 (L) 56 (L) 87 HCO3 ART 39 (H) 40 (H) 41 (H) 41 (H) 41 (H) Hgb 7.4 Microbiology: Bcx 09/22/19: NG 72 Hours Assessment/Plan: Vinnie Aguilera is a 43 year old female admitted to the MICU with acute on chronic hypercapnic & hypoxic respiratory failure secondary to acute HFpEF exacerbation and untreated ETIENNE/OHS Neuro Toxic Metabolic Encephalopathy 2/2 Profound Hypercapnia THC Use Disorder Patient obtunded upon arrival to MICU 2/2 Mikey >160. Patient follows commands. - Sedation/Analgesia: On Versed and Fentanyl. - Titrate to RAAS -2 Respiratory Acute on Chronic Hypercapnic, Hypoxic Respiratory Failure, on 3-4L O2 at home Aspiration Pneumonia Severe Pulmonary HTN Untreated ETIENNE Pickwickian Syndrome Morbid Obesity PFTs w/restrictive pattern, not COPD (2013) Tobacco Use Disorder THC Use Disorder Failure to wean PEEP or FiO2 down. Continued with PEEP 10 and FiO2 45 %. Did not do SBT today. - Continue Unasyn - ABG PRN - Suction PRN - Vent: PEEP 10, FiO2 45%, goal of PEEP of 8, FiO2 of 40 - c/w Duoneb q6h Cardiovascular Acute on Chronic Diastolic HF HTN | HLD Prolonged QTc Patient diuresing well with net negative 14L since admission and -1.7 L in past 24 hours. Creatinineis stable. K was 3.8 and was repleted with IV K. - K>4, Mg>2 - Avoid QTc prolonging agents - Strict I/O - Trop x3 wnl - Pressors (mcg/kg/min): Off Levophed. Map > 65 - c/w ASA - Continue Lasix at 80 mg IV TID GI/Nutrition Elevated AST Patient w/elevated AST but otherwise LFTs wnl. No h/o EtOH use. No acute concerns - Stress ulcer prophylaxis: PPI - Nutrition: Tube feeds started Renal/Electrolytes/Fluids Uncompensated Respiratory Acidosis - Resolved - Strict I/Os - ABG PRN - BMP QD ID No focal consolidation, skin rash. Had hypotension after propofol was given, however will obtain pancultures. Had low grade fever of 100.4, will continue Unasyn and follow cultures. - Antibiotic(s): Unasyn 2/2 aspiration pneumonia - MRSA/MSSA swab negative - Urine cultures negative - Continue following Blood Cx negative for 72 hours. - Procal wnl Hematology Elevated D-Dimer Iron Deficiency Anemia Menorrhagia Patient w/known menorrhagia and severe Fe Deficiency 1 year OCCUP THER. Unsure if taking PO Fe. Hgb 6.9 on admit, will f/u and transfuse if <7. Venous doppler did not show bilateral DVT - Transfuse to maintain Hgb >7 - Iron studies - Give IV Fe if deficient and infection r/o'ed - Iron supplementation once more euvolemic Endo Morbid Obesity Hirsutism Assessment: No acute concerns Plan: - A1C 5.3 - Aspart SSI q6h Other DVT prophylaxis: heparin Lines/Catheters: 20G L Antecubital PIV, 09/20/2019 L Anterior Arm PIV, 09/21/2019 L Radial A-Line, 09/21/2019 Gleason: 09/21/2019 Dispo: MICU Prognosis: Guarded Code Status: FULL, discussed with Spouse Ac Garcia via phone [phone] Precious Paz DO Internal Medicine, PGY-1 [place] Team Pager# [phone] HOSPITAL COURSE: Vinnie Aguilera is a 43 year old female with ETIENNE, severe pHTN, PFTs w/restrictive pattern (2013), chronic hypoxic RF (on 3-4L O2 intermittently), Pickwickian syndrome, HTN, CHFpEF (TTE 09/2018), chronic Fe Deficiency Anemia, menorrhagia, tobacco use disorder, THC use disorder, and morbid obesity who presents from the ER for management of acute on chronic hypercapnic and hypoxic RF. ABGs were significant for increasing acidosis which was improved with subsequent intubation once on MICU floor. DVTruled out on doppler, thus CT PE not obtained as well as intermediate wells score. Diuresing agressively in the setting of acute on chronic HFpEF. Continuation of adjustment of vent settings while intubated. Fever of 100.6 36-48 hours after intubation (had vomiting after intubation), started Unasyn for aspiration pneumonia. CBT trial failed twice. Associated attestation - Mustapha Carpenter MD - 09/26/2019 9:22 AM CDTI personally examined the patient on 09/26/[address] Paz's resident note as written . I actively participated in the decision-making process. Please see the resident's note for additional details. Pamela Swanson LBSW - 09/25/2019 2:30 PM CDTSocial Work Note 09/25/2019 2:30 PM Care Management Continued Stay Assessment LOS Day: 4 Estimated /Planned Discharge Date: 10/02/19 MICU female 43 year old Date CM/SW last Face to Face completed with patient/family: Ac Garcia [phone] (spouse per Ac) Funding source: No coverage found. Insurance DC planner internship: N/a PCP:[facility] Patient/Family/MPOA/Caregiver Engaged with Transitional Care Plan: yes Patient/Family/MPOA/Caregiver concurs with proposed discharge plan: yes Name, Relationship to Patient and contact number of individual acting on behalf of the patient: spouse Ac Garcia [phone] Chief Complaint/Admitting Dx:RESP FAILURE Hospital Problems: Hypercapnic respiratory failure Summary of hospital course: Vinnie Aguilera is a 43 year old female withOSA, severe pHTN,PFTs w/restrictive pattern (2013),chronic hypoxic RF (on 3-4L O2 intermittently),Pickwickian syndrome, HTN, CHFpEF (TTE 09/2018), chronicFe Deficiency Anemia, menorrhagia, tobacco use disorder, THC use disorder,and morbid obesitywho presents from the ER for management of acute on chronic hypercapnic and hypoxic RF. ABGs were significant for increasing acidosis which was improved with subsequentintubation once on MICU floor. DVT ruled out on doppler, thus CT PE not obtained as well as intermediate wells score. Diuresing agressively in the setting of acute on chronic HFpEF. Continuation of adjustment of vent settings while intubated. Fever of 100.6 36- 48 hours after intubation (had vomiting after intubation), started Unasyn for aspiration pneumonia. CBT trial failed twice. CM/SW Interventions/Resources provided: SW contacted Ac Garcia [phone]. Ac reported herrelationship to the patient is spouse. She reported patient resides in the home with spouse, cousin,mother and brother. 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 Pt received a paycheck in the month of September. Pt uses o2 concentrator with baseline of 3-4 liters. Prior to admission patient was independent. Pt does not have a PCP and uses local ER for medical care. Per spouse, patient only takes a diuretic which is affordable. Spouse requested SW to call back a later time as she was heading into work. CM/SW Interventions/Resources still needed: LOUISE referred to [facility] and to [employer] for Medicaid/[facility] funding. Pt is currently under review with [employer] to verify eligibility. [facility] resources were provided and rx coupon card. Anticipated Discharge Destination: Home If DC to home, who will support patient: spouse, Ac Garcia, brother, and cousin. Anticipated DME needs: TBD. Pt owns a concentrator and has portable tanks. Pt uses [facility]. Referrals sent: not applicable If no, why/when will referral be sent:: patient is currently ventilated at this time Has patient been accepted: not applicable Revised plan if not accepted: d/c to home with family support. What is the clinical care happening right now that must be done in the hospital and only the hospital: diurisis and weaning vent. BUTCH Grace [employer] Metal Apprentice/Care Management Office [phone] Liz Azevedo MD - 09/25/2019 12:41 PM CDTBrief MICU Note Date: 09/25/2019 12:41 Code Status: full ICU day: 5 Intubation Day: 5 12 Hour Events: - output 2.7 L yesterday, net negative 761 cc - low grade temp of 100.4 this morning but WBC WNL and BCx NGTD - remains on ventilator (FiO2 45, PEEP 10) - Cr remaining stable (0.94 -> 0.91) Family Update: Patient's friend called for update but was not updated (unable to verify patient's birthday). Plan for the Next 12 Hours: - c/w lasix 80 mg IV TID, goal net negative 1-2 L daily - monitor BMP Q12H, keep K >4 and Mg >2 Liz Krueger MD PGY-2, [facility] Team Doctor's Number: [id number] Precious Birch DO - 09/25/2019 2:36 AM CDT MICU Progress Note Date of Service: 09/25/2019 02:36 Reason for ICU admission: Acute Hypercapnic Hypoxic Respiratory Failure ICU Day: 5 Intubation Day: 5 Code Status: Full Last 24 hour events (major events): - repeat CXR with worsening appearance, continues to have prominent hilar vascular congestion and bilateral interstitial/alveolar pulmonary edema - no SBT today as PEEP increased to 10 - continued on diuresis, Cr remaining stable (1.02 -> 1.00). Lasix increased back to 80 mg TID - Mildly agitated overnight, sedation slightly increased. - Low grade fever of 100.4 at 5 pm the night before. Continue Unasyn Subjective: Intubated Ventilator Bundle: Sedation/Analgesia + RASS: fentanyl, Versed 1-10 mg/hr, RASS 0 to -1 Stress ulcer prophylaxis: PPI enteral DVT prophylaxis: heparin Insulin drip: no Nutrition: Tube feeds started Lines (with dates): Left antecubital PIV 09/20/19 Left PIV 09/21/19 Right IJ CVC Triple lumen 09/21/19 Gleason: Urethral Catheter single lumen 09/20/19 NG tube 09/20/19 Intake/Output: Intake/Output Summary (Last 24 hours) at 09/25/2019 0236 Last data filed at 09/25/2019 0000 Gross per 24 hour Intake 1988.1 ml Output 3100 ml Net -1111.9 ml Physical Exam: Temp: [37.8 C (100 F)-38 C (100.4 F)] Heart Rate (monitor): [96-103] Pulse: [96-110] Resp: [15-38] Arterial Line BP: (95-112)/(45-61) MAP: [60 mmHg-74 mmHg] Constitutional: Intubated HEENT: normocephalic atraumatic, pupils equal, round, reactive to light Resp: clear to auscultation bilaterally, large body habitus Cardio: S1, S2 normal; no murmurs, rubs or gallops, regular rate and rhythm GI: soft; non-tender; non-distended; normoactive bowel sounds, large pannus with mid abdominal scar MSK: 3+ pitting edema Integ: no rashes Neuro: sedated Psych: sedated Labs (pertinent only)/Imaging: Results for VINNIE AGUILERA ( ) as of 09/21/2019 22:47 09/20/2019 23:15 09/21/2019 02:25 09/21/2019 04:52 09/21/2019 09:28 09/21/2019 15:00 PH ART 7.34 (L) 6.96 (LL) 7.40 7.51 (H) 7.45 PCO2 ART 75 (H) >160 (H) 67 (H) 52 (H) 60 (H) PO2 ART 54 (L) 97 79 (L) 56 (L) 87 HCO3 ART 39 (H) 40 (H) 41 (H) 41 (H) 41 (H) Hgb 6.8 TTE 09/23/19: Left ventricular systolic function is normal. Ejection Fraction = 55-60%. Insufficient Tricuspid regurgitation jet, RVSP elevated severely to atleast > 70mmHg. The right ventricle is not well visualized, appears moderately dilated. Microbiology: Bcx 09/21/19: NG 48 Hours Assessment/Plan: Vinnie Aguilera is a 43 year old female admitted to the MICU with acute on chronic hypercapnic & hypoxic respiratory failure secondary to acute HFpEF exacerbation and untreated ETIENNE/OHS Neuro Toxic Metabolic Encephalopathy 2/2 Profound Hypercapnia THC Use Disorder Patient obtunded upon arrival to MICU 2/2 Mikey >160. Patient follows commands. - Sedation/Analgesia: On Versed and Fentanyl. - Titrate to RAAS -2 Respiratory Acute on Chronic Hypercapnic, Hypoxic Respiratory Failure, on 3-4L O2 at home Aspiration Pneumonia Severe Pulmonary HTN Untreated ETIENNE Pickwickian Syndrome Morbid Obesity PFTs w/restrictive pattern, not COPD (2013) Tobacco Use Disorder THC Use Disorder Failure to wean PEEP or FiO2 down. Continued with PEEP 10 and FiO2 45 %. Did not do SBT today. - Continue Unasyn - ABG PRN - Suction PRN - Vent: PEEP 10, FiO2 45%, goal of PEEP of 8, FiO2 of 40 - c/w Duoneb q6h Cardiovascular Acute on Chronic Diastolic HF HTN | HLD Prolonged QTc Patient diuresing well with net negative 11L since admission. K was 3.7 and was repleted with IV K. - K>4, Mg>2 - Avoid QTc prolonging agents - Strict I/O - Trop x3 wnl - Pressors (mcg/kg/min): norepinephrine - Titrate to maintain MAP => 60 - c/w ASA - Increase Lasix back to 80 mg IV TID GI/Nutrition Elevated AST Patient w/elevated AST but otherwise LFTs wnl. No h/o EtOH use. No acute concerns - Stress ulcer prophylaxis: PPI - Nutrition: Tube feeds started Renal/Electrolytes/Fluids Uncompensated Respiratory Acidosis - Resolved - Strict I/Os - ABG PRN - BMP QD ID No focal consolidation, skin rash. Had hypotension after propofol was given, however will obtain pancultures. Had low grade fever of 100.4, will continue Unasyn and follow cultures. - Antibiotic(s): Unasyn 2/2 aspiration pneumonia - BCx x2, Sputum Cx, UA, UCx, MRSA Swab pending. Blood Cx negative for 48 hours. - Procal wnl Hematology Elevated D-Dimer Iron Deficiency Anemia Menorrhagia Patient w/known menorrhagia and severe Fe Deficiency 1 year OCCUP THER. Unsure if taking PO Fe. Hgb 6.9 on admit, will f/u and transfuse if <7. Venous doppler did not show bilateral DVT - Transfuse to maintain Hgb >7 - Iron studies - Give IV Fe if deficient and infection r/o'ed - Iron supplementation once more euvolemic Endo Morbid Obesity Hirsutism Assessment: No acute concerns Plan: - A1C 5.3 - Aspart SSI q6h Other DVT prophylaxis: heparin Lines/Catheters: 20G L Antecubital PIV, 09/20/2019 L Anterior Arm PIV, 09/21/2019 L Radial A-Line, 09/21/2019 Gleason: 09/21/2019 Dispo: MICU Prognosis: Guarded Code Status: FULL, discussed with Spouse Ac Garcia via phone [phone] Precious Paz, DO Internal Medicine, PGY-1 [place] Team Pager# [phone] HOSPITAL COURSE: Vinnie Aguilera is a 43 year old female with ETIENNE, severe pHTN, PFTs w/restrictive pattern (2013), chronic hypoxic RF (on 3-4L O2 intermittently), Pickwickian syndrome, HTN, CHFpEF (TTE 09/2018), chronic Fe Deficiency Anemia, menorrhagia, tobacco use disorder, THC use disorder, and morbid obesity who presents from the ER for management of acute on chronic hypercapnic and hypoxic RF. ABGs were significant for increasing acidosis which was improved with subsequent intubation once on MICU floor. DVTruled out on doppler, thus CT PE not obtained as well as intermediate wells score. Diuresing agressively in the setting of acute on chronic HFpEF. Continuation of adjustment of vent settings while intubated. Fever of 100.6 36-48 hours after intubation (had vomiting after intubation), started Unasyn for aspiration pneumonia. CBT trial failed twice. Associated attestation - Mustapha Carpenter MD - 09/25/2019 9:45 AM CDTI personally examined the patient on 09/25/[address] Paz's resident note as written . I actively participated in the decision-making process. Please see the resident's note for additional details. Liz Krueger MD - 09/24/2019 7:38 AM CDTBrief MICU Note Date: 09/24/2019 07:39 Code Status: full ICU day: 4 Intubation Day: 4 12 Hour Events: - repeat CXR with worsening appearance, continues to have prominent hilar vascular congestion and bilateral interstitial/alveolar pulmonary edema - no SBT today as PEEP increased to 10 - continued on diuresis, Cr remaining stable (1.02 -> 1.00) Family Update: Ac Garcia, patient's spouse, called and was updated over phone. Plan for the Next 12 Hours: - continue diuresis, monitor BMP Q12H Liz Krueger MD PGY-2, [facility] Team Doctor's Number: [id number] Precious Birch DO - 09/24/2019 1:44 AM CDT MICU Progress Note Date of Service: 09/24/2019 01:44 Reason for ICU admission: Acute Hypercapnic Hypoxic Respiratory Failure ICU Day: 4 Intubation Day: 4 Code Status: Full Last 24 hour events (major events): - Failed SBT again. - Patient is more awake now. - Decreased Lasix to 40 mg IV TID 2/2 - FiO2 increased to 45% and Peep increased back to 10 - On Versed and Fentanyl. - IV KCl 30 was given. Subjective: Intubated Ventilator Bundle: Sedation/Analgesia + RASS: fentanyl: 25-200 mcg/h, Versed 1-10 mg/hr, RASS 0 to -1 Stress ulcer prophylaxis: PPI enteral DVT prophylaxis: heparin Insulin drip: no Nutrition: Tube feeds started Lines (with dates): Left antecubital PIV 09/20/19 Left PIV 09/21/19 Right IJ CVC Triple lumen 09/21/19 Gleason: Urethral Catheter single lumen 09/20/19 NG tube 09/20/19 Intake/Output: Intake/Output Summary (Last 24 hours) at 09/24/2019 0144 Last data filed at 09/23/2019 2200 Gross per 24 hour Intake 884.85 ml Output 3350 ml Net -2465.15 ml Physical Exam: Temp: [37.4 C (99.3 F)-37.7 C (99.9 F)] Heart Rate (monitor): [96-104] Pulse: [96-105] Resp: [13-28] Arterial Line BP: (93-115)/(47-64) MAP: [63 mmHg-78 mmHg] Constitutional: Intubated HEENT: normocephalic atraumatic, pupils equal, round, reactive to light Resp: clear to auscultation bilaterally, large body habitus Cardio: S1, S2 normal; no murmurs, rubs or gallops, regular rate and rhythm GI: soft; non-tender; non-distended; normoactive bowel sounds, large pannus with mid abdominal scar MSK: 3+ pitting edema Integ: no rashes Neuro: sedated Psych: sedated Labs (pertinent only)/Imaging: Results for VINNIE AGUILERA ( ) as of 09/21/2019 22:47 09/20/2019 23:15 09/21/2019 02:25 09/21/2019 04:52 09/21/2019 09:28 09/21/2019 15:00 PH ART 7.34 (L) 6.96 (LL) 7.40 7.51 (H) 7.45 PCO2 ART 75 (H) >160 (H) 67 (H) 52 (H) 60 (H) PO2 ART 54 (L) 97 79 (L) 56 (L) 87 HCO3 ART 39 (H) 40 (H) 41 (H) 41 (H) 41 (H) Hgb 7.1 TTE 09/23/19: Left ventricular systolic function is normal. Ejection Fraction = 55-60%. Insufficient Tricuspid regurgitation jet, RVSP elevated severely to atleast > 70mmHg. The right ventricle is not well visualized, appears moderately dilated. Microbiology: Bcx 09/21/19: NG 24 Hours Assessment/Plan: Vinnie Aguilera is a 43 year old female admitted to the MICU with acute on chronic hypercapnic & hypoxic respiratory failure secondary to acute HFpEF exacerbation and untreated ETIENNE/OHS Neuro Toxic Metabolic Encephalopathy 2/2 Profound Hypercapnia THC Use Disorder Patient obtunded upon arrival to MICU 2/2 Mikey >160. Patient is more awake today and follows commands. - Sedation/Analgesia: On Versed and Fentanyl. - Titrate to RAAS -2 Respiratory Acute on Chronic Hypercapnic, Hypoxic Respiratory Failure, on 3-4L O2 at home Aspiration Pneumonia Severe Pulmonary HTN Untreated ETIENNE Pickwickian Syndrome Morbid Obesity PFTs w/restrictive pattern, not COPD (2013) Tobacco Use Disorder THC Use Disorder Had to increase FiO2 to 45% and PEEP to 10. Pt failed SBT. Procal was negative. Will continue diuresis as below. - Continue Unasyn - ABG PRN - Suction PRN - Vent: PEEP 10, FiO2 45%, goal of PEEP of 8, FiO2 of 40 - Viral Respiratory Panel (pending) - c/w Duoneb q6h Cardiovascular Acute on Chronic Diastolic HF HTN | HLD Prolonged QTc Patient diuresing well with net negative 11L since admission. K was 3.7 and was repleted with IV K. - K>4, Mg>2 - Avoid QTc prolonging agents - Strict I/O - Trop x3 wnl - Pressors (mcg/kg/min): norepinephrine - Titrate to maintain MAP => 60 - c/w ASA - Decrease Lasix to 40 mg IV BID GI/Nutrition Elevated AST Patient w/elevated AST but otherwise LFTs wnl. No h/o EtOH use. No acute concerns - Stress ulcer prophylaxis: PPI - Nutrition: Tube feeds started Renal/Electrolytes/Fluids Uncompensated Respiratory Acidosis - Resolved - Strict I/Os - ABG PRN - BMP QD ID No fevers, focal consolidation, skin rash. Had hypotension after propofol was given, however will obtain pancultures - Antibiotic(s): Unasyn 2/2 aspiration pneumonia - BCx x2, Sputum Cx, UA, UCx, MRSA Swab pending. Blood Cx negative for 24 hours. - Procal wnl Hematology Elevated D-Dimer Iron Deficiency Anemia Menorrhagia Patient w/known menorrhagia and severe Fe Deficiency 1 year OCCUP THER. Unsure if taking PO Fe. Hgb 6.9 on admit, will f/u and transfuse if <7. Venous doppler did not show bilateral DVT - Transfuse to maintain Hgb >7 - Iron studies - Give IV Fe if deficient and infection r/o'ed - Iron supplementation once more euvolemic Endo Morbid Obesity Hirsutism Assessment: No acute concerns Plan: - A1C 5.3 - Aspart SSI q6h Other DVT prophylaxis: heparin Lines/Catheters: 20G L Antecubital PIV, 09/20/2019 L Anterior Arm PIV, 09/21/2019 L Radial A-Line, 09/21/2019 Gleason: 09/21/2019 Dispo: MICU Prognosis: Guarded Code Status: FULL, discussed with Spouse Ac Garcia via phone [phone] Precious Paz, DO Internal Medicine, PGY-1 [place] Team Pager# [phone] HOSPITAL COURSE: Vinnie Aguilera is a 43 year old female with ETIENNE, severe pHTN, PFTs w/restrictive pattern (2013), chronic hypoxic RF (on 3-4L O2 intermittently), Pickwickian syndrome, HTN, CHFpEF (TTE 09/2018), chronic Fe Deficiency Anemia, menorrhagia, tobacco use disorder, THC use disorder, and morbid obesity who presents from the ER for management of acute on chronic hypercapnic and hypoxic RF. ABGs were significant for increasing acidosis which was improved with subsequent intubation once on MICU floor. DVTruled out on doppler, thus CT PE not obtained as well as intermediate wells score. Diuresing agressively in the setting of acute on chronic HFpEF. Continuation of adjustment of vent settings while intubated. Fever of 100.6 36-48 hours after intubation (had vomiting after intubation), started Unasyn for aspiration pneumonia. CBT trial failed twice. Associated attestation - Mustapha Carpenter MD - 09/24/2019 9:10 AM CDTI personally examined the patient on 09/24/[address] Paz's resident note as written . I actively participated in the decision-making process. Please see the resident's note for additional details. Liz Krueger MD - 09/23/2019 7:23 PM CDTBrief MICU Note Date: 09/23/2019 19:23 Code Status: full ICU day: 3 Intubation Day: 3 12 Hour Events: - procal negative - failed SBT - tube feeds started - echo with EF 55-60%, RVSP severely elevated (>70 mmHg), right ventricle moderately dilated Family Update: Updated patient's cousin, Nadiya Aguilera, over the phone. Plan for the Next 12 Hours: - diuresis with lasix IV 40 mg TID, monitor Cr Q12H - SBT in AM Liz Krueger MD PGY-2, [facility] Team Doctor's Number: [id number] Precious Birch DO - 09/23/2019 2:23 AM CDT MICU Progress Note Date of Service: 09/23/2019 02:23 Reason for ICU admission: Acute Hypercapnic Hypoxic Respiratory Failure ICU Day: 3 Intubation Day: 3 Code Status: Full Last 24 hour events (major events): - Failed SBT. Patient was too somnolent. Temp 100.6 2 days after intubation. Possible aspiration pneumonia. Started on Unasyn. - Lasix increased to 80 mg IV TID 2/2 pulmonary edema. - Slight increase in respiratory secretions from the day before. - FiO2 weaned to 40% and Peep weaned to 9 - Weaned off Versed, unable to tolerate propofol. - C/w Fentanyl gtt Subjective: Intubated Ventilator Bundle: Sedation/Analgesia + RASS: fentanyl: 25-200 mcg/h, Versed 1-10 mg/hr, Propofol 5-75 mcg/kg/min, RASS 0 to -1 Stress ulcer prophylaxis: PPI enteral DVT prophylaxis: heparin Insulin drip: no Nutrition: NGT Lines (with dates): Left antecubital PIV 09/20/19 Left PIV 09/21/19 Right IJ CVC Triple lumen 09/21/19 Gleason: Urethral Catheter single lumen 09/20/19 NG tube 09/20/19 Intake/Output: Intake/Output Summary (Last 24 hours) at 09/23/2019 0223 Last data filed at 09/23/2019 0000 Gross per 24 hour Intake 759 ml Output 4475 ml Net -3716 ml Physical Exam: Temp: [37.3 C (99.1 F)-38.1 C (100.6 F)] Heart Rate (monitor): [96-111] Pulse: [96-115] Resp: [14-16] Arterial Line BP: (100-117)/(45-62) MAP: [65 mmHg-79 mmHg] Constitutional: Intubated HEENT: normocephalic atraumatic, pupils equal, round, reactive to light Resp: clear to auscultation bilaterally, large body habitus Cardio: S1, S2 normal; no murmurs, rubs or gallops, regular rate and rhythm GI: soft; non-tender; non-distended; normoactive bowel sounds, large pannus with mid abdominal scar MSK: 3+ pitting edema Integ: no rashes Neuro: sedated Psych: sedated Labs (pertinent only)/Imaging: Results for VINNIE AGUILERA ( ) as of 09/21/2019 22:47 09/20/2019 23:15 09/21/2019 02:25 09/21/2019 04:52 09/21/2019 09:28 09/21/2019 15:00 PH ART 7.34 (L) 6.96 (LL) 7.40 7.51 (H) 7.45 PCO2 ART 75 (H) >160 (H) 67 (H) 52 (H) 60 (H) PO2 ART 54 (L) 97 79 (L) 56 (L) 87 HCO3 ART 39 (H) 40 (H) 41 (H) 41 (H) 41 (H) Hgb 6.9 -->6.6 --> 7.0 -> 6. -> 7.1 Abdominal 1 View - To Confirm Nasogastric Tube Placement. BLE Venous Doppler Interpretation Summary The BILATERAL lower extremity venous system was examined. No evidence of deep venous thrombosis in the visualized veins. CXR 09/21 FINDINGS: Right IJ central line is partially visualized terminating in the confluence of brachiocephalic vein/proximal SVC. Endotracheal tube terminates approximately 5.6 cm above the nelson. An enteric tube passes through the diaphragm with the tip beyond the field of study. The lungs are underinflated. Interstitial markings are prominent bilaterally. Opacities are noted in bilateral lung bases. Costophrenic angles are blunted suggestive of small pleural effusion on both sides. There is no pneumothorax. The heart is moderately enlarged. There is no acute osseous abnormality. Microbiology: Bcx 09/21/19: In progress Assessment/Plan: Vinnie Aguilera is a 43 year old female admitted to the MICU with acute on chronic hypercapnic & hypoxic respiratory failure secondary to acute HFpEF exacerbation and untreated ETIENNE/OHS Neuro Toxic Metabolic Encephalopathy 2/2 Profound Hypercapnia THC Use Disorder Assessment: patient obtunded upon arrival to MICU 2/2 Mikey >160. Plan: - Sedation/Analgesia: propofol to be transitioned to fentanyl and versed - Titrate to RAAS -2 Respiratory Acute on Chronic Hypercapnic, Hypoxic Respiratory Failure, on 3-4L O2 at home Aspiration Pneumonia Severe Pulmonary HTN Untreated ETIENNE Pickwickian Syndrome Morbid Obesity PFTs w/restrictive pattern, not COPD (2014) Tobacco Use Disorder THC Use Disorder Assessment: Patient with known nonadherence to PAP therapy outpatient admitted with acute hypoxic/hypercapnic RF which worsened despite receiving Bipap therapy in the ED. Not typical of COVID-19. Intubated for airway protection (had emesis after intubation). Temp 100.6, 36- 48 hours after intubation likely 2/2 aspiration pneumonia. Will start Unasyn. Does have clinical/lab evidence of acute Diastolic HF. Will start aggressive diuresis and adjust MV settings per ABG. Plan: - Continue Unasyn - ABG PRN - Suction PRN - Vent: PRVC, RR 14, TV 480, PEEP 9, FiO2 40%, goal of PEEP of 8, FiO2 of 40 - Viral Respiratory Panel (pending) - c/w Duoneb q6h Cardiovascular Acute on Chronic Diastolic HF HTN | HLD Prolonged QTc Assessment: Patient not on anti-HTN outpatient per spouse. Exam with notable peripheral edema, NT-proBNP elevated, and CXR w/congestion all c/w acute HF. Diuresing Plan: - K>4, Mg>2 - Avoid QTc prolonging agents - Strict I/O - TTE (pending) - Trop x1 wnl - Pressors (mcg/kg/min): norepinephrine - Titrate to maintain MAP => 60 - c/w ASA - c/w Lasix 80 mg IV BID GI/Nutrition Elevated AST Assessment: Patient w/elevated AST but otherwise LFTs wnl. No h/o EtOH use. No acute concerns Plan: - Stress ulcer prophylaxis: PPI - Nutrition: Enteral - pending clearance of NGTd Renal/Electrolytes/Fluids Uncompensated Respiratory Acidosis Assessment: Patient with worsened respiratory acidosis despite 2 hours Bipap therapy in ED, caused patient to become obtunded and require intubation. Given 3 amps of bicarb when MAPs were <60. Plan to repeat ABG 30 minutes after patient settled on MV Plan: - Strict I/Os - ABG PRN - BMP QD ID Assessment: No fevers, focal consolidation, skin rash. Had hypotension after propofol was given, however will obtain pancultures Plan: - Antibiotic(s): Unasyn 2/2 aspiration pneumonia - BCx x2, Sputum Cx, UA, UCx, MRSA Swab (all in process) - Procal wnl Hematology Elevated D-Dimer Iron Deficiency Anemia Menorrhagia Assessment: Patient w/known menorrhagia and severe Fe Deficiency 1 year OCCUP THER. Unsure if taking PO Fe. Hgb 6.9 on admit, will f/u and transfuse if <7. Venous doppler did not show bilateral DVT Plan: - Transfuse to maintain Hgb >7 - Iron studies - Give IV Fe if deficient and infection r/o'ed - Iron supplementation once more euvolemic Endo Morbid Obesity Hirsutism Assessment: No acute concerns Plan: - A1C 5.3 - Aspart SSI q6h Other DVT prophylaxis: heparin Lines/Catheters: 20G L Antecubital PIV, 09/20/2019 L Anterior Arm PIV, 09/21/2019 L Radial A-Line, 09/21/2019 Gleason: 09/21/2019 Dispo: MICU Prognosis: Guarded Code Status: FULL, discussed with Spouse Ac Garcia via phone [phone] Precious Paz, Internal Medicine, PGY-1 [place] Team Pager# [phone] HOSPITAL COURSE: Vinnie Aguilera is a 43 year old female with ETIENNE, severe pHTN, PFTs w/restrictive pattern (2013), chronic hypoxic RF (on 3-4L O2 intermittently), Pickwickian syndrome, HTN, CHFpEF (TTE 09/2018), chronic Fe Deficiency Anemia, menorrhagia, tobacco use disorder, THC use disorder, and morbid obesity who presents from the ER for management of acute on chronic hypercapnic and hypoxic RF. ABGs were significant for increasing acidosis which was improved with subsequent intubation once on MICU floor. DVTruled out on doppler, thus CT PE not obtained as well as intermediate wells score. Diuresing agressively in the setting of acute on chronic HFpEF. Continuation of adjustment of vent settings while intubated. Fever of 100.6 36-48 hours after intubation (had vomiting after intubation), started Unasyn for aspiration pneumonia. Associated attestation - Mustapha Carpenter MD - 09/23/2019 9:40 AM CDTI personally examined the patient on 09/23/[address] Paz's resident note as written . I actively participated in the decision-making process. Please see the resident's note for additional details. Zuly Carbone MD - 09/22/2019 6:12 PM CDTMICU BRIEF NOTE Date of Service: 09/22/2019, HD #: 1 ICU day: 3 Intubation day: 3 Code status: Full 12 hour events: - failed SBT. Patient was too somnolent - Tmax 100.6; CXR, blood cx obtained showing possible aspiration PNA and pulm edema - started on unasyn - increased lasix to 80 mg IV TID - weaned off versed. Unable to tolerate propofol - c/w fentanyl gtt Plan for the next 12 hours: - trial SBT in AM - hold sedation in AM - c/w diuresis and abx - f/u blood cx Zuly Carbone MD Internal medicine PGY - 3 Pager #: [phone] Leonardo Toro RN - 09/22/2019 11:10 AM Mary[employer] Revenue Accountant's note: 09/22/2019 11:10 AM Call placed to Ac Garcia [phone], no answer. Call placed to Donovan Aguilera information for SFA obtained. SFA complete, see below Care Management Social Functional Assessment Patient Name: Vinnie Aguilera Age: [age] year old Sex: female Patient's Previous Admission Date at [facility]: 10/05/2018 Current diagnosis and co-morbidities: RESP FAILURE Readmission Questions: Was patient discharged from any acute care hospital within the last 30 days: No Social Functional Assessment: Primary language spoken/preferred: [place] Information given by: Other Name and phone number of person giving information: Donovan Aguilera Patient's support system: Other Name and number of support system: Donovan Aguilera (brother) Primary Appraisal Coordinator: Self MPOA: Yes(per brother this was done in hospital, chart does not rewflect asked for document) Living Arrangement: Apartment: [facility] Address of living arrangement : [address] [place] [address] [address] [address], [place] [address] Persons living in home: Self;Same as support system;Other Names & numbers of persons living in home: Jean Garcia (brother) [phone] Barriers to returning home: None Baseline functional status- ambulation: Independent Functional status-baseline personal care: Independent Baseline functional status- driving: Independent Baseline functional status- grocery shopping: Independent Functional status-baseline housekeeping: Independent Functional status-baseline meal prep: Independent Current functional status same as prior: No Current functional status- ambulation: Dependent Current functional status- personal care: Dependent Current functional status- driving: Dependent Current functional status- grocery shopping: Dependent Current functional status-house keeping: Dependent Current functional status- meal preparation: Dependent Do you have a PCP?: Yes Name of PCP: Amol Santillan [facility] Care Agency: No Provider Services: No DME Company: No Equipment: O2: LPM;O2:Portable tank available Hemodialysis: No Community resources utilized: [facility] [employer] Funding Resources: Self Pay Prescription coverage plan: Self Pay Pharmacy where meds are filled: [facility] [address] [place] [address] (Ph) [phone] Anticipated services prior to disharge: Continue Medical Eval Expected mode of discharge transportation: Personal vehicle;Same as support system Additional info required for discharge planning: Pending medical evaluation Recommended discharge plan: Home SFA Complete: Social Functional Assessment complete: Yes Alcohol Use Screening (AUDIT-C) How often do you have a drink containing alcohol?: Never SCORE: 0 Did patient elect to have resources provided: No Role of Care Management explained. Any issues or concerns with obtaining/affording your medications at home: no Are you or your support system able to cotton picker medications at discharge: yes CHEVY Pickett, RN Weekend Revenue Accountant [facility] Care [email or web address] O) F) EDUARDOT Tim Waters MD - 09/22/2019 12:49 AM CDT MICU Progress Note Date of Service: 09/22/2019 00:49 Reason for ICU admission: Acute Hypercapnic Hypoxic Respiratory Failure ICU Day: 2 Intubation Day: 2 Code Status: Full Last 24 hour events (major events): - Intubation 2/2 reason for admission - Common law marriage partner deemed to be MPOA - s/p 1u pRBC - NGT cleared and intermittent suction w/ 200 cc output - Started on D5 at 10cc/HR due to risk of hypoglycemia (last BG 70) Subjective: Intubated Ventilator Bundle: Sedation/Analgesia + RASS: fentanyl: 25-200 mcg/h, Versed 1-10 mg/hr, Propofol 5-75 mcg/kg/min, RASS 0 to -1 Stress ulcer prophylaxis: PPI enteral DVT prophylaxis: heparin Insulin drip: no Nutrition: NGT Lines (with dates): Left antecubital PIV 09/20/19 Left PIV 09/21/19 Right IJ CVC Triple lumen 09/21/19 Gleason: Urethral Catheter single lumen 09/20/19 NG tube 09/20/19 Intake/Output: Intake/Output Summary (Last 24 hours) at 09/22/2019 0049 Last data filed at 09/21/2019 2200 Gross per 24 hour Intake 1252.6 ml Output 5875 ml Net -4622.4 ml Physical Exam: Temp: [35.2 C (95.4 F)-37.1 C (98.8 F)] Heart Rate (monitor): [66-105] Pulse: [66-105] Resp: [0-28] BP: (95-153)/(45-78) Arterial Line BP: (98-182)/(44-94) MAP (mmHg): [60-100] MAP: [60 mmHg-119 mmHg] Constitutional: Intubated HEENT: normocephalic atraumatic, pupils equal, round, reactive to light Resp: clear to auscultation bilaterally, large body habitus Cardio: S1, S2 normal; no murmurs, rubs or gallops, regular rate and rhythm GI: soft; non-tender; non-distended; normoactive bowel sounds, large pannus with mid abdominal scar MSK: 3+ pitting edema Integ: no rashes Neuro: sedated Psych: sedated Labs (pertinent only)/Imaging: Results for VINNIE AGUILERA ( ) as of 09/21/2019 22:47 09/20/2019 23:15 09/21/2019 02:25 09/21/2019 04:52 09/21/2019 09:28 09/21/2019 15:00 PH ART 7.34 (L) 6.96 (LL) 7.40 7.51 (H) 7.45 PCO2 ART 75 (H) >160 (H) 67 (H) 52 (H) 60 (H) PO2 ART 54 (L) 97 79 (L) 56 (L) 87 HCO3 ART 39 (H) 40 (H) 41 (H) 41 (H) 41 (H) Hgb 6.9 -->6.6 --> 7.0 Abdominal 1 View - To Confirm Nasogastric Tube Placement. BLE Venous Doppler Interpretation Summary The BILATERAL lower extremity venous system was examined. No evidence of deep venous thrombosis in the visualized veins. Result Date: 09/21/2019 FINDINGS/IMPRESSION: The enteric tube passes through the diaphragm and terminates in the stomach in proper position. The bowel gas pattern is within normal limits. Preliminary Report Dictated by Resident: Ramon Shetty MD., have reviewed this study and agree with the above report. Xr Chest 1 Vw Result Date: 09/21/2019 Endotracheal tube in proper position. Right IJ central line and proximal SVC. Cardiomegaly and pulmonary congestion with small right pleural effusion. Right basilar opacities are likely due to atelectasis; however, a developing pneumonia cannot be excluded in appropriate clinical settings. PreliminaryReport Dictated by Resident: Ramon Shetty MD., have reviewed this study and agree with the above report. Xr Chest 1 Vw Result Date: 09/20/2019 Cardiomegaly, pulmonary vascular congestion. Preliminary Report Dictated by Resident: Blue Machado I, Milagros Chopra MD., have reviewed this study and agree with the above report. Microbiology: Bcx 09/21/19: In progress Assessment/Plan: Vinnie Aguilera is a 43 year old female admitted to the MICU with acute on chronic hypercapnic & hypoxic respiratory failure secondary to acute HFpEF exacerbation and untreated ETIENNE/OHS Neuro Toxic Metabolic Encephalopathy 2/2 Profound Hypercapnia THC Use Disorder Assessment: patient obtunded upon arrival to MICU 2/2 Mikey >160. Plan: - Sedation/Analgesia: propofol to be transitioned to fentanyl and versed - Titrate to RAAS -2 Respiratory Acute on Chronic Hypercapnic, Hypoxic Respiratory Failure, on 3-4L O2 at home Severe Pulmonary HTN Untreated ETIENNE Pickwickian Syndrome Morbid Obesity PFTs w/restrictive pattern, not COPD (2014) Tobacco Use Disorder THC Use Disorder Assessment: Patient with known nonadherence to PAP therapy outpatient admitted with acute hypoxic/hypercapnic RF which worsened despite receiving Bipap therapy in the ED. Intubated for airway protection (had emesis after intubation). No sick contacts or clear evidence of PNA on CXR. Not typical ofCOVID-19. Does have clinical/lab evidence of acute Diastolic HF. Will start aggressive diuresis and adjust MV settings per ABG. Plan: - ABG PRN - Suction PRN - Vent: PRVC, RR 18, TV 480, PEEP 8, FiO2 100%, goal of PEEP of 5, FiO2 of 40 - Viral Respiratory Panel (pending) - c/w Duoneb q6h Cardiovascular Acute on Chronic Diastolic HF HTN | HLD Prolonged QTc Assessment: Patient not on anti-HTN outpatient per spouse. Exam with notable peripheral edema, NT-proBNP elevated, and CXR w/congestion all c/w acute HF. Diuresing Plan: - K>4, Mg>2 - Avoid QTc prolonging agents - Strict I/O - TTE (pending) - Trop x1 wnl - Pressors (mcg/kg/min): norepinephrine - Titrate to maintain MAP => 60 - c/w ASA - c/w Lasix 80 mg IV BID GI/Nutrition Elevated AST Assessment: Patient w/elevated AST but otherwise LFTs wnl. No h/o EtOH use. No acute concerns Plan: - Stress ulcer prophylaxis: PPI - Nutrition: Enteral - pending clearance of NGTd Renal/Electrolytes/Fluids Uncompensated Respiratory Acidosis Assessment: Patient with worsened respiratory acidosis despite 2 hours Bipap therapy in ED, caused patient to become obtunded and require intubation. Given 3 amps of bicarb when MAPs were <60. Plan to repeat ABG 30 minutes after patient settled on MV Plan: - Strict I/Os - ABG PRN - BMP QD ID Assessment: No fevers, focal consolidation, skin rash. Had hypotension after propofol was given, however will obtain pancultures Plan: - Antibiotic(s): hold unless febrile or vasopressor requirement increase - BCx x2, Sputum Cx, UA, UCx, MRSA Swab (all in process) - Procal wnl Hematology Elevated D-Dimer Iron Deficiency Anemia Menorrhagia Assessment: Patient w/known menorrhagia and severe Fe Deficiency 1 year OCCUP THER. Unsure if taking PO Fe. Hgb 6.9 on admit, will f/u and transfuse if <7. Venous doppler did not show bilateral DVT Plan: - Transfuse to maintain Hgb >7 - Iron studies - Give IV Fe if deficient and infection r/o'ed - Iron supplementation once more euvolemic Endo Morbid Obesity Hirsutism Assessment: No acute concerns Plan: - A1C 5.3 - Aspart SSI q6h Other DVT prophylaxis: heparin Lines/Catheters: 20G L Antecubital PIV, 09/20/2019 L Anterior Arm PIV, 09/21/2019 L Radial A-Line, 09/21/2019 Gleason: 09/21/2019 Dispo: MICU Prognosis: Guarded Code Status: FULL, discussed with Spouse Ac Garcia via phone [phone] Tim Waters MD Internal Medicine, PGY-1 Pager#[phone] HOSPITAL COURSE: Vinnie Aguilera is a 43 year old female with ETIENNE, severe pHTN, PFTs w/restrictive pattern (2013), chronic hypoxic RF (on 3-4L O2 intermittently), Pickwickian syndrome, HTN, CHFpEF (TTE 09/2018), chronic Fe Deficiency Anemia, menorrhagia, tobacco use disorder, THC use disorder, and morbid obesity who presents from the ER for management of acute on chronic hypercapnic and hypoxic RF. ABGs were significant for increasing acidosis which was improved with subsequent intubation once on MICU floor. DVTruled out on doppler, thus CT PE not obtained as well as intermediate wells score. Diuresing agressively in the setting of acute on chronic HFpEF. Continuation of adjustment of vent settings while intubated. Associated attestation - Nando Almanza MD - 09/22/2019 12:23 PM CDT Attending History Supplement: I personally examined the patient on 09/22/[address] Waters's resident note as written. I actively participated in the decision-making process. Please see the resident's note for additional details. Vinnie Aguilera is a 43 year old female with sleep disordered breathing,chronic diastolic heart failure admitted with acute on chronic hypercapnic and hypoxic respiratory failure and acute on chronic diastolic heart failure requiring mechanical ventilation. Decreasing oxygen requirements. Diuresis well. Remains ventilator dependent and continue current ventilator strategy. To decrease FiO2 to maintain SpO2 > 92 %. Family Zuly Vazquez MD - 09/21/2019 4:23 PM CDTMICU BRIEF NOTE Date of Service: 09/21/2019, HD #: 0 ICU day: 2 Intubation day: 2 Code status: Full 12 hour events: - received phone call from patients cousin, nadiya aguilera. Cousin states that "T" is patients on &off again girlfriend & NOT SPOUSE and have never been . They have been together for many years and lived together for > 5 years. Girlfriend and patient have been off for past year but gotback together a few days ago. Cousin states that cousin should be point of contact to make medical decision & not the girlfriend. Patient has a mom who had several strokes and cant make medical decisions. Patient also has a brother named Donovan Aguilera ([phone]). Donovan lives with patient and francisca same house but she is not close with brother - contacted ethics; if patient has person claiming to be patients spouse then that person can make medical decisions - s/p 1 unit pRBC, repeat Hgb pending - remains intubated; FiO2 50%, PEEP 10 - NGT cleared & intermittent suction w/ 200 cc output. - started D5 at 10 cc/hr due to risk of hypoglycemia (last BG 70) Plan for the next 12 hours: - continue with diuresis - wean down vent settings as tolerated Zuly Carbone MD Internal medicine PGY - 2 Pager #: [phone] Gordy Andres MD - 09/21/2019 12:48 AM CDTPULMONARY / MICU NOTE The patient was discussed with ED PHYSICIAN at 09/21/2019 00:48. There are no available ICU beds at this time. The pt will be accepted to MICU service when a bed is available, but until that time remains under the care of the ER . Gordy Lawson MD Fellow in Pulmonary & Critical care Medicine Pager: [phone] documented in this encounter Plan of Treatment Name Type Priority Associated Diagnoses Date/Ti me ANTI-NUCLEAR LAB Routine 10/25/2019 4:5 4 AM ANTIBODY-PATHOLOGIST CDT INTERPRETATION Name Type Priority Associated Order Schedule Diagnoses EKG-12 LEAD ROUTINE HEART STATION STAT ONCE fo r 1 Occurrences sta rting 09/21/2019 unti l 09/21/2019 RESPIRATORY PANEL BY LAB JEFF ONCE fo r 1 PCR Occurrences sta rting 09/21/2019 unti l 09/21/2019 Acute Care Arterial LAB JEFF ONCE for 1 Blood Gas. Occurrences sta rting 09/21/2019 unti l 09/21/2019 Vancomycin Trough Level LAB JEFF ONCE for 1 - Draw immediately Occurrenc es starting prior to the 4TH dose, 09/25 until but, no more than 60 020 minutes before the 4TH dose. EKG-12 LEAD ROUTINE HEART STATION Routine ONCE fo r 1 Occurrences sta rting 10/08/2019 unti l 10/08/2019 EKG-12 LEAD ROUTINE HEART STATION Routine ONCE fo r 1 Occurrences sta rting 10/24/2019 unti l 10/24/2019 PROCALCITONIN LAB Routine ONCE for 1 Occurrences sta rting 10/24/2019 unti l 10/24/2019 EKG-12 LEAD ROUTINE HEART STATION Routine ONCE fo r 1 Occurrences sta rting 10/26/2019 unti l 10/26/2019 EKG-12 LEAD ROUTINE HEART STATION Routine EVERY M ORNING until discontinued starting 2019 HEPARIN ANTI XA GROUP LAB Routine ONCE f or 1 Occurrences sta rting 10/29/2019 unti l 10/29/2019 ANTI-NUCLEAR LAB Routine ONCE for 1 ANTIBODY-PATHOLOGIST Occurre nces starting INTERPRETATION 10/29/2019 un til 10/29/2019 aPTT LAB Routine FOR FOLLOW-UP TESTING until discontinued starting 2019, 15 completed Cardiac Monitoring 24 HEART STATION Routine ONCE for 1 hours (for SHAD) Occurrences starting 11/08/2019 unti l 11/08/2019 MAGNESIUM LAB Routine EVERY 48 HOURS (START TIME ADJUSTABLE) for 1 Weeks starting 11/10/2019 unti l 11/16/2019, 3 completed PROTHROMBIN TIME / INR LAB Routine EVERY 24 HOURS (START TIME ADJUSTABLE) for 3 Occurrences sta rting 11/15/2019 unti l 11/17/2019, 1 completed Health Maintenance Due Date Last Done Comments PNEUMOCOCCAL 0-64 YEARS COMBINED SERIES (1 of 1 - 11/24/1983 PPSV23) DTaP,Tdap,and Td Vaccines (1 - Tdap) 1988 Depression Screening 1989 PAP SMEAR 03/02/2013 03/02/2010 Breast Cancer Screening (MAMMOGRAM) 2017 INFLUENZA VACCINE (#1) 2020 03/12/2014 documented as of this encounter Implants Implanted Type Area Electrical And Radio Mechanic Device Shelf Model / Identifier Expiration Serial / Date Lot Mesh Proceed [id number]) Oval Ethicon #[id number] - S0 MESH N/A: A bdomen Ethicon 10/12/2017 [id number] / Implanted: Qty: 1 on 05/29/2016 by Geraldine Landis MD at [facility] 0 / [id number] documented as of this encounter Procedures Procedure Name Priority Date/Time Associated Diagnosis Comme nts PROTHROMBIN TIME / INR Routine 11/15/2019 Resul ts for 5:26 AM CDT this procedure are in the results section. PROFILE / HEMOGRAM Routine 11/14/2019 Results f or 2:21 PM CDT this procedure are in the results section. ACTIVATED PARTIAL Routine 11/14/2019 Results fo r THRMPLAS TAMMI 5:52 AM CDT this procedure are in the results section. PROTHROMBIN TIME / INR Routine 11/14/2019 Resul ts for 5:52 AM CDT this procedure are in the results section. MAGNESIUM Routine 11/14/2019 Results for 5:52 AM CDT this procedure are in the results section. ACTIVATED PARTIAL Routine 11/13/2019 Results fo r THRMPLAS TAMMI 5:52 PM CDT this procedure are in the results section. ACTIVATED PARTIAL Routine 11/13/2019 Results fo r THRMPLAS TAMMI 4:49 AM CDT this procedure are in the results section. PROTHROMBIN TIME / INR Routine 11/13/2019 Resul ts for 4:49 AM CDT this procedure are in the results section. PROTHROMBIN TIME / INR Routine 11/12/2019 Resul ts for 4:43 AM CDT this procedure are in the results section. BASIC METABOLIC PANEL Routine 11/12/2019 Result s for (NA, K, CL, CO2, 4:43 AM CDT this proced ure GLUCOSE, BUN, are in the CREATININE, CA) results section. MAGNESIUM Routine 11/12/2019 Results for 4:43 AM CDT this procedure are in the results section. EKG-12 LEAD Routine 11/12/2019 4:39 AM CDT POCT GLUCOSE Routine 11/11/2019 Results for (AUTOMATED) 12:25 PM CDT this procedure are in the results section. EKG-12 LEAD Routine 11/11/2019 8:15 AM CDT ACTIVATED PARTIAL Routine 11/11/2019 Results fo r THRMPLAS TAMMI 1:20 AM CDT this procedure are in the results section. PROTHROMBIN TIME / INR Routine 11/11/2019 Resul ts for 1:20 AM CDT this procedure are in the results section. EKG-12 LEAD Routine 11/10/2019 7:51 AM CDT POCT GLUCOSE Routine 11/10/2019 Results for (AUTOMATED) 6:05 AM CDT this procedure are in the results section. CBC WITH DIFFERENTIAL Routine 11/10/2019 Result s for 1:42 AM CDT this procedure are in the results section. ACTIVATED PARTIAL Routine 11/10/2019 Results fo r THRMPLAS TAMMI 1:42 AM CDT this procedure are in the results section. PROTHROMBIN TIME / INR Routine 11/10/2019 Resul ts for 1:42 AM CDT this procedure are in the results section. CBC WITH DIFFERENTIAL Routine 11/10/2019 Result s for 1:42 AM CDT this procedure are in the results section. BASIC METABOLIC PANEL Routine 11/10/2019 Result s for (NA, K, CL, CO2, 1:42 AM CDT this proced ure GLUCOSE, BUN, are in the CREATININE, CA) results section. MAGNESIUM Routine 11/10/2019 Results for 1:42 AM CDT this procedure are in the results section. POCT GLUCOSE Routine 11/10/2019 Results for (AUTOMATED) 12:52 AM CDT this procedure are in the results section. POCT GLUCOSE Routine 11/09/2019 Results for (AUTOMATED) 5:58 PM CDT this procedure are in the results section. ACTIVATED PARTIAL Routine 11/09/2019 Results fo r THRMPLAS TAMMI 12:22 PM CDT this procedure are in the results section. POCT GLUCOSE Routine 11/09/2019 Results for (AUTOMATED) 12:18 PM CDT this procedure are in the results section. POCT GLUCOSE Routine 11/09/2019 Results for (AUTOMATED) 5:49 AM CDT this procedure are in the results section. ACTIVATED PARTIAL Routine 11/09/2019 Results fo r THRMPLAS TAMMI 12:33 AM CDT this procedure are in the results section. PROTHROMBIN TIME / INR Routine 11/09/2019 Resul ts for 12:33 AM CDT this procedure are in the results section. POCT GLUCOSE Routine 11/09/2019 Results for (AUTOMATED) 12:21 AM CDT this procedure are in the results section. TRANSESOPHAGEAL ECHO Routine 11/08/2019 Mural thrombus of 1:37 PM CDT right atrium ACTIVATED PARTIAL Routine 11/08/2019 Results fo r THRMPLAS TAMMI 12:04 PM CDT this procedure are in the results section. COVID-19 (ID NOW RAPID Routine 11/08/2019 Resul ts for TESTING) 11:57 AM CDT this procedure are in the results section. POCT GLUCOSE Routine 11/08/2019 Results for (AUTOMATED) 6:14 AM CDT this procedure are in the results section. CBC WITH DIFFERENTIAL Routine 11/08/2019 Result s for 12:19 AM CDT this procedure are in the results section. ACTIVATED PARTIAL Routine 11/08/2019 Results fo r THRMPLAS TAMMI 12:19 AM CDT this procedure are in the results section. PROTHROMBIN TIME / INR Routine 11/08/2019 Resul ts for 12:19 AM CDT this procedure are in the results section. CBC WITH DIFFERENTIAL Routine 11/08/2019 Result s for 12:19 AM CDT this procedure are in the results section. BASIC METABOLIC PANEL Routine 11/08/2019 Result s for (NA, K, CL, CO2, 12:19 AM CDT this proced ure GLUCOSE, BUN, are in the CREATININE, CA) results section. MAGNESIUM Routine 11/08/2019 Results for 12:19 AM CDT this procedure are in the results section. POCT GLUCOSE Routine 11/07/2019 Results for (AUTOMATED) 11:44 PM CDT this procedure are in the results section. POCT GLUCOSE Routine 11/07/2019 Results for (AUTOMATED) 5:43 PM CDT this procedure are in the results section. FL MODIFIED BARIUM Routine 11/07/2019 SOB (shortness of Resu lts for SWALLOW 3:30 PM CDT breath) this procedure are in the results section. POCT GLUCOSE Routine 11/07/2019 Results for (AUTOMATED) 12:29 PM CDT this procedure are in the results section. ACTIVATED PARTIAL Routine 11/07/2019 Results fo r THRMPLAS TAMMI 9:46 AM CDT this procedure are in the results section. PROTHROMBIN TIME / INR Add-on 11/07/2019 Resul ts for 9:46 AM CDT this procedure are in the results section. ECHO ROUTINE W/DOPPLER Routine 11/07/2019 SOB (shortness of COLOR 8:40 AM CDT breath) EKG-12 LEAD Routine 11/07/2019 7:38 AM CDT POCT GLUCOSE Routine 11/07/2019 Results for (AUTOMATED) 6:14 AM CDT this procedure are in the results section. POCT GLUCOSE Routine 11/07/2019 Results for (AUTOMATED) 12:11 AM CDT this procedure are in the results section. ACTIVATED PARTIAL Routine 11/06/2019 Results fo r THRMPLAS TAMMI 8:46 PM CDT this procedure are in the results section. POCT GLUCOSE Routine 11/06/2019 Results for (AUTOMATED) 6:04 PM CDT this procedure are in the results section. POCT GLUCOSE Routine 11/06/2019 Results for (AUTOMATED) 12:11 PM CDT this procedure are in the results section. ACTIVATED PARTIAL Routine 11/06/2019 Results fo r THRMPLAS TAMMI 8:11 AM CDT this procedure are in the results section. EKG-12 LEAD Routine 11/06/2019 7:20 AM CDT POCT GLUCOSE Routine 11/06/2019 Results for (AUTOMATED) 6:16 AM CDT this procedure are in the results section. CBC WITH DIFFERENTIAL Routine 11/06/2019 Result s for 12:07 AM CDT this procedure are in the results section. ACTIVATED PARTIAL Routine 11/06/2019 Results fo r THRMPLAS TAMMI 12:07 AM CDT this procedure are in the results section. PROTHROMBIN TIME / INR Routine 11/06/2019 Resul ts for 12:07 AM CDT this procedure are in the results section. CBC WITH DIFFERENTIAL Routine 11/06/2019 Result s for 12:07 AM CDT this procedure are in the results section. BASIC METABOLIC PANEL Routine 11/06/2019 Result s for (NA, K, CL, CO2, 12:07 AM CDT this proced ure GLUCOSE, BUN, are in the CREATININE, CA) results section. MAGNESIUM Routine 11/06/2019 Results for 12:07 AM CDT this procedure are in the results section. POCT GLUCOSE Routine 11/05/2019 Results for (AUTOMATED) 11:27 PM CDT this procedure are in the results section. POCT GLUCOSE Routine 11/05/2019 Results for (AUTOMATED) 5:07 PM CDT this procedure are in the results section. POCT GLUCOSE Routine 11/05/2019 Results for (AUTOMATED) 12:25 PM CDT this procedure are in the results section. ACTIVATED PARTIAL Routine 11/05/2019 Results fo r THRMPLAS TAMMI 11:18 AM CDT this procedure are in the results section. EKG-12 LEAD Routine 11/05/2019 8:13 AM CDT POCT GLUCOSE Routine 11/05/2019 Results for (AUTOMATED) 6:31 AM CDT this procedure are in the results section. PROTHROMBIN TIME / INR Routine 11/05/2019 Resul ts for 3:53 AM CDT this procedure are in the results section. POCT GLUCOSE Routine 11/05/2019 Results for (AUTOMATED) 12:43 AM CDT this procedure are in the results section. ACTIVATED PARTIAL Routine 11/04/2019 Results fo r THRMPLAS TAMMI 10:20 PM CDT this procedure are in the results section. POCT GLUCOSE Routine 11/04/2019 Results for (AUTOMATED) 5:35 PM CDT this procedure are in the results section. POCT GLUCOSE Routine 11/04/2019 Results for (AUTOMATED) 12:15 PM CDT this procedure are in the results section. ACTIVATED PARTIAL Routine 11/04/2019 Results fo r THRMPLAS TAMMI 9:45 AM CDT this procedure are in the results section. EKG-12 LEAD Routine 11/04/2019 8:01 AM CDT POCT GLUCOSE Routine 11/04/2019 Results for (AUTOMATED) 6:06 AM CDT this procedure are in the results section. WARFARIN Add-on 11/04/2019 Results for PHARMACOGENETICS TEST 3:03 AM CDT this p rocedure (CYP2C9 & [id number]) are in the results section. CBC WITH DIFFERENTIAL Routine 11/04/2019 Result s for 3:03 AM CDT this procedure are in the results section. ACTIVATED PARTIAL Routine 11/04/2019 Results fo r THRMPLAS TAMMI 3:03 AM CDT this procedure are in the results section. PROTHROMBIN TIME / INR Routine 11/04/2019 Resul ts for 3:03 AM CDT this procedure are in the results section. CBC WITH DIFFERENTIAL Routine 11/04/2019 Result s for 3:03 AM CDT this procedure are in the results section. BASIC METABOLIC PANEL Routine 11/04/2019 Result s for (NA, K, CL, CO2, 3:03 AM CDT this proced ure GLUCOSE, BUN, are in the CREATININE, CA) results section. MAGNESIUM Routine 11/04/2019 Results for 3:03 AM CDT this procedure are in the results section. POCT GLUCOSE Routine 11/04/2019 Results for (AUTOMATED) 12:06 AM CDT this procedure are in the results section. POCT GLUCOSE Routine 11/03/2019 Results for (AUTOMATED) 5:44 PM CDT this procedure are in the results section. ACTIVATED PARTIAL Routine 11/03/2019 Results fo r THRMPLAS TAMMI 2:50 PM CDT this procedure are in the results section. POCT GLUCOSE Routine 11/03/2019 Results for (AUTOMATED) 12:01 PM CDT this procedure are in the results section. POCT GLUCOSE Routine 11/03/2019 Results for (AUTOMATED) 6:12 AM CDT this procedure are in the results section. ACTIVATED PARTIAL Routine 11/03/2019 Results fo r THRMPLAS TAMMI 12:49 AM CDT this procedure are in the results section. PROTHROMBIN TIME / INR Routine 11/03/2019 Resul ts for 12:49 AM CDT this procedure are in the results section. POCT GLUCOSE Routine 11/02/2019 Results for (AUTOMATED) 11:54 PM CDT this procedure are in the results section. POCT GLUCOSE Routine 11/02/2019 Results for (AUTOMATED) 6:35 PM CDT this procedure are in the results section. ACTIVATED PARTIAL Routine 11/02/2019 Results fo r THRMPLAS TAMMI 12:40 PM CDT this procedure are in the results section. POCT GLUCOSE Routine 11/02/2019 Results for (AUTOMATED) 12:23 PM CDT this procedure are in the results section. EKG-12 LEAD Routine 11/02/2019 9:01 AM CDT EKG-12 LEAD Routine 11/02/2019 8:19 AM CDT CBC WITH DIFFERENTIAL Routine 11/02/2019 Result s for 4:23 AM CDT this procedure are in the results section. ACTIVATED PARTIAL Routine 11/02/2019 Results fo r THRMPLAS TAMMI 4:23 AM CDT this procedure are in the results section. PROTHROMBIN TIME / INR Routine 11/02/2019 Resul ts for 4:23 AM CDT this procedure are in the results section. CBC WITH DIFFERENTIAL Routine 11/02/2019 Result s for 4:23 AM CDT this procedure are in the results section. BASIC METABOLIC PANEL Routine 11/02/2019 Result s for (NA, K, CL, CO2, 4:23 AM CDT this proced ure GLUCOSE, BUN, are in the CREATININE, CA) results section. MAGNESIUM Routine 11/02/2019 Results for 4:23 AM CDT this procedure are in the results section. POCT GLUCOSE Routine 11/01/2019 Results for (AUTOMATED) 11:33 PM CDT this procedure are in the results section. POCT GLUCOSE Routine 11/01/2019 Results for (AUTOMATED) 6:33 PM CDT this procedure are in the results section. ACTIVATED PARTIAL Routine 11/01/2019 Results fo r THRMPLAS TAMMI 6:15 PM CDT this procedure are in the results section. TROPONIN I Routine 11/01/2019 Results for 6:15 PM CDT this procedure are in the results section. POCT GLUCOSE Routine 11/01/2019 Results for (AUTOMATED) 12:16 PM CDT this procedure are in the results section. XR CHEST 1 VW Routine 11/01/2019 SOB (shortness of Results f or 8:57 AM CDT breath) this procedure are in the results section. ECHO ROUTINE W/DOPPLER STAT 11/01/2019 SOB (shortness of COLOR 8:32 AM CDT breath) ACTIVATED PARTIAL Routine 11/01/2019 Results fo r THRMPLAS TAMMI 7:44 AM CDT this procedure are in the results section. LIPID PANEL Add-on 11/01/2019 Results for (29757)(TOTAL 7:41 AM CDT this procedure CHOLESTEROL, are in the TRIGLYCERIDES, HDL) results section. BASIC METABOLIC PANEL Add-on 11/01/2019 Result s for (NA, K, CL, CO2, 7:41 AM CDT this proced ure GLUCOSE, BUN, are in the CREATININE, CA) results section. TROPONIN I Routine 11/01/2019 Results for 7:41 AM CDT this procedure are in the results section. MAGNESIUM Add-on 11/01/2019 Results for 7:41 AM CDT this procedure are in the results section. EKG-12 LEAD Routine 11/01/2019 7:26 AM CDT POCT GLUCOSE Routine 11/01/2019 Results for (AUTOMATED) 6:48 AM CDT this procedure are in the results section. ACTIVATED PARTIAL Routine 11/01/2019 Results fo r THRMPLAS TAMMI 1:17 AM CDT this procedure are in the results section. PROTHROMBIN TIME / INR Routine 11/01/2019 Resul ts for 1:17 AM CDT this procedure are in the results section. POCT GLUCOSE Routine 10/31/2019 Results for (AUTOMATED) 11:29 PM CDT this procedure are in the results section. POCT GLUCOSE Routine 10/31/2019 Results for (AUTOMATED) 6:03 PM CDT this procedure are in the results section. ACTIVATED PARTIAL Routine 10/31/2019 Results fo r THRMPLAS TAMMI 5:19 PM CDT this procedure are in the results section. PROTHROMBIN TIME / INR Routine 10/31/2019 Resul ts for 1:03 PM CDT this procedure are in the results section. POCT GLUCOSE Routine 10/31/2019 Results for (AUTOMATED) 12:07 PM CDT this procedure are in the results section. XR KNEE 3 VW LEFT Routine 10/31/2019 SOB (shortness of Resul ts for 10:46 AM CDT breath) this procedure are in the results section. EKG-12 LEAD Routine 10/31/2019 8:35 AM CDT POCT GLUCOSE Routine 10/31/2019 Results for (AUTOMATED) 6:08 AM CDT this procedure are in the results section. CBC WITH DIFFERENTIAL Routine 10/31/2019 Result s for 4:41 AM CDT this procedure are in the results section. ACTIVATED PARTIAL Routine 10/31/2019 Results fo r THRMPLAS TAMMI 4:41 AM CDT this procedure are in the results section. CBC WITH DIFFERENTIAL Routine 10/31/2019 Result s for 4:41 AM CDT this procedure are in the results section. BASIC METABOLIC PANEL Routine 10/31/2019 Result s for (NA, K, CL, CO2, 4:41 AM CDT this proced ure GLUCOSE, BUN, are in the CREATININE, CA) results section. MAGNESIUM Routine 10/31/2019 Results for 4:41 AM CDT this procedure are in the results section. POCT GLUCOSE Routine 10/31/2019 Results for (AUTOMATED) 1:24 AM CDT this procedure are in the results section. ACTIVATED PARTIAL Routine 10/30/2019 Results fo r THRMPLAS TAMMI 6:28 PM CDT this procedure are in the results section. POCT GLUCOSE Routine 10/30/2019 Results for (AUTOMATED) 6:05 PM CDT this procedure are in the results section. POCT GLUCOSE Routine 10/30/2019 Results for (AUTOMATED) 12:18 PM CDT this procedure are in the results section. ACTIVATED PARTIAL Routine 10/30/2019 Results fo r THRMPLAS TAMMI 10:40 AM CDT this procedure are in the results section. ECHO ROUTINE W/DOPPLER Routine 10/30/2019 SOB (shortness of COLOR 10:20 AM CDT breath) POCT GLUCOSE Routine 10/30/2019 Results for (AUTOMATED) 6:19 AM CDT this procedure are in the results section. ACTIVATED PARTIAL Routine 10/30/2019 Results fo r THRMPLAS TAMMI 3:38 AM CDT this procedure are in the results section. POCT GLUCOSE Routine 10/30/2019 Results for (AUTOMATED) 1:15 AM CDT this procedure are in the results section. POCT GLUCOSE Routine 10/29/2019 Results for (AUTOMATED) 6:07 PM CDT this procedure are in the results section. FL BARIUM SWALLOW Routine 10/29/2019 SOB (shortness of Resul ts for ESOPHAGUS 3:55 PM CDT breath) this procedure are in the results section. CT CHEST PULMONARY Routine 10/29/2019 SOB (shortness of Resu lts for ANGIOGRAM 3:09 PM CDT breath) this procedure are in the results section. POCT GLUCOSE Routine 10/29/2019 Results for (AUTOMATED) 12:54 PM CDT this procedure are in the results section. EKG-12 LEAD Routine 10/29/2019 8:19 AM CDT POCT GLUCOSE Routine 10/29/2019 Results for (AUTOMATED) 6:06 AM CDT this procedure are in the results section. CBC WITH DIFFERENTIAL Routine 10/29/2019 Result s for 4:47 AM CDT this procedure are in the results section. CBC WITH DIFFERENTIAL Routine 10/29/2019 Result s for 4:47 AM CDT this procedure are in the results section. BASIC METABOLIC PANEL Routine 10/29/2019 Result s for (NA, K, CL, CO2, 4:47 AM CDT this proced ure GLUCOSE, BUN, are in the CREATININE, CA) results section. MAGNESIUM Routine 10/29/2019 Results for 4:47 AM CDT this procedure are in the results section. POCT GLUCOSE Routine 10/29/2019 Results for (AUTOMATED) 12:39 AM CDT this procedure are in the results section. POCT GLUCOSE Routine 10/29/2019 Results for (AUTOMATED) 12:21 AM CDT this procedure are in the results section. POCT GLUCOSE Routine 10/28/2019 Results for (AUTOMATED) 5:48 PM CDT this procedure are in the results section. FL MODIFIED BARIUM Routine 10/28/2019 SOB (shortness of Resu lts for SWALLOW 4:23 PM CDT breath) this procedure are in the results section. POCT GLUCOSE Routine 10/28/2019 Results for (AUTOMATED) 12:10 PM CDT this procedure are in the results section. POCT GLUCOSE Routine 10/28/2019 Results for (AUTOMATED) 6:00 AM CDT this procedure are in the results section. POCT GLUCOSE Routine 10/27/2019 Results for (AUTOMATED) 11:52 PM CDT this procedure are in the results section. POCT GLUCOSE Routine 10/27/2019 Results for (AUTOMATED) 5:47 PM CDT this procedure are in the results section. POCT GLUCOSE Routine 10/27/2019 Results for (AUTOMATED) 12:16 PM CDT this procedure are in the results section. POCT GLUCOSE Routine 10/27/2019 Results for (AUTOMATED) 6:07 AM CDT this procedure are in the results section. CBC WITH DIFFERENTIAL Routine 10/27/2019 Result s for 4:30 AM CDT this procedure are in the results section. CBC WITH DIFFERENTIAL Routine 10/27/2019 Result s for 4:30 AM CDT this procedure are in the results section. BASIC METABOLIC PANEL Routine 10/27/2019 Result s for (NA, K, CL, CO2, 4:30 AM CDT this proced ure GLUCOSE, BUN, are in the CREATININE, CA) results section. MAGNESIUM Routine 10/27/2019 Results for 4:30 AM CDT this procedure are in the results section. POCT GLUCOSE Routine 10/26/2019 Results for (AUTOMATED) 11:59 PM CDT this procedure are in the results section. POCT GLUCOSE Routine 10/26/2019 Results for (AUTOMATED) 6:02 PM CDT this procedure are in the results section. POCT GLUCOSE Routine 10/26/2019 Results for (AUTOMATED) 12:38 PM CDT this procedure are in the results section. EKG-12 LEAD Routine 10/26/2019 11:16 AM CDT CBC WITH DIFFERENTIAL Routine 10/26/2019 Result s for 6:04 AM CDT this procedure are in the results section. CBC WITH DIFFERENTIAL Routine 10/26/2019 Result s for 6:04 AM CDT this procedure are in the results section. BASIC METABOLIC PANEL Routine 10/26/2019 Result s for (NA, K, CL, CO2, 6:04 AM CDT this proced ure GLUCOSE, BUN, are in the CREATININE, CA) results section. MAGNESIUM Routine 10/26/2019 Results for 6:04 AM CDT this procedure are in the results section. POCT GLUCOSE Routine 10/26/2019 Results for (AUTOMATED) 6:03 AM CDT this procedure are in the results section. POCT GLUCOSE Routine 10/26/2019 Results for (AUTOMATED) 12:51 AM CDT this procedure are in the results section. POCT GLUCOSE Routine 10/25/2019 Results for (AUTOMATED) 7:47 PM CDT this procedure are in the results section. POCT GLUCOSE Routine 10/25/2019 Results for (AUTOMATED) 12:55 PM CDT this procedure are in the results section. POCT GLUCOSE Routine 10/25/2019 Results for (AUTOMATED) 5:59 AM CDT this procedure are in the results section. CBC WITH DIFFERENTIAL Routine 10/25/2019 Result s for 4:54 AM CDT this procedure are in the results section. PROCALCITONIN Routine 10/25/2019 Results for 4:54 AM CDT this procedure are in the results section. ANTI-SCL-70 Add-on 10/25/2019 Results for 4:54 AM CDT this procedure are in the results section. N-TERMINAL PRO-BNP Routine 10/25/2019 Results f or 4:54 AM CDT this procedure are in the results section. ANTI-NUCLEAR ANTIBODY Routine 10/25/2019 Result s for TITER 4:54 AM CDT this procedure are in the results section. ANTI-NUCLEAR ANTIBODY Add-on 10/25/2019 Result s for SCREEN 4:54 AM CDT this procedure are in the results section. CBC WITH DIFFERENTIAL Routine 10/25/2019 Result s for 4:54 AM CDT this procedure are in the results section. BASIC METABOLIC PANEL Routine 10/25/2019 Result s for (NA, K, CL, CO2, 4:54 AM CDT this proced ure GLUCOSE, BUN, are in the CREATININE, CA) results section. POCT GLUCOSE Routine 10/25/2019 Results for (AUTOMATED) 12:24 AM CDT this procedure are in the results section. POCT GLUCOSE Routine 10/24/2019 Results for (AUTOMATED) 6:43 PM CDT this procedure are in the results section. XR CHEST 1 VW STAT 10/24/2019 Hypoxia Results for 6:39 PM CDT this procedure are in the results section. AC PANEL 20 + LACTIC Routine 10/24/2019 Results for ACID 5:36 PM CDT this procedure are in the results section. POCT GLUCOSE Routine 10/24/2019 Results for (AUTOMATED) 12:01 PM CDT this procedure are in the results section. EKG-12 LEAD Routine 10/24/2019 11:02 AM CDT POCT GLUCOSE Routine 10/24/2019 Results for (AUTOMATED) 6:00 AM CDT this procedure are in the results section. POCT GLUCOSE Routine 10/24/2019 Results for (AUTOMATED) 12:10 AM CDT this procedure are in the results section. POCT GLUCOSE Routine 10/23/2019 Results for (AUTOMATED) 4:48 PM CDT this procedure are in the results section. POCT GLUCOSE Routine 10/23/2019 Results for (AUTOMATED) 12:05 PM CDT this procedure are in the results section. BASIC METABOLIC PANEL JEFF 10/23/2019 Result s for (NA, K, CL, CO2, 5:18 AM CDT this proced ure GLUCOSE, BUN, are in the CREATININE, CA) results section. MAGNESIUM JEFF 10/23/2019 Results for 5:18 AM CDT this procedure are in the results section. POCT GLUCOSE Routine 10/23/2019 Results for (AUTOMATED) 1:17 AM CDT this procedure are in the results section. POCT GLUCOSE Routine 10/22/2019 Results for (AUTOMATED) 6:06 PM CDT this procedure are in the results section. POCT GLUCOSE Routine 10/22/2019 Results for (AUTOMATED) 12:06 PM CDT this procedure are in the results section. POCT GLUCOSE Routine 10/22/2019 Results for (AUTOMATED) 5:56 AM CDT this procedure are in the results section. POCT GLUCOSE Routine 10/22/2019 Results for (AUTOMATED) 12:33 AM CDT this procedure are in the results section. POCT GLUCOSE Routine 10/21/2019 Results for (AUTOMATED) 5:51 PM CDT this procedure are in the results section. POCT GLUCOSE Routine 10/21/2019 Results for (AUTOMATED) 11:36 AM CDT this procedure are in the results section. BASIC METABOLIC PANEL JEFF 10/21/2019 Result s for (NA, K, CL, CO2, 5:30 AM CDT this proced ure GLUCOSE, BUN, are in the CREATININE, CA) results section. MAGNESIUM JEFF 10/21/2019 Results for 5:30 AM CDT this procedure are in the results section. POCT GLUCOSE Routine 10/20/2019 Results for (AUTOMATED) 6:30 PM CDT this procedure are in the results section. POCT GLUCOSE Routine 10/20/2019 Results for (AUTOMATED) 11:29 AM CDT this procedure are in the results section. PROFILE / HEMOGRAM STAT 10/20/2019 Results f or 6:08 AM CDT this procedure are in the results section. ABG+COOX+NA+K+GLU+CA2+ JEFF 10/20/2019 Resul ts for 5:34 AM CDT this procedure are in the results section. POCT GLUCOSE Routine 10/20/2019 Results for (AUTOMATED) 1:25 AM CDT this procedure are in the results section. POCT GLUCOSE Routine 10/19/2019 Results for (AUTOMATED) 6:43 PM CDT this procedure are in the results section. POCT GLUCOSE Routine 10/19/2019 Results for (AUTOMATED) 1:18 PM CDT this procedure are in the results section. XR ABDOMEN 1 VW STAT 10/19/2019 SOB (shortness of Results for 11:50 AM CDT breath) this procedure are in the results section. POCT GLUCOSE Routine 10/19/2019 Results for (AUTOMATED) 12:57 AM CDT this procedure are in the results section. POCT GLUCOSE Routine 10/18/2019 Results for (AUTOMATED) 6:05 PM CDT this procedure are in the results section. XR KUB Routine 10/18/2019 Acute respiratory Results fo r 5:37 PM CDT failure with this procedure hypercapnia are in the results section. POCT GLUCOSE Routine 10/18/2019 Results for (AUTOMATED) 2:16 PM CDT this procedure are in the results section. BASIC METABOLIC PANEL JEFF 10/18/2019 Result s for (NA, K, CL, CO2, 8:00 AM CDT this proced ure GLUCOSE, BUN, are in the CREATININE, CA) results section. MAGNESIUM JEFF 10/18/2019 Results for 8:00 AM CDT this procedure are in the results section. POCT GLUCOSE Routine 10/18/2019 Results for (AUTOMATED) 7:30 AM CDT this procedure are in the results section. PROFILE / HEMOGRAM JEFF 10/18/2019 Results f or 5:37 AM CDT this procedure are in the results section. POCT GLUCOSE Routine 10/18/2019 Results for (AUTOMATED) 1:39 AM CDT this procedure are in the results section. POCT GLUCOSE Routine 10/17/2019 Results for (AUTOMATED) 6:14 PM CDT this procedure are in the results section. POCT GLUCOSE Routine 10/17/2019 Results for (AUTOMATED) 11:52 AM CDT this procedure are in the results section. XR CHEST 1 VW Routine 10/17/2019 Acute on chronic Results fo r 8:16 AM CDT respiratory failure this pro cedure with hypercapnia are in the results section. POCT GLUCOSE Routine 10/17/2019 Results for (AUTOMATED) 5:12 AM CDT this procedure are in the results section. POCT GLUCOSE Routine 10/16/2019 Results for (AUTOMATED) 11:52 PM CDT this procedure are in the results section. POCT GLUCOSE Routine 10/16/2019 Results for (AUTOMATED) 1:57 PM CDT this procedure are in the results section. POCT GLUCOSE Routine 10/16/2019 Results for (AUTOMATED) 6:08 AM CDT this procedure are in the results section. POCT GLUCOSE Routine 10/16/2019 Results for (AUTOMATED) 12:03 AM CDT this procedure are in the results section. POCT GLUCOSE Routine 10/15/2019 Results for (AUTOMATED) 4:26 PM CDT this procedure are in the results section. POCT GLUCOSE Routine 10/15/2019 Results for (AUTOMATED) 11:57 AM CDT this procedure are in the results section. BASIC METABOLIC PANEL JEFF 10/15/2019 Result s for (NA, K, CL, CO2, 5:26 AM CDT this proced ure GLUCOSE, BUN, are in the CREATININE, CA) results section. MAGNESIUM JEFF 10/15/2019 Results for 5:26 AM CDT this procedure are in the results section. POCT GLUCOSE Routine 10/15/2019 Results for (AUTOMATED) 5:13 AM CDT this procedure are in the results section. POCT GLUCOSE Routine 10/14/2019 Results for (AUTOMATED) 11:39 PM CDT this procedure are in the results section. POCT GLUCOSE Routine 10/14/2019 Results for (AUTOMATED) 7:12 PM CDT this procedure are in the results section. POCT GLUCOSE Routine 10/14/2019 Results for (AUTOMATED) 11:49 AM CDT this procedure are in the results section. CBC WITH DIFFERENTIAL Routine 10/14/2019 Result s for 5:39 AM CDT this procedure are in the results section. CBC WITH DIFFERENTIAL Routine 10/14/2019 Result s for 5:39 AM CDT this procedure are in the results section. BASIC METABOLIC PANEL JEFF 10/14/2019 Result s for (NA, K, CL, CO2, 5:39 AM CDT this proced ure GLUCOSE, BUN, are in the CREATININE, CA) results section. MAGNESIUM JEFF 10/14/2019 Results for 5:39 AM CDT this procedure are in the results section. POCT GLUCOSE Routine 10/14/2019 Results for (AUTOMATED) 5:38 AM CDT this procedure are in the results section. POCT GLUCOSE Routine 10/14/2019 Results for (AUTOMATED) 12:28 AM CDT this procedure are in the results section. POCT GLUCOSE Routine 10/13/2019 Results for (AUTOMATED) 7:18 PM CDT this procedure are in the results section. ACUTE CARE ARTERIAL JEFF 10/13/2019 Results for BLOOD GAS 12:58 PM CDT this procedure are in the results section. POCT GLUCOSE Routine 10/13/2019 Results for (AUTOMATED) 11:09 AM CDT this procedure are in the results section. POCT GLUCOSE Routine 10/13/2019 Results for (AUTOMATED) 5:26 AM CDT this procedure are in the results section. CBC WITH DIFFERENTIAL Routine 10/13/2019 Result s for 2:11 AM CDT this procedure are in the results section. CBC WITH DIFFERENTIAL Routine 10/13/2019 Result s for 2:11 AM CDT this procedure are in the results section. BASIC METABOLIC PANEL JEFF 10/13/2019 Result s for (NA, K, CL, CO2, 2:11 AM CDT this proced ure GLUCOSE, BUN, are in the CREATININE, CA) results section. MAGNESIUM JEFF 10/13/2019 Results for 2:11 AM CDT this procedure are in the results section. POCT GLUCOSE Routine 10/13/2019 Results for (AUTOMATED) 12:07 AM CDT this procedure are in the results section. POCT GLUCOSE Routine 10/12/2019 Results for (AUTOMATED) 5:58 PM CDT this procedure are in the results section. ACUTE CARE ARTERIAL JEFF 10/12/2019 Results for BLOOD GAS 4:47 PM CDT this procedure are in the results section. POCT GLUCOSE Routine 10/12/2019 Results for (AUTOMATED) 11:55 AM CDT this procedure are in the results section. AC PANEL 20 + LACTIC STAT 10/12/2019 Results for ACID 10:11 AM CDT this procedure are in the results section. CBC WITH DIFFERENTIAL Routine 10/12/2019 Result s for 5:08 AM CDT this procedure are in the results section. CBC WITH DIFFERENTIAL Routine 10/12/2019 Result s for 5:08 AM CDT this procedure are in the results section. BASIC METABOLIC PANEL JEFF 10/12/2019 Result s for (NA, K, CL, CO2, 5:08 AM CDT this proced ure GLUCOSE, BUN, are in the CREATININE, CA) results section. MAGNESIUM JEFF 10/12/2019 Results for 5:08 AM CDT this procedure are in the results section. POCT GLUCOSE Routine 10/12/2019 Results for (AUTOMATED) 12:06 AM CDT this procedure are in the results section. POCT GLUCOSE Routine 10/11/2019 Results for (AUTOMATED) 6:10 PM CDT this procedure are in the results section. POCT GLUCOSE Routine 10/11/2019 Results for (AUTOMATED) 11:56 AM CDT this procedure are in the results section. XR CHEST 1 VW JEFF 10/11/2019 SOB (shortness of Results f or 10:16 AM CDT breath) this procedure are in the results section. POCT GLUCOSE Routine 10/11/2019 Results for (AUTOMATED) 5:20 AM CDT this procedure are in the results section. CBC WITH DIFFERENTIAL Routine 10/11/2019 Result s for 5:09 AM CDT this procedure are in the results section. CBC WITH DIFFERENTIAL Routine 10/11/2019 Result s for 5:09 AM CDT this procedure are in the results section. BASIC METABOLIC PANEL JEFF 10/11/2019 Result s for (NA, K, CL, CO2, 5:09 AM CDT this proced ure GLUCOSE, BUN, are in the CREATININE, CA) results section. MAGNESIUM JEFF 10/11/2019 Results for 5:09 AM CDT this procedure are in the results section. POCT GLUCOSE Routine 10/10/2019 Results for (AUTOMATED) 11:47 PM CDT this procedure are in the results section. POCT GLUCOSE Routine 10/10/2019 Results for (AUTOMATED) 6:09 PM CDT this procedure are in the results section. NM HEPATOBILIARY Routine 10/10/2019 Acute respiratory Result s for 3:40 PM CDT failure with this procedure hypercapnia are in the results section. POCT GLUCOSE Routine 10/10/2019 Results for (AUTOMATED) 12:03 PM CDT this procedure are in the results section. POCT GLUCOSE Routine 10/10/2019 Results for (AUTOMATED) 5:28 AM CDT this procedure are in the results section. CBC WITH DIFFERENTIAL Routine 10/10/2019 Result s for 2:23 AM CDT this procedure are in the results section. CBC WITH DIFFERENTIAL Routine 10/10/2019 Result s for 2:23 AM CDT this procedure are in the results section. BASIC METABOLIC PANEL JEFF 10/10/2019 Result s for (NA, K, CL, CO2, 2:23 AM CDT this proced ure GLUCOSE, BUN, are in the CREATININE, CA) results section. HEPATIC FUNCTION PANEL JEFF 10/10/2019 Resul ts for (88039) 2:23 AM CDT this procedure (ALB,T.PRO,BILI are in the T,BU/BC,ALT,AST,ALK results PHOS) section. MAGNESIUM JEFF 10/10/2019 Results for 2:23 AM CDT this procedure are in the results section. POCT GLUCOSE Routine 10/10/2019 Results for (AUTOMATED) 12:49 AM CDT this procedure are in the results section. XR KUB STAT 10/09/2019 SOB (shortness of Results fo r 10:09 PM CDT breath) this procedure are in the results section. POCT GLUCOSE Routine 10/09/2019 Results for (AUTOMATED) 5:43 PM CDT this procedure are in the results section. POCT GLUCOSE Routine 10/09/2019 Results for (AUTOMATED) 11:53 AM CDT this procedure are in the results section. POCT GLUCOSE Routine 10/09/2019 Results for (AUTOMATED) 6:46 AM CDT this procedure are in the results section. HIV 1/2 AG-AB WITH Add-on 10/09/2019 Results f or REFLEX 4:00 AM CDT this procedure are in the results section. CBC WITH DIFFERENTIAL Routine 10/09/2019 Result s for 4:00 AM CDT this procedure are in the results section. CBC WITH DIFFERENTIAL Routine 10/09/2019 Result s for 4:00 AM CDT this procedure are in the results section. BASIC METABOLIC PANEL JEFF 10/09/2019 Result s for (NA, K, CL, CO2, 4:00 AM CDT this proced ure GLUCOSE, BUN, are in the CREATININE, CA) results section. HEPATIC FUNCTION PANEL JEFF 10/09/2019 Resul ts for ([id number]) 4:00 AM CDT this procedure (ALB,T.PRO,BILI are in the T,BU/BC,ALT,AST,ALK results PHOS) section. MAGNESIUM JEFF 10/09/2019 Results for 4:00 AM CDT this procedure are in the results section. POCT GLUCOSE Routine 10/09/2019 Results for (AUTOMATED) 12:14 AM CDT this procedure are in the results section. EKG-12 LEAD Routine 10/08/2019 8:52 PM CDT POCT GLUCOSE Routine 10/08/2019 Results for (AUTOMATED) 5:42 PM CDT this procedure are in the results section. POCT GLUCOSE Routine 10/08/2019 Results for (AUTOMATED) 11:48 AM CDT this procedure are in the results section. POCT GLUCOSE Routine 10/08/2019 Results for (AUTOMATED) 11:26 AM CDT this procedure are in the results section. CBC WITH DIFFERENTIAL Routine 10/08/2019 Result s for 5:07 AM CDT this procedure are in the results section. CBC WITH DIFFERENTIAL Routine 10/08/2019 Result s for 5:07 AM CDT this procedure are in the results section. BASIC METABOLIC PANEL JEFF 10/08/2019 Result s for (NA, K, CL, CO2, 5:07 AM CDT this proced ure GLUCOSE, BUN, are in the CREATININE, CA) results section. HEPATIC FUNCTION PANEL JEFF 10/08/2019 Resul ts for ([id number]) 5:07 AM CDT this procedure (ALB,T.PRO,BILI are in the T,BU/BC,ALT,AST,ALK results PHOS) section. MAGNESIUM JEFF 10/08/2019 Results for 5:07 AM CDT this procedure are in the results section. LIPASE Add-on 10/08/2019 Results for 5:07 AM CDT this procedure are in the results section. POCT GLUCOSE Routine 10/08/2019 Results for (AUTOMATED) 12:21 AM CDT this procedure are in the results section. POCT GLUCOSE Routine 10/07/2019 Results for (AUTOMATED) 6:11 PM CDT this procedure are in the results section. POCT GLUCOSE Routine 10/07/2019 Results for (AUTOMATED) 11:50 AM CDT this procedure are in the results section. XR CHEST 1 VW STAT 10/07/2019 SOB (shortness of Results f or 10:40 AM CDT breath) this procedure are in the results section. CBC WITH DIFFERENTIAL Routine 10/07/2019 Result s for 5:07 AM CDT this procedure are in the results section. POCT GLUCOSE Routine 10/07/2019 Results for (AUTOMATED) 5:07 AM CDT this procedure are in the results section. CBC WITH DIFFERENTIAL Routine 10/07/2019 Result s for 5:07 AM CDT this procedure are in the results section. BASIC METABOLIC PANEL JEFF 10/07/2019 Result s for (NA, K, CL, CO2, 5:07 AM CDT this proced ure GLUCOSE, BUN, are in the CREATININE, CA) results section. MAGNESIUM JEFF 10/07/2019 Results for 5:07 AM CDT this procedure are in the results section. POCT GLUCOSE Routine 10/06/2019 Results for (AUTOMATED) 10:56 PM CDT this procedure are in the results section. POCT GLUCOSE Routine 10/06/2019 Results for (AUTOMATED) 6:36 PM CDT this procedure are in the results section. US ABDOMEN LIMITED JEFF 10/06/2019 SOB (shortness of Resu lts for 1:25 PM CDT breath) this procedure are in the results section. POCT GLUCOSE Routine 10/06/2019 Results for (AUTOMATED) 1:23 PM CDT this procedure are in the results section. POCT GLUCOSE Routine 10/06/2019 Results for (AUTOMATED) 4:54 AM CDT this procedure are in the results section. CBC WITH DIFFERENTIAL Routine 10/06/2019 Result s for 3:49 AM CDT this procedure are in the results section. CBC WITH DIFFERENTIAL Routine 10/06/2019 Result s for 3:49 AM CDT this procedure are in the results section. HEPATIC FUNCTION PANEL Add-on 10/06/2019 Resul ts for (32215) 3:49 AM CDT this procedure (ALB,T.PRO,BILI are in the T,BU/BC,ALT,AST,ALK results PHOS) section. MAGNESIUM JEFF 10/06/2019 Results for 3:49 AM CDT this procedure are in the results section. POCT GLUCOSE Routine 10/05/2019 Results for (AUTOMATED) 11:56 PM CDT this procedure are in the results section. SPUTUM CULTURE [facility] 10/05/2019 Results for 10:53 PM CDT this procedure are in the results section. URINALYSIS [facility] 10/05/2019 Results for 10:47 PM CDT this procedure are in the results section. URINE CULTURE [facility] 10/05/2019 Results for 10:45 PM CDT this procedure are in the results section. BLOOD CULTURE SCREEN [facility] 10/05/2019 Results for 10:25 PM CDT this procedure are in the results section. BLOOD CULTURE SCREEN [facility] 10/05/2019 Results for 10:24 PM CDT this procedure are in the results section. POCT GLUCOSE Routine 10/05/2019 Results for (AUTOMATED) 5:55 PM CDT this procedure are in the results section. POCT GLUCOSE Routine 10/05/2019 Results for (AUTOMATED) 11:37 AM CDT this procedure are in the results section. FREE T4 [facility] 10/05/2019 Results for 10:56 AM CDT this procedure are in the results section. POCT GLUCOSE Routine 10/05/2019 Results for (AUTOMATED) 5:34 AM CDT this procedure are in the results section. BASIC METABOLIC PANEL [facility] 10/05/2019 Result s for (NA, K, CL, CO2, 2:40 AM CDT this proced ure GLUCOSE, BUN, are in the CREATININE, CA) results section. THYROID STIMULATING Add-on 10/05/2019 Results for HORMONE 2:40 AM CDT this procedure are in the results section. MAGNESIUM [facility] 10/05/2019 Results for 2:40 AM CDT this procedure are in the results section. POCT GLUCOSE Routine 10/04/2019 Results for (AUTOMATED) 11:26 PM CDT this procedure are in the results section. POCT GLUCOSE Routine 10/04/2019 Results for (AUTOMATED) 6:17 PM CDT this procedure are in the results section. XR CHEST 1 VW [facility] 10/04/2019 SOB (shortness of Results f or 3:50 PM CDT breath) this procedure Hypoxia are in the Acute on chronic results congestive heart section. failure, unspecified heart failure ty pe Respiratory failure, unspecified chronicity, unspecified whether with hypoxia or hypercapnia Respiratory acid osis Bilateral leg ed valeria Acute respiratory failure with hypercapnia Lower abdominal pain Acute on chronic respiratory failure with hypercapnia Choledocholithia sis Morbid obesity with BMI of 70 and over, adult Symptomatic anem ia Acute on chronic diastolic CHF (congestive heart failure) Metabolic encephalopathy TRACHEOSTOMY Level 4 10/04/2019 Acute on chronic (within 0-5 12:47 PM CDT respiratory failure days) with hypercapnia CBC WITH DIFFERENTIAL Routine 10/04/2019 Result s for 6:42 AM CDT this procedure are in the results section. CBC WITH DIFFERENTIAL Routine 10/04/2019 Result s for 6:42 AM CDT this procedure are in the results section. BASIC METABOLIC PANEL [facility] 10/04/2019 Result s for (NA, K, CL, CO2, 6:30 AM CDT this proced ure GLUCOSE, BUN, are in the CREATININE, CA) results section. MAGNESIUM [facility] 10/04/2019 Results for 6:30 AM CDT this procedure are in the results section. POCT GLUCOSE Routine 10/04/2019 Results for (AUTOMATED) 6:20 AM CDT this procedure are in the results section. POCT GLUCOSE Routine 10/04/2019 Results for (AUTOMATED) 12:19 AM CDT this procedure are in the results section. POCT GLUCOSE Routine 10/03/2019 Results for (AUTOMATED) 4:55 PM CDT this procedure are in the results section. BASIC METABOLIC PANEL [facility] 10/03/2019 Result s for (NA, K, CL, CO2, 3:07 AM CDT this proced ure GLUCOSE, BUN, are in the CREATININE, CA) results section. MAGNESIUM [facility] 10/03/2019 Results for 3:07 AM CDT this procedure are in the results section. POCT GLUCOSE Routine 10/03/2019 Results for (AUTOMATED) 12:47 AM CDT this procedure are in the results section. POCT GLUCOSE Routine 10/02/2019 Results for (AUTOMATED) 5:00 PM CDT this procedure are in the results section. XR KUB [facility] 10/02/2019 SOB (shortness of Results fo r 4:19 PM CDT breath) this procedure are in the results section. UNILATERAL VENOUS Routine 10/02/2019 DUPLEX UPPER BY 2:11 PM CDT VASCULAR LAB ACUTE CARE ARTERIAL [facility] 10/02/2019 Results for BLOOD GAS 2:11 PM CDT this procedure are in the results section. POCT GLUCOSE Routine 10/02/2019 Results for (AUTOMATED) 12:53 PM CDT this procedure are in the results section. XR KUB Routine 10/02/2019 SOB (shortness of Results fo r 11:34 AM CDT breath) this procedure are in the results section. XR KUB [facility] 10/02/2019 Lower abdominal pain Results for 6:25 AM CDT this procedure are in the results section. CBC WITH DIFFERENTIAL Routine 10/02/2019 Result s for 3:55 AM CDT this procedure are in the results section. CBC WITH DIFFERENTIAL Routine 10/02/2019 Result s for 3:55 AM CDT this procedure are in the results section. BASIC METABOLIC PANEL [facility] 10/02/2019 Result s for (NA, K, CL, CO2, 3:55 AM CDT this proced ure GLUCOSE, BUN, are in the CREATININE, CA) results section. MAGNESIUM [facility] 10/02/2019 Results for 3:55 AM CDT this procedure are in the results section. POCT GLUCOSE Routine 10/02/2019 Results for (AUTOMATED) 12:21 AM CDT this procedure are in the results section. COVID-19 (PCR [facility] 10/01/2019 Results for MOLECULAR TESTING) 4:34 PM CDT this proc edure are in the results section. BASIC METABOLIC PANEL [facility] 10/01/2019 Result s for (NA, K, CL, CO2, 4:34 PM CDT this proced ure GLUCOSE, BUN, are in the CREATININE, CA) results section. POCT GLUCOSE Routine 10/01/2019 Results for (AUTOMATED) 12:39 PM CDT this procedure are in the results section. UREA NITROGEN, URINE [facility] 10/01/2019 Results for RANDOM 8:14 AM CDT this procedure are in the results section. CREATININE, URINE [facility] 10/01/2019 Results fo r RANDOM 8:14 AM CDT this procedure are in the results section. BODY FLUID EOSINOPHIL [facility] 10/01/2019 Result s for SMEAR 8:14 AM CDT this procedure are in the results section. BASIC METABOLIC PANEL [facility] 10/01/2019 Result s for (NA, K, CL, CO2, 5:18 AM CDT this proced ure GLUCOSE, BUN, are in the CREATININE, CA) results section. MAGNESIUM [facility] 10/01/2019 Results for 5:18 AM CDT this procedure are in the results section. BASIC METABOLIC PANEL [facility] 09/30/2019 Result s for (NA, K, CL, CO2, 10:15 PM CDT this proced ure GLUCOSE, BUN, are in the CREATININE, CA) results section. POCT GLUCOSE Routine 09/30/2019 Results for (AUTOMATED) 12:25 PM CDT this procedure are in the results section. XR CHEST 1 VW [facility] 09/30/2019 Acute respiratory Results f or 11:25 AM CDT failure with this procedure hypercapnia are in the results section. POCT GLUCOSE Routine 09/30/2019 Results for (AUTOMATED) 5:17 AM CDT this procedure are in the results section. CBC WITH DIFFERENTIAL Routine 09/30/2019 Result s for 3:17 AM CDT this procedure are in the results section. CBC WITH DIFFERENTIAL Routine 09/30/2019 Result s for 3:17 AM CDT this procedure are in the results section. BASIC METABOLIC PANEL [facility] 09/30/2019 Result s for (NA, K, CL, CO2, 3:17 AM CDT this proced ure GLUCOSE, BUN, are in the CREATININE, CA) results section. HEPATIC FUNCTION PANEL Add-on 09/30/2019 Resul ts for ([id number]) 3:17 AM CDT this procedure (ALB,T.PRO,BILI are in the T,BU/BC,ALT,AST,ALK results PHOS) section. MAGNESIUM [facility]FF 09/30/2019 Results for 3:17 AM CDT this procedure are in the results section. POCT GLUCOSE Routine 09/29/2019 Results for (AUTOMATED) 11:47 PM CDT this procedure are in the results section. POCT GLUCOSE Routine 09/29/2019 Results for (AUTOMATED) 6:00 PM CDT this procedure are in the results section. AC PANEL 20 + LACTIC [facility] 09/29/2019 Results for ACID 5:34 PM CDT this procedure are in the results section. BASIC METABOLIC PANEL [facility] 09/29/2019 Result s for (NA, K, CL, CO2, 4:33 PM CDT this proced ure GLUCOSE, BUN, are in the CREATININE, CA) results section. POCT GLUCOSE Routine 09/29/2019 Results for (AUTOMATED) 12:03 PM CDT this procedure are in the results section. SARS-COV-2 IGG Add-on 09/29/2019 Results for 9:05 AM CDT this procedure are in the results section. VANCOMYCIN TROUGH [facility] 09/29/2019 Results fo r 9:05 AM CDT this procedure are in the results section. POCT GLUCOSE Routine 09/29/2019 Results for (AUTOMATED) 6:07 AM CDT this procedure are in the results section. CBC WITH DIFFERENTIAL Routine 09/29/2019 Result s for 3:47 AM CDT this procedure are in the results section. CBC WITH DIFFERENTIAL Routine 09/29/2019 Result s for 3:47 AM CDT this procedure are in the results section. BASIC METABOLIC PANEL [facility] 09/29/2019 Result s for (NA, K, CL, CO2, 3:47 AM CDT this proced ure GLUCOSE, BUN, are in the CREATININE, CA) results section. MAGNESIUM JEFF 09/29/2019 Results for 3:47 AM CDT this procedure are in the results section. POCT GLUCOSE Routine 09/28/2019 Results for (AUTOMATED) 11:21 PM CDT this procedure are in the results section. POCT GLUCOSE Routine 09/28/2019 Results for (AUTOMATED) 5:12 PM CDT this procedure are in the results section. BASIC METABOLIC PANEL [facility] 09/28/2019 Result s for (NA, K, CL, CO2, 2:27 PM CDT this proced ure GLUCOSE, BUN, are in the CREATININE, CA) results section. POCT GLUCOSE Routine 09/28/2019 Results for (AUTOMATED) 11:51 AM CDT this procedure are in the results section. POCT GLUCOSE Routine 09/28/2019 Results for (AUTOMATED) 5:29 AM CDT this procedure are in the results section. CBC WITH DIFFERENTIAL Routine 09/28/2019 Result s for 2:48 AM CDT this procedure are in the results section. CBC WITH DIFFERENTIAL Routine 09/28/2019 Result s for 2:48 AM CDT this procedure are in the results section. BASIC METABOLIC PANEL [facility] 09/28/2019 Result s for (NA, K, CL, CO2, 2:48 AM CDT this proced ure GLUCOSE, BUN, are in the CREATININE, CA) results section. MAGNESIUM JEFF 09/28/2019 Results for 2:48 AM CDT this procedure are in the results section. POCT GLUCOSE Routine 09/27/2019 Results for (AUTOMATED) 11:28 PM CDT this procedure are in the results section. VANCOMYCIN TROUGH [facility] 09/27/2019 Results fo r 9:21 PM CDT this procedure are in the results section. POCT GLUCOSE Routine 09/27/2019 Results for (AUTOMATED) 5:50 PM CDT this procedure are in the results section. BASIC METABOLIC PANEL [facility] 09/27/2019 Result s for (NA, K, CL, CO2, 5:19 PM CDT this proced ure GLUCOSE, BUN, are in the CREATININE, CA) results section. POCT GLUCOSE Routine 09/27/2019 Results for (AUTOMATED) 11:50 AM CDT this procedure are in the results section. AC PANEL 20 + LACTIC [facility] 09/27/2019 Results for ACID 7:49 AM CDT this procedure are in the results section. CBC WITH DIFFERENTIAL Routine 09/27/2019 Result s for 3:13 AM CDT this procedure are in the results section. CBC WITH DIFFERENTIAL Routine 09/27/2019 Result s for 3:13 AM CDT this procedure are in the results section. BASIC METABOLIC PANEL [facility] 09/27/2019 Result s for (NA, K, CL, CO2, 3:13 AM CDT this proced ure GLUCOSE, BUN, are in the CREATININE, CA) results section. MAGNESIUM JEFF 09/27/2019 Results for 3:13 AM CDT this procedure are in the results section. POCT GLUCOSE Routine 09/27/2019 Results for (AUTOMATED) 12:56 AM CDT this procedure are in the results section. BASIC METABOLIC PANEL [facility] 09/26/2019 Result s for (NA, K, CL, CO2, 3:52 PM CDT this proced ure GLUCOSE, BUN, are in the CREATININE, CA) results section. MAGNESIUM Add-on 09/26/2019 Results for 3:52 PM CDT this procedure are in the results section. SPUTUM CULTURE [facility] 09/26/2019 Results for 1:10 PM CDT this procedure are in the results section. XR CHEST 1 VW [facility] 09/26/2019 Acute respiratory Results f or 12:26 PM CDT failure with this procedure hypercapnia are in the results section. POCT GLUCOSE Routine 09/26/2019 Results for (AUTOMATED) 12:13 PM CDT this procedure are in the results section. BLOOD CULTURE SCREEN [facility] 09/26/2019 Results for 11:11 AM CDT this procedure are in the results section. BLOOD CULTURE SCREEN [facility] 09/26/2019 Results for 11:11 AM CDT this procedure are in the results section. URINE CULTURE [facility] 09/26/2019 Results for 11:04 AM CDT this procedure are in the results section. URINALYSIS [facility] 09/26/2019 Results for 11:04 AM CDT this procedure are in the results section. XR CHEST 1 VW STAT 09/26/2019 SOB (shortness of Results f or 10:44 AM CDT breath) this procedure are in the results section. ACUTE CARE ARTERIAL [facility] 09/26/2019 Results for BLOOD GAS 8:12 AM CDT this procedure are in the results section. CBC WITH DIFFERENTIAL Routine 09/26/2019 Result s for 3:43 AM CDT this procedure are in the results section. CBC WITH DIFFERENTIAL Routine 09/26/2019 Result s for 3:43 AM CDT this procedure are in the results section. ACUTE CARE ARTERIAL [facility] 09/26/2019 Results for BLOOD GAS 3:43 AM CDT this procedure are in the results section. BASIC METABOLIC PANEL [facility] 09/26/2019 Result s for (NA, K, CL, CO2, 3:43 AM CDT this proced ure GLUCOSE, BUN, are in the CREATININE, CA) results section. MAGNESIUM JEFF 09/26/2019 Results for 3:43 AM CDT this procedure are in the results section. POCT GLUCOSE Routine 09/26/2019 Results for (AUTOMATED) 2:02 AM CDT this procedure are in the results section. BASIC METABOLIC PANEL [facility] 09/25/2019 Result s for (NA, K, CL, CO2, 6:19 PM CDT this proced ure GLUCOSE, BUN, are in the CREATININE, CA) results section. POCT GLUCOSE Routine 09/25/2019 Results for (AUTOMATED) 5:58 PM CDT this procedure are in the results section. POCT GLUCOSE Routine 09/25/2019 Results for (AUTOMATED) 1:31 PM CDT this procedure are in the results section. POCT GLUCOSE Routine 09/25/2019 Results for (AUTOMATED) 5:56 AM CDT this procedure are in the results section. CBC WITH DIFFERENTIAL Routine 09/25/2019 Result s for 3:18 AM CDT this procedure are in the results section. CBC WITH DIFFERENTIAL Routine 09/25/2019 Result s for 3:18 AM CDT this procedure are in the results section. BASIC METABOLIC PANEL [facility] 09/25/2019 Result s for (NA, K, CL, CO2, 3:18 AM CDT this proced ure GLUCOSE, BUN, are in the CREATININE, CA) results section. MAGNESIUM JEFF 09/25/2019 Results for 3:18 AM CDT this procedure are in the results section. POCT GLUCOSE Routine 09/25/2019 Results for (AUTOMATED) 12:00 AM CDT this procedure are in the results section. POCT GLUCOSE Routine 09/24/2019 Results for (AUTOMATED) 6:13 PM CDT this procedure are in the results section. BASIC METABOLIC PANEL [facility] 09/24/2019 Result s for (NA, K, CL, CO2, 3:42 PM CDT this proced ure GLUCOSE, BUN, are in the CREATININE, CA) results section. POCT GLUCOSE Routine 09/24/2019 Results for (AUTOMATED) 11:59 AM CDT this procedure are in the results section. XR CHEST 1 VW STAT 09/24/2019 SOB (shortness of Results f or 5:10 AM CDT breath) this procedure are in the results section. CBC WITH DIFFERENTIAL Routine 09/24/2019 Result s for 3:34 AM CDT this procedure are in the results section. CBC WITH DIFFERENTIAL Routine 09/24/2019 Result s for 3:34 AM CDT this procedure are in the results section. BASIC METABOLIC PANEL [facility] 09/24/2019 Result s for (NA, K, CL, CO2, 3:34 AM CDT this proced ure GLUCOSE, BUN, are in the CREATININE, CA) results section. MAGNESIUM [facility] 09/24/2019 Results for 3:34 AM CDT this procedure are in the results section. POCT GLUCOSE Routine 09/24/2019 Results for (AUTOMATED) 12:26 AM CDT this procedure are in the results section. POCT GLUCOSE Routine 09/23/2019 Results for (AUTOMATED) 6:05 PM CDT this procedure are in the results section. BASIC METABOLIC PANEL [facility] 09/23/2019 Result s for (NA, K, CL, CO2, 2:21 PM CDT this proced ure GLUCOSE, BUN, are in the CREATININE, CA) results section. MAGNESIUM Add-on 09/23/2019 Results for 2:21 PM CDT this procedure are in the results section. PROCALCITONIN [facility] 09/23/2019 Results for 12:23 PM CDT this procedure are in the results section. POCT GLUCOSE Routine 09/23/2019 Results for (AUTOMATED) 12:02 PM CDT this procedure are in the results section. ECHO ROUTINE W/DOPPLER Routine 09/23/2019 SOB (shortness of COLOR 10:41 AM CDT breath) BASIC METABOLIC PANEL [facility] 09/23/2019 Result s for (NA, K, CL, CO2, 5:11 AM CDT this proced ure GLUCOSE, BUN, are in the CREATININE, CA) results section. MAGNESIUM [facility] 09/23/2019 Results for 5:11 AM CDT this procedure are in the results section. POCT GLUCOSE Routine 09/23/2019 Results for (AUTOMATED) 5:09 AM CDT this procedure are in the results section. POCT GLUCOSE Routine 09/23/2019 Results for (AUTOMATED) 1:25 AM CDT this procedure are in the results section. BASIC METABOLIC PANEL [facility] 09/22/2019 Result s for (NA, K, CL, CO2, 5:06 PM CDT this proced ure GLUCOSE, BUN, are in the CREATININE, CA) results section. XR CHEST 1 VW [facility] 09/22/2019 SOB (shortness of Results f or 1:50 PM CDT breath) this procedure are in the results section. BLOOD CULTURE SCREEN [facility] 09/22/2019 Results for 1:44 PM CDT this procedure are in the results section. BLOOD CULTURE SCREEN [facility] 09/22/2019 Results for 1:44 PM CDT this procedure are in the results section. MRSA / MSSA SCREEN BY [facility] 09/22/2019 Result s for PCR, NARES 12:23 PM CDT this procedure are in the results section. CBC WITH DIFFERENTIAL Routine 09/22/2019 Result s for 12:23 PM CDT this procedure are in the results section. CBC WITH DIFFERENTIAL Routine 09/22/2019 Result s for 12:23 PM CDT this procedure are in the results section. POCT GLUCOSE Routine 09/22/2019 Results for (AUTOMATED) 12:03 PM CDT this procedure are in the results section. AC PANEL 20 + LACTIC [facility] 09/22/2019 Results for ACID 7:01 AM CDT this procedure are in the results section. POCT GLUCOSE Routine 09/22/2019 Results for (AUTOMATED) 5:49 AM CDT this procedure are in the results section. POCT GLUCOSE Routine 09/22/2019 Results for (AUTOMATED) 1:01 AM CDT this procedure are in the results section. CBC WITH DIFFERENTIAL Routine 09/22/2019 Result s for 12:24 AM CDT this procedure are in the results section. CBC WITH DIFFERENTIAL Routine 09/22/2019 Result s for 12:24 AM CDT this procedure are in the results section. ACUTE CARE ARTERIAL [facility] 09/22/2019 Results for BLOOD GAS 12:24 AM CDT this procedure are in the results section. BASIC METABOLIC PANEL [facility] 09/22/2019 Result s for (NA, K, CL, CO2, 12:24 AM CDT this proced ure GLUCOSE, BUN, are in the CREATININE, CA) results section. MAGNESIUM [facility] 09/22/2019 Results for 12:24 AM CDT this procedure are in the results section. POCT GLUCOSE Routine 09/21/2019 Results for (AUTOMATED) 5:41 PM CDT this procedure are in the results section. PROFILE / HEMOGRAM [facility] 09/21/2019 Results f or 5:35 PM CDT this procedure are in the results section. ACUTE CARE ARTERIAL [facility] 09/21/2019 Results for BLOOD GAS 3:00 PM CDT this procedure are in the results section. TROPONIN I [facility] 09/21/2019 Results for 3:00 PM CDT this procedure are in the results section. BILATERAL VENOUS Routine 09/21/2019 DUPLEX LOWER EXTREMITY 12:56 PM CDT BY VASCULAR LAB TRANSFUSE PACKED RBC Routine 09/21/2019 12:44 PM CDT POCT GLUCOSE Routine 09/21/2019 Results for (AUTOMATED) 11:44 AM CDT this procedure are in the results section. ACUTE CARE ARTERIAL [facility] 09/21/2019 Results for BLOOD GAS 9:28 AM CDT this procedure are in the results section. PREPARE PACKED RBC Routine 09/21/2019 Results f or 8:42 AM CDT this procedure are in the results section. EKG-12 LEAD Routine 09/21/2019 7:42 AM CDT POCT GLUCOSE Routine 09/21/2019 Results for (AUTOMATED) 6:55 AM CDT this procedure are in the results section. HB ABO GROUPING Routine 09/21/2019 Results for 6:42 AM CDT this procedure are in the results section. XR CHEST 1 VW STAT 09/21/2019 SOB (shortness of Results f or 5:50 AM CDT breath) this procedure are in the results section. XR ABDOMEN 1 VW STAT 09/21/2019 SOB (shortness of Results for 5:50 AM CDT breath) this procedure Acute on chronic are in the congestive heart results failure, unspecified section . heart failure ty pe Respiratory failure, unspecified chronicity, unspecified whether with hypoxia or hypercapnia BLOOD CULTURE SCREEN [facility] 09/21/2019 Results for 4:58 AM CDT this procedure are in the results section. BLOOD CULTURE SCREEN [facility] 09/21/2019 Results for 4:58 AM CDT this procedure are in the results section. URINE DRUG (LCMSMS) - [facility] 09/21/2019 Result s for BENZODIAZEPINES PANEL 4:54 AM CDT this p rocedure are in the results section. URINE CULTURE [facility] 09/21/2019 Results for 4:54 AM CDT this procedure are in the results section. URINALYSIS [facility] 09/21/2019 Results for 4:54 AM CDT this procedure are in the results section. GALV/CLC ONLY - URINE [facility] 09/21/2019 Result s for DRUG (IMMUNOASSAY) - 4:54 AM CDT this pr ocedure COMPREHENSIVE DRUG are in th e SCREEN results section. AC ABG + LACTIC ACID STAT 09/21/2019 Results for 4:52 AM CDT this procedure are in the results section. MRSA / MSSA SCREEN BY [facility] 09/21/2019 Result s for PCR, NARES 4:50 AM CDT this procedure are in the results section. CBC WITH DIFFERENTIAL Routine 09/21/2019 Result s for 4:50 AM CDT this procedure are in the results section. CBC WITH DIFFERENTIAL Routine 09/21/2019 Result s for 4:50 AM CDT this procedure are in the results section. BASIC METABOLIC PANEL [facility] 09/21/2019 Result s for (NA, K, CL, CO2, 4:50 AM CDT this proced ure GLUCOSE, BUN, are in the CREATININE, CA) results section. TROPONIN I [facility] 09/21/2019 Results for 4:50 AM CDT this procedure are in the results section. ACUTE CARE ARTERIAL STAT 09/21/2019 Results for BLOOD GAS 2:25 AM CDT this procedure are in the results section. AC PANEL 20 + LACTIC STAT 09/20/2019 SOB (shortness of Re sults for ACID 11:15 PM CDT breath) this procedure are in the results section. XR CHEST 1 VW STAT 09/20/2019 SOB (shortness of Results f or 10:42 PM CDT breath) this procedure are in the results section. COVID-19 (PCR STAT 09/20/2019 SOB (shortness of Results f or MOLECULAR TESTING) 10:27 PM CDT breath) this proc edure are in the results section. CBC WITH DIFFERENTIAL STAT 09/20/2019 SOB (shortness of R esults for 10:22 PM CDT breath) this procedure are in the results section. PROCALCITONIN Add-on 09/20/2019 Results for 10:22 PM CDT this procedure are in the results section. N-TERMINAL PRO-BNP STAT Add-On 09/20/2019 SOB (shortness of Resu lts for 10:22 PM CDT breath) this procedure are in the results section. ACTIVATED PARTIAL STAT 09/20/2019 SOB (shortness of Resul ts for THRMPLAS TAMMI 10:22 PM CDT breath) this procedure are in the results section. D-DIMER STAT 09/20/2019 SOB (shortness of Results fo r 10:22 PM CDT breath) this procedure are in the results section. PROTHROMBIN TIME / INR STAT 09/20/2019 SOB (shortness of Results for 10:22 PM CDT breath) this procedure are in the results section. GLYCOSYLATED Add-on 09/20/2019 Results for HEMOGLOBIN (A1C) 10:22 PM CDT this proced ure are in the results section. CBC WITH DIFFERENTIAL Routine 09/20/2019 SOB (shortness of R esults for 10:22 PM CDT breath) this procedure are in the results section. IRON PANEL Add-on 09/20/2019 Results for 10:22 PM CDT this procedure are in the results section. COMP. METABOLIC PANEL STAT 09/20/2019 SOB (shortness of R esults for ([id number]) 10:22 PM CDT breath) this procedure are in the results section. TROPONIN I STAT 09/20/2019 SOB (shortness of Results fo r 10:22 PM CDT breath) this procedure are in the results section. TEST, SERUM STAT 09/20/2019 SOB (shortness of R esults for 10:22 PM CDT breath) this procedure are in the results section. FERRITIN SERUM Add-on 09/20/2019 Results for 10:22 PM CDT this procedure are in the results section. LIPASE STAT 09/20/2019 SOB (shortness of Results fo r 10:22 PM CDT breath) this procedure are in the results section. EKG-12 LEAD Routine 09/20/2019 10:06 PM CDT EKG-12 LEAD STAT 09/20/2019 10:04 PM CDT documented in this encounter Results PROTHROMBIN TIME / INR (11/15/2019 5:26 AM CDT) PROTIME PATIENT 31.0 (H) 10.1 - 12.6 [facility] Seconds SERVICES INR 2.7Comment: Normal [facility] INR <1.1; Warfarin SERVICES Therapeutic range 2.0 to 3.0 or 2.5 to 3.5, depending upon the indications. Specimen Blood - ARM, RIGHT Performing Organization Address City/State/[facility] Phone Number [facility] CLIA: [id number], [address] [place] PROFILE / HEMOGRAM (11/14/2019 2:21 PM CDT) Pathologist Sig nature WBC 7.28 4.30 - 11.10 [facility] 10*3/L SERVICES RBC 3.43 (L) 3.93 - 5.25 [facility] 10*6/L SERVICES HGB 8.2 (L) 11.6 - 15.0 g/dL [facility] HCT 29.0 (L) 35.7 - 45.2 % [facility] MCH 23.9 (L) 25.9 - 32.8 pg [facility] MCV 84.5 80.6 - 95.5 fL [facility] MCHC 28.3 (L) 31.6 - 35.1 g/dL [facility] PLT 349 166 - 358 10*3/L [facility] MPV 9.6 9.5 - 12.9 fL [facility] RDW-CV 22.2 (H) 12.0 - 15.5 % [facility] RDW-SD 66.8 (H) 39.0 - 49.9 fL [facility] NRBC x10^3 <0.01 10*3/L [facility] NRBC/100 WBC 0.0 0.0 - 10.0 /100 [facility] WBCs SERVICES IPF % [facility] Specimen Blood - VENOUS Performing Organization Address City/State/Zipcode Phone Number [facility] CLIA: [id number], [address] [place] [address] [phone] [facility] aPTT (11/14/2019 5:52 AM CDT) Pathologist Sig nature APTT Patient 78 (H) 26 - 36 Seconds [facility] Specimen Blood - ARM, LEFT Performing Organization Address [facility] Phone Number [facility] CLIA: [id number], [address] [place] [address] [phone] [facility] PROTHROMBIN TIME / INR (11/14/2019 5:52 AM CDT) PROTIME PATIENT 28.7 (H) 10.1 - 12.6 [facility] Seconds SERVICES INR 2.5Comment: Normal [facility] INR <1.1; Warfarin SERVICES Therapeutic range 2.0 to 3.0 or 2.5 to 3.5, depending upon the indications. Specimen Blood - ARM, LEFT Performing Organization Address [facility] Phone Number [facility] CLIA: [id number], [address] [place] [address] 555 [facility] MAGNESIUM (11/14/2019 5:52 AM CDT) Pathologist Sig nature MAGNESIUM 1.7 1.7 - 2.4 mg/dL [facility] Specimen Blood - ARM, LEFT Performing Organization Address [facility] Phone Number [facility] CLIA: [id number], [address] [place] [address] [phone] [facility] (11/13/2019 5:52 PM CDT) Pathologist Sig nature APTT Patient 64 (H) 26 - 36 Seconds [facility] Specimen Blood - ARM, LEFT Performing Organization Address [facility] Phone Number [facility] CLIA: [id number], [address] [place] [address] [phone] [facility] (11/13/2019 4:49 AM CDT) Pathologist Sig nature APTT Patient 65 (H) 26 - 36 Seconds [facility] Specimen Blood - LINE, VENOUS Performing Organization Address [facility]/State/Zipcode Phone Number [facility] CLIA: [id number], [address] [place] [phone] [facility] PROTHROMBIN TIME / INR (11/13/2019 4:49 AM CDT) PROTIME PATIENT 22.8 (H) 10.1 - 12.6 [facility] Seconds SERVICES INR 2.0Comment: Normal [facility] INR <1.1; Warfarin SERVICES Therapeutic range 2.0 to 3.0 or 2.5 to 3.5, depending upon the indications. Specimen Blood - LINE, VENOUS Performing Organization Address [facility]/Zipcode Phone Number [facility] CLIA: [id number], [address] [place] [address] [phone] [facility] PROTHROMBIN TIME / INR (11/12/2019 4:43 AM CDT) PROTIME PATIENT 20.6 (H) 10.1 - 12.6 [facility] Seconds SERVICES INR 1.8Comment: Normal [facility] INR <1.1; Warfarin SERVICES Therapeutic range 2.0 to 3.0 or 2.5 to 3.5, depending upon the indications. Specimen Blood - ARM, LEFT Performing Organization Address [facility]/[place] Phone Number [facility] CLIA: [id number], [address] [place] [address] 555 [facility] BASIC METABOLIC PANEL (NA, K, CL, CO2, GLUCOSE, BUN, CREATININE, CA) (11/12/2019 4:43 AM CDT) Pathologist Sig nature NA 133 (L) 135 - 145 [facility] mmol/L SERVICES K 4.2 3.5 - 5.0 [facility] mmol/L SERVICES CL 93 (L) 98 - 108 mmol/L [facility] CO2 TOTAL 36 (H) 23 - 31 mmol/L [facility] AGAP 4 2 - 16 [facility] BUN 22 7 - 23 mg/dL [facility] GLUCOSE 101 70 - 110 mg/dL [facility] CREATININE 0.58 0.50 - 1.04 [facility] mg/dL SERVICES CALCIUM 9.3 8.6 - 10.6 [facility] mg/dL SERVICES eGFR Calculation 114.6 mL/min/1.73m2 [facility] (Non- SERVICES Swedish) eGFR Calculation 138.9 mL/min/1.73m2 [facility] () SERVICES Specimen Blood - ARM, LEFT Narrative Performed At Association of Glomerular Filtration Rate (GFR) and St aging [facility] of Kidney Disease* + + +------- ------ + | GFR (mL/min/1.73 m2) | With Kidney Damage | Wi thout Kidney Damage + + +------- ------ + | >90 | Stage one | Normal + + +------- ------ + | 60-89 | Stage two | Decreased GFR + + +------- ------ + | 30-59 | Stage three | Stage three + + +------- ------ + | 15-29 | Stage four | Stage four + + +------- ------ + | <15 (or dialysis) | Stage five | Stage five + + +------- ------ + *Each stage assumes the associated GFR level has been in effect for at least three months. Stages 1 to 5, wit h or without kidney disease, indicate chronic kidney disease. Notes: Determination of stages one and two (with eGFR >59mL/min/1.73 m2) requires estimation of kidney damag e for at least three months as defined by structural or func tional abnormalities of the kidney, manifested by either: Pathological abnormalities or Markers of kidney damage (including abnormalities in the composition of the blo od or urine or abnormalities in imaging tests) . Performing Organization Address City/[facility]/Zipcode Phone Number [facility] CLIA: [id number], [address] [place] [phone] [facility] MAGNESIUM (11/12/2019 4:43 AM CDT) Pathologist Sig nature MAGNESIUM 1.7 1.7 - 2.4 mg/dL [facility] Specimen Blood - ARM, LEFT Performing Organization Address [facility] Phone Number [facility] CLIA: [id number], [address] [place] [address] [phone] [facility] POCT GLUCOSE (AUTOMATED) (11/11/2019 12:25 PM CDT) Pathologist Sig nature POCT GLU 105 70 - 110 mg/dL [facility] Specimen Blood Performing Organization Address [facility] Phone Number [facility] CLIA: [id number], [address] [place] [phone] [facility] PROTHROMBIN TIME / INR (11/11/2019 1:20 AM CDT) PROTIME PATIENT 23.2 (H) 10.1 - 12.6 [facility] Second[facility] SERVICES INR 2.0Comment: Normal [facility] INR <1.1; Warfarin SERVICES Therapeutic range 2.0 to 3.0 or 2.5 to 3.5, depending upon the indications. Specimen Blood - HAND, RIGHT Performing Organization Address City/[facility]/Zipcode Phone Number [facility] CLIA: [id number], [address] [place] [address] [phone] [facility] aPTT (11/11/2019 1:20 AM CDT) Pathologist Sig nature APTT Patient 57 (H) 26 - 36 Seconds [facility] Specimen Blood - HAND, RIGHT Performing Organization Address City/[facility] Phone Number [facility] CLIA: [id number], [address] [place] [address] [phone] [facility] POCT GLUCOSE (AUTOMATED) (11/10/2019 6:05 AM CDT) Pathologist Sig [facility] POCT GLU 113 (H) 70 - 110 mg/dL [facility] Specimen Blood Performing Organization Address City/[facility] Phone Number [facility] CLIA: [id number], [address] [place] [phone] [facility] CBC WITH DIFFERENTIAL (11/10/2019 1:42 AM CDT) Pathologist Sig darshan WBC 4.41 4.30 - 11.10 [facility] 10*3/L SERVICES RBC 3.86 (L) 3.93 - 5.25 [facility] 10*6/L SERVICES HGB 9.3 (L) 11.6 - 15.0 [facility] g/dL SERVICES HCT 33.3 (L) 35.7 - 45.2 % [facility] MCV 86.3 80.6 - 95.5 fL [facility] MCH 24.1 (L) 25.9 - 32.8 pg [facility] MCHC 27.9 (L) 31.6 - 35.1 [facility] g/dL SERVICES RDW-SD 68.6 (H) 39.0 - 49.9 fL [facility] RDW-CV 22.1 (H) 12.0 - 15.5 % [facility] PLT 276 166 - 358 [facility] 10*3/L SERVICES MPV 10.0 9.5 - 12.9 fL [facility] NRBC/100 WBC 0.0 0.0 - 10.0 /100 [facility] WBCs SERVICES NRBC x10^3 <0.01 10*3/L [facility] GRAN MAT (NEUT) % 66.7 % [facility] IMM GRAN % 0.20 % [facility] LYMPH % 20.6 % [facility] MONO % 7.3 % [facility] EOS % 5.0 % [facility] BASO % 0.2 % [facility] GRAN MAT x10^3(ANC) 2.94 1.88 - 7.09 [facility] 10*3/uL SERVICES IMM GRAN x10^3 <0.03 0.00 - 0.06 [facility] 10*3/uL SERVICES LYMPH x10^3 0.91 (L) 1.32 - 3.29 [facility] 10*3/uL SERVICES MONO x10^3 0.32 (L) 0.33 - 0.92 [facility] 10*3/uL SERVICES EOS x10^3 0.22 0.03 - 0.39 [facility] 10*3/uL SERVICES BASO x10^3 <0.03 0.01 - 0.07 [facility] 10*3/uL SERVICES Specimen Blood - ARM, RIGHT Performing Organization Address City/State/Zipcode Phone Number [facility] CLIA: [id number], [address] [place] [phone] [facility] PROTHROMBIN TIME / INR (11/10/2019 1:42 AM CDT) PROTIME PATIENT 22.0 (H) 10.1 - 12.6 [facility] Seconds SERVICES INR 1.9Comment: Normal [facility] INR <1.1; Warfarin SERVICES Therapeutic range 2.0 to 3.0 or 2.5 to 3.5, depending upon the indications. Specimen Blood - ARM, RIGHT Performing Organization Address City/State/Zipcode Phone Number [facility] CLIA: [id number], [address] [place] [address] 555 [facility] MAGNESIUM (11/10/2019 1:42 AM CDT) Pathologist Sig nature MAGNESIUM 1.5 (L) 1.7 - 2.4 mg/dL [facility] Specimen Blood - ARM, RIGHT Performing Organization Address City/State/Zipcode Phone Number [facility] CLIA: [id number], [address] [place], [place] [address] [facility] BASIC METABOLIC PANEL (NA, K, CL, CO2, GLUCOSE, BUN, CREATININE, CA) (11/10/2019 1:42 AM CDT) Pathologist Sig nature NA 134 (L) 135 - 145 [facility] mmol/L SERVICES K 3.6 3.5 - 5.0 [facility] mmol/L SERVICES CL 94 (L) 98 - 108 mmol/L [facility] SERVICES CO2 TOTAL 36 (H) 23 - 31 mmol/L [facility] AGAP 4 2 - 16 [facility] BUN 24 (H) 7 - 23 mg/dL [facility] SERVICES GLUCOSE 120 (H) 70 - 110 mg/dL [facility] SERVICES CREATININE 0.82 0.50 - 1.04 [facility] mg/dL SERVICES CALCIUM 9.3 8.6 - 10.6 [facility] mg/dL SERVICES eGFR Calculation 76.8 mL/min/1.73m2 [facility] (Non- SERVICES Swedish) eGFR Calculation 93.1 mL/min/1.73m2 [facility] () SERVICES Specimen Blood - ARM, RIGHT Narrative Performed At Association of Glomerular Filtration Rate (GFR) and St aging [facility] SERVICES of Kidney Disease* + + +------- ------ + | GFR (mL/min/1.73 m2) | With Kidney Damage | Wi thout Kidney Damage + + +------- ------ + | >90 | Stage one | Normal + + +------- ------ + | 60-89 | Stage two | Decreased GFR + + +------- ------ + | 30-59 | Stage three | Stage three + + +------- ------ + | 15-29 | Stage four | Stage four + + +------- ------ + | <15 (or dialysis) | Stage five | Stage five + + +------- ------ + *Each stage assumes the associated GFR level has been in effect for at least three months. Stages 1 to 5, wit h or without kidney disease, indicate chronic kidney disease. Notes: Determination of stages one and two (with eGFR >59mL/min/1.73 m2) requires estimation of kidney damag e for at least three months as defined by structural or func tional abnormalities of the kidney, manifested by either: Pathological abnormalities or Markers of kidney damage (including abnormalities in the composition of the blo od or urine or abnormalities in imaging tests) . Performing Organization Address City/[facility] Phone Number [facility] CLIA: [id number], [address] [place] [phone] [facility] aPTT (11/10/2019 1:42 AM CDT) Pathologist Sig nature APTT Patient 61 (H) 26 - 36 Seconds [facility] SERVICES Specimen Blood - ARM, RIGHT Performing Organization Address [facility] Phone Number [facility] CLIA: [id number], [address] [place] [address] [phone] [facility] POCT GLUCOSE (AUTOMATED) (11/10/2019 12:52 AM CDT) Pathologist Sig nature POCT GLU 123 (H) 70 - 110 mg/dL [facility] Specimen Blood Performing Organization Address [facility] Phone Number [facility] CLIA: [id number], [address] [place] [address] [phone] [facility] POCT GLUCOSE (AUTOMATED) (11/09/2019 5:58 PM CDT) Pathologist Sig nature POCT GLU 168 (H) 70 - 110 mg/dL [facility] Specimen Blood Performing Organization Address [facility] Phone Number [facility] CLIA: [id number], [address] [place] [address] [phone] [facility] aPTT (11/09/2019 12:22 PM CDT) Pathologist Sig nature APTT Patient 56 (H) 26 - 36 Seconds [facility] Specimen Blood - ARM, RIGHT Narrative Performed At The [facility] patient population mean normal value for aPTT is 30 [facility] seconds. Performing Organization Address [facility] Phone Number [facility] CLIA: [id number], [address] [place] [address] [phone] [facility] POCT GLUCOSE (AUTOMATED) (11/09/2019 12:18 PM CDT) Pathologist Sig nature POCT GLU 107 70 - 110 mg/dL [facility] Specimen Blood Performing Organization Address City/[facility] Phone Number [facility] CLIA: [id number], [address] [place] [address] [phone] [facility] POCT GLUCOSE (AUTOMATED) (11/09/2019 5:49 AM CDT) Pathologist Sig nature POCT GLU 104 70 - 110 mg/dL [facility] Specimen Blood Performing Organization Address City/[facility] Phone Number [facility] CLIA: [id number], [address] [place] [address] [phone] [facility] PROTHROMBIN TIME / INR (11/09/2019 12:33 AM CDT) PROTIME PATIENT 21.0 (H) 10.1 - 12.6 [facility] Seconds SERVICES INR 1.8Comment: Normal [facility] INR <1.1; Warfarin SERVICES Therapeutic range 2.0 to 3.0 or 2.5 to 3.5, depending upon the indications. Specimen Blood - ARM, RIGHT Performing Organization Address [facility] Phone Number [facility] CLIA: [id number], [address] [place] [address] [phone] [facility] aPTT (11/09/2019 12:33 AM CDT) Pathologist Sig nature APTT Patient 59 (H) 26 - 36 Seconds [facility] SERVICES Specimen Blood - ARM, RIGHT Performing Organization Address [facility] Phone Number [facility] CLIA: [id number], [address] [place] [address] [phone] [facility] POCT GLUCOSE (AUTOMATED) (11/09/2019 12:21 AM CDT) Pathologist Sig nature POCT GLU 126 (H) 70 - 110 mg/dL [facility] Specimen Blood Performing Organization Address City/[facility] Phone Number [facility] CLIA: [id number], [address] [place] [address] [phone] [facility] aPTT (11/08/2019 12:04 PM CDT) Pathologist Sig darshan APTT Patient 66 (H) 26 - 36 Seconds [facility] Specimen Blood - HAND, RIGHT Performing Organization Address [facility] Phone Number [facility] CLIA: [id number], [address] [place] [address] [phone] [facility] COVID-19 (ID NOW RAPID TESTING) (11/08/2019 11:57 AM CDT) SARS-CoV-2 Rapid ID Not Detected Not Detected [facility] NOW SERVICES Specimen Swab - NASOPHARYNGEAL SWAB Narrative Performed At ID NOW COVID-19 Assay is an isothermal nucleic acid [facility] SERVICES amplification test intended for the qualitative detect ion of nucleic acid from SARS-CoV-2 viral RNA in nasopharynge al (SUSTAINABILITY CONSULTANT) specimens. It is used under Emergency Use Authori zation (EUA) by FDA. The limit of detection (LOD) of the assa y is 125 Genome Equivalents/mL. A positive result is indicative of the presence of SARS-CoV-2 RNA. Clinical correlation with patient hi story and other diagnostic information is necessary to deter mine patient infection status. A negative (Not Detected) result does not preclude SARS-CoV-2 infection. In patients with clinical sympto ms and other tests that are consistent with SARS-CoV-2 infect ion, negative results should be treated as presumptive nega tive and a new specimen should be tested with alternative P CR molecular test. Invalid: Please collect a new specimen for repeat winter ent testing if clinically indicated. Performing Organization Address City/[facility] Phone Number [facility] CLIA: [id number], [address] [place] [phone] [facility] POCT GLUCOSE (AUTOMATED) (11/08/2019 6:14 AM CDT) Pathologist [facility] darshan POCT GLU 103 70 - 110 mg/dL [facility] Specimen Blood Performing Organization Address City/[facility]/Zipcode Phone Number [facility] CLIA: [id number], [address] [place] [address] [phone] [facility] CBC WITH DIFFERENTIAL (11/08/2019 12:19 AM CDT) Pathologist Sig nature WBC 4.76 4.30 - 11.10 [facility] 10*3/L SERVICES RBC 3.70 (L) 3.93 - 5.25 [facility] 10*6/L SERVICES HGB 8.9 (L) 11.6 - 15.0 [facility] g/dL SERVICES HCT 31.4 (L) 35.7 - 45.2 % [facility] MCV 84.9 80.6 - 95.5 fL [facility] MCH 24.1 (L) 25.9 - 32.8 pg [facility] MCHC 28.3 (L) 31.6 - 35.1 [facility] g/dL SERVICES RDW-SD 67.0 (H) 39.0 - 49.9 fL [facility] RDW-CV 22.4 (H) 12.0 - 15.5 % [facility] PLT 247 166 - 358 [facility] 10*3/L SERVICES MPV 9.4 (L) 9.5 - 12.9 fL [facility] NRBC/100 WBC 0.0 0.0 - 10.0 /100 [facility] WBCs SERVICES NRBC x10^3 <0.01 10*3/L [facility] GRAN MAT (NEUT) % 66.2 % [facility] IMM GRAN % 0.20 % [facility] LYMPH % 21.0 % [facility] MONO % 8.2 % [facility] EOS % 4.2 % [facility] BASO % 0.2 % [facility] GRAN MAT x10^3(ANC) 3.15 1.88 - 7.09 [facility] 10*3/uL SERVICES IMM GRAN x10^3 <0.03 0.00 - 0.06 [facility] 10*3/uL SERVICES LYMPH x10^3 1.00 (L) 1.32 - 3.29 [facility] 10*3/uL SERVICES MONO x10^3 0.39 0.33 - 0.92 [facility] 10*3/uL SERVICES EOS x10^3 0.20 0.03 - 0.39 [facility] 10*3/uL SERVICES BASO x10^3 <0.03 0.01 - 0.07 [facility] 10*3/uL SERVICES Specimen Blood - ARM, RIGHT Performing Organization Address City/State/[facility] Phone Number [facility] CLIA: [id number], [address] [place] [address] 555 [facility] PROTHROMBIN TIME / INR (11/08/2019 12:19 AM CDT) PROTIME PATIENT 19.8 (H) 10.1 - 12.6 [facility] Seconds SERVICES INR 1.7Comment: Normal [facility] INR <1.1; Warfarin SERVICES Therapeutic range 2.0 to 3.0 or 2.5 to 3.5, depending upon the indications. Specimen Blood - ARM, RIGHT Performing Organization Address [facility] Phone Number [facility] CLIA: [id number], [address] [place] [address] 555 [facility] MAGNESIUM (11/08/2019 12:19 AM CDT) Pathologist Sig nature MAGNESIUM 1.6 (L) 1.7 - 2.4 mg/dL [facility] SERVICES Specimen Blood - ARM, RIGHT Performing Organization Address [facility] Phone Number [facility] CLIA: [id number], [address] [place] [address] 555 [facility] BASIC METABOLIC PANEL (NA, K, CL, CO2, GLUCOSE, BUN, CREATININE, CA) (11/08/2019 12:19 AM CDT) Pathologist Sig nature NA 132 (L) 135 - 145 [facility] mmol/L SERVICES K 3.8 3.5 - 5.0 [facility] mmol/L SERVICES CL 89 (L) 98 - 108 mmol/L [facility] SERVICES CO2 TOTAL 37 (H) 23 - 31 mmol/L [facility] SERVICES AGAP 6 2 - 16 [facility] SERVICES BUN 22 7 - 23 mg/dL [facility] SERVICES GLUCOSE 121 (H) 70 - 110 mg/dL [facility] SERVICES CREATININE 0.65 0.50 - 1.04 [facility] mg/dL SERVICES CALCIUM 9.1 8.6 - 10.6 [facility] mg/dL SERVICES eGFR Calculation 100.4 mL/min/1.73m2 [facility] (Non- SERVICES Swedish) eGFR Calculation 121.7 mL/min/1.73m2 [facility] () SERVICES Specimen Blood - ARM, RIGHT Narrative Performed At Association of Glomerular Filtration Rate (GFR) and St aging [facility] SERVICES of Kidney Disease* + + +------- ------ + | GFR (mL/min/1.73 m2) | With Kidney Damage | Wi thout Kidney Damage + + +------- ------ + | >90 | Stage one | Normal + + +------- ------ + | 60-89 | Stage two | Decreased GFR + + +------- ------ + | 30-59 | Stage three | Stage three + + +------- ------ + | 15-29 | Stage four | Stage four + + +------- ------ + | <15 (or dialysis) | Stage five | Stage five + + +------- ------ + *Each stage assumes the associated GFR level has been in effect for at least three months. Stages 1 to 5, wit h or without kidney disease, indicate chronic kidney disease. Notes: Determination of stages one and two (with eGFR >59mL/min/1.73 m2) requires estimation of kidney damag e for at least three months as defined by structural or func tional abnormalities of the kidney, manifested by either: Pathological abnormalities or Markers of kidney damage (including abnormalities in the composition of the blo od or urine or abnormalities in imaging tests) . Performing Organization Address [facility] Phone Number [facility] CLIA: [id number], [address] [place] [phone] [facility] aPTT (11/08/2019 12:19 AM CDT) Pathologist Sig nature APTT Patient 59 (H) 26 - 36 Seconds [facility] SERVICES Specimen Blood - ARM, RIGHT Performing Organization Address [facility] Phone Number [facility] CLIA: [id number], [address] [place] [address] 77 [phone] [facility] POCT GLUCOSE (AUTOMATED) (11/07/2019 11:44 PM CDT) Pathologist Sig nature POCT GLU 129 (H) 70 - 110 mg/dL [facility] Specimen Blood Performing Organization Address [facility] Phone Number [facility] CLIA: [id number], [address] [place] [address] [facility] POCT GLUCOSE (AUTOMATED) (11/07/2019 5:43 PM CDT) Pathologist Sig nature POCT GLU 160 (H) 70 - 110 mg/dL [facility] Specimen Blood Performing Organization Address [facility]/Zipcode Phone Number [facility] CLIA: [id number], [address] [place], [place] [address] [facility] MOD BARIUM SWALLOW, (COOKIE) (11/07/2019 3:30 PM CDT) Specimen Impressions Performed At FINDINGS/IMPRESSION: PACS/VR/DOSE Due to systemic failure, no image was sa frankie in the image library. Please refer to the speech pathologist's note f or their impression and recommendation. Preliminary Report Dictated by Resident: Farida Jordan I reviewed this study and agree. Franklyn Abad MD., have reviewe d this study and agree with the above report. Narrative Performed At MODIFIED BARIUM SWALLOW PACS/VR/DOSE HISTORY: 43-year-old female with mild oropharyngeal dy sphagia, status post tracheostomy. TECHNIQUE: Barium of varying consistencies of from solid through thin liquid were administered to the patient during fluor oscopy. The study was performed with the speech pathologist. Procedure Note [facility], Radiant Results Inft User - 2019 11:00 AM CDT MODIFIED BARIUM SWALLOW HISTORY: 43-year-old female with mild or opharyngeal dysphagia, status post tracheostomy. TECHNIQUE: Barium of varying consistencies of from solid through thin liquid were administered to the patient during fluor oscopy. The study was performed with the speech pathologist. IMPRESSION FINDINGS/IMPRESSION: Due to systemic failure, no image was sa frankie in the image library. Please refer to the speech pathologist's note f or their impression and recommendation. Preliminary Report Dictated by Resident: Farida Jordan I reviewed this study and agree. Franklyn Abad MD., have reviewe d this study and agree with the above report. Performing Organization Address [facility]/Zipcode Phone Number PACS/VR/DOSE POCT GLUCOSE (AUTOMATED) (11/07/2019 12:29 PM CDT) Pathologist Sig nature POCT GLU 129 (H) 70 - 110 mg/dL [facility] Specimen Blood Performing Organization Address City/[facility]/Zipcode Phone Number [facility] CLIA: [id number], [address] [place], [place] [address] [facility] PROTHROMBIN TIME / INR (11/07/2019 9:46 AM CDT) PROTIME PATIENT 20.1 (H) 10.1 - 12.6 [facility] Seconds SERVICES INR 1.7Comment: Normal [facility] INR <1.1; Warfarin SERVICES Therapeutic range 2.0 to 3.0 or 2.5 to 3.5, depending upon the indications. Specimen Blood - LINE, VENOUS Performing Organization Address [facility] Phone Number [facility] CLIA: [id number], [address] [place] [address] [phone] [facility] aPTT (11/07/2019 9:46 AM CDT) Pathologist Sig nature APTT Patient 57 (H) 26 - 36 Seconds [facility] SERVICES Specimen Blood - LINE, VENOUS Performing Organization Address [facility] Phone Number [facility] CLIA: [id number], [address] [place] [address] 77 [phone] [facility] POCT GLUCOSE (AUTOMATED) (11/07/2019 6:14 AM CDT) Pathologist Sig nature POCT GLU 96 70 - 110 mg/dL [facility] Specimen Blood Performing Organization Address [facility] Phone Number [facility] CLIA: [id number], [address] [place] [address] [facility] POCT GLUCOSE (AUTOMATED) (11/07/2019 12:11 AM CDT) Pathologist Sig nature POCT GLU 97 70 - 110 mg/dL [facility] Specimen Blood Performing Organization Address [facility] Phone Number [facility] CLIA: [id number], [address] [place] [address] [facility] aPTT (11/06/2019 8:46 PM CDT) Pathologist Sig nature APTT Patient 61 (H) 26 - 36 Seconds [facility] SERVICES Specimen Blood - ARM, RIGHT Performing Organization Address [facility] Phone Number [facility] CLIA: [id number], [address] [place] [address] [phone] [facility] POCT GLUCOSE (AUTOMATED) (11/06/2019 6:04 PM CDT) Pathologist Sig nature POCT GLU 165 (H) 70 - 110 mg/dL [facility] Specimen Blood Performing Organization Address City/[facility] Phone Number [facility] CLIA: [id number], [address] [place] [address] [facility] POCT GLUCOSE (AUTOMATED) (11/06/2019 12:11 PM CDT) Pathologist Sig nature POCT GLU 116 (H) 70 - 110 mg/dL [facility] Specimen Blood Performing Organization Address City/[facility] Phone Number [facility] CLIA: [id number], [address] [place] [address] [facility] aPTT (11/06/2019 8:11 AM CDT) Pathologist Sig nature APTT Patient 73 (H) 26 - 36 Seconds [facility] SERVICES Specimen Blood - HAND, RIGHT Performing Organization Address [facility] Phone Number [facility] CLIA: [id number], [address] [place] [address] [phone] [facility] POCT GLUCOSE (AUTOMATED) (11/06/2019 6:16 AM CDT) Pathologist Sig nature POCT GLU 104 70 - 110 mg/dL [facility] Specimen Blood Performing Organization Address City/[facility] Phone Number [facility] CLIA: [id number], [address] [place] [address] [address] [facility] CBC WITH DIFFERENTIAL (11/06/2019 12:07 AM CDT) Pathologist Sig nature WBC 4.46 4.30 - 11.10 [facility] 10*3/L SERVICES RBC 4.01 3.93 - 5.25 [facility] 10*6/L SERVICES HGB 9.6 (L) 11.6 - 15.0 [facility] g/dL SERVICES HCT 34.5 (L) 35.7 - 45.2 % [facility] SERVICES MCV 86.0 80.6 - 95.5 fL [facility] SERVICES MCH 23.9 (L) 25.9 - 32.8 pg [facility] SERVICES MCHC 27.8 (L) 31.6 - 35.1 [facility] g/dL SERVICES RDW-SD 70.6 (H) 39.0 - 49.9 fL [facility] SERVICES RDW-CV 22.5 (H) 12.0 - 15.5 % [facility] SERVICES PLT 273 166 - 358 [facility] 10*3/L SERVICES MPV 9.7 9.5 - 12.9 fL [facility] SERVICES NRBC/100 WBC 0.0 0.0 - 10.0 /100 [facility] WBCs SERVICES NRBC x10^3 <0.01 10*3/L [facility] SERVICES GRAN MAT (NEUT) % 67.4 % [facility] IMM GRAN % 0.20 % [facility] LYMPH % 17.9 % [facility] MONO % 8.5 % [facility] EOS % 5.8 % [facility] BASO % 0.2 % [facility] GRAN MAT x10^3(ANC) 3.00 1.88 - 7.09 [facility] 10*3/uL SERVICES IMM GRAN x10^3 <0.03 0.00 - 0.06 [facility] 10*3/uL SERVICES LYMPH x10^3 0.80 (L) 1.32 - 3.29 [facility] 10*3/uL SERVICES MONO x10^3 0.38 0.33 - 0.92 [facility] 10*3/uL SERVICES EOS x10^3 0.26 0.03 - 0.39 [facility] 10*3/uL SERVICES BASO x10^3 <0.03 0.01 - 0.07 [facility] 10*3/uL SERVICES POLYCHROMASIA 2+ 2+ [facility] SERVICES Specimen Blood - ARM, RIGHT Performing Organization Address City/State/Zipcode Phone Number [facility] CLIA: [id number], [address] [place] [address] [phone] [facility] MAGNESIUM (11/06/2019 12:07 AM CDT) Pathologist Sig nature MAGNESIUM 1.5 (L) 1.7 - 2.4 mg/dL [facility] SERVICES Specimen Blood - ARM, RIGHT Performing Organization Address City/State/Zipcode Phone Number [facility] CLIA: [id number], [address] [place], [place] [phone] [facility] BASIC METABOLIC PANEL (NA, K, CL, CO2, GLUCOSE, BUN, CREATININE, CA) (11/06/2019 12:07 AM CDT) Pathologist [facility] nature NA 131 (L) 135 - 145 [facility] mmol/L SERVICES K 3.7 3.5 - 5.0 [facility] mmol/L SERVICES CL 85 (L) 98 - 108 mmol/L [facility] SERVICES CO2 TOTAL 37 (H) 23 - 31 mmol/L [facility] SERVICES AGAP 9 2 - 16 [facility] SERVICES BUN 21 7 - 23 mg/dL [facility] SERVICES GLUCOSE 113 (H) 70 - 110 mg/dL [facility] SERVICES CREATININE 0.69 0.50 - 1.04 [facility] mg/dL SERVICES CALCIUM 9.4 8.6 - 10.6 [facility] mg/dL SERVICES eGFR Calculation 93.8 mL/min/1.73m2 [facility] (Non- SERVICES Swedish) eGFR Calculation 113.6 mL/min/1.73m2 [facility] () SERVICES Specimen Blood - ARM, RIGHT Narrative Performed At Association of Glomerular Filtration Rate (GFR) and St aging [facility] SERVICES of Kidney Disease* + + +------- ------ + | GFR (mL/min/1.73 m2) | With Kidney Damage | Wi thout Kidney Damage + + +------- ------ + | >90 | Stage one | Normal + + +------- ------ + | 60-89 | Stage two | Decreased GFR + + +------- ------ + | 30-59 | Stage three | Stage three + + +------- ------ + | 15-29 | Stage four | Stage four + + +------- ------ + | <15 (or dialysis) | Stage five | Stage five + + +------- ------ + *Each stage assumes the associated GFR level has been in effect for at least three months. Stages 1 to 5, wit h or without kidney disease, indicate chronic kidney disease. Notes: Determination of stages one and two (with eGFR >59mL/min/1.73 m2) requires estimation of kidney damag e for at least three months as defined by structural or func tional abnormalities of the kidney, manifested by either: Pathological abnormalities or Markers of kidney damage (including abnormalities in the composition of the blo od or urine or abnormalities in imaging tests) . Performing Organization Address City/State/Zipcode Phone Number [facility] CLIA: [id number], [address] [place] [phone] [facility] PROTHROMBIN TIME / INR (11/06/2019 12:07 AM CDT) PROTIME PATIENT 15.8 (H) 10.1 - 12.6 [facility] Seconds SERVICES INR 1.4Comment: Normal [facility] INR <1.1; Warfarin SERVICES Therapeutic range 2.0 to 3.0 or 2.5 to 3.5, depending upon the indications. Specimen Blood - ARM, RIGHT Performing Organization Address City/[facility] Phone Number [facility] CLIA: [id number], [address] [place] [address] [phone] [facility] aPTT (11/06/2019 12:07 AM CDT) Pathologist Sig nature APTT Patient 54 (H) 26 - 36 Seconds [facility] SERVICES Specimen Blood - ARM, RIGHT Performing Organization Address [facility] Phone Number [facility] CLIA: [id number], [address] [place] [address] [phone] [facility] POCT GLUCOSE (AUTOMATED) (11/05/2019 11:27 PM CDT) Pathologist Sig nature POCT GLU 105 70 - 110 mg/dL [facility] Specimen Blood Performing Organization Address [facility] Phone Number [facility] CLIA: [id number], [address] [place] [address] [facility] POCT GLUCOSE (AUTOMATED) (11/05/2019 5:07 PM CDT) Pathologist Sig nature POCT GLU 105 70 - 110 mg/dL [facility] Specimen Blood Performing Organization Address [facility] Phone Number [facility] CLIA: [id number], [address] [place] [address] [address] [facility] POCT GLUCOSE (AUTOMATED) (11/05/2019 12:25 PM CDT) Pathologist Sig nature POCT GLU 129 (H) 70 - 110 mg/dL [facility] Specimen Blood Performing Organization Address [facility] Phone Number [facility] CLIA: [id number], [address] [place] [address] [address] [facility] aPTT (11/05/2019 11:18 AM CDT) Pathologist Sig nature APTT Patient 74 (H) 26 - 36 Seconds [facility] SERVICES Specimen Blood - HAND, RIGHT Performing Organization Address [facility] Phone Number [facility] CLIA: [id number], [address] [place] [address] [phone] [facility] POCT GLUCOSE (AUTOMATED) (11/05/2019 6:31 AM CDT) Pathologist Sig nature POCT GLU 95 70 - 110 mg/dL [facility] Specimen Blood Performing Organization Address [facility] Phone Number [facility] CLIA: [id number], [address] [place] [address] [address] [facility] PROTHROMBIN TIME / INR (11/05/2019 3:53 AM CDT) PROTIME PATIENT 14.5 (H) 10.1 - 12.6 [facility] Seconds SERVICES INR 1.3Comment: Normal [facility] INR <1.1; Warfarin SERVICES Therapeutic range 2.0 to 3.0 or 2.5 to 3.5, depending upon the indications. Specimen Blood - ARM, LEFT Performing Organization Address [facility] Phone Number [facility] CLIA: [id number], [address] [place] [address] [phone] [facility] POCT GLUCOSE (AUTOMATED) (11/05/2019 12:43 AM CDT) Pathologist Sig nature POCT GLU 106 70 - 110 mg/dL [facility] Specimen Blood Performing Organization Address [facility] Phone Number [facility] CLIA: [id number], [address] [place] [address] [facility] aPTT (11/04/2019 10:20 PM CDT) Pathologist Sig nature APTT Patient 64 (H) 26 - 36 Seconds [facility] SERVICES Specimen Blood - WRIST, LEFT Performing Organization Address City/[facility]/Zipcode Phone Number [facility] CLIA: [id number], [address] [place] [address] [phone] [facility] POCT GLUCOSE (AUTOMATED) (11/04/2019 5:35 PM CDT) Pathologist Sig nature POCT GLU 174 (H) 70 - 110 mg/dL [facility] Specimen Blood Performing Organization Address City/[facility] Phone Number [facility] CLIA: [id number], [address] [place] [address] [address] [facility] POCT GLUCOSE (AUTOMATED) (11/04/2019 12:15 PM CDT) Pathologist Sig nature POCT GLU 123 (H) 70 - 110 mg/dL [facility] Specimen Blood Performing Organization Address [facility] Phone Number [facility] CLIA: [id number], [address] [place] [address] [address] [facility] aPTT (11/04/2019 9:45 AM CDT) Pathologist Sig nature APTT Patient 57 (H) 26 - 36 Seconds [facility] SERVICES Specimen Blood - ARM, LEFT Performing Organization Address [facility] Phone Number [facility] CLIA: [id number], [address] [place] [address] [phone] [facility] POCT GLUCOSE (AUTOMATED) (11/04/2019 6:06 AM CDT) Pathologist Sig nature POCT GLU 96 70 - 110 mg/dL [facility] Specimen Blood Performing Organization Address [facility] Phone Number [facility] CLIA: [id number], [address] [place] [address] [address] [facility] WARFARIN PHARMACOGENETICS TEST (CYP2C9 & VKORC1) (11/04/2019 3:03 AM CDT) Pathologist Sig nature CYP2C9 & VKORC1 - 3 See Comment [facility] Variants SERVICES Specimen Blood - ARM, RIGHT Narrative Performed At Warfarin Pharmacogenetics Test (CYP2C9 & VKORC1) - 3 [facility] Variants Result: CYP2C9: *1/*1 (note our assay does not detect *5, *6, *8, and *11 alleles) VKORC1: -1639 G/G Interpretive comments: Per Epic, the patient is "Black or ". Based on updated CPIC guideline (Yumiko sanchez et al., 2017), since our test only detect *2 and *3 al leles and does not detect *5, *6, *8, and *11 alleles that a re high in ancestry, it is recommended to dose Wa rfarin clinically. If clinically indicated, please request a Warfarin pharmacogenetics test that detect CYP2C9 *5, *6, *8, and *11 alleles. Characteristics: Warfarin (Coumadin) is metabolized primarily in the liver by cytochrome P450 family 2 sub family C member 9 (CYP2C9) and exerts its anticoagulant effec t by inhibiting vitamin K epoxide reductase complex, subuni t 1 (VKORC1). Three single nucleotide polymorphisms, two i n the CYP2C9 and one in the VKORC1 genes, have been found to play naqvi roles in determining the effect of warfarin therap y on coagulation. This test may predict individual warfarin sensitivity and non-standard dose requir ements. Inheritance: Autosomal co-dominant. Variants Tested: CYP2C9 (variants are numbered according to [id number]): *2 ([id number], c.430C>T) and *3 ([id number], c.1075A>C). C YP2C9 *2 and *3 variants result in decreased enzyme activity that will reduce metabolism and prolong the half-life of warfarin. Negative, *1 (reference allele at all positions). VKORC1 (variant is numbered according to [id number]): VKORC1-1639 G>A polymorphism ([id number], c.-1639G>A). The VKORC1-1639A allele is associated with reduced express ion of VKORC1 and a reduced dose requirement. Negative, the c ommon VKORC1-1639G allele. Allele Frequencies: CYP2C9: 11% and 7% of Caucasians carry the *2 and *3 variants, respectively. Both variants are rare (< 2%) in Americans or Asians. VKORC1-1639A: Caucasians 37 percent, Asians 91 percent , Americans 14 percent. Clinical Sensitivity: Approximately 90 percent of CYP2 C9 and VKORC1 variants causing warfarin sensitivity in Caucas ians are detected when both tests are performed. Less characterized in other populations. Methodology: Multiplex polymerase chain reaction and [employer] System ([employer]). The [place]. Food and D rug Administration (FDA) has approved or alvin ared this test. Analytical Sensitivity and Specificity: 99 percent. Limitations: Only the targeted CYP2C9 and VKORC1 varia nts will be detected by this test. Diagnostic errors can o ccur due to rare sequence variations. Risk of therapeutic f ailure or adverse reactions with warfarin may be affected by genetic and non-genetic factors that are not detected by this test. This result does not replace the need for therapeutic drug or clinical monitoring. This test santamaria s not identify patients at risk for warfarin r esistance. Table 1. Expected maintenance warfarin daily doses (mg /day) based on CYP2C9 and VKORC1 genotypes (reproduced from updated warfarin FDA product label) VKORC1 CYP2C9 *1/*1 *1/*2 *1/*3 *2 /*2 *2/*3 *3/*3 GG 5-7 5-7 3-4 3-4 3-4 0.5-2 AG 5-7 3-4 3-4 3-4 0.5-2 0.5-2 AA 3-4 3-4 0.5-2 0.5-2 0.5-2 0.5-2 References: [facility]: http://omim.org/entry/452126, and http://omim.org/entry/971841 CPIC: https://cpicpgx.org/guidelines/ PharmGKB: https://www.pharmgkb.org/, updated Clinical Pharmacogenetics Implementation Consortium (CPIC) Guidelines. Warfarin and CYP2C9/VKORC1: https://www.pharmgkb.org/molecule/DN3387 06 CYP2C9: https://www.pharmgkb.org/gene/PA 126 VKORC1: https://www.pharmgkb.org/gene/PA 475536375 WarfarinDosing.org: http://www.warfarindosing.org/Source/Ni e.aspx Counseling and informed consent are recommended for new [facility] testing. Consent form is available onlin e. This result has been reviewed and approved by Nelson yi MD, PhD, [facility] Performing Organization Address City/State/Zipcode Phone Number [facility] CLIA: [id number], [address], [place] [address] [facility] CBC WITH DIFFERENTIAL (11/04/2019 3:03 AM CDT) [facility] Sig nature WBC 4.10 (L) 4.30 - 11.10 [facility] 10*3/L SERVICES RBC 4.03 3.93 - 5.25 [facility] 10*6/L SERVICES HGB 9.7 (L) 11.6 - 15.0 [facility] g/dL SERVICES HCT 34.9 (L) 35.7 - 45.2 % [facility] MCV 86.6 80.6 - 95.5 fL [facility] MCH 24.1 (L) 25.9 - 32.8 pg [facility] MCHC 27.8 (L) 31.6 - 35.1 [facility] g/dL SERVICES RDW-SD 70.5 (H) 39.0 - 49.9 fL [facility] RDW-CV 23.2 (H) 12.0 - 15.5 % [facility] PLT 271 166 - 358 [facility] 10*3/L SERVICES MPV 9.7 9.5 - 12.9 fL [facility] NRBC/100 WBC 0.0 0.0 - 10.0 /100 [facility] WBCs SERVICES NRBC x10^3 <0.01 10*3/L [facility] GRAN MAT (NEUT) % 63.7 % [facility] IMM GRAN % 0.20 % [facility] LYMPH % 20.0 % [facility] MONO % 11.0 % [facility] EOS % 5.1 % [facility] BASO % 0.0 % [facility] GRAN MAT x10^3(ANC) 2.61 1.88 - 7.09 [facility] 10*3/uL SERVICES IMM GRAN x10^3 <0.03 0.00 - 0.06 [facility] 10*3/uL SERVICES LYMPH x10^3 0.82 (L) 1.32 - 3.29 [facility] 10*3/uL SERVICES MONO x10^3 0.45 0.33 - 0.92 [facility] 10*3/uL SERVICES EOS x10^3 0.21 0.03 - 0.39 [facility] 10*3/uL SERVICES BASO x10^3 <0.03 0.01 - 0.07 [facility] 10*3/uL SERVICES POLYCHROMASIA 2+ 2+ [facility] Specimen Blood - ARM, RIGHT Performing Organization Address City/[facility]/Zipcode Phone Number [facility] CLIA: [id number], [address] [place] [phone] [facility] MAGNESIUM (11/04/2019 3:03 AM CDT) Pathologist Sig nature MAGNESIUM 1.7 1.7 - 2.4 mg/dL [facility] Specimen Blood - ARM, RIGHT Performing Organization Address [facility] Phone Number [facility] CLIA: [id number], [address] [place] [address] 555 [facility] BASIC METABOLIC PANEL (NA, K, CL, CO2, GLUCOSE, BUN, CREATININE, CA) (11/04/2019 3:03 AM CDT) Pathologist Sig nature NA 134 (L) 135 - 145 [facility] mmol/L SERVICES K 4.4 3.5 - 5.0 [facility] mmol/L SERVICES CL 88 (L) 98 - 108 mmol/L [facility] CO2 TOTAL 35 (H) 23 - 31 mmol/L [facility] AGAP 11 2 - 16 [facility] BUN 18 7 - 23 mg/dL [facility] GLUCOSE 101 70 - 110 mg/dL [facility] CREATININE 0.56 0.50 - 1.04 [facility] mg/dL SERVICES CALCIUM 9.5 8.6 - 10.6 [facility] mg/dL SERVICES eGFR Calculation 119.3 mL/min/1.73m2 [facility] (Non- SERVICES Swedish) eGFR Calculation 144.6 mL/min/1.73m2 [facility] () SERVICES Specimen Blood - ARM, RIGHT Narrative Performed At Association of Glomerular Filtration Rate (GFR) and St aging [facility] of Kidney Disease* + + +------- ------ + | GFR (mL/min/1.73 m2) | With Kidney Damage | Wi thout Kidney Damage + + +------- ------ + | >90 | Stage one | Normal + + +------- ------ + | 60-89 | Stage two | Decreased GFR + + +------- ------ + | 30-59 | Stage three | Stage three + + +------- ------ + | 15-29 | Stage four | Stage four + + +------- ------ + | <15 (or dialysis) | Stage five | Stage five + + +------- ------ + *Each stage assumes the associated GFR level has been in effect for at least three months. Stages 1 to 5, wit h or without kidney disease, indicate chronic kidney disease. Notes: Determination of stages one and two (with eGFR >59mL/min/1.73 m2) requires estimation of kidney damag e for at least three months as defined by structural or func tional abnormalities of the kidney, manifested by either: Pathological abnormalities or Markers of kidney damage (including abnormalities in the composition of the blo od or urine or abnormalities in imaging tests) . Performing Organization Address City/[facility] Phone Number [facility] CLIA: [id number], [address] [place] [address] [facility] PROTHROMBIN TIME / INR (11/04/2019 3:03 AM CDT) PROTIME PATIENT 11.3 10.1 - 12.6 [facility] Seconds SERVICES INR 1.0Comment: Normal [facility] INR <1.1; Warfarin SERVICES Therapeutic range 2.0 to 3.0 or 2.5 to 3.5, depending upon the indications. Specimen Blood - ARM, RIGHT Performing Organization Address [facility] Phone Number [facility] CLIA: [id number], [address] [place] [address] [facility] aPTT (11/04/2019 3:03 AM CDT) [facility] nature APTT Patient 51 (H) 26 - 36 Seconds [facility] Specimen Blood - ARM, RIGHT Performing Organization Address [facility] Unit[facility]sel[facility] Phone Number [facility] CLIA: [id number], [address] [place] [address] [facility] POCT GLUCOSE (AUTOMATED) (11/04/2019 12:06 AM CDT) [facility] nature POCT GLU 141 (H) 70 - 110 mg/dL [facility] Specimen Blood Performing Organization Address [facility]/Zipcode Phone Number [facility] CLIA: [id number], [address] [place] [address] [facility] POCT GLUCOSE (AUTOMATED) (11/03/2019 5:44 PM CDT) Pathologist Sig nature POCT GLU 145 (H) 70 - 110 mg/dL [facility] Specimen Blood Performing Organization Address City/[facility] Phone Number [facility] CLIA: [id number], [address] [place] [address] [facility] aPTT (11/03/2019 2:50 PM CDT) Pathologist Sig nature APTT Patient 55 (H) 26 - 36 Seconds [facility] Specimen Blood - ARM, RIGHT Performing Organization Address City/[facility] Phone Number [facility] CLIA: [id number], [address] [place] [phone] [facility] POCT GLUCOSE (AUTOMATED) (11/03/2019 12:01 PM CDT) Pathologist Sig nature POCT GLU 106 70 - 110 mg/dL [facility] Specimen Blood Performing Organization Address [facility] Phone Number [facility] CLIA: [id number], [address] [place] [address] [facility] POCT GLUCOSE (AUTOMATED) (11/03/2019 6:12 AM CDT) Pathologist Sig nature POCT GLU 93 70 - 110 mg/dL [facility] Specimen Blood Performing Organization Address City/[facility] Phone Number [facility] CLIA: [id number], [address] [place] [address] [facility] aPTT (11/03/2019 12:49 AM CDT) Pathologist Sig nature APTT Patient 55 (H) 26 - 36 Seconds [facility] Specimen Blood - ARM, RIGHT Performing Organization Address City/[facility] Phone Number [facility] CLIA: [id number], [address] [place] [phone] [facility] PROTHROMBIN TIME / INR (11/03/2019 12:49 AM CDT) PROTIME PATIENT 11.7 10.1 - 12.6 [facility] Seconds SERVICES INR 1.0Comment: Normal [facility] INR <1.1; Warfarin SERVICES Therapeutic range 2.0 to 3.0 or 2.5 to 3.5, depending upon the indications. Specimen Blood - ARM, RIGHT Performing Organization Address City/[facility] Phone Number [facility] CLIA: [id number], [address] [place] [phone] [facility] POCT GLUCOSE (AUTOMATED) (11/02/2019 11:54 PM CDT) Pathologist Sig nature POCT GLU 94 70 - 110 mg/dL [facility] Specimen Blood Performing Organization Address [facility] Phone Number [facility] CLIA: [id number], [address] [place] [address] [facility] POCT GLUCOSE (AUTOMATED) (11/02/2019 6:35 PM CDT) Pathologist Sig nature POCT GLU 142 (H) 70 - 110 mg/dL [facility] Specimen Blood Performing Organization Address [facility] Phone Number [facility] CLIA: [id number], [address] [place] [address] [facility] aPTT (11/02/2019 12:40 PM CDT) Pathologist Sig nature APTT Patient 58 (H) 26 - 36 Seconds [facility] Specimen Blood - ARM, RIGHT Performing Organization Address City/[facility] Phone Number [facility] CLIA: [id number], [address] [place] [phone] [facility] POCT GLUCOSE (AUTOMATED) (11/02/2019 12:23 PM CDT) Pathologist Sig nature POCT GLU 97 70 - 110 mg/dL [facility] Specimen Blood Performing Organization Address City/[facility] Phone Number [facility] CLIA: [id number], [address] [place] [address] [place] aPTT (11/02/2019 4:23 AM CDT) Pathologist Sig nature APTT Patient 88 (H) 26 - 36 Seconds [facility] Specimen Blood - ARM, LEFT Performing Organization Address City/State/Zipcode Phone Number [facility] CLIA: [id number], [address], [place] [address] CBC WITH DIFFERENTIAL (11/02/2019 4:23 AM CDT) Pathologist Sig nature WBC 4.38 4.30 - 11.10 [facility] 10*3/L SERVICES RBC 3.83 (L) 3.93 - 5.25 [facility] 10*6/L SERVICES HGB 9.2 (L) 11.6 - 15.0 [facility] g/dL SERVICES HCT 33.3 (L) 35.7 - 45.2 % [facility] MCV 86.9 80.6 - 95.5 fL [facility] MCH 24.0 (L) 25.9 - 32.8 pg [facility] MCHC 27.6 (L) 31.6 - 35.1 [facility] g/dL SERVICES RDW-SD 73.4 (H) 39.0 - 49.9 fL [facility] RDW-CV 23.9 (H) 12.0 - 15.5 % [facility] PLT 271 166 - 358 [facility] 10*3/L SERVICES MPV 10.2 9.5 - 12.9 fL [facility] NRBC/100 WBC 0.0 0.0 - 10.0 /100 [facility] WBCs SERVICES NRBC x10^3 <0.01 10*3/L [facility] GRAN MAT (NEUT) % 62.1 % [facility] IMM GRAN % 0.50 % [facility] LYMPH % 20.8 % [facility] MONO % 13.2 % [facility] EOS % 3.4 % [facility] BASO % 0.0 % [facility] GRAN MAT x10^3(ANC) 2.72 1.88 - 7.09 [facility] 10*3/uL SERVICES IMM GRAN x10^3 <0.03 0.00 - 0.06 [facility] 10*3/uL SERVICES LYMPH x10^3 0.91 (L) 1.32 - 3.29 [facility] 10*3/uL SERVICES MONO x10^3 0.58 0.33 - 0.92 [facility] 10*3/uL SERVICES EOS x10^3 0.15 0.03 - 0.39 [facility] 10*3/uL SERVICES BASO x10^3 <0.03 0.01 - 0.07 [facility] 10*3/uL SERVICES ELLIPTO/OVAL 2+ (A) (none) [facility] POLYCHROMASIA 2+ 2+ [facility] Specimen Blood - ARM, LEFT Performing Organization Address [facility] Phone Number [facility] CLIA: [id number], [address] [place] [address] [facility] PROTHROMBIN TIME / INR (11/02/2019 4:23 AM CDT) PROTIME PATIENT 11.6 10.1 - 12.6 [facility] Seconds SERVICES INR 1.0Comment: Normal [facility] INR <1.1; Warfarin SERVICES Therapeutic range 2.0 to 3.0 or 2.5 to 3.5, depending upon the indications. Specimen Blood - ARM, LEFT Performing Organization Address [facility] Phone Number [facility] CLIA: [id number], [address] [place] [address] [facility] MAGNESIUM (11/02/2019 4:23 AM CDT) Pathologist Sig nature MAGNESIUM 1.6 (L) 1.7 - 2.4 mg/dL [facility] Specimen Blood - ARM, LEFT Performing Organization Address [facility] Phone Number [facility] CLIA: [id number], [address] [place] [address] [facility] BASIC METABOLIC PANEL (NA, K, CL, CO2, GLUCOSE, BUN, CREATININE, CA) (11/02/2019 4:23 AM CDT) Pathologist Sig nature NA 132 (L) 135 - 145 [facility] mmol/L SERVICES K 4.0 3.5 - 5.0 [facility] mmol/L SERVICES CL 89 (L) 98 - 108 mmol/L [facility] CO2 TOTAL 40 (H) 23 - 31 mmol/L [facility] AGAP 3 2 - 16 [facility] BUN 18 7 - 23 mg/dL [facility] GLUCOSE 103 70 - 110 mg/dL [facility] CREATININE 0.65 0.50 - 1.04 [facility] mg/dL SERVICES CALCIUM 8.9 8.6 - 10.6 [facility] mg/dL SERVICES eGFR Calculation 100.4 mL/min/1.73m2 [facility] (Non- SERVICES Swedish) eGFR Calculation 121.7 mL/min/1.73m2 [facility] () SERVICES Specimen Blood - ARM, LEFT Narrative Performed At Association of Glomerular Filtration Rate (GFR) and St aging [facility] of Kidney Disease* + + +------- ------ + | GFR (mL/min/1.73 m2) | With Kidney Damage | Wi out Kidney Damage + + +------- ------ + | >90 | Stage one | Normal + + +------- ------ + | 60-89 | Stage two | Decreased GFR + + +------- ------ + | 30-59 | Stage three | Stage three + + +------- ------ + | 15-29 | Stage four | Stage four + + +------- ------ + | <15 (or dialysis) | Stage five | Stage five + + +------- ------ + *Each stage assumes the associated GFR level has been in effect for at least three months. Stages 1 to 5, wit h or without kidney disease, indicate chronic kidney disease. Notes: Determination of stages one and two (with eGFR >59mL/min/1.73 m2) requires estimation of kidney damag e for at least three months as defined by structural or func tional abnormalities of the kidney, manifested by either: Pathological abnormalities or Markers of kidney damage (including abnormalities in the composition of the blo od or urine or abnormalities in imaging tests) . Performing Organization Address City/State/[facility] Unit[facility] Phone Number [facility] CLIA: [id number], [address] [place] [phone] [facility] POCT GLUCOSE (AUTOMATED) (11/01/2019 11:33 PM CDT) [facility] POCT GLU 129 (H) 70 - 110 mg/dL [facility] Specimen Blood Performing Organization Address City/[facility] Phone Number [facility] CLIA: [id number], [address] [place] [address] [facility] POCT GLUCOSE (AUTOMATED) (11/01/2019 6:33 PM CDT) Pathologist Sig [facility] POCT GLU 130 (H) 70 - 110 mg/dL [facility] Specimen Blood Performing Organization Address City/[facility] Phone Number [facility] CLIA: [id number], [address] [place] [address] [facility] aPTT (11/01/2019 6:15 PM CDT) Pathologist Sig [facility] APTT Patient 64 (H) 26 - 36 Seconds [facility] Specimen Blood - HAND, RIGHT Performing Organization Address [facility] Phone Number [facility] CLIA: [id number], [address] [place] [phone] [facility] TROPONIN I (11/01/2019 6:15 PM CDT) [facility] TROPONIN I 0.002 <=0.034 ng/mL [facility] Specimen Blood - HAND, RIGHT Narrative Performed At Equal or Less than 0.034 ng/ml---Normal [facility] Note: Cardiac troponin begins to rise 3-4 hours after the onset of ischemia. Repeat in 4-6 hours if the sample w as drawn within 3-4 hours of the onset of the symptom and found normal. Between 0.035 and 0.120 ng/mL--- Borderline. Questiona ble myocardial injury or necrosis Note: Serial measurement may be necessary to confirm o r exclude the diagnosis of myocardial injury or necrosis ; Clinical correlation (symptoms, EKGs, imaging studies, and others) required; Repeat in 4-6 hours if clinically indicated. Equal or Higher than 0.121 ng/mL---Abnormal. Myocardia l Injury or Necrosis Likely Biotin has been reported to cause a negative bias, int erpret results relative to patient's use of biotin. Performing Organization Address [facility] Phone Number [facility] CLIA: [id number], [address] [place] [phone] [facility] POCT GLUCOSE (AUTOMATED) (11/01/2019 12:16 PM CDT) Pathologist [facility] nature POCT GLU 108 70 - 110 mg/dL [facility] Specimen Blood Performing Organization Address City/State/Zipcode Phone Number [facility] CLIA: [id number], [address], [place] [address] [place] XR CHEST 1 VW (11/01/2019 8:57 AM CDT) Specimen Narrative Performed At EXAM: XR CHEST 1 VW PACS/VR/DOSE HISTORY: chest pain COMPARISON: None. FINDINGS: The tip of the tracheostomy device is at the lower lev el of the clavicles and the tip of an IJ line is in the supe rior vena cava. The heart is enlarged and squats upon an elevated angel phragm, increasing its apparent size. The lungs are poorly expanded with crowded vascu lar markings but no focal infiltration to suggest pneumonia. Procedure Note [facility], Radiant Results Inft User - 2019 9:18 AM CDT EXAM: XR CHEST 1 VW HISTORY: chest pain COMPARISON: None. FINDINGS: The tip of the tracheostomy device is at the lower level of the clavicles and the tip of an IJ line is in the supe rior vena cava. The heart is enlarged and squats upon an elevated angel phragm, increasing its apparent size. The lungs are poorly expanded with crowded vascular markings but no focal infiltration to suggest pneumonia. Performing Organization Address City/State/Zipcode Phone Number PACS/VR/DOSE aPTT (11/01/2019 7:44 AM CDT) Pathologist Sig nature APTT Patient 54 (H) 26 - 36 Seconds [facility] Specimen Blood - ARM, RIGHT Performing Organization Address City/State/Zipcode Phone Number [facility] CLIA: [id number], [address] [place] [phone] LIPID PANEL ([id number])(TOTAL CHOLESTEROL, TRIGLYCERIDES, HDL) (11/01/2019 7:41 AM CDT) Pathologist Sig nature CHOL 116 (L) 120 - 200 mg/dL [facility] HDL 35 (L) >50 mg/dL [facility] HDLC RATIO 3.3 <=4.5 [facility] TRIG 107 30 - 170 mg/dL [facility] LDL CHOL 60 <=160 mg/dL [facility] VLDL 21 5 - 60 mg/dL [facility] Specimen Blood - ARM, RIGHT Performing Organization Address [facility] Phone Number [facility] CLIA: [id number], [address], [place] [address] [facility] MAGNESIUM (11/01/2019 7:41 AM CDT) Pathologist Sig nature MAGNESIUM 1.7 1.7 - 2.4 mg/dL [facility] Specimen Blood - ARM, RIGHT Performing Organization Address [facility] Phone Number [facility] CLIA: [id number], [address], [place] [address] [facility] BASIC METABOLIC PANEL (NA, K, CL, CO2, GLUCOSE, BUN, CREATININE, CA) (11/01/2019 7:41 AM CDT) Pathologist Sig nature NA 132 (L) 135 - 145 [facility] mmol/L SERVICES K 4.1 3.5 - 5.0 [facility] mmol/L SERVICES CL 87 (L) 98 - 108 mmol/L [facility] SERVICES CO2 TOTAL 37 (H) 23 - 31 mmol/L [facility] SERVICES AGAP 8 2 - 16 [facility] BUN 16 7 - 23 mg/dL [facility] SERVICES GLUCOSE 101 70 - 110 mg/dL [facility] CREATININE 0.54 0.50 - 1.04 [facility] mg/dL SERVICES CALCIUM 9.1 8.6 - 10.6 [facility] mg/dL SERVICES eGFR Calculation 124.4 mL/min/1.73m2 [facility] (Non- SERVICES Swedish) eGFR Calculation 150.8 mL/min/1.73m2 [facility] () SERVICES Specimen Blood - ARM, RIGHT Narrative Performed At Association of Glomerular Filtration Rate (GFR) and St aging [facility] SERVICES of Kidney Disease* + + +------- ------ + | GFR (mL/min/1.73 m2) | With Kidney Damage | Wi thout Kidney Damage + + +------- ------ + | >90 | Stage one | Normal + + +------- ------ + | 60-89 | Stage two | Decreased GFR + + +------- ------ + | 30-59 | Stage three | Stage three + + +------- ------ + | 15-29 | Stage four | Stage four + + +------- ------ + | <15 (or dialysis) | Stage five | Stage five + + +------- ------ + *Each stage assumes the associated GFR level has been in effect for at least three months. Stages 1 to 5, wit h or without kidney disease, indicate chronic kidney disease. Notes: Determination of stages one and two (with eGFR >59mL/min/1.73 m2) requires estimation of kidney damag e for at least three months as defined by structural or func tional abnormalities of the kidney, manifested by either: Pathological abnormalities or Markers of kidney damage (including abnormalities in the composition of the blo od or urine or abnormalities in imaging tests) . Performing Organization Address [facility] Phone Number [facility] CLIA: [id number], [address] [place] [address] [phone] [facility] TROPONIN I (11/01/2019 7:41 AM CDT) Pathologist Sig Allani TROPONIN I 0.003 <=0.034 ng/mL [facility] Specimen Blood - ARM, RIGHT Narrative Performed At Equal or Less than 0.034 ng/ml---Normal [facility] Note: Cardiac troponin begins to rise 3-4 hours after the onset of ischemia. Repeat in 4-6 hours if the sample w as drawn within 3-4 hours of the onset of the symptom and found normal. Between 0.035 and 0.120 ng/mL--- Borderline. Questiona ble myocardial injury or necrosis Note: Serial measurement may be necessary to confirm o r exclude the diagnosis of myocardial injury or necrosis ; Clinical correlation (symptoms, EKGs, imaging studies, and others) required; Repeat in 4-6 hours if clinically indicated. Equal or Higher than 0.121 ng/mL---Abnormal. Myocardia l Injury or Necrosis Likely Biotin has been reported to cause a negative bias, int erpret results relative to patient's use of biotin. Performing Organization Address [facility] Phone Number [facility] CLIA: [id number], [address] [place] [address] [phone] [facility] POCT GLUCOSE (AUTOMATED) (11/01/2019 6:48 AM CDT) [facility] Allani POCT GLU 115 (H) 70 - 110 mg/dL [facility] Specimen Blood Performing Organization Address City/[facility] Phone Number [facility] CLIA: [id number], [address] [place] [address] [phone] [facility] aPTT (11/01/2019 1:17 AM CDT) Pathologist Sig nature APTT Patient 49 (H) 26 - 36 Seconds [facility] Specimen Blood - ARM, RIGHT Performing Organization Address City/[facility] Phone Number [facility] CLIA: [id number], [address] [place] [address] [phone] [facility] PROTHROMBIN TIME / INR (11/01/2019 1:17 AM CDT) PROTIME PATIENT 11.3 10.1 - 12.6 [facility] Seconds SERVICES INR 1.0Comment: Normal [facility] INR <1.1; Warfarin SERVICES Therapeutic range 2.0 to 3.0 or 2.5 to 3.5, depending upon the indications. Specimen Blood - ARM, RIGHT Performing Organization Address [facility] Phone Number [facility] CLIA: [id number], [address] [place] [address] [phone] [facility] POCT GLUCOSE (AUTOMATED) (10/31/2019 11:29 PM CDT) Pathologist Sig nature POCT GLU 106 70 - 110 mg/dL [facility] Specimen Blood Performing Organization Address [facility] Phone Number [facility] CLIA: [id number], [address] [place] [address] [phone] [facility] POCT GLUCOSE (AUTOMATED) (10/31/2019 6:03 PM CDT) Pathologist Sig nature POCT GLU 140 (H) 70 - 110 mg/dL [facility] Specimen Blood Performing Organization Address [facility] Phone Number [facility] CLIA: [id number], [address] [place] [address] [phone] [facility] aPTT (10/31/2019 5:19 PM CDT) Pathologist Sig nature APTT Patient 46 (H) 26 - 36 Seconds [facility] Specimen Blood - HAND, RIGHT Performing Organization Address City/[facility] Phone Number [facility] CLIA: [id number], [address] [place] [address] [phone] [facility] PROTHROMBIN TIME / INR (10/31/2019 1:03 PM CDT) PROTIME PATIENT 11.6 10.1 - 12.6 [facility] Seconds SERVICES INR 1.0Comment: Normal [facility] INR <1.1; Warfarin SERVICES Therapeutic range 2.0 to 3.0 or 2.5 to 3.5, depending upon the indications. Specimen Blood - HAND, RIGHT Performing Organization Address City/State/Zipcode Phone Number [facility] CLIA: [id number], [address] [place] [address] [phone] [facility] POCT GLUCOSE (AUTOMATED) (10/31/2019 12:07 PM CDT) Pathologist Sig nature POCT GLU 94 70 - 110 mg/dL [facility] Specimen Blood Performing Organization Address City/[facility]/Zipcode Phone Number [facility] CLIA: [id number], [address] [place] [address] [phone] [facility] XR KNEE 3 VW LEFT (10/31/2019 10:46 AM CDT) Specimen Impressions Performed At PACS/VR/DOSE No acute osseous abnormality. Mild to moderate knee osteoarthrosis. Preliminary Report Dictated by Resident: Neto Lee I, Elodia Aden MD., have reviewed this study an d agree with the above report. Narrative Performed At XR KNEE 3 VW LEFT PACS/VR/DOSE HISTORY: 43 years-old Female Knee pain, reduced ROM COMPARISON: None FINDINGS: Radiographs of the knee demonstrate no a cute fracture or dislocation. Tricompartmental subchondral sclerosis a nd marginal osteophytosis of the knee is appreciated. Tibial spine hypert rophy is noted. No soft tissue abnormality is seen. A small joint effus ion is suspected. Procedure Note [facility], Radiant Results Inft User - 2019 1:31 PM CDT XR KNEE 3 VW LEFT HISTORY: 43 years-old Female Knee pain, reduced ROM COMPARISON: None FINDINGS: Radiographs of the knee demonstrate no a cute fracture or dislocation. Tricompartmental subchondral sclerosis a nd marginal osteophytosis of the knee is appreciated. Tibial spine hypert rophy is noted. No soft tissue abnormality is seen. A small joint effus ion is suspected. IMPRESSION No acute osseous abnormality. Mild to moderate knee osteoarthrosis. Preliminary Report Dictated by Resident: Neto Lee I, Elodia Aden MD., have reviewed this study and agree with the above report. Performing Organization Address City/State/Zipcode Phone Number PACS/VR/DOSE POCT GLUCOSE (AUTOMATED) (10/31/2019 6:08 AM CDT) Pathologist Sig nature POCT GLU 102 70 - 110 mg/dL [facility] Specimen Blood Performing Organization Address City/[facility] Phone Number [facility] CLIA: [id number], [address] [place] [address] [phone] [place] aPTT (10/31/2019 4:41 AM CDT) Pathologist Sig nature APTT Patient 46 (H) 26 - 36 Seconds [facility] Specimen Blood - ARM, RIGHT Performing Organization Address [facility] Phone Number [facility] CLIA: [id number], [address] [place] [phone] [place] [address] CBC WITH DIFFERENTIAL (10/31/2019 4:41 AM CDT) Pathologist Sig nature WBC 3.93 (L) 4.30 - 11.10 [facility] 10*3/L SERVICES RBC 4.07 3.93 - 5.25 [facility] 10*6/L SERVICES HGB 9.9 (L) 11.6 - 15.0 [facility] g/dL SERVICES HCT 35.3 (L) 35.7 - 45.2 % [facility] MCV 86.7 80.6 - 95.5 fL [facility] MCH 24.3 (L) 25.9 - 32.8 pg [facility] MCHC 28.0 (L) 31.6 - 35.1 [facility] g/dL SERVICES RDW-SD 75.7 (H) 39.0 - 49.9 fL [facility] RDW-CV 24.9 (H) 12.0 - 15.5 % [facility] PLT 266 166 - 358 [facility] 10*3/L SERVICES MPV 9.6 9.5 - 12.9 fL [facility] NRBC/100 WBC 0.0 0.0 - 10.0 /100 [facility] WBCs SERVICES NRBC x10^3 <0.01 10*3/L [facility] GRAN MAT (NEUT) % 62.0 % [facility] IMM GRAN % 0.00 % [facility] LYMPH % 21.4 % [facility] MONO % 11.5 % [facility] EOS % 4.8 % [facility] BASO % 0.3 % [facility] GRAN MAT x10^3(ANC) 2.44 1.88 - 7.09 [facility] 10*3/uL SERVICES IMM GRAN x10^3 <0.03 0.00 - 0.06 [facility] 10*3/uL SERVICES LYMPH x10^3 0.84 (L) 1.32 - 3.29 [facility] 10*3/uL SERVICES MONO x10^3 0.45 0.33 - 0.92 [facility] 10*3/uL SERVICES EOS x10^3 0.19 0.03 - 0.39 [facility] 10*3/uL SERVICES BASO x10^3 <0.03 0.01 - 0.07 [facility] 10*3/uL SERVICES Specimen Blood - ARM, RIGHT Performing Organization Address City/[facility]/Zipcode Phone Number [facility] CLIA: [id number], [address] [place] [address] 555 [facility] MAGNESIUM (10/31/2019 4:41 AM CDT) Pathologist [facility] MAGNESIUM 1.7 1.7 - 2.4 mg/dL [facility] Specimen Blood - ARM, RIGHT Performing Organization Address City/[facility] Phone Number [facility] CLIA: [id number], [address] [place] [address] 555 [facility] BASIC METABOLIC PANEL (NA, K, CL, CO2, GLUCOSE, BUN, CREATININE, CA) (10/31/2019 4:41 AM CDT) Pathologist Sig nature NA 134 (L) 135 - 145 [facility] mmol/L SERVICES K 4.0 3.5 - 5.0 [facility] mmol/L SERVICES CL 87 (L) 98 - 108 mmol/L [facility] CO2 TOTAL 38 (H) 23 - 31 mmol/L [facility] AGAP 9 2 - 16 [facility] BUN 16 7 - 23 mg/dL [facility] GLUCOSE 101 70 - 110 mg/dL [facility] CREATININE 0.64 0.50 - 1.04 [facility] mg/dL SERVICES CALCIUM 8.9 8.6 - 10.6 [facility] mg/dL SERVICES eGFR Calculation 102.3 mL/min/1.73m2 [facility] (Non- SERVICES Swedish) eGFR Calculation 123.9 mL/min/1.73m2 [facility] () SERVICES Specimen Blood - ARM, RIGHT Narrative Performed At Association of Glomerular Filtration Rate (GFR) and St aging [facility] of Kidney Disease* + + +------- ------ + | GFR (mL/min/1.73 m2) | With Kidney Damage | Wi thout Kidney Damage + + +------- ------ + | >90 | Stage one | Normal + + +------- ------ + | 60-89 | Stage two | Decreased GFR + + +------- ------ + | 30-59 | Stage three | Stage three + + +------- ------ + | 15-29 | Stage four | Stage four + + +------- ------ + | <15 (or dialysis) | Stage five | Stage five + + +------- ------ + *Each stage assumes the associated GFR level has been in effect for at least three months. Stages 1 to 5, wit h or without kidney disease, indicate chronic kidney disease. Notes: Determination of stages one and two (with eGFR >59mL/min/1.73 m2) requires estimation of kidney damag e for at least three months as defined by structural or func tional abnormalities of the kidney, manifested by either: Pathological abnormalities or Markers of kidney damage (including abnormalities in the composition of the blo od or urine or abnormalities in imaging tests) . Performing Organization Address City/[facility] Phone Number [facility] CLIA: [id number], [address] [place] [address] [phone] [place] [address] POCT GLUCOSE (AUTOMATED) (10/31/2019 1:24 AM CDT) Pathologist Sig nature POCT GLU 109 70 - 110 mg/dL [facility] Specimen Blood Performing Organization Address City/[facility] Phone Number [facility] CLIA: [id number], [address] [place], [place] [address] [place] aPTT (10/30/2019 6:28 PM CDT) Pathologist Sig nature APTT Patient 37 (H) 26 - 36 Seconds [facility] Specimen Blood - ARM, LEFT Performing Organization Address [facility] Phone Number [facility] CLIA: [id number], [address] [place] [address] 77 [phone] [facility] POCT GLUCOSE (AUTOMATED) (10/30/2019 6:05 PM CDT) Pathologist Sig nature POCT GLU 108 70 - 110 mg/dL [facility] Specimen Blood Performing Organization Address [facility] Phone Number [facility] CLIA: [id number], [address] [place] [address] [phone] [facility] POCT GLUCOSE (AUTOMATED) (10/30/2019 12:18 PM CDT) Pathologist Sig nature POCT GLU 110 70 - 110 mg/dL [facility] Specimen Blood Performing Organization Address [facility] Phone Number [facility] CLIA: [id number], [address] [place] [address] 7755 [facility] aPTT (10/30/2019 10:40 AM CDT) Pathologist Sig nature APTT Patient 29 26 - 36 Seconds [facility] Specimen Blood - ARM, RIGHT Performing Organization Address [facility] Phone Number [facility] CLIA: [id number], [address] [place] [address] [phone] [facility] POCT GLUCOSE (AUTOMATED) (10/30/2019 6:19 AM CDT) Pathologist Sig nature POCT GLU 109 70 - 110 mg/dL [facility] Specimen Blood Performing Organization Address [facility] Phone Number [facility] CLIA: [id number], [address] [place] [address] [phone] [facility] aPTT (10/30/2019 3:38 AM CDT) Pathologist Sig nature APTT Patient 24 (L) 26 - 36 Seconds [facility] Specimen Blood - HAND, RIGHT Performing Organization Address City/[facility] Phone Number [facility] CLIA: [id number], [address] [place] [address] [phone] [facility] POCT GLUCOSE (AUTOMATED) (10/30/2019 1:15 AM CDT) Pathologist Sig nature POCT GLU 134 (H) 70 - 110 mg/dL [facility] Specimen Blood Performing Organization Address City/[facility]/Zipcode Phone Number [facility] CLIA: [id number], [address] [place] [address] [phone] [facility] POCT GLUCOSE (AUTOMATED) (10/29/2019 6:07 PM CDT) Pathologist Sig nature POCT GLU 102 70 - 110 mg/dL [facility] Specimen Blood Performing Organization Address [facility] Phone Number [facility] CLIA: [id number], [address] [place] [address] 7[address] [facility] BARIUM SWALLOW ESOPHAGUS (10/29/2019 3:55 PM CDT) Specimen Impressions Performed At PACS/VR/DOSE Normal barium swallow. Preliminary Report Dictated by Resident: Bolivar Colunga I reviewed this study and agree. Franklyn Abad MD., have reviewe d this study and agree with the above report. Narrative Performed At PACS/VR/DOSE BARIUM SWALLOW HISTORY: Esophagitis TECHNIQUE AND FINDINGS: The patient was administered barium by mouth. Fluoro scopy and films of the hypopharynx, esophagus, and stomach demonstrate no str uctural or functional abnormality. No gastroesophageal reflux or contrast extravasation w as identified during the examination. Procedure Note [facility], Radiant Results Inft User - 2019 9:26 AM CDT BARIUM SWALLOW HISTORY: Esophagitis TECHNIQUE AND FINDINGS: The patient was administered barium by [facility]. Fluoroscopy and films of the hypopharynx, esophagus, and stomach demo nstrate no structural or functional abnormality. No gastroesophageal reflux or contrast e xtravasation was identified during the examination. IMPRESSION Normal barium swallow. Preliminary Report Dictated by Resident: Bolivar oClunga I reviewed this study and agree. Franklyn Abad MD., have reviewe d this study and agree with the above report. Performing Organization Address City/State/Zipcode Phone Number PACS/VR/DOSE CT CHEST PULMONARY ANGIOGRAM (10/29/2019 3:09 PM CDT) Specimen Impressions Performed At PACS/VR/DOSE 1. Bilateral pulmonary emboli in the distal subsegme ntal lower lobes as described above with straightening of th e interventricular septum suggestive of right heart strain. 2. Severe cardiomegaly with image findings consisten t with mild pulmonary edema and congestive heart failure. 3. Pulmonary trunk dilation, consisten t with pulmonary artery hypertension. 4. Right atrial and right ventricular enlargement with straightening of the interventricular septum suggestive of ri ght heart strain. Heterogeneous appearance of the right atrium. The areas of low atten uation are concerning for additional filling defects within th e right atrium versus suboptimal opacification of the chamber, including right atrial appendage. A few suspicious areas of thrombi are also pre sent in the dilated right ventricle. The above findings were communicated to and acknowledg ed by Dr. Gallo with the [facility] team at 15:47 on 10/29/2019. Consider echoc ardiography or repeat more optimal CTA for evaluation of the right atrium an d right ventricle for presence of thrombi. Preliminary Report Dictated by Resident: Matilda Brower I, Marjan Ly MD., have reviewed this study and agree with the above report. Narrative Performed At PROCEDURE: CT ANGIO CHEST WITH CONTRAST - PE PROTOCOL PACS/VR/DOSE CLINICAL INDICATION: PE suspected, intermediate prob, positive D-dimer COMPARISON: None. TECHNIQUE: Helical CT was performed an d reconstructed at 1.25 mm slice thickness from lung base to apices after the administration of 120 mL Omnipaque-350 intravenous contrast, without complicati on. Display field of view: 40 cm. FINDINGS: PULMONARY ARTERIES: Enhancement is suboptimal, and the underlying examinat ion is significantly limited due to quantum mottle artifact, however hypode nse filling defects in the medial and posterior basal right and posterior basal left lower lobe distal segmental pulmonary arteries is consistent wit h emboli (3:125). The main pulmonary artery is dilated to 4.7 cm in greatest diameter. There is straightening of the intraventricular se ptum, suggestive of right heart strain. CHEST: Lower neck/thyroid: Unremarkable. Lungs and pleura: Mosaic attenuation with scattered gr oundglass opacities, greatest in the right lower lobe are sup erimposed on linear subsegmental bibasilar atelectasis. A partially locul ated right pleural effusion is seen. No pneumothorax. Central airway: The patient is intubated, the endotrac heal tube terminates 3.8 cm above the nelson. 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 Thoracic aorta and great vessels: Normal in diameter. Heart and pericardium: Minimal scattered coronary paul rial calcification. Right atrial and right ventricular enlar gement with straightening of the interventricular septum suggestive of ri ght heart strain. Heterogeneous appearance of the right atrium. The areas of low atten uation are concerning for additional filling defects within th e right atrium versus suboptimal opacification of the chamber, including right atrial appendage. A few suspicious areas of thrombi are also pre sent in the dilated right ventricle. Lymph nodes: Reactive bilateral hilar l ymph nodes, right greater than left. Mediastinum: Unremarkable. Thoracic spine and chest wall: Chronic left-sided fift h through seventh rib fractures are noted. No acute osseous ab normality. Visualized upper abdomen: Unremarkable, within the limits of this examination and significant quantum eduardo le artifact. Procedure Note [facility], Radiant Results Inft User - 2019 4:06 PM CDT PROCEDURE: CT ANGIO CHEST WITH CONTRAST - PE PROTOCOL CLINICAL INDICATION: PE suspected, inter mediate prob, positive D-dimer COMPARISON: None. TECHNIQUE: Helical CT was performed and reconstructed at 1.25 mm slice thickness from lung base to apices after the administration of 120 mL Omnipaque-350 intravenous contrast, with out complication. Display field of view: 40 cm. FINDINGS: PULMONARY ARTERIES: Enhancement is suboptimal, and the under lying examination is significantly limited due to quantum mottle artifact, however hypodense filling defects in the medial and posterior basal right and posterior basal left lower lobe distal segmental pulmonary arteries is consistent with emboli (3:125). The main pulmonary artery is dilated to 4.7 cm in greatest diameter. There is straightening of the intraventricular se ptum, suggestive of right heart strain. CHEST: Lower neck/thyroid: Unremarkable. Lungs and pleura: Mosaic attenuation wit h scattered groundglass opacities, greatest in the right lower lobe are sup erimposed on linear subsegmental bibasilar atelectasis. A partially locul ated right pleural effusion is seen. No pneumothorax. Central airway: The patient is intubated , the endotracheal tube terminates 3.8 cm above the nelson. 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 Thoracic aorta and great vessels: Normal in diameter. Heart and pericardium: Minimal scattered coronary arterial calcification. Right atrial and right ventricular enlar gement with straightening of the interventricular septum suggestive of ri ght heart strain. Heterogeneous appearance of the right atrium. The area s of low attenuation are concerning for additional filling defects within th e right atrium versus suboptimal opacification of the chamber, including right atrial appendage. A few suspicious areas of thrombi are also pre sent in the dilated right ventricle. Lymph nodes: Reactive bilateral hilar l ymph nodes, right greater than left. Mediastinum: Unremarkable. Thoracic spine and chest wall: Chronic l eft-sided fifth through seventh rib fractures are noted. No acute osseous ab normality. Visualized upper abdomen: Unremarkable, within the limits of this examination and significant quantum eduardo le artifact. IMPRESSION 1. Bilateral pulmonary emboli in the di stal subsegmental lower lobes as described above with straightening of th e interventricular septum suggestive of right heart strain. 2. Severe cardiomegaly with image findi ngs consistent with mild pulmonary edema and congestive heart failure. 3. Pulmonary trunk dilation, consistent with pulmonary artery hypertension. 4. Right atrial and right ventricular en largement with straightening of the interventricular septum suggestive of ri ght heart strain. Heterogeneous appearance of the right atrium. The area s of low attenuation are concerning for additional filling defects within th e right atrium versus suboptimal opacification of the chamber, including right atrial appendage. A few suspicious areas of thrombi are also pre sent in the dilated right ventricle. The above findings were communicated to and acknowledged by Dr. Gallo with the [facility] team at 15:47 on 10/29/2019. Consider echocardiography or repeat more optimal CTA for evaluation of the r ight atrium and right ventricle for presence of thrombi. Preliminary Report Dictated by Resident: Matilda Brower I, Marjan Ly MD., have reviewed this study and agree with the above report. Performing Organization Address City/[facility]/Zipcode Phone Number PACS/VR/DOSE POCT GLUCOSE (AUTOMATED) (10/29/2019 12:54 PM CDT) Pathologist Sig [facility] POCT GLU 131 (H) 70 - 110 mg/dL [facility] Specimen Blood Performing Organization Address City/[facility]/Zipcode Phone Number [facility] CLIA: [id number], [address] [place] [address] 77 [facility] POCT GLUCOSE (AUTOMATED) (10/29/2019 6:06 AM CDT) Pathologist [facility] POCT GLU 104 70 - 110 mg/dL [facility] Specimen Blood Performing Organization Address City/[facility] Phone Number [facility] CLIA: [id number], [address] [place] [address] [facility] CBC WITH DIFFERENTIAL (10/29/2019 4:47 AM CDT) Pathologist Sig [facility] WBC 6.98 4.30 - 11.10 [facility] 10*3/L SERVICES RBC 3.92 (L) 3.93 - 5.25 [facility] 10*6/L SERVICES HGB 9.5 (L) 11.6 - 15.0 [facility] g/dL SERVICES HCT 34.5 (L) 35.7 - 45.2 % [facility] MCV 88.0 80.6 - 95.5 fL [facility] MCH 24.2 (L) 25.9 - 32.8 pg [facility] MCHC 27.5 (L) 31.6 - 35.1 [facility] g/dL SERVICES RDW-SD 81.0 (H) 39.0 - 49.9 fL [facility] RDW-CV 26.0 (H) 12.0 - 15.5 % [facility] PLT 346 166 - 358 [facility] 10*3/L SERVICES MPV 10.8 9.5 - 12.9 fL [facility] NRBC/100 WBC 0.0 0.0 - 10.0 /100 [facility] WBCs SERVICES NRBC x10^3 <0.01 10*3/L [facility] GRAN MAT (NEUT) % 72.2 % [facility] IMM GRAN % 0.30 % [facility] LYMPH % 15.9 % [facility] MONO % 8.2 % [facility] EOS % 3.3 % [facility] BASO % 0.1 % [facility] GRAN MAT x10^3(ANC) 5.04 1.88 - 7.09 [facility] 10*3/uL SERVICES IMM GRAN x10^3 <0.03 0.00 - 0.06 [facility] 10*3/uL SERVICES LYMPH x10^3 1.11 (L) 1.32 - 3.29 [facility] 10*3/uL SERVICES MONO x10^3 0.57 0.33 - 0.92 [facility] 10*3/uL SERVICES EOS x10^3 0.23 0.03 - 0.39 [facility] 10*3/uL SERVICES BASO x10^3 <0.03 0.01 - 0.07 [facility] 10*3/uL SERVICES Specimen Blood - HAND, RIGHT Performing Organization Address City/[facility]/Zipcode Phone Number [facility] CLIA: [id number], [address] [place] [address] 555 [facility] MAGNESIUM (10/29/2019 4:47 AM CDT) Pathologist Sig nature MAGNESIUM 1.8 1.7 - 2.4 mg/dL [facility] Specimen Blood - HAND, RIGHT Performing Organization Address City/[facility]/Zipcode Phone Number [facility] CLIA: [id number], [address] [place] [address] 555 [facility] BASIC METABOLIC PANEL (NA, K, CL, CO2, GLUCOSE, BUN, CREATININE, CA) (10/29/2019 4:47 AM CDT) NA 133 (L) 135 - 145 [facility] mmol/L SERVICES K 3.9 3.5 - 5.0 [facility] mmol/L SERVICES CL 86 (L) 98 - 108 mmol/L [facility] CO2 TOTAL 40 (H) 23 - 31 mmol/L [facility] AGAP 7 2 - 16 [facility] BUN 19 7 - 23 mg/dL [facility] GLUCOSE 106 70 - 110 mg/dL [facility] CREATININE 0.47 (L) 0.50 - 1.04 [facility] mg/dL SERVICES CALCIUM 8.9 8.6 - 10.6 [facility] mg/dL SERVICES eGFR Calculation 146.0 mL/min/1.73m2 [facility] (Non- SERVICES Swedish) eGFR Calculation 177.0 mL/min/1.73m2 [facility] () SERVICES Specimen Blood - HAND, RIGHT Narrative Performed At Association of Glomerular Filtration Rate (GFR) and St aging [facility] of Kidney Disease* + + +------- ------ + | GFR (mL/min/1.73 m2) | With Kidney Damage | Wi thout Kidney Damage + + +------- ------ + | >90 | Stage one | Normal + + +------- ------ + | 60-89 | Stage two | Decreased GFR + + +------- ------ + | 30-59 | Stage three | Stage three + + +------- ------ + | 15-29 | Stage four | Stage four + + +------- ------ + | <15 (or dialysis) | Stage five | Stage five + + +------- ------ + *Each stage assumes the associated GFR level has been in effect for at least three months. Stages 1 to 5, wit h or without kidney disease, indicate chronic kidney disease. Notes: Determination of stages one and two (with eGFR >59mL/min/1.73 m2) requires estimation of kidney damag e for at least three months as defined by structural or func tional abnormalities of the kidney, manifested by either: Pathological abnormalities or Markers of kidney damage (including abnormalities in the composition of the blo od or urine or abnormalities in imaging tests) . Performing Organization Address City/[facility]/Zipcode Phone Number [facility] CLIA: [id number], [address] [place] [address] 555 [facility] POCT GLUCOSE (AUTOMATED) (10/29/2019 12:39 AM CDT) [facility] POCT GLU 156 (H) 70 - 110 mg/dL [facility] Specimen Blood Performing Organization Address City/[facility]/Zipcode Phone Number [facility] CLIA: [id number], [address] [place] [address]755 [facility] POCT GLUCOSE (AUTOMATED) (10/29/2019 12:21 AM CDT) Pathologist Sig nature POCT GLU 102 70 - 110 mg/dL [facility] Specimen Blood Performing Organization Address [facility] Phone Number [facility] CLIA: [id number], [address] [place] [address] [facility] POCT GLUCOSE (AUTOMATED) (10/28/2019 5:48 PM CDT) Pathologist Sig nature POCT GLU 110 70 - 110 mg/dL [facility] Specimen Blood Performing Organization Address [facility] Phone Number [facility] CLIA: [id number], [address] [place] [address] [facility] MOD BARIUM SWALLOW, (COOKIE) (10/28/2019 4:23 PM CDT) Specimen Impressions Performed At PACS/VR/DOSE Aspiration of thin liquids with reflux and minimal res idual in the piriform sinuses. Please refer to the speech pathologist's report for further details. Preliminary Report Dictated by Resident: Bolivar Colunga I reviewed this study and agree. IFranklyn MD., have reviewe d this study and agree with the above report. Narrative Performed At PACS/VR/DOSE [place] MODIFIED BARIUM SWALLOW HISTORY: has NGT in place, checking to s ee if safe to swallow TECHNIQUE and FINDINGS: Barium of varying consistencies from thi n liquids to solids was administered to the patient during fluor oscopy. The study was performed with the speech pathologists. Aspiration of thin liquids was seen. Als o, reflux of the different consistencies was noted with minimal res idue along the piriform sinuses. Procedure Note [facility], Radiant Results Inft User - 2019 9:31 AM CDT [place] MODIFIED BARIUM SWALLOW HISTORY: has NGT in place, checking to s ee if safe to swallow TECHNIQUE and FINDINGS: Barium of varying consistencies from thi n liquids to solids was administered to the patient during fluor oscopy. The study was performed with the speech pathologists. Aspiration of thin liquids was seen. Als o, reflux of the different consistencies was noted with minimal res idue along the piriform sinuses. IMPRESSION Aspiration of thin liquids with reflux a nd minimal residual in the piriform sinuses. Please refer to the speech pathologist's report for further details. Preliminary Report Dictated by Resident: Bolivar Colunga I reviewed this study and agree. I, Franklyn Lozano MD., have reviewe d this study and agree with the above report. Performing Organization Address [facility] Phone Number PACS/VR/DOSE POCT GLUCOSE (AUTOMATED) (10/28/2019 12:10 PM CDT) Pathologist Sig nature POCT GLU 110 70 - 110 mg/dL [facility] Specimen Blood Performing Organization Address [facility] Phone Number [facility] CLIA: [id number], [address] [place] [address] [employer] POCT GLUCOSE (AUTOMATED) (10/28/2019 6:00 AM CDT) Pathologist Sig nature POCT GLU 109 70 - 110 mg/dL [facility] Specimen Blood Performing Organization Address [facility] Phone Number [facility] CLIA: [id number], [address] [place] [address] [employer] POCT GLUCOSE (AUTOMATED) (10/27/2019 11:52 PM CDT) Pathologist Sig nature POCT GLU 120 (H) 70 - 110 mg/dL [facility] Specimen Blood Performing Organization Address [facility] Phone Number [facility] CLIA: [id number], [address] [place] [address] [address] [employer] POCT GLUCOSE (AUTOMATED) (10/27/2019 5:47 PM CDT) Pathologist Sig nature POCT GLU 128 (H) 70 - 110 mg/dL [facility] Specimen Blood Performing Organization Address [facility] Phone Number [facility] CLIA: [id number], [address] [place] [address] [address] [employer] POCT GLUCOSE (AUTOMATED) (10/27/2019 12:16 PM CDT) Pathologist Sig nature POCT GLU 127 (H) 70 - 110 mg/dL [facility] Specimen Blood Performing Organization Address City/State/Zipcode Phone Number [facility] CLIA: [id number], [address] [place], [place] [address] [facility] POCT GLUCOSE (AUTOMATED) (10/27/2019 6:07 AM CDT) Pathologist Sig [facility] POCT GLU 107 70 - 110 mg/dL [facility] Specimen Blood Performing Organization Address City/[facility]/Zipcode Phone Number [facility] CLIA: [id number], [address] [place] [address] 77 [facility] CBC WITH DIFFERENTIAL (10/27/2019 4:30 AM CDT) Pathologist Sig [facility] WBC 7.03 4.30 - 11.10 [facility] 10*3/L SERVICES RBC 3.87 (L) 3.93 - 5.25 [facility] 10*6/L SERVICES HGB 9.3 (L) 11.6 - 15.0 [facility] g/dL SERVICES HCT 34.4 (L) 35.7 - 45.2 % [facility] MCV 88.9 80.6 - 95.5 fL [facility] MCH 24.0 (L) 25.9 - 32.8 pg [facility] MCHC 27.0 (L) 31.6 - 35.1 [facility] g/dL SERVICES RDW-SD 86.0 (H) 39.0 - 49.9 fL [facility] RDW-CV 27.1 (H) 12.0 - 15.5 % [facility] PLT 345 166 - 358 [facility] 10*3/L SERVICES MPV 10.4 9.5 - 12.9 fL [facility] NRBC/100 WBC 0.0 0.0 - 10.0 /100 [facility] WBCs SERVICES NRBC x10^3 <0.01 10*3/L [facility] GRAN MAT (NEUT) % 70.4 % [facility] IMM GRAN % 0.30 % [facility] LYMPH % 14.4 % [facility] MONO % 11.2 % [facility] EOS % 3.4 % [facility] BASO % 0.3 % [facility] GRAN MAT x10^3(ANC) 4.95 1.88 - 7.09 [facility] 10*3/uL SERVICES IMM GRAN x10^3 <0.03 0.00 - 0.06 [facility] 10*3/uL SERVICES LYMPH x10^3 1.01 (L) 1.32 - 3.29 [facility] 10*3/uL SERVICES MONO x10^3 0.79 0.33 - 0.92 [facility] 10*3/uL SERVICES EOS x10^3 0.24 0.03 - 0.39 [facility] 10*3/uL SERVICES BASO x10^3 <0.03 0.01 - 0.07 [facility] 10*3/uL SERVICES ELLIPTO/OVAL 2+ (A) (none) [facility] POLYCHROMASIA 2+ 2+ [facility] Specimen Blood - ARM, LEFT Performing Organization Address City/[facility]/Zipcode Phone Number [facility] CLIA: [id number], [address] [place] [address] 555 [facility] MAGNESIUM (10/27/2019 4:30 AM CDT) Pathologist Sig nature MAGNESIUM 1.8 1.7 - 2.4 mg/dL [facility] Specimen Blood - ARM, LEFT Performing Organization Address [facility] Phone Number [facility] CLIA: [id number], [address] [place] [address] 555 [facility] BASIC METABOLIC PANEL (NA, K, CL, CO2, GLUCOSE, BUN, CREATININE, CA) (10/27/2019 4:30 AM CDT) NA 137 135 - 145 [facility] mmol/L SERVICES K 3.8 3.5 - 5.0 [facility] mmol/L SERVICES CL 91 (L) 98 - 108 mmol/L [facility] CO2 TOTAL 39 (H) 23 - 31 mmol/L [facility] AGAP 7 2 - 16 [facility] BUN 15 7 - 23 mg/dL [facility] GLUCOSE 115 (H) 70 - 110 mg/dL [facility] CREATININE 0.42 (L) 0.50 - 1.04 [facility] mg/dL SERVICES CALCIUM 8.7 8.6 - 10.6 [facility] mg/dL SERVICES eGFR Calculation 166.3 mL/min/1.73m2 [facility] (Non- SERVICES Swedish) eGFR Calculation 201.5 mL/min/1.73m2 [facility] () SERVICES Specimen Blood - ARM, LEFT Narrative Performed At Association of Glomerular Filtration Rate (GFR) and St aging [facility] of Kidney Disease* + + +------- ------ + | GFR (mL/min/1.73 m2) | With Kidney Damage | Wi thout Kidney Damage + + +------- ------ + | >90 | Stage one | Normal + + +------- ------ + | 60-89 | Stage two | Decreased GFR + + +------- ------ + | 30-59 | Stage three | Stage three + + +------- ------ + | 15-29 | Stage four | Stage four + + +------- ------ + | <15 (or dialysis) | Stage five | Stage five + + +------- ------ + *Each stage assumes the associated GFR level has been in effect for at least three months. Stages 1 to 5, wit h or without kidney disease, indicate chronic kidney disease. Notes: Determination of stages one and two (with eGFR >59mL/min/1.73 m2) requires estimation of kidney damag e for at least three months as defined by structural or func tional abnormalities of the kidney, manifested by either: Pathological abnormalities or Markers of kidney damage (including abnormalities in the composition of the blo od or urine or abnormalities in imaging tests) . Performing Organization Address City/[facility] Phone Number [facility] CLIA: [id number], [address] [place] [address] 555 [facility] POCT GLUCOSE (AUTOMATED) (10/26/2019 11:59 PM CDT) Pathologist Sig nature POCT GLU 128 (H) 70 - 110 mg/dL [facility] Specimen Blood Performing Organization Address City/[facility]/Zipcode Phone Number [facility] CLIA: [id number], [address] [place] [address] [facility] POCT GLUCOSE (AUTOMATED) (10/26/2019 6:02 PM CDT) Pathologist Sig nature POCT GLU 154 (H) 70 - 110 mg/dL [facility] Specimen Blood Performing Organization Address City/[facility]/Zipcode Phone Number [facility] CLIA: [id number], [address] [place], [place] [address] [facility] POCT GLUCOSE (AUTOMATED) (10/26/2019 12:38 PM CDT) Pathologist Sig nature POCT GLU 135 (H) 70 - 110 mg/dL [facility] Specimen Blood Performing Organization Address City/[facility]/Zipcode Phone Number [facility] CLIA: [id number], [address] [place] [address] [facility] CBC WITH DIFFERENTIAL (10/26/2019 6:04 AM CDT) Pathologist Sig nature WBC 6.43 4.30 - 11.10 [facility] 10*3/L SERVICES RBC 4.06 3.93 - 5.25 [facility] 10*6/L SERVICES HGB 9.7 (L) 11.6 - 15.0 [facility] g/dL SERVICES HCT 36.0 35.7 - 45.2 % [facility] MCV 88.7 80.6 - 95.5 fL [facility] MCH 23.9 (L) 25.9 - 32.8 pg [facility] MCHC 26.9 (L) 31.6 - 35.1 [facility] g/dL SERVICES RDW-SD 87.6 (H) 39.0 - 49.9 fL [facility] RDW-CV 27.6 (H) 12.0 - 15.5 % [facility] PLT 367 (H) 166 - 358 [facility] 10*3/L SERVICES MPV 10.8 9.5 - 12.9 fL [facility] NRBC/100 WBC 0.0 0.0 - 10.0 /100 [facility] WBCs SERVICES NRBC x10^3 <0.01 10*3/L [facility] GRAN MAT (NEUT) % 68.3 % [facility] IMM GRAN % 0.30 % [facility] LYMPH % 18.0 % [facility] MONO % 10.6 % [facility] EOS % 2.8 % [facility] BASO % 0.0 % [facility] GRAN MAT x10^3(ANC) 4.39 1.88 - 7.09 [facility] 10*3/uL SERVICES IMM GRAN x10^3 <0.03 0.00 - 0.06 [facility] 10*3/uL SERVICES LYMPH x10^3 1.16 (L) 1.32 - 3.29 [facility] 10*3/uL SERVICES MONO x10^3 0.68 0.33 - 0.92 [facility] 10*3/uL SERVICES EOS x10^3 0.18 0.03 - 0.39 [facility] 10*3/uL SERVICES BASO x10^3 <0.03 0.01 - 0.07 [facility] 10*3/uL SERVICES ELLIPTO/OVAL 2+ (A) (none) [facility] POLYCHROMASIA 3+ (A) 2+ [facility] SCHISTOCYTES 2+ (A) [facility] Specimen Blood - ARM, RIGHT Performing Organization Address City/[facility]/Zipcode Phone Number [facility] CLIA: [id number], [address] [place] [address] 555 [facility] MAGNESIUM (10/26/2019 6:04 AM CDT) Pathologist Sig nature MAGNESIUM 1.8 1.7 - 2.4 mg/dL [facility] Specimen Blood - ARM, RIGHT Performing Organization Address City/[facility]/Zipcode Phone Number [facility] CLIA: [id number], [address] [place] [address] 555 [facility] BASIC METABOLIC PANEL (NA, K, CL, CO2, GLUCOSE, BUN, CREATININE, CA) (10/26/2019 6:04 AM CDT) NA 136 135 - 145 [facility] mmol/L SERVICES K 3.4 (L) 3.5 - 5.0 [facility] mmol/L SERVICES CL 91 (L) 98 - 108 mmol/L [facility] CO2 TOTAL 40 (H) 23 - 31 mmol/L [facility] AGAP 5 2 - 16 [facility] BUN 16 7 - 23 mg/dL [facility] GLUCOSE 123 (H) 70 - 110 mg/dL [facility] CREATININE 0.46 (L) 0.50 - 1.04 [facility] mg/dL SERVICES CALCIUM 9.1 8.6 - 10.6 [facility] mg/dL SERVICES eGFR Calculation 149.7 mL/min/1.73m2 [facility] (Non- SERVICES Swedish) eGFR Calculation 181.4 mL/min/1.73m2 [facility] () SERVICES Specimen Blood - ARM, RIGHT Narrative Performed At Association of Glomerular Filtration Rate (GFR) and St aging [facility] of Kidney Disease* + + +------- ------ + | GFR (mL/min/1.73 m2) | With Kidney Damage | Wi thout Kidney Damage + + +------- ------ + | >90 | Stage one | Normal + + +------- ------ + | 60-89 | Stage two | Decreased GFR + + +------- ------ + | 30-59 | Stage three | Stage three + + +------- ------ + | 15-29 | Stage four | Stage four + + +------- ------ + | <15 (or dialysis) | Stage five | Stage five + + +------- ------ + *Each stage assumes the associated GFR level has been in effect for at least three months. Stages 1 to 5, wit h or without kidney disease, indicate chronic kidney disease. Notes: Determination of stages one and two (with eGFR >59mL/min/1.73 m2) requires estimation of kidney damag e for at least three months as defined by structural or func tional abnormalities of the kidney, manifested by either: Pathological abnormalities or Markers of kidney damage (including abnormalities in the composition of the blo od or urine or abnormalities in imaging tests) . Performing Organization Address City/[facility] Phone Number [facility] CLIA: [id number], [address] [place] [address] 555 [facility] POCT GLUCOSE (AUTOMATED) (10/26/2019 6:03 AM CDT) [facility] POCT GLU 119 (H) 70 - 110 mg/dL [facility] Specimen Blood Performing Organization Address [facility]/Zipcode Phone Number [facility] CLIA: [id number], [address] [place], [place] [id number] [facility] POCT GLUCOSE (AUTOMATED) (10/26/2019 12:51 AM CDT) [facility] POCT GLU 113 (H) 70 - 110 mg/dL [facility] Specimen Blood Performing Organization Address [facility] Phone Number [facility] CLIA: [id number], [address] [place], [place] [id number] [facility] POCT GLUCOSE (AUTOMATED) (10/25/2019 7:47 PM CDT) Pathologist Sig nature POCT GLU 131 (H) 70 - 110 mg/dL [facility] Specimen Blood Performing Organization Address City/[facility] Phone Number [facility] CLIA: [id number], [address] [place] [address] [facility] POCT GLUCOSE (AUTOMATED) (10/25/2019 12:55 PM CDT) Pathologist Sig nature POCT GLU 129 (H) 70 - 110 mg/dL [facility] Specimen Blood Performing Organization Address [facility] Phone Number [facility] CLIA: [id number], [address] [place] [address] [facility] POCT GLUCOSE (AUTOMATED) (10/25/2019 5:59 AM CDT) Pathologist Sig nature POCT GLU 117 (H) 70 - 110 mg/dL [facility] Specimen Blood Performing Organization Address [facility] Phone Number [facility] CLIA: [id number], [address] [place] [address] [facility] ANTI-NUCLEAR ANTIBODY TITER (10/25/2019 4:54 AM CDT) Pathologist Sig nature AUGUSTO Titer by IFA <1:80 [facility] LABORATORY SERVICES Specimen Blood - HAND, RIGHT Narrative Performed At Anti-nuclear antibodies are seen in a variety of autoi mmune [facility] diseases and may also be seen in low titers in otherwi se normal individuals without evidence of autoimmune dise ase. In general, a titer greater than or equal to 1:160 is considered significant. For further information, regino ct the appropriate Specialist. For additional AUGUSTO tests, refe r to the Laboratory Test Directory. The specimen will be he ld for 7 days. Performing Organization Address City/[facility] Phone Number [facility] CLIA: [id number], [address] [place] [phone] [facility] ANTI-SCL-70 (10/25/2019 4:54 AM CDT) Pathologist Sig nature ANTI-[id number] Negative Negative [facility] Specimen Blood - HAND, RIGHT Narrative Performed At Positive - Antibody detected. [facility] Negative - No antibody detected. Performing Organization Address City/State/Zipcode Phone Number [facility] CLIA: [id number], [address] [place] [phone] [facility] ANTI-NUCLEAR ANTIBODY SCREEN (10/25/2019 4:54 AM CDT) Pathologist Sig nature AUGUSTO Positive (A) Negative [facility] Specimen Blood - HAND, RIGHT Narrative Performed At Negative - No Anti-Nuclear Antibodies de tected by IFA. [facility] Positive - AUGUSTO IFA screen performed with a 1:80 diluti on in adults and a 1:40 dilution in pediatrics. Any AUGUSTO "Pos itive" will have titer performed and reported separately. Performing Organization Address City/State/Zipcode Phone Number [facility] CLIA: [id number], [address] [place] [address] [phone] [facility] CBC WITH DIFFERENTIAL (10/25/2019 4:54 AM CDT) Pathologist Sig nature WBC 7.18 4.30 - 11.10 [facility] 10*3/L SERVICES RBC 4.23 3.93 - 5.25 [facility] 10*6/L SERVICES HGB 9.8 (L) 11.6 - 15.0 [facility] g/dL SERVICES HCT 36.6 35.7 - 45.2 % [facility] MCV 86.5 80.6 - 95.5 fL [facility] MCH 23.2 (L) 25.9 - 32.8 pg [facility] MCHC 26.8 (L) 31.6 - 35.1 [facility] g/dL SERVICES RDW-SD 87.2 (H) 39.0 - 49.9 fL [facility] RDW-CV 28.2 (H) 12.0 - 15.5 % [facility] PLT 339 166 - 358 [facility] 10*3/L SERVICES MPV 9.6 9.5 - 12.9 fL [facility] NRBC/100 WBC 0.0 0.0 - 10.0 /100 [facility] WBCs SERVICES NRBC x10^3 <0.01 10*3/L [facility] GRAN MAT (NEUT) % 72.7 % [facility] IMM GRAN % 0.30 % [facility] LYMPH % 16.3 % [facility] MONO % 9.6 % [facility] EOS % 1.0 % [facility] BASO % 0.1 % [facility] GRAN MAT x10^3(ANC) 5.22 1.88 - 7.09 [facility] 10*3/uL SERVICES IMM GRAN x10^3 <0.03 0.00 - 0.06 [facility] 10*3/uL SERVICES LYMPH x10^3 1.17 (L) 1.32 - 3.29 [facility] 10*3/uL SERVICES MONO x10^3 0.69 0.33 - 0.92 [facility] 10*3/uL SERVICES EOS x10^3 0.07 0.03 - 0.39 [facility] 10*3/uL SERVICES BASO x10^3 <0.03 0.01 - 0.07 [facility] 10*3/uL SERVICES ELLIPTO/OVAL 2+ (A) (none) [facility] Specimen Blood - HAND, RIGHT Performing Organization Address City/State/Zipcode Phone Number [facility] CLIA: [id number], [address] [place] [phone] [facility] N-TERMINAL PRO-BNP (10/25/2019 4:54 AM CDT) Pathologist Sig nature NT-proBNP 1,970 (H) <=125 pg/mL [facility] Specimen Blood - HAND, RIGHT Narrative Performed At Biotin has been reported to cause a negative bias, int erpret [facility] results relative to patient's use of biotin. Performing Organization Address City/State/Zipcode Phone Number [facility] CLIA: [id number], [address] [place] [address] [phone] [facility] PROCALCITONIN (10/25/2019 4:54 AM CDT) Pathologist Sig nature Procalcitonin 0.09 (H) <0.07 ng/mL [facility] Specimen Blood - HAND, RIGHT Narrative Performed At INTERPRETATION OF PROCALCITONIN RESULTS IN ADULTS >= 1 8 [facility] YEARS OF AGE Initiation and discontinuation of antibiotics on patie nts with suspected or confirmed Lower Respiratory Tract Infection in Adults >= 18 years of age. + + + +----- ------ + |Procalcitonin |Interpretation |Antibiotic |Considerations |ng/mL | |recommend ation | + + + +----- ------ + | <0.1 | Bacterial | Strongly | | | infection very | discouraged | Overruling: | | unlikely | | Clinically unstable + + + + H igh risk for adverse | <0.25 | Bacterial | Discouraged | outcome | | infection | | SEE IMPORTANT NOTE | | unlikely | | + + + +----- ------ + | >=0.25 | Bacterial | Encouraged | | | infection | | | | likely | | Consider treatment failure + + + + if l robbels does not decrease | >0.5 | Bacterial | Strongly | appropriately | | infection very | encouraged | | | likely | | + + + +----- ------ + Discontinuation of antibiotics in high-acuity patients with suspected or confirmed sepsis in Adults >= 18 years of age. + + + +----- ------ + |Procalcitonin |Interpretation |Antibiotic |Considerations |ng/mL | |recommend ation | + + + +----- ------ + | <0.25 | Bacterial | Strongly | | | infection very | discouraged | Overruling: | | unlikely | | Clinically unstable + + + + H igh risk for adverse | <0.5 or drop | Bacterial | Discouraged | outcome | >80% from | infection | | SEE IMPORTANT NOTE | highest PCT | unlikely | | | level | | | + + + +----- ------ + | >=0.5 | Bacterial | Encouraged | | | infection | | | | likely | | Consider treatment failure + + + + if l evels does not decrease | >1.0 | Bacterial | Strongly | appropriately | | infection very | encouraged | | | likely | | + + + +----- ------ + Percentage of drop of Procalcitonin calculation for Discontinuation of antibiotics in high-acuity patients with suspected or confirmed sepsis in Adults >= 18 years of age. Procalcitonin highest{}-Procalcitonin current{} Delta Procalcitonin = x100% Procalcitonin current {} IMPORTANT NOTE: Procalcitonin may be elevated without bacterial infection by physiologic stress related to t rauma, hunt, chronic dialysis, metastatic cancer, surgery in the past seven days, malaria, some fungal infections, and some forms of vasculitis. The interpretation algorithm may not apply to patients with immunosuppression (equivalent o f >10 mg of prednisone daily), HIV with CD4 cell count < 350 cells/mm3, active malignancy on systemic chemotherapy, solid organ transplant or hematopoietic stem cell transplant ation, or hospital acquired pneumonia. Additionally, some cli nical trials of procalcitonin have excluded patients with sh ock requiring vasopressor use, acute respiratory failure requiring mechanical ventilation, or those with known lung abscess/empyema. For further information please refer to: [email or web address] Performing Organization Address City/State/Zipcode Phone Number [facility] CLIA: [id number], [address] [place], [place] [address] [facility] BASIC METABOLIC PANEL (NA, K, CL, CO2, GLUCOSE, BUN, CREATININE, CA) (10/25/2019 4:54 AM CDT) NA 138 135 - 145 [facility] mmol/L SERVICES K 3.8 3.5 - 5.0 [facility] mmol/L SERVICES CL 93 (L) 98 - 108 mmol/L [facility] CO2 TOTAL 38 (H) 23 - 31 mmol/L [facility] AGAP 7 2 - 16 [facility] BUN 15 7 - 23 mg/dL [facility] GLUCOSE 118 (H) 70 - 110 mg/dL [facility] CREATININE 0.45 (L) 0.50 - 1.04 [facility] mg/dL SERVICES CALCIUM 9.4 8.6 - 10.6 [facility] mg/dL SERVICES eGFR Calculation 153.5 mL/min/1.73m2 [facility] (Non- SERVICES Swedish) eGFR Calculation 186.1 mL/min/1.73m2 [facility] () SERVICES Specimen Blood - HAND, RIGHT Narrative Performed At Association of Glomerular Filtration Rate (GFR) and St aging [facility] of Kidney Disease* + + +------- ------ + | GFR (mL/min/1.73 m2) | With Kidney Damage | Wi thout Kidney Damage + + +------- ------ + | >90 | Stage one | Normal + + +------- ------ + | 60-89 | Stage two | Decreased GFR + + +------- ------ + | 30-59 | Stage three | Stage three + + +------- ------ + | 15-29 | Stage four | Stage four + + +------- ------ + | <15 (or dialysis) | Stage five | Stage five + + +------- ------ + *Each stage assumes the associated GFR level has been in effect for at least three months. Stages 1 to 5, wit h or without kidney disease, indicate chronic kidney disease. Notes: Determination of stages one and two (with eGFR >59mL/min/1.73 m2) requires estimation of kidney damag e for at least three months as defined by structural or func tional abnormalities of the kidney, manifested by either: Pathological abnormalities or Markers of kidney damage (including abnormalities in the composition of the blo od or urine or abnormalities in imaging tests) . Performing Organization Address City/State/Zipcode Phone Number [facility] CLIA: [id number], [address] [place], [place] [address] POCT GLUCOSE (AUTOMATED) (10/25/2019 12:24 AM CDT) Pathologist Sig nature POCT GLU 119 (H) 70 - 110 mg/dL [facility] Specimen Blood Performing Organization Address City/[facility]/Zipcode Phone Number [facility] CLIA: [id number], [address] [place], [place] [address] [facility] POCT GLUCOSE (AUTOMATED) (10/24/2019 6:43 PM CDT) Pathologist Sig nature POCT GLU 111 (H) 70 - 110 mg/dL [facility] Specimen Blood Performing Organization Address City/[facility]/Zipcode Phone Number [facility] CLIA: [id number], [address] [place] [address] [facility] XR CHEST 1 VW (10/24/2019 6:39 PM CDT) Specimen Impressions Performed At Findings and Impression: Patient rotation exaggerate s PACS/VR/DOSE cardiomediastinal silhouette. Heart remains markedly enlar ged. There is persistent interstitial abnormality consistent with edema. Tracheostomy appliance projects over the upper left chest (not over the midli ne-probably related to patient rotation). Central airways ar e not well seen. Recommend repeating the radiograph into AP to bett er characterize position of the tracheostomy appliance. No acute osseous abnormality. Widening of the acromiohumeral interval on the right, similar prior. D ictating tube courses along the midline into the left upper qu adrant and out of [id number]. Narrative Performed At PORTABLE CHEST RADIOGRAPH PACS/VR/DOSE History: hypoxia Comparison: 10/17/2019 TECHNIQUE: AP view of the chest. Procedure Note [facility], Radiant Results Inft User - 2019 7:43 PM CDT PORTABLE CHEST RADIOGRAPH History: hypoxia Comparison: 10/17/2019 TECHNIQUE: AP view of the chest. IMPRESSION Findings and Impression: Patient rotati on exaggerates cardiomediastinal silhouette. Heart remains markedly enlar ged. There is persistent interstitial abnormality consistent with edema. Tracheostomy appliance projects over the upper left chest (not over the midline-probably related to patient rotation). Central airways ar e not well seen. Recommend repeating the radiograph into AP to bett er characterize position of the tracheostomy appliance. No acute osseous abnormality. Widening of the acromiohumeral interval on the right, si milar prior. Dictating tube courses along the midline into the left upper qu adrant and out of [id number]. Performing Organization Address City/[facility]/Zipcode Phone Number PACS/VR/DOSE AC PANEL 20 + LACTIC ACID (10/24/2019 5:36 PM CDT) Pathologist Sig nature PH 7.44 7.35 - 7.45 [facility] PCO2 57 (H) 35 - 45 mmHg [facility] PO2 53 (L) 80 - 100 mmHg [facility] HCO3 37 (H) 22 - 26 mEq/L [facility] BE 11.4 (H) -3.0 - 3.0 mEq/L [facility] THB 10.8 (L) 12.0 - 16.0 g/dL [facility] %O2HB 84.4 (L) 94.0 - 99.0 % [facility] %COHB ART 0.4 0.0 - 1.5 % [facility] %METHB ART 0.3 (L) 0.4 - 1.5 % [facility] VOL%O2 ART 12.8 (L) 15.0 - 23.0 % [facility] NA 139 135 - 145 mmol/L [facility] K+ 3.5 3.5 - 5.0 mmol/L [facility] AC CA IONZ 4.70 4.50 - 5.30 mg/dL [facility] GLUCOSE 128 (H) 70 - 110 mg/dL [facility] LACTIC ACID 1.37 0.50 - 2.20 mmol/L [facility] Specimen Blood - ARTERIAL Performing Organization Address City/[facility]/Zipcode Phone Number [facility] CLIA: [id number], [address] [place] [address] [facility] POCT GLUCOSE (AUTOMATED) (10/24/2019 12:01 PM CDT) Pathologist Sig nature POCT GLU 145 (H) 70 - 110 mg/dL [facility] Specimen Blood Performing Organization Address City/[facility]/Zipcode Phone Number [facility] CLIA: [id number], [address] [place] [address] [place] POCT GLUCOSE (AUTOMATED) (10/24/2019 6:00 AM CDT) Pathologist Sig nature POCT GLU 134 (H) 70 - 110 mg/dL [facility] Specimen Blood Performing Organization Address City/[facility] Phone Number [facility] CLIA: [id number], [address] [place] [address] [place] POCT GLUCOSE (AUTOMATED) (10/24/2019 12:10 AM CDT) Pathologist Sig nature POCT GLU 102 70 - 110 mg/dL [facility] Specimen Blood Performing Organization Address [facility] Phone Number [facility] CLIA: [id number], [address] [place] [address] [facility] POCT GLUCOSE (AUTOMATED) (10/23/2019 4:48 PM CDT) Pathologist Sig nature POCT GLU 130 (H) 70 - 110 mg/dL [facility] Specimen Blood Performing Organization Address [facility] Phone Number [facility] CLIA: [id number], [address] [place] [address] [facility] POCT GLUCOSE (AUTOMATED) (10/23/2019 12:05 PM CDT) Pathologist Sig nature POCT GLU 124 (H) 70 - 110 mg/dL [facility] Specimen Blood Performing Organization Address [facility] Phone Number [facility] CLIA: [id number], [address] [place] [address] [facility] MAGNESIUM (10/23/2019 5:18 AM CDT) Pathologist Sig nature MAGNESIUM 1.7 1.7 - 2.4 mg/dL [facility] Specimen Blood - VENOUS Performing Organization Address City/[facility] Phone Number [facility] CLIA: [id number], [address] [place] [phone] [facility] BASIC METABOLIC PANEL (NA, K, CL, CO2, GLUCOSE, BUN, CREATININE, CA) (10/23/2019 5:18 AM CDT) NA 134 (L) 135 - 145 [facility] mmol/L SERVICES K 4.1Comment: 3.5 - 5.0 [facility] Slight hemolysis mmol/L SERVICES CL 94 (L) 98 - 108 [facility] mmol/L SERVICES CO2 TOTAL 38 (H) 23 - 31 [facility] mmol/L SERVICES AGAP 2 2 - 16 [facility] BUN 14Comment: Slight 7 - 23 mg/dL [facility] hemolysis SERVICES GLUCOSE 123 (H) 70 - 110 [facility] mg/dL SERVICES CREATININE 0.37 (L) 0.50 - 1.04 [facility] mg/dL SERVICES CALCIUM 8.8 8.6 - 10.6 [facility] mg/dL SERVICES eGFR Calculation 192.5 mL/min/1.73m2 [facility] (Non- SERVICES Swedish) eGFR Calculation 233.3 mL/min/1.73m2 [facility] () SERVICES Specimen Blood - VENOUS Narrative Performed At Association of Glomerular Filtration Rate (GFR) and St aging [facility] of Kidney Disease* + + +------- ------ + | GFR (mL/min/1.73 m2) | With Kidney Damage | Wi thout Kidney Damage + + +------- ------ + | >90 | Stage one | Normal + + +------- ------ + | 60-89 | Stage two | Decreased GFR + + +------- ------ + | 30-59 | Stage three | Stage three + + +------- ------ + | 15-29 | Stage four | Stage four + + +------- ------ + | <15 (or dialysis) | Stage five | Stage five + + +------- ------ + *Each stage assumes the associated GFR level has been in effect for at least three months. Stages 1 to 5, wit h or without kidney disease, indicate chronic kidney disease. Notes: Determination of stages one and two (with eGFR >59mL/min/1.73 m2) requires estimation of kidney damag e for at least three months as defined by structural or func tional abnormalities of the kidney, manifested by either: Pathological abnormalities or Markers of kidney damage (including abnormalities in the composition of the blo od or urine or abnormalities in imaging tests) . Performing Organization Address City/State/Zipcode Phone Number [facility] CLIA: [id number], [address] [place], [place] [address] [facility] POCT GLUCOSE (AUTOMATED) (10/23/2019 1:17 AM CDT) Pathologist Sig nature POCT GLU 119 (H) 70 - 110 mg/dL [facility] Specimen Blood Performing Organization Address [facility] Phone Number [facility] CLIA: [id number], [address] [place] [address] [address] [place] POCT GLUCOSE (AUTOMATED) (10/22/2019 6:06 PM CDT) Pathologist Sig nature POCT GLU 115 (H) 70 - 110 mg/dL [facility] Specimen Blood Performing Organization Address [facility] Phone Number [facility] CLIA: [id number], [address] [place] [address] [facility] POCT GLUCOSE (AUTOMATED) (10/22/2019 12:06 PM CDT) Pathologist Sig nature POCT GLU 132 (H) 70 - 110 mg/dL [facility] Specimen Blood Performing Organization Address [facility] Phone Number [facility] CLIA: [id number], [address] [place] [address] [facility] POCT GLUCOSE (AUTOMATED) (10/22/2019 5:56 AM CDT) Pathologist Sig nature POCT GLU 114 (H) 70 - 110 mg/dL [facility] Specimen Blood Performing Organization Address [facility] Phone Number [facility] CLIA: [id number], [address] [place] [address] [facility] POCT GLUCOSE (AUTOMATED) (10/22/2019 12:33 AM CDT) Pathologist Sig nature POCT GLU 127 (H) 70 - 110 mg/dL [facility] Specimen Blood Performing Organization Address [facility] Phone Number [facility] CLIA: [id number], [address] [place] [address] [facility] POCT GLUCOSE (AUTOMATED) (10/21/2019 5:51 PM CDT) Pathologist Sig nature POCT GLU 135 (H) 70 - 110 mg/dL [facility] Specimen Blood Performing Organization Address City/[facility]/Zipcode Phone Number [facility] CLIA: [id number], [address] [place] [address] [facility] POCT GLUCOSE (AUTOMATED) (10/21/2019 11:36 AM CDT) Pathologist Sig nature POCT GLU 141 (H) 70 - 110 mg/dL [facility] Specimen Blood Performing Organization Address City/[facility]/Zipcode Phone Number [facility] CLIA: [id number], [address] [place] [address] [facility] MAGNESIUM (10/21/2019 5:30 AM CDT) Pathologist Sig nature MAGNESIUM 2.1 1.7 - 2.4 mg/dL [facility] Specimen Blood - VENOUS Performing Organization Address City/[facility] Phone Number [facility] CLIA: [id number], [address] [place] [phone] [facility] BASIC METABOLIC PANEL (NA, K, CL, CO2, GLUCOSE, BUN, CREATININE, CA) (10/21/2019 5:30 AM CDT) NA 138 135 - 145 [facility] mmol/L SERVICES K 4.3 3.5 - 5.0 [facility] mmol/L SERVICES CL 100 98 - 108 mmol/L [facility] SERVICES CO2 TOTAL 36 (H) 23 - 31 mmol/L [facility] SERVICES AGAP 2 2 - 16 [facility] BUN 19 7 - 23 mg/dL [facility] SERVICES GLUCOSE 135 (H) 70 - 110 mg/dL [facility] SERVICES CREATININE 0.45 (L) 0.50 - 1.04 [facility] mg/dL SERVICES CALCIUM 8.9 8.6 - 10.6 [facility] mg/dL SERVICES eGFR Calculation 153.5 mL/min/1.73m2 [facility] (Non- SERVICES Swedish) eGFR Calculation 186.1 mL/min/1.73m2 [facility] () SERVICES Specimen Blood - VENOUS Narrative Performed At Association of Glomerular Filtration Rate (GFR) and St aging [facility] SERVICES of Kidney Disease* + + +------- ------ + | GFR (mL/min/1.73 m2) | With Kidney Damage | Wi thout Kidney Damage + + +------- ------ + | >90 | Stage one | Normal + + +------- ------ + | 60-89 | Stage two | Decreased GFR + + +------- ------ + | 30-59 | Stage three | Stage three + + +------- ------ + | 15-29 | Stage four | Stage four + + +------- ------ + | <15 (or dialysis) | Stage five | Stage five + + +------- ------ + *Each stage assumes the associated GFR level has been in effect for at least three months. Stages 1 to 5, wit h or without kidney disease, indicate chronic kidney disease. Notes: Determination of stages one and two (with eGFR >59mL/min/1.73 m2) requires estimation of kidney damag e for at least three months as defined by structural or func tional abnormalities of the kidney, manifested by either: Pathological abnormalities or Markers of kidney damage (including abnormalities in the composition of the blo od or urine or abnormalities in imaging tests) . Performing Organization Address City/[facility] Phone Number [facility] CLIA: [id number], [address] [place] [address] 555 [facility] POCT GLUCOSE (AUTOMATED) (10/20/2019 6:30 PM CDT) Pathologist Sig [facility] POCT GLU 118 (H) 70 - 110 mg/dL [facility] Specimen Blood Performing Organization Address [facility] Phone Number [facility] CLIA: [id number], [address] [place] [address] 7755 [facility] POCT GLUCOSE (AUTOMATED) (10/20/2019 11:29 AM CDT) Pathologist Sig Allani POCT GLU 152 (H) 70 - 110 mg/dL [facility] Specimen Blood Performing Organization Address [facility] Phone Number [facility] CLIA: [id number], [address] [place] [address] 7755 [facility] PROFILE / HEMOGRAM (10/20/2019 6:08 AM CDT) WBC 5.52 4.30 - 11.10 [facility] 10*3/L SERVICES RBC 3.72 (L) 3.93 - 5.25 [facility] 10*6/L SERVICES HGB 8.6 (L) 11.6 - 15.0 [facility] g/dL SERVICES HCT 32.5 (L) 35.7 - 45.2 % [facility] MCH 23.1 (L) 25.9 - 32.8 pg [facility] MCV 87.4 80.6 - 95.5 fL [facility] MCHC 26.5 (L) 31.6 - 35.1 [facility] g/dL SERVICES PLT 238 166 - 358 [facility] 10*3/L SERVICES MPV Comment: Not Measured [facility] RDW-CV 27.8 (H) 12.0 - 15.5 % [facility] RDW-SD 87.5 (H) 39.0 - 49.9 fL [facility] NRBC x10^3 <0.01 10*3/L [facility] NRBC/100 WBC 0.0 0.0 - 10.0 [facility] /100 WBCs SERVICES IPF % 4.1Comment: Platelet 1.3 - 7.7 % [facility] count measured by SERVICES fluorescence method. Specimen Blood - ARM, LEFT Performing Organization Address City/State/Zipcode Phone Number [facility] CLIA: [id number], [address] [place] [address] 555 [facility] ABG+[id number] (10/20/2019 5:34 AM CDT) [facility] nature PH 7.49 (H) 7.35 - 7.45 [facility] PCO2 50 (H) 35 - 45 mmHg [facility] PO2 80 80 - 100 mmHg [facility] HCO3 38 (H) 22 - 26 mEq/L [facility] BE 13.2 (H) -3.0 - 3.0 mEq/L [facility] THB 3.2 (LL) 12.0 - 16.0 g/dL [facility] %O2HB 95.8 94.0 - 99.0 % [facility] %COHB ART 0.3 0.0 - 1.5 % [facility] %METHB ART 0.3 (L) 0.4 - 1.5 % [facility] VOL%O2 ART 4.5 (L) 15.0 - 23.0 % [facility] NA 137 135 - 145 mmol/L [facility] K+ 4.1 3.5 - 5.0 mmol/L [facility] AC CA IONZ 4.60 4.50 - 5.30 mg/dL [facility] S GLUCOSE 143 (H) 70 - 110 mg/dL [facility] Specimen Blood - WRIST, LEFT Performing Organization Address City/[facility] Phone Number [facility] CLIA: [id number], [address] [place] [address] [phone] [facility] POCT GLUCOSE (AUTOMATED) (10/20/2019 1:25 AM CDT) Pathologist Sig nature POCT GLU 123 (H) 70 - 110 mg/dL [facility] Specimen Blood Performing Organization Address [facility] Phone Number [facility] CLIA: [id number], [address] [place] [address] 7755 [facility] POCT GLUCOSE (AUTOMATED) (10/19/2019 6:43 PM CDT) Pathologist Sig nature POCT GLU 127 (H) 70 - 110 mg/dL [facility] Specimen Blood Performing Organization Address [facility] Phone Number [facility] CLIA: [id number], [address] [place] [address] 7755 [facility] POCT GLUCOSE (AUTOMATED) (10/19/2019 1:18 PM CDT) Pathologist Sig nature POCT GLU 143 (H) 70 - 110 mg/dL [facility] Specimen Blood Performing Organization Address [facility] Phone Number [facility] CLIA: [id number], [address] [place] [address] 7755 [facility] Abdominal 1 View - To confirm Dobhoff / Small-bore (non-styleted) enteral feeding tube placement. (10/19/2019 11:50 AM CDT) Specimen Impressions Performed At FINDINGS/IMPRESSION: PACS/VR/DOSE The Dobbhoff tube terminates below the d iaphragm in the distal stomach/first portion of the duodenum. The visualized bowel gas pattern is norm al. Bilateral basilar consolidative opacitie s, right greater than left. Cardiomegaly. Preliminary Report Dictated by Resident: Marjan Chappell MD., have reviewed this study and agree with the above report. Narrative Performed At EXAM: XR ABDOMEN 1 VW PACS/VR/DOSE HISTORY: dobhoff COMPARISON: X-ray 10/18/2019. Procedure Note [facility], Radiant Results Inft User - 2019 12:51 PM CDT EXAM: XR ABDOMEN 1 VW HISTORY: dobhoff COMPARISON: X-ray 10/18/2019. IMPRESSION FINDINGS/IMPRESSION: The Dobbhoff tube terminates below the d iaphragm in the distal stomach/first portion of the duodenum. The visualized bowel gas pattern is norm al. Bilateral basilar consolidative opacitie s, right greater than left. Cardiomegaly. Preliminary Report Dictated by Resident: Seferino Mayo I, Marjan Ly MD., have reviewed this study and agree with the above report. Performing Organization Address [facility] Phone Number PACS/VR/DOSE POCT GLUCOSE (AUTOMATED) (10/19/2019 12:57 AM CDT) Pathologist Sig nature POCT GLU 114 (H) 70 - 110 mg/dL [facility] Specimen Blood Performing Organization Address [facility] Phone Number [facility] CLIA: [id number], [address] [place] [address] [facility] POCT GLUCOSE (AUTOMATED) (10/18/2019 6:05 PM CDT) Pathologist Sig nature POCT GLU 128 (H) 70 - 110 mg/dL [facility] Specimen Blood Performing Organization Address [facility] Phone Number [facility] CLIA: [id number], [address] [place] [address] 7755 [facility] XR KUB (10/18/2019 5:37 PM CDT) Specimen Impressions Performed At Impression: PACS/VR/DOSE The NG tube tip and sidehole are in the stomach. Enlar ged liver. Narrative Performed At Exam: XR KUB PACS/VR/DOSE Clinical History: ngt Comparison: October 09, 2019 Findings: NG tube tip and the sidehole are in the stomach. The liver appears enlarged. The bowel gas pattern appears nonobstructive. Degenerative changes are seen in the spine. Procedure Note [facility], Radiant Results Inft User - 2019 11:20 PM CDT Exam: XR KUB Clinical History: ngt Comparison: October 09, 2019 Findings: NG tube tip and the sidehole are in the stomach. The liver appears enlarged. The bowel gas pattern appears nonobstructive. Degenerative changes are seen in the spine. IMPRESSION Impression: The NG tube tip and sidehole are in the stomach. Enlarged liver. Performing Organization Address City/[facility] Phone Number PACS/VR/DOSE POCT GLUCOSE (AUTOMATED) (10/18/2019 2:16 PM CDT) Pathologist Sig nature POCT GLU 140 (H) 70 - 110 mg/dL [facility] Specimen Blood Performing Organization Address City/[facility] Phone Number [facility] CLIA: [id number], [address] [place] [address] 7[address] [facility] MAGNESIUM (10/18/2019 8:00 AM CDT) Pathologist Sig nature MAGNESIUM 1.7 1.7 - 2.4 mg/dL [facility] Specimen Blood - ARM, LEFT Performing Organization Address [facility] Phone Number [facility] CLIA: [id number], [address] [place] [address] [phone] [facility] BASIC METABOLIC PANEL (NA, K, CL, CO2, GLUCOSE, BUN, CREATININE, CA) (10/18/2019 8:00 AM CDT) NA 144 135 - 145 [facility] mmol/L SERVICES K 3.2 (L) 3.5 - 5.0 [facility] mmol/L SERVICES CL 112 (H) 98 - 108 mmol/L [facility] CO2 TOTAL 31 23 - 31 mmol/L [facility] AGAP 1 (L) 2 - 16 [facility] BUN 21 7 - 23 mg/dL [facility] GLUCOSE 115 (H) 70 - 110 mg/dL [facility] CREATININE 0.33 (L) 0.50 - 1.04 [facility] mg/dL SERVICES CALCIUM 6.8 (L) 8.6 - 10.6 [facility] mg/dL SERVICES eGFR Calculation 219.6 mL/min/1.73m2 [facility] (Non- SERVICES Swedish) eGFR Calculation 266.2 mL/min/1.73m2 [facility] () SERVICES Specimen Blood - ARM, LEFT Narrative Performed At Association of Glomerular Filtration Rate (GFR) and St aging [facility] of Kidney Disease* + + +------- ------ + | GFR (mL/min/1.73 m2) | With Kidney Damage | Wi thout Kidney Damage + + +------- ------ + | >90 | Stage one | Normal + + +------- ------ + | 60-89 | Stage two | Decreased GFR + + +------- ------ + | 30-59 | Stage three | Stage three + + +------- ------ + | 15-29 | Stage four | Stage four + + +------- ------ + | <15 (or dialysis) | Stage five | Stage five + + +------- ------ + *Each stage assumes the associated GFR level has been in effect for at least three months. Stages 1 to 5, wit h or without kidney disease, indicate chronic kidney disease. Notes: Determination of stages one and two (with eGFR >59mL/min/1.73 m2) requires estimation of kidney damag e for at least three months as defined by structural or func tional abnormalities of the kidney, manifested by either: Pathological abnormalities or Markers of kidney damage (including abnormalities in the composition of the blo od or urine or abnormalities in imaging tests) . Performing Organization Address City/State/Zipcode Phone Number [facility] CLIA: [id number], [address] [place] [phone] [facility] POCT GLUCOSE (AUTOMATED) (10/18/2019 7:30 AM CDT) Pathologist Sig nature POCT GLU 156 (H) 70 - 110 mg/dL [facility] Specimen Blood Performing Organization Address City/[facility]/Zipcode Phone Number [facility] CLIA: [id number], [address] [place], [place] [address] [place] PROFILE / HEMOGRAM (10/18/2019 5:37 AM CDT) WBC 5.49 4.30 - 11.10 [facility] 10*3/L SERVICES RBC 3.49 (L) 3.93 - 5.25 [facility] 10*6/L SERVICES HGB 8.1 (L) 11.6 - 15.0 [facility] g/dL SERVICES HCT 31.7 (L) 35.7 - 45.2 % [facility] MCH 23.2 (L) 25.9 - 32.8 pg [facility] MCV 90.8 80.6 - 95.5 fL [facility] MCHC 25.6 (L) 31.6 - 35.1 [facility] g/dL SERVICES PLT 248 166 - 358 [facility] 10*3/L SERVICES MPV Comment: Not Measured [facility] RDW-CV 32.9 (H) 12.0 - 15.5 % [facility] RDW-SD 102.3 (H) 39.0 - 49.9 fL [facility] NRBC x10^3 <0.01 10*3/L [facility] NRBC/100 WBC 0.0 0.0 - 10.0 [facility] /100 WBCs SERVICES IPF % 3.3Comment: Platelet 1.3 - 7.7 % [facility] count measured by SERVICES fluorescence method. Specimen Blood - ARM, LEFT Performing Organization Address City/[facility] Phone Number [facility] CLIA: [id number], [address] [place] [address] 555 [facility] POCT GLUCOSE (AUTOMATED) (10/18/2019 1:39 AM CDT) Pathologist Sig [facility] POCT GLU 166 (H) 70 - 110 mg/dL [facility] Specimen Blood Performing Organization Address City/[facility] Phone Number [facility] CLIA: [id number], [address] [place] [address] 7755 [facility] POCT GLUCOSE (AUTOMATED) (10/17/2019 6:14 PM CDT) Pathologist Sig Allani POCT GLU 150 (H) 70 - 110 mg/dL [facility] Specimen Blood Performing Organization Address City/[facility] Phone Number [facility] CLIA: [id number], [address] [place] [address] 7[address] [facility] POCT GLUCOSE (AUTOMATED) (10/17/2019 11:52 AM CDT) Pathologist Sig nature POCT GLU 158 (H) 70 - 110 mg/dL [facility] Specimen Blood Performing Organization Address City/State/Zipcode Phone Number [facility] CLIA: [id number], [address] [place], [place] 7[address] [facility] XR CHEST 1 VW (10/17/2019 8:16 AM CDT) Specimen Impressions Performed At FINDINGS/IMPRESSION: PACS/VR/DOSE A tracheostomy tube terminates 3.1 cm ab ove the nelson. The nasogastric tube terminates outside the field of vie w. The lungs are underexpanded and there is marked central vascular congestion. Mild interstitial edema is a lso noted. There is retrocardiac opacification which may be a combination of atelectasi s and pleural fluid however underexpansion the lungs and ove rlying soft tissue limits evaluation. Underlying infection is not excluded.. Saad ateral small pleural effusions are seen. No pneumothorax is s een. The heart is moderately enlarged. A left-sided 6th rib fracture is noted w ith osseous remodeling. Preliminary Report Dictated by Resident: Margaux Golden I, Jose Clements MD., have reviewed this study and agree with the above report. Narrative Performed At XR CHEST 1 VW PACS/VR/DOSE HISTORY: cough COMPARISON: X-ray dated 10/11/2019 Procedure Note [facility], Radiant Results Inft User - 2019 11:20 AM CDT XR CHEST 1 VW HISTORY: cough COMPARISON: X-ray dated 10/11/2019 IMPRESSION FINDINGS/IMPRESSION: A tracheostomy tube terminates 3.1 cm ab ove the nelson. The nasogastric tube terminates outside the field of vie w. The lungs are underexpanded and there is marked central vascular congestion. Mild interstitial edema is a lso noted. There is retrocardiac opacification which may be a combination of atelectasis and pleural fluid however underexpansion the lungs and ove rlying soft tissue limits evaluation. Underlying infection is not excluded.. Bilateral small pleural effusions are seen. No pneumothorax is s een. The heart is moderately enlarged. A left-sided 6th rib fracture is noted w ith osseous remodeling. Preliminary Report Dictated by Resident: Margaux Golden I, Jose Clements MD., have reviewed is study and agree with the above report. Performing Organization Address City/[facility]/Zipcode Phone Number PACS/VR/DOSE POCT GLUCOSE (AUTOMATED) (10/17/2019 5:12 AM CDT) Pathologist Sig nature POCT GLU 149 (H) 70 - 110 mg/dL [facility] Specimen Blood Performing Organization Address [facility] Phone Number [facility] CLIA: [id number], [address] [place] [address] [place] POCT GLUCOSE (AUTOMATED) (10/16/2019 11:52 PM CDT) Pathologist Sig nature POCT GLU 147 (H) 70 - 110 mg/dL [facility] Specimen Blood Performing Organization Address [facility] Phone Number [facility] CLIA: [id number], [address] [place] [address] [address] [employer] POCT GLUCOSE (AUTOMATED) (10/16/2019 1:57 PM CDT) Pathologist Sig nature POCT GLU 143 (H) 70 - 110 mg/dL [facility] Specimen Blood Performing Organization Address [facility] Phone Number [facility] CLIA: [id number], [address] [place] [address] [address] [employer] POCT GLUCOSE (AUTOMATED) (10/16/2019 6:08 AM CDT) Pathologist Sig nature POCT GLU 141 (H) 70 - 110 mg/dL [facility] Specimen Blood Performing Organization Address [facility] Phone Number [facility] CLIA: [id number], [address] [place] [address] [address] [employer] [place] POCT GLUCOSE (AUTOMATED) (10/16/2019 12:03 AM CDT) Pathologist Sig nature POCT GLU 144 (H) 70 - 110 mg/dL [facility] Specimen Blood Performing Organization Address [facility] Phone Number [facility] CLIA: [id number], [address] [place] [address] [facility] POCT GLUCOSE (AUTOMATED) (10/15/2019 4:26 PM CDT) Pathologist Sig nature POCT GLU 149 (H) 70 - 110 mg/dL [facility] Specimen Blood Performing Organization Address City/[facility] Phone Number [facility] CLIA: [id number], [address] [place] [address] 7[address] [facility] POCT GLUCOSE (AUTOMATED) (10/15/2019 11:57 AM CDT) Pathologist Sig nature POCT GLU 155 (H) 70 - 110 mg/dL [facility] Specimen Blood Performing Organization Address [facility] Phone Number [facility] CLIA: [id number], [address] [place] [address] [facility] MAGNESIUM (10/15/2019 5:26 AM CDT) Pathologist Sig nature MAGNESIUM 1.9 1.7 - 2.4 mg/dL [facility] Specimen Blood - ARTERIAL Performing Organization Address [facility] Phone Number [facility] CLIA: [id number], [address] [place] [address] [phone] [facility] BASIC METABOLIC PANEL (NA, K, CL, CO2, GLUCOSE, BUN, CREATININE, CA) (10/15/2019 5:26 AM CDT) Pathologist Sig nature NA 144 135 - 145 [facility] mmol/L SERVICES K 3.7 3.5 - 5.0 [facility] mmol/L SERVICES CL 105 98 - 108 mmol/L [facility] CO2 TOTAL 32 (H) 23 - 31 mmol/L [facility] AGAP 7 2 - 16 [facility] BUN 22 7 - 23 mg/dL [facility] GLUCOSE 160 (H) 70 - 110 mg/dL [facility] CREATININE 0.63 0.50 - 1.04 [facility] mg/dL SERVICES CALCIUM 8.9 8.6 - 10.6 [facility] mg/dL SERVICES eGFR Calculation 104.1 mL/min/1.73m2 [facility] (Non- SERVICES Swedish) eGFR Calculation 126.2 mL/min/1.73m2 [facility] () SERVICES Specimen Blood - ARTERIAL Narrative Performed At Association of Glomerular Filtration Rate (GFR) and St aging [facility] of Kidney Disease* + + +------- ------ + | GFR (mL/min/1.73 m2) | With Kidney Damage | Wi thout Kidney Damage + + +------- ------ + | >90 | Stage one | Normal + + +------- ------ + | 60-89 | Stage two | Decreased GFR + + +------- ------ + | 30-59 | Stage three | Stage three + + +------- ------ + | 15-29 | Stage four | Stage four + + +------- ------ + | <15 (or dialysis) | Stage five | Stage five + + +------- ------ + *Each stage assumes the associated GFR level has been in effect for at least three months. Stages 1 to 5, wit h or without kidney disease, indicate chronic kidney disease. Notes: Determination of stages one and two (with eGFR >59mL/min/1.73 m2) requires estimation of kidney damag e for at least three months as defined by structural or func tional abnormalities of the kidney, manifested by either: Pathological abnormalities or Markers of kidney damage (including abnormalities in the composition of the blo od or urine or abnormalities in imaging tests) . Performing Organization Address City/[facility] Phone Number [facility] CLIA: [id number], [address] [place] [address] 555 [facility] POCT GLUCOSE (AUTOMATED) (10/15/2019 5:13 AM CDT) Pathologist [facility] POCT GLU 140 (H) 70 - 110 mg/dL [facility] Specimen Blood Performing Organization Address [facility] Phone Number [facility] CLIA: [id number], [address] [place] [address] [facility] POCT GLUCOSE (AUTOMATED) (10/14/2019 11:39 PM CDT) Pathologist Sig Allani POCT GLU 148 (H) 70 - 110 mg/dL [facility] Specimen Blood Performing Organization Address [facility] Phone Number [facility] CLIA: [id number], [address] [place] [address] [facility] POCT GLUCOSE (AUTOMATED) (10/14/2019 7:12 PM CDT) Pathologist Sig nature POCT GLU 151 (H) 70 - 110 mg/dL [facility] Specimen Blood Performing Organization Address [facility] Phone Number [facility] CLIA: [id number], [address] [place] [address] [facility] POCT GLUCOSE (AUTOMATED) (10/14/2019 11:49 AM CDT) Pathologist Sig nature POCT GLU 146 (H) 70 - 110 mg/dL [facility] Specimen Blood Performing Organization Address [facility] Phone Number [facility] CLIA: [id number], [address] [place] [address] [facility] BASIC METABOLIC PANEL (NA, K, CL, CO2, GLUCOSE, BUN, CREATININE, CA) (10/14/2019 5:39 AM CDT) Pathologist Sig nature NA 146 (H) 135 - 145 [facility] mmol/L SERVICES K 3.9 3.5 - 5.0 [facility] mmol/L SERVICES CL 109 (H) 98 - 108 mmol/L [facility] SERVICES CO2 TOTAL 34 (H) 23 - 31 mmol/L [facility] SERVICES AGAP 3 2 - 16 [facility] BUN 23 7 - 23 mg/dL [facility] GLUCOSE 135 (H) 70 - 110 mg/dL [facility] CREATININE 0.72 0.50 - 1.04 [facility] mg/dL SERVICES CALCIUM 9.1 8.6 - 10.6 [facility] mg/dL SERVICES eGFR Calculation 89.3 mL/min/1.73m2 [facility] (Non- SERVICES Swedish) eGFR Calculation 108.2 mL/min/1.73m2 [facility] () SERVICES Specimen Blood - ARM, LEFT Narrative Performed At Association of Glomerular Filtration Rate (GFR) and St aging [facility] SERVICES of Kidney Disease* + + +------- ------ + | GFR (mL/min/1.73 m2) | With Kidney Damage | Wi thout Kidney Damage + + +------- ------ + | >90 | Stage one | Normal + + +------- ------ + | 60-89 | Stage two | Decreased GFR + + +------- ------ + | 30-59 | Stage three | Stage three + + +------- ------ + | 15-29 | Stage four | Stage four + + +------- ------ + | <15 (or dialysis) | Stage five | Stage five + + +------- ------ + *Each stage assumes the associated GFR level has been in effect for at least three months. Stages 1 to 5, wit h or without kidney disease, indicate chronic kidney disease. Notes: Determination of stages one and two (with eGFR >59mL/min/1.73 m2) requires estimation of kidney damag e for at least three months as defined by structural or func tional abnormalities of the kidney, manifested by either: Pathological abnormalities or Markers of kidney damage (including abnormalities in the composition of the blo od or urine or abnormalities in imaging tests) . Performing Organization Address City/State/Zipcode Phone Number [facility] CLIA: [id number], [address] [address] 555 [facility] CBC WITH DIFFERENTIAL (10/14/2019 5:39 AM CDT) [facility] WBC 5.85 4.30 - 11.10 [facility] 10*3/L SERVICES RBC 3.61 (L) 3.93 - 5.25 [facility] 10*6/L SERVICES HGB 7.9 (L) 11.6 - 15.0 [facility] g/dL SERVICES HCT 31.3 (L) 35.7 - 45.2 % [facility] MCV 86.7 80.6 - 95.5 fL [facility] MCH 21.9 (L) 25.9 - 32.8 pg [facility] MCHC 25.2 (L) 31.6 - 35.1 [facility] g/dL SERVICES RDW-SD 90.7 (H) 39.0 - 49.9 fL [facility] RDW-CV 29.1 (H) 12.0 - 15.5 % [facility] PLT 322 166 - 358 [facility] 10*3/L SERVICES MPV 10.2 9.5 - 12.9 fL [facility] NRBC/100 WBC 0.0 0.0 - 10.0 /100 [facility] WBCs SERVICES NRBC x10^3 <0.01 10*3/L [facility] GRAN MAT (NEUT) % 74.8 % [facility] IMM GRAN % 0.50 % [facility] LYMPH % 14.9 % [facility] MONO % 7.4 % [facility] EOS % 2.1 % [facility] BASO % 0.3 % [facility] GRAN MAT x10^3(ANC) 4.38 1.88 - 7.09 [facility] 10*3/uL SERVICES IMM GRAN x10^3 0.03 0.00 - 0.06 [facility] 10*3/uL SERVICES LYMPH x10^3 0.87 (L) 1.32 - 3.29 [facility] 10*3/uL SERVICES MONO x10^3 0.43 0.33 - 0.92 [facility] 10*3/uL SERVICES EOS x10^3 0.12 0.03 - 0.39 [facility] 10*3/uL SERVICES BASO x10^3 <0.03 0.01 - 0.07 [facility] 10*3/uL SERVICES Specimen Blood - ARM, LEFT Performing Organization Address City/[facility] Phone Number [facility] CLIA: [id number], [address] [place] [address] [phone] [facility] MAGNESIUM (10/14/2019 5:39 AM CDT) Pathologist Sig nature MAGNESIUM 2.0 1.7 - 2.4 mg/dL [facility] SERVICES Specimen Blood - ARM, LEFT Performing Organization Address [facility] Phone Number [facility] CLIA: [id number], [address] [place] [address] [phone] [facility] POCT GLUCOSE (AUTOMATED) (10/14/2019 5:38 AM CDT) Pathologist Sig nature POCT GLU 140 (H) 70 - 110 mg/dL [facility] Specimen Blood Performing Organization Address [facility] Phone Number [facility] CLIA: [id number], [address] [place] [address] [phone] [facility] POCT GLUCOSE (AUTOMATED) (10/14/2019 12:28 AM CDT) Pathologist Sig nature POCT GLU 147 (H) 70 - 110 mg/dL [facility] Specimen Blood Performing Organization Address City/[facility] Phone Number [facility] CLIA: [id number], [address] [place] [address] [phone] [facility] POCT GLUCOSE (AUTOMATED) (10/13/2019 7:18 PM CDT) Pathologist Sig nature POCT GLU 131 (H) 70 - 110 mg/dL [facility] Specimen Blood Performing Organization Address City/[facility] Phone Number [facility] CLIA: [id number], [address] [place] [address] [phone] [facility] Acute Care Arterial Blood Gas. (10/13/2019 12:58 PM CDT) Pathologist Sig nature PH 7.42 7.35 - 7.45 [facility] PCO2 47 (H) 35 - 45 mmHg [facility] PO2 96 80 - 100 mmHg [facility] HCO3 30 (H) 22 - 26 mEq/L [facility] BE 4.6 (H) -3.0 - 3.0 mEq/L [facility] SERVICES Specimen Blood Performing Organization Address City/[facility] Phone Number [facility] CLIA: [id number], [address] [place] [phone] [facility] POCT GLUCOSE (AUTOMATED) (10/13/2019 11:09 AM CDT) Pathologist Sig nature POCT GLU 119 (H) 70 - 110 mg/dL [facility] Specimen Blood Performing Organization Address [facility] Phone Number [facility] CLIA: [id number], [address] [place] [address] [phone] [facility] POCT GLUCOSE (AUTOMATED) (10/13/2019 5:26 AM CDT) Pathologist Sig nature POCT GLU 139 (H) 70 - 110 mg/dL [facility] Specimen Blood Performing Organization Address City/[facility] Phone Number [facility] CLIA: [id number], [address] [place] [address] [phone] [place] [address] CBC WITH DIFFERENTIAL (10/13/2019 2:11 AM CDT) WBC 5.32 4.30 - 11.10 [facility] 10*3/L SERVICES RBC 3.58 (L) 3.93 - 5.25 [facility] 10*6/L SERVICES HGB 7.6 (L) 11.6 - 15.0 [facility] g/dL SERVICES HCT 30.5 (L) 35.7 - 45.2 % [facility] MCV 85.2 80.6 - 95.5 [facility] fL SERVICES MCH 21.2 (L) 25.9 - 32.8 [facility] pg SERVICES MCHC 24.9 (L) 31.6 - 35.1 [facility] g/dL SERVICES RDW-SD 88.3 (H) 39.0 - 49.9 [facility] fL SERVICES RDW-CV 28.8 (H) 12.0 - 15.5 % [facility] PLT 317 166 - 358 [facility] 10*3/L SERVICES MPV 10.2 9.5 - 12.9 fL [facility] IPF % 2.4Comment: Platelet 1.3 - 7.7 % [facility] count measured by SERVICES fluorescence method. NRBC/100 WBC 0.0 0.0 - 10.0 [facility] /100 WBCs SERVICES NRBC x10^3 <0.01 10*3/L [facility] GRAN MAT (NEUT) % 74.0 % [facility] IMM GRAN % 0.40 % [facility] LYMPH % 14.1 % [facility] MONO % 8.1 % [facility] EOS % 3.2 % [facility] BASO % 0.2 % [facility] GRAN MAT 3.94 1.88 - 7.09 [facility] x10^3(ANC) 10*3/uL SERVICES IMM GRAN x10^3 <0.03 0.00 - 0.06 [facility] 10*3/uL SERVICES LYMPH x10^3 0.75 (L) 1.32 - 3.29 [facility] 10*3/uL SERVICES MONO x10^3 0.43 0.33 - 0.92 [facility] 10*3/uL SERVICES EOS x10^3 0.17 0.03 - 0.39 [facility] 10*3/uL SERVICES BASO x10^3 <0.03 0.01 - 0.07 [facility] 10*3/uL SERVICES ELLIPTO/OVAL 2+ (A) (none) [facility] SERVICES Specimen Blood - VENOUS Performing Organization Address City/State/Zipcode Phone Number [facility] CLIA: [id number], [address] [address] 555 [facility] BASIC METABOLIC PANEL (NA, K, CL, CO2, GLUCOSE, BUN, CREATININE, CA) (10/13/2019 2:11 AM CDT) [facility] NA 145 135 - 145 [facility] mmol/L SERVICES K 3.6 3.5 - 5.0 [facility] mmol/L SERVICES CL 109 (H) 98 - 108 mmol/L [facility] CO2 TOTAL 31 23 - 31 mmol/L [facility] AGAP 5 2 - 16 [facility] BUN 24 (H) 7 - 23 mg/dL [facility] GLUCOSE 135 (H) 70 - 110 mg/dL [facility] CREATININE 0.61 0.50 - 1.04 [facility] mg/dL SERVICES CALCIUM 9.1 8.6 - 10.6 [facility] mg/dL SERVICES eGFR Calculation 108.1 mL/min/1.73m2 [facility] (Non- SERVICES Swedish) eGFR Calculation 131.0 mL/min/1.73m2 [facility] () SERVICES Specimen Blood - VENOUS Narrative Performed At Association of Glomerular Filtration Rate (GFR) and St aging [facility] SERVICES of Kidney Disease* + + +------- ------ + | GFR (mL/min/1.73 m2) | With Kidney Damage | Joseph keller Kidney Damage + + +------- ------ + | >90 | Stage one | Normal + + +------- ------ + | 60-89 | Stage two | Decreased GFR + + +------- ------ + | 30-59 | Stage three | Stage three + + +------- ------ + | 15-29 | Stage four | Stage four + + +------- ------ + | <15 (or dialysis) | Stage five | Stage five + + +------- ------ + *Each stage assumes the associated GFR level has been in effect for at least three months. Stages 1 to 5, wit h or without kidney disease, indicate chronic kidney disease. Notes: Determination of stages one and two (with eGFR >59mL/min/1.73 m2) requires estimation of kidney damag e for at least three months as defined by structural or func tional abnormalities of the kidney, manifested by either: Pathological abnormalities or Markers of kidney damage (including abnormalities in the composition of the blo od or urine or abnormalities in imaging tests) . Performing Organization Address City/[facility] Phone Number [facility] CLIA: [id number], [address] [place] [phone] [facility] MAGNESIUM (10/13/2019 2:11 AM CDT) Pathologist Sig nature MAGNESIUM 1.8 1.7 - 2.4 mg/dL [facility] Specimen Blood - VENOUS Performing Organization Address [facility] Phone Number [facility] CLIA: [id number], [address] [place] [phone] [facility] POCT GLUCOSE (AUTOMATED) (10/13/2019 12:07 AM CDT) Pathologist Sig nature POCT GLU 132 (H) 70 - 110 mg/dL [facility] Specimen Blood Performing Organization Address [facility] Phone Number [facility] CLIA: [id number], [address] [place] [address] [phone] [facility] POCT GLUCOSE (AUTOMATED) (10/12/2019 5:58 PM CDT) Pathologist Sig nature POCT GLU 118 (H) 70 - 110 mg/dL [facility] Specimen Blood Performing Organization Address [facility] Phone Number [facility] CLIA: [id number], [address] [place] [address] [phone] [facility] Acute Care Arterial Blood Gas. (10/12/2019 4:47 PM CDT) Pathologist Sig nature PH 7.47 (H) 7.35 - 7.45 [facility] PCO2 39 35 - 45 mmHg [facility] PO2 67 (L) 80 - 100 mmHg [facility] HCO3 28 (H) 22 - 26 mEq/L [facility] BE 3.3 (H) -3.0 - 3.0 mEq/L [facility] Specimen Blood - ARTERIAL Performing Organization Address [facility] Phone Number [facility] CLIA: [id number], [address] [place] [phone] [facility] POCT GLUCOSE (AUTOMATED) (10/12/2019 11:55 AM CDT) Pathologist Sig nature POCT GLU 116 (H) 70 - 110 mg/dL [facility] Specimen Blood Performing Organization Address City/[facility]/Zipcode Phone Number [facility] CLIA: [id number], [address] [place] [address] [phone] [facility] AC PANEL 20 + LACTIC ACID (10/12/2019 10:11 AM CDT) Pathologist Sig nature PH 7.24 (L) 7.35 - 7.45 [facility] PCO2 68 (H) 35 - 45 mmHg [facility] PO2 61 (L) 80 - 100 mmHg [facility] HCO3 29 (H) 22 - 26 mEq/L [facility] BE 0.4 -3.0 - 3.0 mEq/L [facility] THB 9.0 (L) 12.0 - 16.0 g/dL [facility] %O2HB 81.7 (L) 94.0 - 99.0 % [facility] %COHB ART 0.9 0.0 - 1.5 % [facility] %METHB ART 0.7 0.4 - 1.5 % [facility] VOL%O2 ART 10.4 (L) 15.0 - 23.0 % [facility] NA 146 (H) 135 - 145 mmol/L [facility] K+ 4.0 3.5 - 5.0 mmol/L [facility] AC CA IONZ 5.10 4.50 - 5.30 mg/dL [facility] GLUCOSE 107 70 - 110 mg/dL [facility] LACTIC ACID 0.89 0.50 - 2.20 mmol/L [facility] Specimen Blood - ARTERIAL Performing Organization Address City/State/Zipcode Phone Number [facility] CLIA: [id number], [address] [place] [phone] [facility] CBC WITH DIFFERENTIAL (10/12/2019 5:08 AM CDT) WBC 5.15 4.30 - 11.10 [facility] 10*3/L SERVICES RBC 3.44 (L) 3.93 - 5.25 [facility] 10*6/L SERVICES HGB 7.3 (L) 11.6 - 15.0 [facility] g/dL SERVICES HCT 29.4 (L) 35.7 - 45.2 % [facility] MCV 85.5 80.6 - 95.5 [facility] fL SERVICES MCH 21.2 (L) 25.9 - 32.8 [facility] pg SERVICES MCHC 24.8 (L) 31.6 - 35.1 [facility] g/dL SERVICES RDW-SD 88.4 (H) 39.0 - 49.9 [facility] fL SERVICES RDW-CV 29.2 (H) 12.0 - 15.5 % [facility] PLT 319 166 - 358 [facility] 10*3/L SERVICES MPV Comment: Not [facility] Measured SERVICES IPF % 2.7Comment: Platelet 1.3 - 7.7 % [facility] count measured by SERVICES fluorescence method. NRBC/100 WBC 0.0 0.0 - 10.0 [facility] /100 WBCs SERVICES NRBC x10^3 <0.01 10*3/L [facility] GRAN MAT (NEUT) % 76.2 % [facility] IMM GRAN % 0.20 % [facility] LYMPH % 12.4 % [facility] MONO % 8.3 % [facility] EOS % 2.7 % [facility] BASO % 0.2 % [facility] GRAN MAT 3.92 1.88 - 7.09 [facility] x10^3(ANC) 10*3/uL SERVICES IMM GRAN x10^3 <0.03 0.00 - 0.06 [facility] 10*3/uL SERVICES LYMPH x10^3 0.64 (L) 1.32 - 3.29 [facility] 10*3/uL SERVICES MONO x10^3 0.43 0.33 - 0.92 [facility] 10*3/uL SERVICES EOS x10^3 0.14 0.03 - 0.39 [facility] 10*3/uL SERVICES BASO x10^3 <0.03 0.01 - 0.07 [facility] 10*3/uL SERVICES Specimen Blood - VENOUS Performing Organization Address City/State/Zipcode Phone Number [facility] CLIA: [id number], [address] [place] [place] [address] [facility] BASIC METABOLIC PANEL (NA, K, CL, CO2, GLUCOSE, BUN, CREATININE, CA) (10/12/2019 5:08 AM CDT) [facility] NA 146 (H) 135 - 145 [facility] mmol/L SERVICES K 3.5 3.5 - 5.0 [facility] mmol/L SERVICES CL 110 (H) 98 - 108 mmol/L [facility] CO2 TOTAL 30 23 - 31 mmol/L [facility] AGAP 6 2 - 16 [facility] BUN 32 (H) 7 - 23 mg/dL [facility] GLUCOSE 102 70 - 110 mg/dL [facility] CREATININE 0.68 0.50 - 1.04 [facility] mg/dL SERVICES CALCIUM 9.1 8.6 - 10.6 [facility] mg/dL SERVICES eGFR Calculation 95.4 mL/min/1.73m2 [facility] (Non- SERVICES Swedish) eGFR Calculation 115.6 mL/min/1.73m2 [facility] () SERVICES Specimen Blood - VENOUS Narrative Performed At Association of Glomerular Filtration Rate (GFR) and St aging [facility] SERVICES of Kidney Disease* + + +------- ------ + | GFR (mL/min/1.73 m2) | With Kidney Damage | Wi thout Kidney Damage + + +------- ------ + | >90 | Stage one | Normal + + +------- ------ + | 60-89 | Stage two | Decreased GFR + + +------- ------ + | 30-59 | Stage three | Stage three + + +------- ------ + | 15-29 | Stage four | Stage four + + +------- ------ + | <15 (or dialysis) | Stage five | Stage five + + +------- ------ + *Each stage assumes the associated GFR level has been in effect for at least three months. Stages 1 to 5, wit h or without kidney disease, indicate chronic kidney disease. Notes: Determination of stages one and two (with eGFR >59mL/min/1.73 m2) requires estimation of kidney damag e for at least three months as defined by structural or func tional abnormalities of the kidney, manifested by either: Pathological abnormalities or Markers of kidney damage (including abnormalities in the composition of the blo od or urine or abnormalities in imaging tests) . Performing Organization Address City/State/Zipcode Phone Number [facility] CLIA: [id number], [address] [place] [phone] [facility] MAGNESIUM (10/12/2019 5:08 AM CDT) Pathologist Sig nature MAGNESIUM 1.9 1.7 - 2.4 mg/dL [facility] Specimen Blood - VENOUS Performing Organization Address [facility] Phone Number [facility] CLIA: [id number], [address] [place] [phone] [facility] POCT GLUCOSE (AUTOMATED) (10/12/2019 12:06 AM CDT) Pathologist Sig nature POCT GLU 112 (H) 70 - 110 mg/dL [facility] Specimen Blood Performing Organization Address [facility] Phone Number [facility] CLIA: [id number], [address] [place] [address] [phone] [facility] POCT GLUCOSE (AUTOMATED) (10/11/2019 6:10 PM CDT) Pathologist Sig nature POCT GLU 101 70 - 110 mg/dL [facility] Specimen Blood Performing Organization Address [facility] Phone Number [facility] CLIA: [id number], [address] [place] [address] [phone] [facility] POCT GLUCOSE (AUTOMATED) (10/11/2019 11:56 AM CDT) Pathologist Sig nature POCT GLU 91 70 - 110 mg/dL [facility] Specimen Blood Performing Organization Address [facility] Phone Number [facility] CLIA: [id number], [address] [place] [address] [phone] [facility] XR CHEST 1 VW (10/11/2019 10:16 AM CDT) Specimen Narrative Performed At EXAM: XR CHEST 1 VW PACS/VR/DOSE HISTORY: Assessment of pulmonary edema r esolution COMPARISON: None. FINDINGS: The heart remains slightly enlarged. Hilar vascular co ngestion is present with interstitial pulmonary edema on both sides. The i mage Is underexposed and comparison with the most recent previous study is not really possible. Procedure Note [facility], Radiant Results Inft User - 2019 10:48 AM CDT EXAM: XR CHEST 1 VW HISTORY: Assessment of pulmonary edema r esolution COMPARISON: None. FINDINGS: The heart remains slightly enlarged. Hil ar vascular congestion is present with interstitial pulmonary edema on bot h sides. The image Is underexposed and comparison with the most recent prev ious study is not really possible. Performing Organization Address City/State/Zipcode Phone Number PACS/VR/DOSE POCT GLUCOSE (AUTOMATED) (10/11/2019 5:20 AM CDT) Pathologist Sig nature POCT GLU 96 70 - 110 mg/dL [facility] Specimen Blood Performing Organization Address City/State/Zipcode Phone Number [facility] CLIA: [id number], [address] [place], [place] 7[address] [facility] CBC WITH DIFFERENTIAL (10/11/2019 5:09 AM CDT) WBC 4.40 4.30 - 11.10 [facility] 10*3/L SERVICES RBC 3.62 (L) 3.93 - 5.25 [facility] 10*6/L SERVICES HGB 7.9 (L) 11.6 - 15.0 [facility] g/dL SERVICES HCT 31.0 (L) 35.7 - 45.2 [facility] % SERVICES MCV 85.6 80.6 - 95.5 [facility] fL SERVICES MCH 21.8 (L) 25.9 - 32.8 [facility] pg SERVICES MCHC 25.5 (L) 31.6 - 35.1 [facility] g/dL SERVICES RDW-SD 90.3 (H) 39.0 - 49.9 [facility] fL SERVICES RDW-CV 29.3 (H) 12.0 - 15.5 [facility] % SERVICES PLT 351 166 - 358 [facility] 10*3/L SERVICES MPV Comment: Not [facility] Measured SERVICES IPF % 6.4Comment: 1.3 - 7.7 % [facility] Platelet count SERVICES measured by fluorescence method. NRBC/100 WBC 0.0 0.0 - 10.0 [facility] /100 WBCs SERVICES NRBC x10^3 <0.01 10*3/L [facility] GRAN MAT (NEUT) % 76.0 % [facility] IMM GRAN % 0.20 % [facility] LYMPH % 12.0 % [facility] MONO % 7.5 % [facility] EOS % 4.1 % [facility] BASO % 0.2 % [facility] GRAN MAT x10^3(ANC) 3.34 1.88 - 7.09 [facility] 10*3/uL SERVICES IMM GRAN x10^3 <0.03 0.00 - 0.06 [facility] 10*3/uL SERVICES LYMPH x10^3 0.53 (L) 1.32 - 3.29 [facility] 10*3/uL SERVICES MONO x10^3 0.33 0.33 - 0.92 [facility] 10*3/uL SERVICES EOS x10^3 0.18 0.03 - 0.39 [facility] 10*3/uL SERVICES BASO x10^3 <0.03 0.01 - 0.07 [facility] 10*3/uL SERVICES BASO STIPPLING Present (A) [facility] ELLIPTO/OVAL 2+ (A) (none) [facility] POLYCHROMASIA 2+ 2+ [facility] SCHISTOCYTES 1+ (A) [facility] BANDS Increased (A) [facility] Specimen Blood - VENOUS Performing Organization Address City/State/Zipcode Phone Number [facility] CLIA: [id number], [address] [place] [address] 555 [facility] BASIC METABOLIC PANEL (NA, K, CL, CO2, GLUCOSE, BUN, CREATININE, CA) (10/11/2019 5:09 AM CDT) Pathologist Sig nature NA 147 (H) 135 - 145 [facility] mmol/L SERVICES K 4.0 3.5 - 5.0 [facility] mmol/L SERVICES CL 110 (H) 98 - 108 mmol/L [facility] SERVICES CO2 TOTAL 29 23 - 31 mmol/L [facility] AGAP 8 2 - 16 [facility] BUN 40 (H) 7 - 23 mg/dL [facility] SERVICES GLUCOSE 100 70 - 110 mg/dL [facility] CREATININE 0.86 0.50 - 1.04 [facility] mg/dL SERVICES CALCIUM 9.3 8.6 - 10.6 [facility] mg/dL SERVICES eGFR Calculation 72.7 mL/min/1.73m2 [facility] (Non- SERVICES Swedish) eGFR Calculation 88.1 mL/min/1.73m2 [facility] () SERVICES Specimen Blood - VENOUS Narrative Performed At Association of Glomerular Filtration Rate (GFR) and St aging [facility] SERVICES of Kidney Disease* + + +------- ------ + | GFR (mL/min/1.73 m2) | With Kidney Damage | Wi thout Kidney Damage + + +------- ------ + | >90 | Stage one | Normal + + +------- ------ + | 60-89 | Stage two | Decreased GFR + + +------- ------ + | 30-59 | Stage three | Stage three + + +------- ------ + | 15-29 | Stage four | Stage four + + +------- ------ + | <15 (or dialysis) | Stage five | Stage five + + +------- ------ + *Each stage assumes the associated GFR level has been in effect for at least three months. Stages 1 to 5, wit h or without kidney disease, indicate chronic kidney disease. Notes: Determination of stages one and two (with eGFR >59mL/min/1.73 m2) requires estimation of kidney damag e for at least three months as defined by structural or func tional abnormalities of the kidney, manifested by either: Pathological abnormalities or Markers of kidney damage (including abnormalities in the composition of the blo od or urine or abnormalities in imaging tests) . Performing Organization Address City/[facility]/Zipcode Phone Number [facility] CLIA: [id number], [address] [place] [phone] [facility] MAGNESIUM (10/11/2019 5:09 AM CDT) [facility] MAGNESIUM 2.2 1.7 - 2.4 mg/dL [facility] SERVICES Specimen Blood - VENOUS Performing Organization Address [facility] Phone Number [facility] CLIA: [id number], [address] [place] [address] [phone] [facility] POCT GLUCOSE (AUTOMATED) (10/10/2019 11:47 PM CDT) Pathologist [facility] POCT GLU 100 70 - 110 mg/dL [facility] Specimen Blood Performing Organization Address [facility] Phone Number [facility] CLIA: [id number], [address] [place] [phone] [facility] POCT GLUCOSE (AUTOMATED) (10/10/2019 6:09 PM CDT) Pathologist Sig nature POCT GLU 101 70 - 110 mg/dL [facility] Specimen Blood Performing Organization Address City/State/Zipcode Phone Number [facility] CLIA: [id number], [address] [place], [place] 7755 [facility] HEPATOBILIARY (10/10/2019 3:40 PM CDT) Specimen Impressions Performed At PACS/VR/DOSE No evidence for acute cholecystitis or b iliary obstruction. Suspected diverticulum at the second por tion of the duodenum. Preliminary Report Dictated by Resident: Lele Lawton I, Karl Wan MD., have reviewed this study and agree with the above report. Narrative Performed At [facility] PACS/VR/DOSE CLINICAL HISTORY: 43-year-old female, concern for bi liary pathology given her prolonged febrile episodes. COMPARISON: Ultrasound abdomen on TECHNIQUE AND FINDINGS: Sincalide pretreatment was utilized in t his patient nothing by mouth greater than 24 hours. The patient received an intrave nous injection of 10 mCi technetium 99m mebrofenin and sequen tial images of the abdomen were obtained for one hour. Initial images show normal tracer uptake by the liver parenchyma with rapid washout to intra and extrahepatic bile d ucts. The common bile duct is patent. There is focal accumulation of tracer in the a samina of duodenum which persist for about 39 minutes before it p rogressively passes through the remaining portions of the duodenum. The tracer moves antegrade in the small bowel. The gallbladder is visualized by 30 charles isadora. Procedure Note [facility], Radiant Results Inft User - 2019 5:00 PM CDT HIDA SCAN CLINICAL HISTORY: 43-year-old female, c oncern for biliary pathology given her prolonged febrile episodes. COMPARISON: Ultrasound abdomen on TECHNIQUE AND FINDINGS: Sincalide pretreatment was utilized in t his patient nothing by mouth greater than 24 hours. The patient recei frankie an intravenous injection of 10 mCi technetium 99m mebrofenin and sequen tial images of the abdomen were obtained for one hour. Initial images show normal tracer uptake by the liver parenchyma with rapid washout to intra and extrahepatic bile d ucts. The common bile duct is patent. There is focal accumulation of t racer in the area of duodenum which persist for about 39 minutes before it p rogressively passes through the remaining portions of the duodenum. The tracer moves antegrade in the small bowel. The gallbladder is visualized by 30 charles isadora. IMPRESSION No evidence for acute cholecystitis or b iliary obstruction. Suspected diverticulum at the second por tion of the duodenum. Preliminary Report Dictated by Resident: Lele Lawton I, Karl Wan MD., have reviewed is study and agree with the above report. Performing Organization Address City/State/[facility] Phone Number PACS/VR/DOSE POCT GLUCOSE (AUTOMATED) (10/10/2019 12:03 PM CDT) Pathologist Sig nature POCT GLU 114 (H) 70 - 110 mg/dL [facility] Specimen Blood Performing Organization Address City/[facility] Phone Number [facility] CLIA: [id number], [address] [place] [phone] [facility] POCT GLUCOSE (AUTOMATED) (10/10/2019 5:28 AM CDT) Pathologist Sig nature POCT GLU 108 70 - 110 mg/dL [facility] Specimen Blood Performing Organization Address [facility] Phone Number [facility] CLIA: [id number], [address] [place] [phone] [facility] CBC WITH DIFFERENTIAL (10/10/2019 2:23 AM CDT) WBC 4.91 4.30 - 11.10 [facility] 10*3/L SERVICES RBC 3.46 (L) 3.93 - 5.25 [facility] 10*6/L SERVICES HGB 7.3 (L) 11.6 - 15.0 [facility] g/dL SERVICES HCT 29.7 (L) 35.7 - 45.2 [facility] % SERVICES MCV 85.8 80.6 - 95.5 [facility] fL SERVICES MCH 21.1 (L) 25.9 - 32.8 [facility] pg SERVICES MCHC 24.6 (L) 31.6 - 35.1 [facility] g/dL SERVICES RDW-SD 90.6 (H) 39.0 - 49.9 [facility] fL SERVICES RDW-CV 29.8 (H) 12.0 - 15.5 [facility] % SERVICES PLT 334 166 - 358 [facility] 10*3/L SERVICES MPV Comment: Not [facility] Measured SERVICES IPF % 3.9Comment: 1.3 - 7.7 % [facility] Platelet count SERVICES measured by fluorescence method. NRBC/100 WBC 0.0 0.0 - 10.0 [facility] /100 WBCs SERVICES NRBC x10^3 <0.01 10*3/L [facility] SERVICES GRAN MAT (NEUT) % 78.4 % [facility] SERVICES IMM GRAN % 0.20 % [facility] SERVICES LYMPH % 9.6 % [facility] SERVICES MONO % 7.7 % [facility] SERVICES EOS % 3.9 % [facility] SERVICES BASO % 0.2 % [facility] SERVICES GRAN MAT x10^3(ANC) 3.85 1.88 - 7.09 [facility] 10*3/uL SERVICES IMM GRAN x10^3 <0.03 0.00 - 0.06 [facility] 10*3/uL SERVICES LYMPH x10^3 0.47 (L) 1.32 - 3.29 [facility] 10*3/uL SERVICES MONO x10^3 0.38 0.33 - 0.92 [facility] 10*3/uL SERVICES EOS x10^3 0.19 0.03 - 0.39 [facility] 10*3/uL SERVICES BASO x10^3 <0.03 0.01 - 0.07 [facility] 10*3/uL SERVICES SCHISTOCYTES 1+ (A) [facility] SERVICES Specimen Blood - VENOUS Performing Organization Address City/[facility]/Zipcode Phone Number [facility] CLIA: [id number], [address] [place] [phone] [facility] MAGNESIUM (10/10/2019 2:23 AM CDT) [facility] MAGNESIUM 2.0 1.7 - 2.4 mg/dL [facility] SERVICES Specimen Blood - VENOUS Performing Organization Address [facility]/Zipcode Phone Number [facility] CLIA: [id number], [address] [place] [address] [phone] [facility] BASIC METABOLIC PANEL (NA, K, CL, CO2, GLUCOSE, BUN, CREATININE, CA) (10/10/2019 2:23 AM CDT) [facility] nature NA 145 135 - 145 [facility] mmol/L SERVICES K 3.4 (L) 3.5 - 5.0 [facility] mmol/L SERVICES CL 108 98 - 108 mmol/L [facility] SERVICES CO2 TOTAL 29 23 - 31 mmol/L [facility] SERVICES AGAP 8 2 - 16 [facility] SERVICES BUN 41 (H) 7 - 23 mg/dL [facility] SERVICES GLUCOSE 112 (H) 70 - 110 mg/dL [facility] SERVICES CREATININE 0.77 0.50 - 1.04 [facility] mg/dL SERVICES CALCIUM 8.7 8.6 - 10.6 [facility] mg/dL SERVICES eGFR Calculation 82.6 mL/min/1.73m2 [facility] (Non- SERVICES Swedish) eGFR Calculation 100.1 mL/min/1.73m2 [facility] () SERVICES Specimen Blood - VENOUS Narrative Performed At Association of Glomerular Filtration Rate (GFR) and St aging [facility] SERVICES of Kidney Disease* + + +------- ------ + | GFR (mL/min/1.73 m2) | With Kidney Damage | Wi out Kidney Damage + + +------- ------ + | >90 | Stage one | Normal + + +------- ------ + | 60-89 | Stage two | Decreased GFR + + +------- ------ + | 30-59 | Stage three | Stage three + + +------- ------ + | 15-29 | Stage four | Stage four + + +------- ------ + | <15 (or dialysis) | Stage five | Stage five + + +------- ------ + *Each stage assumes the associated GFR level has been in effect for at least three months. Stages 1 to 5, wit h or without kidney disease, indicate chronic kidney disease. Notes: Determination of stages one and two (with eGFR >59mL/min/1.73 m2) requires estimation of kidney damag e for at least three months as defined by structural or func tional abnormalities of the kidney, manifested by either: Pathological abnormalities or Markers of kidney damage (including abnormalities in the composition of the blo od or urine or abnormalities in imaging tests) . Performing Organization Address City/State/Zipcode Phone Number [facility] CLIA: [id number], [address], [place] [address] [facility] HEPATIC FUNCTION PANEL ([id number]) (ALB,T.PRO,BILI T,BU/BC,ALT,AST,ALK PHOS) (10/10/2019 2:23 AM CDT) Pathologist Sig nature TOTAL BILI 0.9 0.1 - 1.1 mg/dL [facility] SERVICES BILI UNCON 0.2 0.1 - 1.1 mg/dL [facility] SERVICES BILI CONJ 0.0 0.0 - 0.3 mg/dL [facility] T PROTEIN 7.2 6.3 - 8.2 g/dL [facility] SERVICES ALBUMIN 2.8 (L) 3.5 - 5.0 g/dL [facility] SERVICES ALK PHOS 51 34 - 122 U/L [facility] SERVICES ALTv 14 5 - 35 U/L [facility] SERVICES AST(SGOT) 43 (H) 13 - 40 U/L [facility] SERVICES Specimen Blood - VENOUS Performing Organization Address City/State/Zipcode Phone Number [facility] CLIA: [id number], [address] [place] [phone] [facility] POCT GLUCOSE (AUTOMATED) (10/10/2019 12:49 AM CDT) Pathologist Sig [facility] POCT GLU 92 70 - 110 mg/dL [facility] Specimen Blood Performing Organization Address City/[facility]/Zipcode Phone Number [facility] CLIA: [id number], [address] [place] [phone] [facility] XR KUB (10/09/2019 10:09 PM CDT) Specimen Impressions Performed At PACS/VR/DOSE 1. Enteric tube terminates in the distal stomach. Narrative Performed At EXAM: XR KUB PACS/VR/DOSE HISTORY: NGT placement COMPARISON: 10/02/2019 FINDINGS: Lines/Tubes: The enteric tube terminates at the distal stomach. The bowel gas distribution is nonspecific and not obst ructed. No abnormal calcifications. Bones: No acute osseous abnormality is s een. Procedure Note [facility], Radiant Results Inft User - 2019 10:39 PM CDT EXAM: XR KUB HISTORY: NGT placement COMPARISON: 10/02/2019 FINDINGS: Lines/Tubes: The enteric tube terminates at the distal stomach. The bowel gas distribution is nonspecifi c and not obstructed. No abnormal calcifications. Bones: No acute osseous abnormality is s een. IMPRESSION 1. Enteric tube terminates in the dista l stomach. Performing Organization Address City/[facility]/Zipcode Phone Number PACS/VR/DOSE POCT GLUCOSE (AUTOMATED) (10/09/2019 5:43 PM CDT) Pathologist Sig nature POCT GLU 123 (H) 70 - 110 mg/dL [facility] Specimen Blood Performing Organization Address City/[facility] Phone Number [facility] CLIA: [id number], [address] [place] [phone] [facility] POCT GLUCOSE (AUTOMATED) (10/09/2019 11:53 AM CDT) Pathologist Sig nature POCT GLU 113 (H) 70 - 110 mg/dL [facility] Specimen Blood Performing Organization Address [facility] Phone Number [facility] CLIA: [id number], [address] [place] [phone] [facility] POCT GLUCOSE (AUTOMATED) (10/09/2019 6:46 AM CDT) Pathologist Sig [facility] POCT GLU 112 (H) 70 - 110 mg/dL [facility] Specimen Blood Performing Organization Address [facility] Phone Number [facility] CLIA: [id number], [address] [place] [address] [facility] HIV 1/2 AG-AB WITH REFLEX (10/09/2019 4:00 AM CDT) Pathologist Sig nature HIV 1/2 Ag-Ab with Negative Negative [facility] Reflex SERVICES HIV Semi-quantitative 0.06 [facility] SERVICES Specimen Blood - VENOUS Narrative Performed At Non-reactive for HIV-1 antigen and HIV-1/HIV-2 antibod ies. [facility] SERVICES No laboratory evidence of HIV infection. Repeat in 2-4 weeks if acute HIV infection is suspected. Performing Organization Address City/[facility] Phone Number [facility] CLIA: [id number], [address] [place] [address] [phone] [facility] WITH DIFFERENTIAL (10/09/2019 4:00 AM CDT) WBC 7.68 4.30 - 11.10 [facility] 10*3/L SERVICES RBC 3.74 (L) 3.93 - 5.25 [facility] 10*6/L SERVICES HGB 7.8 (L) 11.6 - 15.0 [facility] g/dL SERVICES HCT 31.2 (L) 35.7 - 45.2 [facility] % SERVICES MCV 83.4 80.6 - 95.5 [facility] fL SERVICES MCH 20.9 (L) 25.9 - 32.8 [facility] pg SERVICES MCHC 25.0 (L) 31.6 - 35.1 [facility] g/dL SERVICES RDW-SD 88.5 (H) 39.0 - 49.9 [facility] fL SERVICES RDW-CV 30.3 (H) 12.0 - 15.5 [facility] % SERVICES PLT 429 (H) 166 - 358 [facility] 10*3/L SERVICES MPV Comment: Not [facility] Measured SERVICES IPF % 5.2Comment: 1.3 - 7.7 % [facility] Platelet count SERVICES measured by fluorescence method. NRBC/100 WBC 0.0 0.0 - 10.0 [facility] /100 WBCs SERVICES NRBC x10^3 <0.01 10*3/L [facility] SERVICES GRAN MAT (NEUT) % 80.8 % [facility] SERVICES IMM GRAN % 0.30 % [facility] SERVICES LYMPH % 7.4 % [facility] SERVICES MONO % 6.5 % [facility] SERVICES EOS % 4.7 % [facility] SERVICES BASO % 0.3 % [facility] SERVICES GRAN MAT x10^3(ANC) 6.21 1.88 - 7.09 [facility] 10*3/uL SERVICES IMM GRAN x10^3 <0.03 0.00 - 0.06 [facility] 10*3/uL SERVICES LYMPH x10^3 0.57 (L) 1.32 - 3.29 [facility] 10*3/uL SERVICES MONO x10^3 0.50 0.33 - 0.92 [facility] 10*3/uL SERVICES EOS x10^3 0.36 0.03 - 0.39 [facility] 10*3/uL SERVICES BASO x10^3 <0.03 0.01 - 0.07 [facility] 10*3/uL SERVICES ELLIPTO/OVAL 2+ (A) (none) [facility] SERVICES POLYCHROMASIA 2+ 2+ [facility] SERVICES SCHISTOCYTES 1+ (A) [facility] SERVICES BANDS Increased (A) [facility] SERVICES Specimen Blood - VENOUS Performing Organization Address City/[facility]/Zipcode Phone Number [facility] CLIA: [id number], [address] [place] [phone] [facility] MAGNESIUM (10/09/2019 4:00 AM CDT) Pathologist [facility] MAGNESIUM 1.8 1.7 - 2.4 mg/dL [facility] SERVICES Specimen Blood - VENOUS Performing Organization Address [facility] Phone Number [facility] CLIA: [id number], [address] [place] [phone] [facility] BASIC METABOLIC PANEL (NA, K, CL, CO2, GLUCOSE, BUN, CREATININE, CA) (10/09/2019 4:00 AM CDT) Pathologist Sig nature NA 145 135 - 145 [facility] mmol/L SERVICES K 3.3 (L) 3.5 - 5.0 [facility] mmol/L SERVICES CL 106 98 - 108 mmol/L [facility] SERVICES CO2 TOTAL 31 23 - 31 mmol/L [facility] SERVICES AGAP 8 2 - 16 [facility] SERVICES BUN 40 (H) 7 - 23 mg/dL [facility] SERVICES GLUCOSE 117 (H) 70 - 110 mg/dL [facility] SERVICES CREATININE 0.89 0.50 - 1.04 [facility] mg/dL SERVICES CALCIUM 8.9 8.6 - 10.6 [facility] mg/dL SERVICES eGFR Calculation 69.9 mL/min/1.73m2 [facility] (Non- SERVICES Swedish) eGFR Calculation 84.7 mL/min/1.73m2 [facility] () SERVICES Specimen Blood - VENOUS Narrative Performed At Association of Glomerular Filtration Rate (GFR) and St aging [facility] SERVICES of Kidney Disease* + + +------- ------ + | GFR (mL/min/1.73 m2) | With Kidney Damage | Wi thout Kidney Damage + + +------- ------ + | >90 | Stage one | Normal + + +------- ------ + | 60-89 | Stage two | Decreased GFR + + +------- ------ + | 30-59 | Stage three | Stage three + + +------- ------ + | 15-29 | Stage four | Stage four + + +------- ------ + | <15 (or dialysis) | Stage five | Stage five + + +------- ------ + *Each stage assumes the associated GFR level has been in effect for at least three months. Stages 1 to 5, wit h or without kidney disease, indicate chronic kidney disease. Notes: Determination of stages one and two (with eGFR >59mL/min/1.73 m2) requires estimation of kidney damag e for at least three months as defined by structural or func tional abnormalities of the kidney, manifested by either: Pathological abnormalities or Markers of kidney damage (including abnormalities in the composition of the blo od or urine or abnormalities in imaging tests) . Performing Organization Address City/[facility] Phone Number [facility] CLIA: [id number], [address] [place] [address] 555 [facility] HEPATIC FUNCTION PANEL ([id number]) (ALB,T.PRO,BILI T,BU/BC,ALT,AST,ALK PHOS) (10/09/2019 4:00 AM CDT) Pathologist Sig nature TOTAL BILI 0.8 0.1 - 1.1 mg/dL [facility] SERVICES BILI UNCON 0.4 0.1 - 1.1 mg/dL [facility] SERVICES BILI CONJ 0.0 0.0 - 0.3 mg/dL [facility] SERVICES T PROTEIN 7.5 6.3 - 8.2 g/dL [facility] SERVICES ALBUMIN 3.0 (L) 3.5 - 5.0 g/dL [facility] SERVICES ALK PHOS 53 34 - 122 U/L [facility] SERVICES ALTv 16 5 - 35 U/L [facility] SERVICES AST(SGOT) 49 (H) 13 - 40 U/L [facility] SERVICES Specimen Blood - VENOUS Performing Organization Address [facility] Phone Number [facility] CLIA: [id number], [address] [place] [phone] [facility] POCT GLUCOSE (AUTOMATED) (10/09/2019 12:14 AM CDT) Pathologist [facility] POCT GLU 112 (H) 70 - 110 mg/dL [facility] Specimen Blood Performing Organization Address City/[facility] Phone Number [facility] CLIA: [id number], [address] [place] [phone] [facility] POCT GLUCOSE (AUTOMATED) (10/08/2019 5:42 PM CDT) Pathologist Sig nature POCT GLU 116 (H) 70 - 110 mg/dL [facility] Specimen Blood Performing Organization Address City/[facility] Phone Number [facility] CLIA: [id number], [address] [place] [phone] [facility] POCT GLUCOSE (AUTOMATED) (10/08/2019 11:48 AM CDT) Pathologist Sig [facility] POCT GLU 109 70 - 110 mg/dL [facility] Specimen Blood Performing Organization Address [facility] Phone Number [facility] CLIA: [id number], [address] [place] [phone] [facility] POCT GLUCOSE (AUTOMATED) (10/08/2019 11:26 AM CDT) Pathologist Sig [facility] POCT GLU 108 70 - 110 mg/dL [facility] Specimen Blood Performing Organization Address [facility] Phone Number [facility] CLIA: [id number], [address] [place] [address] [facility] LIPASE (10/08/2019 5:07 AM CDT) Pathologist Sig nature LIPASE 152 0 - 220 U/L [facility] SERVICES Specimen Blood - VENOUS Performing Organization Address City/[facility] Phone Number [facility] CLIA: [id number], [address] [place] [phone] [facility] CBC WITH DIFFERENTIAL (10/08/2019 5:07 AM CDT) Pathologist Sig nature WBC 6.03 4.30 - 11.10 [facility] 10*3/L SERVICES RBC 3.51 (L) 3.93 - 5.25 [facility] 10*6/L SERVICES HGB 7.4 (L) 11.6 - 15.0 [facility] g/dL SERVICES HCT 29.5 (L) 35.7 - 45.2 % [facility] MCV 84.0 80.6 - 95.5 fL [facility] SERVICES MCH 21.1 (L) 25.9 - 32.8 pg [facility] SERVICES MCHC 25.1 (L) 31.6 - 35.1 [facility] g/dL SERVICES RDW-SD 91.0 (H) 39.0 - 49.9 fL [facility] SERVICES RDW-CV 30.7 (H) 12.0 - 15.5 % [facility] SERVICES PLT 500 (H) 166 - 358 [facility] 10*3/L SERVICES MPV 10.9 9.5 - 12.9 fL [facility] SERVICES NRBC/100 WBC 0.0 0.0 - 10.0 /100 [facility] WBCs SERVICES NRBC x10^3 <0.01 10*3/L [facility] SERVICES GRAN MAT (NEUT) % 67.7 % [facility] SERVICES IMM GRAN % 0.20 % [facility] SERVICES LYMPH % 15.3 % [facility] SERVICES MONO % 7.5 % [facility] SERVICES EOS % 9.0 % [facility] SERVICES BASO % 0.3 % [facility] SERVICES GRAN MAT x10^3(ANC) 4.09 1.88 - 7.09 [facility] 10*3/uL SERVICES IMM GRAN x10^3 <0.03 0.00 - 0.06 [facility] 10*3/uL SERVICES LYMPH x10^3 0.92 (L) 1.32 - 3.29 [facility] 10*3/uL SERVICES MONO x10^3 0.45 0.33 - 0.92 [facility] 10*3/uL SERVICES EOS x10^3 0.54 (H) 0.03 - 0.39 [facility] 10*3/uL SERVICES BASO x10^3 <0.03 0.01 - 0.07 [facility] 10*3/uL SERVICES POLYCHROMASIA 2+ 2+ [facility] SCHISTOCYTES 1+ (A) [facility] Specimen Blood - VENOUS Performing Organization Address City/State/Zipcode Phone Number [facility] CLIA: [id number], [address], [place] [address] [facility] MAGNESIUM (10/08/2019 5:07 AM CDT) Pathologist Sig nature MAGNESIUM 1.9 1.7 - 2.4 mg/dL [facility] Specimen Blood - VENOUS Performing Organization Address City/State/Zipcode Phone Number [facility] CLRAYMON: [id number], [address], [place] [address] [facility] BASIC METABOLIC PANEL (NA, K, CL, CO2, GLUCOSE, BUN, CREATININE, CA) (10/08/2019 5:07 AM CDT) Pathologist Sig nature NA 146 (H) 135 - 145 [facility] mmol/L SERVICES K 3.5 3.5 - 5.0 [facility] mmol/L SERVICES CL 105 98 - 108 mmol/L [facility] CO2 TOTAL 34 (H) 23 - 31 mmol/L [facility] AGAP 7 2 - 16 [facility] BUN 34 (H) 7 - 23 mg/dL [facility] GLUCOSE 105 70 - 110 mg/dL [facility] CREATININE 0.83 0.50 - 1.04 [facility] mg/dL SERVICES CALCIUM 8.9 8.6 - 10.6 [facility] mg/dL SERVICES eGFR Calculation 75.8 mL/min/1.73m2 [facility] (Non- SERVICES Swedish) eGFR Calculation 91.8 mL/min/1.73m2 [facility] () SERVICES Specimen Blood - VENOUS Narrative Performed At Association of Glomerular Filtration Rate (GFR) and St aging [facility] of Kidney Disease* + + +------- ------ + | GFR (mL/min/1.73 m2) | With Kidney Damage | Wi thout Kidney Damage + + +------- ------ + | >90 | Stage one | Normal + + +------- ------ + | 60-89 | Stage two | Decreased GFR + + +------- ------ + | 30-59 | Stage three | Stage three + + +------- ------ + | 15-29 | Stage four | Stage four + + +------- ------ + | <15 (or dialysis) | Stage five | Stage five + + +------- ------ + *Each stage assumes the associated GFR level has been in effect for at least three months. Stages 1 to 5, wit h or without kidney disease, indicate chronic kidney disease. Notes: Determination of stages one and two (with eGFR >59mL/min/1.73 m2) requires estimation of kidney damag e for at least three months as defined by structural or func tional abnormalities of the kidney, manifested by either: Pathological abnormalities or Markers of kidney damage (including abnormalities in the composition of the blo od or urine or abnormalities in imaging tests) . Performing Organization Address City/[facility]/Zipcode Phone Number [facility] CLIA: [id number], [address] [place] [phone] [facility] HEPATIC FUNCTION PANEL ([id number]) (ALB,T.PRO,BILI T,BU/BC,ALT,AST,ALK PHOS) (10/08/2019 5:07 AM CDT) Pathologist Sig nature TOTAL BILI 0.8 0.1 - 1.1 mg/dL [facility] BILI UNCON 0.2 0.1 - 1.1 mg/dL [facility] BILI CONJ 0.0 0.0 - 0.3 mg/dL [facility] T PROTEIN 7.5 6.3 - 8.2 g/dL [facility] ALBUMIN 3.0 (L) 3.5 - 5.0 g/dL [facility] ALK PHOS 49 34 - 122 U/L [facility] ALTv 14 5 - 35 U/L [facility] AST(SGOT) 59 (H) 13 - 40 U/L [facility] Specimen Blood - VENOUS Performing Organization Address [facility] Phone Number [facility] CLIA: [id number], [address] [place] [phone] [facility] POCT GLUCOSE (AUTOMATED) (10/08/2019 12:21 AM CDT) Pathologist Sig nature POCT GLU 100 70 - 110 mg/dL [facility] Specimen Blood Performing Organization Address City/[facility] Phone Number [facility] CLIA: [id number], [address] [place] [address] [facility] POCT GLUCOSE (AUTOMATED) (10/07/2019 6:11 PM CDT) Pathologist Sig nature POCT GLU 106 70 - 110 mg/dL [facility] Specimen Blood Performing Organization Address [facility] Phone Number [facility] CLIA: [id number], [address] [place] [address] [facility] POCT GLUCOSE (AUTOMATED) (10/07/2019 11:50 AM CDT) Pathologist Sig nature POCT GLU 111 (H) 70 - 110 mg/dL [facility] Specimen Blood Performing Organization Address City/State/Zipcode Phone Number [facility] CLIA: [id number], [address], [place] [address] [facility] XR CHEST 1 VW (10/07/2019 10:40 AM CDT) Specimen Impressions Performed At PACS/VR/DOSE Moderate pulmonary edema with small bila teral pleural effusions. Given the patient's history of fever, an underlying in fectious process is not excluded. Narrative Performed At EXAM: XR CHEST 1 VW PACS/VR/DOSE HISTORY: SOB/fever COMPARISON: 10/04/2019. FINDINGS: Moderate pulmonary edema is grossly unch anged since the prior study with small bilateral pleural effusions. Given the patient's fevers, an underlying infectious process is not exc luded. No pneumothorax is seen. The tracheostomy tube terminates 3 cm above the nelson . An endogastric tube enters the stomach. The heart size is unchanged. No acute or aggressive bony lesions are identified. Procedure Note [facility] Radiant Results Inft User - 2019 11:22 AM CDT EXAM: XR CHEST 1 VW HISTORY: SOB/fever COMPARISON: 10/04/2019. FINDINGS: Moderate pulmonary edema is grossly unch anged since the prior study with small bilateral pleural effusions. Given the patient's fevers, an underlying infectious process is not exc luded. No pneumothorax is seen. The tracheostomy tube terminates 3 cm ab ove the nelson. An endogastric tube enters the stomach. The heart size is unchanged. No acute or aggressive bony lesions are identified. IMPRESSION Moderate pulmonary edema with small bila teral pleural effusions. Given the patient's history of fever, an underlying infectious process is not excluded. Performing Organization Address City/State/Zipcode Phone Number PACS/VR/DOSE POCT GLUCOSE (AUTOMATED) (10/07/2019 5:07 AM CDT) Pathologist Sig nature POCT GLU 121 (H) 70 - 110 mg/dL [facility] Specimen Blood Performing Organization Address City/[facility]/Zipcode Phone Number [facility] CLIA: [id number], [address], [place] [address] [facility] CBC WITH DIFFERENTIAL (10/07/2019 5:07 AM CDT) Pathologist Sig nature WBC 6.83 4.30 - 11.10 [facility] 10*3/L SERVICES RBC 3.52 (L) 3.93 - 5.25 [facility] 10*6/L SERVICES HGB 7.2 (L) 11.6 - 15.0 [facility] g/dL SERVICES HCT 29.1 (L) 35.7 - 45.2 % [facility] MCV 82.7 80.6 - 95.5 fL [facility] MCH 20.5 (L) 25.9 - 32.8 pg [facility] MCHC 24.7 (L) 31.6 - 35.1 [facility] g/dL SERVICES RDW-SD 89.1 (H) 39.0 - 49.9 fL [facility] RDW-CV 31.0 (H) 12.0 - 15.5 % [facility] PLT 566 (H) 166 - 358 [facility] 10*3/L SERVICES MPV 10.5 9.5 - 12.9 fL [facility] NRBC/100 WBC 0.0 0.0 - 10.0 /100 [facility] WBCs SERVICES NRBC x10^3 <0.01 10*3/L [facility] GRAN MAT (NEUT) % 72.0 % [facility] IMM GRAN % 0.30 % [facility] LYMPH % 13.8 % [facility] MONO % 5.7 % [facility] EOS % 7.9 % [facility] BASO % 0.3 % [facility] GRAN MAT x10^3(ANC) 4.92 1.88 - 7.09 [facility] 10*3/uL SERVICES IMM GRAN x10^3 <0.03 0.00 - 0.06 [facility] 10*3/uL SERVICES LYMPH x10^3 0.94 (L) 1.32 - 3.29 [facility] 10*3/uL SERVICES MONO x10^3 0.39 0.33 - 0.92 [facility] 10*3/uL SERVICES EOS x10^3 0.54 (H) 0.03 - 0.39 [facility] 10*3/uL SERVICES BASO x10^3 <0.03 0.01 - 0.07 [facility] 10*3/uL SERVICES ELLIPTO/OVAL 2+ (A) (none) [facility] POLYCHROMASIA 2+ 2+ [facility] SCHISTOCYTES 1+ (A) [facility] Specimen Blood - VENOUS Performing Organization Address City/State/Zipcode Phone Number [facility] CLIA: [id number], [address], [place] [address] [facility] BASIC METABOLIC PANEL (NA, K, CL, CO2, GLUCOSE, BUN, CREATININE, CA) (10/07/2019 5:07 AM CDT) [facility] NA 144 135 - 145 [facility] mmol/L SERVICES K 3.8 3.5 - 5.0 [facility] mmol/L SERVICES CL 105 98 - 108 mmol/L [facility] CO2 TOTAL 34 (H) 23 - 31 mmol/L [facility] AGAP 5 2 - 16 [facility] BUN 36 (H) 7 - 23 mg/dL [facility] GLUCOSE 111 (H) 70 - 110 mg/dL [facility] CREATININE 0.85 0.50 - 1.04 [facility] mg/dL SERVICES CALCIUM 8.8 8.6 - 10.6 [facility] mg/dL SERVICES eGFR Calculation 73.7 mL/min/1.73m2 [facility] (Non- SERVICES Swedish) eGFR Calculation 89.3 mL/min/1.73m2 [facility] () SERVICES Specimen Blood - VENOUS Narrative Performed At Association of Glomerular Filtration Rate (GFR) and St aging [facility] of Kidney Disease* + + +------- ------ + | GFR (mL/min/1.73 m2) | With Kidney Damage | Wi thout Kidney Damage + + +------- ------ + | >90 | Stage one | Normal + + +------- ------ + | 60-89 | Stage two | Decreased GFR + + +------- ------ + | 30-59 | Stage three | Stage three + + +------- ------ + | 15-29 | Stage four | Stage four + + +------- ------ + | <15 (or dialysis) | Stage five | Stage five + + +------- ------ + *Each stage assumes the associated GFR level has been in effect for at least three months. Stages 1 to 5, wit h or without kidney disease, indicate chronic kidney disease. Notes: Determination of stages one and two (with eGFR >59mL/min/1.73 m2) requires estimation of kidney damag e for at least three months as defined by structural or func tional abnormalities of the kidney, manifested by either: Pathological abnormalities or Markers of kidney damage (including abnormalities in the composition of the blo od or urine or abnormalities in imaging tests) . Performing Organization Address City/[facility]/Zipcode Phone Number [facility] CLIA: [id number], [address] [place] [phone] [facility] MAGNESIUM (10/07/2019 5:07 AM CDT) Pathologist Sig nature MAGNESIUM 2.2 1.7 - 2.4 mg/dL [facility] Specimen Blood - VENOUS Performing Organization Address [facility] Phone Number [facility] CLIA: [id number], [address] [place] [phone] [facility] POCT GLUCOSE (AUTOMATED) (10/06/2019 10:56 PM CDT) Pathologist Sig nature POCT GLU 108 70 - 110 mg/dL [facility] Specimen Blood Performing Organization Address [facility] Phone Number [facility] CLIA: [id number], [address] [place] [address] [facility] POCT GLUCOSE (AUTOMATED) (10/06/2019 6:36 PM CDT) Pathologist Sig nature POCT GLU 105 70 - 110 mg/dL [facility] Specimen Blood Performing Organization Address [facility] Phone Number [facility] CLIA: [id number], [address] [place] [address] [facility] US ABDOMEN LIMITED (10/06/2019 1:25 PM CDT) Specimen Impressions Performed At PACS/VR/DOSE Hydropic gallbladder with cholelithiasis and without p ericholecystic fluid, wall thickening, or sonographic Infante's sign which makes acute cholecystitis less likely. Additionally, the common bile duct is dilated measuring up to 8 mm in diameter, which raises concern for choledocholithiasis. An MRI of the abdom en with MRCP would be useful for further evaluation. Additionally, the aforementioned MRI of the abdomen could also provide further evaluation for potential acute cholecystitis. If clinical concern for acute cholecystitis is of immediate clinical ana rn, a HIDA scan would provide a more specific examination for acute cholecystitis. Preliminary Report Dictated by Resident: Ortiz Ramirez I, Sky Jacobs MD., have reviewed this study and agree with the above report. Narrative Performed At RIGHT UPPER QUADRANT ULTRASOUND PACS/VR/DOSE HISTORY: fever RUQ US COMPARISON: None. TECHNIQUE: Transabdominal grayscale and color Doppler ultrasound examination of the abdomen with emphasis on the liver and gallbladder was performed. Cine clips were then generate d. FINDINGS: LIVER: Hepatomegaly (28.4 cm). And echo-texture. No fo cassandra hepatic lesion. Normal hepatopetal flow within the kamlesh n portal vein. GALLBLADDER: Round and angulated hyperec hoic foci that demonstrate posterior acoustic shadowing are seen wi thin the gallbladder lumen, consistent with cholelithiasis. No Pericholecystic flu id. The gallbladder is mildly hydropic, measuring up to 10 c m in length. No gallbladder wall thickening. No sonographic Infanet's sign. The common b ile duct measures 8 mm. PANCREAS: Incompletely visualized due to overlying bowel gas. RIGHT KIDNEY: The visualized portion of the right kidn ey is unremarkable. Procedure Note [facility], Radiant Results Inft User - 2019 3:04 PM CDT RIGHT UPPER QUADRANT ULTRASOUND HISTORY: fever RUQ US COMPARISON: None. TECHNIQUE: Transabdominal grayscale and color Doppler ultrasound examination of the abdomen with emphasis on the liver and gallbladder was performed. Cine clips were then generate d. FINDINGS: LIVER: Hepatomegaly (28.4 cm). And echo- texture. No focal hepatic lesion. Normal hepatopetal flow within the main portal vein. GALLBLADDER: Round and angulated hyperec hoic foci that demonstrate posterior acoustic shadowing are seen wi thin the gallbladder lumen, consistent with cholelithiasis. No Peric holecystic fluid. The gallbladder is mildly hydropic, measuring up to 10 c m in length. No gallbladder wall thickening. No sonographic Infante's sign . The common bile duct measures 8 mm. PANCREAS: Incompletely visualized due to overlying bowel gas. RIGHT KIDNEY: The visualized portion of the right kidney is unremarkable. IMPRESSION Hydropic gallbladder with cholelithiasis and without pericholecystic fluid, wall thickening, or sonographic Infante's sign which makes acute cholecystitis less likely. Additionally, the common bile duct is dilated measuring up to 8 mm in diameter, which raises concern for choledocholithiasis. An MRI of the abdom en with MRCP would be useful for further evaluation. Additionally, the aforementioned MRI of the abdomen could also provide further evaluation for potential acute c holecystitis. If clinical concern for acute cholecystitis is of immediate clinical concern, a HIDA scan would provide a more specific examination for acute cholecystitis. Preliminary Report Dictated by Resident: Ortiz Ramirez I, Sky Jacobs MD., have reviewed t his study and agree with the above report. Performing Organization Address [facility] Phone Number PACS/VR/DOSE POCT GLUCOSE (AUTOMATED) (10/06/2019 1:23 PM CDT) Pathologist Sig [facility] POCT GLU 131 (H) 70 - 110 mg/dL [facility] Specimen Blood Performing Organization Address [facility] Phone Number [facility] CLIA: [id number], [address] [place], [place] [id number] [facility] POCT GLUCOSE (AUTOMATED) (10/06/2019 4:54 AM CDT) Pathologist Sig [facility] POCT GLU 131 (H) 70 - 110 mg/dL [facility] Specimen Blood Performing Organization Address [facility] Phone Number [facility] CLIA: [id number], [address] [place], [place] [id number] [facility] HEPATIC FUNCTION PANEL ([id number]) (ALB,T.PRO,BILI T,BU/BC,ALT,AST,ALK PHOS) (10/06/2019 3:49 AM CDT) Pathologist Sig nature TOTAL BILI 0.8 0.1 - 1.1 mg/dL [facility] BILI UNCON 0.2 0.1 - 1.1 mg/dL [facility] BILI CONJ 0.0 0.0 - 0.3 mg/dL [facility] T PROTEIN 7.2 6.3 - 8.2 g/dL [facility] ALBUMIN 3.0 (L) 3.5 - 5.0 g/dL [facility] ALK PHOS 51 34 - 122 U/L [facility] ALTv 12 5 - 35 U/L [facility] AST(SGOT) 72 (H) 13 - 40 U/L [facility] Specimen Blood - VENOUS Performing Organization Address City/State/Zipcode Phone Number [facility] CLIA: [id number], [address], [place] [address] [facility] CBC WITH DIFFERENTIAL (10/06/2019 3:49 AM CDT) [facility] WBC 7.67 4.30 - 11.10 [facility] 10*3/L SERVICES RBC 3.58 (L) 3.93 - 5.25 [facility] 10*6/L SERVICES HGB 7.2 (L) 11.6 - 15.0 [facility] g/dL SERVICES HCT 29.8 (L) 35.7 - 45.2 % [facility] MCV 83.2 80.6 - 95.5 fL [facility] MCH 20.1 (L) 25.9 - 32.8 pg [facility] MCHC 24.2 (L) 31.6 - 35.1 [facility] g/dL SERVICES RDW-SD 88.6 (H) 39.0 - 49.9 fL [facility] RDW-CV 30.9 (H) 12.0 - 15.5 % [facility] PLT 606 (H) 166 - 358 [facility] 10*3/L SERVICES MPV 10.5 9.5 - 12.9 fL [facility] NRBC/100 WBC 0.0 0.0 - 10.0 /100 [facility] WBCs SERVICES NRBC x10^3 <0.01 10*3/L [facility] GRAN MAT (NEUT) % 74.8 % [facility] IMM GRAN % 0.30 % [facility] LYMPH % 15.0 % [facility] MONO % 7.3 % [facility] EOS % 2.5 % [facility] BASO % 0.1 % [facility] GRAN MAT x10^3(ANC) 5.74 1.88 - 7.09 [facility] 10*3/uL SERVICES IMM GRAN x10^3 <0.03 0.00 - 0.06 [facility] 10*3/uL SERVICES LYMPH x10^3 1.15 (L) 1.32 - 3.29 [facility] 10*3/uL SERVICES MONO x10^3 0.56 0.33 - 0.92 [facility] 10*3/uL SERVICES EOS x10^3 0.19 0.03 - 0.39 [facility] 10*3/uL SERVICES BASO x10^3 <0.03 0.01 - 0.07 [facility] 10*3/uL SERVICES ELLIPTO/OVAL 2+ (A) (none) [facility] POLYCHROMASIA 2+ 2+ [facility] Specimen Blood - VENOUS Performing Organization Address City/State/Zipcode Phone Number [facility] CLIA: [id number], [address] [place] [phone] [facility] MAGNESIUM (10/06/2019 3:49 AM CDT) Pathologist Sig nature MAGNESIUM 2.5 (H) 1.7 - 2.4 mg/dL [facility] Specimen Blood - VENOUS Performing Organization Address City/[facility]/Zipcode Phone Number [facility] CLIA: [id number], [address] [place] [phone] [facility] POCT GLUCOSE (AUTOMATED) (10/05/2019 11:56 PM CDT) Pathologist Sig nature POCT GLU 120 (H) 70 - 110 mg/dL [facility] Specimen Blood Performing Organization Address City/[facility]/Zipcode Phone Number [facility] CLIA: [id number], [address] [place] [address] [facility] SPUTUM CULTURE (10/05/2019 10:53 PM CDT) SPUTUM CULTURE 1+ Citrobacter koseri [facility] Gram stain No Organisms seen [facility] Gram stain Occasional (Rare) [facility] PMNs or Mononuclear SERVICES cells observed Gram stain Few Epithelial cells [facility] Specimen Sputum - ENDOTRACHEAL Organism Antibiotic Method Susceptibility Citrobacter koseri Cefazolin SUSCEPTIBILITY TESTING <=4: S usceptible Citrobacter koseri Cefotaxime SUSCEPTIBILITY TESTING <=1: S usceptible Citrobacter koseri Ciprofloxacin SUSCEPTIBILITY TESTING <=0.25 : Susceptible Citrobacter koseri Ertapenem SUSCEPTIBILITY TESTING <=0.5: Susceptible Citrobacter koseri Gentamicin SUSCEPTIBILITY TESTING <=1: S usceptible Citrobacter koseri Levofloxacin SUSCEPTIBILITY TESTING <=0.12 : Susceptible Citrobacter koseri Piperacillin/Tazobactam SUSCEPTIBILITY TESTIN G <=4: Susceptible Citrobacter koseri Trimethoprim/Sulfametho SUSCEPTIBILITY TESTIN G <=20: Susceptible xazole Comment: Resistance to 3rd generation Ce phalosporins in Enterobacter, Citrobacter and Serratia may develop rapidly during prol onged therapy. If such therapy is being considered, consultation with infectious disease service may be warranted. Performing Organization Address City/[facility] Phone Number [facility] CLIA: [id number], [address] [place] [address] [facility] URINALYSIS (10/05/2019 10:47 PM CDT) Pathologist Sig nature APPEARANCE Hazy (A) Clear [facility] COLOR Yellow Yellow [facility] PH 7.0 4.8 - 8.0 [facility] SP GRAVITY 1.014 1.003 - 1.030 [facility] GLU U QUAL Normal Normal [facility] BLOOD Negative Negative [facility] KETONES Negative Negative [facility] PROTEIN Negative Negative [facility] UROBILIN 4.0 mg/dL (A) Normal [facility] BILIRUBIN Negative Negative [facility] NITRITE Negative Negative [facility] LEUK SKY Negative Negative [facility] RBC/HPF 1 0 - 3 HPF [facility] WBC/HPF 4 0 - 5 HPF [facility] BACTERIA Negative Negative [facility] AMORPHOUS Rare Rare HPF [facility] SQ EPITH <1 <=2 HPF [facility] ASCORBIC ACID Negative [facility] Specimen Urine - URINE, CATHETERIZED Performing Organization Address City/[facility] Phone Number [facility] CLIA: [id number], [address] [place] [address] [facility] [facility] URINE CULTURE (10/05/2019 10:45 PM CDT) [facility] nature URINE CULTURE No aerobic growth [facility] (< 1000 CFU/mL) SERVICES Specimen Urine - URINE, CATHETERIZED Performing Organization Address City/[facility] Phone Number [facility] CLIA: [id number], [address] [place], [place] [address] [facility] BLOOD CULTURE SCREEN (10/05/2019 10:25 PM CDT) Blood No organisms isolated No growth [facility] Culture-Aerobic Comment: SERVICES Previous preliminary verifie d result was Culture In Progress on 10/06/2019 at 0301 CDT Previous preliminary verifie d result was No growth at 24 hours on 10/07/2019 at 0001 CDT Previous preliminary verifie d result was No growth at 48 hours on 10/08/2019 at 0001 CDT Previous preliminary verifie d result was No growth at 72 hours on 10/09/2019 at 0003 CDT Blood No organisms isolated No growth [facility] Culture-Anaerobic Comment: SERVICES Previous preliminary verifie d result was Culture In Progress on 10/06/2019 at 0301 CDT Previous preliminary verifie d result was No growth at 24 hours on 10/07/2019 at 0001 CDT Previous preliminary verifie d result was No growth at 48 hours on 10/08/2019 at 0001 CDT Previous preliminary verifie d result was No growth at 72 hours on 10/09/2019 at 0003 CDT Specimen Blood - ARM, RIGHT Performing Organization Address City/State/Zipcode Phone Number [facility] CLIA: [id number], [address] [place] [phone] [facility] BLOOD CULTURE SCREEN (10/05/2019 10:24 PM CDT) [facility] Signature Blood No organisms isolated No growth [facility] Culture-Aerobic Comment: SERVICES Previous preliminary verifie d result was Culture In Progress on 10/06/2019 at 0301 CDT Previous preliminary verifie d result was No growth at 24 hours on 10/07/2019 at 0001 CDT Previous preliminary verifie d result was No growth at 48 hours on 10/08/2019 at 0001 CDT Previous preliminary verifie d result was No growth at 72 hours on 10/09/2019 at 0003 CDT Blood No organisms isolated No growth [facility] Culture-Anaerobic Comment: SERVICES Previous preliminary verifie d result was Culture In Progress on 10/06/2019 at 0301 CDT Previous preliminary verifie d result was No growth at 24 hours on 10/07/2019 at 0001 CDT Previous preliminary verifie d result was No growth at 48 hours on 10/08/2019 at 0001 CDT Previous preliminary verifie d result was No growth at 72 hours on 10/09/2019 at 0003 CDT Specimen Blood - ARM, LEFT Performing Organization Address City/[facility] Phone Number [facility] CLIA: [id number], [address] [place] [phone] [facility] POCT GLUCOSE (AUTOMATED) (10/05/2019 5:55 PM CDT) Pathologist Sig nature POCT GLU 125 (H) 70 - 110 mg/dL [facility] Specimen Blood Performing Organization Address [facility] Phone Number [facility] CLIA: [id number], [address] [place] [address] [facility] POCT GLUCOSE (AUTOMATED) (10/05/2019 11:37 AM CDT) Pathologist Sig nature POCT GLU 129 (H) 70 - 110 mg/dL [facility] Specimen Blood Performing Organization Address [facility] Phone Number [facility] CLIA: [id number], [address] [place] [address] [facility] FREE T4 (10/05/2019 10:56 AM CDT) Pathologist Sig nature FREE T4 2.29 (H) 0.78 - 2.20 ng/dL: [facility] SERVIC ES Specimen Blood - LINE, VENOUS Performing Organization Address [facility] Phone Number [facility] CLIA: [id number], [address] [place] [phone] [facility] POCT GLUCOSE (AUTOMATED) (10/05/2019 5:34 AM CDT) Pathologist Sig nature POCT GLU 92 70 - 110 mg/dL [facility] Specimen Blood Performing Organization Address [facility] Phone Number [facility] CLIA: [id number], [address] [place] [address] [facility] THYROID STIMULATING HORMONE (10/05/2019 2:40 AM CDT) Pathologist Sig nature TSH 1.45Comment: Biotin 0.45 - 4.70 [facility] has been reported mIU/L SERVICES to cause a negative bias, interpret results relative to patient's use of biotin. Specimen Blood - ARM, RIGHT Performing Organization Address City/State/Zipcode Phone Number [facility] CLIA: [id number], [address] [place] [address] [facility] BASIC METABOLIC PANEL (NA, K, CL, CO2, GLUCOSE, BUN, CREATININE, CA) (10/05/2019 2:40 AM CDT) NA 146 (H) 135 - 145 [facility] mmol/L SERVICES K 3.8 3.5 - 5.0 [facility] mmol/L SERVICES CL 102 98 - 108 mmol/L [facility] SERVICES CO2 TOTAL 36 (H) 23 - 31 mmol/L [facility] SERVICES AGAP 8 2 - 16 [facility] SERVICES BUN 52 (H) 7 - 23 mg/dL [facility] SERVICES GLUCOSE 100 70 - 110 mg/dL [facility] SERVICES CREATININE 1.52 (H) 0.50 - 1.04 [facility] mg/dL SERVICES CALCIUM 9.0 8.6 - 10.6 [facility] mg/dL SERVICES eGFR Calculation 37.7 mL/min/1.73m2 [facility] (Non- SERVICES Swedish) eGFR Calculation 45.7 mL/min/1.73m2 [facility] () SERVICES Specimen Blood - ARM, RIGHT Narrative Performed At Association of Glomerular Filtration Rate (GFR) and St aging [facility] SERVICES of Kidney Disease* + + +------- ------ + | GFR (mL/min/1.73 m2) | With Kidney Damage | Wi thout Kidney Damage + + +------- ------ + | >90 | Stage one | Normal + + +------- ------ + | 60-89 | Stage two | Decreased GFR + + +------- ------ + | 30-59 | Stage three | Stage three + + +------- ------ + | 15-29 | Stage four | Stage four + + +------- ------ + | <15 (or dialysis) | Stage five | Stage five + + +------- ------ + *Each stage assumes the associated GFR level has been in effect for at least three months. Stages 1 to 5, wit h or without kidney disease, indicate chronic kidney disease. Notes: Determination of stages one and two (with eGFR >59mL/min/1.73 m2) requires estimation of kidney damag e for at least three months as defined by structural or func tional abnormalities of the kidney, manifested by either: Pathological abnormalities or Markers of kidney damage (including abnormalities in the composition of the blo od or urine or abnormalities in imaging tests) . Performing Organization Address City/[facility]/Zipcode Phone Number [facility] CLIA: [id number], [address] [place] [phone] [facility] MAGNESIUM (10/05/2019 2:40 AM CDT) Pathologist Sig nature MAGNESIUM 2.4 1.7 - 2.4 mg/dL [facility] SERVICES Specimen Blood - ARM, RIGHT Performing Organization Address [facility] Phone Number [facility] CLIA: [id number], [address] [place] [phone] [facility] POCT GLUCOSE (AUTOMATED) (10/04/2019 11:26 PM CDT) Pathologist Sig nature POCT GLU 92 70 - 110 mg/dL [facility] Specimen Blood Performing Organization Address [facility] Phone Number [facility] CLIA: [id number], [address] [place] [address] [facility] POCT GLUCOSE (AUTOMATED) (10/04/2019 6:17 PM CDT) Pathologist Sig nature POCT GLU 99 70 - 110 mg/dL [facility] Specimen Blood Performing Organization Address [facility] Phone Number [facility] CLIA: [id number], [address] [place] [address] [facility] Chest 1 View (10/04/2019 3:50 PM CDT) Specimen Impressions Performed At PACS/VR/DOSE Interval worsening of diffuse bilateral reticulonodular and confluent opacities suggesting pulmonary alveolar and interstitial edema, infection/aspiration is also possible. Bilateral pleural effusions. Preliminary Report Dictated by Resident: Marjan Li MD., have reviewed this study and agree with the above report. Narrative Performed At EXAM: XR CHEST 1 VW PACS/VR/DOSE HISTORY: s/p tracheostomy COMPARISON: Series of chest radiographs latest is dated 09/30/2019 FINDINGS: The tracheostomy tube terminates 3.2 cm above the leve l of the nelson. The nasogastric tube traverses the thorax in to the abdomen and terminates outside the field of view. Bilateral diffuse reticulonodular opacities are noted, progressed since the most recent radiograph dated 09/30/2019. Patchy airspace opacities also noted in the bilateral perihilar region suggesting pulmonary alveolar edema. The bilateral lower lung hirsch a re outside the field of view however bilateral pleural effusions are appreciated. C onfluent left lower lung airspace opacities also noted. Cardiomegaly is redemonstrated. Procedure Note [facility], Radiant Results Inft User - 2019 5:39 PM CDT EXAM: XR CHEST 1 VW HISTORY: s/p tracheostomy COMPARISON: Series of chest radiographs latest is dated 09/30/2019 FINDINGS: The tracheostomy tube terminates 3.2 cm above the level of the nelson. The nasogastric tube traverses the thorax in to the abdomen and terminates outside the field of view. Bilateral diffuse reticulonodular opacit ies are noted, progressed since the most recent radiograph dated 09/30/2019. Patchy airspace opacities also noted in the bilateral perihilar region suggesting pulmonary alveolar edema. The bilateral lower lung hirsch a re outside the field of view however bilateral pleural effusions are appreciated. Confluent left lower lung airspace opacities also noted. Cardiomegaly is redemonstrated. IMPRESSION Interval worsening of diffuse bilateral reticulonodular and confluent opacities suggesting pulmonary alveolar and interstitial edema, infection/aspiration is also possible. Bilateral pleural effusions. Preliminary Report Dictated by Resident: Marija Lopes I, Marjan Ly MD., have reviewed this study and agree with the above report. Performing Organization Address City/State/Zipcode Phone Number PACS/VR/DOSE CBC WITH DIFFERENTIAL (10/04/2019 6:42 AM CDT) WBC 8.96 4.30 - 11.10 [facility] 10*3/L SERVICES RBC 3.77 (L) 3.93 - 5.25 [facility] 10*6/L SERVICES HGB 7.5 (L) 11.6 - 15.0 [facility] g/dL SERVICES HCT 31.5 (L) 35.7 - 45.2 % [facility] SERVICES MCV 83.6 80.6 - 95.5 fL [facility] SERVICES MCH 19.9 (L) 25.9 - 32.8 pg [facility] SERVICES MCHC 23.8 (L) 31.6 - 35.1 [facility] g/dL SERVICES RDW-SD 88.9 (H) 39.0 - 49.9 fL [facility] SERVICES RDW-CV 31.0 (H) 12.0 - 15.5 % [facility] SERVICES PLT 644 (H) 166 - 358 [facility] 10*3/L SERVICES MPV 10.4 9.5 - 12.9 fL [facility] SERVICES NRBC/100 WBC 0.0 0.0 - 10.0 [facility] /100 WBCs SERVICES NRBC x10^3 <0.01 10*3/L [facility] GRAN MAT (NEUT) % 75.2 % [facility] IMM GRAN % 0.40 % [facility] LYMPH % 11.7 % [facility] MONO % 5.9 % [facility] EOS % 6.6 % [facility] BASO % 0.2 % [facility] GRAN MAT x10^3(ANC) 6.73 1.88 - 7.09 [facility] 10*3/uL SERVICES IMM GRAN x10^3 0.04 0.00 - 0.06 [facility] 10*3/uL SERVICES LYMPH x10^3 1.05 (L) 1.32 - 3.29 [facility] 10*3/uL SERVICES MONO x10^3 0.53 0.33 - 0.92 [facility] 10*3/uL SERVICES EOS x10^3 0.59 (H) 0.03 - 0.39 [facility] 10*3/uL SERVICES BASO x10^3 <0.03 0.01 - 0.07 [facility] 10*3/uL SERVICES BASO STIPPLING Present (A) [facility] POLYCHROMASIA 2+ 2+ [facility] SCHISTOCYTES 1+ (A) [facility] Specimen Blood - ARTERIAL Performing Organization Address City/State/Zipcode Phone Number [facility] CLIA: [id number], [address], [place] [address] [facility] MAGNESIUM (10/04/2019 6:30 AM CDT) Pathologist Sig nature MAGNESIUM 2.5 (H) 1.7 - 2.4 mg/dL [facility] SERVICES Specimen Blood - VENOUS Performing Organization Address City/State/Zipcode Phone Number [facility] CLIA: [id number], [address], [place] [address] [facility] BASIC METABOLIC PANEL (NA, K, CL, CO2, GLUCOSE, BUN, CREATININE, CA) (10/04/2019 6:30 AM CDT) NA 146 (H) 135 - 145 [facility] mmol/L SERVICES K 4.4Comment: 3.5 - 5.0 [facility] Slight hemolysis mmol/L SERVICES CL 102 98 - 108 [facility] mmol/L SERVICES CO2 TOTAL 37 (H) 23 - 31 [facility] mmol/L SERVICES AGAP 7 2 - 16 [facility] SERVICES BUN 46 (H)Comment: 7 - 23 mg/dL [facility] Slight hemolysis SERVICES GLUCOSE 101 70 - 110 [facility] mg/dL SERVICES CREATININE 1.27 (H) 0.50 - 1.04 [facility] mg/dL SERVICES CALCIUM 9.0 8.6 - 10.6 [facility] mg/dL SERVICES eGFR Calculation 46.4 mL/min/1.73m2 [facility] (Non- SERVICES Swedish) eGFR Calculation 56.2 mL/min/1.73m2 [facility] () SERVICES Specimen Blood - VENOUS Narrative Performed At Association of Glomerular Filtration Rate (GFR) and St aging [facility] SERVICES of Kidney Disease* + + +------- ------ + | GFR (mL/min/1.73 m2) | With Kidney Damage | Wi devonteout Kidney Damage + + +------- ------ + | >90 | Stage one | Normal + + +------- ------ + | 60-89 | Stage two | Decreased GFR + + +------- ------ + | 30-59 | Stage three | Stage three + + +------- ------ + | 15-29 | Stage four | Stage four + + +------- ------ + | <15 (or dialysis) | Stage five | Stage five + + +------- ------ + *Each stage assumes the associated GFR level has been in effect for at least three months. Stages 1 to 5, wit h or without kidney disease, indicate chronic kidney disease. Notes: Determination of stages one and two (with eGFR >59mL/min/1.73 m2) requires estimation of kidney damag e for at least three months as defined by structural or func tional abnormalities of the kidney, manifested by either: Pathological abnormalities or Markers of kidney damage (including abnormalities in the composition of the blo od or urine or abnormalities in imaging tests) . Performing Organization Address City/[facility] Phone Number [facility] CLIA: [id number], [address] [place] [phone] [facility] POCT GLUCOSE (AUTOMATED) (10/04/2019 6:20 AM CDT) Pathologist Sig nature POCT GLU 116 (H) 70 - 110 mg/dL [facility] Specimen Blood Performing Organization Address [facility] Phone Number [facility] CLIA: [id number], [address] [place] [address] [facility] POCT GLUCOSE (AUTOMATED) (10/04/2019 12:19 AM CDT) Pathologist Sig nature POCT GLU 100 70 - 110 mg/dL [facility] Specimen Blood Performing Organization Address [facility] Phone Number [facility] CLIA: [id number], [address] [place] [address] [facility] POCT GLUCOSE (AUTOMATED) (10/03/2019 4:55 PM CDT) Pathologist Sig nature POCT GLU 96 70 - 110 mg/dL [facility] Specimen Blood Performing Organization Address [facility] Phone Number [facility] CLIA: [id number], [address] [place] [address] [facility] MAGNESIUM (10/03/2019 3:07 AM CDT) Pathologist Sig nature MAGNESIUM 2.6 (H) 1.7 - 2.4 mg/dL [facility] SERVICES Specimen Blood - LINE, VENOUS Performing Organization Address [facility] Phone Number [facility] CLIA: [id number], [address] [place] [phone] [facility] BASIC METABOLIC PANEL (NA, K, CL, CO2, GLUCOSE, BUN, CREATININE, CA) (10/03/2019 3:07 AM CDT) NA 148 (H) 135 - 145 [facility] mmol/L SERVICES K 3.8 3.5 - 5.0 [facility] mmol/L SERVICES CL 104 98 - 108 mmol/L [facility] SERVICES CO2 TOTAL 37 (H) 23 - 31 mmol/L [facility] SERVICES AGAP 7 2 - 16 [facility] SERVICES BUN 41 (H) 7 - 23 mg/dL [facility] SERVICES GLUCOSE 92 70 - 110 mg/dL [facility] SERVICES CREATININE 1.20 (H) 0.50 - 1.04 [facility] mg/dL SERVICES CALCIUM 9.1 8.6 - 10.6 [facility] mg/dL SERVICES eGFR Calculation 49.5 mL/min/1.73m2 [facility] (Non- SERVICES Swedish) eGFR Calculation 60.0 mL/min/1.73m2 [facility] () SERVICES Specimen Blood - LINE, VENOUS Narrative Performed At Association of Glomerular Filtration Rate (GFR) and St aging [facility] SERVICES of Kidney Disease* + + +------- ------ + | GFR (mL/min/1.73 m2) | With Kidney Damage | Wi thout Kidney Damage + + +------- ------ + | >90 | Stage one | Normal + + +------- ------ + | 60-89 | Stage two | Decreased GFR + + +------- ------ + | 30-59 | Stage three | Stage three + + +------- ------ + | 15-29 | Stage four | Stage four + + +------- ------ + | <15 (or dialysis) | Stage five | Stage five + + +------- ------ + *Each stage assumes the associated GFR level has been in effect for at least three months. Stages 1 to 5, wit h or without kidney disease, indicate chronic kidney disease. Notes: Determination of stages one and two (with eGFR >59mL/min/1.73 m2) requires estimation of kidney damag e for at least three months as defined by structural or func tional abnormalities of the kidney, manifested by either: Pathological abnormalities or Markers of kidney damage (including abnormalities in the composition of the blo od or urine or abnormalities in imaging tests) . Performing Organization Address City/State/Zipcode Phone Number [facility] CLIA: [id number], [address], [place] [address] [facility] POCT GLUCOSE (AUTOMATED) (10/03/2019 12:47 AM CDT) Pathologist Sig nature POCT GLU 95 70 - 110 mg/dL [facility] Specimen Blood Performing Organization Address City/[facility]/Zipcode Phone Number [facility] CLIA: [id number], [address], [place] [address] [facility] POCT GLUCOSE (AUTOMATED) (10/02/2019 5:00 PM CDT) Pathologist Sig nature POCT GLU 98 70 - 110 mg/dL [facility] Specimen Blood Performing Organization Address [facility] Phone Number [facility] CLIA: [id number], [address], [place] [address] [facility] XR KUB (10/02/2019 4:19 PM CDT) Specimen Impressions Performed At PACS/VR/DOSE Enteric tube with tip in the gastric bod y. Preliminary Report Dictated by Resident: Karl Osborne MD., have reviewed this study and agree with the above report. Narrative Performed At EXAM: XR KUB PACS/VR/DOSE HISTORY: NG tube COMPARISON: Abdominal radiograph 10/02/19 FINDINGS: The enteric tube terminates over the gas tric body. The bowel gas pattern is unremarkable. No abnormal calcifications or radiopaque stones are identified. Healed/healing left rib fractures. Bilateral layering pleural effusions and cardiomegaly. Procedure Note [facility], Radiant Results Inft User - 2019 10:45 PM CDT EXAM: XR KUB HISTORY: NG tube COMPARISON: Abdominal radiograph 10/02/19 FINDINGS: The enteric tube terminates over the gas tric body. The bowel gas pattern is unremarkable. No abnormal calcifications or radiopaque stones are identified. Healed/healing left rib fractures. Bilateral layering pleural effusions and cardiomegaly. IMPRESSION Enteric tube with tip in the gastric bod y. Preliminary Report Dictated by Resident: Karl Osborne MD., have reviewed th is study and agree with the above report. Performing Organization Address [facility] Phone Number PACS/VR/DOSE Acute Care Arterial Blood Gas. (10/02/2019 2:11 PM CDT) Pathologist Sig nature PH 7.44 7.35 - 7.45 [facility] PCO2 60 (H) 35 - 45 mmHg [facility] PO2 69 (L) 80 - 100 mmHg [facility] HCO3 40 (H) 22 - 26 mEq/L [facility] BE 14.4 (H) -3.0 - 3.0 mEq/L [facility] Specimen Blood - ARM, LEFT Performing Organization Address City/[facility]/Zipcode Phone Number [facility] CLIA: [id number], [address] [place] [phone] [facility] POCT GLUCOSE (AUTOMATED) (10/02/2019 12:53 PM CDT) [facility] nature POCT GLU 101 70 - 110 mg/dL [facility] Specimen Blood Performing Organization Address City/[facility]/Zipcode Phone Number [facility] CLIA: [id number], [address] [place] [address] [facility] XR KUB (10/02/2019 11:34 AM CDT) Specimen Impressions Performed At PACS/VR/DOSE The NG tube is likely within the proximal stomach and its sidehole at the level of GE junction. Further advancemen t is recommended. Preliminary Report Dictated by Resident: Neto Lee I, Jose Clements MD., have reviewed this study and agree with the above report. Narrative Performed At EXAM: XR KUB PACS/VR/DOSE HISTORY: 43 years-old Female presenting with NG tube placement COMPARISON: Abdominal radiograph 10/02/19. FINDINGS: The submitted radiograph is technically limited due po or penetration caused by the large body habitus. The NG tube tip projects over the proxim al stomach, with its sidehole likely at the level of GE junction.a Enlarged globular cardiac shadow is note d. Bilateral layering pleural effusion are noted. Procedure Note [facility], Radiant Results Inft User - 2019 2:26 PM CDT EXAM: XR KUB HISTORY: 43 years-old Female presenting with NG tube placement COMPARISON: Abdominal radiograph 10/02/19. FINDINGS: The submitted radiograph is technically limited due poor penetration caused by the large body habitus. The NG tube tip projects over the proxim al stomach, with its sidehole likely at the level of GE junction.a Enlarged globular cardiac shadow is note d. Bilateral layering pleural effusion are noted. IMPRESSION The NG tube is likely within the proxima l stomach and its sidehole at the level of GE junction. Further advancemen t is recommended. Preliminary Report Dictated by Resident: Jose Lo MD., have reviewed is study and agree with the above report. Performing Organization Address City/State/Zipcode Phone Number PACS/VR/DOSE XR KUB (10/02/2019 6:25 AM CDT) Specimen Narrative Performed At EXAM: XR KUB PACS/VR/DOSE HISTORY: Abdominal pain COMPARISON: None. FINDINGS: The colon is distended with air down to the mid descending colon, and an obstruction at that point is suspected. Procedure Note [facility], Radiant Results Inft User - 2019 8:28 AM CDT EXAM: XR KUB HISTORY: Abdominal pain COMPARISON: None. FINDINGS: The colon is distended with air down to the mid descending colon, and an obstruction at that point is suspected. Performing Organization Address City/[facility] Phone Number PACS/VR/DOSE CBC WITH DIFFERENTIAL (10/02/2019 3:55 AM CDT) WBC 9.16 4.30 - 11.10 [facility] 10*3/L SERVICES RBC 3.84 (L) 3.93 - 5.25 [facility] 10*6/L SERVICES HGB 7.2 (L) 11.6 - 15.0 [facility] g/dL SERVICES HCT 31.4 (L) 35.7 - 45.2 % [facility] SERVICES MCV 81.8 80.6 - 95.5 [facility] fL SERVICES MCH 18.8 (L) 25.9 - 32.8 [facility] pg SERVICES MCHC 22.9 (L) 31.6 - 35.1 [facility] g/dL SERVICES RDW-SD 86.7 (H) 39.0 - 49.9 [facility] fL SERVICES RDW-CV 31.1 (H) 12.0 - 15.5 % [facility] SERVICES PLT 415 (H) 166 - 358 [facility] 10*3/L SERVICES MPV 10.9 9.5 - 12.9 fL [facility] SERVICES IPF % 4.0Comment: Platelet 1.3 - 7.7 % [facility] count measured by SERVICES fluorescence method. NRBC/100 WBC 0.2 0.0 - 10.0 [facility] /100 WBCs SERVICES NRBC x10^3 0.02 10*3/L [facility] SERVICES GRAN MAT (NEUT) % 78.9 % [facility] SERVICES IMM GRAN % 0.40 % [facility] SERVICES LYMPH % 9.8 % [facility] MONO % 6.3 % [facility] EOS % 4.4 % [facility] SERVICES BASO % 0.2 % [facility] SERVICES GRAN MAT 7.22 (H) 1.88 - 7.09 [facility] x10^3(ANC) 10*3/uL SERVICES IMM GRAN x10^3 0.04 0.00 - 0.06 [facility] 10*3/uL SERVICES LYMPH x10^3 0.90 (L) 1.32 - 3.29 [facility] 10*3/uL SERVICES MONO x10^3 0.58 0.33 - 0.92 [facility] 10*3/uL SERVICES EOS x10^3 0.40 (H) 0.03 - 0.39 [facility] 10*3/uL SERVICES BASO x10^3 <0.03 0.01 - 0.07 [facility] 10*3/uL SERVICES ELLIPTO/OVAL 2+ (A) (none) [facility] LG GRAN LYMPHS Rare Rare [facility] Specimen Blood - LINE, ARTERIAL Performing Organization Address City/[facility]/Zipcode Phone Number [facility] CLIA: [id number], [address] [place] [address] 555 [facility] MAGNESIUM (10/02/2019 3:55 AM CDT) Pathologist Sig nature MAGNESIUM 2.6 (H) 1.7 - 2.4 mg/dL [facility] SERVICES Specimen Blood - LINE, ARTERIAL Performing Organization Address City/[facility]/Zipcode Phone Number [facility] CLIA: [id number], [address] [place] [address] 555 [facility] BASIC METABOLIC PANEL (NA, K, CL, CO2, GLUCOSE, BUN, CREATININE, CA) (10/02/2019 3:55 AM CDT) NA 149 (H) 135 - 145 [facility] mmol/L SERVICES K 3.7 3.5 - 5.0 [facility] mmol/L SERVICES CL 107 98 - 108 mmol/L [facility] SERVICES CO2 TOTAL 39 (H) 23 - 31 mmol/L [facility] SERVICES AGAP 3 2 - 16 [facility] SERVICES BUN 39 (H) 7 - 23 mg/dL [facility] SERVICES GLUCOSE 100 70 - 110 mg/dL [facility] SERVICES CREATININE 1.17 (H) 0.50 - 1.04 [facility] mg/dL SERVICES CALCIUM 9.1 8.6 - 10.6 [facility] mg/dL SERVICES eGFR Calculation 51.0 mL/min/1.73m2 [facility] (Non- SERVICES Swedish) eGFR Calculation 61.8 mL/min/1.73m2 [facility] () SERVICES Specimen Blood - LINE, ARTERIAL Narrative Performed At Association of Glomerular Filtration Rate (GFR) and St aging [facility] SERVICES of Kidney Disease* + + +------- ------ + | GFR (mL/min/1.73 m2) | With Kidney Damage | Wi thout Kidney Damage + + +------- ------ + | >90 | Stage one | Normal + + +------- ------ + | 60-89 | Stage two | Decreased GFR + + +------- ------ + | 30-59 | Stage three | Stage three + + +------- ------ + | 15-29 | Stage four | Stage four + + +------- ------ + | <15 (or dialysis) | Stage five | Stage five + + +------- ------ + *Each stage assumes the associated GFR level has been in effect for at least three months. Stages 1 to 5, wit h or without kidney disease, indicate chronic kidney disease. Notes: Determination of stages one and two (with eGFR >59mL/min/1.73 m2) requires estimation of kidney damag e for at least three months as defined by structural or func tional abnormalities of the kidney, manifested by either: Pathological abnormalities or Markers of kidney damage (including abnormalities in the composition of the blo od or urine or abnormalities in imaging tests) . Performing Organization Address City/State/Zipcode Phone Number [facility] CLIA: [id number], [address] [place] [address] 555 [facility] POCT GLUCOSE (AUTOMATED) (10/02/2019 12:21 AM CDT) [facility] POCT GLU 94 70 - 110 mg/dL [facility] Specimen Blood Performing Organization Address City/[facility]/Zipcode Phone Number [facility] CLIA: [id number], [address] [place] [address] [facility] CORONAVIRUS COVID-19 TESTING (10/01/2019 4:34 PM CDT) SARS-CoV-2 Rapid ID Not Detected Not Detected [facility] NOW SERVICES Specimen Swab - NASOPHARYNGEAL SWAB Narrative Performed At ID NOW COVID-19 Assay is an isothermal nucleic acid [facility] SERVICES amplification test intended for the qualitative detect ion of nucleic acid from SARS-CoV-2 viral RNA in nasopharynge al (SUSTAINABILITY CONSULTANT) specimens. It is used under Emergency Use Authori zation (EUA) by FDA. The limit of detection (LOD) of the assa y is 125 Genome Equivalents/mL. A positive result is indicative of the presence of SARS-CoV-2 RNA. Clinical correlation with patient hi story and other diagnostic information is necessary to deter mine patient infection status. A negative (Not Detected) result does not preclude SARS-CoV-2 infection. Clinical correlation with patien t history and other diagnostic information should be use d in patient management decisions. Invalid: Please collect a new specimen for repeat winter ent testing if clinically indicated. Performing Organization Address City/State/Zipcode Phone Number [facility] CLIA: [id number], [address] [place] [address] [phone] [facility] BASIC METABOLIC PANEL (NA, K, CL, CO2, GLUCOSE, BUN, CREATININE, CA) (10/01/2019 4:34 PM CDT) NA 150 (H) 135 - 145 [facility] mmol/L SERVICES K 3.8 3.5 - 5.0 [facility] mmol/L SERVICES CL 106 98 - 108 mmol/L [facility] SERVICES CO2 TOTAL 38 (H) 23 - 31 mmol/L [facility] SERVICES AGAP 6 2 - 16 [facility] SERVICES BUN 42 (H) 7 - 23 mg/dL [facility] SERVICES GLUCOSE 104 70 - 110 mg/dL [facility] SERVICES CREATININE 1.22 (H) 0.50 - 1.04 [facility] mg/dL SERVICES CALCIUM 9.0 8.6 - 10.6 [facility] mg/dL SERVICES eGFR Calculation 48.6 mL/min/1.73m2 [facility] (Non- SERVICES Swedish) eGFR Calculation 58.9 mL/min/1.73m2 [facility] () SERVICES Specimen Blood - ARTERIAL Narrative Performed At Association of Glomerular Filtration Rate (GFR) and St aging [facility] SERVICES of Kidney Disease* + + +------- ------ + | GFR (mL/min/1.73 m2) | With Kidney Damage | Wi thout Kidney Damage + + +------- ------ + | >90 | Stage one | Normal + + +------- ------ + | 60-89 | Stage two | Decreased GFR + + +------- ------ + | 30-59 | Stage three | Stage three + + +------- ------ + | 15-29 | Stage four | Stage four + + +------- ------ + | <15 (or dialysis) | Stage five | Stage five + + +------- ------ + *Each stage assumes the associated GFR level has been in effect for at least three months. Stages 1 to 5, wit h or without kidney disease, indicate chronic kidney disease. Notes: Determination of stages one and two (with eGFR >59mL/min/1.73 m2) requires estimation of kidney damag e for at least three months as defined by structural or func tional abnormalities of the kidney, manifested by either: Pathological abnormalities or Markers of kidney damage (including abnormalities in the composition of the blo od or urine or abnormalities in imaging tests) . Performing Organization Address City/[facility] Phone Number [facility] CLIA: [id number], [address] [place] [address] [phone] [facility] POCT GLUCOSE (AUTOMATED) (10/01/2019 12:39 PM CDT) Pathologist [facility] POCT GLU 99 70 - 110 mg/dL [facility] Specimen Blood Performing Organization Address [facility] Phone Number [facility] CLIA: [id number], [address] [place] [address] [facility] UREA NITROGEN, URINE RANDOM (10/01/2019 8:14 AM CDT) Pathologist Sig Allani UREA N UR 1,027 mg/dL [facility] Specimen Urine - URINE, CLEAN CATCH Performing Organization Address [facility] Phone Number [facility] CLIA: [id number], [address] [place] [address] [phone] [facility] CREATININE, URINE RANDOM (10/01/2019 8:14 AM CDT) Pathologist Sig Allani CREAT U 123.5 mg/dL [facility] SERVICES Specimen Urine - URINE, CLEAN CATCH Performing Organization Address City/[facility]/Zipcode Phone Number [facility] CLIA: [id number], [address] [place] [address] 555 [facility] BODY FLUID EOSINOPHIL SMEAR (10/01/2019 8:14 AM CDT) Pathologist Sig nature BF Eos No Eosinophils [facility] Observed SERVICES Specimen Urine - URINE, UNSPECIFIED SOURCE Performing Organization Address [facility] Phone Number [facility] CLIA: [id number], [address] [place] [address] 555 [facility] MAGNESIUM (10/01/2019 5:18 AM CDT) Pathologist Sig nature MAGNESIUM 2.5 (H) 1.7 - 2.4 mg/dL [facility] SERVICES Specimen Blood - ARTERIAL Performing Organization Address [facility] Phone Number [facility] CLIA: [id number], [address] [place] [address] 555 [facility] BASIC METABOLIC PANEL (NA, K, CL, CO2, GLUCOSE, BUN, CREATININE, CA) (10/01/2019 5:18 AM CDT) NA 149 (H) 135 - 145 [facility] mmol/L SERVICES K 3.4 (L) 3.5 - 5.0 [facility] mmol/L SERVICES CL 103 98 - 108 mmol/L [facility] SERVICES CO2 TOTAL 38 (H) 23 - 31 mmol/L [facility] SERVICES AGAP 8 2 - 16 [facility] SERVICES BUN 44 (H) 7 - 23 mg/dL [facility] SERVICES GLUCOSE 101 70 - 110 mg/dL [facility] SERVICES CREATININE 1.33 (H) 0.50 - 1.04 [facility] mg/dL SERVICES CALCIUM 9.0 8.6 - 10.6 [facility] mg/dL SERVICES eGFR Calculation 44.0 mL/min/1.73m2 [facility] (Non- SERVICES Swedish) eGFR Calculation 53.3 mL/min/1.73m2 [facility] () SERVICES Specimen Blood - ARTERIAL Narrative Performed At Association of Glomerular Filtration Rate (GFR) and St aging [facility] SERVICES of Kidney Disease* + + +------- ------ + | GFR (mL/min/1.73 m2) | With Kidney Damage | Wi thout Kidney Damage + + +------- ------ + | >90 | Stage one | Normal + + +------- ------ + | 60-89 | Stage two | Decreased GFR + + +------- ------ + | 30-59 | Stage three | Stage three + + +------- ------ + | 15-29 | Stage four | Stage four + + +------- ------ + | <15 (or dialysis) | Stage five | Stage five + + +------- ------ + *Each stage assumes the associated GFR level has been in effect for at least three months. Stages 1 to 5, wit h or without kidney disease, indicate chronic kidney disease. Notes: Determination of stages one and two (with eGFR >59mL/min/1.73 m2) requires estimation of kidney damag e for at least three months as defined by structural or func tional abnormalities of the kidney, manifested by either: Pathological abnormalities or Markers of kidney damage (including abnormalities in the composition of the blo od or urine or abnormalities in imaging tests) . Performing Organization Address City/State/Zipcode Phone Number [facility] CLIA: [id number], [address] [place] [address] [address] [facility] BASIC METABOLIC PANEL (NA, K, CL, CO2, GLUCOSE, BUN, CREATININE, CA) (09/30/2019 10:15 PM CDT) NA 147 (H) 135 - 145 [facility] mmol/L SERVICES K 3.7 3.5 - 5.0 [facility] mmol/L SERVICES CL 103 98 - 108 mmol/L [facility] SERVICES CO2 TOTAL 40 (H) 23 - 31 mmol/L [facility] SERVICES AGAP 4 2 - 16 [facility] SERVICES BUN 45 (H) 7 - 23 mg/dL [facility] SERVICES GLUCOSE 105 70 - 110 mg/dL [facility] SERVICES CREATININE 1.30 (H) 0.50 - 1.04 [facility] mg/dL SERVICES CALCIUM 8.9 8.6 - 10.6 [facility] mg/dL SERVICES eGFR Calculation 45.1 mL/min/1.73m2 [facility] (Non- SERVICES Swedish) eGFR Calculation 54.7 mL/min/1.73m2 [facility] () SERVICES Specimen Blood - LINE, ARTERIAL Narrative Performed At Association of Glomerular Filtration Rate (GFR) and St aging [facility] SERVICES of Kidney Disease* + + +------- ------ + | GFR (mL/min/1.73 m2) | With Kidney Damage | Wi thout Kidney Damage + + +------- ------ + | >90 | Stage one | Normal + + +------- ------ + | 60-89 | Stage two | Decreased GFR + + +------- ------ + | 30-59 | Stage three | Stage three + + +------- ------ + | 15-29 | Stage four | Stage four + + +------- ------ + | <15 (or dialysis) | Stage five | Stage five + + +------- ------ + *Each stage assumes the associated GFR level has been in effect for at least three months. Stages 1 to 5, wit h or without kidney disease, indicate chronic kidney disease. Notes: Determination of stages one and two (with eGFR >59mL/min/1.73 m2) requires estimation of kidney damag e for at least three months as defined by structural or func tional abnormalities of the kidney, manifested by either: Pathological abnormalities or Markers of kidney damage (including abnormalities in the composition of the blo od or urine or abnormalities in imaging tests) . Performing Organization Address City/State/Zipcode Phone Number [facility] CLIA: [id number], [address] [place] [address] [phone] [facility] POCT GLUCOSE (AUTOMATED) (09/30/2019 12:25 PM CDT) [facility] POCT GLU 103 70 - 110 mg/dL [facility] Specimen Blood Performing Organization Address City/[facility]/Zipcode Phone Number [facility] CLIA: [id number], [address] [place] [address] [facility] XR CHEST 1 VW (09/30/2019 11:25 AM CDT) Specimen Impressions Performed At PACS/VR/DOSE Mild interval improvement in pulmonary i nterstitial edema. Stable cardiomegaly. Preliminary Report Dictated by Resident: Marija Lopes I, Kalyani Brown MD., have reviewed thi s study and agree with the above report. Narrative Performed At EXAM: XR CHEST 1 VW PACS/VR/DOSE HISTORY: shortness of breath COMPARISON: Series of chest radiographs the latest is dated 08/27/2019 FINDINGS: The endotracheal tube terminates 6.5 cm above the leve l of the nelson. The right IJ catheter terminates in the prox imal SVC. The feeding tube traverses the thorax into the abdomen and terminates o utside the field of view. The patient is rotated to the right. Bilateral layering pleural effusions are appreciated. Pulmonary interstitial edema is noted, markedly improved since t he last exam. There is no pneumothorax. The heart is stably enlarged. Procedure Note [facility], Radiant Results Inft User - 2019 1:23 PM CDT EXAM: XR CHEST 1 VW HISTORY: shortness of breath COMPARISON: Series of chest radiographs the latest is dated 08/27/2019 FINDINGS: The endotracheal tube terminates 6.5 cm above the level of the nelson. The right IJ catheter terminates in the prox imal SVC. The feeding tube traverses the thorax into the abdomen an d terminates outside the field of view. The patient is rotated to the right. Bilateral layering pleural effusions are appreciated. Pulmonary interstitial edema is noted, markedly im proved since the last exam. There is no pneumothorax. The heart is stably enlarged. IMPRESSION Mild interval improvement in pulmonary i nterstitial edema. Stable cardiomegaly. Preliminary Report Dictated by Resident: Marija Lopes I, Kalyani Brown MD., have reviewed thi s study and agree with the above report. Performing Organization Address City/[facility]/Zipcode Phone Number PACS/VR/DOSE POCT GLUCOSE (AUTOMATED) (09/30/2019 5:17 AM CDT) Pathologist Sig darshan POCT GLU 106 70 - 110 mg/dL [facility] Specimen Blood Performing Organization Address City/[facility]/Zipcode Phone Number [facility] CLIA: [id number], [address] [place], [place] 77 [facility] HEPATIC FUNCTION PANEL ([id number]) (ALB,T.PRO,BILI T,BU/BC,ALT,AST,ALK PHOS) (09/30/2019 3:17 AM CDT) Pathologist Sig nature TOTAL BILI 1.0 0.1 - 1.1 mg/dL [facility] BILI UNCON 0.6 0.1 - 1.1 mg/dL [facility] BILI CONJ 0.0 0.0 - 0.3 mg/dL [facility] T PROTEIN 7.5 6.3 - 8.2 g/dL [facility] ALBUMIN 3.1 (L) 3.5 - 5.0 g/dL [facility] ALK PHOS 46 34 - 122 U/L [facility] ALTv 11 5 - 35 U/L [facility] AST(SGOT) 51 (H) 13 - 40 U/L [facility] Specimen Blood - ARTERIAL Performing Organization Address City/State/Zipcode Phone Number [facility] CLIA: [id number], [address] [place], [place] [address] [facility] CBC WITH DIFFERENTIAL (09/30/2019 3:17 AM CDT) WBC 9.74 4.30 - 11.10 [facility] 10*3/L SERVICES RBC 3.86 (L) 3.93 - 5.25 [facility] 10*6/L SERVICES HGB 7.1 (L) 11.6 - 15.0 [facility] g/dL SERVICES HCT 30.6 (L) 35.7 - 45.2 % [facility] SERVICES MCV 79.3 (L) 80.6 - 95.5 [facility] fL SERVICES MCH 18.4 (L) 25.9 - 32.8 [facility] pg SERVICES MCHC 23.2 (L) 31.6 - 35.1 [facility] g/dL SERVICES RDW-SD 80.4 (H) 39.0 - 49.9 [facility] fL SERVICES RDW-CV 29.7 (H) 12.0 - 15.5 % [facility] SERVICES PLT 282 166 - 358 [facility] 10*3/L SERVICES MPV Comment: Not [facility] Measured SERVICES IPF % 8.6 (H)Comment: 1.3 - 7.7 % [facility] Platelet count SERVICES measured by fluorescence method. NRBC/100 WBC 0.0 0.0 - 10.0 [facility] /100 WBCs SERVICES NRBC x10^3 <0.01 10*3/L [facility] SERVICES GRAN MAT (NEUT) % 81.0 % [facility] IMM GRAN % 0.50 % [facility] LYMPH % 8.0 % [facility] MONO % 6.7 % [facility] SERVICES EOS % 3.6 % [facility] SERVICES BASO % 0.2 % [facility] SERVICES GRAN MAT 7.89 (H) 1.88 - 7.09 [facility] x10^3(ANC) 10*3/uL SERVICES IMM GRAN x10^3 0.05 0.00 - 0.06 [facility] 10*3/uL SERVICES LYMPH x10^3 0.78 (L) 1.32 - 3.29 [facility] 10*3/uL SERVICES MONO x10^3 0.65 0.33 - 0.92 [facility] 10*3/uL SERVICES EOS x10^3 0.35 0.03 - 0.39 [facility] 10*3/uL SERVICES BASO x10^3 <0.03 0.01 - 0.07 [facility] 10*3/uL SERVICES BASO STIPPLING Present (A) [facility] ELLIPTO/OVAL 2+ (A) (none) [facility] REACT LYMPHS Rare [facility] Specimen Blood - ARTERIAL Performing Organization Address City/State/Zipcode Phone Number [facility] CLIA: [id number], [address] [place] [address] 555 [facility] BASIC METABOLIC PANEL (NA, K, CL, CO2, GLUCOSE, BUN, CREATININE, CA) (09/30/2019 3:17 AM CDT) NA 145 135 - 145 [facility] mmol/L SERVICES K 4.1 3.5 - 5.0 [facility] mmol/L SERVICES CL 102 98 - 108 mmol/L [facility] SERVICES CO2 TOTAL 34 (H) 23 - 31 mmol/L [facility] AGAP 9 2 - 16 [facility] BUN 41 (H) 7 - 23 mg/dL [facility] GLUCOSE 104 70 - 110 mg/dL [facility] CREATININE 1.12 (H) 0.50 - 1.04 [facility] mg/dL SERVICES CALCIUM 9.0 8.6 - 10.6 [facility] mg/dL SERVICES eGFR Calculation 53.6 mL/min/1.73m2 [facility] (Non- SERVICES Swedish) eGFR Calculation 65.0 mL/min/1.73m2 [facility] () SERVICES Specimen Blood - ARTERIAL Narrative Performed At [employer] of Glomerular Filtration Rate (GFR) and St aging [facility] SERVICES of Kidney Disease* + + +------- ------ + | GFR (mL/min/1.73 m2) | With Kidney Damage | Wi thout Kidney Damage + + +------- ------ + | >90 | Stage one | Normal + + +------- ------ + | 60-89 | Stage two | Decreased GFR + + +------- ------ + | 30-59 | Stage three | Stage three + + +------- ------ + | 15-29 | Stage four | Stage four + + +------- ------ + | <15 (or dialysis) | Stage five | Stage five + + +------- ------ + *Each stage assumes the associated GFR level has been in effect for at least three months. Stages 1 to 5, wit h or without kidney disease, indicate chronic kidney disease. Notes: Determination of stages one and two (with eGFR >59mL/min/1.73 m2) requires estimation of kidney damag e for at least three months as defined by structural or func tional abnormalities of the kidney, manifested by either: Pathological abnormalities or Markers of kidney damage (including abnormalities in the composition of the blo od or urine or abnormalities in imaging tests) . Performing Organization Address City/[facility] [facility] Phone Number [facility] CLIA: [id number], [address] [place] [address] [phone] [facility] MAGNESIUM (09/30/2019 3:17 AM CDT) Pathologist Sig nature MAGNESIUM 2.3 1.7 - 2.4 mg/dL [facility] Specimen Blood - ARTERIAL Performing Organization Address [facility] Phone Number [facility] CLIA: [id number], [address] [place] [address] 77 [phone] [facility] POCT GLUCOSE (AUTOMATED) (09/29/2019 11:47 PM CDT) Pathologist Sig nature POCT GLU 100 70 - 110 mg/dL [facility] Specimen Blood Performing Organization Address [facility] Phone Number [facility] CLIA: [id number], [address] [place] [address] [phone] [facility] POCT GLUCOSE (AUTOMATED) (09/29/2019 6:00 PM CDT) Pathologist Sig nature POCT GLU 99 70 - 110 mg/dL [facility] Specimen Blood Performing Organization Address [facility] Phone Number [facility] CLIA: [id number], [address] [place] [address] [phone] [facility] AC PANEL 20 + LACTIC ACID (09/29/2019 5:34 PM CDT) Pathologist Sig nature PH 7.51 (H) 7.35 - 7.45 [facility] PCO2 41 35 - 45 mmHg [facility] PO2 78 (L) 80 - 100 mmHg [facility] HCO3 32 (H) 22 - 26 mEq/L [facility] BE 8.0 (H) -3.0 - 3.0 mEq/L [facility] THB 8.4 (L) 12.0 - 16.0 g/dL [facility] %O2HB 91.8 (L) 94.0 - 99.0 % [facility] %COHB ART 1.5 0.0 - 1.5 % [facility] %METHB ART 0.4 0.4 - 1.5 % [facility] VOL%O2 ART 11.0 (L) 15.0 - 23.0 % [facility] NA 146 (H) 135 - 145 mmol/L [facility] K+ 4.1 3.5 - 5.0 mmol/L [facility] AC CA IONZ 4.70 4.50 - 5.30 mg/dL [facility] GLUCOSE 78 70 - 110 mg/dL [facility] LACTIC ACID 0.95 0.50 - 2.20 mmol/L [facility] Specimen Blood - ARTERIAL Performing Organization Address City/State/Zipcode Phone Number [facility] CLIA: [id number], [address] [place] [address] 555 [facility] BASIC METABOLIC PANEL (NA, K, CL, CO2, GLUCOSE, BUN, CREATININE, CA) (09/29/2019 4:33 PM CDT) NA 148 (H) 135 - 145 [facility] mmol/L SERVICES K 4.1 3.5 - 5.0 [facility] mmol/L SERVICES CL 101 98 - 108 mmol/L [facility] CO2 TOTAL 40 (H) 23 - 31 mmol/L [facility] AGAP 7 2 - 16 [facility] BUN 39 (H) 7 - 23 mg/dL [facility] GLUCOSE 105 70 - 110 mg/dL [facility] CREATININE 1.26 (H) 0.50 - 1.04 [facility] mg/dL SERVICES CALCIUM 9.3 8.6 - 10.6 [facility] mg/dL SERVICES eGFR Calculation 46.8 mL/min/1.73m2 [facility] (Non- SERVICES Swedish) eGFR Calculation 56.7 mL/min/1.73m2 [facility] () SERVICES Specimen Blood - ARTERIAL Narrative Performed At Association of Glomerular Filtration Rate (GFR) and St aging [facility] of Kidney Disease* + + +------- ------ + | GFR (mL/min/1.73 m2) | With Kidney Damage | Wi thout Kidney Damage + + +------- ------ + | >90 | Stage one | Normal + + +------- ------ + | 60-89 | Stage two | Decreased GFR + + +------- ------ + | 30-59 | Stage three | Stage three + + +------- ------ + | 15-29 | Stage four | Stage four + + +------- ------ + | <15 (or dialysis) | Stage five | Stage five + + +------- ------ + *Each stage assumes the associated GFR level has been in effect for at least three months. Stages 1 to 5, wit h or without kidney disease, indicate chronic kidney disease. Notes: Determination of stages one and two (with eGFR >59mL/min/1.73 m2) requires estimation of kidney damag e for at least three months as defined by structural or func tional abnormalities of the kidney, manifested by either: Pathological abnormalities or Markers of kidney damage (including abnormalities in the composition of the blo od or urine or abnormalities in imaging tests) . Performing Organization Address [facility] Phone Number [facility] CLIA: [id number], [address] [place] [address] 77 [phone] [facility] POCT GLUCOSE (AUTOMATED) (09/29/2019 12:03 PM CDT) [facility] POCT GLU 99 70 - 110 mg/dL [facility] Specimen Blood Performing Organization Address [facility] Phone Number [facility] CLIA: [id number], [address] [place] [address] [phone] [facility] SARS-COV-2 IGG (09/29/2019 9:05 AM CDT) [facility] CoV-2 IgG NegativeComment: Negative [facility] Negative result does SERVICES not rule out acute SARS-CoV-2 infection. Clinical correlation as well as molecular diagnostic test are recommended to rule out acute infection if clinically indicated. This test has been approved by the FDA for emergency use. Specimen Blood - ARTERIAL Performing Organization Address City/State/Zipcode Phone Number [facility] CLIA: [id number], [address] [place] [address] [phone] [facility] Vancomycin Trough Level - Draw immediately prior to the 4TH dose, but, no more than 60 minutes before the 4TH dose. (09/29/2019 9:05 AM CDT) Pathologist Sig nature VANCO TROUGH 22.8 (H) 10.0 - 20.0 ug/mL [facility] Specimen Blood - ARTERIAL Narrative Performed At Toxic Range: >20 ug/mL [facility] 15-20 ug/mL is recommended for severe infection or whe n Vancomycin URIAH is greater than or equal to 2. Performing Organization Address [facility] Phone Number [facility] CLIA: [id number], [address] [place] [address] 77 [phone] [facility] POCT GLUCOSE (AUTOMATED) (09/29/2019 6:07 AM CDT) Pathologist Sig [facility] POCT GLU 89 70 - 110 mg/dL [facility] Specimen Blood Performing Organization Address City/[facility] Phone Number [facility] CLIA: [id number], [address] [place] [address] [phone] [facility] CBC WITH DIFFERENTIAL (09/29/2019 3:47 AM CDT) WBC 8.74 4.30 - 11.10 [facility] 10*3/L SERVICES RBC 4.16 3.93 - 5.25 [facility] 10*6/L SERVICES HGB 7.4 (L) 11.6 - 15.0 [facility] g/dL SERVICES HCT 32.4 (L) 35.7 - 45.2 [facility] % SERVICES MCV 77.9 (L) 80.6 - 95.5 [facility] fL SERVICES MCH 17.8 (L) 25.9 - 32.8 [facility] pg SERVICES MCHC 22.8 (L) 31.6 - 35.1 [facility] g/dL SERVICES RDW-SD 71.8 (H) 39.0 - 49.9 [facility] fL SERVICES RDW-CV 28.7 (H) 12.0 - 15.5 [facility] % SERVICES PLT 213 166 - 358 [facility] 10*3/L SERVICES MPV Comment: Not [facility] Measured SERVICES IPF % 8.0 (H)Comment: 1.3 - 7.7 % [facility] Platelet count SERVICES measured by fluorescence method. NRBC/100 WBC 0.5 0.0 - 10.0 [facility] /100 WBCs SERVICES NRBC x10^3 0.04 10*3/L [facility] GRAN MAT (NEUT) % 79.0 % [facility] IMM GRAN % 0.60 % [facility] LYMPH % 7.4 % [facility] MONO % 7.8 % [facility] EOS % 5.1 % [facility] BASO % 0.1 % [facility] GRAN MAT x10^3(ANC) 6.90 1.88 - 7.09 [facility] 10*3/uL SERVICES IMM GRAN x10^3 0.05 0.00 - 0.06 [facility] 10*3/uL SERVICES LYMPH x10^3 0.65 (L) 1.32 - 3.29 [facility] 10*3/uL SERVICES MONO x10^3 0.68 0.33 - 0.92 [facility] 10*3/uL SERVICES EOS x10^3 0.45 (H) 0.03 - 0.39 [facility] 10*3/uL SERVICES BASO x10^3 <0.03 0.01 - 0.07 [facility] 10*3/uL SERVICES ELLIPTO/OVAL 2+ (A) (none) [facility] POLYCHROMASIA 2+ 2+ [facility] SCHISTOCYTES 1+ (A) [facility] LG GRAN LYMPHS Rare Rare [facility] Specimen Blood - ARTERIAL Performing Organization Address City/[facility]/Zipcode Phone Number [facility] CLIA: [id number], [address] [place] [address] 555 [facility] MAGNESIUM (09/29/2019 3:47 AM CDT) [facility] MAGNESIUM 2.1 1.7 - 2.4 mg/dL [facility] Specimen Blood - ARTERIAL Performing Organization Address City/[facility]/Zipcode Phone Number [facility] CLIA: [id number], [address] [place] [address] 77 [phone] [facility] BASIC METABOLIC PANEL (NA, K, CL, CO2, GLUCOSE, BUN, CREATININE, CA) (09/29/2019 3:47 AM CDT) NA 146 (H) 135 - 145 [facility] mmol/L SERVICES K 4.0 3.5 - 5.0 [facility] mmol/L SERVICES CL 100 98 - 108 mmol/L [facility] CO2 TOTAL 37 (H) 23 - 31 mmol/L [facility] AGAP 9 2 - 16 [facility] BUN 35 (H) 7 - 23 mg/dL [facility] GLUCOSE 103 70 - 110 mg/dL [facility] CREATININE 1.17 (H) 0.50 - 1.04 [facility] mg/dL SERVICES CALCIUM 9.3 8.6 - 10.6 [facility] mg/dL SERVICES eGFR Calculation 51.0 mL/min/1.73m2 [facility] (Non- SERVICES Swedish) eGFR Calculation 61.8 mL/min/1.73m2 [facility] () SERVICES Specimen Blood - ARTERIAL Narrative Performed At Association of Glomerular Filtration Rate (GFR) and St aging [facility] of Kidney Disease* + + +------- ------ + | GFR (mL/min/1.73 m2) | With Kidney Damage | Wi thout Kidney Damage + + +------- ------ + | >90 | Stage one | Normal + + +------- ------ + | 60-89 | Stage two | Decreased GFR + + +------- ------ + | 30-59 | Stage three | Stage three + + +------- ------ + | 15-29 | Stage four | Stage four + + +------- ------ + | <15 (or dialysis) | Stage five | Stage five + + +------- ------ + *Each stage assumes the associated GFR level has been in effect for at least three months. Stages 1 to 5, wit h or without kidney disease, indicate chronic kidney disease. Notes: Determination of stages one and two (with eGFR >59mL/min/1.73 m2) requires estimation of kidney damag e for at least three months as defined by structural or func tional abnormalities of the kidney, manifested by either: Pathological abnormalities or Markers of kidney damage (including abnormalities in the composition of the blo od or urine or abnormalities in imaging tests) . Performing Organization Address City/State/Zipcode Phone Number [facility] CLIA: [id number], [address] [place] [address] 555 [facility] POCT GLUCOSE (AUTOMATED) (09/28/2019 11:21 PM CDT) Pathologist Sig nature POCT GLU 93 70 - 110 mg/dL [facility] Specimen Blood Performing Organization Address City/[facility]/Zipcode Phone Number [facility] CLIA: [id number], [address] [place] [address] [phone] [facility] POCT GLUCOSE (AUTOMATED) (09/28/2019 5:12 PM CDT) Pathologist Sig nature POCT GLU 99 70 - 110 mg/dL [facility] Specimen Blood Performing Organization Address City/[facility]/Zipcode Phone Number [facility] CLIA: [id number], [address] [place] [address] 77 [facility] BASIC METABOLIC PANEL (NA, K, CL, CO2, GLUCOSE, BUN, CREATININE, CA) (09/28/2019 2:27 PM CDT) NA 147 (H) 135 - 145 [facility] mmol/L SERVICES K 4.2 3.5 - 5.0 [facility] mmol/L SERVICES CL 101 98 - 108 mmol/L [facility] SERVICES CO2 TOTAL 38 (H) 23 - 31 mmol/L [facility] SERVICES AGAP 8 2 - 16 [facility] SERVICES BUN 34 (H) 7 - 23 mg/dL [facility] SERVICES GLUCOSE 105 70 - 110 mg/dL [facility] CREATININE 1.06 (H) 0.50 - 1.04 [facility] mg/dL SERVICES CALCIUM 9.2 8.6 - 10.6 [facility] mg/dL SERVICES eGFR Calculation 57.1 mL/min/1.73m2 [facility] (Non- SERVICES Swedish) eGFR Calculation 69.2 mL/min/1.73m2 [facility] () SERVICES Specimen Blood - ARTERIAL Narrative Performed At Association of Glomerular Filtration Rate (GFR) and St aging [facility] of Kidney Disease* + + +------- ------ + | GFR (mL/min/1.73 m2) | With Kidney Damage | Wi thout Kidney Damage + + +------- ------ + | >90 | Stage one | Normal + + +------- ------ + | 60-89 | Stage two | Decreased GFR + + +------- ------ + | 30-59 | Stage three | Stage three + + +------- ------ + | 15-29 | Stage four | Stage four + + +------- ------ + | <15 (or dialysis) | Stage five | Stage five + + +------- ------ + *Each stage assumes the associated GFR level has been in effect for at least three months. Stages 1 to 5, wit h or without kidney disease, indicate chronic kidney disease. Notes: Determination of stages one and two (with eGFR >59mL/min/1.73 m2) requires estimation of kidney damag e for at least three months as defined by structural or func tional abnormalities of the kidney, manifested by either: Pathological abnormalities or Markers of kidney damage (including abnormalities in the composition of the blo od or urine or abnormalities in imaging tests) . Performing Organization Address City/State/Zipcode Phone Number [facility] CLIA: [id number], [address] [place] [phone] [facility] POCT GLUCOSE (AUTOMATED) (09/28/2019 11:51 AM CDT) Pathologist Sig nature POCT GLU 100 70 - 110 mg/dL [facility] Specimen Blood Performing Organization Address City/[facility] Phone Number [facility] CLIA: [id number], [address] [place] [address] [phone] [facility] POCT GLUCOSE (AUTOMATED) (09/28/2019 5:29 AM CDT) Pathologist Sig [facility] POCT GLU 95 70 - 110 mg/dL [facility] Specimen Blood Performing Organization Address [facility] Phone Number [facility] CLIA: [id number], [address] [place] [address] [phone] [facility] CBC WITH DIFFERENTIAL (09/28/2019 2:48 AM CDT) WBC 8.52 4.30 - 11.10 [facility] 10*3/L SERVICES RBC 3.97 3.93 - 5.25 [facility] 10*6/L SERVICES HGB 7.1 (L) 11.6 - 15.0 [facility] g/dL SERVICES HCT 30.7 (L) 35.7 - 45.2 % [facility] MCV 77.3 (L) 80.6 - 95.5 [facility] fL SERVICES MCH 17.9 (L) 25.9 - 32.8 [facility] pg SERVICES MCHC 23.1 (L) 31.6 - 35.1 [facility] g/dL SERVICES RDW-SD 67.2 (H) 39.0 - 49.9 [facility] fL SERVICES RDW-CV 27.7 (H) 12.0 - 15.5 % [facility] SERVICES PLT 186 166 - 358 [facility] 10*3/L SERVICES MPV Comment: Not [facility] Measured SERVICES IPF % 8.7 (H)Comment: 1.3 - 7.7 % [facility] Platelet count SERVICES measured by fluorescence method. NRBC/100 WBC 0.0 0.0 - 10.0 [facility] /100 WBCs SERVICES NRBC x10^3 <0.01 10*3/L [facility] GRAN MAT (NEUT) % 79.2 % [facility] SERVICES IMM GRAN % 0.40 % [facility] LYMPH % 6.7 % [facility] MONO % 7.4 % [facility] SERVICES EOS % 6.1 % [facility] BASO % 0.2 % [facility] SERVICES GRAN MAT 6.75 1.88 - 7.09 [facility] x10^3(ANC) 10*3/uL SERVICES IMM GRAN x10^3 0.03 0.00 - 0.06 [facility] 10*3/uL SERVICES LYMPH x10^3 0.57 (L) 1.32 - 3.29 [facility] 10*3/uL SERVICES MONO x10^3 0.63 0.33 - 0.92 [facility] 10*3/uL SERVICES EOS x10^3 0.52 (H) 0.03 - 0.39 [facility] 10*3/uL SERVICES BASO x10^3 <0.03 0.01 - 0.07 [facility] 10*3/uL SERVICES ELLIPTO/OVAL 2+ (A) (none) [facility] LG GRAN LYMPHS Rare Rare [facility] Specimen Blood - ARTERIAL Performing Organization Address City/State/Zipcode Phone Number [facility] CLIA: [id number], [address] [place], [place] [address] MAGNESIUM (09/28/2019 2:48 AM CDT) Pathologist Sig nature MAGNESIUM 2.0 1.7 - 2.4 mg/dL [facility] Specimen Blood - ARTERIAL Performing Organization Address City/State/Zipcode Phone Number [facility] CLIA: [id number], [address] [place], [place] [address] 555 [facility] BASIC METABOLIC PANEL (NA, K, CL, CO2, GLUCOSE, BUN, CREATININE, CA) (09/28/2019 2:48 AM CDT) [facility] nature NA 144 135 - 145 [facility] mmol/L SERVICES K 3.7 3.5 - 5.0 [facility] mmol/L SERVICES CL 100 98 - 108 mmol/L [facility] SERVICES CO2 TOTAL 39 (H) 23 - 31 mmol/L [facility] SERVICES AGAP 5 2 - 16 [facility] SERVICES BUN 31 (H) 7 - 23 mg/dL [facility] SERVICES GLUCOSE 104 70 - 110 mg/dL [facility] SERVICES CREATININE 0.96 0.50 - 1.04 [facility] mg/dL SERVICES CALCIUM 8.9 8.6 - 10.6 [facility] mg/dL SERVICES eGFR Calculation 64.0 mL/min/1.73m2 [facility] (Non-) SERVICES eGFR Calculation 77.6 mL/min/1.73m2 [facility] () SERVICES Specimen Blood - ARTERIAL Narrative Performed At Association of Glomerular Filtration Rate (GFR) and St aging [facility] SERVICES of Kidney Disease* + + +------- ------ + | GFR (mL/min/1.73 m2) | With Kidney Damage | Wi thout Kidney Damage + + +------- ------ + | >90 | Stage one | Normal + + +------- ------ + | 60-89 | Stage two | Decreased GFR + + +------- ------ + | 30-59 | Stage three | Stage three + + +------- ------ + | 15-29 | Stage four | Stage four + + +------- ------ + | <15 (or dialysis) | Stage five | Stage five + + +------- ------ + *Each stage assumes the associated GFR level has been in effect for at least three months. Stages 1 to 5, wit h or without kidney disease, indicate chronic kidney disease. Notes: Determination of stages one and two (with eGFR >59mL/min/1.73 m2) requires estimation of kidney damag e for at least three months as defined by structural or func tional abnormalities of the kidney, manifested by either: Pathological abnormalities or Markers of kidney damage (including abnormalities in the composition of the blo od or urine or abnormalities in imaging tests) . Performing Organization Address City/State/Zipcode Phone Number [facility] CLIA: [id number], [address] [place] [phone] [facility] POCT GLUCOSE (AUTOMATED) (09/27/2019 11:28 PM CDT) Pathologist [facility] darshan POCT GLU 97 70 - 110 mg/dL [facility] Specimen Blood Performing Organization Address [facility] Phone Number [facility] CLIA: [id number], [address] [place] [address] 7755 [facility] Vancomycin Trough Level - Draw immediately prior to the NEXT dose, but, no more than 60 minutes before the NEXT dose. (09/27/2019 9:21 PM CDT) Pathologist Sig darshan VANCO TROUGH 13.8 10.0 - 20.0 ug/mL [facility] SERVICE S Specimen Blood - ARTERIAL Narrative Performed At Toxic Range: >20 ug/mL [facility] 15-20 ug/mL is recommended for severe infection or whe n Vancomycin URIAH is greater than or equal to 2. Performing Organization Address [facility] Phone Number [facility] CLIA: [id number], [address] [place] [address] [phone] [facility] POCT GLUCOSE (AUTOMATED) (09/27/2019 5:50 PM CDT) [facility]ani POCT GLU 131 (H) 70 - 110 mg/dL [facility] Specimen Blood Performing Organization Address [facility] Phone Number [facility] CLIA: [id number], [address] [place] [address] [phone] [facility] BASIC METABOLIC PANEL (NA, K, CL, CO2, GLUCOSE, BUN, CREATININE, CA) (09/27/2019 5:19 PM CDT) NA 146 (H) 135 - 145 [facility] mmol/L SERVICES K 3.8 3.5 - 5.0 [facility] mmol/L SERVICES CL 100 98 - 108 mmol/L [facility] SERVICES CO2 TOTAL 42 (H) 23 - 31 mmol/L [facility] SERVICES AGAP 4 2 - 16 [facility] SERVICES BUN 30 (H) 7 - 23 mg/dL [facility] SERVICES GLUCOSE 116 (H) 70 - 110 mg/dL [facility] SERVICES CREATININE 1.07 (H) 0.50 - 1.04 [facility] mg/dL SERVICES CALCIUM 8.8 8.6 - 10.6 [facility] mg/dL SERVICES eGFR Calculation 56.5 mL/min/1.73m2 [facility] (Non- SERVICES Swedish) eGFR Calculation 68.5 mL/min/1.73m2 [facility] () SERVICES Specimen Blood - ARTERIAL Narrative Performed At Association of Glomerular Filtration Rate (GFR) and St aging [facility] SERVICES of Kidney Disease* + + +------- ------ + | GFR (mL/min/1.73 m2) | With Kidney Damage | Wi thout Kidney Damage + + +------- ------ + | >90 | Stage one | Normal + + +------- ------ + | 60-89 | Stage two | Decreased GFR + + +------- ------ + | 30-59 | Stage three | Stage three + + +------- ------ + | 15-29 | Stage four | Stage four + + +------- ------ + | <15 (or dialysis) | Stage five | Stage five + + +------- ------ + *Each stage assumes the associated GFR level has been in effect for at least three months. Stages 1 to 5, wit h or without kidney disease, indicate chronic kidney disease. Notes: Determination of stages one and two (with eGFR >59mL/min/1.73 m2) requires estimation of kidney damag e for at least three months as defined by structural or func tional abnormalities of the kidney, manifested by either: Pathological abnormalities or Markers of kidney damage (including abnormalities in the composition of the blo od or urine or abnormalities in imaging tests) . Performing Organization Address City/[facility] Phone Number [facility] CLIA: [id number], [address] [place] [address] 555 [facility] POCT GLUCOSE (AUTOMATED) (09/27/2019 11:50 AM CDT) Pathologist [facility] nature POCT GLU 115 (H) 70 - 110 mg/dL [facility] Specimen Blood Performing Organization Address City/[facility] Phone Number [facility] CLIA: [id number], [address] [place] [phone] [facility] AC PANEL 20 + LACTIC ACID (09/27/2019 7:49 AM CDT) Pathologist [facility] nature PH 7.50 (H) 7.35 - 7.45 [facility] PCO2 51 (H) 35 - 45 mmHg [facility] PO2 89 80 - 100 mmHg [facility] HCO3 38 (H) 22 - 26 mEq/L [facility] BE 13.5 (H) -3.0 - 3.0 mEq/L [facility] THB 9.0 (L) 12.0 - 16.0 g/dL [facility] %O2HB 93.4 (L) 94.0 - 99.0 % [facility] %COHB ART 1.7 (H) 0.0 - 1.5 % [facility] %METHB ART 0.6 0.4 - 1.5 % [facility] VOL%O2 ART 11.9 (L) 15.0 - 23.0 % [facility] NA 145 135 - 145 mmol/L [facility] K+ 3.7 3.5 - 5.0 mmol/L [facility] AC CA IONZ 4.70 4.50 - 5.30 mg/dL [facility] GLUCOSE 123 (H) 70 - 110 mg/dL [facility] LACTIC ACID 1.31 0.50 - 2.20 mmol/L [facility] Specimen Blood - ARTERIAL Performing Organization Address City/State/Zipcode Phone Number [facility] CLIA: [id number], [address] [place] [address] 555 [facility] CBC WITH DIFFERENTIAL (09/27/2019 3:13 AM CDT) WBC 11.15 (H) 4.30 - 11.10 [facility] 10*3/L SERVICES RBC 4.27 3.93 - 5.25 [facility] 10*6/L SERVICES HGB 7.4 (L) 11.6 - 15.0 [facility] g/dL SERVICES HCT 33.0 (L) 35.7 - 45.2 [facility] % SERVICES MCV 77.3 (L) 80.6 - 95.5 [facility] fL SERVICES MCH 17.3 (L) 25.9 - 32.8 [facility] pg SERVICES MCHC 22.4 (L) 31.6 - 35.1 [facility] g/dL SERVICES RDW-SD 65.4 (H) 39.0 - 49.9 [facility] fL SERVICES RDW-CV 26.4 (H) 12.0 - 15.5 [facility] % SERVICES PLT 177 166 - 358 [facility] 10*3/L SERVICES MPV Comment: Not [facility] Measured SERVICES IPF % 6.7Comment: 1.3 - 7.7 % [facility] Platelet count SERVICES measured by fluorescence method. NRBC/100 WBC 0.3 0.0 - 10.0 [facility] /100 WBCs SERVICES NRBC x10^3 0.03 10*3/L [facility] GRAN MAT (NEUT) % 77.3 % [facility] IMM GRAN % 0.60 % [facility] LYMPH % 7.3 % [facility] MONO % 9.1 % [facility] EOS % 5.5 % [facility] BASO % 0.2 % [facility] GRAN MAT x10^3(ANC) 8.63 (H) 1.88 - 7.09 [facility] 10*3/uL SERVICES IMM GRAN x10^3 0.07 (H) 0.00 - 0.06 [facility] 10*3/uL SERVICES LYMPH x10^3 0.81 (L) 1.32 - 3.29 [facility] 10*3/uL SERVICES MONO x10^3 1.01 (H) 0.33 - 0.92 [facility] 10*3/uL SERVICES EOS x10^3 0.61 (H) 0.03 - 0.39 [facility] 10*3/uL SERVICES BASO x10^3 <0.03 0.01 - 0.07 [facility] 10*3/uL SERVICES BASO STIPPLING Present (A) [facility] ELLIPTO/OVAL 2+ (A) (none) [facility] POLYCHROMASIA 2+ 2+ [facility] SCHISTOCYTES 1+ (A) [facility] SIDEROTIC GRAN Suggestive of [facility] (A)Comment: RBC SERVICES inclusions suggestive of siderotic granules. Iron stain required for positive identification. BANDS Increased (A) [facility] Specimen Blood - ARTERIAL Performing Organization Address City/State/Zipcode Phone Number [facility] CLIA: [id number], [address] [place], [place] [address] MAGNESIUM (09/27/2019 3:13 AM CDT) Pathologist Sig nature MAGNESIUM 2.0 1.7 - 2.4 mg/dL [facility] Specimen Blood - ARTERIAL Performing Organization Address City/State/Zipcode Phone Number [facility] CLIA: [id number], [address] [place], [place] [address] 555 [facility] BASIC METABOLIC PANEL (NA, K, CL, CO2, GLUCOSE, BUN, CREATININE, CA) (09/27/2019 3:13 AM CDT) Pathologist Sig nature NA 145 135 - 145 [facility] mmol/L SERVICES K 3.5 3.5 - 5.0 [facility] mmol/L SERVICES CL 98 98 - 108 mmol/L [facility] CO2 TOTAL 44 (H) 23 - 31 mmol/L [facility] AGAP 3 2 - 16 [facility] BUN 29 (H) 7 - 23 mg/dL [facility] GLUCOSE 122 (H) 70 - 110 mg/dL [facility] CREATININE 1.00 0.50 - 1.04 [facility] mg/dL SERVICES CALCIUM 8.9 8.6 - 10.6 [facility] mg/dL SERVICES eGFR Calculation 61.1 mL/min/1.73m2 [facility] (Non- SERVICES Swedish) eGFR Calculation 74.1 mL/min/1.73m2 [facility] () SERVICES Specimen Blood - ARTERIAL Narrative Performed At Association of Glomerular Filtration Rate (GFR) and St aging [facility] of Kidney Disease* + + +------- ------ + | GFR (mL/min/1.73 m2) | With Kidney Damage | Wi thout Kidney Damage + + +------- ------ + | >90 | Stage one | Normal + + +------- ------ + | 60-89 | Stage two | Decreased GFR + + +------- ------ + | 30-59 | Stage three | Stage three + + +------- ------ + | 15-29 | Stage four | Stage four + + +------- ------ + | <15 (or dialysis) | Stage five | Stage five + + +------- ------ + *Each stage assumes the associated GFR level has been in effect for at least three months. Stages 1 to 5, wit h or without kidney disease, indicate chronic kidney disease. Notes: Determination of stages one and two (with eGFR >59mL/min/1.73 m2) requires estimation of kidney damag e for at least three months as defined by structural or func tional abnormalities of the kidney, manifested by either: Pathological abnormalities or Markers of kidney damage (including abnormalities in the composition of the blo od or urine or abnormalities in imaging tests) . Performing Organization Address City/State/Zipcode Phone Number [facility] CLIA: [id number], [address] [place] [address] [phone] [facility] POCT GLUCOSE (AUTOMATED) (09/27/2019 12:56 AM CDT) Pathologist Sig nature POCT GLU 115 (H) 70 - 110 mg/dL [facility] Specimen Blood Performing Organization Address City/[facility]/Zipcode Phone Number [facility] CLIA: [id number], [address] [place] [address] [place] MAGNESIUM (09/26/2019 3:52 PM CDT) Pathologist Sig nature MAGNESIUM 2.1 1.7 - 2.4 mg/dL [facility] Specimen Blood - ARTERIAL Performing Organization Address City/[facility] Phone Number [facility] CLIA: [id number], [address] [place] [address] [phone] [facility] BASIC METABOLIC PANEL (NA, K, CL, CO2, GLUCOSE, BUN, CREATININE, CA) (09/26/2019 3:52 PM CDT) Pathologist Sig nature NA 145 135 - 145 [facility] mmol/L SERVICES K 3.6 3.5 - 5.0 [facility] mmol/L SERVICES CL 96 (L) 98 - 108 mmol/L [facility] CO2 TOTAL 44 (H) 23 - 31 mmol/L [facility] AGAP 5 2 - 16 [facility] BUN 28 (H) 7 - 23 mg/dL [facility] GLUCOSE 118 (H) 70 - 110 mg/dL [facility] CREATININE 1.01 0.50 - 1.04 [facility] mg/dL SERVICES CALCIUM 9.0 8.6 - 10.6 [facility] mg/dL SERVICES eGFR Calculation 60.4 mL/min/1.73m2 [facility] (Non- SERVICES Swedish) eGFR Calculation 73.2 mL/min/1.73m2 [facility] () SERVICES Specimen Blood - ARTERIAL Narrative Performed At Association of Glomerular Filtration Rate (GFR) and St aging [facility] of Kidney Disease* + + +------- ------ + | GFR (mL/min/1.73 m2) | With Kidney Damage | Wi thout Kidney Damage + + +------- ------ + | >90 | Stage one | Normal + + +------- ------ + | 60-89 | Stage two | Decreased GFR + + +------- ------ + | 30-59 | Stage three | Stage three + + +------- ------ + | 15-29 | Stage four | Stage four + + +------- ------ + | <15 (or dialysis) | Stage five | Stage five + + +------- ------ + *Each stage assumes the associated GFR level has been in effect for at least three months. Stages 1 to 5, wit h or without kidney disease, indicate chronic kidney disease. Notes: Determination of stages one and two (with eGFR >59mL/min/1.73 m2) requires estimation of kidney damag e for at least three months as defined by structural or func tional abnormalities of the kidney, manifested by either: Pathological abnormalities or Markers of kidney damage (including abnormalities in the composition of the blo od or urine or abnormalities in imaging tests) . Performing Organization Address City/[facility]/Zipcode Phone Number [facility] CLIA: [id number], [address] [place] [address] [phone] [facility] SPUTUM CULTURE (09/26/2019 1:10 PM CDT) SPUTUM CULTURE Scant (< 1+) growth [facility] Respiratory saria SERVICES Gram stain No Organisms seen [facility] Gram stain Occasional (Rare) [facility] Polymorphonuclear SERVICES leukocytes Specimen Sputum - ENDOTRACHEAL Performing Organization Address City/State/Zipcode Phone Number [facility] CLIA: [id number], [address] [place] [address] [phone] [facility] XR CHEST 1 VW (09/26/2019 12:26 PM CDT) Specimen Impressions Performed At PACS/VR/DOSE Moderate interval improvement in the aer ation of the lungs especially on the right side in comparison to prior wi th improvement in the bilateral interstitial and airspace opacities. The right central line terminates at the level of the clavicle. The ETT terminates abnormality 6.5 cm above the nelson at the level of the thoracic inlet, further advancement is r ecommended by 2 - 3 cm. The NG tube terminates in the stomach wi th sideholes at the GE junction. Further advancement is recommended by at least 5 cm. Findings were discussed with Dr. Waters at 1:39 PM. Preliminary Report Dictated by Resident: Marianne Winston I, Milagros Chopra MD., have reviewed thi s study and agree with the above report. Narrative Performed At PROCEDURE: XR CHEST 1 VW PACS/VR/DOSE CLINICAL INDICATION: 43-year-old female who is admitte d for heart failure COMPARISON: Chest x-ray dated 09/26/2019. FINDINGS: The patient is rotated to the right. The ETT terminates 6.5 cm above the nelson at the leve l of the clavicles. The right central line terminates at the level of the clavicle, unchanged from prior. The enteric tube terminates in the stomach with sideholes at the GE junction. Bilateral interstitial and airspace opacities are seen , slightly improved from prior. The right costophrenic angle is not well v isualized. The left costophrenic angle is clear. No pneumoth orax is seen. The heart is normal in enlarged. No acute bony abnormality. Procedure Note [facility], Radiant Results Inft User - 2019 2:29 PM CDT PROCEDURE: XR CHEST 1 VW CLINICAL INDICATION: 43-year-old female who is admitted for heart failure COMPARISON: Chest x-ray dated 09/26/2019. FINDINGS: The patient is rotated to the right. The ETT terminates 6.5 cm above the diana na at the level of the clavicles. The right central line terminates at the level of the clavicle, unchanged from prior. The enteric tube terminates in the stomach with sideholes at the GE junction. Bilateral interstitial and airspace opac ities are seen, slightly improved from prior. The right costophrenic angle is not well visualized. The left costophrenic angle is clear. No pneumoth orax is seen. The heart is normal in enlarged. No acute bony abnormality. IMPRESSION Moderate interval improvement in the aer ation of the lungs especially on the right side in comparison to prior wi th improvement in the bilateral interstitial and airspace opacities. The right central line terminates at the level of the clavicle. The ETT terminates abnormality 6.5 cm ab ove the nelson at the level of the thoracic inlet, further advancement is r ecommended by 2 - 3 cm. The NG tube terminates in the stomach wi th sideholes at the GE junction. Further advancement is recommended by at least 5 cm. Findings were discussed with Dr. Waters at 1:39 PM. Preliminary Report Dictated by Resident: Marianne Winston I, Milargos Chopra MD., have reviewed this study and agree with the above report. Performing Organization Address City/State/Zipcode Phone Number PACS/VR/DOSE POCT GLUCOSE (AUTOMATED) (09/26/2019 12:13 PM CDT) Pathologist Sig nature POCT GLU 104 70 - 110 mg/dL [facility] Specimen Blood Performing Organization Address City/[facility] Phone Number [facility] CLIA: [id number], [address] [place] [address] [facility] BLOOD CULTURE SCREEN (09/26/2019 11:11 AM CDT) Blood No organisms isolated No growth [facility] Culture-Aerobic Comment: SERVICES Previous preliminary verifie d result was Culture In Progress on 09/26/2019 at 1601 CDT Previous preliminary verifie d result was No growth at 24 hours on 09/27/2019 at 1301 CDT Previous preliminary verifie d result was No growth at 48 hours on 09/28/2019 at 1301 CDT Previous preliminary verifie d result was No growth at 72 hours on 09/29/2019 at 1301 CDT Blood No organisms isolated No growth [facility] Culture-Anaerobic Comment: SERVICES Previous preliminary verifie d result was Culture In Progress on 09/26/2019 at 1601 CDT Previous preliminary verifie d result was No growth at 24 hours on 09/27/2019 at 1301 CDT Previous preliminary verifie d result was No growth at 48 hours on 09/28/2019 at 1301 CDT Previous preliminary verifie d result was No growth at 72 hours on 09/29/2019 at 1301 CDT Specimen Blood - VENOUS Performing Organization Address City/State/Zipcode Phone Number [facility] CLIA: [id number], [address] [place] [address] [phone] [facility] BLOOD CULTURE SCREEN (09/26/2019 11:11 AM CDT) Blood No organisms isolated No growth [facility] Culture-Aerobic Comment: SERVICES Previous preliminary verifie d result was Culture In Progress on 09/26/2019 at 1601 CDT Previous preliminary verifie d result was No growth at 24 hours on 09/27/2019 at 1301 CDT Previous preliminary verifie d result was No growth at 48 hours on 09/28/2019 at 1301 CDT Previous preliminary verifie d result was No growth at 72 hours on 09/29/2019 at 1301 CDT Blood No organisms isolated No growth [facility] Culture-Anaerobic Comment: SERVICES Previous preliminary verifie d result was Culture In Progress on 09/26/2019 at 1601 CDT Previous preliminary verifie d result was No growth at 24 hours on 09/27/2019 at 1301 CDT Previous preliminary verifie d result was No growth at 48 hours on 09/28/2019 at 1301 CDT Previous preliminary verifie d result was No growth at 72 hours on 09/29/2019 at 1301 CDT Specimen Blood - VENOUS Performing Organization Address City/[facility] Phone Number [facility] CLIA: [id number], [address] [place] [address] [phone] [facility] URINE CULTURE (09/26/2019 11:04 AM CDT) Pathologist Sig nature URINE CULTURE No aerobic growth [facility] (< 1000 CFU/mL) SERVICES Specimen Urine - URINE, CATHETERIZED Performing Organization Address [facility] Phone Number [facility] CLIA: [id number], [address] [place] [address] 555 [facility] URINALYSIS (09/26/2019 11:04 AM CDT) Pathologist Sig nature APPEARANCE Hazy (A) Clear [facility] COLOR Yellow Yellow [facility] PH 5.0 4.8 - 8.0 [facility] SP GRAVITY 1.015 1.003 - 1.030 [facility] GLU U QUAL Normal Normal [facility] BLOOD 2+ (A) Negative [facility] KETONES Negative Negative [facility] PROTEIN 30 mg/dL (A) Negative [facility] UROBILIN Normal Normal [facility] BILIRUBIN Negative Negative [facility] NITRITE Negative Negative [facility] LEUK SKY 25/uL (A) Negative [facility] RBC/HPF 8 (H) 0 - 3 HPF [facility] WBC/HPF 1 0 - 5 HPF [facility] BACTERIA Few (A) Negative [facility] Specimen Urine - URINE, CATHETERIZED Performing Organization Address City/State/Zipcode Phone Number [facility] CLIA: [id number], [address] [place] [address] 555 [facility] XR CHEST 1 VW (09/26/2019 10:44 AM CDT) Specimen Narrative Performed At EXAM: XR CHEST 1 VW PACS/VR/DOSE HISTORY: hypoxia COMPARISON: None. FINDINGS: Fluffy opacities fill both lungs with fl uid and the lungs are less well aerated than noted 2 days earlier. The h eart remains enlarged and ill-defined. Gas-distended colon lies beneath the diap hragm. Procedure Note [facility], Radiant Results Inft User - 2019 10:49 AM CDT EXAM: XR CHEST 1 VW HISTORY: hypoxia COMPARISON: None. FINDINGS: Fluffy opacities fill both lungs with fl uid and the lungs are less well aerated than noted 2 days earlier. The h eart remains enlarged and ill-defined. Gas-distended colon lies be neath the diaphragm. Performing Organization Address City/State/Zipcode Phone Number PACS/VR/DOSE Acute Care Arterial Blood Gas. (09/26/2019 8:12 AM CDT) Pathologist Sig nature PH 7.38 7.35 - 7.45 [facility] PCO2 83 (H) 35 - 45 mmHg [facility] PO2 63 (L) 80 - 100 mmHg [facility] HCO3 48 (H) 22 - 26 mEq/L [facility] BE 19.8 (H) -3.0 - 3.0 mEq/L [facility] Specimen Blood - ARTERIAL Performing Organization Address City/State/Zipcode Phone Number [facility] CLIA: [id number], [address] [place] [address] 555 [facility] Acute Care Arterial Blood Gas. (09/26/2019 3:43 AM CDT) Pathologist Sig nature PH 7.35 7.35 - 7.45 [facility] PCO2 86 (H) 35 - 45 mmHg [facility] PO2 77 (L) 80 - 100 mmHg [facility] HCO3 46 (H) 22 - 26 mEq/L [facility] BE 18.3 (H) -3.0 - 3.0 mEq/L [facility] Specimen Blood - ARTERIAL Performing Organization Address City/State/Zipcode Phone Number [facility] CLIA: [id number], [address] [place], [place] [address] [facility] CBC WITH DIFFERENTIAL (09/26/2019 3:43 AM CDT) WBC 8.30 4.30 - 11.10 [facility] 10*3/L SERVICES RBC 4.33 3.93 - 5.25 [facility] 10*6/L SERVICES HGB 7.5 (L) 11.6 - 15.0 [facility] g/dL SERVICES HCT 33.5 (L) 35.7 - 45.2 % [facility] SERVICES MCV 77.4 (L) 80.6 - 95.5 [facility] fL SERVICES MCH 17.3 (L) 25.9 - 32.8 [facility] pg SERVICES MCHC 22.4 (L) 31.6 - 35.1 [facility] g/dL SERVICES RDW-SD 64.9 (H) 39.0 - 49.9 [facility] fL SERVICES RDW-CV 25.4 (H) 12.0 - 15.5 % [facility] SERVICES PLT 140 (L) 166 - 358 [facility] 10*3/L SERVICES MPV Comment: Not [facility] Measured SERVICES IPF % 6.9Comment: Platelet 1.3 - 7.7 % [facility] count measured by SERVICES fluorescence method. NRBC/100 WBC 0.7 0.0 - 10.0 [facility] /100 WBCs SERVICES NRBC x10^3 0.06 10*3/L [facility] SERVICES GRAN MAT (NEUT) % 77.4 % [facility] SERVICES IMM GRAN % 0.70 % [facility] SERVICES LYMPH % 7.1 % [facility] SERVICES MONO % 8.2 % [facility] SERVICES EOS % 6.4 % [facility] SERVICES BASO % 0.2 % [facility] SERVICES GRAN MAT 6.42 1.88 - 7.09 [facility] x10^3(ANC) 10*3/uL SERVICES IMM GRAN x10^3 0.06 0.00 - 0.06 [facility] 10*3/uL SERVICES LYMPH x10^3 0.59 (L) 1.32 - 3.29 [facility] 10*3/uL SERVICES MONO x10^3 0.68 0.33 - 0.92 [facility] 10*3/uL SERVICES EOS x10^3 0.53 (H) 0.03 - 0.39 [facility] 10*3/uL SERVICES BASO x10^3 <0.03 0.01 - 0.07 [facility] 10*3/uL SERVICES Specimen Blood - ARTERIAL Performing Organization Address City/State/Zipcode Phone Number [facility] CLIA: [id number], [address] [place] [address] [address] [facility] MAGNESIUM (09/26/2019 3:43 AM CDT) Pathologist Sig nature MAGNESIUM 2.3 1.7 - 2.4 mg/dL [facility] SERVICES Specimen Blood - ARTERIAL Performing Organization Address City/[facility]/Zipcode Phone Number [facility] CLIA: [id number], [address] [place] [address] 555 [facility] BASIC METABOLIC PANEL (NA, K, CL, CO2, GLUCOSE, BUN, CREATININE, CA) (09/26/2019 3:43 AM CDT) Pathologist Sig nature NA 145 135 - 145 [facility] mmol/L SERVICES K 3.8 3.5 - 5.0 [facility] mmol/L SERVICES CL 95 (L) 98 - 108 mmol/L [facility] SERVICES CO2 TOTAL 43 (H) 23 - 31 mmol/L [facility] SERVICES AGAP 7 2 - 16 [facility] SERVICES BUN 31 (H) 7 - 23 mg/dL [facility] SERVICES GLUCOSE 130 (H) 70 - 110 mg/dL [facility] SERVICES CREATININE 0.97 0.50 - 1.04 [facility] mg/dL SERVICES CALCIUM 8.7 8.6 - 10.6 [facility] mg/dL SERVICES eGFR Calculation 63.3 mL/min/1.73m2 [facility] (Non- SERVICES Swedish) eGFR Calculation 76.7 mL/min/1.73m2 [facility] () SERVICES Specimen Blood - ARTERIAL Narrative Performed At Association of Glomerular Filtration Rate (GFR) and St aging [facility] SERVICES of Kidney Disease* + + +------- ------ + | GFR (mL/min/1.73 m2) | With Kidney Damage | Wi thout Kidney Damage + + +------- ------ + | >90 | Stage one | Normal + + +------- ------ + | 60-89 | Stage two | Decreased GFR + + +------- ------ + | 30-59 | Stage three | Stage three + + +------- ------ + | 15-29 | Stage four | Stage four + + +------- ------ + | <15 (or dialysis) | Stage five | Stage five + + +------- ------ + *Each stage assumes the associated GFR level has been in effect for at least three months. Stages 1 to 5, wit h or without kidney disease, indicate chronic kidney disease. Notes: Determination of stages one and two (with eGFR >59mL/min/1.73 m2) requires estimation of kidney damag e for at least three months as defined by structural or func tional abnormalities of the kidney, manifested by either: Pathological abnormalities or Markers of kidney damage (including abnormalities in the composition of the blo od or urine or abnormalities in imaging tests) . Performing Organization Address City/[facility] Phone Number [facility] CLIA: [id number], [address] [place] [address] [phone] [facility] POCT GLUCOSE (AUTOMATED) (09/26/2019 2:02 AM CDT) Pathologist Sig Allani POCT GLU 139 (H) 70 - 110 mg/dL [facility] Specimen Blood Performing Organization Address City/[facility]oor Phone Number [facility] CLIA: [id number], [address] [place] [address] 7755 [facility] BASIC METABOLIC PANEL (NA, K, CL, CO2, GLUCOSE, BUN, CREATININE, CA) (09/25/2019 6:19 PM CDT) Pathologist Sig Allani NA 145 135 - 145 [facility] mmol/L SERVICES K 3.8 3.5 - 5.0 [facility] mmol/L SERVICES CL 95 (L) 98 - 108 mmol/L [facility] SERVICES CO2 TOTAL 45 (H) 23 - 31 mmol/L [facility] SERVICES AGAP 5 2 - 16 [facility] SERVICES BUN 28 (H) 7 - 23 mg/dL [facility] SERVICES GLUCOSE 119 (H) 70 - 110 mg/dL [facility] SERVICES CREATININE 0.95 0.50 - 1.04 [facility] mg/dL SERVICES CALCIUM 8.6 8.6 - 10.6 [facility] mg/dL SERVICES eGFR Calculation 64.8 mL/min/1.73m2 [facility] (Non- SERVICES Swedish) eGFR Calculation 78.6 mL/min/1.73m2 [facility] () SERVICES Specimen Blood - ARTERIAL Narrative Performed At Association of Glomerular Filtration Rate (GFR) and St aging [facility] SERVICES of Kidney Disease* + + +------- ------ + | GFR (mL/min/1.73 m2) | With Kidney Damage | Wi thout Kidney Damage + + +------- ------ + | >90 | Stage one | Normal + + +------- ------ + | 60-89 | Stage two | Decreased GFR + + +------- ------ + | 30-59 | Stage three | Stage three + + +------- ------ + | 15-29 | Stage four | Stage four + + +------- ------ + | <15 (or dialysis) | Stage five | Stage five + + +------- ------ + *Each stage assumes the associated GFR level has been in effect for at least three months. Stages 1 to 5, wit h or without kidney disease, indicate chronic kidney disease. Notes: Determination of stages one and two (with eGFR >59mL/min/1.73 m2) requires estimation of kidney damag e for at least three months as defined by structural or func tional abnormalities of the kidney, manifested by either: Pathological abnormalities or Markers of kidney damage (including abnormalities in the composition of the blo od or urine or abnormalities in imaging tests) . Performing Organization Address City/[facility] Phone Number [facility] CLIA: [id number], [address] [place] [address] 555 [facility] POCT GLUCOSE (AUTOMATED) (09/25/2019 5:58 PM CDT) Pathologist [facility] POCT GLU 126 (H) 70 - 110 mg/dL [facility] Specimen Blood Performing Organization Address [facility] Phone Number [facility] CLIA: [id number], [address] [place] [address] [phone] [facility] POCT GLUCOSE (AUTOMATED) (09/25/2019 1:31 PM CDT) Pathologist Sig nature POCT GLU 120 (H) 70 - 110 mg/dL [facility] Specimen Blood Performing Organization Address [facility] Phone Number [facility] CLIA: [id number], [address] [place], [place] 7[address] [facility] POCT GLUCOSE (AUTOMATED) (09/25/2019 5:56 AM CDT) Pathologist Sig nature POCT GLU 129 (H) 70 - 110 mg/dL [facility] Specimen Blood Performing Organization Address City/State/Zipcode Phone Number [facility] CLIA: [id number], [address] [place], [place] 7[address] [facility] CBC WITH DIFFERENTIAL (09/25/2019 3:18 AM CDT) WBC 7.76 4.30 - 11.10 [facility] 10*3/L SERVICES RBC 4.32 3.93 - 5.25 [facility] 10*6/L SERVICES HGB 7.4 (L) 11.6 - 15.0 [facility] g/dL SERVICES HCT 33.0 (L) 35.7 - 45.2 [facility] % SERVICES MCV 76.4 (L) 80.6 - 95.5 [facility] fL SERVICES MCH 17.1 (L) 25.9 - 32.8 [facility] pg SERVICES MCHC 22.4 (L) 31.6 - 35.1 [facility] g/dL SERVICES RDW-SD 63.7 (H) 39.0 - 49.9 [facility] fL SERVICES RDW-CV 24.7 (H) 12.0 - 15.5 [facility] % SERVICES PLT 123 (L) 166 - 358 [facility] 10*3/L SERVICES MPV Comment: Not [facility] Measured SERVICES IPF % 7.2Comment: 1.3 - 7.7 % [facility] Platelet count SERVICES measured by fluorescence method. NRBC/100 WBC 0.6 0.0 - 10.0 [facility] /100 WBCs SERVICES NRBC x10^3 0.05 10*3/L [facility] SERVICES GRAN MAT (NEUT) % 75.3 % [facility] SERVICES IMM GRAN % 0.50 % [facility] SERVICES LYMPH % 8.2 % [facility] SERVICES MONO % 8.9 % [facility] SERVICES EOS % 6.8 % [facility] SERVICES BASO % 0.3 % [facility] SERVICES GRAN MAT x10^3(ANC) 5.84 1.88 - 7.09 [facility] 10*3/uL SERVICES IMM GRAN x10^3 0.04 0.00 - 0.06 [facility] 10*3/uL SERVICES LYMPH x10^3 0.64 (L) 1.32 - 3.29 [facility] 10*3/uL SERVICES MONO x10^3 0.69 0.33 - 0.92 [facility] 10*3/uL SERVICES EOS x10^3 0.53 (H) 0.03 - 0.39 [facility] 10*3/uL SERVICES BASO x10^3 <0.03 0.01 - 0.07 [facility] 10*3/uL SERVICES BASO STIPPLING Present (A) [facility] SERVICES KAYLENE CELLS 2+ (A) (none) [facility] SERVICES ELLIPTO/OVAL 2+ (A) (none) [facility] SERVICES POLYCHROMASIA 2+ 2+ [facility] SERVICES Specimen Blood - LINE, ARTERIAL Performing Organization Address City/[facility]/Zipcode Phone Number [facility] CLIA: [id number], [address] [place] [address] 555 [facility] MAGNESIUM (09/25/2019 3:18 AM CDT) Pathologist Sig nature MAGNESIUM 2.2 1.7 - 2.4 mg/dL [facility] SERVICES Specimen Blood - LINE, ARTERIAL Performing Organization Address City/[facility] Phone Number [facility] CLIA: [id number], [address] [place] [address] 555 [facility] BASIC METABOLIC PANEL (NA, K, CL, CO2, GLUCOSE, BUN, CREATININE, CA) (09/25/2019 3:18 AM CDT) Pathologist Sig nature NA 143 135 - 145 [facility] mmol/L SERVICES K 3.8 3.5 - 5.0 [facility] mmol/L SERVICES CL 95 (L) 98 - 108 mmol/L [facility] SERVICES CO2 TOTAL 44 (H) 23 - 31 mmol/L [facility] SERVICES AGAP 4 2 - 16 [facility] SERVICES BUN 26 (H) 7 - 23 mg/dL [facility] SERVICES GLUCOSE 116 (H) 70 - 110 mg/dL [facility] SERVICES CREATININE 0.91 0.50 - 1.04 [facility] mg/dL SERVICES CALCIUM 8.7 8.6 - 10.6 [facility] mg/dL SERVICES eGFR Calculation 68.1 mL/min/1.73m2 [facility] (Non- SERVICES Swedish) eGFR Calculation 82.6 mL/min/1.73m2 [facility] () SERVICES Specimen Blood - LINE, ARTERIAL Narrative Performed At Association of Glomerular Filtration Rate (GFR) and St aging [facility] SERVICES of Kidney Disease* + + +------- ------ + | GFR (mL/min/1.73 m2) | With Kidney Damage | Wi thout Kidney Damage + + +------- ------ + | >90 | Stage one | Normal + + +------- ------ + | 60-89 | Stage two | Decreased GFR + + +------- ------ + | 30-59 | Stage three | Stage three + + +------- ------ + | 15-29 | Stage four | Stage four + + +------- ------ + | <15 (or dialysis) | Stage five | Stage five + + +------- ------ + *Each stage assumes the associated GFR level has been in effect for at least three months. Stages 1 to 5, wit h or without kidney disease, indicate chronic kidney disease. Notes: Determination of stages one and two (with eGFR >59mL/min/1.73 m2) requires estimation of kidney damag e for at least three months as defined by structural or func tional abnormalities of the kidney, manifested by either: Pathological abnormalities or Markers of kidney damage (including abnormalities in the composition of the blo od or urine or abnormalities in imaging tests) . Performing Organization Address City/[facility] Phone Number [facility] CLIA: [id number], [address] [place] [phone] [facility] POCT GLUCOSE (AUTOMATED) (09/25/2019 12:00 AM CDT) [facility] POCT GLU 109 70 - 110 mg/dL [facility] Specimen Blood Performing Organization Address [facility] Phone Number [facility] CLIA: [id number], [address] [place] [address] 7[address] [facility] POCT GLUCOSE (AUTOMATED) (09/24/2019 6:13 PM CDT) [facility] nature POCT GLU 112 (H) 70 - 110 mg/dL [facility] Specimen Blood Performing Organization Address [facility] Phone Number [facility] CLIA: [id number], [address] [place], [place] 7[address] [facility] BASIC METABOLIC PANEL (NA, K, CL, CO2, GLUCOSE, BUN, CREATININE, CA) (09/24/2019 3:42 PM CDT) [facility] NA 144 135 - 145 [facility] mmol/L SERVICES K 4.1 3.5 - 5.0 [facility] mmol/L SERVICES CL 96 (L) 98 - 108 mmol/L [facility] SERVICES CO2 TOTAL 42 (H) 23 - 31 mmol/L [facility] SERVICES AGAP 6 2 - 16 [facility] SERVICES BUN 23 7 - 23 mg/dL [facility] SERVICES GLUCOSE 99 70 - 110 mg/dL [facility] SERVICES CREATININE 0.94 0.50 - 1.04 [facility] mg/dL SERVICES CALCIUM 8.5 (L) 8.6 - 10.6 [facility] mg/dL SERVICES eGFR Calculation 65.6 mL/min/1.73m2 [facility] (Non- SERVICES Swedish) eGFR Calculation 79.5 mL/min/1.73m2 [facility] () SERVICES Specimen Blood - ARTERIAL Narrative Performed At Association of Glomerular Filtration Rate (GFR) and St aging [facility] SERVICES of Kidney Disease* + + +------- ------ + | GFR (mL/min/1.73 m2) | With Kidney Damage | Wi thout Kidney Damage + + +------- ------ + | >90 | Stage one | Normal + + +------- ------ + | 60-89 | Stage two | Decreased GFR + + +------- ------ + | 30-59 | Stage three | Stage three + + +------- ------ + | 15-29 | Stage four | Stage four + + +------- ------ + | <15 (or dialysis) | Stage five | Stage five + + +------- ------ + *Each stage assumes the associated GFR level has been in effect for at least three months. Stages 1 to 5, wit h or without kidney disease, indicate chronic kidney disease. Notes: Determination of stages one and two (with eGFR >59mL/min/1.73 m2) requires estimation of kidney damag e for at least three months as defined by structural or func tional abnormalities of the kidney, manifested by either: Pathological abnormalities or Markers of kidney damage (including abnormalities in the composition of the blo od or urine or abnormalities in imaging tests) . Performing Organization Address City/State/Zipcode Phone Number [facility] CLIA: [id number], [address] [place] [phone] [facility] POCT GLUCOSE (AUTOMATED) (09/24/2019 11:59 AM CDT) Pathologist [facility] POCT GLU 87 70 - 110 mg/dL [facility] Specimen Blood Performing Organization Address City/[facility] Phone Number [facility] CLIA: [id number], [address] [place] [address] 7[address] [facility] XR CHEST 1 VW (09/24/2019 5:10 AM CDT) Specimen Narrative Performed At EXAM: XR CHEST 1 VW PACS/VR/DOSE HISTORY: Infection COMPARISON: None. FINDINGS: The tip of the endotracheal tube is at the upper level of the clavicles, a nasogastric tube is in the esophagus, and the tip of t he right IJ line is in the superior vena cava. The heart remains enlarged and prominent hilar vascular congestion and interstitial and early alveola r pulmonary edema are present on both sides. The appearance of the chest has worsened in the last 2 days. Procedure Note [facility], Radiant Results Inft User - 2019 7:53 AM CDT EXAM: XR CHEST 1 VW HISTORY: Infection COMPARISON: None. FINDINGS: The tip of the endotracheal tube is at t he upper level of the clavicles, a nasogastric tube is in the esophagus, an d the tip of the right IJ line is in the superior vena cava. The heart rem ains enlarged and prominent hilar vascular congestion and interstitial and early alveolar pulmonary edema are present on both sides. The appearance of the chest has worsened in the last 2 days. Performing Organization Address City/State/[facility] Phone Number PACS/VR/DOSE MAGNESIUM (09/24/2019 3:34 AM CDT) [facility] MAGNESIUM 2.0 1.7 - 2.4 mg/dL [facility] SERVICES Specimen Blood - ARTERIAL Performing Organization Address City/[facility]/Zipcode Phone Number [facility] CLIA: [id number], [address] [place] [phone] [facility] BASIC METABOLIC PANEL (NA, K, CL, CO2, GLUCOSE, BUN, CREATININE, CA) (09/24/2019 3:34 AM CDT) Pathologist [facility] NA 142 135 - 145 [facility] mmol/L SERVICES K 4.0 3.5 - 5.0 [facility] mmol/L SERVICES CL 95 (L) 98 - 108 mmol/L [facility] SERVICES CO2 TOTAL 42 (H) 23 - 31 mmol/L [facility] SERVICES AGAP 5 2 - 16 [facility] SERVICES BUN 21 7 - 23 mg/dL [facility] SERVICES GLUCOSE 89 70 - 110 mg/dL [facility] SERVICES CREATININE 1.00 0.50 - 1.04 [facility] mg/dL SERVICES CALCIUM 8.4 (L) 8.6 - 10.6 [facility] mg/dL SERVICES eGFR Calculation 61.1 mL/min/1.73m2 [facility] (Non- SERVICES Swedish) eGFR Calculation 74.1 mL/min/1.73m2 [facility] () SERVICES Specimen Blood - ARTERIAL Narrative Performed At Association of Glomerular Filtration Rate (GFR) and St aging [facility] SERVICES of Kidney Disease* + + +------- ------ + | GFR (mL/min/1.73 m2) | With Kidney Damage | Wi out Kidney Damage + + +------- ------ + | >90 | Stage one | Normal + + +------- ------ + | 60-89 | Stage two | Decreased GFR + + +------- ------ + | 30-59 | Stage three | Stage three + + +------- ------ + | 15-29 | Stage four | Stage four + + +------- ------ + | <15 (or dialysis) | Stage five | Stage five + + +------- ------ + *Each stage assumes the associated GFR level has been in effect for at least three months. Stages 1 to 5, wit h or without kidney disease, indicate chronic kidney disease. Notes: Determination of stages one and two (with eGFR >59mL/min/1.73 m2) requires estimation of kidney damag e for at least three months as defined by structural or func tional abnormalities of the kidney, manifested by either: Pathological abnormalities or Markers of kidney damage (including abnormalities in the composition of the blo od or urine or abnormalities in imaging tests) . Performing Organization Address City/State/Zipcode Phone Number [facility] CLIA: [id number], [address] [place], [place] [address] [facility] CBC WITH DIFFERENTIAL (09/24/2019 3:34 AM CDT) WBC 7.45 4.30 - 11.10 [facility] 10*3/L SERVICES RBC 4.13 3.93 - 5.25 [facility] 10*6/L SERVICES HGB 6.8 (L) 11.6 - 15.0 [facility] g/dL SERVICES HCT 31.1 (L) 35.7 - 45.2 % [facility] SERVICES MCV 75.3 (L) 80.6 - 95.5 [facility] fL SERVICES MCH 16.5 (L) 25.9 - 32.8 [facility] pg SERVICES MCHC 21.9 (L) 31.6 - 35.1 [facility] g/dL SERVICES RDW-SD 61.6 (H) 39.0 - 49.9 [facility] fL SERVICES RDW-CV 24.0 (H) 12.0 - 15.5 % [facility] SERVICES PLT 118 (L) 166 - 358 [facility] 10*3/L SERVICES MPV Comment: Not [facility] Measured SERVICES IPF % 7.8 (H)Comment: 1.3 - 7.7 % [facility] Platelet count SERVICES measured by fluorescence method. NRBC/100 WBC 0.5 0.0 - 10.0 [facility] /100 WBCs SERVICES NRBC x10^3 0.04 10*3/L [facility] SERVICES GRAN MAT (NEUT) % 79.0 % [facility] SERVICES IMM GRAN % 0.50 % [facility] SERVICES LYMPH % 8.3 % [facility] SERVICES MONO % 8.7 % [facility] SERVICES EOS % 3.4 % [facility] SERVICES BASO % 0.1 % [facility] SERVICES GRAN MAT 5.88 1.88 - 7.09 [facility] x10^3(ANC) 10*3/uL SERVICES IMM GRAN x10^3 0.04 0.00 - 0.06 [facility] 10*3/uL SERVICES LYMPH x10^3 0.62 (L) 1.32 - 3.29 [facility] 10*3/uL SERVICES MONO x10^3 0.65 0.33 - 0.92 [facility] 10*3/uL SERVICES EOS x10^3 0.25 0.03 - 0.39 [facility] 10*3/uL SERVICES BASO x10^3 <0.03 0.01 - 0.07 [facility] 10*3/uL SERVICES Specimen Blood - ARTERIAL Performing Organization Address City/State/Zipcode Phone Number [facility] CLIA: [id number], [address] [place] [phone] [facility] POCT GLUCOSE (AUTOMATED) (09/24/2019 12:26 AM CDT) Pathologist Sig nature POCT GLU 90 70 - 110 mg/dL [facility] Specimen Blood Performing Organization Address City/[facility]/Zipcode Phone Number [facility] CLIA: [id number], [address] [place] [address] [facility] POCT GLUCOSE (AUTOMATED) (09/23/2019 6:05 PM CDT) Pathologist Sig nature POCT GLU 86 70 - 110 mg/dL [facility] Specimen Blood Performing Organization Address City/[facility]/Zipcode Phone Number [facility] CLIA: [id number], [address] [place] [address] 7[address] [facility] MAGNESIUM (09/23/2019 2:21 PM CDT) Pathologist Sig nature MAGNESIUM 2.1 1.7 - 2.4 mg/dL [facility] Specimen Blood - ARTERIAL Performing Organization Address City/State/Zipcode Phone Number [facility] CLIA: [id number], [address] [place] [address] [phone] [facility] BASIC METABOLIC PANEL (NA, K, CL, CO2, GLUCOSE, BUN, CREATININE, CA) (09/23/2019 2:21 PM CDT) Pathologist Sig nature NA 142 135 - 145 [facility] mmol/L SERVICES K 3.7 3.5 - 5.0 [facility] mmol/L SERVICES CL 94 (L) 98 - 108 mmol/L [facility] SERVICES CO2 TOTAL 43 (H) 23 - 31 mmol/L [facility] SERVICES AGAP 5 2 - 16 [facility] SERVICES BUN 21 7 - 23 mg/dL [facility] SERVICES GLUCOSE 81 70 - 110 mg/dL [facility] SERVICES CREATININE 1.02 0.50 - 1.04 [facility] mg/dL SERVICES CALCIUM 8.4 (L) 8.6 - 10.6 [facility] mg/dL SERVICES eGFR Calculation 59.7 mL/min/1.73m2 [facility] (Non- SERVICES Swedish) eGFR Calculation 72.4 mL/min/1.73m2 [facility] () SERVICES Specimen Blood - ARTERIAL Narrative Performed At Association of Glomerular Filtration Rate (GFR) and St aging [facility] SERVICES of Kidney Disease* + + +------- ------ + | GFR (mL/min/1.73 m2) | With Kidney Damage | Wi thout Kidney Damage + + +------- ------ + | >90 | Stage one | Normal + + +------- ------ + | 60-89 | Stage two | Decreased GFR + + +------- ------ + | 30-59 | Stage three | Stage three + + +------- ------ + | 15-29 | Stage four | Stage four + + +------- ------ + | <15 (or dialysis) | Stage five | Stage five + + +------- ------ + *Each stage assumes the associated GFR level has been in effect for at least three months. Stages 1 to 5, wit h or without kidney disease, indicate chronic kidney disease. Notes: Determination of stages one and two (with eGFR >59mL/min/1.73 m2) requires estimation of kidney damag e for at least three months as defined by structural or func tional abnormalities of the kidney, manifested by either: Pathological abnormalities or Markers of kidney damage (including abnormalities in the composition of the blo od or urine or abnormalities in imaging tests) . Performing Organization Address City/State/Zipcode Phone Number [facility] CLIA: [id number], [address] [place] [address] 555 [facility] PROCALCITONIN (09/23/2019 12:23 PM CDT) Pathologist Brandon sexton Procalcitonin 0.23 (H) <0.07 ng/mL [facility] Specimen Blood - ARTERIAL Narrative Performed At INTERPRETATION OF PROCALCITONIN RESULTS IN ADULTS >= 1 8 [facility] YEARS OF AGE Initiation and discontinuation of antibiotics on patie nts with suspected or confirmed Lower Respiratory Tract Infection in Adults >= 18 years of age. + + + +----- ------ + |Procalcitonin |Interpretation |Antibiotic |Considerations |ng/mL | |recommend ation | + + + +----- ------ + | <0.1 | Bacterial | Strongly | | | infection very | discouraged | Overruling: | | unlikely | | Clinically unstable + + + + H igh risk for adverse | <0.25 | Bacterial | Discouraged | outcome | | infection | | SEE IMPORTANT NOTE | | unlikely | | + + + +----- ------ + | >=0.25 | Bacterial | Encouraged | | | infection | | | | likely | | Consider treatment failure + + + + if l evels does not decrease | >0.5 | Bacterial | Strongly | appropriately | | infection very | encouraged | | | likely | | + + + +----- ------ + Discontinuation of antibiotics in high-acuity patients with suspected or confirmed sepsis in Adults >= 18 years of age. + + + +----- ------ + |Procalcitonin |Interpretation |Antibiotic |Considerations |ng/mL | |recommend ation | + + + +----- ------ + | <0.25 | Bacterial | Strongly | | | infection very | discouraged | Overruling: | | unlikely | | Clinically unstable + + + + H igh risk for adverse | <0.5 or drop | Bacterial | Discouraged | outcome | >80% from | infection | | SEE IMPORTANT NOTE | highest PCT | unlikely | | | level | | | + + + +----- ------ + | >=0.5 | Bacterial | Encouraged | | | infection | | | | likely | | Consider treatment failure + + + + if l evels does not decrease | >1.0 | Bacterial | Strongly | appropriately | | infection very | encouraged | | | likely | | + + + +----- ------ + Percentage of drop of Procalcitonin calculation for Discontinuation of antibiotics in high-acuity patients with suspected or confirmed sepsis in Adults >= 18 years of age. Procalcitonin highest{}-Procalcitonin current{} Delta Procalcitonin = x100% Procalcitonin current {} IMPORTANT NOTE: Procalcitonin may be elevated without bacterial infection by physiologic stress related to t rauma, hunt, chronic dialysis, metastatic cancer, surgery in the past seven days, malaria, some fungal infections, and some forms of vasculitis. The interpretation algorithm may not apply to patients with immunosuppression (equivalent o f >10 mg of prednisone daily), HIV with CD4 cell count < 350 cells/mm3, active malignancy on systemic chemotherapy, [facility], or [facility] acquired pneumonia. Additionally, some cli nical trials of procalcitonin have excluded patients with sh ock requiring vasopressor use, acute respiratory failure requiring mechanical ventilation, or those with known lung abscess/empyema. For further information please refer to: [email or web address] Performing Organization Address City/[facility] Phone Number [facility] CLIA: [id number], [address] [place] [phone] [facility] POCT GLUCOSE (AUTOMATED) (09/23/2019 12:02 PM CDT) Pathologist Sig nature POCT GLU 89 70 - 110 mg/dL [facility] Specimen Blood Performing Organization Address City/[facility]/Zipcode Phone Number [facility] CLIA: [id number], [address] [place] [address] [place] MAGNESIUM (09/23/2019 5:11 AM CDT) Pathologist [facility] MAGNESIUM 2.0 1.7 - 2.4 mg/dL [facility] Specimen Blood - ARTERIAL Performing Organization Address City/[facility] Phone Number [facility] CLIA: [id number], [address], [place] [address] [facility] BASIC METABOLIC PANEL (NA, K, CL, CO2, GLUCOSE, BUN, CREATININE, CA) (09/23/2019 5:11 AM CDT) [facility] nature NA 140 135 - 145 [facility] mmol/L SERVICES K 3.5 3.5 - 5.0 [facility] mmol/L SERVICES CL 94 (L) 98 - 108 mmol/L [facility] CO2 TOTAL 42 (H) 23 - 31 mmol/L [facility] AGAP 4 2 - 16 [facility] BUN 23 7 - 23 mg/dL [facility] GLUCOSE 77 70 - 110 mg/dL [facility] CREATININE 0.96 0.50 - 1.04 [facility] mg/dL SERVICES CALCIUM 8.4 (L) 8.6 - 10.6 [facility] mg/dL SERVICES eGFR Calculation 64.0 mL/min/1.73m2 [facility] (Non- SERVICES Swedish) eGFR Calculation 77.6 mL/min/1.73m2 [facility] () SERVICES Specimen Blood - ARTERIAL Narrative Performed At Association of Glomerular Filtration Rate (GFR) and St aging [facility] of Kidney Disease* + + +------- ------ + | GFR (mL/min/1.73 m2) | With Kidney Damage | Wi thout Kidney Damage + + +------- ------ + | >90 | Stage one | Normal + + +------- ------ + | 60-89 | Stage two | Decreased GFR + + +------- ------ + | 30-59 | Stage three | Stage three + + +------- ------ + | 15-29 | Stage four | Stage four + + +------- ------ + | <15 (or dialysis) | Stage five | Stage five + + +------- ------ + *Each stage assumes the associated GFR level has been in effect for at least three months. Stages 1 to 5, wit h or without kidney disease, indicate chronic kidney disease. Notes: Determination of stages one and two (with eGFR >59mL/min/1.73 m2) requires estimation of kidney damag e for at least three months as defined by structural or func tional abnormalities of the kidney, manifested by either: Pathological abnormalities or Markers of kidney damage (including abnormalities in the composition of the blo od or urine or abnormalities in imaging tests) . Performing Organization Address City/State/Zipcode Phone Number [facility] CLIA: [id number], [address] [place] [phone] [facility] POCT GLUCOSE (AUTOMATED) (09/23/2019 5:09 AM CDT) Pathologist Sig nature POCT GLU 89 70 - 110 mg/dL [facility] Specimen Blood Performing Organization Address City/[facility] Phone Number [facility] CLIA: [id number], [address] [place] [address] [facility] POCT GLUCOSE (AUTOMATED) (09/23/2019 1:25 AM CDT) Pathologist Sig nature POCT GLU 89 70 - 110 mg/dL [facility] Specimen Blood Performing Organization Address City/[facility] Phone Number [facility] CLIA: [id number], [address] [place] [address] [facility] BASIC METABOLIC PANEL (NA, K, CL, CO2, GLUCOSE, BUN, CREATININE, CA) (09/22/2019 5:06 PM CDT) Pathologist Sig nature NA 142 135 - 145 [facility] mmol/L SERVICES K 3.8 3.5 - 5.0 [facility] mmol/L SERVICES CL 93 (L) 98 - 108 mmol/L [facility] CO2 TOTAL 43 (H) 23 - 31 mmol/L [facility] AGAP 6 2 - 16 [facility] BUN 24 (H) 7 - 23 mg/dL [facility] GLUCOSE 87 70 - 110 mg/dL [facility] CREATININE 0.94 0.50 - 1.04 [facility] mg/dL SERVICES CALCIUM 8.4 (L) 8.6 - 10.6 [facility] mg/dL SERVICES eGFR Calculation 65.6 mL/min/1.73m2 [facility] (Non- SERVICES Swedish) eGFR Calculation 79.5 mL/min/1.73m2 [facility] () SERVICES Specimen Blood - ARTERIAL Narrative Performed At Association of Glomerular Filtration Rate (GFR) and St aging [facility] of Kidney Disease* + + +------- ------ + | GFR (mL/min/1.73 m2) | With Kidney Damage | Wi thout Kidney Damage + + +------- ------ + | >90 | Stage one | Normal + + +------- ------ + | 60-89 | Stage two | Decreased GFR + + +------- ------ + | 30-59 | Stage three | Stage three + + +------- ------ + | 15-29 | Stage four | Stage four + + +------- ------ + | <15 (or dialysis) | Stage five | Stage five + + +------- ------ + *Each stage assumes the associated GFR level has been in effect for at least three months. Stages 1 to 5, wit h or without kidney disease, indicate chronic kidney disease. Notes: Determination of stages one and two (with eGFR >59mL/min/1.73 m2) requires estimation of kidney damag e for at least three months as defined by structural or func tional abnormalities of the kidney, manifested by either: Pathological abnormalities or Markers of kidney damage (including abnormalities in the composition of the blo od or urine or abnormalities in imaging tests) . Performing Organization Address City/State/Zipcode Phone Number [facility] CLIA: [id number], [address], [place] [address] [facility] XR CHEST 1 VW (09/22/2019 1:50 PM CDT) Specimen Impressions Performed At PACS/VR/DOSE Cardiomegaly and moderate interstitial pulmonary edema with bilateral small pleural effusion. The constellation of f indings may represent congestive heart failure. Opacities in bilateral lung bases are likely due to at electasis; however, an underlying aspiration pneumonia canno t be excluded. Preliminary Report Dictated by Resident: Papi Mauro I, Ramon Edward MD., have reviewed this study and agree with the above report. Narrative Performed At XR CHEST 1 VW PACS/VR/DOSE HISTORY: 43 years-old; Female; fever COMPARISON: 09/21/2019 TECHNIQUE: SINGLE VIEW CHEST RADIOGRAPH. FINDINGS: Right IJ central line is partially visualized terminat ing in the confluence of brachiocephalic vein/proximal SVC. En dotracheal tube terminates approximately 5.6 cm above the nelson. An enteric tube passes through the diaphragm with the tip beyond the field of study. The lungs are underinflated. Interstitia l markings are prominent bilaterally. Opacities are noted in bila teral lung bases. Costophrenic angles are blunted suggestive of small p leural effusion on both sides. There is no pneumothorax. The heart is moderately enlarged. There is no acute osseous abnormality. Procedure Note [facility], Radiant Results Inft User - 2019 2:55 PM CDT XR CHEST 1 VW HISTORY: 43 years-old; Female; fever COMPARISON: 09/21/2019 TECHNIQUE: SINGLE VIEW CHEST RADIOGRAPH. FINDINGS: Right IJ central line is partially visua lized terminating in the confluence of brachiocephalic vein/proximal SVC. En dotracheal tube terminates approximately 5.6 cm above the nelson. A n enteric tube passes through the diaphragm with the tip beyond the field of study. The lungs are underinflated. Interstitia l markings are prominent bilaterally. Opacities are noted in bila teral lung bases. Costophrenic angles are blunted suggestive of small p leural effusion on both sides. There is no pneumothorax. The heart is moderately enlarged. There is no acute osseous abnormality. IMPRESSION Cardiomegaly and moderate interstitial p ulmonary edema with bilateral small pleural effusion. The constellation of f indings may represent congestive heart failure. Opacities in bilateral lung bases are li blayne due to atelectasis; however, an underlying aspiration pneumonia canno t be excluded. Preliminary Report Dictated by Resident: Ramon Shetty MD., have reviewed this study and agree with the above report. Performing Organization Address City/State/Zipcode Phone Number PACS/VR/DOSE BLOOD CULTURE SCREEN (09/22/2019 1:44 PM CDT) Blood No organisms isolated No growth [facility] Culture-Aerobic Comment: SERVICES Previous preliminary verifie d result was Culture In Progress on 09/22/2019 at 1701 CDT Previous preliminary verifie d result was No growth at 24 hours on 09/23/2019 at 1401 CDT Previous preliminary verifie d result was No growth at 48 hours on 09/24/2019 at 1401 CDT Previous preliminary verifie d result was No growth at 72 hours on 09/25/2019 at 1401 CDT Blood No organisms isolated No growth [facility] Culture-Anaerobic Comment: SERVICES Previous preliminary verifie d result was Culture In Progress on 09/22/2019 at 1701 CDT Previous preliminary verifie d result was No growth at 24 hours on 09/23/2019 at 1401 CDT Previous preliminary verifie d result was No growth at 48 hours on 09/24/2019 at 1401 CDT Previous preliminary verifie d result was No growth at 72 hours on 09/25/2019 at 1401 CDT Specimen Blood - ARTERIAL Performing Organization Address City/[facility] Phone Number [facility] CLIA: [id number], [address] [place] [phone] [facility] BLOOD CULTURE SCREEN (09/22/2019 1:44 PM CDT) Blood No organisms isolated No growth [facility] Culture-Aerobic Comment: SERVICES Previous preliminary verifie d result was Culture In Progress on 09/22/2019 at 1701 CDT Previous preliminary verifie d result was No growth at 24 hours on 09/23/2019 at 1401 CDT Previous preliminary verifie d result was No growth at 48 hours on 09/24/2019 at 1401 CDT Previous preliminary verifie d result was No growth at 72 hours on 09/25/2019 at 1401 CDT Blood No organisms isolated No growth [facility] Culture-Anaerobic Comment: SERVICES Previous preliminary verifie d result was Culture In Progress on 09/22/2019 at 1701 CDT Previous preliminary verifie d result was No growth at 24 hours on 09/23/2019 at 1401 CDT Previous preliminary verifie d result was No growth at 48 hours on 09/24/2019 at 1401 CDT Previous preliminary verifie d result was No growth at 72 hours on 09/25/2019 at 1401 CDT Specimen Blood - ARM, LEFT Performing Organization Address [facility] Phone Number [facility] CLIA: [id number], [address] [place] [phone] [facility] CBC WITH DIFFERENTIAL (09/22/2019 12:23 PM CDT) WBC 8.95 4.30 - 11.10 [facility] 10*3/L SERVICES RBC 4.30 3.93 - 5.25 [facility] 10*6/L SERVICES HGB 7.1 (L) 11.6 - 15.0 [facility] g/dL SERVICES HCT 31.2 (L) 35.7 - 45.2 [facility] % SERVICES MCV 72.6 (L) 80.6 - 95.5 [facility] fL SERVICES MCH 16.5 (L) 25.9 - 32.8 [facility] pg SERVICES MCHC 22.8 (L) 31.6 - 35.1 [facility] g/dL SERVICES RDW-SD 58.3 (H) 39.0 - 49.9 [facility] fL SERVICES RDW-CV 23.0 (H) 12.0 - 15.5 [facility] % SERVICES PLT 136 (L) 166 - 358 [facility] 10*3/L SERVICES MPV Comment: Not [facility] Measured SERVICES IPF % 8.5 (H)Comment: 1.3 - 7.7 % [facility] Platelet count SERVICES measured by fluorescence method. NRBC/100 WBC 0.6 0.0 - 10.0 [facility] /100 WBCs SERVICES NRBC x10^3 0.05 10*3/L [facility] GRAN MAT (NEUT) % 85.1 % [facility] IMM GRAN % 0.40 % [facility] LYMPH % 6.0 % [facility] MONO % 7.7 % [facility] EOS % 0.7 % [facility] BASO % 0.1 % [facility] SERVICES GRAN MAT x10^3(ANC) 7.61 (H) 1.88 - 7.09 [facility] 10*3/uL SERVICES IMM GRAN x10^3 0.04 0.00 - 0.06 [facility] 10*3/uL SERVICES LYMPH x10^3 0.54 (L) 1.32 - 3.29 [facility] 10*3/uL SERVICES MONO x10^3 0.69 0.33 - 0.92 [facility] 10*3/uL SERVICES EOS x10^3 0.06 0.03 - 0.39 [facility] 10*3/uL SERVICES BASO x10^3 <0.03 0.01 - 0.07 [facility] 10*3/uL SERVICES ELLIPTO/OVAL 2+ (A) (none) [facility] POLYCHROMASIA 2+ 2+ [facility] Specimen Blood - ARTERIAL Performing Organization Address City/State/Zipcode Phone Number [facility] CLIA: [id number], [address], [place] [address] [facility] MRSA / MSSA SCREEN BY PCR, CORINNE (09/22/2019 12:23 PM CDT) Pathologist Sig nature MRSA Screen by PCR, Negative Negative [facility] Nares SERVICES MSSA Screen by PCR, Negative Negative [facility] Nares SERVICES MRSA/MSSA Positive? No No [facility] Specimen Swab - NARES, BOTH SIDES Performing Organization Address City/[facility]/Zipcode Phone Number [facility] CLIA: [id number], [address] [place] [phone] [facility] POCT GLUCOSE (AUTOMATED) (09/22/2019 12:03 PM CDT) Pathologist Sig nature POCT GLU 98 70 - 110 mg/dL [facility] Specimen Blood Performing Organization Address [facility] Phone Number [facility] CLIA: [id number], [address] [place] [address] [facility] AC PANEL 20 + LACTIC ACID (09/22/2019 7:01 AM CDT) Pathologist Sig nature PH 7.46 (H) 7.35 - 7.45 [facility] PCO2 45 35 - 45 mmHg [facility] PO2 72 (L) 80 - 100 mmHg [facility] HCO3 31 (H) 22 - 26 mEq/L [facility] BE 6.4 (H) -3.0 - 3.0 mEq/L [facility] SERVICES THB 8.3 (LL) 12.0 - 16.0 g/dL [facility] %O2HB 90.2 (L) 94.0 - 99.0 % [facility] SERVICES %COHB ART 2.3 (H) 0.0 - 1.5 % [facility] SERVICES %METHB ART 0.6 0.4 - 1.5 % [facility] SERVICES VOL%O2 ART 10.6 (L) 15.0 - 23.0 % [facility] NA 141 135 - 145 mmol/L [facility] K+ 3.9 3.5 - 5.0 mmol/L [facility] SERVICES AC CA IONZ 4.50 4.50 - 5.30 mg/dL [facility] SERVICES GLUCOSE 70 70 - 110 mg/dL [facility] SERVICES LACTIC ACID 0.82 0.50 - 2.20 mmol/L [facility] Specimen Blood - ARTERIAL Performing Organization Address City/[facility]/Zipcode Phone Number [facility] CLIA: [id number], [address] [place] [phone] [facility] POCT GLUCOSE (AUTOMATED) (09/22/2019 5:49 AM CDT) Pathologist Sig nature POCT GLU 97 70 - 110 mg/dL [facility] Specimen Blood Performing Organization Address City/State/Zipcode Phone Number [facility] CLIA: [id number], [address] [place] [address] [facility] POCT GLUCOSE (AUTOMATED) (09/22/2019 1:01 AM CDT) Pathologist Sig nature POCT GLU 106 70 - 110 mg/dL [facility] Specimen Blood Performing Organization Address City/[facility]/Zipcode Phone Number [facility] CLIA: [id number], [address] [place] [address] [facility] Acute Care Arterial Blood Gas. (09/22/2019 12:24 AM CDT) Pathologist Sig nature PH 7.48 (H) 7.35 - 7.45 [facility] PCO2 56 (H) 35 - 45 mmHg [facility] PO2 68 (L) 80 - 100 mmHg [facility] HCO3 40 (H) 22 - 26 mEq/L [facility] BE 15.1 (H) -3.0 - 3.0 mEq/L [facility] Specimen Blood - ARTERIAL Performing Organization Address City/[facility] Phone Number [facility] CLIA: [id number], [address] [place] [address] [facility] MAGNESIUM (09/22/2019 12:24 AM CDT) Pathologist Sig nature MAGNESIUM 1.7 1.7 - 2.4 mg/dL [facility] Specimen Blood - ARTERIAL Performing Organization Address City/[facility]/Zipcode Phone Number [facility] CLIA: [id number], [address] [place] [address] [facility] CBC WITH DIFFERENTIAL (09/22/2019 12:24 AM CDT) WBC 8.20 4.30 - 11.10 [facility] 10*3/L SERVICES RBC 4.14 3.93 - 5.25 [facility] 10*6/L SERVICES HGB 6.8 (L) 11.6 - 15.0 [facility] g/dL SERVICES HCT 29.9 (L) 35.7 - 45.2 [facility] % SERVICES MCV 72.2 (L) 80.6 - 95.5 [facility] fL SERVICES MCH 16.4 (L) 25.9 - 32.8 [facility] pg SERVICES MCHC 22.7 (L) 31.6 - 35.1 [facility] g/dL SERVICES RDW-SD 57.8 (H) 39.0 - 49.9 [facility] fL SERVICES RDW-CV 22.7 (H) 12.0 - 15.5 [facility] % SERVICES PLT 141 (L) 166 - 358 [facility] 10*3/L SERVICES MPV Comment: Not [facility] Measured SERVICES IPF % 8.7 (H)Comment: 1.3 - 7.7 % [facility] Platelet count SERVICES measured by fluorescence method. NRBC/100 WBC 0.5 0.0 - 10.0 [facility] /100 WBCs SERVICES NRBC x10^3 0.04 10*3/L [facility] GRAN MAT (NEUT) % 83.7 % [facility] IMM GRAN % 0.50 % [facility] LYMPH % 7.0 % [facility] MONO % 7.7 % [facility] EOS % 0.9 % [facility] BASO % 0.2 % [facility] SERVICES GRAN MAT x10^3(ANC) 6.87 1.88 - 7.09 [facility] 10*3/uL SERVICES IMM GRAN x10^3 0.04 0.00 - 0.06 [facility] 10*3/uL SERVICES LYMPH x10^3 0.57 (L) 1.32 - 3.29 [facility] 10*3/uL SERVICES MONO x10^3 0.63 0.33 - 0.92 [facility] 10*3/uL SERVICES EOS x10^3 0.07 0.03 - 0.39 [facility] 10*3/uL SERVICES BASO x10^3 <0.03 0.01 - 0.07 [facility] 10*3/uL SERVICES ELLIPTO/OVAL 2+ (A) (none) [facility] POLYCHROMASIA 2+ 2+ [facility] Specimen Blood - ARTERIAL Performing Organization Address City/State/Zipcode Phone Number [facility] CLIA: [id number], [address], [place] [address] [facility] BASIC METABOLIC PANEL (NA, K, CL, CO2, GLUCOSE, BUN, CREATININE, CA) (09/22/2019 12:24 AM CDT) NA 140 135 - 145 [facility] mmol/L SERVICES K 3.9Comment: 3.5 - 5.0 [facility] Slight hemolysis mmol/L SERVICES CL 93 (L) 98 - 108 [facility] mmol/L SERVICES CO2 TOTAL 45 (H) 23 - 31 [facility] mmol/L SERVICES AGAP 2 2 - 16 [facility] SERVICES BUN 26 (H)Comment: 7 - 23 mg/dL [facility] Slight hemolysis SERVICES GLUCOSE 86 70 - 110 [facility] mg/dL SERVICES CREATININE 0.87 0.50 - 1.04 [facility] mg/dL SERVICES CALCIUM 8.4 (L) 8.6 - 10.6 [facility] mg/dL SERVICES eGFR Calculation 71.8 mL/min/1.73m2 [facility] (Non- SERVICES Swedish) eGFR Calculation 87.0 mL/min/1.73m2 [facility] () SERVICES Specimen Blood - ARTERIAL Narrative Performed At Association of Glomerular Filtration Rate (GFR) and St aging [facility] SERVICES of Kidney Disease* + + +------- ------ + | GFR (mL/min/1.73 m2) | With Kidney Damage | Wi thout Kidney Damage + + +------- ------ + | >90 | Stage one | Normal + + +------- ------ + | 60-89 | Stage two | Decreased GFR + + +------- ------ + | 30-59 | Stage three | Stage three + + +------- ------ + | 15-29 | Stage four | Stage four + + +------- ------ + | <15 (or dialysis) | Stage five | Stage five + + +------- ------ + *Each stage assumes the associated GFR level has been in effect for at least three months. Stages 1 to 5, wit h or without kidney disease, indicate chronic kidney disease. Notes: Determination of stages one and two (with eGFR >59mL/min/1.73 m2) requires estimation of kidney damag e for at least three months as defined by structural or func tional abnormalities of the kidney, manifested by either: Pathological abnormalities or Markers of kidney damage (including abnormalities in the composition of the blo od or urine or abnormalities in imaging tests) . Performing Organization Address City/State/Zipcode Phone Number [facility] CLIA: [id number], [address] [place] [address] [phone] [facility] POCT GLUCOSE (AUTOMATED) (09/21/2019 5:41 PM CDT) Pathologist Sig nature POCT GLU 101 70 - 110 mg/dL [facility] Specimen Blood Performing Organization Address City/[facility] Phone Number [facility] CLIA: [id number], [address] [place] [phone] [place] PROFILE / HEMOGRAM (09/21/2019 5:35 PM CDT) WBC 8.84 4.30 - 11.10 [facility] 10*3/L SERVICES RBC 4.28 3.93 - 5.25 [facility] 10*6/L SERVICES HGB 7.0 (L) 11.6 - 15.0 [facility] g/dL SERVICES HCT 31.2 (L) 35.7 - 45.2 % [facility] MCH 16.4 (L) 25.9 - 32.8 pg [facility] MCV 72.9 (L) 80.6 - 95.5 fL [facility] MCHC 22.4 (L) 31.6 - 35.1 [facility] g/dL SERVICES PLT 140 (L) 166 - 358 [facility] 10*3/L SERVICES MPV Comment: Not Measured [facility] RDW-CV 22.5 (H) 12.0 - 15.5 % [facility] RDW-SD 57.1 (H) 39.0 - 49.9 fL [facility] NRBC x10^3 0.04 10*3/L [facility] NRBC/100 WBC 0.5 0.0 - 10.0 [facility] /100 WBCs SERVICES IPF % 7.3Comment: Platelet 1.3 - 7.7 % [facility] count measured by SERVICES fluorescence method. Specimen Blood - ARTERIAL Performing Organization Address City/[facility]/Zipcode Phone Number [facility] CLIA: [id number], [address] [place] [address] [phone] [facility] Acute Care Arterial Blood Gas. (09/21/2019 3:00 PM CDT) Pathologist [facility] PH 7.45 7.35 - 7.45 [facility] PCO2 60 (H) 35 - 45 mmHg [facility] PO2 87 80 - 100 mmHg [facility] HCO3 41 (H) 22 - 26 mEq/L [facility] BE 15.0 (H) -3.0 - 3.0 mEq/L [facility] Specimen Blood - WRIST, RIGHT Performing Organization Address City/[facility] Phone Number [facility] CLIA: [id number], [address] [place] [address] 77 [phone] [facility] TROPONIN I (09/21/2019 3:00 PM CDT) [facility] TROPONIN I 0.024 <=0.034 ng/mL [facility] Specimen Blood - WRIST, RIGHT Narrative Performed At Equal or Less than 0.034 ng/ml---Normal [facility] Note: Cardiac troponin begins to rise 3-4 hours after the onset of ischemia. Repeat in 4-6 hours if the sample w as drawn within 3-4 hours of the onset of the symptom and found normal. Between 0.035 and 0.120 ng/mL--- Borderline. Questiona ble myocardial injury or necrosis Note: Serial measurement may be necessary to confirm o r exclude the diagnosis of myocardial injury or necrosis ; Clinical correlation (symptoms, EKGs, imaging studies, and others) required; Repeat in 4-6 hours if clinically indicated. Equal or Higher than 0.121 ng/mL---Abnormal. Myocardia l Injury or Necrosis Likely Biotin has been reported to cause a negative bias, int erpret results relative to patient's use of biotin. Performing Organization Address City/[facility]/Zipcode Phone Number [facility] CLIA: [id number], [address] [place] [address] [phone] [facility] POCT GLUCOSE (AUTOMATED) (09/21/2019 11:44 AM CDT) Pathologist [facility] POCT GLU 78 70 - 110 mg/dL [facility] Specimen Blood Performing Organization Address City/[facility]/Zipcode Phone Number [facility] CLIA: [id number], [address] [place] [address] [phone] [facility] Acute Care Arterial Blood Gas. (09/21/2019 9:28 AM CDT) [facility] PH 7.51 (H) 7.35 - 7.45 [facility] PCO2 52 (H) 35 - 45 mmHg [facility] PO2 56 (L) 80 - 100 mmHg [facility] HCO3 41 (H) 22 - 26 mEq/L [facility] BE 15.9 (H) -3.0 - 3.0 mEq/L [facility] Specimen Blood - ARTERIAL Performing Organization Address City/State/Zipcode Phone Number [facility] CLIA: [id number], [address] [place] [address] [phone] [facility] Prepare Packed RBC (in units), 1 Units (09/21/2019 8:42 AM CDT) [facility] [address] Cross Match Result Compatible LAB ISBT Blood Type Code 6200 LAB Unit Blood Type A Pos LAB Unit Number [id number] LAB Blood Expiration Date & LAB Time Status Information Issued LAB Product Identification Red Blood Cells LAB Product Code [id number] LAB Comment: Performed at [facility] Laboratory Services - [facility] Blood [place] [address] Toll Free: [phone] CLIA No. [id number] Specimen Performing Organization Address City/State/Zipcode Phone Number [facility] POCT GLUCOSE (AUTOMATED) (09/21/2019 6:55 AM CDT) [facility] POCT GLU 112 (H) 70 - 110 mg/dL [facility] Specimen Blood Performing Organization Address City/State/Zipcode Phone Number [facility] CLIA: [id number], [address] [place] [phone] [facility] Type and Screen - ONCE Routine (09/21/2019 6:42 AM CDT) [facility] ABO & RH A POSITIVE LAB Comment: Performed at [facility] Laboratory Services - [facility] Blood [place] [address] Toll Free: [phone] CLIA No. [id number] IAT Negative LAB Comment: Performed at [facility] Services - [facility] Blood Bank [address] [place] [address], [place], [place] [address] Toll Free: [phone] CLIA No. [id number] Specimen Blood - VENOUS Performing Organization Address City/State/Zipcode Phone Number BLD LAB XR CHEST 1 VW (09/21/2019 5:50 AM CDT) Specimen Impressions Performed At PACS/VR/DOSE Endotracheal tube in proper position. Ri ght IJ central line and proximal SVC. Cardiomegaly and pulmonary congestion wi th small right pleural effusion. Right basilar opacities are likely due t o atelectasis; however, a developing pneumonia cannot be excluded in appropriate clinical settings. Preliminary Report Dictated by Resident: Papi Mauro I, Ramon Edward MD., have reviewed this study and agree with the above report. Narrative Performed At XR CHEST 1 VW PACS/VR/DOSE HISTORY: 43 years-old; Female; s/p intub ation COMPARISON: 09/20/2019 TECHNIQUE: SINGLE VIEW CHEST RADIOGRAPH. FINDINGS: Right IJ central line terminates in the proximal SVC. Endotracheal tube terminates approximately 4.9 cm above th e nleson. An enteric tube enters the stomach with the tip beyond the fiel d of study. Costophrenic angles are blunted bilatera lly, suggestive of small pleural effusion. Opacities are noted in the rig ht lung base. Left perihilar abdominal opacities are also identified. Interstitial markings are prominent. The cardiac silhouette is enlarged. There is no acute osseous abnormality. Procedure Note [facility], Radiant Results Inft User - 2019 8:45 AM CDT XR CHEST 1 VW HISTORY: 43 years-old; Female; s/p intub ation COMPARISON: 09/20/2019 TECHNIQUE: SINGLE VIEW CHEST RADIOGRAPH. FINDINGS: Right IJ central line terminates in the proximal SVC. Endotracheal tube terminates approximately 4.9 cm above th e nelson. An enteric tube enters the stomach with the tip beyond the fiel d of study. Costophrenic angles are blunted bilatera lly, suggestive of small pleural effusion. Opacities are noted in the rig ht lung base. Left perihilar abdominal opacities are also identified. Interstitial markings are prominent. The cardiac silhouette is enlarged. Ther e is no acute osseous abnormality. IMPRESSION Endotracheal tube in proper position. Ri ght IJ central line and proximal SVC. Cardiomegaly and pulmonary congestion wi th small right pleural effusion. Right basilar opacities are likely due t o atelectasis; however, a developing pneumonia cannot be excluded in appropriate clinical settings. Preliminary Report Dictated by Resident: Ramon Shetty MD., have reviewed this study and agree with the above report. Performing Organization Address [facility] Phone Number PACS/VR/DOSE Abdominal 1 View - To confirm nasogastric tube placement. (09/21/2019 5:50 AM CDT) Specimen Impressions Performed At FINDINGS/IMPRESSION: PACS/VR/DOSE The enteric tube passes through the diaphragm and term inates in the stomach in proper position. The bowel gas pattern is within normal l imits. Preliminary Report Dictated by Resident: Ramon Shetty MD., have reviewed this study and agree with the above report. Narrative Performed At XR ABDOMEN 1 VW PACS/VR/DOSE HISTORY: 43 years-old; Female; enteral t ube placement COMPARISON: 05/29/2016 Procedure Note [facility], Radiant Results Inft User - 2019 11:58 AM CDT XR ABDOMEN 1 VW HISTORY: 43 years-old; Female; enteral t ube placement COMPARISON: 05/29/2016 IMPRESSION FINDINGS/IMPRESSION: The enteric tube passes through the diap hragm and terminates in the stomach in proper position. The bowel gas pattern is within normal l imits. Preliminary Report Dictated by Resident: Ramon Shetty MD., have reviewed this study and agree with the above report. Performing Organization Address [facility] Phone Number PACS/VR/DOSE BLOOD CULTURE SCREEN (09/21/2019 4:58 AM CDT) Blood No organisms isolated No growth [facility] Culture-Aerobic Comment: SERVICES Previous preliminary verifie d result was Culture In Progress on 09/21/2019 at 0901 CDT Previous preliminary verifie d result was No growth at 24 hours on 09/22/2019 at 0601 CDT Previous preliminary verifie d result was No growth at 48 hours on 09/23/2019 at 0601 CDT Previous preliminary verifie d result was No growth at 72 hours on 09/24/2019 at 0601 CDT Blood No organisms isolated No growth [facility] Culture-Anaerobic Comment: SERVICES Previous preliminary verifie d result was Culture In Progress on 09/21/2019 at 0901 CDT Previous preliminary verifie d result was No growth at 24 hours on 09/22/2019 at 06 CDT Previous preliminary verifie d result was No growth at 48 hours on 09/23/2019 at 06 CDT Previous preliminary verifie d result was No growth at 72 hours on 09/24/2019 at 06 CDT Specimen Blood - ARM, RIGHT Performing Organization Address [facility] Phone Number [facility] CLIA: [id number], [address] [place] [phone] [facility] BLOOD CULTURE SCREEN (09/21/2019 4:58 AM CDT) Blood No organisms isolated No growth [facility] Culture-Aerobic Comment: SERVICES Previous preliminary verifie d result was Culture In Progress on 09/21/2019 at 09 CDT Previous preliminary verifie d result was No growth at 24 hours on 09/22/2019 at 06 CDT Previous preliminary verifie d result was No growth at 48 hours on 09/23/2019 at 06 CDT Previous preliminary verifie d result was No growth at 72 hours on 09/24/2019 at 06 CDT Blood No organisms isolated No growth [facility] Culture-Anaerobic Comment: SERVICES Previous preliminary verifie d result was Culture In Progress on 09/21/2019 at 09 CDT Previous preliminary verifie d result was No growth at 24 hours on 09/22/2019 at 06 CDT Previous preliminary verifie d result was No growth at 48 hours on 09/23/2019 at 06 CDT Previous preliminary verifie d result was No growth at 72 hours on 09/24/2019 at 06 CDT Specimen Blood - ARM, RIGHT Performing Organization Address [facility] Phone Number [facility] CLIA: [id number], [address] [place] [phone] [facility] URINE DRUG (LCMSMS) - BENZODIAZEPINES PANEL (09/21/2019 4:54 AM CDT) Pathologist Sig nature [id number]-INTERPR Negative Negative [facility] ETATION SERVICES 2-EXBMG-PR-INTERPRETAT Negative Negative [facility] ION SERVICES LORAZEPAM-INTERPRETATI Negative Negative [facility] ON SERVICES NORDIAZEP-INTERPRETATI Negative Negative [facility] ON SERVICES TEMAZEPAM-INTERPRETATI Negative Negative [facility] ON SERVICES OXAZEPAM-INTERPRETATIO Negative Negative [facility] N SERVICES CREAT U 7.9 mg/dL [facility] Specimen Urine - URINE, CATHETERIZED Narrative Performed At Test developed and characteristics determined by [facility] Laboratory Services. Performing Organization Address City/State/Zipcode Phone Number [facility] CLIA: [id number], [address] [place] [address] 555 [facility] GALV/CLC ONLY - URINE DRUG (IMMUNOASSAY) - COMPREHENSIVE DRUG SCREEN (09/21/2019 4:54 AM CDT) AMPHET Negative Negative [facility] OLAMIDE U Negative Negative [facility] BENZO U Presumptive Negative [facility] Positive (A) SERVICES Cocaine Metabolite Negative Negative [facility] METHADONE Negative Negative [facility] OPIATES Negative Negative [facility] PCP Negative Negative [facility] THC Negative Negative [facility] Specimen Urine - URINE, CATHETERIZED Narrative Performed At Urine Drug Cutoff Ranges [facility] Cocaine: 150 ng/mL Benzodiazepines: 200 ng/mL Methadone: 300 ng/mL Amphetamine: 1,000 ng/mL Opiates: 300 ng/mL Cannabinoids: 50 ng/mL Phencyclidine: 25 ng/mL Barbiturates: 200 ng/mL The results are to be used only for medical (i.e., treatment) purposes. Unconfirmed screening results mus t not be used for non-medical purposes (e.g., employment isadora ting, legal testing). Performing Organization Address City/State/Zipcode Phone Number [facility] CLIA: [id number], [address] [place] [address] 555 [facility] URINALYSIS (09/21/2019 4:54 AM CDT) Pathologist Sig nature APPEARANCE Hazy (A) Clear [facility] COLOR Straw (A) Yellow [facility] PH 7.0 4.8 - 8.0 [facility] SP GRAVITY 1.005 1.003 - 1.030 [facility] GLU U QUAL Normal Normal [facility] BLOOD Negative Negative [facility] KETONES Negative Negative [facility] PROTEIN Negative Negative [facility] UROBILIN Normal Normal [facility] BILIRUBIN Negative Negative [facility] NITRITE Negative Negative [facility] SERVICES LEUK SKY Negative Negative [facility] SERVICES RBC/HPF 1 0 - 3 HPF [facility] SERVICES WBC/HPF 3 0 - 5 HPF [facility] BACTERIA Negative Negative [facility] AMORPHOUS Few (A) Rare HPF [facility] SQ EPITH 1 <=2 HPF [facility] Specimen Urine - URINE, CATHETERIZED Performing Organization Address [facility] Phone Number [facility] CLIA: [id number], [address] [place] [address] 555 [facility] URINE CULTURE (09/21/2019 4:54 AM CDT) Pathologist Sig nature URINE CULTURE No aerobic growth [facility] (< 1000 CFU/mL) SERVICES Specimen Urine - URINE, CATHETERIZED Performing Organization Address [facility] Phone Number [facility] CLIA: [id number], [address] [place] [address] 555 [facility] AC ABG + LACTIC ACID (09/21/2019 4:52 AM CDT) Pathologist Sig nature PH 7.40 7.35 - 7.45 [facility] PCO2 67 (H) 35 - 45 mmHg [facility] PO2 79 (L) 80 - 100 mmHg [facility] HCO3 41 (H) 22 - 26 mEq/L [facility] BE 14.3 (H) -3.0 - 3.0 mEq/L [facility] LACTIC ACID 1.32 0.50 - 2.20 mmol/L [facility] Specimen Blood - ARM, LEFT Performing Organization Address [facility] Phone Number [facility] CLIA: [id number], [address] [place] [address] 555 [facility] CBC WITH DIFFERENTIAL (09/21/2019 4:50 AM CDT) WBC 10.02 4.30 - 11.10 [facility] 10*3/L SERVICES RBC 4.10 3.93 - 5.25 [facility] 10*6/L SERVICES HGB 6.6 (L) 11.6 - 15.0 [facility] g/dL SERVICES HCT 30.8 (L) 35.7 - 45.2 [facility] % SERVICES MCV 75.1 (L) 80.6 - 95.5 [facility] fL SERVICES MCH 16.1 (L) 25.9 - 32.8 [facility] pg SERVICES MCHC 21.4 (L) 31.6 - 35.1 [facility] g/dL SERVICES RDW-SD 60.5 (H) 39.0 - 49.9 [facility] fL SERVICES RDW-CV 22.5 (H) 12.0 - 15.5 [facility] % SERVICES PLT 155 (L) 166 - 358 [facility] 10*3/L SERVICES MPV Comment: Not [facility] Measured SERVICES IPF % 10.0 (H)Comment: 1.3 - 7.7 % [facility] Platelet count SERVICES measured by fluorescence method. NRBC/100 WBC 1.2 0.0 - 10.0 [facility] /100 WBCs SERVICES NRBC x10^3 0.12 10*3/L [facility] SERVICES GRAN MAT (NEUT) % 83.3 % [facility] SERVICES IMM GRAN % 0.90 % [facility] LYMPH % 4.4 % [facility] MONO % 11.0 % [facility] SERVICES EOS % 0.2 % [facility] SERVICES BASO % 0.2 % [facility] SERVICES GRAN MAT x10^3(ANC) 8.35 (H) 1.88 - 7.09 [facility] 10*3/uL SERVICES IMM GRAN x10^3 0.09 (H) 0.00 - 0.06 [facility] 10*3/uL SERVICES LYMPH x10^3 0.44 (L) 1.32 - 3.29 [facility] 10*3/uL SERVICES MONO x10^3 1.10 (H) 0.33 - 0.92 [facility] 10*3/uL SERVICES EOS x10^3 <0.03 (L) 0.03 - 0.39 [facility] 10*3/uL SERVICES BASO x10^3 <0.03 0.01 - 0.07 [facility] 10*3/uL SERVICES ELLIPTO/OVAL 2+ (A) (none) [facility] POLYCHROMASIA 2+ 2+ [facility] Specimen Blood - ARTERIAL Performing Organization Address City/[facility]/Zipcode Phone Number [facility] CLIA: [id number], [address] [place] [phone] [facility] TROPONIN I (09/21/2019 4:50 AM CDT) [facility] TROPONIN I 0.036 (H) <=0.034 ng/mL [facility] Specimen Blood - ARTERIAL Narrative Performed At Equal or Less than 0.034 ng/ml---Normal [facility] Note: Cardiac troponin begins to rise 3-4 hours after the onset of ischemia. Repeat in 4-6 hours if the sample w as drawn within 3-4 hours of the onset of the symptom and found normal. Between 0.035 and 0.120 ng/mL--- Borderline. Questiona ble myocardial injury or necrosis Note: Serial measurement may be necessary to confirm o r exclude the diagnosis of myocardial injury or necrosis ; Clinical correlation (symptoms, EKGs, imaging studies, and others) required; Repeat in 4-6 hours if clinically indicated. Equal or Higher than 0.121 ng/mL---Abnormal. Myocardia l Injury or Necrosis Likely Biotin has been reported to cause a negative bias, int erpret results relative to patient's use of biotin. Performing Organization Address [facility] Phone Number [facility] CLIA: [id number], [address] [place] [address] 555 [facility] BASIC METABOLIC PANEL (NA, K, CL, CO2, GLUCOSE, BUN, CREATININE, CA) (09/21/2019 4:50 AM CDT) Pathologist [facility] NA 141 135 - 145 [facility] mmol/L SERVICES K 4.1 3.5 - 5.0 [facility] mmol/L SERVICES CL 93 (L) 98 - 108 mmol/L [facility] SERVICES CO2 TOTAL 38 (H) 23 - 31 mmol/L [facility] SERVICES AGAP 10 2 - 16 [facility] SERVICES BUN 27 (H) 7 - 23 mg/dL [facility] SERVICES GLUCOSE 129 (H) 70 - 110 mg/dL [facility] SERVICES CREATININE 0.90 0.50 - 1.04 [facility] mg/dL SERVICES CALCIUM 8.2 (L) 8.6 - 10.6 [facility] mg/dL SERVICES eGFR Calculation 69.0 mL/min/1.73m2 [facility] (Non- SERVICES Swedish) eGFR Calculation 83.6 mL/min/1.73m2 [facility] () SERVICES Specimen Blood - ARTERIAL Narrative Performed At Association of Glomerular Filtration Rate (GFR) and St aging [facility] SERVICES of Kidney Disease* + + +------- ------ + | GFR (mL/min/1.73 m2) | With Kidney Damage | Wi thout Kidney Damage + + +------- ------ + | >90 | Stage one | Normal + + +------- ------ + | 60-89 | Stage two | Decreased GFR + + +------- ------ + | 30-59 | Stage three | Stage three + + +------- ------ + | 15-29 | Stage four | Stage four + + +------- ------ + | <15 (or dialysis) | Stage five | Stage five + + +------- ------ + *Each stage assumes the associated GFR level has been in effect for at least three months. Stages 1 to 5, wit h or without kidney disease, indicate chronic kidney disease. Notes: Determination of stages one and two (with eGFR >59mL/min/1.73 m2) requires estimation of kidney damag e for at least three months as defined by structural or func tional abnormalities of the kidney, manifested by either: Pathological abnormalities or Markers of kidney damage (including abnormalities in the composition of the blo od or urine or abnormalities in imaging tests) . Performing Organization Address City/[facility] Phone Number [facility] CLIA: [id number], [address] [place] [address] 555 [facility] MRSA / MSSA Screen by Corinne NERI (09/21/2019 4:50 AM CDT) Pathologist [facility] MRSA Screen by No result due to Negative [facility] PCR, Nares inhibitors or SERVICES inadequate sample for testing. MSSA Screen by No result due to Negative [facility] PCR, Nares inhibitors or SERVICES inadequate sample for testing. Specimen Swab - NARSonia, RIGHT SIDE Performing Organization Address [facility] Phone Number [facility] CLIA: [id number], [address] [place] [address] 555 [facility] Acute Care Arterial Blood Gas. (09/21/2019 2:25 AM CDT) Pathologist [facility] PH 6.96 (LL) 7.35 - 7.45 [facility] PCO2 >160 (H) 35 - 45 mmHg [facility] PO2 97 80 - 100 mmHg [facility] HCO3 40 (H) 22 - 26 mEq/L [facility] BE 5.5 (H) -3.0 - 3.0 mEq/L [facility] Specimen Blood - ARTERIAL Performing Organization Address City/[facility]/Zipcode Phone Number [facility] CLIA: [id number], [address] [place] [address] [phone] [facility] AC PANEL 20 + LACTIC ACID (09/20/2019 11:15 PM CDT) [facility] nature PH 7.34 (L) 7.35 - 7.45 [facility] PCO2 75 (H) 35 - 45 mmHg [facility] PO2 54 (L) 80 - 100 mmHg [facility] HCO3 39 (H) 22 - 26 mEq/L [facility] BE 11.8 (H) -3.0 - 3.0 mEq/L [facility] THB 7.9 (LL) 12.0 - 16.0 g/dL [facility] %O2HB 80.3 (L) 94.0 - 99.0 % [facility] %COHB ART 5.2 (H) 0.0 - 1.5 % [facility] %METHB ART 0.2 (L) 0.4 - 1.5 % [facility] VOL%O2 ART 9.0 (L) 15.0 - 23.0 % [facility] NA 140 135 - 145 mmol/L [facility] K+ 4.2 3.5 - 5.0 mmol/L [facility] AC CA IONZ 4.40 (L) 4.50 - 5.30 mg/dL [facility] GLUCOSE 125 (H) 70 - 110 mg/dL [facility] LACTIC ACID 1.75 0.50 - 2.20 mmol/L [facility] Specimen Blood - ARTERIAL Performing Organization Address City/State/Zipcode Phone Number [facility] CLIA: [id number], [address] [place] [address] [phone] [facility] XR CHEST 1 VW (09/20/2019 10:42 PM CDT) Specimen Impressions Performed At PACS/VR/DOSE Cardiomegaly, pulmonary vascular congest ion. Preliminary Report Dictated by Resident: Milagros Osborne MD., have reviewed thi s study and agree with the above report. Narrative Performed At EXAM: XR CHEST 1 VW PACS/VR/DOSE HISTORY: SOB COMPARISON: Chest radiograph 10/06/2018 FINDINGS: Bilateral pulmonary vascular congestion is identified. No parenchymal consolidation is appreciated. Diffuse winston ziness in the lung hirsch favors overlying soft tissue. No pleural effusi on or pneumothorax. The heart is enlarged. No acute bony abnormality. Procedure Note [facility], Radiant Results Inft User - 2019 11:50 PM CDT EXAM: XR CHEST 1 VW HISTORY: SOB COMPARISON: Chest radiograph 10/06/2018 FINDINGS: Bilateral pulmonary vascular congestion is identified. No parenchymal consolidation is appreciated. Diffuse winston ziness in the lung hirsch favors overlying soft tissue. No pleural effusi on or pneumothorax. The heart is enlarged. No acute bony abnormality. IMPRESSION Cardiomegaly, pulmonary vascular congest ion. Preliminary Report Dictated by Resident: Blue Machado I, Milagros Chopra MD., have reviewed this study and agree with the above report. Performing Organization Address City/State/Zipcode Phone Number PACS/VR/DOSE CORONAVIRUS COVID-19 TESTING (09/20/2019 10:27 PM CDT) SARS-CoV-2 Rapid ID Not Detected Not Detected [facility] NOW SERVICES Specimen Swab - NASOPHARYNGEAL SWAB Narrative Performed At ID NOW COVID-19 Assay is an isothermal nucleic acid [facility] SERVICES amplification test intended for the qualitative detect ion of nucleic acid from SARS-CoV-2 viral RNA in nasopharynge al (SUSTAINABILITY CONSULTANT) specimens. It is used under Emergency Use Authori zation (EUA) by FDA. The limit of detection (LOD) of the assa y is 125 Genome Equivalents/mL. A positive result is indicative of the presence of SARS-CoV-2 RNA. Clinical correlation with patient hi story and other diagnostic information is necessary to deter mine patient infection status. A negative (Not Detected) result does not preclude SARS-CoV-2 infection. Clinical correlation with patien t history and other diagnostic information should be use d in patient management decisions. Invalid: Please collect a new specimen for repeat winter ent testing if clinically indicated. Performing Organization Address City/State/Zipcode Phone Number [facility] CLIA: [id number], [address], [place] [address] [facility] PROCALCITONIN (09/20/2019 10:22 PM CDT) Pathologist Brandon sexton Procalcitonin 0.07 (H) <0.07 ng/mL [facility] Specimen Blood - ARM, LEFT Narrative Performed At INTERPRETATION OF PROCALCITONIN RESULTS IN ADULTS >= 1 8 [facility] YEARS OF AGE Initiation and discontinuation of antibiotics on patie nts with suspected or confirmed Lower Respiratory Tract Infection in Adults >= 18 years of age. + + + +----- ------ + |Procalcitonin |Interpretation |Antibiotic |Considerations |ng/mL | |recommend ation | + + + +----- ------ + | <0.1 | Bacterial | Strongly | | | infection very | discouraged | Overruling: | | unlikely | | Clinically unstable + + + + H igh risk for adverse | <0.25 | Bacterial | Discouraged | outcome | | infection | | SEE IMPORTANT NOTE | | unlikely | | + + + +----- ------ + | >=0.25 | Bacterial | Encouraged | | | infection | | | | likely | | Consider treatment failure + + + + if l evels does not decrease | >0.5 | Bacterial | Strongly | appropriately | | infection very | encouraged | | | likely | | + + + +----- ------ + Discontinuation of antibiotics in high-acuity patients with suspected or confirmed sepsis in Adults >= 18 years of age. + + + +----- ------ + |Procalcitonin |Interpretation |Antibiotic |Considerations |ng/mL | |recommend ation | + + + +----- ------ + | <0.25 | Bacterial | Strongly | | | infection very | discouraged | Overruling: | | unlikely | | Clinically unstable + + + + H igh risk for adverse | <0.5 or drop | Bacterial | Discouraged | outcome | >80% from | infection | | SEE IMPORTANT NOTE | highest PCT | unlikely | | | level | | | + + + +----- ------ + | >=0.5 | Bacterial | Encouraged | | | infection | | | | likely | | Consider treatment failure + + + + if l evels does not decrease | >1.0 | Bacterial | Strongly | appropriately | | infection very | encouraged | | | likely | | + + + +----- ------ + Percentage of drop of Procalcitonin calculation for Discontinuation of antibiotics in high-acuity patients with suspected or confirmed sepsis in Adults >= 18 years of age. Procalcitonin highest{}-Procalcitonin current{} Delta Procalcitonin = x100% Procalcitonin current {} IMPORTANT NOTE: Procalcitonin may be elevated without bacterial infection by physiologic stress related to t rauma, hunt, chronic dialysis, metastatic cancer, surgery in the past seven days, malaria, some fungal infections, and some forms of vasculitis. The interpretation algorithm may not apply to patients with immunosuppression (equivalent o f >10 mg of prednisone daily), HIV with CD4 cell count < 350 cells/mm3, active malignancy on systemic chemotherapy, solid organ transplant or hematopoietic stem cell transplant ation, or hospital acquired pneumonia. Additionally, some cli nical trials of procalcitonin have excluded patients with sh ock requiring vasopressor use, acute respiratory failure requiring mechanical ventilation, or those with known lung abscess/empyema. For further information please refer to: [email or web address] Performing Organization Address City/[facility] Phone Number [facility] CLIA: [id number], [address] [place] [address] 555 [facility] FERRITIN SERUM (09/20/2019 10:22 PM CDT) Pathologist Sig [facility] FERRITIN 9.0 6.0 - 137.0 ng/mL [facility] SERVICE S Specimen Blood - ARM, LEFT Narrative Performed At Biotin has been reported to cause a negative bias, int erpret [facility] results relative to patient's use of biotin. Performing Organization Address City/[facility] Phone Number [facility] CLIA: [id number], [address] [place] [address] 555 [facility] IRON PANEL (09/20/2019 10:22 PM CDT) Pathologist Sig [facility] IRON 37 (L)Comment: 50 - 160 ug/dL [facility] Slight hemolysis SERVICES TIBC 462 (H) 250 - 410 ug/dL [facility] % FE SAT 8 (L) 20 - 50 % [facility] Specimen Blood - ARM, LEFT Performing Organization Address [facility] Phone Number [facility] CLIA: [id number], [address] [place] [address] 555 [facility] GLYCOSYLATED HEMOGLOBIN (A1C) (09/20/2019 10:22 PM CDT) Pathologist Sig [facility] HGB A1C 5.3 4.0 - 6.0 % [facility] Specimen Blood - ARM, LEFT Performing Organization Address City/[facility] Phone Number [facility] CLIA: [id number], [address] [place] [address] 555 [facility] N-TERMINAL PRO-BNP (09/20/2019 10:22 PM CDT) Pathologist Sig nature NT-proBNP 2,940 (H) <=125 pg/mL [facility] Specimen Blood - ARM, LEFT Narrative Performed At Biotin has been reported to cause a negative bias, int erpret [facility] results relative to patient's use of biotin. Performing Organization Address City/State/Zipcode Phone Number [facility] CLIA: [id number], [address], [place] [address] [facility] CBC WITH DIFFERENTIAL (09/20/2019 10:22 PM CDT) WBC 6.01 4.30 - 11.10 [facility] 10*3/L SERVICES RBC 4.31 3.93 - 5.25 [facility] 10*6/L SERVICES HGB 6.9 (L) 11.6 - 15.0 [facility] g/dL SERVICES HCT 32.5 (L) 35.7 - 45.2 [facility] % SERVICES MCV 75.4 (L) 80.6 - 95.5 [facility] fL SERVICES MCH 16.0 (L) 25.9 - 32.8 [facility] pg SERVICES MCHC 21.2 (L) 31.6 - 35.1 [facility] g/dL SERVICES RDW-SD 60.8 (H) 39.0 - 49.9 [facility] fL SERVICES RDW-CV 23.2 (H) 12.0 - 15.5 [facility] % SERVICES PLT 168 166 - 358 [facility] 10*3/L SERVICES MPV Comment: Not [facility] Measured SERVICES IPF % 8.5 (H)Comment: 1.3 - 7.7 % [facility] Platelet count SERVICES measured by fluorescence method. NRBC/100 WBC 3.0 0.0 - 10.0 [facility] /100 WBCs SERVICES NRBC x10^3 0.18 10*3/L [facility] GRAN MAT (NEUT) % 67.5 % [facility] IMM GRAN % 0.70 % [facility] LYMPH % 18.8 % [facility] MONO % 11.5 % [facility] EOS % 1.2 % [facility] BASO % 0.3 % [facility] GRAN MAT x10^3(ANC) 4.06 1.88 - 7.09 [facility] 10*3/uL SERVICES IMM GRAN x10^3 0.04 0.00 - 0.06 [facility] 10*3/uL SERVICES LYMPH x10^3 1.13 (L) 1.32 - 3.29 [facility] 10*3/uL SERVICES MONO x10^3 0.69 0.33 - 0.92 [facility] 10*3/uL SERVICES EOS x10^3 0.07 0.03 - 0.39 [facility] 10*3/uL SERVICES BASO x10^3 <0.03 0.01 - 0.07 [facility] 10*3/uL SERVICES ELLIPTO/OVAL 2+ (A) (none) [facility] POLYCHROMASIA 2+ 2+ [facility] Specimen Blood - ARM, LEFT Performing Organization Address City/State/Zipcode Phone Number [facility] CLIA: [id number], [address] [place] [address] [phone] [facility] TEST, SERUM (09/20/2019 10:22 PM CDT) Pathologist Sig nature PREG SERUM Negative [facility] Specimen Blood - ARM, LEFT Narrative Performed At Less than 10 IU/L. If low titer or ectopic is [facility] suspected, resubmit specimen in 48-72 hours. Performing Organization Address City/[facility] Phone Number [facility] CLIA: [id number], [address] [place] [address] [phone] [facility] D-DIMER (09/20/2019 10:22 PM CDT) Pathologist Sig nature D-DIMER 0.69 (H) <0.50 g/mL (FEU) [facility] SERVIC ES Specimen Blood - ARM, LEFT Narrative Performed At This test may be used in conjunction with a clinical p retest [facility] SERVICES probability (PTP) assessment model to exclude venous thromboembolism (VTE) in patients suspected of deep ve nous thrombosis (DVT) and pulmonary embolism (PE) A D-Dimer value less than 0.50 g/ml (FEU) has a nega tive predicative value of 96 to 100% (95% CI)and 97 to 100% (95% CI) as an aid in the diagnosis of deep vein thrombosis (DVT) and pulmonary embolism when there is low or moderate p retest probability of PE or DVT. D-Dimer values are expressed in initial fibrinogen equivalent units (FEU)" The assay results should be used with other informatio n, including the clinical context, in formi ng a diagnosis. Performing Organization Address City/State/[facility] Phone Number [facility] CLIA: [id number], [address], [place] [address] [facility] LIPASE, SERUM (09/20/2019 10:22 PM CDT) Pathologist Sig nature LIPASE 88 0 - 220 U/L [facility] Specimen Blood - ARM, LEFT Performing Organization Address City/[facility]/Zipcode Phone Number [facility] CLIA: [id number], [address], [place] [address] [facility] COMP. METABOLIC PANEL ([id number]) (09/20/2019 10:22 PM CDT) Pathologist Sig nature NA 140 135 - 145 [facility] mmol/L SERVICES K 4.5 3.5 - 5.0 [facility] mmol/L SERVICES CL 93 (L) 98 - 108 mmol/L [facility] CO2 TOTAL 36 (H) 23 - 31 mmol/L [facility] AGAP 11 2 - 16 [facility] BUN 25 (H) 7 - 23 mg/dL [facility] GLUCOSE 129 (H) 70 - 110 mg/dL [facility] CREATININE 0.87 0.50 - 1.04 [facility] mg/dL SERVICES TOTAL BILI 0.6 0.1 - 1.1 mg/dL [facility] SERVICES CALCIUM 8.4 (L) 8.6 - 10.6 [facility] mg/dL SERVICES T PROTEIN 7.8 6.3 - 8.2 g/dL [facility] SERVICES ALBUMIN 3.7 3.5 - 5.0 g/dL [facility] ALK PHOS 60 34 - 122 U/L [facility] ALTv 19 5 - 35 U/L [facility] AST(SGOT) 45 (H) 13 - 40 U/L [facility] SERVICES eGFR Calculation 71.8 mL/min/1.73m2 [facility] (Non- SERVICES Swedish) eGFR Calculation 87.0 mL/min/1.73m2 [facility] () SERVICES Specimen Blood - ARM, LEFT Narrative Performed At Association of Glomerular Filtration Rate (GFR) and St aging [facility] SERVICES of Kidney Disease* + + +------- ------ + | GFR (mL/min/1.73 m2) | With Kidney Damage | Wi thout Kidney Damage + + +------- ------ + | >90 | Stage one | Normal + + +------- ------ + | 60-89 | Stage two | Decreased GFR + + +------- ------ + | 30-59 | Stage three | Stage three + + +------- ------ + | 15-29 | Stage four | Stage four + + +------- ------ + | <15 (or dialysis) | Stage five | Stage five + + +------- ------ + *Each stage assumes the associated GFR level has been in effect for at least three months. Stages 1 to 5, wit h or without kidney disease, indicate chronic kidney disease. Notes: Determination of stages one and two (with eGFR >59mL/min/1.73 m2) requires estimation of kidney damag e for at least three months as defined by structural or func tional abnormalities of the kidney, manifested by either: Pathological abnormalities or Markers of kidney damage (including abnormalities in the composition of the blo od or urine or abnormalities in imaging tests) . Performing Organization Address City/[facility] Phone Number [facility] CLIA: [id number], [address] [place] [address] [address] [facility] PROTHROMBIN TIME / INR (09/20/2019 10:22 PM CDT) PROTIME PATIENT 14.3 (H) 10.1 - 12.6 [facility] Seconds SERVICES INR 1.3Comment: Normal [facility] INR <1.1; Warfarin SERVICES Therapeutic range 2.0 to 3.0 or 2.5 to 3.5, depending upon the indications. Specimen Blood - ARM, LEFT Performing Organization Address [facility] Phone Number [facility] CLIA: [id number], [address] [place] [address] 555 [facility] aPTT (09/20/2019 10:22 PM CDT) Pathologist Sig nature APTT Patient 27 26 - 36 Seconds [facility] SERVICES Specimen Blood - ARM, LEFT Performing Organization Address [facility]/[employer] Phone Number [facility] CLIA: [id number], [address] [place] [address] 555 [facility] TROPONIN I (09/20/2019 10:22 PM CDT) Pathologist Sig nature TROPONIN I 0.025 <=0.034 ng/mL [facility] Specimen Blood - ARM, LEFT Narrative Performed At Equal or Less than 0.034 ng/ml---Normal [facility] Note: Cardiac troponin begins to rise 3-4 hours after the onset of ischemia. Repeat in 4-6 hours if the sample w as drawn within 3-4 hours of the onset of the symptom and found normal. Between 0.035 and 0.120 ng/mL--- Borderline. Questiona ble myocardial injury or necrosis Note: Serial measurement may be necessary to confirm o r exclude the diagnosis of myocardial injury or necrosis ; Clinical correlation (symptoms, EKGs, imaging studies, and others) required; Repeat in 4-6 hours if clinically indicated. Equal or Higher than 0.121 ng/mL---Abnormal. Myocardia l Injury or Necrosis Likely Biotin has been reported to cause a negative bias, int erpret results relative to patient's use of biotin. Performing Organization Address City/State/Zipcode Phone Number [facility] CLIA: [id number], [address], [place] [address] [facility] documented in this encounter Visit Diagnoses Diagnosis Acute on chronic respiratory failure wit h hypercapnia - Primary SOB (shortness of breath) Shortness of breath Hypoxia Hypoxemia Acute on chronic congestive heart failur e, unspecified heart failure type Respiratory failure, unspecified chronic ity, unspecified whether with hypoxia or hypercapnia Respiratory acidosis Acidosis Bilateral leg edema Edema Acute respiratory failure with hypercapn ia Acute respiratory failure Lower abdominal pain Abdominal pain, other specified site Tracheostomy status Choledocholithiasis Calculus of bile duct without mention of cholecystitis or obstruction Morbid obesity with BMI of 70 and over, adult Symptomatic anemia Acute on chronic diastolic CHF (congesti ve heart failure) Metabolic encephalopathy Mural thrombus of right atrium Acute on chronic respiratory failure wit h hypoxia and hypercapnia Hypercapnic respiratory failure Cholecystitis Cholecystitis, unspecified Tachycardia Tachycardia, unspecified Anxiety Anxiety state, unspecified Essential hypertension Unspecified essential hypertension Pulmonary hypertension Other chronic pulmonary heart diseases Pickwickian syndrome Obesity hypoventilation syndrome Morbid obesity Restrictive airway disease Other diseases of lung, not elsewhere cl assified Prolonged Q-T interval on ECG Nonspecific abnormal electrocardiogram ( ECG) (EKG) documented in this encounter Administered Medications Medication Order MAR Action Action Date Dose Rate Site acetaminophen (TYLENOL) 160 mg/5 Given 11/06/2019 12:15 PM CDT 6 50 mg mL liquid 650 mg 650 mg, Oral, Q6HPRN, Starting 11/02/19 at 0735, Until Discontinued, Routine, Temp > 38.5 C, [place] Given 11/02/2019 7:36 AM CDT 650 mg acetaminophen-codeine (TYLENOL #3) 300-30 Given 2019 5:34 AM CDT 1 tablet mg tablet 1 tablet 1 tablet, Oral, Q4HPRN, Starting 11/04/19 at 1030, Until Discontinued, Routine, Pain (scale 4-6), Pain (scale 7-10) Given 11/14/2019 11:48 PM CDT 1 tablet Given 11/14/2019 3:31 PM CDT 1 tablet bacitracin-polymyxin b/nystatin/zinc oxide Given 11/13/2019 9:5 5 PM CDT ointment 1:1:1 (COMPOUNDED) Topical (Apply To Affected Areas), PRN, Starting 11/09/19 at 0829, Until Discontinued, Routine, Wound care Given 11/10/2019 12:42 AM CDT bumetanide (BUMEX) tablet 2 mg Given 11/15/2019 9:55 AM CDT 2 mg 2 mg, Enteral, QAM+PM, First dose on Mon10/27/19 at 1700, Until Discontinued, Routine Given 11/14/2019 5:50 PM CDT 2 mg Given 11/14/2019 10:22 AM CDT 2 mg clonazePAM (KLONOPIN) tablet 0.5 mg Given 11/15/2019 9:55 AM CDT 0.5 mg 0.5 mg, Oral, DAILY, First dose on Mon11/12/19 at 0900, Until Discontinued, Routine Given 11/14/2019 8:19 AM CDT 0.5 mg Given 11/13/2019 10:08 AM CDT 0.5 mg dextrose 10% (D10W) bolus infusion 100 m L Given 09/21/2019 11:00 AM CDT 100 mL 100 mL, IV Infusion, PRN - SEE INSTRUCTIONS, BG <= 70 a/w AMS or inability to take PO intake, Starting 09/21/19 at 1152, Dextrose 10% 250 mL bag contains: 10 gm = 100 mL 20 gm = 200 mL 25 gm = 250 mL (whole bag) The maximum rate at which dextrose can be infused without producing glycosuria is 0.5 g/kg/hour. BUD: If wrapper is open bag is good for 30 days at room temperature. , ipratropium-albuterol (DUONEB) 0.5 mg-3 mg(2.5 Given 0 11/15/2019 8:02 AM CDT 3 mL mg base)/3 mL nebulizer solution 3 mL 3 mL, Inhalation, Q6H, First dose on Janie 09/26/19 at 1800, Until Discontinued, Routine Given 11/15/2019 12:12 AM CDT 3 mL Given 11/14/2019 8:00 PM CDT 3 mL magnesium oxide (MAG-OX 400) tablet 800 mg Given 11/15/2019 9:55 AM CDT 800 mg 800 mg, Oral, DAILY, First dose on Mon11/10/19 at 0900, Until Discontinued, Routine Given 11/14/2019 8:19 AM CDT 800 mg Given 11/13/2019 10:08 AM CDT 800 mg medroxyPROGESTERone Given 11/04/2019 8:48 PM 150 mg Right Deltoid-IM (DEPO-PROVERA) injection 150 mg CDT 150 mg, Intramuscular, [id number], First dose on 11/04/19 at 1545, Until Discontinued, Routine metoprolol tartrate (LOPRESSOR) half tablet Given 07/2019 9:55 AM CDT 12.5 mg 12.5 mg 12.5 mg, Oral, BID, First dose on Tu11/05/19 at 2000, Until Discontinued, Routine Given 11/14/2019 9:03 PM CDT 12.5 mg Given 11/14/2019 10:22 AM CDT 12.5 mg multivitamin tablet 1 tablet Given 11/15/2019 9:55 AM CDT 1 tablet 1 tablet, Oral, DAILY, First dose on 11/09/19 at 0900, Until Discontinued, Routine Given 11/14/2019 8:19 AM CDT 1 tablet Given 11/13/2019 10:08 AM CDT 1 tablet pantoprazole (PROTONIX) EC tablet 40 mg Given 11/15/2019 9:55 AM CDT 40 mg 40 mg, Oral, BID, First dose on Mon10/30/19 at 2000, Until Discontinued, Routine Given 11/14/2019 9:03 PM CDT 40 mg Given 11/14/2019 8:19 AM CDT 40 mg PARoxetine (PAXIL) tablet 20 mg Given 11/15/2019 9:55 AM CDT 20 mg 20 mg, Oral, DAILY, First dose on Mon11/15/19 at 0900, Until Discontinued, Routine ramelteon (ROZEREM) tablet 8 mg Given 11/14/2019 9:03 PM CDT 8 mg 8 mg, Oral, QHS, First dose on Mon10/25/19 at 0130, Until Discontinued, Routine Given 11/13/2019 10:17 PM CDT 8 mg Given 11/12/2019 10:45 PM CDT 8 mg sennosides-docusate sodium (SENOKOT S) Given 11/15/2019 9:55 AM CDT 1 tablet 8.6-50 mg per tablet 1 tablet 1 tablet, Enteral, BID, First dose on Mon10/03/19 at 1130, Until Discontinued, Routine Given 11/14/2019 8:19 AM CDT 1 tablet Given 11/13/2019 10:08 AM CDT 1 tablet sodium chloride 7% (HYPER-OREN) nebulizer Given 11/15/2019 8:03 AM CDT 4 mL solution 4 mL 4 mL, Inhalation, Q6H, First dose on Mon10/21/19 at 1200, Until Discontinued, Routine Given 11/14/2019 8:16 PM CDT 4 mL Given 11/14/2019 12:52 PM CDT 4 mL warfarin (COUMADIN) tablet 12.5 mg Given 11/14/2019 5:50 PM CDT 12.5 mg 12.5 mg, Oral, DAILY AT 1700, First dose on Mon11/08/19 at 1700, Until Discontinued, Routine Given 11/13/2019 5:46 PM CDT 12.5 mg Given 11/12/2019 6:47 PM CDT 12.5 mg Medication Order MAR Action Action Date Dose Rate Site acetaminophen (TYLENOL) 160 mg/5 Given 10/05/2019 8:09 AM CDT 6 50 mg mL liquid 650 mg 650 mg, Enteral, Q6HPRN, Starting 09/22/19 at 1143, Until 10/06/19 at 0134, Routine, Temp > 38.5 C Given 10/03/2019 8:44 PM CDT 650 mg Given 09/30/2019 8:52 PM CDT 650 mg acetaminophen (TYLENOL) 160 mg/5 mL liquid Given 10/23/2019 2:01 AM CDT 650 mg 650 mg 650 mg, Enteral, Q6HPRN, Starting 10/06/19 at 0134, Until 11/02/19 at 0730, Routine, Temp > 38.5 C Given 10/17/2019 8:05 PM CDT 650 mg Given 10/08/2019 11:27 AM CDT 650 mg acetaminophen-codeine (TYLENOL #3) 300-30 Given 2019 8:55 AM CDT 1 tablet mg tablet 1 tablet 1 tablet, Oral, Q6HPRN, Starting 11/02/19 at 1212, Until 11/04/19 at 1028, Routine, Pain (scale 4-6), Pain (scale 7-10) Given 11/04/2019 2:39 AM CDT 1 tablet Given 11/03/2019 8:07 PM CDT 1 tablet acetylcysteine (MUCOMYST) 200 mg/mL (20 %) Given 10/25/2019 11:21 AM CDT 800 mg solution 800 mg 800 mg (4 mL), Endotracheal Tube, TID, First dose on 10/21/19 at 1400, Until Discontinued, Routine Given 10/25/2019 7:02 AM CDT 800 mg Given 10/24/2019 6:44 PM CDT 800 mg albuterol (PROVENTIL) 2.5 mg /3 mL (0.083 %) Given 3:22 AM CDT 2.5 mg nebulizer solution 2.5 mg 2.5 mg, Inhalation, Q4HPRN, 3 doses, Starting 10/27/19 at 0141, Until 11/10/19 at 1232, Routine, Shortness of Breath, Wheezing ampicillin-sulbactam (UNASYN) 1.5 g in NaCl Given 10/09/2019 6:42 AM CDT 1.5 g 0.9% (NS) 50 mL MINI-BAG 1.5 g, IV Piggyback, Q6H ABX, First dose on 10/05/19 at 2330, Until Discontinued, 50 mL, Reason for Anti-Infective: Empiric Therapy for Suspected Infection, Empiric Therapy Site: Respiratory, Duration of therapy: 7 days Given 10/09/2019 12:13 AM CDT 1.5 g Given 10/08/2019 5:53 PM CDT 1.5 g ampicillin-sulbactam (UNASYN) 3 g in NaCl 0.9% Given 0 09/25/2019 10:08 AM CDT 3 g (NS) 100 mL IV piggyback 3 g, IV Piggyback, Q6H ABX, First dose on 09/22/19 at 1600, Until Discontinued, 100 mL, Reason for Anti-Infective: Documented Infection, Documented Infection Site: Respiratory, Duration of Therapy: 7 days Given 09/25/2019 3:48 AM CDT 3 g Given 09/24/2019 9:31 PM CDT 3 g ampicillin-sulbactam (UNASYN) 3 g in NaCl 0.9% Given 0 09/26/2019 3:42 AM CDT 3 g (NS) 100 mL IV piggyback 3 g, IV Piggyback, Q6H ABX, 16 doses, First dose on Mon09/25/19 at 1600, Last dose on Mon09/29/19 at 1000, 100 mL, Reason for Anti-Infective: Documented Infection, Documented Infection Site: Respiratory, Duration of Therapy: 7 days Given 09/25/2019 10:00 PM CDT 3 g Given 09/25/2019 3:55 PM CDT 3 g ampicillin-sulbactam (UNASYN) 3 g in NaCl 0.9% Given 0 10/02/2019 6:37 AM CDT 3 g (NS) 100 mL IV piggyback 3 g, IV Piggyback, Q6H ABX, First dose on 09/30/19 at 1200, Until Discontinued, 100 mL, Reason for Anti-Infective: Documented Infection, Documented Infection Site: Respiratory, Duration of Therapy: 7 days Given 10/02/2019 12:48 AM CDT 3 g Given 10/01/2019 5:21 PM CDT 3 g aspirin chewable tablet 81 mg Given 10/25/2019 10:25 AM CDT 81 mg 81 mg, Oral, DAILY, First dose on 09/21/19 at 0900, Until Discontinued, Routine Given 10/24/2019 9:33 AM CDT 81 mg Given 10/23/2019 7:29 AM CDT 81 mg aspirin chewable tablet 81 mg Given 10/28/2019 10:43 AM CDT 81 mg 81 mg, Enteral, DAILY, First dose on 10/26/19 at 0900, Until Discontinued, Routine Given 10/27/2019 8:46 AM CDT 81 mg Given 10/26/2019 9:28 AM CDT 81 mg aspirin tablet 325 mg Given 09/20/2019 11:26 PM CDT 325 mg 325 mg, Oral, ONCE, 1 dose, Mon09/20/19 at 2215, STAT barium sulfate (LIQUID E-Z PAQUE) 60 % (w/v) Given 4:01 PM CDT 10 mL oral suspension 10 mL 10 mL, Oral, ONCE, 1 dose, 10/28/19 at 1615, Routine barium sulfate (LIQUID E-Z PAQUE) 60 % Given 10/29/2019 4:00 PM CDT 30 mL Chest (w/v) oral suspension 30 mL 30 mL, Oral, ONCE, 1 dose, Tu10/29/19 at 1600, Routine barium sulfate-NO CHARGE- (VARIBAR NECTOR) 40 Given 4:08 PM CDT 40 mL % (w/v) oral suspension 40 mL 40 mL, Oral, ONCE, 1 dose, Mon10/28/19 at 1615, Routine bumetanide (BUMEX) injection 2 mg Given 09/27/2019 6:06 AM CDT 2 mg 2 mg, Slow IV Push, Q8H, First dose on Mon09/26/19 at 1400, Until Discontinued, Routine Given 09/26/2019 10:56 PM CDT 2 mg Given 09/26/2019 2:37 PM CDT 2 mg bumetanide (BUMEX) injection 2 mg Given 09/30/2019 8:33 PM CDT 2 mg 2 mg, Slow IV Push, BID, First dose on Mon09/30/19 at 2000, Until Discontinued, Routine bumetanide (BUMEX) injection 2 mg Given 10/04/2019 8:21 PM CDT 2 mg 2 mg, Slow IV Push, Q12H, First dose on Mon10/02/19 at 0830, Until Discontinued, Routine Given 10/04/2019 9:23 AM CDT 2 mg Given 10/03/2019 8:43 PM CDT 2 mg bumetanide (BUMEX) injection 2 mg Given 10/27/2019 8:46 AM CDT 2 mg 2 mg, Slow IV Push, Q12H, First dose on Mon10/06/19 at 0800, Until Discontinued, Routine Given 10/26/2019 8:29 PM CDT 2 mg Given 10/26/2019 9:28 AM CDT 2 mg bumetanide (BUMEX) injection 3 mg Given 09/29/2019 1:57 PM CDT 3 mg 3 mg, Slow IV Push, Q8H, First dose on Mon09/27/19 at 1400, Until Discontinued, Routine Given 09/29/2019 6:11 AM CDT 3 mg Given 09/28/2019 9:37 PM CDT 3 mg bumetanide (BUMEX) injection 3 mg Given 09/30/2019 8:49 AM CDT 3 mg 3 mg, Slow IV Push, BID, First dose on Mon09/30/19 at 0800, Until Discontinued, Routine clonazePAM (KLONOPIN) tablet 0.25 mg Given 11/06/2019 8:54 PM CDT 0.25 mg 0.25 mg, Oral, BID, First dose on [place] 11/03/19 at 2000, Until Discontinued, Routine Given 11/06/2019 8:06 AM CDT 0.25 mg Given 11/05/2019 11:13 PM CDT 0.25 mg clonazePAM (KLONOPIN) tablet 0.5 mg Given 11/03/2019 10:07 AM CDT 0.5 mg 0.5 mg, Oral, BID, First dose on [facility] 10/31/19 at 2000, Until Discontinued, Routine Given 11/02/2019 9:43 PM CDT 0.5 mg Given 11/02/2019 7:37 AM CDT 0.5 mg clonazePAM (KLONOPIN) tablet 0.5 mg Given 11/11/2019 10:50 AM CDT 0.5 mg 0.5 mg, Oral, BID, First dose on [place] 11/07/19 at 2000, Until Discontinued, Routine Given 11/10/2019 9:02 PM CDT 0.5 mg Given 11/10/2019 9:06 AM CDT 0.5 mg clonazePAM (KLONOPIN) tablet 1 mg Given 10/07/2019 11:07 AM CDT 1 mg 1 mg, Oral, DAILY, First dose on Mon10/07/19 at 1100, Until Discontinued, Routine clonazePAM (KLONOPIN) tablet 1 mg Given 10/09/2019 8:27 PM CDT 1 mg 1 mg, Oral, Q8H, First dose on Mon10/08/19 at 0600, Until Discontinued, Routine Given 10/09/2019 2:25 PM CDT 1 mg Given 10/09/2019 6:30 AM CDT 1 mg clonazePAM (KLONOPIN) tablet 1 mg Given 10/14/2019 5:09 AM CDT 1 mg 1 mg, Enteral, Q6H, First dose on Mon10/11/19 at 0000, Until Discontinued, Routine Given 10/14/2019 12:29 AM CDT 1 mg Given 10/13/2019 5:58 PM CDT 1 mg clonazePAM 0.1 mg/mL oral suspension 0.5 mg Given 10/25/2019 10:25 AM CDT 0.5 mg 0.5 mg, Enteral, TID, First dose on Mon10/25/19 at 0800, Until Discontinued, Routine clonazePAM 0.1 mg/mL oral suspension 0.5 mg Given 10/30/2019 9:41 PM CDT 0.5 mg 0.5 mg, Enteral, TID, First dose on Mon10/29/19 at 0800, Until Discontinued, Routine Given 10/30/2019 3:11 PM CDT 0.5 mg Given 10/30/2019 9:40 AM CDT 0.5 mg clonazePAM 0.1 mg/mL oral suspension 1 m g Given 10/28/2019 11:27 PM CDT 1 mg 1 mg, Enteral, TID, First dose on Mon10/25/19 at 1400, Until Discontinued, Routine Given 10/28/2019 10:43 AM CDT 1 mg Given 10/27/2019 9:01 PM CDT 1 mg clonazePAM 0.1 mg/mL oral suspension 1.5 mg Given 10/24/2019 9:16 PM CDT 1.5 mg 1.5 mg, Enteral, TID, First dose on Mon10/24/19 at 2000, Until Discontinued, Routine D5W IV infusion 1,000 mL Dose/Rate Verify 09/25/2019 8:00 PM CDT 10 mL/hr at 10 mL/hr, IV Infusion, CONTINUOUS, Starting 09/21/19 at 1300, Until [place] 09/26/19 at 1248, Routine New Bag 09/21/2019 1:02 PM CDT 1,000 mL 10 mL/hr D5W IV infusion 250 mL New Bag 10/01/2019 5:55 PM CDT 250 mL 50 mL/hr at 50 mL/hr, IV Infusion, ONCE, 1 dose, 10/01/19 at 1830, Routine D5W IV infusion 500 mL New Bag 09/27/2019 10:07 PM CDT 500 mL 50 mL/hr at 50 mL/hr, IV Infusion, CONTINUOUS, Starting 09/27/19 at 2300, Until 09/28/19 at 0629, Routine D5W IV infusion 500 mL New Bag 10/02/2019 8:07 PM CDT 500 mL 75 mL/hr at 75 mL/hr, IV Infusion, ONCE, 1 dose, 10/02/19 at 2015, Routine dexMEDEtomidine 200 mcg in New Bag 09/26/2019 2:28 PM 0.2 mcg /kg/hr 11.15 mL/hr 0.9 % NaCl 50 mL (PRECEDEX) CDT RTU IV infusion 0.2-1.5 mcg/kg/hr 223 kg (11.15-83.625 mL/hr, rounded to 11.15-83.63 mL/hr), IV Infusion, TITRATE, Sedation-RASS score (0 to -1), Starting [place] 09/22/19 at 1549, Initiate infusion at 0.2 mcg/kg/hr and titrate by 0.1 mcg/kg/hr every 30 minutes to goal sedation score. Maximum dose = 1.5 mcg/kg/hr. If goal not maintained at maximum allowed dose, contact prescriber., New Bag 09/26/2019 10:50 AM CDT 0.2 mcg/kg/hr 11.15 mL/hr New Bag 09/22/2019 3:01 PM CDT 0.2 mcg/kg/hr 11.15 mL/hr dexMEDEtomidine 200 mcg in New Bag 10/06/2019 12:30 PM 1 mcg/kg/hr 16.55 mL/hr 0.9 % NaCl 50 mL (PRECEDEX) CDT RTU IV infusion 0.2-1.5 mcg/kg/hr 66.2 kg [place] weight (3.31-24.825 mL/hr, rounded to 3.31-24.83 mL/hr), IV Infusion, TITRATE, Sedation-RASS score (0 to -1), Starting [place] 10/03/19 at 1228, Initiate infusion at 0.2 mcg/kg/hr and titrate by 0.1 mcg/kg/hr every 30 minutes to goal sedation score. Maximum dose = 1.5 mcg/kg/hr. If goal not maintained at maximum allowed dose, contact prescriber., New Bag 10/06/2019 11:33 AM CDT 1 mcg/kg/hr 16.55 mL/hr New Bag 10/06/2019 10:30 AM CDT 1 mcg/kg/hr 16.55 mL/hr dexMEDEtomidine 400 mcg in New Bag 10/23/2019 7:27 AM 0.5 mcg /kg/hr 26.25 mL/hr 0.9 % NaCl 100 mL (PRECEDEX) CDT RTU IV infusion 0.2-1.5 mcg/kg/hr 210 kg (10.5-78.75 mL/hr), IV Infusion, TITRATE, Sedation-RASS score (0 to -1), Starting 10/06/19 at 1408, Initiate infusion at 0.2 mcg/kg/hr and titrate by 0.1 mcg/kg/hr every 30 minutes to goal sedation score. Maximum dose = 1.5 mcg/kg/hr. If goal not maintained at maximum allowed dose, contact prescriber., New Bag 10/23/2019 4:26 AM CDT 0.7 mcg/kg/hr 36.75 mL/hr Bag 10/23/2019 1:48 AM CDT 0.7 mcg/kg/hr 36.75 mL/hr diphenhydrAMINE (BENADRYL) injection 25 mg Given 10/24/2019 9:31 AM CDT 25 mg 25 mg, Slow IV Push, ONCE, 1 dose, Jan[place] 10/24/19 at 0830, Routine diphenhydrAMINE (BENADRYL) injection 50 mg Given 10/24/2019 5:57 PM CDT 50 mg 50 mg, Slow IV Push, ONCE, 1 dose, [place] 10/24/19 at 1400, Routine enoxaparin (LOVENOX) injection 40 mg Given 10/03/2019 8:06 AM CDT 40 mg Abdo men-SC 40 mg, Subcutaneous, Q24H, First dose on Mon10/02/19 at 0900, Until Discontinued, Routine Given 10/02/2019 8:31 AM CDT 40 mg Abdo men-SC enoxaparin (LOVENOX) injection 40 mg Given 10/29/2019 11:18 AM CDT 40 mg Abdo men-SC 40 mg, Subcutaneous, Q24H, First dose on 10/05/19 at 0900, Until Discontinued, Routine Given 10/28/2019 10:43 AM CDT 40 mg Abdo men-SC Given 10/27/2019 8:57 AM CDT 40 mg Abdo men-SC famotidine (PEPCID) 40 mg/5 mL (8 mg/mL) Given 10/25/2019 10:25 AM CDT 40 mg suspension 40 mg 40 mg, Enteral, Q24H, First dose on 10/09/19 at 0900, Until Discontinued, Routine Given 10/24/2019 9:33 AM CDT 40 mg Given 10/23/2019 7:29 AM CDT 40 mg FENTanyl PF (SUBLIMAZE (PF)) Restarted 09/22/2019 11:39 AM CDT 7 5 mcg/hr 7.5 mL/hr 2,500 mcg in NaCl 0.9% (NS) 250 mL infusion 25-200 mcg/hr (2.5-20 mL/hr), IV Infusion, TITRATE, CPOT/Pain Scale Goals Determined by Provider, Starting 09/21/19 at 0321, Initiate infusion at 25 mcg/hr. Titrate by 50 mcg/hr every 1 minute to 15 minutes to identified goal pain and/or sedation scores. Maximum dose = 200 mcg/hr. If goal not maintained at maximum allowed dose, contact prescriber., New Bag 09/21/2019 9:10 PM CDT 150 mcg/hr 15 mL/hr Rate Change 09/21/2019 6:17 AM CDT 150 mcg/hr 15 mL/hr FENTanyl PF (SUBLIMAZE (PF)) New Bag 09/28/2019 7:20 PM CDT 1 50 mcg/hr 15 mL/hr 2,500 mcg in NaCl 0.9% (NS) 250 mL infusion 25-200 mcg/hr (2.5-20 mL/hr), IV Infusion, TITRATE, CPOT/Pain Scale Goals Determined by Provider, Starting 09/22/19 at 1558, Initiate infusion at 25 mcg/hr. Titrate by 25 mcg/hr every 1 minute to 15 minutes to identified goal pain and/or sedation scores. Maximum dose = 200 mcg/hr. If goal not maintained at maximum allowed dose, contact prescriber., Dose/Rate Verify 09/28/2019 7:09 PM CDT 150 mcg/hr 15 mL/hr Dose/Rate Verify 09/28/2019 8:00 AM CDT 150 mcg/hr 15 mL/hr FENTanyl PF (SUBLIMAZE (PF)) Rate Change 10/14/2019 2:16 AM CDT 1 00 mcg/hr 2 mL/hr 2,500 mcg in Total Volume 50 mL infusion 25-200 mcg/hr (0.5-4 mL/hr), IV Infusion, TITRATE, CPOT/Pain Scale Goals Determined by Provider, Starting 09/29/19 at 0621, Initiate infusion at 25 mcg/hr. Titrate by 25 mcg/hr every 1 minute to 15 minutes to identified goal pain and/or sedation scores. Maximum dose = 200 mcg/hr. If goal not maintained at maximum allowed dose, contact prescriber., Rate Change 10/13/2019 5:56 PM CDT 75 mcg/hr 1.5 mL/hr Rate Change 10/13/2019 1:39 PM CDT 100 mcg/hr 2 mL/hr FENTanyl PF (SUBLIMAZE (PF)) injection 100 Given 09/20 4:12 AM CDT 100 mcg mcg 100 mcg, Slow IV Push, ONCE, 1 dose, 09/21/19 at 0500, Routine FENTanyl PF (SUBLIMAZE (PF)) injection 50 Given 10/06/2019 1:17 PM CDT 50 mcg mcg 50 mcg, Slow IV Push, PRN - SEE INSTRUCTIONS, 7 doses, Starting 09/21/19 at 0221, Until 10/14/19 at 1102, JEFF, Initiation of Analgesia Given 10/05/2019 11:34 AM CDT 50 mcg Given 10/04/2019 5:55 AM CDT 50 mcg FENTanyl PF (SUBLIMAZE (PF)) injection 50 Given 10/24/2019 6:02 PM CDT 50 mcg mcg 50 mcg, Slow IV Push, ONCE, 1 dose, [place] 10/24/19 at 1730, Routine FLUoxetine (PROZAC) 20 mg/5 mL (4 mg/mL) Given 10/27/2019 8:46 AM CDT 10 mg solution 10 mg 10 mg, Enteral, DAILY, First dose on Mon10/25/19 at 0900, Until Discontinued, Routine Given 10/26/2019 9:28 AM CDT 10 mg Given 10/25/2019 10:25 AM CDT 10 mg FLUoxetine (PROZAC) 20 mg/5 mL (4 mg/mL) Given 10/31/2019 9:32 AM CDT 20 mg solution 20 mg 20 mg, Enteral, DAILY, First dose on 10/28/19 at 0900, Until Discontinued, Routine Given 10/30/2019 9:40 AM CDT 20 mg Given 10/29/2019 11:17 AM CDT 20 mg furosemide (LASIX) injection 40 mg Given 09/23/2019 7:59 PM CDT 40 mg 40 mg, Slow IV Push, TID, First dose on 09/23/19 at 2000, Until Discontinued, Routine furosemide (LASIX) injection 40 mg Given 09/24/2019 8:54 AM CDT 40 mg 40 mg, Slow IV Push, Q8H, First dose on Tu09/24/19 at 0700, Until Discontinued, Routine furosemide (LASIX) injection 80 mg Given 09/21/2019 3:06 AM CDT 80 mg 80 mg, Slow IV Push, Q8H ABX, First dose on 09/21/19 at 0245, Until Discontinued, Routine furosemide (LASIX) injection 80 mg Given 09/21/2019 7:30 AM CDT 80 mg 80 mg, Slow IV Push, Q6H, First dose on 09/21/19 at 0600, Until Discontinued, Routine furosemide (LASIX) injection 80 mg Given 09/22/2019 8:51 AM CDT 80 mg 80 mg, Slow IV Push, Q12H, First dose on 09/21/19 at 2000, Until Discontinued, Routine Given 09/21/2019 7:30 PM CDT 80 mg furosemide (LASIX) injection 80 mg Given 09/23/2019 2:17 PM CDT 80 mg 80 mg, Slow IV Push, TID, First dose on 09/22/19 at 1445, Until Discontinued, Routine Given 09/23/2019 7:26 AM CDT 80 mg Given 09/22/2019 7:59 PM CDT 80 mg furosemide (LASIX) injection 80 mg Given 09/26/2019 5:21 AM CDT 80 mg 80 mg, Slow IV Push, Q8H, First dose on Tu09/24/19 at 1400, Until Discontinued, Routine Given 09/25/2019 10:00 PM CDT 80 mg Given 09/25/2019 3:55 PM CDT 80 mg haloperidol lactate (HALDOL) injection 2 mg Given 10/16/2019 3:24 AM CDT 2 mg 2 mg, Slow IV Push, ONCE, 1 dose, Mon10/16/19 at 0400, Routine heparin (1,000 unit/mL, 10 mL vial) for Given 10/30/19 9:38 PM CDT 3,000 Units Rebolusing FOR REBOLUSING, Starting Mon10/29/19 at 1552, Until Mon11/12/19 at 0353, Routine, Dosing based on aPTT testing parameters (refer to continuous heparin drip order)., Given 10/30/2019 12:16 PM CDT 4,000 Units heparin (porcine) injection Given 10/01/2019 5:24 AM CDT 5,000 Units Abdomen-SC 5,000 Units 5,000 Units, Subcutaneous, Q8H, First dose on Mon09/21/19 at 0600, Until Discontinued, Routine Given 09/30/2019 10:13 PM CDT 5,000 Units Abdo men-SC Given 09/30/2019 3:13 PM CDT 5,000 Units Abdo men-SC heparin 1000 unit/mL injection Soln Given 10/29/2019 6:52 PM CD T 4,000 Units 4,000 Units 4,000 Units, IV Push, ONCE, 1 dose, Mon10/29/19 at 1600, Routine heparin 1000 unit/mL injection Soln Given 10/30/2019 4:20 AM CD T 4,000 Units 4,000 Units 4,000 Units, IV Push, ONCE, 1 dose, Mon10/30/19 at 0430, Routine heparin 25,000 unit/250 mL (Premixed Bag ) in 0.45 % NS New 11/13/2019 2,300 23 2,300 Units/hr (23 mL/hr), IV Infusion, TITRATE, Bag 11:18 PM Units/hr mL/hr Parameters in Admin. Instr., Starting Mon11/12/19 at CDT 2030, CAUTION - If LMWH given in ER, AVOID bolus and start dose/drip 12 hours after ER dosage. Must program rate using programmable infusion pump. Check with the ordering provider first prior to any administration should the patient be on existing/additional anticoagulant therapy. DO NOT ADJUST INITIAL BOLUS OR INITIAL INFUSION RATE Range, Dosing and Testing: FOR [facility] AND [facility] ONLY - aPTT < 35: Bolus 5000 units, increase rate 300 units/hr - aPTT 35-44: Bolus 3000 units, increase rate 200 units/hr - aPTT 45-54: Increase rate 100 units/hr - aPTT 55-85: NO CHANGE - aPTT 86-95: Decrease rate 100 units/hr - aPTT 96-120: Hold 30 minutes, decrease rate 150 units/hr - aPTT > 120: Hold 60 minutes, decrease rate 200 units/hr Check aPTT 6 hours after initiation, then Q6H after every change, aPTT Q12H once therapeutic levels are reached. FOR [facility] and [facility] ONLY - aPTT < 40: Bolus 5000 units, increase rate 300 units/hr - aPTT 40-49: Bolus 3000 units, increase rate 200 units/hr - aPTT 50-59: Increase rate 100 units/hr - aPTT 60-85: NO CHANGE - aPTT 86-95: Decrease rate 100 units/hr - aPTT 96-120: Hold 30 minutes, decrease rate 150 units/hr - aPTT > 120: Hold 60 minutes, decrease rate 200 units/hr Check aPTT 6 hours after initiation, then Q6H after every change, aPTT Q12H once therapeutic levels are reached., New Bag 11/13/2019 10:47 AM CDT 2,300 Units/hr 23 mL/hr Dose/Rate Verify 11/13/2019 5:31 AM CDT 2,300 Units/hr 23 mL/hr heparin 25,000 unit/250 mL (Premixed Bag ) in D5W New 10/29/2019 1,000 10 1,000 Units/hr (10 mL/hr), IV Infusion, TITRATE, Bag 6:53 PM C DT Units/hr mL/hr Parameters in Admin. Instr., Starting Mon10/29/19 at 1652, CAUTION - If LMWH given in ER, AVOID bolus and start dose/drip 12 hours after ER dosage. Must program rate using programmable infusion pump. Check with the ordering provider first prior to any administration should the patient be on existing/additional anticoagulant therapy. DO NOT ADJUST INITIAL BOLUS OR INITIAL INFUSION RATE Range, Dosing and Testing: FOR [facility] ONLY - aPTT < 35: Bolus 5000 units, increase rate 300 units/hr - aPTT 35-44: Bolus 3000 units, increase rate 200 units/hr - aPTT 45-54: Increase rate 100 units/hr - aPTT 55-85: NO CHANGE - aPTT 86-95: Decrease rate 100 units/hr - aPTT 96-120: Hold 30 minutes, decrease rate 150 units/hr - aPTT > 120: Hold 60 minutes, decrease rate 200 units/hr Check aPTT 6 hours after initiation, then Q6H after every change, aPTT Q12H once therapeutic levels are reached. FOR [facility] ONLY - aPTT < 40: Bolus 3000 units, increase rate 100 units/hr - aPTT 40-49: Increase rate 50 units/hr - aPTT 50-70: NO CHANGE - aPTT 71-85: Decrease rate 50 units/hr - aPTT 86-100: Hold 30 minutes, decrease rate 100 units/hr -aPTT 101-150: Hold 60 minutes, decrease rate 150 units/hr - aPTT > 150: Hold 60 minutes, decrease rate 300 units/hr Check aPTT 6 hours after initiation, then Q6H after every change, aPTT Q12H once therapeutic levels are reached., heparin 25,000 unit/250 mL (Premixed Bag ) in D5W New 11/11/2019 2,300 23 1,000 Units/hr (10 mL/hr), IV Infusion, TITRATE, Bag 1:14 AM C DT Units/hr mL/hr Parameters in Admin. Instr., Starting 10/30/19 at 0415, CAUTION - If LMWH given in ER, AVOID bolus and start dose/drip 12 hours after ER dosage. Must program rate using programmable infusion pump. Check with the ordering provider first prior to any administration should the patient be on existing/additional anticoagulant therapy. DO NOT ADJUST INITIAL BOLUS OR INITIAL INFUSION RATE Range, Dosing and Testing: FOR [facility] ONLY - aPTT < 35: Bolus 4000 units, increase rate 300 units/hr - aPTT 35-44: Bolus 3000 units, increase rate 200 units/hr - aPTT 45-54: Increase rate 100 units/hr - aPTT 55-85: NO CHANGE - aPTT 86-95: Decrease rate 100 units/hr - aPTT 96-120: Hold 30 minutes, decrease rate 150 units/hr - aPTT > 120: Hold 60 minutes, decrease rate 200 units/hr Check aPTT 6 hours after initiation, then Q6H after every change, aPTT Q12H once therapeutic levels are reached. FOR [facility] ONLY - aPTT < 40: Bolus 3000 units, increase rate 100 units/hr - aPTT 40-49: Increase rate 50 units/hr - aPTT 50-70: NO CHANGE - aPTT 71-85: Decrease rate 50 units/hr - aPTT 86-100: Hold 30 minutes, decrease rate 100 units/hr -aPTT 101-150: Hold 60 minutes, decrease rate 150 units/hr - aPTT > 150: Hold 60 minutes, decrease rate 300 units/hr Check aPTT 6 hours after initiation, then Q6H after every change, aPTT Q12H once therapeutic levels are reached., New Bag 11/10/2019 1:45 PM CDT 2,300 Units/hr 23 mL/hr New Bag 11/10/2019 3:25 AM CDT 2,300 Units/hr 23 mL/hr HYDROcodone-acetaminophen (HYCET) 7.5-325 Given 10/04/2019 6:28 PM CDT 7.5 mg mg/15 mL solution 7.5 mg 7.5 mg, Enteral, Q6H, First dose on Janie 10/03/19 at 1800, Until Discontinued, Routine Given 10/04/2019 6:45 AM CDT 7.5 mg Given 10/04/2019 12:35 AM CDT 7.5 mg iohexol (OMNIPAQUE 350 BULK-100 mL) Given 10/29/2019 2:59 PM CD T 100 mL injection 100 mL 100 mL, Intravenous, ONCE, 1 dose, Tu10/29/19 at 1515, Routine ipratropium-albuterol (DUONEB) 0.5 mg-3 mg(2.5 Given 0 10/16/2019 7:08 PM CDT 3 mL mg base)/3 mL nebulizer solution 3 mL 3 mL, Inhalation, Q6HPRN, Starting 09/21/19 at 0221, Until 10/23/19 at 1508, Routine, Wheezing Given 10/13/2019 7:39 PM CDT 3 mL Given 10/03/2019 2:26 PM CDT 3 mL ipratropium-albuterol (DUONEB) 0.5 mg-3 mg(2.5 Given 0 09/26/2019 10:13 AM CDT 3 mL mg base)/3 mL nebulizer solution 3 mL 3 mL, Inhalation, QID, First dose on 09/21/19 at 0330, Until Discontinued, Routine Given 09/26/2019 6:41 AM CDT 3 mL Given 09/25/2019 8:14 PM CDT 3 mL iron dextran (INFED) 1,000 mg in NaCl New Bag 10/01/2019 11:10 AM CDT 1,000 mg 0.9% (NS) 500 mL IV infusion 1,000 mg, IV Infusion, ONCE, 1 dose, 10/01/19 at 0930, 500 mL iron dextran (INFED) 25 mg in NaCl 0.9% (NS) Given 10:47 AM CDT 25 mg 100 mL IV piggyback 25 mg, IV Piggyback, ONCE, 1 dose, 10/01/19 at 0930, 100 mL KCL (POTASSIUM CHLORIDE) 20 mEq in NaCl 0.9% Given 10:01 PM CDT 20 mEq (NS) piggyback 20 mEq, IV Piggyback, ONCE, 1 dose, 09/27/19 at 2215, 250 mL KCL (POTASSIUM CHLORIDE) 30 mEq in NaCl 0.9% Given 03/2020 10:07 PM CDT 30 mEq (NS) piggyback 30 mEq, IV Piggyback, ONCE, 1 dose, 09/23/19 at 2130, 250 mL KCL (POTASSIUM CHLORIDE) 30 mEq in NaCl 0.9% Given 3:46 AM CDT 30 mEq (NS) piggyback 30 mEq, IV Piggyback, ONCE, 1 dose, 09/28/19 at 0430, 250 mL KCL (POTASSIUM CHLORIDE) 40 mEq in NaCl 0.9% Given 02/2020 6:37 AM CDT 40 mEq (NS) piggyback 40 mEq, IV Piggyback, ONCE, 1 dose, [place] 09/22/19 at 0645, 250 mL KCL (POTASSIUM CHLORIDE) 40 mEq in NaCl 0.9% Given 6:24 AM CDT 40 mEq (NS) piggyback 40 mEq, IV Piggyback, ONCE, 1 dose, 09/27/19 at 0700, 250 mL KCL (POTASSIUM CHLORIDE) 40 mEq in NaCl 0.9% Given 5:37 AM CDT 40 mEq (NS) piggyback 40 mEq, IV Piggyback, ONCE, 1 dose, 10/09/19 at 0615, 250 mL KCL (POTASSIUM CHLORIDE) 40 mEq in NaCl 0.9% Given 8:46 AM CDT 40 mEq (NS) piggyback 40 mEq, IV Piggyback, ONCE, 1 dose, [facility] 10/10/19 at 0615, 250 mL KCL (POTASSIUM CHLORIDE) 40 mEq in NaCl 0.9% Given 6:30 AM CDT 40 mEq (NS) piggyback 40 mEq, IV Piggyback, ONCE, 1 dose, 10/12/19 at 0700, 250 mL KCL (POTASSIUM CHLORIDE) 40 mEq in NaCl 0.9% Given 3:36 AM CDT 40 mEq (NS) piggyback 40 mEq, IV Piggyback, ONCE, 1 dose, [place] 10/13/19 at 0415, 250 mL KCL (POTASSIUM CHLORIDE) 40 mEq in NaCl 0.9% Given 09/2019 9:29 AM CDT 40 mEq (NS) piggyback 40 mEq, IV Piggyback, ONCE, 1 dose, Mon10/18/19 at 1000, 250 mL KCL 20 mEq/15 mL solution 40 mEq Given 09/26/2019 5:52 PM CDT 40 mEq 40 mEq, Enteral, ONCE, 1 dose, [facility] 09/26/19 at 1645, Routine KCL 20 mEq/15 mL solution 40 mEq Given 10/01/2019 8:32 PM CDT 40 mEq 40 mEq, Oral, BID, 2 doses, First dose on Mon10/01/19 at 0815, Last dose on Mon10/01/19 at 2000, Routine Given 10/01/2019 8:14 AM CDT 40 mEq KCL 20 mEq/15 mL solution 40 mEq Given 10/26/2019 9:28 AM CDT 40 mEq 40 mEq, Oral, ONCE, 1 dose, 10/26/19 at 0945, Routine LORazepam (ATIVAN) 2 mg/mL concentrated Given 10/23/2019 12:26 P M CDT 0.25 mg solution 0.25 mg 0.25 mg, Enteral, Q6HPRN, Starting Mon10/21/19 at 1654, Until Mon10/23/19 at 1508, Routine, Anxiety Given 10/22/2019 11:18 PM CDT 0.25 mg Given 10/22/2019 12:52 PM CDT 0.25 mg LORazepam (ATIVAN) injection 0.5 mg Given 10/21/2019 2:27 PM CDT 0.5 mg 0.5 mg, Slow IV Push, ONCE, 1 dose, 10/21/19 at 1530, Routine LORazepam (ATIVAN) injection 1 mg Given 10/24/2019 1:01 AM CDT 1 mg 1 mg, Slow IV Push, ONCE, 1 dose, [facility] 10/24/19 at 0200, Routine LORazepam (ATIVAN) injection 1 mg Given 10/24/2019 10:52 AM CDT 1 mg 1 mg, Slow IV Push, ONCE, 1 dose, [facility] 10/24/19 at 1115, Routine LORazepam (ATIVAN) tablet 0.5 mg Given 10/23/2019 5:31 PM CDT 0.5 mg 0.5 mg, Oral, ONCE, 1 dose, Mon10/23/19 at 1715, Routine magnesium oxide (MAG-OX 400) tablet 400 mg Given 11/02/2019 9:44 PM CDT 400 mg 400 mg, Oral, TID, 3 doses, First dose on 11/02/19 at 0800, Last dose on 11/02/19 at 1999, Routine Given 11/02/2019 2:22 PM CDT 400 mg Given 11/02/2019 7:36 AM CDT 400 mg magnesium oxide (MAG-OX 400) tablet 800 mg Given 11/06/2019 8:54 PM CDT 800 mg 800 mg, Oral, BID, 2 doses, First dose on Mon11/06/19 at 1130, Last dose on Mon11/06/19 at 2000, Routine Given 11/06/2019 12:18 PM CDT 800 mg magnesium sulfate in water 2 gram/50 mL (4 %) New 6:30 AM CDT 2 g infusion 2 g 2 g, IV Piggyback, ONCE, 1 dose, 10/09/19 at 0545, Routine magnesium sulfate in water 2 gram/50 mL (4 %) New 6:30 AM CDT 2 g infusion 2 g 2 g, IV Piggyback, ONCE, 1 dose, 10/12/19 at 0700, Routine magnesium sulfate in water 4 gram/50 mL (8 %) New 5:43 AM CDT 4 g IV Piggyback 4 g 4 g, IV Piggyback, ONCE, 1 dose, 09/22/19 at 0330, Routine magnesium sulfate in water 4 gram/50 mL (8 %) New Bag 3:42 AM CDT 4 g IV Piggyback 4 g 4 g, IV Piggyback, ONCE, 1 dose, [place] 10/13/19 at 0415, Routine magnesium sulfate in water 4 gram/50 mL (8 %) New Bag 4:30 AM CDT 4 g IV Piggyback 4 g 4 g, IV Piggyback, ONCE, 1 dose, Mon11/08/19 at 0315, Routine magnesium sulfate in water 4 gram/50 mL (8 %) New Bag 3:24 AM CDT 4 g IV Piggyback 4 g 4 g, IV Piggyback, ONCE, 1 dose, [place] 11/10/19 at 0330, Routine melatonin (MELATIN) tablet 9 mg Given 10/23/2019 10:31 PM CDT 9 mg 9 mg, Oral, QHS, First dose on Mon10/23/19 at 2100, Until Discontinued, Routine meropenem (MERREM) 500 mg in NaCl 0.9% (NS) Given 09/12 8:50 AM CDT 500 mg 50 mL MINI-BAG 500 mg, IV Piggyback, Administer over 60 Minutes, Q6H ABX, First dose on Mon09/26/19 at 1030, Until Discontinued, JEFF, Restricted use approved by: [address], Reason for Anti-Infective: Documented Infection, Documented Infection Site: Respiratory, Duration of Therapy: 7 days Given 09/30/2019 3:12 AM CDT 500 mg Given 09/29/2019 9:53 PM CDT 500 mg metOLazone (ZAROXOLYN) 1 mg/mL oral Given 10/04/2019 9:03 AM CD T 2.5 mg suspension 2.5 mg 2.5 mg, Oral, DAILY, First dose on Mon10/02/19 at 0900, Until Discontinued, Routine Given 10/03/2019 8:06 AM CDT 2.5 mg Given 10/02/2019 8:37 AM CDT 2.5 mg metoprolol tartrate (LOPRESSOR) half tablet Given 10/13 8:46 AM CDT 12.5 mg 12.5 mg 12.5 mg, Oral, BID, First dose on 10/26/19 at 2000, Until Discontinued, Routine Given 10/26/2019 9:00 PM CDT 12.5 mg metoprolol tartrate (LOPRESSOR) tablet 2 5 mg Given 11/05/2019 8:53 AM CDT 25 mg 25 mg, Oral, BID, First dose on 10/27/19 at 2000, Until Discontinued, Routine Given 11/04/2019 8:33 PM CDT 25 mg Given 11/04/2019 8:05 AM CDT 25 mg midazolam (VERSED) 50 mg in D5W New Bag 10/09/2019 11:23 AM CD T 10 mg/hr 10 mL/hr 50 mL infusion 1-10 mg/hr (1-10 mL/hr), IV Infusion, TITRATE, Sedation-RASS score (0 to -1), Starting 10/01/19 at 2016, Initiate infusion at 1 mg/hr and titrate by 1 mg/hr every 3 minutes to 10 minutes to goal sedation score. Maximum dose = 10 mg/hr. If goal not maintained at maximum allowed dose, contact prescriber., New Bag 10/09/2019 6:30 AM CDT 10 mg/hr 10 mL/hr 10/09/2019 1:32 AM CDT 10 mg/hr 10 mL/hr midazolam (VERSED) 50 mg in NaCl Restarted 09/22/2019 11:40 AM C DT 2 mg/hr 2 mL/hr 0.9% (NS) 50 mL infusion 1-10 mg/hr (1-10 mL/hr), IV Infusion, TITRATE, Sedation-RASS score (-1 to -2), Starting 09/21/19 at 0321, Initiate infusion at 1 mg/hr and titrate by 1 mg/hr every 3 minutes to 10 minutes to goal sedation score. Maximum dose = 10 mg/hr. If goal not maintained at maximum allowed dose, contact prescriber., New Bag 09/22/2019 1:08 AM CDT 5 mg/hr 5 mL/hr New Bag 09/21/2019 4:18 PM CDT 5 mg/hr 5 mL/hr midazolam (VERSED) 50 mg in NaCl Bag 10/01/2019 4:09 PM C DT 6 mg/hr 6 mL/hr 0.9% (NS) 50 mL infusion 1-10 mg/hr (1-10 mL/hr), IV Infusion, TITRATE, Sedation-RASS score (0 to -1), Starting 09/22/19 at 1821, Initiate infusion at 1 mg/hr and titrate by 1 mg/hr every 3 minutes to 10 minutes to goal sedation score. Maximum dose = 10 mg/hr. If goal not maintained at maximum allowed dose, contact prescriber., New Bag 10/01/2019 7:50 AM CDT 6 mg/hr 6 mL/hr Rate Change 10/01/2019 1:51 AM CDT 4 mg/hr 4 mL/hr midazolam (VERSED) injection 2 mg Given 10/06/2019 2:02 PM CDT 2 mg 2 mg, IV Push, PRN - SEE INSTRUCTIONS, 7 doses, Starting 09/21/19 at 0221, Until 10/06/19 at 1402, JEFF, Sedation to RASS score 0 to -1 Given 10/04/2019 6:38 AM CDT 2 mg Given 10/04/2019 5:55 AM CDT 2 mg midazolam (VERSED) STD 50mg in NaCl New Bag 10/14/2019 2:16 A M CDT 5 mg/hr 5 mL/hr 0.9% (NS) 50 mL infusion RTU 1-10 mg/hr (1-10 mL/hr), IV Infusion, TITRATE, Sedation-RASS score (0 to -1), Starting 10/09/19 at 1316, Initiate infusion at 1 mg/hr and titrate by 1 mg/hr every 3 minutes to 10 minutes to goal sedation score. Maximum dose = 10 mg/hr. If goal not maintained at maximum allowed dose, contact prescriber., New Bag 10/13/2019 5:12 PM CDT 5 mg/hr 5 mL/hr Rate Change 10/13/2019 1:40 PM CDT 5 mg/hr 5 mL/hr morpHINE injection 4 mg Given 10/23/2019 9:29 PM CDT 4 mg 4 mg, Slow IV Push, ONCE, 1 dose, 10/23/19 at 2230, Routine NaCl 0.9% (NS) IV infusion 1,000 mL New Bag 10/18/2019 3:30 PM CDT 500 mL 42 mL/hr at 42 mL/hr, IV Infusion, CONTINUOUS, Starting 10/18/19 at 1530, Until 10/18/19 at 1929, Routine NaCl 0.9% (NS) IV Line Priming and Flushing Given 01/2020 6:15 AM CDT 250 mL Fluid Only 250 mL 250 mL, IV Infusion, ONCE, 1 dose, 09/21/19 at 0615, 250 mL NORepinephrine (LEVOPHED) Dose/Rate 09/27/2019 7:10 0.01 mcg/kg/min 2.09 mL/hr 16 mg in NaCl 0.9% (NS) Verify PM CDT 250 mL infusion 0.05-1.5 mcg/kg/min 223 kg (10.4531-313.5938 mL/hr, rounded to 10.45-313.59 mL/hr), IV Infusion, TITRATE, MAP Goal > or = 60 mmHg, Starting [facility]ie 09/26/19 at 1232, Initiate titration at 0.05 mcg/kg/min. Increase by 0.01 mcg/kg/min every 30 seconds to 5 minutes as needed to reach and maintain goal blood pressure. Maximum dose = 1.5 mcg/kg/min. If goal not maintained at maximum allowed dose, contact prescriber., Rate Change 09/27/2019 1:48 PM CDT 0.02 mcg/kg/min 4.18 mL/hr Rate Change 09/27/2019 11:12 AM CDT 0.01 mcg/kg/min 2.09 mL/hr ondansetron (ZOFRAN (PF)) injection 4 mg Given 09/20/2019 11:41 PM CDT 4 mg 4 mg, Slow IV Push, ONCE, 1 dose, 09/21/19 at 0045, JEFF pantoprazole (PROTONIX) 2 mg/mL oral Given 10/08/2019 8:33 AM C DT 40 mg suspension 40 mg 40 mg, Enteral, DAILY, First dose on 09/21/19 at 0900, Until Discontinued, Routine Given 10/07/2019 10:48 AM CDT 40 mg Given 10/06/2019 8:24 AM CDT 40 mg pantoprazole (PROTONIX) 2 mg/mL oral Given 10/28/2019 10:42 AM C DT 40 mg suspension 40 mg 40 mg, Enteral, DAILY, First dose on 10/26/19 at 0900, Until Discontinued, Routine Given 10/27/2019 8:47 AM CDT 40 mg Given 10/26/2019 3:12 PM CDT 40 mg pantoprazole (PROTONIX) 2 mg/mL oral Given 10/29/2019 11:14 AM C DT 40 mg suspension 40 mg 40 mg, Enteral, BID, First dose on 10/28/19 at 2000, Until Discontinued, Routine Given 10/28/2019 11:27 PM CDT 40 mg paroxetine (PAXIL) 10 mg/5 mL suspension 10 Given 10/23/2019 7:29 AM CDT 10 mg mg 10 mg, Enteral, DAILY, First dose on 10/19/19 at 0900, Until Discontinued, Routine Given 10/22/2019 7:41 AM CDT 10 mg Given 10/21/2019 7:43 AM CDT 10 mg paroxetine (PAXIL) 10 mg/5 mL suspension 20 Given 10/24/2019 9:33 AM CDT 20 mg mg 20 mg, Enteral, DAILY, First dose on [facility]ie 10/24/19 at 0900, Until Discontinued, Routine perflutren protein-A microsphr (OPTISON) Given 09/23/2019 11:08 AM CDT 3 mL injection 3 mL 3 mL, IV Push, ONCE, 1 dose, 09/23/19 at 1315, Routine perflutren protein-A microsphr (OPTISON) Given 10/30/2019 9:30 AM CDT 3 mL injection 3 mL 3 mL, IV Push, ONCE, 1 dose, 10/30/19 at 1345, Routine piperacillin-tazobactam (ZOSYN) 4.5 gram/100 Given 8:00 AM CDT 4.5 g mL Piggyback RTU 4.5 g 4.5 g, IV Piggyback, Q6H ABX, First dose on [facility]ie 09/26/19 at 0745, Until Discontinued, 100 mL, Reason for Anti-Infective: Empiric Therapy for Suspected Infection, Empiric Therapy Site: Respiratory, Duration of therapy: 72 hours Polyethylene Glycol 3350 (MIRALAX) powde r 17 g Given 10/04/2019 9:03 AM CDT 17 g 17 g, Enteral, BID, First dose on Janie 09/26/19 at 2000, Until Discontinued, Routine Given 10/03/2019 7:16 PM CDT 17 g Given 10/03/2019 8:05 AM CDT 17 g Polyethylene Glycol 3350 (MIRALAX) powde r 17 g Given 11/07/2019 8:31 PM CDT 17 g 17 g, Enteral, BID, First dose on 10/05/19 at 0800, Until Discontinued, Routine Given 11/06/2019 8:53 PM CDT 17 g Given 11/03/2019 10:07 AM CDT 17 g potassium chloride 20 mEq/100 mL Given 09/25/2019 6:40 AM CDT 2 0 mEq 50 mL/hr (KCL) 20 mEq/100 mL RTU IVPB 20 mEq 20 mEq, IV Piggyback, ONCE, 1 dose, 09/25/19 at 0745, 100 mL potassium chloride 20 mEq/100 mL Given 09/26/2019 8:00 AM CDT 2 0 mEq 50 mL/hr (KCL) 20 mEq/100 mL RTU IVPB 20 mEq 20 mEq, IV Piggyback, ONCE, 1 dose, [facility] 09/26/19 at 0715, 100 mL propofol IV infusion Rate Change 09/21/2019 7:32 AM 15 mcg/kg/min 20.07 mL/hr 5-75 mcg/kg/min CDT 223 kg (6.69-100.35 mL/hr), IV Infusion, TITRATE, Sedation-RASS score (0 to -1), Starting 09/21/19 at 0337, Initiate infusion at 5 mcg/kg/min and titrate by 5 mcg/kg/min every 30 seconds to 10 minutes to goal sedation score. Maximum dose = 75 mcg/kg/min. If goal not maintained at maximum allowed dose, contact prescriber. Tubing and unused portions of vials should be discarded after 12 hours., New Bag 09/21/2019 6:22 AM CDT 30 mcg/kg/min 40.14 mL/hr New Bag 09/21/2019 5:27 AM CDT 30 mcg/kg/min 40.14 mL/hr propofol IV infusion New Bag 10/06/2019 1:30 PM 40 mcg/kg/min 52.56 mL/hr 5-75 mcg/kg/min CDT 219 kg (6.57-98.55 mL/hr), IV Infusion, TITRATE, Sedation-RASS score (-1 to -2), Starting 10/02/19 at 0504, Initiate infusion at 5 mcg/kg/min and titrate by 5 mcg/kg/min every 30 seconds to 10 minutes to goal sedation score. Maximum dose = 75 mcg/kg/min. If goal not maintained at maximum allowed dose, contact prescriber. Tubing and unused portions of vials should be discarded after 12 hours., New Bag 10/06/2019 12:30 PM CDT 40 mcg/kg/min 52.56 mL/hr New Bag 10/06/2019 11:33 AM CDT 40 mcg/kg/min 52.56 mL/hr propofol IV infusion New Bag 10/08/2019 6:48 PM CDT 10 mcg/kg/min 12.6 mL/hr 5-75 mcg/kg/min 210 kg (6.3-94.5 mL/hr), IV Infusion, TITRATE, Sedation-RASS score (0 to -1), Starting [place] 10/06/19 at 1408, Initiate infusion at 5 mcg/kg/min and titrate by 5 mcg/kg/min every 30 seconds to 10 minutes to goal sedation score. Maximum dose = 75 mcg/kg/min. If goal not maintained at maximum allowed dose, contact prescriber. Tubing and unused portions of vials should be discarded after 12 hours., New Bag 10/08/2019 3:28 PM CDT 10 mcg/kg/min 12.6 mL/hr New Bag 10/08/2019 11:02 AM CDT 10 mcg/kg/min 12.6 mL/hr ramelteon (ROZEREM) tablet 8 mg Given 10/24/2019 6:18 AM CDT 8 mg 8 mg, Oral, ONCE NOW, 1 dose, [facility] 10/24/19 at 0615, Routine Saline Bubble Study Given 11/01/2019 10:20 AM CDT 6 mL 6 mL, Injection, SEE-INSTRUCTIONS, Starting [facility] 11/07/19 at 0943, Until 11/10/19 at 1245, Routine sincalide (KINEVAC) injection 4.1 Given 10/10/2019 1:31 PM CDT 4.1 mcg Left Arm mcg 4.1 mcg, IV Push, ONCE, 1 dose, [facility] 10/10/19 at 1545, Routine sodium bicarbonate 1 mEq/mL (8.4 %) Given 09/21/2019 3:15 AM CD T 150 mEq injection 150 mEq 150 mEq, Slow IV Push, ONCE, 1 dose, 09/21/19 at 0415, Routine sodium chloride 7% (HYPER-OREN) nebulizer Given 10/08/2019 7:08 AM CDT 4 mL solution 4 mL 4 mL, Inhalation, BID, First dose on Mon09/26/19 at 1300, Until Discontinued, Routine Given 10/07/2019 6:47 PM CDT 4 mL Given 10/07/2019 7:19 AM CDT 4 mL sodium chloride 7% (HYPER-OREN) nebulizer Given 10/21/2019 7:13 AM CDT 4 mL solution 4 mL 4 mL, Inhalation, TID, First dose on Mon10/08/19 at 1400, Until Discontinued, Routine Given 10/20/2019 9:03 PM CDT 4 mL Given 10/20/2019 2:35 PM CDT 4 mL sulfur hexafluoride microsphr (LUMASON) Given 11/01/2019 10:45 A M CDT 5 mL injection 5 mL 5 mL, Intravenous, ONCE, 1 dose, 11/01/19 at 1045, Routine tc 99m-mebrofenin injection Given 10/10/2019 2:12 PM CDT 9.7 mi llicuries Left Arm 10 millicurie 10 millicurie, Intravenous, ONCE, 1 dose, [facility] 10/10/19 at 1415, Routine traMADol (ULTRAM) tablet 50 mg Given 10/18/2019 8:45 AM CDT 50 mg 50 mg, Oral, ONCE NOW, 1 dose, Mon10/18/19 at 0900, Routine traMADol (ULTRAM) tablet 50 mg Given 11/01/2019 5:25 AM CDT 50 mg 50 mg, Oral, Q8HPRN, Starting Mon10/18/19 at 1353, Until Mon11/01/19 at 1435, Routine, Pain (scale 7-10) Given 10/31/2019 9:46 PM CDT 50 mg Given 10/30/2019 9:51 PM CDT 50 mg traMADol (ULTRAM) tablet 50 mg Given 11/01/2019 11:31 PM CDT 50 mg 50 mg, Oral, ONCE, 1 dose, 11/02/19 at 0030, Routine vancomycin (VANCOCIN) 1,250 mg in NaCl Given 09/29/2019 9:53 PM CDT 1,250 mg 0.9% (NS) 250 mL piggyback 1,250 mg, IV Piggyback, Q12H ABX, First dose on Mon09/29/19 at 1030, Until Discontinued, 250 mL, Reason for Anti-Infective: Documented Infection, Documented Infection Site: Respiratory, Duration of Therapy: 7 days Given 09/29/2019 1:52 PM CDT 1,250 mg vancomycin (VANCOCIN) 1,500 mg in NaCl Given 09/28/2019 10:22 PM CDT 1,500 mg 0.9% (NS) 250 mL piggyback 1,500 mg (rounded from 3,345 mg = 15 mg/kg 223 kg), IV Piggyback, Q12H ABX, First dose on Janie 09/26/19 at 1030, Until Discontinued, 250 mL, Reason for Anti-Infective: Documented Infection, Documented Infection Site: Respiratory, Duration of Therapy: 7 days Given 09/28/2019 11:03 AM CDT 1,500 mg Given 09/27/2019 10:57 PM CDT 1,500 mg warfarin (COUMADIN) tablet 10 mg Given 11/07/2019 6:48 PM CDT 10 mg 10 mg, Oral, DAILY AT 1700, First dose on Mon11/04/19 at 1700, Until Discontinued, Routine Given 11/06/2019 4:46 PM CDT 10 mg Given 11/05/2019 5:42 PM CDT 10 mg warfarin (COUMADIN) tablet 2.5 mg Given 11/03/2019 5:42 PM CDT 2.5 mg 2.5 mg, Oral, ONCE AT 1700, 1 dose, [place] 11/03/19 at 1700, Routine warfarin (COUMADIN) tablet 2.5 mg Given 11/06/2019 4:41 PM CDT 2.5 mg 2.5 mg, Oral, ONCE AT 1700, 1 dose, [facility] 11/06/19 at 1700, Routine warfarin (COUMADIN) tablet 2.5 mg Given 11/12/2019 6:48 PM CDT 2.5 mg 2.5 mg, Oral, ONCE AT 1700, 1 dose, [facility] 11/12/19 at 1700, Routine warfarin (COUMADIN) tablet 2.5 mg Given 11/13/2019 9:07 PM CDT 2.5 mg 2.5 mg, Oral, ONCE AT 1700, 1 dose, 11/13/19 at 1700, Routine warfarin (COUMADIN) tablet 5 mg Given 11/01/2019 6:07 PM CDT 5 mg 5 mg, Oral, DAILY AT 1700, First dose on Janie 10/31/19 at 1700, Until Discontinued, Routine Given 10/31/2019 5:14 PM CDT 5 mg warfarin (COUMADIN) tablet 7.5 mg Given 11/03/2019 5:42 PM CDT 7.5 mg 7.5 mg, Oral, DAILY AT 1700, First dose on 11/02/19 at 1700, Until Discontinued, Routine Given 11/02/2019 5:33 PM CDT 7.5 mg zinc oxide 20 % ointment Applied 11/05/2019 3:53 AM CDT Topical, PRN, Starting 10/21/19 at 1953, Until 11/09/19 at 0831, Routine, wound care Applied 10/27/2019 9:26 PM CDT Applied 10/23/2019 8:00 PM CDT documented in this encounter Insurance Payer Benefit Plan / Subscriber ID Effective Phone Address T ype Group Dates MEDICAID MEDICAID PENDING [id number] [place] [address] [place] [address] documented as of this encounter
== END 2019-11-19 23:08 | disposition home or self-care (01) ==
LOC: ER 21:04
DX: Z00.00 Encounter for general adult medical examination without abnormal findings (principal)
CPT/HCPCS: 71045; 99284